=== PATIENT | female | born 1955 | race Caucasian/White ===

== ENCOUNTER 2023-09-30 15:43 | Outpatient (OUT) | payer MEDICARE, SELFPAY ==
--- NOTE | 2023-09-30 15:56 | XR_ITS ---
The [address] [address] Patient Name: TULIO HARGROVE MRN: [id number] date: 1955 Sex: F Assigned Patient Location: [facility] Current Patient Location: [facility] Accession/Order Number: [id number] Exam Date: 09/30/2023 16:00 Report Date: 09/30/2023 17:41 At the request of: JODIE CEDEÑO Procedure: XR chest 2V EXAM: XR chest 2V HISTORY: mild asthma exacerbation J45.901 . Cough for 2 months. COMPARISON: 06/02/2013 TECHNIQUE: Upright PA and lateral chest x-ray FINDINGS: The heart is not enlarged and the vasculature is not distended. No acute infiltrate, effusion or pneumothorax is identified. The osseous structures are grossly intact. XR/XR chest 2V IMPRESSION: No acute infiltrate or evidence of cardiac decompensation. The overall appearance of the chest is essentially unchanged. Electronically authenticated by: KIRSTIE AL Date: 09/30/2023 17:41
== END 2023-09-30 15:44 | disposition home or self-care (01) ==
LOC: RAD 15:51
PROVIDERS: PCP Family Medicine; Visit Provider Internal Medicine
DX: J45.901 Unspecified asthma with (acute) exacerbation (principal)
CPT/HCPCS: 71046

== ENCOUNTER 2024-06-09 10:26 | Outpatient (OUT) | payer MEDICARE, SELFPAY ==
--- OUTSIDE RECORDS SUMMARY | 2024-06-09 10:43 | XMS_ITS | CCD ---
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 Operator Name Role Phone NO, PHYSICIAN Unavailable Unavailable Suzanne Douglas Primary Care Provider [phone] Suzanne Douglas Primary Care Provider German Miranda Unavailable Charline Wilburn Unavailable Anais Farley Unavailable Mary Anne Chan Unavailable [phone] SUZANNE DOUGLAS Primary Care Physician [phone] Suzanne Douglas MD Primary Care Provider DR CHIKI MONIQUE Admitting Unavailable MISC, DR ZEPEDA Primary Care Unavailable ENEIDA, DR MONET Consulting Unavailable HAY, DR MONET Attending Unavailable VERHOFF, DR SUZANNE Rosales Consulting Unavailable VERHOALIN, DR SUZANNE Rosales Attending Unavailable VERHOALIN, DR SUZANNE Rosales Admitting Unavailable Freddy KRAUS Referring Unavailable Freddy KRAUS Attending Unavailable Freddy KRAUS Admitting Unavailable Suzanne Douglas MD Primary Care Provider Haider Lopez MD Unavailable [phone] Neftaly Mcmanus DO Unavailable [phone] MARY ANNE BABB Attending Unavailalessandra e NEFTALY MCMANUS Attending Unavailable HAIDER LOPEZ Referring Unavailable NEFTALY MCMANUS Attending Unavailable HAIDER LOPEZ Referring Unavailable Suzanne Douglas MD Primary Care Provider CARLOS HOROWITZ Referring Unavailable SUZANNE DOUGLAS Primary Care Unavailable SUZANNE DOUGLAS Primary Care Unavailable SUZANNE DOUGLAS Referring Unavailable SUZANNE DOUGLAS Referring Unavailable SUZANNE DOUGLAS Primary Care Unavailable SUZANNE DOUGLAS Attending Unavailable Allergies Allergy Classification Reported Allergen(s) Allergy Type Date of Onset Reaction(s) Facility (20 sources) Losartan Drug Allergy 4 Swelling, Rash [place], [place] (20 sources) montelukast; Translations: [montelukast] Drug Allergy 1 Rash, hives, Urticaria (disorder) [place], [place] (2 sources) montelukast; Translations: [Singulair] Drug Allergy 1 [facility] Repository Medications Current Medications Medication Drug Class(es) Dates Sig (Normalized) Sig (Original) Acetaminophen / oxyCODONE (2 sources) Opioid Agonist Start: 04-21-2011 Tylox 500 mg-5 mg Cap 1 cap(s), Oral, q4hr as needed for pain, 20 tab(s), Refill(s) 0 Start Date: 04/21/11 Status: Ordered Start: 04-21-2011 Tylox 500 mg-5 mg Cap 1 cap(s), Oral, q4hr PRN as needed for pain, 20 tab(s), Refill(s) 0, 0, Print Requisition Start Date: 04/21/11 Status: Ordered [id number] 200 actuat albuterol 0.09 mg/actuat metered dose inhaler (20 sources) beta2-Adrenergic Agonist Start: 09-23-2023 Albut clover Sulfate (Proair Hfa) 90 mcg/actuation HFA aerosol inhaler Active 2 INH INHALATION Every 4 hours September 23, 2023 12:00am Start: 09-06-2021 take 2 puff(s) by in halation every four hours as needed Albuterol Sulfate HFA 108 (90 Base) MCG/ACT 2 puffs as needed Inhalation every 4 hrs Aug, Active Start: 01-02-2020 take 1-2 puff(s) by inhalation every four hours as needed ProAir HFA 108 (90 Base) MCG/ACT 1-2 puff as needed Inhalation every 4 hrs Dec, Active Start: 06-24-2017 take 2 puff(s) by in halation every six hours as needed for wheezing albuterol sulfate HFA (PROAIR HFA) 108 (90 Base) MCG/ACT inhaler Inhale 2 puffs into the lungs every 6 hours as needed for Wheezing or Shortness of Breath 1 Inhaler 3 06/24/2017 Active Start: 06-24-2017 take 2 puff(s) by in halation every six hours as needed for wheezing albuterol sulfate HFA (PROAIR HFA) 108 (90 Base) MCG/ACT inhaler Inhale 2 puffs into the lungs every 6 hours as needed for Wheezing or Shortness of Breath 1 Inhaler 3 06/24/2017 Active End: 06-02-2024 take 2 puff(s) by inhalation once daily in the morning albuterol sulfate HFA (PROVENTIL HFA) 108 (90 Base) MCG/ACT inhaler Inhale 2 puffs into the lungs every morning 06/02/2024 Discontinued (Stop Taking at Discharge) amoxicillin 875 mg / clavulanate 125 mg oral tablet (1 source) Penicillin-class Antibacterial Start: 03-09-2024 take 1 tablet by mouth every twelve hours Amoxicillin-Pot Clavulanate Active 1 TAB PO Every 12 hours 19 03March 09, 2024 12:00am Apo-Fluticasone Propionate 0.05 mg/inh nasal spray (2 sources) Start: 04-15-2011 take 2 spray(s) nasal route once daily Apo-Fluticasone Propionate 0.05 mg/inh nasal spray 2 SPRAYS EACH NOSTRIL, Nasal, Daily, Refill(s) 0 Start Date: 04/15/11 Status: Ordered ascorbic acid 500 mg chewable tablet (15 sources) Vitamin C take 1 tablet by mouth once daily vitamin C (ASCORBIC ACID) 500 MG tablet Take 1 tablet by mouth daily Active ascorbic acid 60 mg / beta carotene 5000 unt / copper sulfate 40 mg / dl-alpha tocopheryl acetate 30 unt / sodium selenite 0.04 mg / zinc oxide 40 mg oral tablet (2 sources) Vitamin C take 1 tablet by mouth once daily Multiple Vitamins-Minerals (THERAPEUTIC MULTIVITAMIN-MINERAL S) tablet Take 1 tablet by mouth daily. 0 Active azithromycin 250 mg oral tablet (2 sources) Macrolide Antimicrobial Start: 09-25-2021 Azithromycin 250 MG 2 tablets on the first day, then 1 tablet daily for 4 days Orally Once a day for 5 day(s) Aug, Active benzonatate 200 mg oral capsule (10 sources) Non-narcotic Antitussive Start: 09-06-2021 take 1 capsule by mouth every eight hours Benzonatate 200 MG 1 capsule Orally Three times a day for 10 day(s) Aug, Active Start: 08-28-2019 take 1 capsule by [facility] three times daily as needed for cough benzonatate (TESSALON) 100 MG capsule TAKE 1 CAPSULE BY MOUTH THREE TIMES A DAY NEEDED FOR COUGH 0 08/28/2019 Active calcium carbonate 500 mg oral tablet (2 sources) take 1 tablet by mouth once daily calcium carbonate (OSCAL) 500 MG TABS tablet Take 500 mg by mouth daily 0 Active calcium chloride 0.0014 meq/ml / potassium chloride 0.004 meq/ml / sodium chloride 0.103 meq/ml / sodium lactate 0.028 meq/ml injectable solution (1 source) Start: 06-02-19 IntraVENous, at 75 mL/hr, CONTINUOUS, Starting on Wed06/02/24 at 0700, Pre-procedure(GI) cetirizine hydrochloride 10 mg oral tablet (20 sources) Histamine-1 Receptor Antagonist take 1 tablet by mouth at bedtime cetirizine (ZYRTEC) 10 MG tablet Take 1 tablet by mouth in the morning and at bedtime Active chlorhexidine gluconate 1.2 mg/ml mouthwash (2 sources) Start: 08-17-19 chlorhexidine (PERIDEX) 0.12 % solution RINSE WITH 1/2FL OZ EVERY 8 HOURS, HOLD FOR 60 SECONDS THEN SPIT OUT 1 08/16/2018 Active Chondroitin Sulfates / Glucosamine (15 sources) GLUCOSAMINE-ISAIAH DROIT IN PO Take by mouth Active GLUCOSAMINE-ISAIAH DROITIN PO Take by mouth 0 Active cinnamon preparation 500 mg oral tablet (15 sources) Non-Standardized Food Allergenic Extract take 1 tablet by mouth once daily Cinnamon 500 MG TABS Take by mouth daily Active CINNAMON PO Take by mouth Active CINNAMON PO Take by mouth 0 Active take 1 tablet by mouth once bashir y Cinnamon 500 MG TABS Take by mouth daily 0 Active ciprofloxacin 500 mg oral tablet (3 sources) Quinolone Antimicrobial Start: 06-03-2023 Cipro 500 mg Tab See Instructions, Take 1 tab day prior to procedure and 1 tab day of procdure - afterwards, # 2 tab(s), Refills(s) 0, Pharmacy: [facility]/pharmacy #[id number] Start Date: 06/03/23 Status: Ordered Start: 03-13-2021 Cipro 500 mg T ab See Instructions, Take 1 tab day prior to procedure and 1 tab day of procdure - afterwards, # 2 tab(s), Refills(s) 0, Pharmacy: [facility]/pharmacy #[id number], 165, cm, 04/03/21 14:42:00 EDT, Height/Length Dosing, 105.9, kg, 04/03/21 14:42:00 EDT, Weight Dosing Start Date: 03/24/22 Status: Ordered docosahexaenoic acid 120 mg / eicosapentaenoic acid 180 mg oral capsule (15 sources) take 1 capsule by mouth once daily [place]-3 Fatty Acids (FISH OIL) 1000 MG CAPS Take 1 capsule by mouth daily Active docosahexaenoic acid 1000 mg / omega-3 acid ethyl esters (senior care) 300 mg delayed release oral capsule (3 sources) [place]-3 Fatty Ac ids (FISH OIL) 1000 MG CPDR Take by mouth daily. 0 Active doxycycline monohydrate 100 mg oral capsule (1 source) Tetracycline-clas s Drug Start: 09-29-19 take 1 capsule by mouth every twelve hours Doxycycline Monohydrate 100 MG 1 capsule Orally every 12 hrs for 10 days September, Active esomeprazole 40 mg delayed release oral capsule (20 sources) Proton Pump Inhibitor Start: 04-15-20 11 End: 09-30-19 24 take 1 capsule by mouth once daily before breakfast esomeprazole (NEXIUM) 40 MG delayed release capsule Take 1 capsule by mouth every morning (before breakfast) 09/30/2023 Active Fish Oils (9 sources) Start: 01-04-20 19 Fish Oil Oral Start Date: 01/03/19 Status: Ordered take 1 capsule by mouth once nick ly Fish Oil 1000 MG 1 capsule Orally Once a day Active 14 actuat fluticasone furoate 0.1 mg/actuat dry powder inhaler (13 sources) Corticosteroid Start: 03-13-2024 End: 06-02-2024 fluticasone (ARNUITY ELLIPTA) 100 MCG/ACT AEPB One puff BID and rinse after use 1 each 1 03/13/2024 06/02/2024 Discontinued (Stop Taking at Discharge) Start: 10-07-2021 End: 10-07-2022 take 2 puff(s) by inhalation twice daily fluticasone (FLOVENT HFA) 220 MCG/ACT inhaler Inhale 2 puffs into the lungs 2 times daily 12 g 0 10/07/2021 10/07/2022 Active fluticasone (SUNNI NASE) 50 MCG/ACT nasal spray 2 sprays by Nasal route daily 0 Active glimepiride 4 mg oral tablet (19 sources) Sulfonylurea Start: 12-09-2023 take 1 tablet by mouth once daily in the morning glimepiride (AMARYL) 4 MG tablet Take 1 tablet by mouth every morning 90 tablet 1 01/10/2024 Active Start: 03-15-2023 take 1 tablet by harlan th in the morning glimepiride (Amaryl) 2 MG tablet Take 1 tablet by mouth in the morning. 03/15/2023 Active Start: 07-01-2022 take 1 tablet by harlan th once daily in the morning glimepiride (AMARYL) 2 MG tablet TAKE 1 TABLET BY MOUTH EVERY DAY IN THE MORNING 90 tablet 1 07/01/2022 Active Start: 02-05-2022 take 1 tablet by harlan th once daily in the morning glimepiride (AMARYL) 2 MG tablet TAKE 1 TABLET BY MOUTH EVERY DAY IN THE MORNING 90 tablet 1 02/05/2022 Active Glimepiride Acti ve hydroCHLOROthiazide 25 mg oral tablet (20 sources) Thiazide Diuretic Start: 04-15-2011 take 1 tablet by mouth once daily hydroCHLOROthiazide (HYDRODIURIL) 25 MG tablet TAKE 1 TABLET BY MOUTH EVERY DAY 90 tablet 1 01/10/2024 Active ipratropium bromide 0.042 mg/actuat metered dose nasal spray (14 sources) Anticholinergic Start: 10-30-2019 take 2 spray(s) nasal route once daily ipratropium (ATROVENT) 0.06 % nasal spray SPRAY 2 SPRAYS INTO EACH NOSTRIL EVERY DAY 1 Bottle 1 10/30/2019 Active Start: 05-12-2018 Ipratropium Br omide Active 2 PERCENT INTRANASAL Every morning May 12, 2018 1:00am take 2 drop(s) nasal route three times daily as needed Ipratropium [place] 0.06 % 2 drops in each nostril as needed Nasally Three times a day for 90 days Active lisinopril 5 mg oral tablet (20 sources) Angiotensin Converting Enzyme Inhibitor Start: 09-19-2018 take 1 tablet by mouth once daily lisinopril (PRINIVIL;ZESTRIL) 5 MG tablet Take 1 tablet by mouth daily 90 tablet 1 01/10/2024 Active loratadine 10 mg oral tablet (11 sources) Start: 05-12-2018 take 10 mg by mouth once daily in the morning Loratadine Active 10 MG PO Every morning May 12, 2018 1:00am lovastatin 40 mg oral tablet (20 sources) HMG-CoA Reductase Inhibitor Start: 04-15-2011 take 1 tablet by mouth once daily lovastatin (MEVACOR) 40 MG tablet Take 1 tablet by mouth nightly 90 tablet 1 01/10/2024 Active magnesium sulfate 0.0277 meq/ml / potassium sulfate 0.0374 meq/ml / sodium sulfate 0.257 meq/ml oral solution (3 sources) Start: 05-11-2024 End: 06-02-2024 bsmfhs-oqjcwucbr-kku sulfate (SUPREP BOWEL PREP KIT) 17.5-3.13-1.6 GM/177ML SOLN solution Indications: Colon cancer screening Use as directed. 1 each 05/11/2024 06/02/2024 Discontinued (LIST CLEANUP) meloxicam 15 mg oral tablet (20 sources) Nonsteroidal Anti-inflammatory Drug Start: 08-19-2017 take 1 tablet by mouth once daily meloxicam (MOBIC) 15 MG tablet Take 1 tablet by mouth daily 30 tablet 5 01/10/2024 Active 24 hr metFORMIN hydrochloride 500 mg extended release oral tablet (20 sources) Biguanide Start: 06-03-2023 take 2 tablets by mouth once daily at breakfast metFORMIN (GLUCOPHAGE-XR) 500 MG extended release tablet TAKE 2 TABLETS BY MOUTH EVERY DAY WITH BREAKFAST 180 tablet 1 01/10/2024 Active Start: 02-15-2019 take 2 tablets by mo uth once daily at breakfast metFORMIN (GLUCOPHAGE-XR) 500 MG extended release tablet TAKE 2 TABLETS BY MOUTH EVERY DAY WITH BREAKFAST 180 tablet 1 07/01/2022 Active Start: 01-04-2019 take 1000 mg by mout h once daily in the morning Metformin Active 1000 MG PO Every morning January 04, 2019 12:00am Start: 01-03-2019 take 1 tablet by harlan th twice daily metformin 500 mg ER Tab 500 mg = 1 tab(s), Oral, BID Start Date: 01/03/19 Status: Ordered Start: 05-12-2018 End: 01-04-2019 Metformin Discontinued Decem 2017 1:00am January 04, 2019 7:48am methylPREDNISolone 4 mg oral tablet (5 sources) Corticosteroid Start: 03-09-2024 take 1 tablet by mouth once Methylprednisolone (Medrol (Ronni)) 4 mg tablets,dose pack Active 0 PO per package directions March 09, 2024 12:00am PO PER PKG DIR for 6 days Start: 05-05-2022 methylPREDNISo lone 4 MG as directed Orally Once a day for 6 days Apr, Active Start: 09-06-2021 methylPREDNISo lone 4 MG as directed Orally Once a day for 6 days Aug, Active 24 hr metoprolol succinate 25 mg extended release oral tablet (20 sources) beta-Adrenergic Koby Start: 06-04-2023 take 1 tablet by mouth every twenty-four hours in the morning metoprolol succinate XL (Toprol-XL) 25 MG 24 hr tablet Take 1 tablet by mouth in the morning. 06/04/2023 Active Start: 05-12-2018 take 1 tablet by harlan th once daily metoprolol succinate (TOPROL XL) 25 MG extended release tablet Take 1 tablet by mouth daily 90 tablet 1 01/10/2024 Active Mometasone-Formoterol (Dulera) 100-5 mcg/actuation HFA aerosol inhaler (4 sources) Start: 12-09-2023 take 1 puff(s) by inhalation twice daily Mometasone-Formoterol (Dulera) 100-5 mcg/actuation HFA aerosol inhaler Active 2 PUFF INHALATION Twice daily December 09, 2023 10:59am Start: 09-30-2023 End: 12-09-2023 take 1 puff(s) by inhalation twice daily Mometasone-Formoterol (Dulera) 100-5 mcg/actuation HFA aerosol inhaler Discontinued 2 PUFF INHALATION Twice daily 3 90 September 30, 2023 12:00am December 09, 2023 11:00am Multiple Vitamins-Minerals (THERAPEUTIC MULTIVITAMIN-MINERALS) tablet (5 sources) take 1 tablet by mouth once daily Multiple Vitamins-Minerals (THERAPEUTIC MULTIVITAMIN-MINERALS) tablet Take 1 tablet by mouth daily. 0 Active Multiple Vitamins-Minerals ( ZINC PO) (9 sources) Multiple Vitamin s-Minerals (ZINC PO) Take by mouth Active Multiple Vitamin s-Minerals (ZINC PO) Take by mouth 0 Active Siygdzuy-Wql-Tfst-Fa-Vit K-Lut (Multivitamin Women 50 Plus) 8 mg iron-400 mcg-300 mcg Tablet (2 sources) Start: 03-09-2019 take 1 tablet by mouth once daily Uuxgqsvs-Yhd-Tdyn-Fa-Vit K-Lut (Multivitamin Women 50 Plus) 8 mg iron-400 mcg-300 mcg Tablet Active 1 TAB PO Daily March 09, 2019 12:00am Multivitamins (7 sources) take 1 tablet by mouth once daily Multivitamins 1 tab(s) Orally Daily Active Multivitamins and Minerals (2 sources) Start: 04-15-2011 Multivitamins and Minerals Refill(s) 0 Start Date: 04/15/11 Status: Ordered [place] 9-Cyd-Chu-Fish Oil (Fish Oil) 300-1,000 mg Capsule,Delayed Release(Dr/Ec) (2 sources) Start: 05-12-2018 take 300-1000 mg by mouth once daily [place] 9-Kyb-Ery-Fish Oil (Fish Oil) 300-1,000 mg Capsule,Delayed Release(Dr/Ec) Active 1 CAP PO Daily May 12, 2018 1:00am polyethylene glycol 400 4 mg/ml / propylene glycol 3 mg/ml ophthalmic solution (2 sources) polyethyl glycol -propyl glycol 0.4-0.3 % (SYSTANE) 0.4-0.3 % ophthalmic solution 1 drop daily as needed for Dry Eyes 0 Active ProAir HFA 108 (90 Base) MCG/ACT (2 sources) Start: 01-02-2020 take 1-2 puff(s) by inhalation every four hours as needed ProAir HFA 108 (90 Base) MCG/ACT 1-2 puff as needed Inhalation every 4 hrs Dec, Active triamcinolone acetonide 0.001 mg/mg oral paste (2 sources) Corticosteroi d Start: 08-30-2018 triamcinolone acetonide (KENALOG) 0.1 % paste APPLY A FILM AFTER MEALS AND BEFORE BED 3 08/30/2018 Active VITAMIN D PO (15 sources) VITAMIN D PO Nathan e by mouth daily Active VITAMIN D PO Nathan e by mouth Active VITAMIN D PO Nathan e by mouth 0 Active VITAMIN D PO Nathan e by mouth daily 0 Active vitamin e 180 mg oral capsule (20 sources) Start: 05-12-2018 take 1 capsule by mouth once daily Vitamin E Active 1 CAP PO Daily May 12, 2018 1:00am take 1 capsule by mouth in the m orning alpha tocopherol (Vitamin E) 400 units capsule Take 1 capsule by mouth in the morning. Active take 1 capsule by mouth once nick ly vitamin E 400 UNIT capsule Take 400 Units by mouth daily 0 Active Vitamin E 400 UNIT (7 sources) take 1 tablet by harlan th once daily Vitamin E 400 UNIT 1 tablet Orally Once a day Active Zinc (4 sources) ZINC PO Take by mouth Active zinc gluconate 50 mg oral tablet (8 sources) take 1 tablet by harlan th in the morning zinc gluconate 50 MG tablet Take 50 mg by mouth in the morning. Active Completed/Discontinued Medications Medication Drug Class(es) Dates Sig (Normalized) Sig (Original) amitriptyline hydrochloride 10 mg oral tablet (2 sources) Tricyclic Antidepressant Start: 01-04-2019 End: 09-23-2023 take 10 mg by mouth once daily at bedtime Amitriptyline Discontinued 10 MG PO Daily at bedtime January 04, 2019 12:00am September 23, 2023 11:14am 120 actuat budesonide 0.08 mg/actuat / formoterol fumarate 0.0045 mg/actuat metered dose inhaler (2 sources) Corticosteroid, beta2-Adrenergic Agonist Start: 09-30-2023 End: 12-09-2023 take 1 puff(s) by inhalation twice daily Budesonide-Formote rol (Symbicort) 80-4.5 mcg/actuation HFA aerosol inhaler Discontinued 2 PUFF INHALATION Twice daily 10.2 30 September 30, 2023 12:00am December 09, 2023 10:59am Rinse after use. May substitute with generic budesonide/formote rol or Breyna, whichever is covered by insurance or cheaper for the patient. Dispense #1 inhaler Dexamethasone (6 sources) Corticosteroid Start: 09-06-2021 DEXAMETHASONE Aug, 40 mg Start: 09-06-2021 DEXAMETHASONE Aug, 1 mL docusate sodium 50 mg oral capsule (11 sources) Start: 01-04-2019 End: 09-23-2023 take 1 capsule by mouth once daily Docusate Sodium (Stool Softener) 50 mg Capsule Discontinued 50 MG PO Daily January 04, 2019 12:00am September 23, 2023 11:14am Start: 01-03-2019 Dulcolax Stool Softener See Instructions, 100 mg Oral as needed, Refills(s) 0 Start Date: 01/03/19 Status: Ordered homatropine methylbromide 0.3 mg/ml / HYDROcodone bitartrate 1 mg/ml oral solution (2 sources) Opioid Agonist, Cholinergic Muscarinic Agonist Start: 05-12-2018 End: 09-23-2023 take 1 [tsp_us] by mouth every six hours Hydrocodone-Homatropine Discontinued 1 TSP PO Q6H May 12, 2018 1:00am September 23, 2023 11:14am Ucukaudy-Lmg-Egml ous Fumarate (Multi Vitamin) 9 mg iron/15 mL Liquid (2 sources) Start: 05-12-2018 End: 03-09-2019 take 1 tablet by mouth once daily Qolpcito-Ckv-Wrxnmbx Fumarate (Multi Vitamin) 9 mg iron/15 mL Liquid Discontinued 1 TAB PO Daily May 12, 2018 1:00am March 09, 2019 8:36am olopatadine 1 mg/ml ophthalmic solution (20 sources) Histamine-1 Receptor Inhibitor Start: 05-12-2018 End: 12-09-2023 take 1 drop(s) into the eye(s) once daily in the morning Olopatadine (Patanol) 0.1 % Drops Discontinued 1 - 2 DROPS EYE-BOTH Every morning May 12, 2018 1:00am December 09, 2023 10:58am Start: 10-28-2012 take 1 drop(s) into the eye(s) once daily olopatadine (PATANOL) 0.1 % ophthalmic solution Place 1 drop into both eyes daily. 15 mL 1 10/28/2012 Active Start: 04-15-2011 take 1 drop(s) into the eye(s) once daily Patanol 0.1% ophthalmic solution 1 drop(s), Eye-Both, Daily, mL, Refill(s) 0 Start Date: 04/15/11 Status: Ordered Start: 04-15-2011 take 1 drop(s) into the eye(s) once daily Patanol 0.1% ophthalmic solution 1 drop(s), Eye-Both, Daily, mL, Refill(s) 0 Start Date: 04/15/11 Status: Ordered take 1 drop(s) into the eye(s) twice daily Patanol 0.1 % 1 drop into affected eye Ophthalmic Twice a day ON HOLD Active take 1 drop(s) into the eye(s) twice daily Patanol 0.1 % 1 drop into affected eye Ophthalmic Twice a day ON HOLD Active predniSONE 20 mg oral tablet (4 sources) Start: 09-30-2023 End: 12-09-2023 Prednisone Discontinued 20 M G PO As Directed September 30, 2023 12:00am December 09, 2023 10:58am 3 tabs x 3 days, then 2 tabs x 3 days, then 1 tab x 3 days Start: 09-25-2021 predniSONE 10 MG 4 tablets daily for 3 days, 2 tablets daily for 3 days, 1 tablet daily for 7 days Orally Once a day for 13 days Aug, Active 5 ml sodium chloride 9 mg/ml injection (3 sources) Start: 06-02-2024 5-40 mL, Intra VENous, EVERY 12 HOURS SCHEDULED (2 times per day), First dose on Wed06/02/24 at 0900, Until Discontinued, For Line Patency: Peripheral IV = 5 mL; Midline or Central Line = 10 mL/lumen. If following IV push medication, administer flush at same rate as the IV push. Flush volume is determined by type of infusion therapy being given. For non-viscous solutions use: Peripheral IV = 5 mL Midline or Central Line = 10 mL/lumen For viscous solutions (i.e. blood components, parenteral nutrition, contrast media, or after obtaining blood sample) use: Peripheral IV = 10 mL Midline or Central Line = 20 mL/lumen, Pre-procedure(GI) Start: 06-02-2024 take 25 mL intraveno usly every hour as needed 25 mL, IntraVENous, at 100 mL/hr, PRN, If patient receiving piggyback infusions without ordered maintenance IV fluids or with frequent/long duration piggyback infusions, Starting on Wed06/02/24 at 0640, Administer at the same rate as the piggyback being infused., Pre-procedure(GI) Start: 01-03-2025 5-40 mL, Intra VENous, PRN, Starting on Wed06/02/24 at 0640, Until Discontinued, Line Care, After every IV line use, For Line Patency: Peripheral IV = 5 mL; Midline or Central Line = 10 mL/lumen. If following IV push medication, administer flush at same rate as the IV push. Flush volume is determined by type of infusion therapy being given. For non-viscous solutions use: Peripheral IV = 5 mL Midline or Central Line = 10 mL/lumen For viscous solutions (i.e. blood components, parenteral nutrition, contrast media, or after obtaining blood sample) use: Peripheral IV = 10 mL Midline or Central Line = 20 mL/lumen, Pre-procedure(GI) Vitamin E 400 unit(s) Cap (2 sources) Start: 04-15-2011 take 1 capsule by mouth once daily Vitamin E 400 unit(s) Cap 400 International_Unit = 1 cap(s), Oral, Daily, cap(s), Refills(s) 0 Start Date: 04/15/11 Status: Ordered Problems Active Problems Problem Classification Problem Date Documented Date Episodic/Chronic Acquired foot deformities (2 sources) Hammer toe; Translations: [Other hammer toe(s) (acquired), right foot] 07-15-2023 Chronic Asthma (20 sources) Asthma; Translations: [Cough variant asthma] Onset: 03-14-2011 Resolved: 03-17-2024 02-28-2015 Chronic Biliary tract disease (2 sources) Calculus of gallbladder with cholecystitis 11-17-2013 Episodic Cancer; other and unspecified primary (2 sources) History of bladder neoplasm 01-03-2019 Episodic Cardiac dysrhythmias (2 sources) Sinus bradycardia; Translations: [Bradycardia, unspecified] 06-02-2024 Episodic Conduction disorders (2 sources) Sinus node dysfunction; Translations: [Other specified heart block] 06-02-2024 Chronic Diabetes mellitus with complications (16 sources) Polyneuropathy due to type 2 diabetes mellitus; Translations: [Type 2 diabetes mellitus with diabetic polyneuropathy] Onset: 07-01-2022 07-09-2023 Chronic Diabetes mellitus without complication (19 sources) Type 2 diabetes mellitus without complication; Translations: [Type 2 diabetes mellitus without complications] Onset: 09-27-2021 Chronic Disorders of lipid metabolism (20 sources) Pure hypercholesterolemia; Translations: [Hypercholesterolemia] Onset: 03-14-2011 03-14-2011 Chronic Esophageal disorders (20 sources) Gastroesophageal reflux disease; Translations: [Gastroesophageal reflux disease without esophagitis] Onset: 03-14-2011 03-14-2011 Chronic Essential hypertension (20 sources) Benign essential hypertension; Translations: [Hypertensive disorder] Onset: 03-14-2011 03-14-2011 Chronic Menopausal disorders (13 sources) Postmenopausal bleeding; Translations: [Postmenopausal bleeding] Onset: 06-02-2013 06-02-2013 Chronic Other lower respiratory disease (6 sources) Chronic cough; Translations: [Cough] Episodic Other nervous system disorders (1 source) Metallic taste; Translations: [Metallic taste] Episodic Other nervous system disorders (1 source) Sensory disorder of smell and/or taste; Translations: [Disturbance of smell and taste] Episodic Other nutritional; endocrine; and metabolic disorders (1 source) Hypercalcemia; Translations: [Hypercalcemia] Chronic Other nutritional; endocrine; and metabolic disorders (2 sources) Obesity, unspecified; Translations: [Obesity, unspecified] 09-30-2023 Chronic Other nutritional; endocrine; and metabolic disorders (1 source) Body mass index (BMI) 39.0-39.9, adult; Translations: [Body Mass Index 39.0-39.9, adult] 09-30-2023 Chronic Other nutritional; endocrine; and metabolic disorders (4 sources) Severe obesity; Translations: [Morbid (severe) obesity due to excess calories] Onset: 10-13-2022 10-13-2022 Chronic Other screening for suspected conditions (not mental disorders or infectious disease) (3 sources) Patient encounter status; Translations: [Encounter for screening mammogram for malignant neoplasm of breast] Onset: 05-22-2024 Episodic Other upper respiratory disease (15 sources) Allergic rhinitis; Translations: [Allergic rhinitis, unspecified] Onset: 03-14-2011 02-28-2015 Chronic Other upper respiratory disease (7 sources) Chronic rhinitis; Translations: [Chronic rhinitis] Chronic Other upper respiratory disease (7 sources) Allergic rhinitis due to pollen; Translations: [Allergic rhinitis due to pollen] Chronic Other upper respiratory disease (1 source) Allergic rhinitis due to pollen Chronic Other upper respiratory disease (2 sources) Allergic rhinitis, unspecified; Translations: [Allergic rhinitis, cause unspecified] 09-30-2023 Chronic Other upper respiratory disease (6 sources) Hoarse; Translations: [Dysphonia] Episodic Other upper respiratory disease (6 sources) Singers' nodes; Translations: [Nodules of vocal cords] Episodic Other upper respiratory disease (6 sources) Vocal cord cyst; 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] Episodic Residual codes; unclassified (1 source) Obstructive sleep apnea syndrome; Translations: [Obstructive sleep apnea (adult) (pediatric)] Chronic Residual codes; unclassified (1 source) Obstructive sleep apnea (adult) (pediatric) Chronic Spondylosis; intervertebral disc disorders; other back problems (9 sources) Degeneration of lumbar intervertebral disc; Translations: [Other intervertebral disc degeneration, lumbar region] Onset: 07-09-2023 07-09-2023 Chronic Unclassified (2 sources) Patient encounter status; Translations: [Visit for screening mammogram] Past or Other Problems Problem Classification Problem Date Documented Da te Episodic/Chronic Cancer of bladder (15 sources) Malignant tumor of vault of bladder; Translations: [Malignant tumor of urinary bladder] Onset: 03-14-2011 Resolved: 10-13-2022 03-14-2011 Chronic Cancer of bladder (8 sources) H/O: malignant neoplasm; Translations: [Personal history of malignant neoplasm of bladder] Onset: 07-13-2023 07-13-2023 Episodic Diabetes mellitus without complication (13 sources) Impaired fasting glycaemia; Translations: [Impaired fasting glucose] Onset: 03-14-2011 Resolved: 04-12-2018 04-12-2018 Episodic Diseases of white blood cells (10 sources) Familial eosinophilia; 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] Onset: 03-17-2024 Resolved: 03-17-2024 09-30-2023 Chronic Immunizations and screening for infectious disease (1 source) Contact with and (suspected) exposure to other viral communicable diseases Onset: 09-28-2021 Resolved: 09-28-2021 Episodic Nonmalignant breast conditions (13 sources) Red breast; Translations: [Erythematous condition, unspecified] Onset: 08-14-2014 Resolved: 04-12-2018 04-12-2018 Episodic Other and unspecified benign neoplasm (13 sources) History of polyp of colon; Translations: [Personal history of colonic polyps] Onset: 06-02-2013 06-02-2013 Episodic Other nervous system disorders (13 sources) Burning sensation; Translations: [Other disturbances of skin sensation] Onset: 08-14-2014 Resolved: 04-12-2018 04-12-2018 Episodic Other nutritional; endocrine; and metabolic disorders (8 sources) Body mass index 30+ - obesity; Translations: [Body mass index (BMI) 39.0-39.9, adult] Onset: 03-17-2024 Resolved: 03-17-2024 12-09-2023 Chronic Other nutritional; endocrine; and metabolic disorders (8 sources) Obesity; Translations: [Obesity, unspecified] Onset: 03-17-2024 Resolved: 03-17-2024 09-30-2023 Chronic Other upper respiratory disease (9 sources) Deviated nasal septum; Translations: [Deviated nasal septum] Onset: 07-09-2023 07-09-2023 Episodic Other upper respiratory infections (18 sources) Acute sinusitis; Translations: [Acute laryngitis] Onset: 07-04-2012 07-04-2012 Episodic Unclassified (3 sources) Cough R05.9 Onset: 09-06-2021 Resolved: 09-06-2021 Unclassified (1 source) Persistent cough for 3 weeks or longer R05.3 Onset: 09-28-2021 Resolved: 09-28-2021 Unclassified (4 sources) Onset: 04-12-2024 04-12-2024 Viral infection (1 source) COVID-19 Results Test Name Value Interpretation Reference Range [facility] Basic Metabolic Panelon Anion gap [Moles/Vol] 11 mmol/L 9 - 17 mmol/L [facility] Calcium [Mass/Vol] 9.5 mg/dL 8.6 - 10. 4 mg/dL [email or web address] [place] Chloride [Moles/Vol] 100 mmol/L 98 - 10 7 mmol/L [facility] CO2 [Moles/Vol] 26 mmol/L 20 - 31 mmol/L [facility] Creatinine [Mass/Vol] 0.7 mg/dL 0.5 - 0.9 mg/dL [facility] Est, Glom Filt Rate - PINF [facility] Comment on above: These results are not intended for use in patients <18 years of age. eGFR results are calculated without a race factor using the 2020 CKD-EPI equation. Careful clinical correlation is recommended, particularly when comparing to results calculated using previous equations. The CKD-EPI equation is less accurate in patients with extremes of muscle mass, extra-renal metabolism of creatine, excessive creatine ingestion, or following therapy that affects renal tubular secretion. Glucose [Mass/Vol] 185 mg/dL High 70 - 99 mg/dL [facility] Interpretation and review of laboratory results Abnormal [facility] Potassium [Moles/Vol] 3.8 mmol/L 3.7 - 5.3 mmol/L [facility] Sodium [Moles/Vol] 137 mmol/L 135 - 144 mmol/L [facility] Urea nitrogen [Mass/Vol] 18 mg/dL 8 - 23 mg/dL [facility] Urea nitrogen/Creatinine [Mass ratio] 26 mg/mg High 9 - 20 [facility] Magnesiumon 06-02-2024 Magnesium [Mass/Vol] 1.8 mg/dL 1.6 - 2 .6 mg/dL [facility] No Panel Informationon 06-02 [facility] Troponinon 06-02-2024 Troponin I.cardiac High sensitivity method [Mass/Vol] 13 ng/L 0 - 14 ng/L [facility] Comment on above: High Sensitivity Tro ponin values cannot be compared with other Troponin methodologies. [facility] DBT Breast - bilateral kenny lemusn 05-23-2024 OVERALL ASSESSMENT: BIRADS: 1 Negative, no evidence of malignancy. A letter of notification will be mailed to the patient. Performing Facility: [place] [address] [facility] HISTORY: Screening. Family history of breast carcinoma. TECHNIQUE: Bilateral digital screening mammogram with CAD. Digital breast tomosynthesis imaging. FINDINGS: Two views of each breast were obtained. There are scattered areas of fibroglandular density. BREAST DENSITY CODE: S: Scattered No change from prior studies, the most recent of 05/20/2023. Suspicious calcifications: None. Suspicious mass: None. (If skin markers were applied, circles represent skin lesions and linear markers represent scars.) [facility] DBT Breast - bilateral scree Mariahrdered By: Mehul Doyle on 05-23-2024 [facility] Work Phone: [facility] DIGITAL SCREEN AYESHA Scott 05-23-2024 [facility] DIGITAL SCREEN BILATERAL HISTORY: Screening. Family history of breast carcinoma. TECHNIQUE: Bilateral digital screening mammogram with CAD. Digital breast tomosynthesis imaging. FINDINGS: Two views of each breast were obtained. There are scattered areas of fibroglandular density. BREAST DENSITY CODE: S: Scattered No change from prior studies, the most recent of 05/20/2023. Suspicious calcifications: None. Suspicious mass: None. (If skin markers were applied, circles represent skin lesions and linear markers represent scars.) IMPRESSION: OVERALL ASSESSMENT: BIRADS: 1 Negative, no evidence of malignancy. A letter of notification will be mailed to the patient. Performing Facility: [facility] [address] [place] [address] Interpreted by: Mehul Doyle Jr., MD Signed by: Mehul Doyle Jr., MD 05/23/24 Final result Normal [facility] DBT Breast - bilateral scree mariahharshil 05-22-2024 Radiology Study observation (narrative) [facility] Comp Metabolic Profon 2023 Albumin [Mass/Vol] 3.9 g/dL Normal 3.5-5.[address] [facility] Comment on above: Performed By: #### C P #### [facility] [address] [place] [address] [employer]amer: Naldo Tinsley MD #### MIKE GLYHGB #### [facility] [place] [address] [place], [place] [id number] Metal Stud Framer: Nelson Mckenzie MD Alkaline Phos 59 U/L Normal 35-104 [facility] Comment on above: Performed By: #### C P #### [facility] [address] [place] [address] [employer] Framer: Naldo Tinsley MD #### MIKE GLYHGB #### [facility] [place] [address] [place], [place] [id number] Metal [employer] Framer: Nelson Mckenzie MD ALT [Catalytic activity/Vol] 21 U/L Normal 5-[address] [facility] Comment on above: Performed By: #### C P #### [facility] [address] [place], [place] [id number] [employer] Framer: Naldo Tinsley MD #### LIPR, GLYHGB #### [facility] [address] [place], [place] [phone] Metal Stud Framer: Nelson Mckenzie MD Anion gap [Moles/Vol] 12 mmol/L Normal 9-[address] [facility] Comment on above: Performed By: #### C P #### [facility] [address] [place], [place] [id number] [employer] Stud Framer: Naldo Tinsley MD #### LIPR, GLYHGB #### [address] [id number] [employer] Framer: Nelson Mckenzie MD AST [Catalytic activity/Vol] 23 U/L Normal <[address] [facility] Comment on above: Performed By: #### C P #### [facility] [address] [place], [place] [id number] [employer] Framer: Naldo Tinsley MD #### LIPR, GLYHGB #### [address] [address] [employer] Framer: Nelson Mckenzie MD Bilirubin [Mass/Vol] 0.6 mg/dL Normal 0.3-1.2 [facility] Comment on above: Performed By: #### C P #### [facility] [address] [place], [place] [id number] Metal Stud Framer: Naldo Tinsley MD #### LIPR, GLYHGB #### [address] [address] [employer] Framer: Nelson Mckenzie MD BUN/CRE Ratio 30 High 9-20 [facility] Comment on above: Performed By: #### C P #### [facility] [address] [place], [place] [id number] Metal Stud Framer: Naldo Tinsley MD #### LIPMatt GLYHGB #### [facility] [address] [place], [place] [id number] Metal Stud Framer: Nelson Mckenzie MD Calcium [Mass/Vol] 9.7 mg/dL Normal 8.6-10.[address] [facility] Comment on above: Performed By: #### C P #### [facility] [address] [place], [place] [id number] [employer] Framer: Naldo Tinsley MD #### MIKE GLYHGB #### [address] [id number] Metal Stud Framer: Nelson Mckenzie MD Chloride [Moles/Vol] 98 mmol/L Normal 98-107 [facility] Comment on above: Performed By: #### C P #### [facility] [address] [place], [place] [id number] Metal Stud Framer: Naldo Tinsley MD #### MIKE GLYHGB #### [address] [address] [employer] Stud Framer: Nelson Mckenzie MD CO2 [Moles/Vol] 25 mmol/L Normal 20-31 [facility] Comment on above: Performed By: #### C P #### [facility] [address] [place], [place] [id number] Metal Stud Framer: Naldo Tinsley MD #### MIKE GLYHGB #### [address] [address] [employer] Stud Framer: Nelson Mckenzie MD Creatinine [Mass/Vol] 0.7 mg/dL Normal 0.5-0.[address] [facility] Comment on above: Performed By: #### C P #### [facility] [address] [facility] [place], [place] [id number] Metal Stud Framer: Naldo Tinsley MD #### MIKE GLYHGB #### [place] [address] [place], [place] 8077408 Metal Stud Framer: Nelson Mckenzie MD GFR/1.73 sq M.predicted among non-blacks MDRD (S/P/Bld) [Vol rate/Area] mL/min/{1.73_m2} Normal >[address] [facility] Comment on above: Result Comment: These results are not intended for use in patients <18 years of age. eGFR results are calculated without a race factor using the 2020 CKD-EPI equation. Careful clinical correlation is recommended, particularly when comparing to results calculated using previous equations. The CKD-EPI equation is less accurate in patients with extremes of muscle mass, extra-renal metabolism of creatine, excessive creatine ingestion, or following therapy that affects renal tubular secretion. Performed By: #### C P #### [facility] [address] [place], [place] [id number] Metal Stud Framer: Naldo Tinsley MD #### MIKE GLYHGB #### [address] [id number] Metal Stud Framer: Nelson Mckenzie MD Glucose [Mass/Vol] 138 mg/dL High 70-[address] [facility] Comment on above: Performed By: #### C P #### [facility] [address] [place], [place] [phone] Metal Stud Framer: Naldo Tinsley MD #### MIKE GLYHGB #### [place] [address] [place], [place] [id number] Metal Stud Framer: Nelson Mckenzie MD Potassium [Moles/Vol] 4.3 mmol/L Normal 3.7-5.[address] [facility] Comment on above: Performed By: #### C P #### [facility] [address] [place], [place] [id number] Metal Stud Framer: Naldo Tinsley MD #### LIPR, GLYHGB #### [facility] [address] [place], [place] [phone] Metal Stud Framer: Nelson Mckenzie MD Protein [Mass/Vol] 7.1 g/dL Normal 6.4-8.[address] [facility] Comment on above: Performed By: #### C P #### [facility] [address] [place], [place] [id number] Metal Stud Framer: Nadlo Tinsley MD #### LIPR, GLYHGB #### [place] [address] [place], [place] 7178308 Metal Stud Framer: Nelson Mckenzie MD Sodium [Moles/Vol] 135 mmol/L Normal 135-[address] [facility] Comment on above: Performed By: #### C P #### [facility] [address] [place], [place] [id number] Metal Stud Framer: Naldo Tinsley MD #### LIPR, GLYHGB #### [facility] [address] [place], [place] [address] Metal Stud Framer: Nelson Mckenzie MD Urea nitrogen [Mass/Vol] 21 mg/dL Normal 8-[address] [facility] Comment on above: Performed By: #### C P #### [facility] [address] [place], [place] [id number] Metal Stud Framer: Naldo Tinsley MD #### LIPR, GLYHGB #### [address] [phone] Metal Stud Framer: Nelson Mckenzie MD Hemoglobin A1Con 10-04-2023 Glucose [Mass/Vol] 243 mg/dL Normal [facility] Comment on above: Result Comment: The ADA and AACC recommend providing the estimated average glucose result to permit better patient understanding of their HBA1c result. Performed By: #### C P #### [facility] [address] [place], [place] [id number] Metal Stud Framer: Naldo Tinsley MD #### LIPR, GLYHGB #### [facility] [address] [place], [place] [id number] Metal Stud Framer: Nelson Mckenzie MD HbA1c (Bld) [Mass fraction] 10.1 % High 4.0-6.[address] [facility] Comment on above: Performed By: #### C P #### [facility] [address] [place], [place] [id number] Metal Stud Framer: Naldo Tinsley MD #### LIPR, GLYHGB #### [place] [address] [place], [place] [address] Metal Stud Framer: Nelson Mckenzie MD Lipid Profileon 10-04-2023 Cholesterol [Mass/Vol] 181 mg/dL Normal 0-[address] [facility] Comment on above: Result Comment: Cholesterol Guidelines: <200 Desirable 200-240 Borderline >240 Undesirable Performed By: #### C P #### [facility] [address] [place], [place] [phone] Metal Stud Framer: Naldo Tinsley MD #### LIPMatt, GLYHGB #### [facility] [address] [place] [id number] Metal [employer] Framer: Nelson Mckenzie MD Cholesterol in HDL [Mass/Vol] 68 mg/dL Normal >[address] [facility] Comment on above: Result Comment: HDL Guidelines: <40 Undesirable 40-59 Borderline >59 Desirable Performed By: #### C P #### [facility] [address] [place], [place] [phone] Metal Stud Framer: Naldo Tinsley MD #### LIPR, GLYHGB #### [facility] [address] [place], [place] 118[address] Metal Stud Framer: Nelson Mckenzie MD Cholesterol in LDL [Mass/Vol] 82 mg/dL Normal 0-[address] [facility] Comment on above: Result Comment: LDL Guidelines: <100 Desirable 100-129 Near to/above Desirable 130-159 Borderline >159 Undesirable Direct (measured) LDL and calculated LDL are not interchangeable tests. Performed By: #### C P #### [facility] [address] [place] [address] Metal Stud Framer: Naldo Tinsley MD #### LIPR, GLYHGB #### [address] [address] Metal [employer] Framer: Nelson Mckenzie MD Cholesterol in VLDL [Mass/Vol] 32 mg/dL Normal [facility] Comment on above: Performed By: #### C P #### [facility] [address] [place] [address] Metal Stud Framer: Naldo Tinsley MD #### LIPMatt, GLYHGB #### [address] [address] Metal Stud Framer: Nelson Mckenzie MD Cholesterol.total/Ch olesterol in HDL [Mass ratio] 3.0 {ratio} Normal [facility] Comment on above: Performed By: #### C P #### [facility] [address] [place] [address] Metal Stud Framer: Naldo Tinsley MD #### LIPMatt, GLYHGB #### [address] [address] Metal Stud Framer: Nelson Mckenzie MD Triglyceride [Mass/Vol] 159 mg/dL High <[address] [facility] Comment on above: Result Comment: Triglyceride Guidelines: <150 Desirable 150-199 Borderline 200-499 High >499 Very high Based on AHA Guidelines for fasting triglyceride, February 2012. Performed By: #### C P #### [facility] [address] [place] [address] Metal Stud Framer: Naldo Tinsley MD #### LIPMatt, GLYHGB #### [address] [address] Metal Stud Framer: Nelson Mckenzie MD Microalb.,Random Uron 2023 Creatinine [Mass/Vol] 36.4 mg/dL Normal 28.0-217.[address] [facility] Comment on above: Performed By: #### U RNMAB #### [facility] [place], [place] [address] Metal Stud Framer: Nelson Mckenzie MD Microalb/Creat Ratio Can not be calculated Normal <[address] [facility] Comment on above: Performed By: #### U RNMAB #### [facility] [address] [place], [place] [address] Metal Stud Framer: Nelson Mckenzie MD Microalbumin conc. <12 Normal <[address] [facility] Comment on above: Performed By: #### U RNMAB #### [place] [address] [place], [place] [id number] Metal Stud Framer: Nelson Mckenzie MD [facility] Fish and Urine Cyt o ([facility])on 07-12-2023 UVFISH & UC Diagnosis Info Invalid Interpretation Code [facility] Comment on above: Result Comment: A:Ur ine,Urine:Voided Diagnosis Summary - No evidence of high grade urothelial carcinoma identified. Adequate cellularity for evaluation. Diagnosis Summary - The [facility] FISH study detected normal copy numbers for chromosomes 3, 7, 17, and 9p21. No evidence of aneuploidy for chromosomes 3, 7, or 17 or deletion of the 9p21 locus was found in cells present in this specimen. This test does not rule out the possibility of a low grade non-invasive papillary urothelial carcinoma. These findings should be correlated with cytology and cystoscopy results.* CPT 79311, 23817. 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 Electronically signed by : on: 07/12/2023 12:28:58 Performed By: #### 1 [id number] #### [facility] [address] [place] [address] Reminderson 07-07-2023 Reminders -- From: Jodi Fisher To: POPEYE Cosby Cook; Sent: 07/07/2023 11:29:44 EST Show up: 06/05/2024 11:29:00 EST Subject: Recall: Scope 07/2024 Due Date/Time: 06/05/2024 11:29:00 EST Reminder/Recall Schedule repeat testing. Test: Cystoscopy (FISH/Cytol) Test due in: 12 months [facility] Consent for Procedure/Surger yon 07-05-2023 Consent for Procedure/Surgery [id number] 69#[id number] [facility] Consent for Treatmenton Consent for Treatment [id number] [id number] [facility] Inpatient Patient Summaryon 07-05-2023 Inpatient Patient Summary [address] [address] Clinical Summary Person Information Name: KATHRYN GIORDANO Age: 68 Years : 1955 Sex: Female PCP: SUZANNE DOUGLAS MD Marital Status: Race: White Ethnicity: Non- or Language: Danish Visit Id: Visit Reason: BLADDER CANCER Speciality: Acuity: Enc Type: Outpatient Med Service: Surgery Arrival: 07/05/2023 15:17:52 Discharge: Dispo Type: Address: [address] [place] [address] [address] [facility] [id number] Provider Notes: Diagnosis: Problems Active History of bladder cancer Smoking Status: Functional Status: Sensory Deficits: History of Falls: Mobility Assistance Prior to Admission: ADLs: Current Level of Assistance for Self-Care/Mobility: Cognitive Status: Allergies Singulair () Laboratory or Other Results This Visit (last charted value for your 07/05/2023 visit) No Laboratory or Other Results This Visit Measurements: Height: Weight: Blood Pressure: Not Valued / Not Valued BMI: Procedures No Procedures Documented Immunizations No Immunizations Documented This Visit Final Med List: acetaminophen-oxyco done (Tylox 500 mg-5 mg Cap) 1 Capsules By Mouth every 4 hours as needed as needed for pain. Refills: 0. ciprofloxacin (Cipro 500 mg Tab) Take 1 tab day prior to procedure and 1 tab day of procdure - afterwards. Refills: 0. docusate (Dulcolax Stool Softener) 100 mg Oral as needed. esomeprazole (Nexium 40 mg Cap-EC) By Mouth every day. fluticasone nasal (Apo-Fluticasone Propionate 0.05 mg/inh nasal spray) 2 SPRAYS EACH NOSTRIL Nasal Inhalation every day. hydrochlorothiazide (hydrochlorothiazid e 25 mg Tab) 1 Tablets By Mouth every day. lisinopril (lisinopril 5 mg Tab) 1 Tablets By Mouth every day. loratadine (loratadine 10 mg Tab) 1 Tablets By Mouth every day. lovastatin (lovastatin 40 mg Tab) 1 Tablets By Mouth every day. metformin (metformin 500 mg ER Tab) 1 Tablets By Mouth 2 times a day. metoprolol (metoprolol 25 mg ER Tab) 1 Tablets By Mouth every day. multivitamin with minerals (Multivitamins and Minerals) olopatadine ophthalmic (Patanol 0.1% ophthalmic solution) 1 Drops Both eyes every day. omega-3 polyunsaturated fatty acids (Fish Oil) By Mouth. vitamin E (Vitamin E 400 unit(s) Cap) 1 Capsules By Mouth every day. Care Team Members: Attending Physician: Freddy KRAUS MD Consulting Physician: Referring Physician: Freddy KRAUS MD Follow up: With: Address: When: Freddy KRAUS [address] [place], [place] [address], [address], [place] [phone] Business (1) Comments: As we discussed, your bladder looks good. Evidence of prior scars. The plan will be for a repeat scope in about 1 year provided the FISH test is negative. Please finish your antibiotic. Have a great day. Patient Education Information: EU - Cystoscopy Discharge Instructions (Custom) [facility] IntraOperative Documentson 0 07-05-2023 IntraOperative Documents [id number] [facility] Main OR Intraoperative Recor don 07-05-2023 Main OR Intraoperative Record IntraOp Document Type FTURO Summary Primary Physician: Freddy KRAUS MD Finalized Date/Time: 07/05/23 16:15:35 Pt. Name: KATHRYN GIORDANO Julio Cesar/Sex: 1955 Female Med Rec #: [id number] Physician: Freddy KRAUS MD Financial #: [id number] Pt. Type: O Room/Bed: / Admit/Disch: 07/05/23 15:17:52 - Institution: Case Times FTURO Entry 1 Patient Times In Room 07/05/23 16:06:00 Out Room 07/05/23 16:14:00 Procedure Times Start 07/05/23 16:10:00 Stop 07/05/23 16:11:00 Anesthesia Times Last Modified By: Eliza Jose 07/05/23 16:15:27 Case Attendance FTURO Entry 1 Entry 2 Entry 3 Case Attendee Freddy KRAUS MD, Kelsie E Troike, Kendall R Role Performed Surgeon - Primary Offset Pressman - Primary Scrub - Primary Time In 07/05/23 16:06:00 07/05/23 16:06:00 07/05/23 16:06:00 Time Out 07/05/23 16:14:00 07/05/23 16:14:00 07/05/23 16:14:00 Procedure CYSTOSCOPY LOCAL(.) CYSTOSCOPY LOCAL(.) CYSTOSCOPY LOCAL(.) Comments Last Modified By: Eliza Jose Kelsie E Burgderfer, Kelsie E 07/05/23 16:15:28 07/05/23 16:15:28 07/05/23 16:15:28 Surgical Procedures FTURO Entry 1 Procedure Description Procedure CYSTOSCOPY LOCAL Modifiers . Surgeon Description CYSTO WITH FISH AND CYTOLOGY Primary Procedure Yes Primary Surgeon Freddy KRAUS MD Start 07/05/23 16:10:00 Stop 07/05/23 16:11:00 Anesthesia Type Local Surgical Service Urology Wound Class 2 - Clean-Contaminated Last Modified By: Eliza Jose 07/05/23 16:15:30 General Case Data FTURO Pre-Care Text: Classifies surgical wound, implements aseptic technique, initiates traffic control Entry 1 Case Information OR URO 1 FT Case Level None Wound Class 2 - Clean-Contaminated Specialty Urology Preop Diagnosis BLADDER CANCER Postop Same As Preop Yes Postop Diagnosis BLADDER CANCER Outcomes Met? Yes Last Modified By: Eliza Jose 07/05/23 16:08:05 Post-Care Text: The patient is free from signs and symptoms of infection EU IntraOp - FTURO Pre-Care Text: Implements protective measures prior to operative or invasive procedure, confirms identity before the operative or invasive procedure, verifies operative procedure, surgical site, and laterality Entry 1 EU Perioperative Protocols Procedure(s) CYSTOSCOPY LOCAL(.) Patient Identity Birthday, ID Band Verified (select at Check, Patient least 2): Participation Consents / H and P Anesthesia Consent, Operative Site N/A Verified HandP, Surgery/Procedure Marking Verified Consent Surgical Site Yes Laterality Verified n/a Verified Procedure Verified Yes Correct Patient Yes Position Verified Availability Equipment, Medication Time Out NAYANA WHITNEY, Freddy Paris, Verified (If Participants Eliza Jose, Applicable) Jr Ayala Time Out Complete 07/05/23 16:08:00 Allergies Reviewed? Yes Allergies Reviewed Self/Patient With Body Position Low Lithotomy Prep Area VAGINA Prep Agents Betadine Solution Skin. Condition Intact, [place], Warm, and Dry Additional FISH Specimens Collected Vitals - EU Blood Pressure 160/76 Pulse 81 bpm Respirations 16 br/min SPO2 97 % EBL 0 IandO - EU Total Intake 0 mL Total Output 0 mL Outcomes Met? Yes Last Modified By: Eliza Jose 07/05/23 16:09:39 Post-Care Text: The patient is free from signs and symptoms of injury caused by extraneous objects Sign Out FTURO Entry 1 Before Patient Leaves OR Nurse verbally Yes Nurse verbally n/a confirms with the confirms with the team the name of team that the procedure(s) instrument, sponge, recorded and needle counts are correct (or N/A) Nurse verbally Yes Nurse verbally Yes confirms with the confirms with the team how the team whether there specimen is labeled are any equipment (including patient problems to be name), if applicable addressed Sign Out Complete 07/05/23 16:11:00 Last Modified By: Eliza Jose 07/05/23 16:12:53 Case Comments Finalized By: Eliza Jose Document Signatures Signed By: Eliza Jose 07/05/23 16:15 Eliza Jose 07/05/23 16:15 [facility] Main OR Preoperative Recordo n 07-05-2023 Main OR Preoperative Record Holding Area Document Type FTURO Summary Primary Physician: Freddy KRAUS MD Finalized Date/Time: 07/05/23 15:53:59 Pt. Name: KATHRYN GIORDANO Julieth Harrell/Sex: 1955 Female Med Rec #: [id number] Physician: Freddy KRAUS MD Financial #: [id number] Pt. Type: O Room/Bed: / Admit/Disch: 07/05/23 15:17:52 - Institution: Case Times Holding FTURO Pre-Care Text: Verifies consent for planned procedure, identifies individual values and wishes concerning care, includes family members in perioperative teaching Secures patient's records' belongings, and valuables, maintains patient's dignity and privacy, and maintains patient confidentiality Entry 1 In Holding 07/05/23 15:46:00 Outcomes Met? Yes Last Modified By: CHARITY De Leon RN, Ruthann 07/05/23 15:49:05 Post-Care Text: The patient participates in decisions affecting his or her perioperative plan of care The patient's right to privacy is maintained Surgery Checklist FTURO Entry 1 Patient Birthday, ID Band Procedure History and Physical, Identification: Check, Patient Verification: Surgical Consent, With Participation Patient NPO after Midnight: n/a Personal Items: Glasses Personal Items clothes Limitations: none Comment: Complaints of Pain: No Skin Integrity Unable to Visualize Vitals - EU Blood Pressure 160/76 Pulse 81 bpm Respirations 16 br/min SPO2 97 % Additional JUDAH PARIS Reviewed Yes Specimens Collected Last Modified By: CHARITY De Leon RN, Ruthann 07/05/23 15:50:59 Finalized By: CHARITY De Leon RN, Ruthann Document Signatures Signed By: CHARITY De Leon RN, Ruthann 07/05/23 15:51 CHARITY De Leon RN, Ruthann 07/05/23 15:53 Normal [facility] Operative Reporton Operative Report Patient: KATHRYN GIORDANO Age: 68 years Sex: Female : 1955 Associated Diagnoses: None Author: Freddy KRAUS MD Procedure Operative Information Details: Date/ Time: 07/05/2023 16:15:00. Pre-Op Dx: Personal history of bladder cancer ([id number] Z85.51, Working, Medical). Post-Op Dx: Same. Anesthesia Type: Local. Procedure: Local Cystoscopy. Complications: None. Risks/Benefits/Info rmed Consent: Surgical risks, benefits, details of the procedure have been explained to the patient, Full informed consent has been obtained. Intraoperative Information Prepped: Patient is brought back to the endoscopy suite, Patient is placed in modified dorso/lithotomy position, Patient prepped in the usual fashion with Betadine solution, 2% Xylocaine Jelly is placed per Urethra, After waiting several minutes the Cystoscope is introduced. The Urethra is: Normal. The Bladder is: Normal, Trabeculated Mild (1), No tumors, no stones. Old scar noted.. The ureteral orifices: Show efflux of clear urine. Specimens Removed: Voided specimen sent for FISH and Cytology test. Devices Implanted: None. Removal: Cystoscope is removed, The patient tolerated it well. Postoperative Information Discharge: Patient is discharged home with antibiotic coverage, Follow up arranged, Repeat cystoscopy in 1 year provided the FISH test and cytology are negative.. Normal [facility] Comment on above: Result Comment: Elec tronically Signed By: Freddy KRAUS MD\.br\Date and Time Signed: 07/05/23 16:16 EST Outpatient Surgery Discharge Instructionon 07-05-2023 Outpatient Surgery Discharge Instruction [place] [id number] Patient Discharge Instructions PERSON INFORMATION Name: KATHRYN GIORDANO Date of : 1955 Current Date: 07/05/2023 16:15:08 PHYSICIANS Admitting Physician: Freddy KRAUS MD Comment: Discharge Diagnosis: KATHRYN GIORDANO has been given the following list of follow-up instructions, prescriptions, and patient education materials: IF UNABLE TO CONTACT YOUR PHYSICIAN AND YOU FEEL IT IS AN EMERGENCY, GO TO THE NEAREST EMERGENCY ROOM OR CALL 911 Follow up: With: Address: When: Freddy ROSA, [address], [facility] [address] [place] [address] Business (1) Comments: As we discussed, your bladder looks good. Evidence of prior scars. The plan will be for a repeat scope in about 1 year provided the FISH test is negative. Please finish your antibiotic. Have a great day. Comment: PATIENT EDUCATION INFORMATION Instructions: Cystoscopy ? Voiding after the procedure: there may be some pain, burning, urgency, frequency and blood tinged urine following the procedure. These symptoms usually resolve within 2-5 days. Drink the amount of fluid it takes to keep the urine pink to yellow or clear in color. Drinking enough water and fluids will help to ease any discomfort after your procedure. ? If you are having problems that seem out of the ordinary, please call. ? If unable to contact your physician and you feel it is an emergency, go to the nearest emergency room or call 911 ? Diet ? you may resume your normal diet. ? Activity ? you may resume your normal activities ? Call if you have a fever over 100 degrees. IDELVIN KAREN A, have received the attached patient education materials/instructi ons and have verbalized understanding: May we do a follow up call? Yes No I was present when discharge instructions were given _ Patient Signature Date Clinican/Nurse Signature Date You may receive a survey from Margarita Young asking you to rate your care experience. Your feedback is important and will help us understand what we do well and how we can improve the quality of care we provide to you, your loved ones and our community. It?s an honor to serve you. Thank you for choosing [facility] Normal [facility] UroVysion Fish and Urine Cyt o ([facility])on 07-05-2023 [facility] Method of Extraction Voided Normal [facility] Comment on above: Performed By: #### 1 [id number] #### [facility] [address] [facility] [place] [address] [facility] Number of Jars 1 Invalid Interpretation Code [facility] Comment on above: Performed By: #### 1 [id number] #### [facility] [address] [place] [address] [facility] Specimen Urine Normal [facility] Comment on above: Performed By: #### 1 [id number] #### [facility] [address] [facility] [place] [address] [facility] Type of Service Technical Only Normal [facility] Comment on above: Performed By: #### 1 [id number] #### [facility] [address] [facility] [place] [address] AMYLASEon 07-08-2022 Amylase [Catalytic activity/Vol] 32 U/L Normal 25-115 [facility] Comment on above: Performed By: #### A MY, CMP, LIPA #### [facility] [address] [place] [address] [address] Navi Day CBC AUTO DIFFon 07-08-2022 BASO # 0.0 103/ul Normal 0.0-0.1 [facility] Comment on above: Performed By: #### C BC #### [facility] [address] [place] [address] [address] Navi Day Basophils/100 WBC (Bld) 0.3 % Normal 0.2-2.0 [facility] Comment on above: Performed By: #### C BC #### [facility] [address] [place] [address] [address] Navi Day EO # 0.0 103/ul Normal 0.0-0.7 [facility] Comment on above: Performed By: #### C BC #### [facility] [address] [place] [address] [address] Navi Day Eosinophils/100 WBC (Bld) 0.6 % Critically low 0.9-7.0 [facility] Comment on above: Performed By: #### C BC #### [facility] [address] [place] [address] Dr. Navi Day Erythrocyte distribution width (RBC) [Ratio] 12.7 % Normal 11.0-15.0 [facility] Comment on above: Performed By: #### C BC #### [facility] [address] [place] [address] Dr. Navi Day Hematocrit (Bld) [Volume fraction] 42.2 % Normal 36.0-48.0 [facility] Comment on above: Performed By: #### C BC #### [facility] [address] [place] [address] Dr. Navi Day Hemoglobin (Bld) [Mass/Vol] 14.2 g/dL Normal 12.0-16.0 [facility] Comment on above: Performed By: #### C BC #### [facility] [address] [place] [address] Dr. Navi Day IG # 0.03 10e3/ul Normal 0.00-0.03 [facility] Comment on above: Performed By: #### C BC #### [facility] [address] [place] [address] Dr. Navi Day IG % 0.5 % Normal 0.0-0.5 [facility] Comment on above: Performed By: #### C BC #### [facility] [address] [place] [address] [address] Navi Day LYMPH # 0.8 103/ul Critically low 1.2-3.8 [facility] Comment on above: Performed By: #### C BC #### [facility] [address] [place] [address] Dr. Navi Day Lymphocytes/100 WBC (Bld) 12.6 % Critically low 20.5-60.0 [facility] Comment on above: Performed By: #### C BC #### [facility] [address] [place] [address] Dr. Navi Day MANUAL DIFF REQ NO Normal [facility] Comment on above: Performed By: #### C BC #### [facility] [address] [place] [address] Dr. Navi Day MCH (RBC) [Entitic mass] 27.8 pg Normal 26.7-34.0 [facility] Comment on above: Performed By: #### C BC #### [facility] [address] [place] [address] Dr. Navi Day MCHC (RBC) [Mass/Vol] 33.6 g/dL Normal 29.9-35.2 [facility] Comment on above: Performed By: #### C BC #### [facility] [address] [place] [address] Dr. Navi Day MCV (RBC) [Entitic vol] 82.6 fL Normal 81.0-99.0 [facility] Comment on above: Performed By: #### C BC #### [facility] [address] [place] [address] Dr. Navi Day MONO # 0.5 103/ul Normal 0.3-0.8 [facility] Comment on above: Performed By: #### C BC #### [facility] [address] [place] [address] Dr. Navi Day Monocytes/100 WBC (Bld) 7.6 % Normal 1.7-12.0 [facility] Comment on above: Performed By: #### C BC #### [facility] [address] [place] [address] Dr. Navi Day NEUT # 5.0 103/ul Normal 1.4-6.5 [facility] Comment on above: Performed By: #### C BC #### [facility] [address] [place] [address] Dr. Navi Day Neutrophils/100 WBC (Bld) 78.4 % Critically high 43.0-75.0 [facility] Comment on above: Performed By: #### C BC #### [facility] [address] [place] [address] Dr. Navi Day Platelet mean volume (Bld) [Entitic vol] 10.2 fL Normal 9.5-13.5 [facility] Comment on above: Performed By: #### C BC #### [facility] [address] [place] [address] Dr. Navi Day PLT 243 103/ul Normal 150-450 [facility] Comment on above: Performed By: #### C BC #### [facility] [address] [place] [address] Dr. Navi Day RBC 5.11 106/ul Normal 4.20-5.40 [facility] Comment on above: Performed By: #### C BC #### [facility] [address] [place] [address] Dr. Navi Day WBC 6.4 103/ul Normal 4.0-11.0 [facility] Comment on above: Performed By: #### C BC #### [facility] [address] [place] [address] ABD/PELV W CONon 07-08-[address] ABD/PELV W CON CT SCAN OF THE ABDOMEN AND PELVIS WITH CONTRAST, 07/08/2022 5:19 PM EST COMPARISON: CT scan of the abdomen and pelvis, 04/06/2011 Had diarrhea for one day with right abdominal pain CLINICAL HISTORY: NAUSEA WITH VOMITING, UNSPECIFIED TECHNIQUE: 3 mm axial images performed through the abdomen and pelvis following administration of 100 mL of intravenous Omnipaque 300. 3 mm coronal and sagittal MPR reconstruction performed through the abdomen and pelvis. Dose reduction techniques were achieved by using automated exposure control and/or adjustment of mA and/or kV according to patient size and/or use of iterative reconstruction technique. ABDOMINAL CT SCAN FINDINGS: Lung bases are clear. Visualized heart is normal in size. Calcified splenic granulomas. Small cyst in the anterior cortex of the left inferior renal pole. Very mild age-related pancreatic atrophy. Remaining solid organs unremarkable. Prior cholecystectomy. No significant intra-axial hepatic biliary ductal dilatation. Some nonenlarged mesenteric lymph nodes with some slight fatty infiltration of the mesenteric root redemonstrated. Pelvic CT findings: The uterus and urinary bladder have a normal appearance. No bowel obstruction. Appendix is normal. No free fluid. No acute osseous abnormality. IMPRESSION: 1. No acute abnormality of the abdomen and pelvis identified. 2. Small cyst in the left inferior renal pole. 3. Prior cholecystectomy. 4. 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 5. No bowel obstruction. Appendix is normal. Electronically authenticated by: Lisandra CAMERON Date: 2022-07-08 21:04 Normal [facility] ER URINE PROFILEon 3 Bilirubin Ql (U) Negative Normal NEGATIVE [facility] Comment on above: Performed By: #### E RUR #### [facility] [address] [place] [address] Dr. Navi Day Clarity (U) CLEAR Normal CLEAR [facility] Comment on above: Performed By: #### E RUR #### [facility] [address] [place] [address] Dr. Navi Day Color (U) YELLOW Normal YELLOW [facility] Comment on above: Performed By: #### E RUR #### [facility] [address] [place] [address] Dr. Navi Day ERUAHD A micrscopic examination will be performed if indicated. Normal [facility] Comment on above: Performed By: #### E RUR #### [facility] [address] [place] [address] Dr. Navi Day Glucose Ql (U) Negative Normal NEGATIVE [facility] Comment on above: Performed By: #### E RUR #### [facility] [address] [place] [address] Dr. Navi Day Hemoglobin Ql (U) Negative Normal NEGATIVE [facility] Comment on above: Performed By: #### E RUR #### [facility] [address] [place] [address] Dr. Navi Day Ketones Ql (U) 15 mg/dl Abnormal NEGATIVE [facility] Comment on above: Performed By: #### E RUR #### [facility] [address] [place] [address] Dr. Navi Day LEUKOCYTES TRACE Abnormal NEGATIVE [facility] Comment on above: Performed By: #### E RUR #### [facility] [address] [place] [address] Dr. Navi Day Nitrite Ql (U) Negative Normal NEGATIVE [facility] Comment on above: Performed By: #### E RUR #### [facility] [address] [place] [address] Dr. Navi Day pH (U) 6.0 [pH] Normal 5-9 [facility] Comment on above: Performed By: #### E RUR #### [facility] [address] [place] [address] Dr. Navi Day SPEC GRAVITY 1.010 Normal 1.005-<=1.[address] [facility] Comment on above: Performed By: #### E RUR #### [facility] [address] [place] [address] Dr. Navi Day UA PROTEIN Negative Normal NEGATIVE/ TRACE [facility] Comment on above: Performed By: #### E RUR #### [facility] [address] [place] [address] Dr. Navi Day UR MICRO IND NOT INDICATED Normal [facility] Comment on above: Performed By: #### E RUR #### [facility] [address] [place] [address] Dr. Navi Day Urobilinogen Qn (U) 0.2 {Claire'U}/dL Normal 0.2 - 1. 0 [facility] Comment on above: Performed By: #### E RUR #### [facility] [address] [place], [place] [id number] Dr. Navi Day LIPASEon 07-08-2022 Lipase [Catalytic activity/Vol] 105.0 U/L Normal 73.0-393.0 [facility] Comment on above: Performed By: #### A MY, CMP, LIPA #### [facility] [address] [place] [address] Dr. Navi Day PROF 14(COMP METB)on 023 Albumin [Mass/Vol] 3.1 g/dL Critically low 3.4-5.0 [facility] Comment on above: Performed By: #### A MY, CMP, LIPA #### [facility] [address] [place] [address] Dr. Navi Day Albumin/Globulin [Mass ratio] 0.8 {ratio} Normal [facility] Comment on above: Performed By: #### A MY, CMP, LIPA #### [facility] [address] [place] [address] Dr. Navi Day ALP [Catalytic activity/Vol] 58 U/L Normal 46-116 [facility] Comment on above: Performed By: #### A MY, CMP, LIPA #### [facility] [address] [place] [address] Dr. Navi Day ALT [Catalytic activity/Vol] 22 U/L Normal 14-59 [facility] Comment on above: Performed By: #### A MY, CMP, LIPA #### [facility] [address] [place] [address] Dr. Navi Day Anion gap [Moles/Vol] 12.5 mmol/L Normal [facility] Comment on above: Performed By: #### A MY, CMP, LIPA #### [facility] [address] [place] [address] Dr. Navi Day AST [Catalytic activity/Vol] 23 U/L Normal 15-37 [facility] Comment on above: Performed By: #### A MY, CMP, LIPA #### [facility] [address] [place] [address] Dr. Navi Day Bilirubin [Mass/Vol] 0.5 mg/dL Normal 0.2-1.0 [facility] Comment on above: Performed By: #### A MY, CMP, LIPA #### [facility] [address] [place] [address] Dr. Navi Day Calcium [Mass/Vol] 9.0 mg/dL Normal 8.5-10.1 [facility] Comment on above: Performed By: #### A MY, CMP, LIPA #### [facility] [address] [place] [address] Dr. Navi Day Chloride [Moles/Vol] 100 mmol/L Normal 98-107 [facility] Comment on above: Performed By: #### A MY, CMP, LIPA #### [facility] [address] [place] [address] Dr. Navi Day CO2 [Moles/Vol] 27.0 mmol/L Normal 21.0-32.0 [facility] Comment on above: Performed By: #### A MY, CMP, LIPA #### [facility] [address] [place] [address] Dr. Navi Day Creatinine [Mass/Vol] 0.79 mg/dL Normal 0.55-1.02 [facility] Comment on above: Performed By: #### A MY, CMP, LIPA #### [facility] [address] [place] [address] Dr. Navi Day EGFR-AF HAITIAN >60 Normal >=60 [facility] Comment on above: Performed By: #### A MY, CMP, LIPA #### [facility] [address] [place] [address] Dr. Navi Day EGFR-NON AF HAITIAN >60 Normal >=60 [facility] Comment on above: Performed By: #### A MY, CMP, LIPA #### [facility] [address] [place] [address] Dr. Navi Day Globulin (S) [Mass/Vol] 3.8 g/dL Normal [facility] Comment on above: Performed By: #### A MY, CMP, LIPA #### [facility] [address] [place] [address] Dr. Navi Day Glucose [Mass/Vol] 168 mg/dL Critically high 74-106 [facility] [facility] Comment on above: Performed By: #### A MY CMP, LIPA #### [facility] [address] [address] [address] Navi Day Potassium [Moles/Vol] 3.5 mmol/L Normal 3.5-5.1 [facility] Comment on above: Performed By: #### A MY, CMP, LIPA #### [facility] [address] [address] [address] Navi Day Protein [Mass/Vol] 6.9 g/dL Normal 6.4-8.[address] [facility] Comment on above: Performed By: #### A MY, CMP, LIPA #### [facility] [address] [place] [address] Dr. Navi Day Sodium [Moles/Vol] 136 mmol/L Normal 136-[address] [facility] Comment on above: Performed By: #### A MY, CMP, LIPA #### [facility] [address] [address] [address] Navi Day Urea nitrogen [Mass/Vol] 19.0 mg/dL Critically high 7.0-18.0 [facility] Comment on above: Performed By: #### A MY, CMP, LIPA #### [facility] [address] [place] [address] Dr. Navi Day Urea nitrogen/Creatinine [Mass ratio] 24.1 mg/mg Normal [facility] Comment on above: Performed By: #### A MY, CMP, LIPA #### [facility] [address] [place] [address] Dr. Navi Day [facility] DIGITAL SCREEN [facility] 05-19-2022 BI-RADS 1 - Negative, no evidence of malignancy. Normal interval followup in 12 months. OVERALL ASSESSMENT- NEGATIVE A letter of notification will be sent to the patient regarding the results. [facility] RIS CONSOLIDATED HISTORY: Screening. Family history of breast carcinoma. TECHNIQUE: Bilateral digital screening mammogram with CAD. 2-D and 3-D tomography. FINDINGS: Two views of each breast show scattered areas of fibroglandular density. No change from prior studies most recent 04/03/2020. Suspicious calcifications: None. Suspicious mass: None. (If skin markers were applied, circles represent skin lesions and linear markers represent scars.) [facility] RIS CONSOLIDATED Radiology Study observation (narrative) SHIRLEY [employer] Work Phone: [employer] DIGITAL SCREEN BILA TERALOrdered By: Mehul Doyle on 05-19-2022 SHIRLEY [employer] Phone: COVID/FLU/RSV RT-PCRon 05-05 SARS-CoV-2 (COVID-19) RNA JULIA+probe Ql (Unsp spec) Positive [facility] Other COVID/FLU/RSV RT-PCR Negative [facility] Other COVID Quick Testingon 2021 Result Negative [facility] Other Quick Fluon 09-28-2021 FLUAV Ab CF (S) [Titer] Negative [facility] Other FLUBV Ab CF (S) [Titer] Negative [facility] Other XR chest 2V*on 09-28-2021 XR chest 2V* [facility] Other XR chest 2V* [facility] [place] [facility] Other XR chest 2V* [address] [place] [address] [facility] Other XR chest 2V* [place] [address] [facility] [employer] Other XR chest 2V* XRay Report [facility] Other XR chest 2V* Signed [facility] Other XR chest 2V* Patient: Kathryn Giordano MR#: [id number] [facility] Other XR chest 2V* [address] [facility] Other XR chest 2V* : 1955 Acct:[id number] [facility] Other XR chest 2V* Age/Sex: 66 / F ADM Date: 09/28/21 [facility] Other XR chest 2V* Loc: XDUCLY Room: Type: [facility] Other XR chest 2V* Attending Dr: Anais Farley APRN [facility] Other XR chest 2V* Ordering Provider: Anais Farley APRN [facility] Other XR chest 2V* Date of Service: 09/28/21 [facility] Other XR chest 2V* XR/XR chest 2V*: COUGH [facility] Other XR chest 2V* Copies to: Anais Farley APRN [facility] Other XR chest 2V* Plain film chest2 view [facility] Other XR chest 2V* HISTORY:Productive cough. [facility] Other XR chest 2V* COMPARISON:None [employer] Other XR chest 2V* FINDINGS: The cardiac, mediastinal and hilar silhouettes are within normal limits. No acute lung [facility] Other XR chest 2V* process, pleural effusion or pneumothorax identified. Bony structures are intact. [facility] Other XR chest 2V* XR/XR chest 2V* [facility] Other XR chest 2V* IMPRESSION: No acute process. [facility] Other XR chest 2V* Impression dictated by: Sae Stafford M.D.09/28/2021 11:55 AM [facility] Other XR chest 2V* Dictation Location: RADIO-PC-03 [facility] Other XR chest 2V* Transcribed By: LEE 09/28/21 115 [facility] Other XR chest 2V* Dictated By: Sae Stafford DO 09/28/21 1154 [employer] Other XR chest 2V* Signed By: [facility] Other XR chest 2V* 09/28/21 115 [facility] [employer] Other XR chest 2V* [facility] [place] [address] [place] [address] XRay Report Signed Patient: Kathryn Giordano MR#: [id number] : 1955 Acct:[id number] Age/Sex: 66 / F ADM Date: 09/28/21 Loc: XDUC Room: Type: [facility] Attending Dr: Anais Farley APRN Ordering Provider: Anais Farley APRN Date of Service: 09/28/21 XR/XR chest 2V*: COUGH Copies to: Anais Farley APRN Plain film chest2 view HISTORY:Productive cough. COMPARISON:None FINDINGS: The cardiac, mediastinal and hilar silhouettes are within normal limits. No acute lung process, pleural effusion or pneumothorax identified. Bony structures are intact. XR/XR chest 2V* IMPRESSION: No acute process. Impression dictated by: Sae Stafford M.D.09/28/2021 11:55 AM Dictation Location: RADIO-PC-03 Transcribed By: LEE 09/28/21 1155 Dictated By: Sae Stafford DO 09/28/21 115 Signed By: 09/28/21 [facility] LIPID PROFILEon 09-27-2021 CHOL-HDL RATIO NORM SEE BELOW Normal [facility] Comment on above: Result Comment: 3.3 - 4.4 LOW RISK 4.4 - 7.1 AVERAGE RISK 7.1 - 11.0 MODERATE RISK >11.0 HIGH RISK Performed By: #### L IPID, CMP #### [facility] [address] [address] [address] Navi Day Cholesterol [Mass/Vol] 203 mg/dL Critically high <=200 [facility] Comment on above: Performed By: #### L IPID, CMP #### [facility] [address] [address] [address] Navi Day Cholesterol in HDL [Mass/Vol] 72 mg/dL Critically high 40-60 [facility] Comment on above: Performed By: #### L IPID, CMP #### [facility] [address] [address] [address] Navi Day Cholesterol in LDL [Mass/Vol] 109.6 mg/dL Normal [facility] Comment on above: Performed By: #### L IPID, CMP #### [facility] [address] [place] [address] Dr. Navi Day Cholesterol.total/Ch olesterol in HDL [Mass ratio] 2.8 {ratio} Normal [facility] Comment on above: Performed By: #### L IPID, CMP #### [facility] [address] [place] [address] Dr. Navi Day HDL NORMAL > or = 60 mg/dl - LOW CARDIOVASCULAR RISK <40 mg/dl - HIGH CARDIOVASCULAR RISK Normal [facility] Comment on above: Performed By: #### L IPID, CMP #### [facility] [address] [address] [address] Navi Day LDL CALC NORMAL SEE BELOW Normal [facility] Comment on above: Result Comment: <100 mg/dl OPTIMAL 100 - 129 mg/dl NEAR OR ABOVE OPTIMAL 130 - 159 mg/dl BORDERLINE HIGH 160 - 189 mg/dl HIGH >190 mg/dl VERY HIGH Performed By: #### L IPID, CMP #### [facility] [address] [address] [address] Navi Day Triglyceride [Mass/Vol] 107 mg/dL Normal <=150 [facility] Comment on above: Performed By: #### L IPID, CMP #### [facility] [address] [address] [address] Navi Day VLDL CALC 21.4 mg/dL Normal [facility] Comment on above: Performed By: #### L IPID, CMP #### [facility] [address] [address] [address] Navi Day PROF 14(COMP METB)on 022 Albumin [Mass/Vol] 3.6 g/dL Normal 3.4-5.0 [facility] Comment on above: Performed By: #### L IPID, CMP #### [facility] [address] [address] [address] Navi Day Albumin/Globulin [Mass ratio] 0.8 {ratio} Normal [facility] Comment on above: Performed By: #### L IPID, CMP #### [facility] [address] [place] [address] Dr. Navi Day ALP [Catalytic activity/Vol] 52 U/L Normal 46-116 [facility] Comment on above: Performed By: #### L IPID, CMP #### [facility] [address] [place] [address] Dr. Navi Day ALT [Catalytic activity/Vol] 34 U/L Normal 14-59 [facility] Comment on above: Performed By: #### L IPID, CMP #### [facility] [address] [place] [address] Dr. Navi Day Anion gap [Moles/Vol] 15.7 mmol/L Normal [facility] Comment on above: Performed By: #### L IPID, CMP #### [facility] [address] [address] [address] Navi Day AST [Catalytic activity/Vol] 19 U/L Normal 15-37 [facility] Comment on above: Performed By: #### L IPID, CMP #### [facility] [address] [address] [address] Navi Day Bilirubin [Mass/Vol] 0.4 mg/dL Normal 0.2-1.0 [facility] Comment on above: Performed By: #### L IPID, CMP #### [facility] [address] [address] [address] Navi Day Calcium [Mass/Vol] 9.3 mg/dL Normal 8.5-10.1 [facility] Comment on above: Performed By: #### L IPID, CMP #### [facility] [address] [place] [address] Dr. Navi Day Chloride [Moles/Vol] 100 mmol/L Normal 98-107 [facility] Comment on above: Performed By: #### L IPID, CMP #### [facility] [address] [place] [address] Dr. Navi Day CO2 [Moles/Vol] 28.4 mmol/L Normal 21.0-32.0 [facility] Comment on above: Performed By: #### L IPID, CMP #### [facility] [address] [place] [address] Dr. Navi Day Creatinine [Mass/Vol] 0.84 mg/dL Normal 0.55-1.02 [facility] Comment on above: Performed By: #### L IPID, CMP #### [facility] [address] [place] [address] Dr. Navi Day EGFR-AF HAITIAN >60 Normal >=60 [facility] Comment on above: Performed By: #### L IPID, CMP #### [facility] [address] [place] [address] Dr. Navi Day EGFR-NON AF HAITIAN >60 Normal >=60 [facility] Comment on above: Performed By: #### L IPID, CMP #### [facility] [address] [place] [address] Dr. Navi Day Globulin (S) [Mass/Vol] 4.1 g/dL Normal [facility] Comment on above: Performed By: #### L IPID, CMP #### [facility] [address] [place] [address] Dr. Navi Day Glucose [Mass/Vol] 198 mg/dL Critically high 74-106 [facility] Comment on above: Performed By: #### L IPID, CMP #### [facility] [address] [address] [address] Navi Day Potassium [Moles/Vol] 4.1 mmol/L Normal 3.5-5.1 [facility] Comment on above: Performed By: #### L IPID, CMP #### [facility] [address] [address] [address] Navi Day Protein [Mass/Vol] 7.7 g/dL Normal 6.1-8.[address] [facility] Comment on above: Performed By: #### L IPID, CMP #### [facility] [address] [address] [address] Navi Day Sodium [Moles/Vol] 140 mmol/L Normal 136-[address] [facility] Comment on above: Performed By: #### L IPID, CMP #### [facility] [address] [place] [address] Dr. Navi Day Urea nitrogen [Mass/Vol] 19.0 mg/dL Critically high 7.0-18.0 [facility] Comment on above: Performed By: #### L IPID, CMP #### [facility] [address] [address] [address] Navi Day Urea nitrogen/Creatinine [Mass ratio] 22.6 mg/mg Normal [facility] Comment on above: Performed By: #### L IPID, CMP #### [facility] [address] [place] [address] Dr. Navi Day COVID Quick Testingon 2021 Result Negative [facility] Other Quick Fluon 09-06-2021 FLUAV Ab CF (S) [Titer] Negative [facility] Other FLUBV Ab CF (S) [Titer] Negative [facility] Other [employer] DIGITAL SCREEN BILA TERALon 04-04-2020 BI-RADS 1 - Negative, no evidence of malignancy. Normal interval followup in 12 months. OVERALL ASSESSMENT- NEGATIVE A letter of notification will be sent to the patient regarding the results. [place] HISTORY: Screening. Family history breast carcinoma. Prior negative left cyst aspiration and biopsy. TECHNIQUE: Bilateral digital screening mammogram with CAD, 2-D and 3-D tomography. FINDINGS: Two views of each breast show scattered areas of fibroglandular density. No change from 02/15/2019, 01/05/2018. Suspicious calcifications: None. Suspicious mass: None. Benign calcifications: None. (If skin markers were applied, circles represent skin lesions and linear markers represent scars.) [place], [place] Alan, [place] Incoming Radiant Results From [facility] - 04/04/2020 10:31 AM EST HISTORY: Screening. Family history breast carcinoma. Prior negative left cyst aspiration and biopsy. TECHNIQUE: Bilateral digital screening mammogram with CAD, 2-D and 3-D tomography. FINDINGS: Two views of each breast show scattered areas of fibroglandular density. No change from 02/15/2019, 01/05/2018. Suspicious calcifications: None. Suspicious mass: None. Benign calcifications: None. (If skin markers were applied, circles represent skin lesions and linear markers represent scars.) IMPRESSION: BI-RADS 1 - Negative, no evidence of malignancy. Normal interval followup in 12 months. OVERALL ASSESSMENT- NEGATIVE A letter of notification will be sent to the patient regarding the results. [place] Albuminon 11-02-2019 Albumin [Mass/Vol] 4.5 g/dL 3.5 - 5.2 g/dL [place] Calciumon 11-02-2019 Calcium [Mass/Vol] 10.2 mg/dL 8.6 - 10. 4 mg/dL [place] Comprehensive Metabolic Pane bettie 10-10-2019 Albumin [Mass/Vol] 4.5 g/dL 3.5 - 5.2 g/dL [place] Albumin/Globulin [Mass ratio] NOT REPORTED [place] ALP [Catalytic activity/Vol] 67 U/L 35 - 104 U/L [place] ALT [Catalytic activity/Vol] 23 U/L 5 - 33 U/L [place] Anion gap [Moles/Vol] 7 mmol/L Low 9 - 17 mmol/L [place] AST [Catalytic activity/Vol] 25 U/L <32 [place] Bilirubin Ql (U) 0.49 mg/dL 0.3 - 1.2 mg/dL [place] Bun/Cre Ratio 16 [place] Calcium [Mass/Vol] 11.2 mg/dL High 8.6 - 10. 4 mg/dL [place] Chloride [Moles/Vol] 97 mmol/L Low 98 - 10 7 mmol/L [place] CO2 [Moles/Vol] 30 mmol/L 20 - 31 mmol/L [place] Creatinine [Mass/Vol] 0.74 mg/dL 0.5 - 0.9 mg/dL [place] GFR >60 >60 mL/min [place], [place] GFR Non- >60 >60 mL/min [place] GFR/1.73 sq M predicted among non-blacks MDRD (S/P/Bld) [Vol rate/Area] NOT REPORTED [place] GFR/1.73 sq M predicted among non-blacks MDRD (S/P/Bld) [Vol rate/Area] [place] Comment on above: Average GFR for 60-6 9 years old: 85 mL/min/1.73sq m Chronic Kidney Disease: <60 mL/min/1.73sq m Kidney failure: <15 mL/min/1.73sq m eGFR calculated using average adult body mass. Additional eGFR calculator available at: http://www.[employer]/multiple_crcl_2011.htm Glucose [Mass/Vol] 196 mg/dL High 70 - 99 mg/dL [place], [place] Interpretation and review of laboratory results Abnormal [place] Potassium [Moles/Vol] 4.1 mmol/L 3.7 - 5.3 mmol/L [place] Protein [Mass/Vol] 8.0 g/dL 6.4 - 8.3 g/dL [place] Sodium [Moles/Vol] 134 mmol/L Low 135 - 144 mmol/L [place] Urea nitrogen [Mass/Vol] 12 mg/dL 8 - 23 mg/dL [place] Lipid Panelon 10-10-2019 Cholesterol [Mass/Vol] 192 mg/dL <200 [place] Comment on above: Cholesterol Guidelines: <200 Desirable 200-240 Borderline >240 Undesirable Cholesterol in HDL [Mass/Vol] 67 mg/dL >40 [place] Comment on above: HDL Guidelines: <40 Undesirable 40-59 Borderline >59 Desirable Cholesterol in LDL [Mass/Vol] 101 mg/dL 0 - 130 mg/dL [place] Comment on above: LDL Guidelines: <100 Desirable 100-129 Near to/above Desirable 130-159 Borderline >159 Undesirable Direct (measured) LDL and calculated LDL are not interchangeable tests. Cholesterol in VLDL [Mass/Vol] NOT REPORTED 1 - 30 mg/dL [place] Cholesterol.total/Ch olesterol in HDL [Mass ratio] 2.9 {ratio} <5 [place] Triglyceride [Mass/Vol] 122 mg/dL <150 [place] Comment on above: Triglyceride Guidelines: <150 Desirable 150-199 Borderline 200-499 High >499 Very high Based on AHA Guidelines for fasting triglyceride, February 2012. Patient Fasting?on 0 Patient Fasting? yes [place], [place] CBC Auto Differentialon 02-28 Basophils (Bld) [#/Vol] 0.00 10*3/uL [place] Basophils/100 WBC (Bld) 0 % 0 - 2 % [place] Differential Type YES [facility] [place] Eosinophils (Bld) [#/Vol] 0.30 10*3/uL [place] Eosinophils/100 WBC (Bld) 3 % 0 - 5 % [place] Erythrocyte distribution width (RBC) [Ratio] 13.7 % 12.1 - 15.2 % [place] Hematocrit (Bld) [Volume fraction] 40.1 % 36 - 46 % [place] Hemoglobin (Bld) [Mass/Vol] 13.3 g/dL 12 - 16 g/dL [place] Lymphocytes (Bld) [#/Vol] 2.00 10*3/uL [place] Lymphocytes/100 WBC (Bld) 22 % 15 - 40 % [place] MCH (RBC) [Entitic mass] 27.9 pg 26 - 34 pg [place] MCHC (RBC) [Mass/Vol] 33.2 g/dL 31 - 37 g/dL [place] MCV (RBC) [Entitic vol] 83.9 fL 80 - 100 fL [place] Monocytes (Bld) [#/Vol] 0.70 10*3/uL [place] Monocytes/100 WBC (Bld) 8 % 4 - 8 % [place] Platelet mean volume (Bld) [Entitic vol] NOT REPORTED 6 - 12 fL [place], [place] Platelets (Bld) [#/Vol] NOT REPORTED [place] Platelets (Bld) [#/Vol] 255 10*3/uL [place] RBC (Bld) [#/Vol] 4.78 10*6/uL 4 - 5.2 m/uL [place], [place] RBC morphology finding Nom (Bld) NOT REPORTED [place] Segmented neutrophils/100 WBC (Bld) 67 % 47 - 75 % [place] Segs Absolute 6.00 [place] WBC (Bld) [#/Vol] NOT REPORTED per 100 WBC [place] WBC (Bld) [#/Vol] 9.0 10*3/uL [place] WBC Morphology NOT REPORTED [place] Otheron 03-14-2019 Immature granulocytes (Bld) [#/Vol] NOT REPORTED [facility] DIGITAL SCREEN W OR WO C AD BILATERALon 02-16-2019 Benign bilateral mammography. BI-RADS 2 - Benign, no evidence of malignancy. Normal interval followup is recommended in 12 months. OVERALL ASSESSMENT- BENIGN A letter of notification will be sent to the patient regarding the results. [place] EXAM: [facility] DIGITAL SCREEN W OR WO CAD BILATERAL HISTORY: Reason for exam:->screening. COMPARISON: 01/05/2018, 10/14/2016, 10/09/2015. TECHNIQUE: 2D views FINDINGS: Breasts are of scattered fibroglandular composition. Minimal postsurgical scarring is seen in the upper-outer left breast, and this is stable. No developing masses, microcalcifications , or enlarged lymph nodes. [facility], [facility] Incoming Radiant Results From [facility] [place] - 02/16/2019 10:14 AM EDT EXAM: [facility] DIGITAL SCREEN W OR WO CAD BILATERAL HISTORY: Reason for exam:->screening. COMPARISON: 01/05/2018, 10/14/2016, 10/09/2015. TECHNIQUE: 2D views FINDINGS: Breasts are of scattered fibroglandular composition. Minimal postsurgical scarring is seen in the upper-outer left breast, and this is stable. No developing masses, microcalcifications , or enlarged lymph nodes. IMPRESSION: Benign bilateral mammography. BI-RADS 2 - Benign, no evidence of malignancy. Normal interval followup is recommended in 12 months. OVERALL ASSESSMENT- BENIGN A letter of notification will be sent to the patient regarding the results. [facility] Vital Sign[facility] Date Time Vital Sign Value Performing Clinician Facility 06-02-2024 09:00-0500 Diastolic blood pressure 65 mm[Hg] [facility] 06-02-2024 09:00-0500 Heart rate 68 /min [email or web address] [place] 06-02-2024 09:00-0500 Respiratory rate 21 /min Carlos Horowitz MD Work Phone: [facility] [place] 06-02-2024 09:00-0500 Systolic blood pressure 146 mm[Hg] [facility] [place] 06-02-2024 08:00-0500 SaO2% (BldA) [Mass fraction] 90 % Carlos [facility]owitz [facility] [place] 06-02-2024 07:38-0500 Body temperature 97.59 [degF] Carlos Horowitz [email or web address] [place] 06-02-2024 06:39-0500 Body height 162.6 cm Carlos Horowitz MD Work Phone: [facility] 06-02-2024 06:39-0500 Body mass index (BMI) [Ratio] 39.99 kg/m2 Carlos Horowitz MD Work Phone: [facility] [place] 06-02-2024 06:39-0500 Body weight 105.69 kg Carlos Horwoitz MD Work Phone: [facility] 04-11-2024 10:20-0500 Body height 165.1 cm Neftaly Buchanancek DO Work Phone: [facility] 04-11-2024 10:20-0500 Body mass index (BMI) [Ratio] 39.94 kg/m2 Neftaly Chanelcek DO Work Phone: [facility] 04-11-2024 10:20-0500 Body weight 108.86 kg Neftaly Buchanancek DO Work Phone: [facility] 03-20-2024 15:26-0400 Body height 165.1 cm Neftaly Buchanancek DO Work Phone: [facility] 03-20-2024 15:26-0400 Body mass index (BMI) [Ratio] 39.94 kg/m2 Neftaly Chanelcek DO Work Phone: [facility] 03-20-2024 15:26-0400 Body weight 108.86 kg Neftaly Buchanancek DO Work Phone: [facility] 03-09-2024 10:58-0400 Body height 165.1 cm [facility] 03-09-2024 10:58-0400 Body mass index (BMI) [Ratio] 38.2 kg/m2 [facility] 03-09-2024 10:58-0400 Body temperature 98.1 [degF] [facility] 03-09-2024 10:58-0400 Body weight 104.32 kg [facility] 03-09-2024 10:58-0400 Diastolic blood pressure 85 mm[Hg] [facility] 03-09-2024 10:58-0400 Heart rate 92 /min [facility] 03-09-2024 10:58-0400 Respiratory rate 18 /min [facility] 03-09-2024 10:58-0400 SaO2% (BldA) [Mass fraction] 96 % [facility] 03-09-2024 10:58-0400 Systolic blood pressure 161 mm[Hg] [facility] 12-09-2023 11:01-0400 Body height 165.1 cm [facility] 12-09-2023 11:01-0400 Body mass index (BMI) [Ratio] 38.6 kg/m2 [facility] 12-09-2023 11:01-0400 Body temperature 98.2 [degF] [facility] 12-09-2023 11:01-0400 Body weight 105.23 kg [facility] 12-09-2023 11:01-0400 Diastolic blood pressure 70 mm[Hg] [facility] 12-09-2023 11:01-0400 Heart rate 71 /min [facility] 12-09-2023 11:01-0400 Respiratory rate 20 /min [facility] 12-09-2023 11:01-0400 SaO2% (BldA) [Mass fraction] 97 % [facility] 12-09-2023 11:01-0400 Systolic blood pressure 143 mm[Hg] [facility] 09-30-2023 14:31-0400 Body height 165.1 cm [facility] 09-30-2023 14:31-0400 Body mass index (BMI) [Ratio] 39.2 kg/m2 [facility] 09-30-2023 14:31-0400 Body temperature 96.8 [degF] [facility] 09-30-2023 14:31-0400 Body weight 107.04 kg [facility] 09-30-2023 14:31-0400 Diastolic blood pressure 86 mm[Hg] [facility] 09-30-2023 14:31-0400 Heart rate 88 /min [facility] 09-30-2023 14:31-0400 Respiratory rate 20 /min [facility] 09-30-2023 14:31-0400 SaO2% (BldA) [Mass fraction] 97 % [facility] 09-30-2023 14:31-0400 Systolic blood pressure 134 mm[Hg] [facility] 07-13-2023 09:47-0500 Body height 165.1 cm Christopher Bohach DPM Work Phone: [facility] 07-13-2023 09:47-0500 Body mass index (BMI) [Ratio] 39.94 kg/m2 Christopher Bohach DPM Work Phone: [facility] 07-13-2023 09:47-0500 Body weight 108.86 kg Christopher Bohach DPM Work Phone: [facility] 07-13-2023 09:47-0500 Diastolic blood pressure 73 mm[Hg] Christopher Bohach DPM Work Phone: [facility] 07-13-2023 09:47-0500 Heart rate 72 /min Christopher Bohach DPM Work Phone: [facility] 07-13-2023 09:47-0500 Respiratory rate 16 /min Christopher Bohach DPM Work Phone: [facility] 07-13-2023 09:47-0500 Systolic blood pressure 140 mm[Hg] Christopher Bohach DPM Work Phone: [facility] 09-07-2022 10:00-0400 Body height 165.1 cm German Miranda Other [employer] Other 09-07-2022 10:00-0400 Body mass index (BMI) [Ratio] 38.27 kg/m2 German Miranad Other [employer] Other 09-07-2022 10:00-0400 Body temperature 96.9 [degF] German Miranda Other [employer] Other 09-07-2022 10:00-0400 Body weight 104.33 kg German Miranda Other [employer] Other 09-07-2022 10:00-0400 Diastolic blood pressure 82 mm[Hg] German Miranda Other [employer] Other 09-07-2022 10:00-0400 Respiratory rate 20 /min German Miranda Other [employer] Other 09-07-2022 10:00-0400 SaO2% (BldA) [Mass fraction] 97 % German Miranda Other [employer] Other 09-07-2022 10:00-0400 Systolic blood pressure 132 mm[Hg] German Miranda Other [employer] Other 05-05-2022 12:00-0500 Body height 165.1 cm Charline Bakerault Other [employer] Other 05-05-2022 12:00-0500 Body mass index (BMI) [Ratio] 38.27 kg/m2 Charline Cosmo Other [employer] Other 05-05-2022 12:00-0500 Body temperature 98 [degF] Charline Cosmo Other [employer] Other 05-05-2022 12:00-0500 Body weight 104.33 kg Charline Bakerault Other [employer] Other 05-05-2022 12:00-0500 Respiratory rate 18 /min Charline Cosmo Other [employer] Other 05-05-2022 12:00-0500 SaO2% (BldA) [Mass fraction] 97 % Charline Cosmo Other [employer] Other 09-28-2021 12:05-0400 Body height 165.1 cm Anais Farley Other [employer] Other 09-28-2021 12:05-0400 Body mass index (BMI) [Ratio] 36.94 kg/m2 Anais Farley Other [employer] Other 09-28-2021 12:05-0400 Body temperature 98.8 [degF] Anais Farley Other [employer] Other 09-28-2021 12:05-0400 Body weight 100.7 kg Anais Farley Other [employer] Other 09-28-2021 12:05-0400 Respiratory rate 18 /min Anais Farley Other [employer] Other 09-28-2021 12:05-0400 SaO2% (BldA) [Mass fraction] 96 % Anais Farley Other [employer] Other 09-06-2021 11:30-0400 Body height 165.1 cm Charline Cosmo Other [employer] Other 09-06-2021 11:30-0400 Body mass index (BMI) [Ratio] 37.6 kg/m2 Charline Wilburn Other [employer] Other 09-06-2021 11:30-0400 Body temperature 98.8 [degF] Charline Wilburn Other [employer] Other 09-06-2021 11:30-0400 Body weight 102.51 kg Charline Wilburn Other [employer] Other 09-06-2021 11:30-0400 SaO2% (BldA) [Mass fraction] 98 % Charline Wilburn Other [employer] Other 08-12-2021 10:45-0400 Body height 165.1 cm German Jacksonban Other [employer] Other 08-12-2021 10:45-0400 Body mass index (BMI) [Ratio] 37.94 kg/m2 Markal Chaban Other [employer] Other 08-12-2021 10:45-0400 Body temperature 97.2 [degF] Kamal Chaban Other [employer] Other 08-12-2021 10:45-0400 Body weight 103.42 kg Kamal Chaban Other [employer] Other 08-12-2021 10:45-0400 Diastolic blood pressure 84 mm[Hg] Kamal Chaban Other [employer] Other 08-12-2021 10:45-0400 Respiratory rate 20 /min Kamal Chaban Other [employer] Other 08-12-2021 10:45-0400 SaO2% (BldA) [Mass fraction] 100 % Kamal Chaban Other [employer] Other 08-12-2021 10:45-0400 Systolic blood pressure 168 mm[Hg] German Miranda Other [facility] [employer] Other Encounters Encounter Date Encounter Type Care Provider Facility Start: 06-02-2024 End: 06-04-2024 Subsequent hospital visit by physician Carlos Horowitz MD Work Phone: [facility] Non-Invasive Cardiology Comment on above: Sinus bradycardia; Sinus pause Start: 06-02-2024 End: 06-02-2024 Subsequent hospital visit by physician Carlos Horowitz MD Work Phone: [facility] Comment on above: Sinus bradycardia (P rimary Dx); Sinus pause Start: 05-22-2024 End: 05-24-2024 [facility] Start: 05-22-2024 End: 05-24-2024 Subsequent hospital visit by physician Suzanne Douglas MD Work Phone: [facility] Mammography Comment on above: Encounter for screen ing mammogram for malignant neoplasm of breast Start: 05-11-2024 End: 05-11-[address] [facility] Start: 05-11-2024 Encounter for other preprocedural examination [facility] Start: 05-11-2024 End: 05-11-2024 Patient encounter status Suzanne Douglas MD Work Phone: [facility] Start: 05-11-2024 End: 05-11-2024 Subsequent hospital visit by physician Suzanne Douglas MD Work Phone: [facility] Comment on above: Pre-op testing Start: 04-11-2024 End: 04-11-2024 Bamboo flowsheet Neftaly Mcmanus DO Work Phone: [facility] [place] Start: 04-11-2024 End: 04-11-2024 Bamboo flowsheet Neftaly Mcmanus DO Work Phone: [facility] Start: 04-11-2024 End: 04-11-2024 Office outpatient visit 25 minutes Neftaly Mcmanus DO Work Phone: [facility] Comment on above: Acute laryngitis (Pr imary Dx) Start: 04-11-2024 End: 04-11-2024 ambulatory NEFTALY MCMANUS Not Available Start: 03-20-2024 End: 03-20-2024 Office outpatient visit 25 minutes Neftaly Mcmanus DO Work Phone: [facility] Comment on above: Acute laryngitis (Pr imary Dx) Start: 03-20-2024 End: 03-20-2024 ambulatory NEFTALY MCMANUS Not Available Start: 03-20-2024 End: 03-20-2024 Bamboo flowsheet Neftaly Mcmanus DO Work Phone: [facility] Start: 03-20-2024 End: 03-20-2024 Bamboo flowsheet Neftaly Mcmanus DO Work Phone: [facility] Start: 03-09-2024 End: 03-09-2024 ambulatory [facility] Work Phone: Start: 03-09-2024 End: 03-09-2024 Patient encounter procedure [facility] Work Phone: Start: 12-09-2023 End: 12-09-2023 ambulatory [facility] Work Phone: Start: 12-09-2023 End: 12-09-2023 Patient encounter procedure [facility] Work Phone: Start: 10-04-2023 End: 10-04-2023 ambulatory [facility] Start: 09-30-2023 End: 09-30-2023 Patient encounter procedure [facility] Work Phone: Start: 07-13-2023 Bamboo flowsheet Mary Anne Babb DPM Work Phone: [facility] Start: 07-13-2023 Bamboo flowsheet Mary Anne Babb DPM Work Phone: [facility] Start: 07-13-2023 End: 07-13-2023 Office outpatient visit 15 minutes Mary Anne Babb DPM Work Phone: [facility] Comment on above: Diabetic polyneuropa thy associated with type 2 diabetes mellitus (CMS/HCC) (Primary Dx); Hammer toes of both feet Start: 07-13-2023 End: 07-13-2023 ambulatory MARY ANNE BABB Not Available Start: 07-05-2023 End: 07-06-2023 ambulatory Freddy KRAUS [facility] Start: 07-05-2023 End: 07-05-2023 Patient encounter procedure Freddy KRAUS [facility] Start: 09-07-2022 End: 09-07-2022 ambulatory German Miranda Other [employer] Other Start: 09-07-2022 Office outpatient vi sit 25 minutes Kamleroy Miranda [facility] Start: 07-08-2022 End: 07-08-2022 Subsequent hospital visit by physician Kinga Faustin PT [facility] Physical Therapy Start: 07-08-2022 End: 07-08-[address] CHIKI MONIQUE Facility: Start: 05-19-2022 End: 05-21-2022 Subsequent hospital visit by physician [facility] Mammography Room [facility] Mammography Comment on above: Encounter for screen ing mammogram for malignant neoplasm of breast Start: 05-05-2022 End: 05-05-2022 ambulatory Charline Wilburn Other [employer] Other Start: 05-05-2022 Office outpatient vi sit 25 minutes Charline Wilburn [facility] Start: 04-13-2022 End: 04-13-2022 Patient encounter procedure Freddy KRAUS [facility] Start: 09-28-2021 End: 09-28-2021 ambulatory Anais Tamayoler Other [employer] Other Start: 09-28-2021 Office outpatient vi sit 15 minutes Anais Farley [facility] Start: 09-27-2021 End: 09-28-[address] SUZANNE DOUGLAS Facility: Start: 09-25-2021 End: 09-25-2021 ambulatory Mary Anne Chan Other [employer] Other Start: 09-25-2021 Telephone encounter Isai Chan [facility] Start: 09-06-2021 End: 09-06-2021 ambulatory Charline Wilburn Other [employer] Other Start: 09-06-2021 Office outpatient vi sit 15 minutes Charlinedolores Wilburn [facility] Start: 08-12-2021 End: 08-12-2021 ambulatory German Miranda Other [employer] Other Start: 08-12-2021 Office outpatient vi sit 15 minutes Kamal Chaban [facility] Start: 04-03-2020 End: 04-05-2020 Subsequent hospital visit by physician [facility] Mammography Room [facility] Mammography Comment on above: Visit for screening mammogram Start: 03-21-2020 End: 03-21-2020 Subsequent hospital visit by physician Suzanne Douglas [facility] Laboratory Start: 11-02-2019 End: 11-02-2019 Subsequent hospital visit by physician Suzanne Douglas [facility] Laboratory Comment on above: Hypercalcemia Start: 10-10-2019 End: 10-10-2019 Subsequent hospital visit by physician Suzanne Douglas [facility] Laboratory Comment on above: Essential hypertensi on, benign; Type 2 diabetes mellitus without complication, without long-term current use of insulin (HCC); Pure hypercholesterolemia Start: 03-14-2019 End: 03-14-2019 Subsequent hospital visit by physician Suzanne Douglas [facility] Laboratory Comment on above: Metallic taste; Disturbance of smell and taste Start: 02-15-2019 End: 02-17-2019 Subsequent hospital visit by physician [facility] Mammography Room [facility] Laboratory Comment on above: Encounter for screen ing mammogram for breast cancer Start: 05-18-2018 Patient encounter procedure PHYSICIA N NO [facility] Procedures Date Procedure Procedure Detail Performing Clinician Start: 06-02-2024 Basic metabolic pane l calcium total Carlos Horowitz MD Work Phone: Start: 06-02-2024 Ecg routine ecg w/le ast 12 lds w/i&r Carlos Horowitz MD Work Phone: Start: 06-02-2024 Colonoscopy Carlos Horowitz MD Work Phone: Start: 05-22-2024 Screening mammograph y bi 2-view breast inc cad Suzanne Douglas MD Work Phone: Start: 05-11-2024 Ecg routine ecg w/le ast 12 lds w/i&r Carlos Horowitz MD Work Phone: Start: 05-20-2023 Mammography Isai Babb DPM Work Phone: Start: 05-19-2022 Screening mammograph y bi 2-view breast inc cad Suzanne Douglas MD Work Phone: Start: 04-03-2021 Cystoscopy Freddy CASAS Start: 04-03-2020 Screening mammograph y bi 2-view breast inc cad Suzanne Douglas Work Phone: Start: 03-12-2020 Cystoscope, device (physical object) Freddy KRAUS Start: 11-02-2019 Albumin serum plasma /whole blood Suzanne Douglas Work Phone: Start: 11-02-2019 Calcium total Suzanne galloway Work Phone: Start: 10-10-2019 Comprehensive metabo lic panel Suzanne Douglas Work Phone: Start: 10-10-2019 Lipid panel Suzanne mora Work Phone: Start: 10-10-2019 PATIENT FASTING? Suzanne Douglas Work Phone: Start: 03-14-2019 Blood count complete auto&auto difrntl wbc Jase Mcgregor Work Phone: Start: 02-15-2019 Screening mammograph y bi 2-view breast inc cad Suzanne [place] Work Phone: Start: 01-03-2019 Cystoscopy Freddy [place] Start: 11-04-2017 Cystoscopy [place] Start: 09-04-2016 Cystoscopy [place] Start: 08-09-2015 Cystoscopy [place] Start: 06-19-[address] [facility] Room Start: 05-08-2013 Cystoscopy [place] Start: 05-09-2012 Cystoscopy [place] Start: 04-13-2011 Cystoscopy [place] Start: 04-11-2010 Cystoscopy [place] Start: 04-04-2009 Cystoscopy [place] Start: 12-29-2006 Colonoscopy Isai MCDONALDM Work Phone: Start: 12-29-2006 Colonoscopy [place] BREAST BIOPSY X2 LEF T BREAST Freddy NAYANA D&C X2 Freddy NAYANA MASS REMOVAL RIGHT EAR Edgard KRAUS NECK MASS REMOVAL Freddy [place] Plan of Treatment Date Care Activity Detail Author Start: 06-02-2034 Screening for malignant neoplasm of colon [facility] Start: 06-02-2025 GFR test (Diabetes, CKD 3-4, OR last GFR 15-59) GFR test (Diabetes, CKD 3-4, OR last GFR 15-59) [facility] Start: 05-22-2025 Screening for malignant neoplasm of breast Breast cancer [facility] Start: 04-13-2025 Annual Wellness Visit (Medicare) Annual Wellness Visit (Medicare) [facility] [employer] Start: 04-12-2025 Depression Screen Depression Screen [facility] [employer] Start: 10-06-2024 Diabetic foot examination Diabetic foot exam [facility] Start: 10-03-2024 GFR test (Diabetes, CKD 3-4, OR last GFR 15-59) GFR test (Diabetes, CKD 3-4, OR last GFR 15-59) [facility] [employer] Start: 10-03-2024 Lipid panel Lipids [facility] [employer] Start: 10-03-2024 Urine screening for protein Diabetic Alb to Cr ratio (uACR) test [facility] [employer] Start: 07-13-2024 Hemoglobin A1c measurement A1C test (Diabetic or Prediabetic) [facility] Start: 07-13-2024 End: 07-13-2024 Patient encounter procedure 07/13/2024 9:00 AM EST Office Visit [facility] [address] [place] [address] Suzanne Douglas MD [address] [place] [address] 3 months (around 07/13/2024) for DM, HTN, Hyperlipidemia [facility] Comment on above: 3 months (around 07/13/2024) for DM, HTN, Hyperlipidemia Start: 06-02-2024 End: 06-02-2025 Extended cardiac holter monitor (3 days-14 day) [facility] Comment on above: Expected: 06/02/2024, Expires: 6 1 Occurrences starti ng 06/02/2024 until 06/02/2024 Start: 06-02-2024 End: 06-02-2024 Admission to same day surgery center 06/02/2024 7:30 AM EST - 06/02/2024 7:59 AM EST Surgery [facility] [address] [place] [address] Carlos Horowitz MD [address] [place] [address] COLONOSCOPY [facility] Comment on above: COLONOSCOPY Start: 06-02-2024 Subsequent hospital visit by physician 06/02/2024 7:30 AM EST Hospital Encounter [facility] [address] [place] [address] Carlos Horowitz MD [address] [place] [address] [facility] Start: 06-02-2024 End: 06-02-2024 Colonoscopy flx dx w/collj spec when pfrmd [facility] Start: 05-20-2024 Screening for malignant neoplasm of breast [facility] Start: 05-19-2024 Screening for malignant neoplasm of breast Breast cancer screen [facility] Start: 04-11-2024 End: 04-11-2024 Patient encounter procedure 04/11/2024 10:00 AM EST Office Visit [facility] [address] [place] [id number] Neftaly Mcmanus, DO [address] [place] [address] [facility] Start: 03-20-2024 End: 03-20-2024 Patient encounter procedure 03/20/2024 3:30 PM EDT Office Visit [facility] [address] [place] [id number] Neftaly Mcmanus, DO [address] [place] [address] Arrived [facility] Comment on above: Arrived Start: 01-30-2024 COVID-19 Vaccine ( season) COVID-19 Vaccine ( season) [facility] Start: 01-30-2024 Influenza vaccination Influenza Vaccine (#1) [facility] Start: 07-13-2023 End: 07-13-2023 Patient encounter procedure 07/13/2023 9:45 AM EST Office Visit [facility] [address] [place] [phone] Mary Anne Babb DPM [address] [place] [address] Arrived [facility] Comment on above: Arrived Start: 07-01-2023 Depression Screen Depression Screen [facility] [employer] Start: 06-19-2023 Colon cancer screen colonoscopy Colon cancer screen colonoscopy [place] Start: 06-19-2023 Screening for malignant neoplasm of colon [facility] [employer] Start: 06-02-2023 Glaucoma screening Diabetic retinal exam [facility] [employer] Start: 04-14-2023 Diabetic foot examination Diabetic foot exam [facility] [employer] Start: 04-14-2023 Hemoglobin A1c measurement A1C test (Diabetic or Prediabetic) [facility] [employer] Start: 04-12-2023 Cervical cancer screen Cervical cancer screen [place] Start: 04-12-2023 Screening for malignant neoplasm of cervix Cervical cancer screen [place] Start: 01-14-2023 Depression Screen Depression Screen [facility] [employer] Start: 10-13-2022 End: 10-13-2022 Patient encounter procedure 10/13/2022 Office Visit Family Medicine Suzanne [facility] MD [address] [place] [id number] [facility] Start: 06-30-2022 Annual Wellness Visit (AWV) Annual Wellness Visit (AWV) [facility] Start: 06-10-2022 Diabetic retinal exam Diabetic retinal exam [facility] [employer] Start: 04-08-2022 Pneumococcal 65+ years Vaccine (2 of 2 - PCV) Pneumococcal 65+ years Vaccine (2 of 2 - PCV) [facility] Start: 04-08-2022 Pneumococcal Vaccine: 65+ Years (2 - PCV) Pneumococcal Vaccine: 65+ Years (2 - PCV) [facility] Start: 04-08-2022 Pneumococcal Vaccine: 65+ Years (2 of 2 - PCV) Pneumococcal Vaccine: 65+ Years (2 of 2 - PCV) [facility] Start: 04-08-2022 Urine screening for protein [facility] Start: 04-03-2022 Screening for malignant neoplasm of breast Breast cancer screen [place] Start: 10-03-2021 GFR test (Diabetes, CKD 3-4, OR last GFR 15-59) GFR test (Diabetes, CKD 3-4, OR last GFR 15-59) [facility] Start: 10-03-2021 Lipid panel Lipids [facility] Start: 07-25-2021 COVID-19 Vaccine (3 - Booster for Patricia series) COVID-19 Vaccine (3 - Booster for Patricia series) [facility] Start: 02-15-2021 Breast cancer screen Breast cancer screen [place] Start: 02-15-2021 Screening for malignant neoplasm of breast Breast cancer screen [place] Start: 10-09-2020 Creatinine measurement Creatinine monitoring [place], [place] Start: 10-09-2020 HbA1c (Bld) [Mass fraction] A1C test (Diabetic or Prediabetic) [place] Start: 10-09-2020 Lipid panel Lipid screen [place] Start: 10-09-2020 Potassium monitoring Potassium monitoring [place] Start: 06-30-2020 Diabetic retinal exam Diabetic retinal exam [place], [place] Start: 04-11-2020 Diabetic microalbuminuria test Diabetic microalbuminuria test [place] Start: 04-11-2020 HbA1c (Bld) [Mass fraction] A1C test (Diabetic or Prediabetic) [place] Start: 04-10-2020 End: 04-10-2020 Office Visit 04/10/2020 Office Visit Family Medicine Suzanne [place] MD [address] [place] [address] [phone] [facility] Start: 01-30-2020 Influenza vaccination Flu vaccine (#1) [place] Start: 01-06-2020 Breast cancer screen Breast cancer screen [place] Start: 10-05-2019 [object Object] Diabetic foot exam [place] Start: 10-05-2019 A1C test (Diabetic or Prediabetic) A1C test (Diabetic or Prediabetic) [place] Start: 10-05-2019 Diabetic foot examination Diabetic foot exam [place] Start: 06-03-2019 Diabetic retinal exam Diabetic retinal exam [place], [place] Start: 04-12-2019 Creatinine measurement Creatinine monitoring [place], [place] Start: 04-12-2019 Creatinine monitoring Creatinine monitoring [place], [place] Start: 04-12-2019 Lipid panel Lipid screen [place] Start: 04-12-2019 Lipid screen Lipid screen [place] Start: 04-12-2019 Potassium monitoring Potassium monitoring [place] Start: 04-11-2019 End: 04-11-2019 Office Visit 04/11/2019 Office Visit Family Medicine Suzanne [place] MD [address] [place] [address] [phone] [facility] Start: 01-29-2019 Influenza vaccination Flu vaccine (#1) [place] Start: 01-05-2019 Diabetic microalbuminuria test Diabetic microalbuminuria test [place] Start: 12-29-2016 Screening for malignant neoplasm of colon [facility] Start: 2016 Respiratory Syncytial Virus (RSV) or age 60 yrs+ (1 - Risk 60-74 years 1-dose series) Respiratory Syncytial Virus (RSV) or age 60 yrs+ (1 - Risk 60-74 years 1-dose series) [facility] Start: 02-12-2006 Shingles Vaccine (1 of 2) Shingles Vaccine (1 of 2) [facility] Start: 02-12-2001 Screening for malignant neoplasm of colon [facility] Start: 02-12-1975 DTaP/Tdap/Td vaccine (1 - Tdap) DTaP/Tdap/Td vaccine (1 - Tdap) [facility] Start: 02-12-1974 Hepatitis C screening Hepatitis C screen [facility] Start: 02-12-1971 HIV screen HIV screen [place] Start: 02-12-1971 HIV screening HIV screen [place] Start: 02-12-1962 Pneumococcal 0-64 years Vaccine (1 of 1 - PPSV23) Pneumococcal 0-64 years Vaccine (1 of 1 - PPSV23) [place] Start: 1956 Hepatitis C screen Hepatitis C screen [place], [place] Start: 1956 Hepatitis C screening Hepatitis C screen [place], [place] Start: 1956 Screening for malignant neoplasm of colon [facility] End: 02-15-2019 Cytology, Non-Button Clamper Cytology, Non-Button Clamper Lab Routine Once for 1 Occurrences starting 02/15/2019 until 02/15/2019 [place] Comment on above: Once for 1 Occurrences starting 02/16/20 until 02/15/2019 Cytology, Non-Button Clamper Cytology, Non- Button Clamper Lab Routine 02/15/2019 1:54 PM EDT [place] EKG 12 Lead EKG 12 Lead ECG Routine Pre-op testing 05/11/2024 1:52 PM EST [facility] EKG 12 Lead EKG 12 Lead ECG STAT 06/02/2024 7:59 AM EST [facility] End: 03-14-2019 Heavy Metals Screen, Urine Heavy Metals Screen, Urine Lab Routine Once for 1 Occurrences starting 03/14/2019 until 03/14/2019 [place] Comment on above: Once for 1 Occurrences starting 03/14/20 19 until 03/14/2019 Heavy Metals Screen, Urine Heavy Metals Screen, Urine Lab Routine 03/14/2019 7:38 AM EDT [place] End: 11-02-2019 PTH, Intact PTH, Intact Lab Routine Hypercalcemia 1 Occurrences starting 11/02/2019 until 11/02/2019 [place] Comment on above: 1 Occurrences starting 11/02/2019 until 11/02/2019 PTH, Intact PTH, Intact Lab Routine Hypercalcemia 11/02/2019 5:17 PM EDT [place] Immunizations Immunization Date Immunization Notes Care Provider Victor M crenshaw 04-12-2024 influenza, injectabl e, madin gracie canine kidney, preservative free Suzanne [place] MD Work Phone: [facility] 04-06-2023 Influenza, injectabl e, Madin [place] Canine Kidney, preservative free, quadrivalent Mary Anne MCDONALDM Work Phone: [facility] 04-06-2023 influenza virus vaccine, unspecified formulation Neftaly Mcmanus DO Work Phone: [facility] 04-14-2022 Influenza, FLUAD, (a ge 65 y+), Adjuvanted, 0.5mL [facility] Work Phone: 05-30-2021 COVID-19 Vaccine Pfizer - Documentation Purposes Only German Miranda Other [employer] Other 04-08-2021 Influenza, FLUAD, (a ge 65 y+), Adjuvanted, 0.5mL [facility] Work Phone: 04-08-2021 pneumococcal polysaccharide vaccine, [address] [facility] Work Phone: 08-09-2020 COVID-19 Vaccine Patricia - Documentation Purposes Only German Miranda Other [facility] 04-10-2020 influenza, injectabl e, quadrivalent, preservative free [facility] 04-11-2019 influenza virus vaccine, unspecified formulation [facility] 04-11-2019 influenza, high dose seasonal, preservative-free German Miranda Other [facility] Other 04-11-2019 influenza, injectabl e, quadrivalent, preservative free Suzanne Douglas [place], [place] 04-12-2018 influenza virus vaccine, unspecified formulation [facility] 04-12-2018 influenza, high dose seasonal, preservative-free German Miranda Other [facility] Other 04-12-2018 influenza, injectabl e, quadrivalent, preservative free Suzanne [facility] Payers Date Payer Category Payer Private Health Insurance [id number] 2022 Medicare [id number] 2017 Unknown UMR NRECA UMR xx xxxxxxxxxx 2017-Present [address] [place] [address] xxxxxxxxxxxx [id number] 1959 Medicare [id number] 1959 Private Health Insurance [id number] 1959 Unknown [id number] 1956 Unknown [id number] 1955 Unknown [id number] 1955 Unknown [id number] 1955 Unknown [id number] 1955 Unknown [id number] .[id number] 1955 Unknown [id number] .1259 1955 Unknown [id number] 1955 Unknown [id number] 1955 Unknown [id number] Self-pay Self Pay [id number] Social History Date Type Detail Facility Start: 03-14-2019 End: 01-10-2024 Tobacco smoking status NHIS Never smoker [facility] Start: 03-14-2019 End: 06-02-[address] [facility] Start: 1955 Sex Assigned At Not on file M [place], [place] Start: 10-10-2019 End: 06-02-2024 Alcohol intake Current non-drinker of alcohol (finding) [place] Exposure to SARS-CoV-2 (event) Unable to assess [place] Start: 10-10-2019 End: 01-10-2024 Tobacco use and exposure Never used [place], [place] Tobacco smoking status Never [facility] Start: 04-14-2022 History SDOH Financial 5 [facility] Phone: Start: 04-14-2022 End: 07-01-2022 History SDOH Food Worry 1 [facility]: Start: 07-01-2022 History SDOH Financial 4 [facility] Phone: Start: 07-01-2022 History SDOH Transport Non-Med 2 [facility] Phone: Tobacco smoking status CTIS Tobacco smoking consumption unknown [facility] Start: 07-13-2023 End: 04-11-2024 Alcohol intake Lifetime non-drinker (finding) [facility] Start: 07-13-2023 End: 06-02-2024 History of Social function [facility] Start: 1955 Sex Assigned At Female F [facility] How often to you hav e a drink containing alcohol? Never [facility] (I/We) worried whether (my/our) food would run out before (I/we) got money to buy more. Never true [facility] NEGATED: Highlighted rowStart: NAGIF History of tobacco use Passive smoker [facility] Clinical Notes 08-12-2021 to 06-02-2024 Lianet Baird RCP - 06/02/2024 9:15 AM Alexander Goodman RN - 06/02/2024 9:08 AM Alexander Goodman RN - 06/02/2024 9:01 AM Tess Quintanilla RN - 05/25/2024 11:47 AM EST Note Date & Type Note Facility 06-02-2024 History of Present illness Narrative The patient was educated on the use of a epatch monitor. The patient's comprehension was high. The patient was able to verbalize recall. The patient was instructed on how and when to return the monitor. [facility]-02-2024 History of Present illness Narrative Discharge Criteria Outpatients must meet criteria 1 through 7. Up to restroom, void sufficient amount. Yes 1. Minimum 30 minutes after last dose of sedative medication, minimum 120 minutes after last dose of reversal agent. Yes 2. Systolic BP stable within 20 mmHg for 30 minutes & systolic BP between 90 & 180 or within 10 mmHg of baseline. Yes 3. Pulse between 60 and 100 or within 10 bpm of baseline. Yes 4. Spontaneous respiratory rate >/= 10 per minute. Yes 5. SaO2 >/= 95 or >/= baseline. Yes 6. Able to cough and swallow or return to baseline function. Yes 7. Alert and oriented or return to baseline mental status. Yes 8. Demonstrates controlled, coordinated movements, ambulates with steady gait, or return to baseline activity function. Yes 9. Minimal or no pain or nausea, or at a level tolerable and acceptable to patient. Yes 10. Takes and retains oral fluids as allowed. Yes 11. Procedural / perioperative site stable. Minimal or no bleeding. Yes 12. If GI endoscopy procedure, minimal or no abdominal distention or passing flatus. Yes 13. Written discharge instructions and emergency telephone number provided. Yes 14. Accompanied by a responsible adult. Yes Adult patient discharged from facility without responsible person meets above criteria plus the following: a) remains awake without stimulus for 30 minutes b) oriented appropriate for age c) all vital signs stable d) no significant risk of losing protective reflexes e) able to maintain pre-procedure mobility without assistance f) no nausea or dizziness g) transportation arrangements that do not require patient to operate motor Vehicle. Yes Dr. Horowitz called per telegraphic typewriter installer- notified of lab results. Dr. Horowitz states he is aware, patient continues to be normal sinus rhythm on monitor and free of pauses since being in phase II recovery. Dr. Horowitz states we are good to put the ms access database developer on her and discharge her home. Alexander Zazueta RN 06/02/[address] [facility] Preadmission Testing Name: Kathryn Giordano : 1955 Patient (home) Procedure: Colonoscopy Date of Procedure: 06/02/2024 Surgeon: Carlos Horowitz MD Ht: 162.6 cm (5' 4 ) Wt: 104.3 kg (230 lb) Wt method: Stated Allergies: Allergies Allergen Reactions Cozaar [Losartan] Swelling and Rash Singulair [Montelukast Sodium] Rash There were no vitals filed for this visit. No LMP recorded. Patient is postmenopausal. Do you take blood thinners? [] Yes [x] No Instructed to stop blood thinners prior to procedure? [] Yes [] No [x] N/A Do you have sleep apnea? [] Yes [x] No Do you have acid reflux ? [x] Yes [] No Do you have hiatal hernia? [] Yes [x] No Do you ever experience motion sickness? [] Yes [x] No Have you had a respiratory infection or sore throat in last 4 weeks before surgery? [] Yes [x] No Ulcers on voicebox Do you have poorly controlled asthma or COPD? Difficulty with intubation in past? [] Yes [x] No [] Yes [x] No States she lost her voice after Do you have a history of angina in the last month or symptomatic arrhythmia? [] Yes [x] No Do you have significant central nervous system disease? [] Yes [] No Have you had an EKG, labs, or chest xray in last 12 months? If yes provide copies to anesthesia [x] Yes [] No [] Lab [x] EKG [] CXR Have you had a stress test? [x] Yes [] No When/where: 2013, Dr. Lema Was it normal? [x] Yes [] No Do you or your family have a history of Malignant Hyperthermia? [] Yes [x] No Do you smoke? [] Yes [] No Please refrain from smoking on the day of surgery. Patient instructed on: [x] NPO Status [x] Meds to Take [] Hold GLP-1 Receptor Agonist [x] Ride Home [x] No Jewelry/Contact Lenses/Nail Icelandic [x] Prep/Lax/Clear Liquids [] Chlorhexidene DOS Patient Needs [] HCG [x] Blood Sugar [] PT/INR [] T&S Do you have any metal allergies? [] Yes [] No If yes, to what metals: Patient instructed on the pre-operative, intra-operative, and post-operative process? Yes Medication instructions reviewed with patient? Yes documented in this encounter [facility] 06-02-2024 Hospital Discharge instructions Carlos Horowitz MD - 06/02/2024 7:37 AM EST Discharge Instructions Admission Date: 06/02/2024 Discharge Date: 06/02/24 Disposition: Home Activity: As tolerated Diet: Diabetic Discharge Instructions: Resume previous home medication. Follow Up: With your primary care physician (Dr. Douglas) in 2 weeks. documented in this encounter [facility] 04-11-2024 History of Present illness Narrative Subjective Patient ID: HPI Patient presents today following treatment for a significant probably viral laryngitis. Her voice is much better but not completely back. Review of Systems ROS The specialty specific review of systems is noncontributory except for that recorded in the intake questionnaire and /or described in the history of present illness. Objective ENT Physical Exam Physical Exam Constitutional: Appearance: Normal appearance. HENT: Head: Atraumatic. Ears: External ear shows no abnormality Bilateral ear canals are clear Tympanic membranes intact, no evidence of middle ear fluid or other pathology. Nose: External nose appears to be normal Nares patent. Septal deviation to the right No evidence of polyp, mass or pus bilaterally. Oral Cavity: No evidence of trismus Lips appear normal Dental good Tongue of normal size and configuration, floor of mouth mucosa clear. Buccal mucosa shows no evidence of ulceration, mass or other abnormality Hard palate soft palate mucosa intact with no evidence of mass, ulceration or other abnormality Uvula of normal size and configuration Oropharynx: Tonsils small Posterior pharyngeal wall normal Neck: No evidence of palpable abnormality Thyroid without evidence of thyromegaly or mass. No cervical lymphadenopathy present. Cardiovascular: Rate and Rhythm: Normal rate and regular rhythm. . Skin: General: Skin is warm and dry. Neurological: General: No focal deficit present. Mental Status: alert and oriented to person, place, and time. FIBEROPTIC NASOPHARYNGOLARYNGOSCOPY A diagnostic flexible fiberoptic laryngoscopy was performed. The flexible fiberoptic laryngoscope was placed into the nose and advanced to the level of the tip of the epiglottis. Examination of the larynx including both surfaces of the epiglottis false and true vocal folds, arytenoids and surrounding mucosal surfaces show no evidence of lesion, ulceration or mass. Normal bilateral true vocal fold motion is present. 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 Assessment/Plan Kathryn was seen today for cough. Diagnoses and all orders for this visit: Acute laryngitis (Primary) Comments: Patient to continue hydration, voice rest, etcetera. I will see her back as needed documented in this encounter [facility] 03-20-2024 History of Present illness Narrative Subjective Patient ID: HPI Patient presents today with about a month history of significant cough and hoarseness. She says her voice is a little better today than it has been. When this all started she completely lost her voice. 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 I have not seen her since. Was prescribed number of medications for the cough that do not seem to be helping. She was also prescribed an inhaler recently. She does not have asthma. This was done for the cough. She is significantly hoarse. Review of Systems ROS The specialty specific review of systems is noncontributory except for that recorded in the intake questionnaire and /or described in the history of present illness. Objective ENT Physical Exam Physical Exam Constitutional: Appearance: Normal appearance. HENT: Head: Atraumatic. Ears: External ear shows no abnormality Bilateral ear canals are clear Tympanic membranes intact, no evidence of middle ear fluid or other pathology. Nose: External nose appears to be normal Nares patent. Septal deviation to the left No evidence of polyp, mass or pus bilaterally. Oral Cavity: No evidence of trismus Lips appear normal Dental good Tongue of normal size and configuration, floor of mouth mucosa clear. Buccal mucosa shows no evidence of ulceration, mass or other abnormality Hard palate soft palate mucosa intact with no evidence of mass, ulceration or other abnormality Uvula of normal size and configuration Oropharynx: Tonsils small Posterior pharyngeal wall the arm Neck: No evidence of palpable abnormality Thyroid without evidence of thyromegaly or mass. No cervical lymphadenopathy present. Cardiovascular: Rate and Rhythm: Normal rate and regular rhythm. . Skin: General: Skin is warm and dry. Neurological: General: No focal deficit present. Mental Status: alert and oriented to person, place, and time. FIBEROPTIC NASOPHARYNGOLARYNGOSCOPY A diagnostic flexible fiberoptic laryngoscopy was performed. The flexible fiberoptic laryngoscope was placed into the nose and advanced to the level of the tip of the epiglottis. Examination of the larynx including both surfaces of the epiglottis false and true vocal folds, arytenoids and surrounding mucosal surfaces show no evidence of lesion, ulceration or mass. Normal bilateral true vocal fold motion is present. Bilateral piriform sinuses and base of tongue appear without lesion . They are kissing ulcers on the striking surfaces of the left and right anterior true vocal cords. Assessment/Plan Kathryn was seen today for cough. Diagnoses and all orders for this visit: Acute laryngitis (Primary) Comments: I showed the patient the video. It is going to take some time for this to resolve. I recommended vigorous hydration, use of steam inhalation, voice rest as much as possible. She should stop the inhaler, it is not working. She was on steroids but she is diabetic some reluctance to represcribed those. I will see her back in a couple of weeks. documented in this encounter [facility] 07-13-2023 History of Present illness Narrative Subjective Patient ID: Kathryn Giordano is a 68 y.o. female who presents for DM Foot Care (Here for yearly diabetic foot check. ). Pt here for diabetic foot check only. Denies any other trouble. Denies numbness, tingling or burning and does her own nails at home. Sugar was 212 yesterday Recent weight gain-- General: Chillsdenies. Feverdenies. Musculoskeletal: muscle weaknessdenies. Bone/joint symptomsdenies. Peripheral Vascular: Edemadenies. Hx of blood clots in legsdenies. Raynaud'sdenies. Rest pain denies. Ulceration of feetdenies. Varicose veinsdenies. Skin: Hyperpigmentationdenies. Nail changesdenies. Rashdenies. Skin lesion(s)denies. Neurologic: Gait abnormalitydenies. Tingling/Numbnessdenies. Current Medications Current Outpatient Medications: glimepiride (Amaryl) 2 MG tablet, Take 1 tablet by mouth in the morning., Disp: , Rfl: hydroCHLOROthiazide (HYDRODiuril) 25 MG tablet, Take 1 tablet by mouth in the morning., Disp: , Rfl: lisinopril 5 MG tablet, Take 1 tablet by mouth in the morning., Disp: , Rfl: lovastatin (Mevacor) 40 MG tablet, Take 40 mg by mouth at bedtime, Disp: , Rfl: meloxicam (Mobic) 15 MG tablet, Take 1 tablet by mouth in the morning., Disp: , Rfl: metFORMIN XR (Glucophage-XR) 500 MG 24 hr tablet, TAKE 2 TABLETS BY MOUTH EVERY DAY WITH BREAKFAST, Disp: , Rfl: metoprolol succinate XL (Toprol-XL) 25 MG 24 hr tablet, Take 1 tablet by mouth in the morning., Disp: , Rfl: alpha tocopherol (Vitamin E) 400 units capsule, Take 1 capsule by mouth in the morning., Disp: , Rfl: Ascorbic Acid (vitamin C) 500 MG tablet, Take 1 tablet by mouth in the morning., Disp: , Rfl: cetirizine (ZyrTEC) 10 MG tablet, Take 1 tablet by mouth in the morning., Disp: , Rfl: CINNAMON PO, Take by mouth, Disp: , Rfl: GLUCOSAMINE-CHONDROITIN PO, Take by mouth, Disp: , Rfl: Multiple Vitamins-Minerals (ZINC PO), Take by mouth, Disp: , Rfl: omega-3 (Fish Oil) 1000 MG capsule, Take 3 capsules by mouth in the morning., Disp: , Rfl: VITAMIN D PO, Take by mouth, Disp: , Rfl: zinc gluconate 50 MG tablet, Take 50 mg by mouth in the morning., Disp: , Rfl: Allergies Losartan and Montelukast Medical Histories Past Medical History: Diagnosis Date Allergic rhinitis Asthma (CMS/HCC) Cancer (CMS/HCC) GERD (gastroesophageal reflux disease) HTN (hypertension) (CMS/HCC) Hyperlipidemia (CMS/HCC) Sleep apnea Surgical Histories Past Surgical History: Procedure Laterality Date BLADDER SURGERY BREAST SURGERY CARPAL TUNNEL RELEASE Right COLONOSCOPY x2 DILATION AND CURETTAGE OF UTERUS GALLBLADDER HYSTEROSCOPY NASAL SEPTUM SURGERY NECK SURGERY PELVIC LAPAROSCOPY UPPER GI SERIES Hospitalizations Family History Family History Problem Relation Name Age of Onset Cancer Mother Other (htn) Mother Diabetes Father Other (htn) Father Objective Foot Exam General General Appearance: appears stated age and healthy Orientation: alert and oriented to person, place, and time Right Foot/Ankle Inspection and Palpation Ecchymosis: none Tenderness: none Swelling: none Arch: normal Hammertoes: second toe, third toe, fourth toe and fifth toe Hallux valgus: no Hallux limitus: no Skin Exam: skin intact; Atrophic skin and neg digital hair Neurovascular Dorsalis pedis: 3+ Posterior tibial: 3+ absent sharp sensation all toes and 2 areas 5.07 monofilament Achilles reflex: 2+ Babinski reflex: 2+ Muscle Strength Ankle dorsiflexion: 5 Ankle plantar flexion: 5 Ankle inversion: 5 Ankle eversion: 5 Great toe extension: 5 Great toe flexion: 5 Range of Motion Normal right ankle ROM Left Foot/Ankle Inspection and Palpation Ecchymosis: none Tenderness: none Swelling: none Arch: normal Hammertoes: second toe, third toe, fourth toe and fifth toe Claw toes: absent Hallux valgus: no Hallux limitus: no Skin Exam: skin intact; Atrophic skin and neg digital hair Neurovascular Dorsalis pedis: 3+ Posterior tibial: 3+ absent sharp sensation lesser toes and 2 areas 5.07 monofilament Achilles reflex: 2+ Babinski reflex: 2+ Muscle Strength Ankle dorsiflexion: 5 Ankle plantar flexion: 5 Ankle inversion: 5 Ankle eversion: 5 Great toe extension: 5 Great toe flexion: 5 Range of Motion Normal left ankle ROM Assessment/Plan Diagnoses and all orders for this visit: Diabetic polyneuropathy associated with type 2 diabetes mellitus (CMS/HCC) Hammer toes of both feet Neuropathy: sugar control emphasized and caution for wounds and regular inspections. any new problems with appt sugg. pain can b treated with topical or oral measures, many were offered. pain can b managed with topcial or oral methods and offered today Hammertoe: deformed toes reviewed with risk of ulceration and infection. shoe changes reviewed including rx shoes. extra depth needed and will use pads until shoe fit improved.. surgical correction also reviewed Shoes reviewed and orthotics PCP Dr. Stella VALENZUELA 07/08/2023 documented in this encounter [facility] 07-05-2023 Note [id number] [facility] 07-05-2023 Note Cystoscopy ? Voiding after the procedure: there may be some pain, burning, urgency, frequency and blood tinged urine following the procedure. These symptoms usually resolve within 2-5 days. Drink the amount of fluid it takes to keep the urine pink to yellow or clear in color. Drinking enough water and fluids will help to ease any discomfort after your procedure. ? If you are having problems that seem out of the ordinary, please call. ? If unable to contact your physician and you feel it is an emergency, go to the nearest emergency room or call 911 ? Diet ? you may resume your normal diet. ? Activity ? you may resume your normal activities ? Call if you have a fever over 100 degrees. [facility] 07-05-2023 Hospital Discharge instructions Patient Education 07/05/2023 16:14:38 [facility] - Cystoscopy Discharge Instructions (Custom) Cystoscopy Voiding after the procedure: there may be some pain, burning, urgency, frequency and blood tinged urine following the procedure. These symptoms usually resolve within 2-5 days. Drink the amount of fluid it takes to keep the urine pink to yellow or clear in color. Drinking enough water and fluids will help to ease any discomfort after your procedure. If you are having problems that seem out of the ordinary, please call. If unable to contact your physician and you feel it is an emergency, go to the nearest emergency room or call 911 Diet you may resume your normal diet. Activity you may resume your normal activities Call if you have a fever over 100 degrees. Follow Up Care 06/02/2023 13:34:18 With:Freddy KRAUS Address: [address] [place] [address] Business (1) When: Unknown Comments:As we discussed, your bladder looks good. Evidence of prior scars. The plan will be for a repeat scope in about 1 year provided the FISH test is negative.Please finish your antibiotic.Have a great day. [facility] 07-05-2023 Evaluation + Plan note Diagnostic Tests Pending[facility]roVysion Fish and Urine Cyto ([facility]) 07/05/23 [facility] 09-07-2022 Evaluation note Encounter Date Diagnosis Assessment Notes Aug, Cough variant asthma (ICD-10 - J45.991) Aug, Gastro-esophage al reflux disease without esophagitis (ICD-10 - K21.9) Aug, Seasonal allergic rhinitis due to pollen (ICD-10 - J30.1) Aug, Obstructive sleep apnea (ICD-10 - G47.33) [facility] Other 02-08-2023 History of Present illness Narrative* Marichuy Zazueta - 07/08/2022 2:00 PM EST Physical Therapy [facility] Date: 07/08/2022 Patient Name: Kathryn Giordano : 1955 Pt Cancelled Appt due to Illness Marichuy Zazueta Date: 07/08/2022 [facility] Phone: [phone] 125-752912-06-2022 Evaluation note* Encounter Date Diagnosis Assessment Notes Treatment Notes Treatment Clinical Notes Apr, Cough (ICD-10 - R05.9) Apr, COVID-19 (ICD-10 - U07.1) Today you tested positive for the COVID virus. This mean you need to follow all CDC quarantine guidelines found at [email or web address] v. It is important to rest, increase fluids, and stay at home. Recommend contacting primary care provider and discussing best course of action if you have chronic health conditions. COVID POSITIVE education handout discharge instructions. given. Apr, Laryngitis (ICD-10 - J04.0) Symptoms of laryngitis is caused by viruses. Salt water gargles may help with discomfort. Take medications as directed. Cool mist humidifier, steaming up bathroom with shower may help with symptom relief. Follow up with primary care provider if no improvement of symptoms BLOOD GLUCOSE WILL BE INCREASED FROM STEROIDS - WATCH CARB INTAKE AND CONTACT PCP IF MEDICATION NEEDS TO BE ADJUSTED. [facility] Other 11-14-2022 Hospital Discharge instructions Patient Education 04/13/2022 14:19:17 [facility] - Cystoscopy Discharge Instructions (Custom) Cystoscopy Voiding after the procedure: there may be some pain, burning, urgency, frequency and blood tinged urine following the procedure. These symptoms usually resolve within 2-5 days. Drink the amount of fluid it takes to keep the urine pink to yellow or clear in color. Drinking enough water and fluids will help to ease any discomfort after your procedure. If you are having problems that seem out of the ordinary, please call. If unable to contact your physician and you feel it is an emergency, go to the nearest emergency room or call 911 Diet you may resume your normal diet. Activity you may resume your normal activities Call if you have a fever over 100 degrees. Follow Up Care 03/24/2022 10:01:15 With:Freddy KRAUS Address: [address] [place], [place] [id number]- Business (1) When: Unknown Comments:The plan will be to repeat the scope in about 1 year. Please call for any development of blood or clots in the urine.Please finish your antibiotic. Have a great day! [facility]11-[facility]20[facility] Evaluation + Plan note Diagnostic Tests Pending * [facility] Fish and Urine Cyto ([facility]) 04/13/22 [facility]05-01-2022 Evaluation note* Encounter Date Diagnosis Assessment Notes Treatment Notes Treatment Clinical Notes September, Persistent cough for 3 weeks or longer (ICD-10 - R05.3) Advised patient that rapid COVID antigen test and Influenza A/B test was negative today in office. Chest XR complete, no acute findings noted. Advised patient to continue prednisone therapy and inhalers that were previously prescribed. Will send in rx of Doxycycline. Advised to use as directed, finish entire course of medication. Advised patient to call PCP tomorrow to make follow up appointment. Immediate evaluation in ER for difficulty breathing, chest pain, increased shortness of breath, fevers > 103, signs of dehydration, or if any new or concerning symptoms arise. Patient verbalizes understanding and is agreeable with treatment plan September, Contact with and (suspected) exposure to other viral communicable diseases (ICD-10 - Z20.828) September, Other Additional time spent conducting pre-visit phone call, screening for symptoms, instructions on social distancing, application and removal of PPE, and cleaning of examination room, equipment and supplies was preformed. Patient education given for testing methodology and results. Patient care instructions given in writting by [facility] Care At Home document [employer] Other 04-09-2022 Evaluation note* Encounter Date Diagnosis Assessment Notes Treatment Notes Treatment Clinical Notes Aug, Cough (ICD-10 - R05.9) Aug, Mild intermittent asthma with acute exacerbation (ICD-10 - J45.21) Take medications as directed with food. Complete all doses of steroids. Use inhale at least 2-3 times per day for next 48 hours. Increase fluid intake. Follow up with primary care provider is recommended to discuss treatment plan changes to asthma. Seek emergency help if difficulty breathing develops Watch carb intake while taking steroids [employer] Other 03-15-2022 Evaluation note* Encounter Date Diagnosis Assessment Notes Treatment Notes Treatment Clinical Notes Jul, Cough variant asthma (ICD-10 - J45.991) [employer] Other Evaluation noteNo [employer]ort [employer] Other Evaluation note* Diagnosis Encounter for screening mammogram for malignant neoplasm of breast Other screening mammogram documented in this encounter [facility] [employer] Work Phone: evaluation note* Diagnosis Diabetic polyneuropathy associated with type 2 diabetes mellitus ([facility])- Primary Hammer toes of both feet documented in this encounter [facility] HealthcareEvaluation note* Diagnosis Onset Date Resolution Status Allergic rhinitis acute Asthma exacerbation, mild ac kip GERD (gastroesophageal reflux disease) acute Obesity acute Peripheral eosinophilia acut e BMI 39.0-39.9,adult resolved Allergic rhinitis acute GERD (gastroesophageal reflux disease) acute Mild intermittent asthma, uncomplicated acute Obesity acute Peripheral eosinophilia acut e [facility] Work Phone: evaluation noteNo assessment information available [facility] Work Phone: Evaluation note* Diagnosis Acute laryngitis- Primary documented in this encounter [facility]* Diagnosis Acute laryngitis- Primary documented in this encounter [facility] HealthcareEvaluation note* Diagnosis Pre-op testing Preoperative examination, unspecified Encounter for screening colonoscopy Special screening for malignant neoplasms, colon documented in this encounter [facility]* Diagnosis Encounter for screening mammogram for malignant neoplasm of breast Other screening mammogram Encounter for screening colonoscopy Special screening for malignant neoplasms, colon documented in this encounter [facility]* Diagnosis Sinus bradycardia- Primary Other specified cardiac dysrhythmias Sinus pause Other heart block documented in this encounter [facility]* Diagnosis Sinus bradycardia Other specified cardiac dysrhythmias Sinus pause Other heart block documented in this encounter [facility] general Narrative - Reported* Type Description Date Medical History bladder cancer Medical History hypercholesterolemia Medical History Hypertension Medical History mild LINDSAY (AHI 5.5) Medical History asthma Medical History GERD Medical History Lumbar disc herniation Surgical History neck cyst removal 1972 Surgical History Procedure:Breast Cyst;Disease: Surgical History bladder cancer surgery 1986 Surgical History Procedure:D&C;Disease: Surgical History ear mass 1994 Surgical History Procedure:Bladder Cancer;Diseas e: 1996 Surgical History breast cyst 1996 Surgical History Procedure:Gallbladder;Disease: Surgical History carpal tunnel release 1997 Surgical History Procedure:Neck Cyst;Disease: Surgical History D&C 2001, 2008 Surgical History Septoplasty SMR Turbinates 06/25 Surgical History carpal tunnel Surgical History cholecystectomy 2000 Surgical History colonoscopy 2008 Surgical History cyst removal from ear Surgical History breast cyst removal 2002 Surgical History DML Steroid Injection Left TVC 03/17/2019 Surgical History polyp removed from 2019 Hospitalization History See [employer] Other [employer] general Narrative - Reported* Type Description Date Medical History bladder cancer Medical History hypercholesterolemia Medical History Hypertension Medical History mild LINDSAY (AHI 5.5) Medical History asthma Medical History GERD Medical History Lumbar disc herniation Medical History diabetes mallitus Surgical History neck cyst removal 1972 Surgical History Procedure:Breast Cyst;Disease: Surgical History bladder cancer surgery 1986 Surgical History Procedure:D&C;Disease: Surgical History ear mass 1994 Surgical History Procedure:Bladder Cancer;Diseas e: 1996 Surgical History breast cyst 1996 Surgical History Procedure:Gallbladder;Disease: Surgical History carpal tunnel release 1997 Surgical History Procedure:Neck Cyst;Disease: Surgical History D&C 2001, 2008 Surgical History Septoplasty SMR Turbinates 06/25 Surgical History carpal tunnel Surgical History cholecystectomy 2000 Surgical History colonoscopy 2008 Surgical History cyst removal from ear Surgical History breast cyst removal 2002 Surgical History DML Steroid Injection Left TVC 03/17/2019 Surgical History polyp removed from 2019 Hospitalization History See [employer] Other Hospital course Narrative No data [facility] data available for this section [facility] Summary Purpose Family History Relationship Condition Age at Onset Recorded Date/T krish mother Malignant neoplasm of colon Unknown Malignant neoplasm of breast Unknown Diabetes mellitus Unknown Coronary artery disease Unknown Hypertension Unknown History of stroke Unknown sister Malignant neoplasm of breast Unknown brother Diabetes mellitus Unknown father Diabetes mellitus Unknown Heart disease Unknown Advance Directives Date Activated Date Inactivated Comments 06/02/2024 6:40 AM 06/02/2024 11:09 AM Date Activated Date Inactivated Comments 06/19/2013 7:02 AM 06/19/2013 4:52 PM Healthcare Agents on File Name Relationship Healthcare Agent Relationship Communication Valentino Tarynger Spouse Primary Decision Maker Documents on File Type Date Recorded Patient Package Dye Stand Loader Expl anation Advance Directives and Living Will Power of Biology Department Chair Latest Code Status on File Code Status Date Activated Date Inactivated Comments Full Code 06/19/2013 7:02 AM 06/19/2013 4:52 PM Documents on File Type Date Recorded Patient Package Dye Stand Loader Expl anation ACP-Advance Directive ACP-Power of Biology Department Chair Documents on File Type Date Recorded Patient Package Dye Stand Loader Expl anation ACP-Advance Directive ACP-Power of Biology Department Chair Latest Code Status on File Code Status Date Activated Date Inactivated Comments Full Code 06/19/2013 7:02 AM 06/19/2013 4:52 PM Documents on File Type Date Recorded Patient Package Dye Stand Loader Expl anation Advance Directives and Living Will Power of Biology Department Chair Healthcare Agents on File Name Relationship Healthcare Agent Relationshi p Communication Valentinohumera Ma Spouse Primary Decision Maker Healthcare Agents on File Name Relationship Healthcare Agent Relationshi p Communication Valentinohumera [employer] Spouse Primary Decision Maker Advance Directive Response Recorded Date/ Time Advance Directives No April 12:29pm Date Activated Date Inactivated Comments 06/19/2013 7:02 AM 06/19/2013 4:52 PM Healthcare Agents on File Name Relationship Healthcare Agent Relationship Communication Valentino Tarynger Spouse Primary Decision Maker Healthcare Agents on File Name Relationship Healthcare Agent Relationship Communication Valentino Weidenger Spouse Primary Decision Maker Date Activated Date Inactivated Comments 06/02/2024 6:40 AM Date Activated Date Inactivated Comments 06/19/2013 7:02 AM 06/19/2013 4:52 PM Healthcare Agents on File Name Relationship Healthcare Agent Relationship Communication Valentino Weidenger Spouse Primary Decision Maker Date Activated Date Inactivated Comments 06/02/2024 6:40 AM 06/02/2024 11:09 AM Healthcare Agents on File Name Relationship Healthcare Agent Relationship Communication Valentino Ma Spouse Primary Decision Maker Assessments Diagnosis Metallic taste Disturbances of sensation of smell and taste Disturbance of smell and taste Disturbances of sensation of smell and taste Diagnosis Essential hypertension, benign Type 2 diabetes mellitus without complication, without long-term current use of insulin (HCC) Pure hypercholesterolemia Diagnosis Hypercalcemia Diagnosis Visit for screening mammogram Other screening mammogram Diagnosis Encounter for screening mammogram for breast cancer Reason for Referral Status Reason Specialty Diagnoses / Procedures Referre d By Contact Referred To Contact Closed Radiology Diagnoses Visit for screening mammogram Procedures THIERNO RENEE DIGITAL SCREEN BILATERAL Suzanne Douglas MD [address] [place] [address] [facility] [address] [place] [address] Status Reason Specialty Diagnoses / Procedures Referre d By Contact Referred To Contact Closed Radiology Diagnoses Encounter for screening mammogram for breast cancer Procedures THIERNO DIGITAL SCREEN W OR WO CAD BILATERAL Suzanne Douglas MD [address] [place] [address] Specialty Diagnoses / Procedures Referred By Manoj t Referred To Contact Radiology Diagnoses Encounter for screening mammogram for malignant neoplasm of breast Procedures THIERNO RENEE DIGITAL SCREEN BILATERAL Suzanne Douglas MD [address] [place] [address] Referral ID Status Reason Start Date Expiration Date Visits Re quested Visits Authorized [id number] Closed 04/15/2022 04/15/2023 1 1 Specialty Diagnoses / Procedures Referred By Manoj castaneda Referred To Contact Cardiology Diagnoses Pre-op testing Procedures EKG 12 Lead Back, MD Carlos [address] [place] [address] Referral ID Status Reason Start Date Expiration Date Visits Re quested Visits Authorized [id number] Open 05/18/2024 05/18/2025 1 1 Referral ID Status Reason Start Date Expiration Date Visits Re quested Visits Authorized [id number] Closed 05/20/2024 05/20/2025 1 1 Specialty Diagnoses / Procedures Referred By Contac t Referred To Contact Diagnoses Sinus bradycardia Sinus pause Procedures Extended cardiac holter monitor (3 days-14 day) NE EXTERNAL ECG REC>48HR<7D REVIEW & INTERPRETATION NE EXTERNAL ECG REC>48HR<7D RECORDING NE EXTERNAL ECG REC>7D<15D RECORDING NE EXTERNAL ECG REC>7D<15D REVIEW & INTERPRETATION Back, MD [address] [place] [id number] Referral ID Status Reason Start Date Expiration Date V isits Requested Visits Authorized [id number] Not Required - RTA 06/02/2024 06/02/2025 1 1 Chief Complaint and Reason for Visit Chief Complaint 1 year f/u- Cough Va riant Asthma GERD LINDSAY 2 mo f/u Asthma, Cough Reason for Visit Allergic rhinitis Asthma exacerbation, mild GERD (gastroesophageal reflux disease) Obesity Peripheral eosinophilia BMI 39.0-39.9,adult Allergic rhinitis GERD (gastroesophageal reflux disease) Mild intermittent asthma, uncomplicated Obesity Peripheral eosinophilia Chief Complaint Cough, sinus drainag e Additional Source Comments INFORMATION SOURCE (unrecogn ized section and content) DATE CREATED AUTHOR 05/21/2018 [facility] DATE CREATED AUTHOR AUTHOR'S ORGANIZ ATION 10/18/2021 [facility] DATE CREATED AUTHOR AUTHOR'S ORGANIZ ATION 07/09/2022 [facility] DATE CREATED AUTHOR AUTHOR'S ORGANIZ ATION 07/13/2023 [facility] DATE CREATED AUTHOR AUTHOR'S ORGANIZ ATION 04/13/2024 [facility] DATE CREATED AUTHOR AUTHOR'S ORGANIZ ATION 05/26/2024 Suzy whitley Reason for Visit (unrecogniz ed section and content) Status Reason Specialty Diagnoses / Procedures Referre d By Contact Referred To Contact Closed Radiology Diagnoses Visit for screening mammogram Procedures THIERNO RENEE DIGITAL SCREEN BILATERAL Suzanne Douglas MD [address] [place] [phone] [facility] [address] [place] [phone] Status Reason Specialty Diagnoses / Procedures Referre d By Contact Referred To Contact Closed Radiology Diagnoses Encounter for screening mammogram for breast cancer Procedures THIERNO DIGITAL SCREEN W OR WO CAD BILATERAL Suzanne Douglas MD [address] [place] [phone] Specialty Diagnoses / Procedures Referred By Contac t Referred To Contact Radiology Diagnoses Encounter for screening mammogram for malignant neoplasm of breast Procedures THIERNO RENEE DIGITAL SCREEN BILATERAL Suzanne Douglas MD [address] [place] [phone] Referral ID Status Reason Start Date Expiration Date Visits Re quested Visits Authorized [id number] Closed 04/15/2022 04/15/2023 1 1 Specialty Diagnoses / Procedures Referred By Manoj t Referred To Contact Physical Therapist / Physical Therapy Diagnoses Acute pain of right shoulder Suzanne Douglas MD [address] [place] [phone] [facility] [address] [place] [id number] Referral ID Status Reason Start Date Expiration Date V isits Requested Visits Authorized [id number] Open Specialty Services Required 07/01/2022 07/01/2023 1 1 Reason Comments DM Foot Care Here for yearly diab etic foot check. Reason Comments Cough Established patient, cough Reason Comments Cough 3 week tavia Referral ID Status Reason Start Date Expiration Date Visits Re quested Visits Authorized [id number] Closed 05/20/2024 05/20/2025 1 1 Specialty Diagnoses / Procedures Referred By Manoj t Referred To Contact Diagnoses Encounter for screening colonoscopy Encounter for screening colonoscopy [Z12.11] Procedures NE COLONOSCOPY FLX DX W/COLLJ SPEC WHEN PFRMD NE COLSC FLX W/RMVL OF TUMOR POLYP LESION SNARE TQ NE COLONOSCOPY W/BIOPSY SINGLE/MULTIPLE COLONOSCOPY Carlos Horowitz MD [address] 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 Operator Relationship Specialty Start Date End Date Suzanne Douglas MD [address] [place] [address] PCP - General Family Medicine 07/13/23 Sanding 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 Operator Relationship Specialty Start Date End Date Suzanne Douglas MD [address] [place], [place] [phone] PCP - General Family Medicine 07/13/23 Team Status: Active Member Role Status Dates Suzanne Douglas MD Primary Care Provider Active Team Status: Inactive Member Role Status Dates Suzanne Douglas MD Primary Care Provider Active Start: September 30, 2023 End: September 30, 2023 Blaise Lassiter DO Attending Provider Active St art: September 30, 2023 End: September 30, 2023 Team Status: Inactive Member Role Status Dates Suzanne Douglas MD Primary Care Provider Active Start: December 09, 2023 End: December 09, 2023 Blaise Lassiter DO Attending Provider Active St art: December 09, 2023 End: December 09, 2023 Team Status: Inactive Member Role Status Dates Suzanne Douglas MD Primary Care Provider Active Start: March 09, 2024 End: March 09, 2024 Shannon M Damaris , FURNACE INSTALLER Attending Provider Active Start: March 09, 2024 End: March 09, 2024 Sanding 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 Operator Relationship Specialty Start Date End Date Suzanne Douglas MD [address] [place] [id number] PCP - General Family Medicine 07/13/23 Haider Lopez MD [address] [place] [phone] Referring Physician Family Medicine 03/20/24 Neftaly Mcmanus DO [address] [place] [address] Otolaryngology 03/20/24 Sanding Line Operator Relationship Specialty Start Date End Date Suzanne Douglas MD [address] [place], [place] [phone] PCP - General Family Medicine 07/13/23 Haider Lopez MD [address] [place] [phone] Referring Physician Family Medicine 03/20/24 Neftaly Mcmanus DO [address] [place] [address] Otolaryngology 03/20/24 Sanding Line Operator Relationship Specialty Start Date End Date Suzanne Douglas MD [address] [place] [phone] PCP - General Family Medicine 07/13/23 Haider Lopez MD [address] [place] [address] Referring Physician Family Medicine 03/20/24 Neftaly Mcmanus DO [address] [place] [address] Otolaryngology 03/20/24 Sanding Line Operator Relationship Specialty Start Date End Date Suzanne Douglas MD [address] [phone] PCP - General Family Medicine 10/27/17 Sanding Line Operator Relationship Specialty Start Date End Date Suzanne Douglas MD [address] [phone] PCP - General Family Medicine 10/27/17 Sanding Line Operator Relationship Specialty Start Date End Date Suzanne Douglas MD [address] [phone] PCP - General Family Medicine 10/27/17 Sanding Line Operator Relationship Specialty Start Date End Date Suzanne Douglas MD [address] [phone] PCP - General Family Medicine 10/27/17 Goals (unrecognized section and content) Goals may be documented in a n alternate section Scheduled Active and Recently Administ ered Medications (unrecognized section and content) Medication Order 05/31/2024 06/01/2024 06/02/2024 sodium chloride flush 0.9 % injection 5-40 mL 5-40 mL, IntraVENous, EVERY 12 HOURS SCHEDULED (2 times per day), First dose on Wed06/02/24 at 0900, Until Discontinued, For Line Patency: Peripheral IV = 5 mL; Midline or Central Line = 10 mL/lumen. If following IV push medication, administer flush at same rate as the IV push. Flush volume is determined by type of infusion therapy being given. For non-viscous solutions use: Peripheral IV = 5 mL Midline or Central Line = 10 mL/lumen For viscous solutions (i.e. blood components, parenteral nutrition, contrast media, or after obtaining blood sample) use: Peripheral IV = 10 mL Midline or Central Line = 20 mL/lumen, Pre-procedure(GI) 0900 (Due)2100 (Due) Continuous Medication Order 05/31/2024 06/01/2024 06/02/2024 lactated ringers infusion IntraVENous, at 75 mL/hr, CONTINUOUS, Starting on Wed06/02/24 at 0700, Pre-procedure(GI) 0700 (Due) PRN Medication Order 05/31/2024 06/01/2024 06/02/2024 0.9 % sodium chloride infusion 25 mL, IntraVENous, at 100 mL/hr, PRN, If patient receiving piggyback infusions without ordered maintenance IV fluids or with frequent/long duration piggyback infusions, Starting on Wed06/02/24 at 0640, Administer at the same rate as the piggyback being infused., Pre-procedure(GI) sodium chloride flush 0.9 % injection 5-40 mL 5-40 mL, IntraVENous, PRN, Starting on Wed06/02/24 at 0640, Until Discontinued, Line Care, After every IV line use, For Line Patency: Peripheral IV = 5 mL; Midline or Central Line = 10 mL/lumen. If following IV push medication, administer flush at same rate as the IV push. Flush volume is determined by type of infusion therapy being given. For non-viscous solutions use: Peripheral IV = 5 mL Midline or Central Line = 10 mL/lumen For viscous solutions (i.e. blood components, parenteral nutrition, contrast media, or after obtaining blood sample) use: Peripheral IV = 10 mL Midline or Central Line = 20 mL/lumen, Pre-procedure(GI) FOR RECORDS PERTAINING TO PATIENTS WHO ARE OR HAVE BEEN ENROLLED IN A CHEMICAL DEPENDENCY/SUBSTANCEABUSE PROGRAM, SOME INFORMATION MAY BE OMITTED. This clinical summary was aggregated from multiple sources. Caution should be exercised in using it in the provision of clinical care. This summary normalizes information from multiple sources, and as a consequence, information in this document may materially change the coding, format and clinical context of patient data. In addition, data may be omitted in some cases. CLINICAL DECISIONS SHOULD BE BASED ON THE PRIMARY CLINICAL RECORDS. [facility]. provides no warranty or guarantee of the accuracy or completeness of information in this document.
[2024-06-09 11:28] LABS: Basophils Absolute Auto 0.1 10^3/uL (0.0-0.1); Basophils Percent Auto 0.9 % (0.2-2.0); Eosinophils Absolute Auto 0.3 10^3/uL (0.0-0.7); Eosinophils Percent Auto 4.5 % (0.9-7.0); Hematocrit 39.2 % (36.0-48.0); Hemoglobin 12.7 g/dL (12.0-16.0); Immature Granulocytes Abs Auto 0.02 10^3/uL (0.00-0.03); Immature Granulocytes Pct Auto 0.3 % (0.0-0.5); Lymphocytes Absolute Auto 2.2 10^3/uL (1.2-3.8); Lymphocytes Percent Auto 32.2 % (20.5-60.0); Mean Corpuscular HGB Conc 32.4 g/dL (29.9-35.2); Mean Corpuscular Hemoglobin 27.9 pg (26.7-34.0); Mean Platelet Volume 10.4 fL (9.5-13.5); Monocytes Absolute Auto 0.6 10^3/uL (0.3-0.8); Monocytes Percent Auto 8.3 % (1.7-12.0); Neutrophils Absolute Auto 3.7 10^3/uL (1.4-6.5); Neutrophils Percent Auto 53.8 % (43.0-75.0); Platelet Count 212 10^3/uL (150-450); Red Blood Count 4.56 10^6/uL (4.20-5.40); Red Cell Distribution Width 12.3 % (11.0-15.0)
[2024-06-12 14:08] LABS: IgG, Subclass 1 629 mg/dL (248-810); IgG, Subclass 2 286 mg/dL (130-555); IgG, Subclass 3 64 mg/dL (15-102); IgG, Subclass 4 74 mg/dL (2-96); Immunoglobulin G, Qn, Serum 1188 mg/dL (586-1602)
[2024-06-13 08:09] LABS: Anti-MPO Antibodies >8.0 units (0.0-0.9); Anti-PR3 Antibodies <0.2 units (0.0-0.9); Cytoplasmic (C-ANCA) <1:20 titer (Neg:<1:20); Perinuclear (P-ANCA) <1:20 titer (Neg:<1:20)
[2024-06-14 04:07] LABS: Immunoglobulin A, Qn, Serum 225 mg/dL (87-352); Immunoglobulin E, Total 290 IU/mL (6-495); Immunoglobulin M, Qn, Serum 109 mg/dL (26-217)
[2024-06-14 18:10] LABS: Aspergillus flavus Negative (Neg:<1:1); Aspergillus fumigatus Negative (Neg:<1:1); Aspergillus niger Negative (Neg:<1:1)
== END 2024-06-09 10:27 | disposition home or self-care (01) ==
PROVIDERS: PCP Family Medicine; Visit Provider Internal Medicine
DX: J45.40 Moderate persistent asthma, uncomplicated (principal); J98.8 Other specified respiratory disorders
CPT/HCPCS: 36415; 82784; 82785; 82787; 83516; 85025; 86037; 86606

== ENCOUNTER 2024-06-28 12:52 | Outpatient (OUT) | payer MEDICARE, SELFPAY ==
--- OUTSIDE RECORDS SUMMARY | 2024-06-28 13:13 | XMS_ITS | CCD ---
Author Organization [facility] ion Partnership [facility] Care Team Providers Care [employer]er Name Role Phone NO, PHYSICIAN Unavailable Unavailable Suzanne Douglas Primary Care Provider [phone] Suzanne Douglas Primary Care Provider German Miranda Unavailable Charline Wilburn Unavailable Anais Farley Unavailable Mary Anne Chan Unavailable SUZANNE DOUGLAS Primary Care Physician [phone] Suzanne Douglas MD Primary Care Provider DR CHIKI MONIQUE Admitting Unavailable MISC, DR ZEPEDA Primary Care Unavailable ENEIDA, DR MONET Consulting Unavailable ENEIDA, DR MONET Attending Unavailable VERHOALIN, DR SUZANNE Rosales Consulting Unavailable VERHOALIN, DR SUZANNE Rosales Attending Unavailable VERHOALIN, DR SUZANNE Rosales Admitting Unavailable Suzanne Douglas MD Primary Care Provider Haider Lopez MD Unavailable Neftaly Mcmanus DO Unavailable [phone] MARY ANNE BABB Attending Unavailalessandra e NEFTALY MCMANUS Attending Unavailable HAIDER LOPEZ Referring Unavailable NEFTALY MCMANUS Attending Unavailable HAIDER LOPEZ Referring Unavailable Suzanne Douglas MD Primary Care Provider Freddy KRAUS Admitting Unavailable Freddy KRAUS Attending Unavailable Freddy KRAUS Referring Unavailable KRAIG ALFORD Attending Unavailable KRAIG ALFORD Referring Unavailable SUZANNE DOUGLAS Primary Care Unavailable BACK, CARLOS Admitting Unavailable BACK, CARLOS Attending Unavailable VERHOFF, SUZANNE L Primary Care Unavailable BACK, CARLOS Referring Unavailable VERHOFF, SUZANNE L Primary Care Unavailable BACK, CARLOS Attending Unavailable BACK, CARLOS Referring Unavailable VERHOFF, SUZANNE L Primary Care Unavailable AMALFITANO, KRAIG Attending Unavailable AMALFITANO, KRAIG Referring Unavailable VERHOFF, SUZANNE L Primary Care Unavailable AMALFITANO, KRAIG Attending Unavailable AMALFITANO, KRAIG Referring Unavailable VERHOFF, SUZANNE L Primary Care Unavailable VERHOFF, SUZANNE L Referring Unavailable VERHOFF, SUZANNE L Primary Care Unavailable AMALFITANO, KRAIG Attending Unavailable AMALFITANO, KRAIG Referring Unavailable VERHOFF, SUZANNE L Primary Care Unavailable AMALFITANO, KRAIG Attending Unavailable AMALFITANO, KRAIG Referring Unavailable VERHOFF, SUZANNE L Primary Care Unavailable VERHOFF, SUZANNE L Attending Unavailable VERHOFF, SUZANNE L Referring Unavailable VERHOFF, SUZANNE L Primary Care Unavailable Allergies Allergy Classification Reported Allergen(s) Allergy Type Date of Onset Reaction(s) Facility (20 sources) Losartan Drug Allergy 4 Swelling, Rash [place], [place] (20 sources) montelukast; Translations: [montelukast] Drug Allergy 1 Rash, hives, Urticaria (disorder) [place], [place] (2 sources) montelukast; Translations: [Singulair] Drug Allergy 1 [facility] Repository Medications Current Medications Medication Drug Class(es) [...] Print Requisition Start Date: 04/21/11 Status: Ordered [id number] 200 actuat albuterol 0.09 mg/actuat metered dose inhaler (20 sources) beta2-Adrenergic Agonist Start: 09-23-2023 Albut clover Sulfate (Proair Hfa) 90 mcg/actuation HFA aerosol inhaler Active 2 INH INHALATION Every 4 hours as needed September 22, 2023 11:00pm Start: 09-06-2021 take 2 puff(s) by in [...] morning 06/02/2024 Discontinued (Stop Taking at Discharge) Apo-Fluticasone Propionate 0.05 mg/inh nasal spray (2 sources) Start: 04-15-2011 take 2 spray(s) nasal route once daily Apo-Fluticasone Propionate 0.05 mg/inh nasal spray 2 SPRAYS EACH NOSTRIL, Nasal, Daily, Refill(s) 0 Start Date: 04/15/11 Status: Ordered ascorbic acid 500 mg chewable tablet (20 sources) Vitamin C take 1 tablet by [...] by mouth once daily Multiple Vitamins-Minerals (THERAPEUTIC MULTIVITAMIN-MINERA LS) tablet Take 1 tablet by mouth daily. [...] Active Start: 08-28-2019 take 1 capsule by mo [facility] three times daily as needed for cough [...] 1 08/16/2018 Active Chondroitin Sulfates / Glucosamine (20 sources) GLUCOSAMINE-ISAIAH DROIT IN PO Take by mouth Active GLUCOSAMINE-ISAIAH DROITIN PO Take by mouth 0 Active cinnamon preparation 500 mg oral tablet (20 sources) Non-Standardized Food Allergenic Extract take 1 [...] afterwards, # 2 tab(s), Refills(s) 0, Pharmacy: [facility]/pharmacy #[id number] Start Date: 06/03/23 Status: Ordered Start: 03-13-2021 Cipro 500 mg T ab See Instructions, Take 1 tab day prior to procedure and 1 tab day of procdure - afterwards, # 2 tab(s), Refills(s) 0, Pharmacy: [facility]/pharmacy #[id number], 165, cm, 04/03/21 14:42:00 EDT, Height/Length Dosing, 105.9, kg, 04/03/21 14:42:00 EDT, Weight Dosing Start Date: 03/24/22 Status: Ordered docosahexaenoic acid 120 mg / eicosapentaenoic acid 180 mg oral capsule (20 sources) take 1 capsule by mouth once daily Boring-3 Fatty Acids (FISH OIL) 1000 MG CAPS Take 1 capsule by mouth daily Active docosahexaenoic acid 1000 mg / omega-3 acid ethyl esters (nursing home) 300 mg delayed release oral capsule (3 sources) Boring-3 Fatty Ac ids (FISH OIL) 1000 MG [...] (20 sources) Proton Pump Inhibitor Start: 04-15-20 End: 09-30-19 24 take 1 capsule by [...] 0 Active glimepiride 4 mg oral tablet (20 sources) Sulfonylurea Start: 12-09-2023 take 1 tablet [...] bromide 0.042 mg/actuat metered dose nasal spray (15 sources) Anticholinergic Start: 10-30-2019 take 2 spray(s) nasal route once daily ipratropium (ATROVENT) 0.06 % nasal spray SPRAY 2 SPRAYS INTO EACH NOSTRIL EVERY DAY 1 Bottle 1 10/30/2019 Active Start: 05-12-2018 Ipratropium Br omide 42 mcg (0.06 %) [place],Non-Aerosol Active 2 PERCENT INTRANASAL Every morning May 12, 2018 12:00am take 2 drop(s) nasal route three times daily as needed Ipratropium [place] 0.06 % 2 drops in each nostril as needed Nasally Three times a day for 90 days Active lisinopril 5 mg oral tablet (20 sources) Angiotensin Converting Enzyme Inhibitor Start: 09-19-2018 take 1 tablet by mouth once daily lisinopril (PRINIVIL;ZESTRIL) 5 MG tablet Take 1 tablet by mouth daily 90 tablet 1 01/10/2024 Active loratadine 10 mg oral tablet (12 sources) Start: 05-12-2018 take 1 tablet by mouth once daily in the morning Loratadine 10 mg Tablet Active 10 MG PO Every morning May 12, 2018 12:00am lovastatin 40 mg oral tablet (20 sources) HMG-CoA Reductase Inhibitor Start: 04-15-2011 take 1 tablet by mouth once daily lovastatin (MEVACOR) 40 MG tablet Take 1 tablet by mouth nightly 90 tablet 1 01/10/2024 Active magnesium sulfate 0.0277 meq/ml / potassium sulfate 0.0374 meq/ml / sodium sulfate 0.257 meq/ml oral solution (3 sources) Start: 05-11-2024 End: 06-02-2024 tekvfr-ztabfuveg-wwt sulfate (SUPREP BOWEL PREP KIT) 17.5-3.13-1.6 GM/177ML [...] 180 tablet 1 07/01/2022 Active Start: 01-04-2019 Metformin 500 mg tablet extended release 24 hr Active 1000 MG PO Every morning January 03, 2019 11:00pm Start: 01-04-2019 take 1000 mg by mout h once daily in the morning Metformin Active 1000 MG PO Every morning January 04, 2019 12:00am Start: 01-03-2019 take 1 tablet by harlan th twice daily metformin 500 mg ER Tab 500 mg = 1 tab(s), Oral, BID Start Date: 01/03/19 Status: Ordered Start: 05-12-2018 End: 01-04-2019 Metformin 750 mg tablet exte nded release 24 hr Discontinued May 12, 2018 12:00am January 04, 2019 6:48am Start: 05-12-2018 End: 01-04-2019 Metformin Discontinued Dece2017 1:00am January 04, 2019 7:48am 24 hr metoprolol succinate 25 mg extended release oral tablet (20 sources) beta-Adrenergic Sb Start: 06-04-2023 take 1 tablet by mouth every twenty-four hours in the morning metoprolol succinate XL (Toprol-XL) 25 MG 24 hr tablet Take 1 tablet by mouth in the morning. 06/04/2023 Active Start: 05-12-2018 take 1 tablet by harlan th once daily metoprolol succinate (TOPROL XL) 25 MG extended release tablet Take 1 tablet by mouth daily 90 tablet 1 01/10/2024 Active Multiple Vitamins-Minerals (THERAPEUTIC MULTIVITAMIN-MINERALS) tablet (5 sources) take 1 tablet by mouth once daily Multiple Vitamins-Minerals (THERAPEUTIC MULTIVITAMIN-MINERALS) tablet Take 1 tablet by mouth daily. 0 Active Multiple Vitamins-Minerals ( ZINC PO) (9 sources) Multiple Vitamin s-Minerals (ZINC PO) Take by mouth Active Multiple Vitamin s-Minerals (ZINC PO) Take by mouth 0 Active Fvpjunyo-Wgo-Vnmc-Fa-Vit K-Lut (Multivitamin Women 50 Plus) 8 mg iron-400 mcg-300 mcg Tablet (3 sources) Start: 03-09-2019 take 1 tablet by mouth once daily Anestgej-Wli-Skik-Fa-Vit K-Lut (Multivitamin Women 50 Plus) 8 mg iron-400 mcg-300 mcg Tablet Active 1 TAB PO Daily March 08, 2019 11:00pm Start: 03-09-2019 take 1 tablet by harlan th once daily Khlkjell-Vhy-Xvgb-Fa-Vit K-Lut (Multivitamin Women 50 Plus) 8 mg iron-400 mcg-300 mcg Tablet Active 1 TAB PO Daily March 09, 2019 12:00am Multivitamins (7 sources) take 1 tablet by mouth once daily Multivitamins 1 tab(s) Orally Daily Active Multivitamins and Minerals (2 sources) Start: 04-15-2011 Multivitamins and Minerals Refill(s) 0 Start Date: 04/15/11 Status: Ordered Boring 8-Nrj-Tzp-Fish Oil (Fish Oil) 300-1,000 mg Capsule,Delayed Release(Dr/Ec) (3 sources) Start: 05-12-2018 take 300-1000 mg by mouth once daily Boring 1-Zvd-Mhk-Fish Oil (Fish Oil) 300-1,000 mg Capsule,Delayed Release(Dr/Ec) Active 1 CAP PO Daily May 12, 2018 12:00am Start: 05-12-2018 take 300-1000 mg by mouth once daily Boring 8-Yrz-Fhs-Fish Oil (Fish Oil) 300-1,000 mg Capsule,Delayed Release(Dr/Ec) Active 1 CAP PO Daily May 12, 2018 1:00am polyethylene glycol 400 4 mg/ml / propylene glycol 3 mg/ml ophthalmic solution (2 sources) polyethyl glycol-propyl glycol 0.4-0.3 % (SYSTANE) 0.4-0.3 % ophthalmic solution 1 drop daily as needed for Dry Eyes 0 Active ProAir HFA 108 (90 Base) MCG/ACT (2 sources) Start: 0 take 1-2 puff(s) by inhalation every four hours as needed ProAir HFA 108 (90 Base) MCG/ACT 1-2 puff as needed Inhalation every 4 hrs Dec, Active triamcinolone acetonide 0.001 mg/mg oral paste (2 sources) Corticosteroid Start: 04-02-201 9 triamcinolone acetonide (KENALOG) 0.1 % paste APPLY A FILM AFTER MEALS AND BEFORE BED 3 08/30/2018 Active VITAMIN D PO (20 sources) VITAMIN D PO Nathan e by mouth daily Active VITAMIN D PO Nathan e by mouth Active VITAMIN D PO Nathan e by mouth 0 Active VITAMIN D PO Nathan e by mouth daily 0 Active vitamin e 180 mg oral capsule (20 sources) Start: 05-12-2018 take 1 capsule by mouth once daily Vitamin E 400 unit Capsule Active 1 CAP PO Daily May 12, 2018 12:00am take 1 capsule by mouth in the [...] tablet Orally Once a day Active Zinc (9 sources) ZINC PO Take by mouth Active zinc gluconate 50 mg oral tablet (8 sources) take 1 tablet by harlan th in the morning zinc gluconate 50 MG tablet Take 50 mg by mouth in the morning. Active Completed/Discontinued Medications Medication Drug Class(es) Dates Sig (Normalized) Sig (Original) amitriptyline hydrochloride 10 mg oral tablet (3 sources) Tricyclic Antidepressant Start: 01-04-2019 End: 09-23-2023 take 1 tablet by mouth once daily at bedtime Amitriptyline 10 mg tablet Discontinued 10 MG PO Daily at bedtime January 03, 2019 11:00pm September 23, 2023 10:14am amoxicillin 875 mg / clavulanate 125 mg oral tablet (2 sources) Penicillin-class Antibacterial Start: 03-09-2024 End: 06-08-2024 take 1 tablet by mouth every twelve hours Amoxicillin-Pot Clavulanate 875-125 mg tablet Discontinued 1 TAB PO Every 12 hours 19 03March 08, 2024 11:00pm June 08, 2024 10:28am 120 actuat budesonide 0.08 mg/actuat / formoterol fumarate 0.0045 mg/actuat metered dose inhaler (3 sources) Corticosteroid, beta2-Adrenergic Agonist Start: 09-30-2023 End: 12-09-2023 take 1 puff(s) by inhalation twice daily Budesonide-Formote rol (Symbicort) 80-4.5 mcg/actuation HFA aerosol inhaler Discontinued 2 PUFF INHALATION Twice daily 10.2 30 September 29, 2023 11:00pm December 09, 2023 9:59am Rinse after use. May substitute with generic budesonide/formote rol or Breyna, whichever is covered by insurance or cheaper for the patient. Dispense #1 inhaler Dexamethasone (6 sources) Corticosteroid Start: 09-06-2021 DEXAMETHASONE Aug, 40 mg Start: 09-06-2021 DEXAMETHASONE Aug, 1 mL docusate sodium 50 mg oral capsule (12 sources) Start: 01-04-2019 End: 09-23-2023 take 1 capsule by mouth once daily Docusate Sodium (Stool Softener) 50 mg Capsule Discontinued 50 MG PO Daily January 03, 2019 11:00pm September 23, 2023 10:14am Start: 01-03-2019 Dulcolax Stool Softener See Instructions, 100 mg Oral as needed, Refills(s) 0 Start Date: 01/03/19 Status: Ordered homatropine methylbromide 0.3 mg/ml / HYDROcodone bitartrate 1 mg/ml oral solution (3 sources) Opioid Agonist, Cholinergic Muscarinic Agonist Start: 05-12-2018 End: 09-23-2023 Hydrocodone-Homatropine 5-1.5 mg/5 mL Syrup Discontinued 1 TSP PO Q6H as needed for Cough May 12, 2018 12:00am September 23, 2023 10:14am methylPREDNISolone 4 mg oral tablet (6 sources) Corticosteroid Start: 03-09-2024 End: 06-08-2024 take 1 tablet by mouth once Methylprednisolone (Medrol (Ronni)) 4 mg tablets,dose pack Discontinued 0 PO per package directions March 08, 2024 11:00pm June 08, 2024 10:28am PO PER PKG DIR for 6 days Start: 05-05-2022 methylPREDNISo lone 4 MG as directed Orally Once a day for 6 days Apr, Active Start: 09-06-2021 methylPREDNISo lone 4 MG as directed Orally Once a day for 6 days Aug, Active Mometasone-Formoterol (Dulera) 100-5 mcg/actuation HFA aerosol inhaler (6 sources) Start: 12-09-2023 End: 06-08-2024 take 1 puff(s) by inhalation twice daily as needed Mometasone-Formoterol (Dulera) 100-5 mcg/actuation HFA aerosol inhaler Discontinued 2 PUFF INHALATION Twice daily as needed December 09, 2023 9:59am June 08, 2024 10:29am Start: 12-09-2023 take 1 puff(s) by in halation twice daily Mometasone-Formoterol (Dulera) 100-5 mcg/actuation HFA aerosol inhaler Active 2 PUFF INHALATION Twice daily December 09, 2023 10:59am Start: 09-30-2023 End: 12-09-2023 take 1 puff(s) by inhalation twice daily Mometasone-Formoterol (Dulera) 100-5 mcg/actuation HFA aerosol inhaler Discontinued 2 PUFF INHALATION Twice daily 3 September 29, 2023 11:00pm December 09, 2023 10:00am Start: 09-30-2023 End: 12-09-2023 take 1 puff(s) by inhalation twice daily Mometasone-Formoterol (Dulera) 100-5 mcg/actuation HFA aerosol inhaler Discontinued 2 PUFF INHALATION Twice daily 3 September 30, 2023 12:00am December 09, 2023 11:00am Bqumamqm-Fci-Hpopdzh Fumarate (Multi Vitamin) 9 mg iron/15 mL Liquid (3 sources) Start: 05-12-2018 End: 03-09-2019 take 1 tablet by mouth once daily Sdccjugm-Qej-Qkrcdcq Fumarate (Multi Vitamin) 9 mg iron/15 mL Liquid Discontinued 1 TAB PO Daily May 12, 2018 12:00am March 09, 2019 7:36am Start: 05-12-2018 End: 03-09-2019 take 1 tablet by mouth once daily Osgoroqf-Jmk-Bjalwhj Fumarate (Multi Vitamin) 9 mg iron/15 mL Liquid Discontinued 1 TAB PO Daily May 12, 2018 1:00am March 09, 2019 8:36am olopatadine 1 mg/ml ophthalmic solution (20 sources) Histamine-1 Receptor Inhibitor Start: 05-12-2018 End: 12-09-2023 take 1 drop(s) into the eye(s) once daily in the morning Olopatadine (Patanol) 0.1 % Drops Discontinued 1 - 2 DROPS EYE-BOTH Every morning May 12, 2018 12:00am December 09, 2023 9:58am Start: 10-28-2012 take 1 drop(s) into the [...] Ophthalmic Twice a day ON HOLD Active perflutren lipid microspheres (DEFINITY) injection 1.5 mL (1 source) Start: 06-22-2024 End: 06-22-2024 take 1.1 mg intravenously once as needed 1.5 mL, IntraVENous, IMG ONCE PRN, 1 dose, Starting on [facility] 06/22/24 at 1238, Until [facility] 06/22/24 at 1239, Other, Once activated, final concentration equals 1.1 mg/mL predniSONE 20 mg oral tablet (5 sources) Start: 09-30-2023 End: 12-09-2023 Prednisone 20 mg tablet Discontinued 20 MG PO As Directed September 29, 2023 11:00pm December 09, 2023 9:58am 3 tabs x 3 days, then 2 tabs x 3 days, then 1 tab x 3 days Start: 09-25-2021 predniSONE 10 MG 4 tablets daily for 3 days, 2 tablets daily for 3 days, 1 tablet daily for 7 days Orally Once a day for 13 days Aug, Active regadenoson (LEXISCAN) injection 0.4 mg (1 source) Start: 06-22-2024 End: 06-22-2024 take 0.4 mg intravenously once as needed 0.4 mg, IntraVENous, IMG ONCE PRN, 1 dose, Starting on Wed06/22/24 at 0837, Until Wed06/22/24 at 1016, Other, Only to be given in Nuclear Med during CARDIAC STRESS TEST ONLY. 5 ml sodium chloride 9 mg/ml injection (4 sources) Start: 06-22-2024 End: 06-22-2024 10 mL, IntraVENous, PRN, Starting on Wed06/22/24 at 0837, Until Wed06/22/24 at 1436, Line Care, FOR USE IN CARDIAC STRESS LAB ONLY., Pre-procedure(Stress) Start: 06-02-2024 5-40 mL, Intra VENous, EVERY [...] as the piggyback being infused., Pre-procedure(GI) Start: 06-02-2024 5-40 mL, Intra VENous, PRN, Starting on [...] or Central Line = 20 mL/lumen, Pre-procedure(GI) technetium sestamibi (CARDIOLITE) injection 10 millicurie (1 source) Start: 06-22-2024 End: 06-22-2024 take 1 dose intravenously once 10 millicurie, IntraVENous, IMG ONCE PRN, 1 dose, Starting on [facility] 06/22/24 at 0956, Until [facility] 06/22/24 at 0957, Other technetium sestamibi (CARDIOLITE) injection 30 millicurie (1 source) Start: 06-22-2024 End: 06-22-2024 take 1 dose intravenously once 30 millicurie, IntraVENous, IMG ONCE PRN, 1 dose, Starting on [facility] 06/22/24 at 0956, Until [facility] 06/22/24 at 0957, Other Vitamin E 400 unit(s) Cap (2 sources) [...] neoplasm 01-03-2019 Episodic Cardiac dysrhythmias (2 sources) Cardiac arrhythmia; Translations: [Cardiac arrhythmia, unspecified] 06-08-2024 Chronic Cardiac dysrhythmias (3 sources) Sinus bradycardia; Translations: [Bradycardia, unspecified] Onset: 06-02-2024 5 Episodic Conduction disorders (3 sources) Sinus node dysfunction; Translations: [Other specified heart block] Onset: 06-02-2024 06-02-2024 Chronic Diabetes mellitus with complications (20 sources) Polyneuropathy due to type 2 diabetes mellitus; Translations: [Type 2 diabetes mellitus with diabetic polyneuropathy] Onset: 07-01-2022 07-09-2023 Chronic Diabetes mellitus without complication (20 sources) Type 2 diabetes mellitus without complication; Translations: [Type 2 diabetes mellitus without complications] Onset: 09-27-2021 Chronic Diseases of white blood cells (12 sources) Familial eosinophilia; 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] Onset: 03-17-2024 Resolved: 03-17-2024 09-30-2023 Chronic Disorders of lipid metabolism (20 sources) Pure hypercholesterolemia; Translations: [Hypercholesterolemia] Onset: 03-14-2011 03-14-2011 Chronic Esophageal disorders (20 sources) Gastroesophageal reflux disease; Translations: [Gastroesophageal reflux disease without esophagitis] Onset: 03-14-2011 03-14-2011 Chronic Essential hypertension (20 sources) Benign essential hypertension; Translations: [Hypertensive disorder] Onset: 03-14-2011 03-14-2011 Chronic Menopausal disorders (18 sources) Postmenopausal bleeding; Translations: [Postmenopausal bleeding] Onset: 06-02-2013 06-02-2013 Chronic Nonspecific chest pain (3 sources) Chest pain; Translations: [Chest pain, unspecified] Onset: 06-22-2024 06-22-2024 Episodic Other lower respiratory disease (6 sources) Chronic cough; Translations: [Cough] Episodic Other lower respiratory disease (1 source) Respiratory tract infection; Translations: [Other specified respiratory disorders] 06-08-2024 Episodic Other lower respiratory disease (1 source) Other specified respiratory disorders; Translations: [Other diseases of respiratory system, not elsewhere classified] 06-08-2024 Episodic Other lower respiratory disease (2 sources) Dyspnea; Translations: [Shortness of breath] 06-22-2024 Episodic Other lower respiratory disease (1 source) Shortness of breath; Translations: [Shortness of breath] Onset: 06-22-2024 Episodic Other nervous system disorders (1 source) Metallic taste; Translations: [Metallic taste] Episodic Other nervous system disorders (1 source) Sensory disorder of smell and/or taste; Translations: [Disturbance of smell and taste] Episodic Other nutritional; endocrine; and metabolic disorders (1 source) Hypercalcemia; Translations: [Hypercalcemia] Chronic Other nutritional; endocrine; and metabolic disorders (9 sources) Body mass index 30+ - obesity; Translations: [Body mass index (BMI) 39.0-39.9, adult] Onset: 03-17-2024 Resolved: 03-17-2024 12-09-2023 Chronic Other nutritional; endocrine; and metabolic disorders (9 sources) Obesity; Translations: [Obesity, unspecified] Onset: 03-17-2024 Resolved: 03-17-2024 09-30-2023 Chronic Other nutritional; endocrine; and metabolic disorders (3 sources) Obesity, unspecified; Translations: [Obesity, unspecified] 09-30-2023 Chronic Other nutritional; endocrine; and metabolic disorders (1 source) Body mass index (BMI) 39.0-39.9, adult; Translations: [Body Mass Index 39.0-39.9, adult] 09-30-2023 Chronic Other nutritional; endocrine; and metabolic disorders (9 sources) Severe obesity; Translations: [Morbid (severe) obesity due to excess calories] Onset: 10-13-2022 10-13-2022 Chronic Other screening for suspected conditions (not mental disorders or infectious disease) (3 sources) Patient encounter status; Translations: [Encounter for screening mammogram for malignant neoplasm of breast] Onset: 05-22-2024 Episodic Other upper respiratory disease (20 sources) Allergic rhinitis; Translations: [Allergic rhinitis, unspecified] Onset: 03-14-2011 02-28-2015 Chronic Other upper respiratory disease (7 sources) Chronic rhinitis; Translations: [Chronic rhinitis] Chronic Other upper respiratory disease (7 sources) Allergic rhinitis due to pollen; Translations: [Allergic rhinitis due to pollen] Chronic Other upper respiratory disease (1 source) Allergic rhinitis due to pollen Chronic Other upper respiratory disease (3 sources) Allergic rhinitis, unspecified; Translations: [Allergic rhinitis, cause unspecified] 09-30-2023 Chronic Other upper respiratory disease (6 sources) Hoarse; Translations: [Dysphonia] Episodic Other upper respiratory disease (6 sources) Singers' nodes; Translations: [Nodules of vocal cords] Episodic Other upper respiratory disease (6 sources) Vocal cord cyst; 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] Episodic Residual codes; unclassified (2 sources) Obstructive sleep apnea syndrome; Translations: [Obstructive sleep apnea (adult) (pediatric)] 06-08-2024 Chronic Residual codes; unclassified (2 sources) Obstructive sleep apnea (adult) (pediatric); Translations: [Obstructive sleep apnea (adult)(pediatric)] Chronic Residual codes; unclassified (1 source) Hypersomnia; Translations: [Hypersomnia, unspecified] 06-08-2024 Chronic Residual codes; unclassified (1 source) Hypersomnia, unspecified; Translations: [Hypersomnia, unspecified] 06-08-2024 Chronic Spondylosis; intervertebral disc disorders; other back problems (9 sources) Degeneration of lumbar intervertebral disc; Translations: [Other intervertebral disc degeneration, lumbar region] Onset: 07-09-2023 07-09-2023 Chronic Unclassified (2 sources) Patient encounter status; Translations: [Visit for screening mammogram] Past or Other Problems Problem Classification Problem Date Documented Da te Episodic/Chronic Cancer of bladder (20 sources) Malignant tumor of vault of bladder; Translations: [Malignant tumor of urinary bladder] Onset: 03-14-2011 Resolved: 10-13-2022 03-14-2011 Chronic Cancer of bladder (8 sources) H/O: malignant neoplasm; Translations: [Personal history of malignant neoplasm of bladder] Onset: 07-13-2023 07-13-2023 Episodic Diabetes mellitus without complication (18 sources) Impaired fasting glycaemia; Translations: [Impaired fasting glucose] Onset: 03-14-2011 Resolved: 04-12-2018 04-12-2018 Episodic Immunizations and screening for infectious disease (1 source) Contact with and (suspected) exposure to other viral communicable diseases Onset: 09-28-2021 Resolved: 09-28-2021 Episodic Nonmalignant breast conditions (18 sources) Red breast; Translations: [Erythematous condition, unspecified] Onset: 08-14-2014 Resolved: 04-12-2018 04-12-2018 Episodic Other and unspecified benign neoplasm (18 sources) History of polyp of colon; Translations: [Personal history of colonic polyps] Onset: 06-02-2013 06-02-2013 Episodic Other nervous system disorders (18 sources) Burning sensation; Translations: [Other disturbances of skin sensation] Onset: 08-14-2014 Resolved: 04-12-2018 04-12-2018 Episodic Other upper respiratory disease (9 sources) Deviated nasal septum; Translations: [Deviated nasal septum] Onset: 07-09-2023 07-09-2023 Episodic Other upper respiratory infections (20 sources) Acute sinusitis; Translations: [Acute laryngitis] Onset: 07-04-2012 07-04-2012 Episodic Unclassified (3 sources) Cough R05.9 Onset: 09-06-2021 Resolved: 09-06-2021 Unclassified (1 source) Persistent cough for 3 weeks or longer R05.3 Onset: 09-28-2021 Resolved: 09-28-2021 Unclassified (9 sources) Onset: 04-12-2024 04-12-2024 Viral infection (1 source) COVID-19 Results Test Name Value Interpretation Reference Range Facility No Panel InformationOrdered By: Bao Vaughn on 06-22-2024 Baseline Diastolic BP 70 mmHg [facility] Work Phone: Baseline HR 72 BPM [facility] Work Phone: Baseline Systolic BP 151 mmHg [facility] Work Phone: Nuc Stress EF 77 % [facility] Work Phone: Stress Diastolic BP 70 mmHg [facility] Work Phone: Stress Estimated Workload 1.0 METS [facility] Work Phone: Stress Peak HR 91 BPM [facility] Work Phone: Stress Percent HR Achieved 60 % [facility] Work Phone: Stress Rate Pressure Product 93337 BPM*mmHg [facility] Work Phone: Stress Systolic BP 151 mmHg [facility] Work Phone: Stress Target HR 152 bpm [facility] Work Phone: TID 1.05 [facility] Work Phone: [facility] Work Phone: No Panel Informationon 06-22 Stress Combined Conclusion: The study is positive for myocardial ischemia. Stress Function: Left ventricular function post-stress is normal. Post-stress ejection fraction is 77%. The stress end diastolic cavity size is normal. Perfusion Comments: Prone images were obtained. Prone imaging was helpful in correcting soft tissue attenuation. LV perfusion is equivocal. Perfusion Defect: There is a mild severity left ventricular stress perfusion defect that is small in size present in the apex segment(s). This defect was visualized during the stress and rest phases of imaging. The defect appears to be ischemia. The possibility of artifact cannot be excluded. Perfusion Conclusion: There is no evidence of transient ischemic dilation (TID). TID ratio is 1.05. Stress Test: A pharmacological stress test was performed using regadenoson (Lexiscan). The patient reported no symptoms during the stress test. The patient reached the end of the protocol. Quality of the study: Adequate but partially limited by soft tissue attenuation artifact. Mildly abnormal myocardial perfusion study, small apical defect of mild intensity most likely consistent with ischemia but cannot rule out artifact. Summed stress score is 3. Gated SPECT showed normal left ventricular cavity size and wall motion. Calculated ejection fraction 77%. No evidence of Overall, these results are most consistent with a low to intermediate risk for significant ischemic heart disease. Depending on the patient symptoms and level of clinical suspicion, aggressive medical management vs. additional testing by coronary angiography may be indicated. The sensitivity for detecting ischemia on this test may have been reduced due the patient being on a beta sb Stress Findings A pharmacological stress test was performed using regadenoson (Lexiscan). The patient reported no symptoms during the stress test. The patient reached the end of the protocol. Nuclear Study Quality Nuclear Cardiac SPECT rest then gated stress with tomographic imaging/tomography utilized for the myocardial perfusion procedure. Lexiscan was used as the stressing method and agent. (Lexiscan given via a 10 - 20 sec injection). One day myocardial perfusion study (06/22/2024). This Single Photon Emission Computer Tomography (SPECT) study utilized tomographic imaging/tomography for the tomographic myocardial perfusion imaging performed during this study. Perfusion Comments Prone images were obtained. Prone imaging was helpful in correcting soft tissue attenuation. LV perfusion is equivocal. Perfusion Defect There is a mild severity left ventricular stress perfusion defect that is small in size present in the apex segment(s). This defect was visualized during the stress and rest phases of imaging. The defect appears to be ischemia. The possibility of artifact cannot be excluded. Perfusion Defect Conclusion There is no evidence of transient ischemic dilation (TID). TID ratio is 1.05. Stress Function Comments Left ventricular function post-stress is normal. Post-stress ejection fraction is 77%. The stress end diastolic cavity size is normal. Stress Combined Conclusion The study is positive for myocardial ischemia. [facility] CV [facility] STRESS Radiology Study observation (narrative) [employer] Reminderson 06-19-2024 Reminders Reminders -- From: Jodi Fisher To: EU - Recalls Cook; Sent: 07/07/2023 11:29:44 EST Show up: 06/05/2024 11:29:00 EST Subject: Recall: Scope 07/2024 Due Date/Time: 06/05/2024 11:29:00 EST Reminder/Recall Schedule repeat testing. Test: Cystoscopy (FISH/Cytol) Test due in: 12 months Left message requesting pt to call office Pt is scheduled Normal [facility] Basic Metabolic Panelon Anion gap [Moles/Vol] 11 mmol/L 9 - 17 mmol/L [facility] Calcium [Mass/Vol] 9.5 mg/dL 8.6 - 10. 4 mg/dL [facility] Chloride [Moles/Vol] 100 mmol/L 98 - 10 7 mmol/L [facility] CO2 [Moles/Vol] 26 mmol/L 20 - 31 mmol/L [facility] Creatinine [Mass/Vol] 0.7 mg/dL 0.5 - 0.9 mg/dL [facility] EstJessica Rate - PIN[facility] Comment on above: These results are not [...] 185 mg/dL High 70 - 99 mg/dL [facility] Interpretation and review of laboratory results Abnormal [facility] Potassium [Moles/Vol] 3.8 mmol/L 3.7 - 5.3 mmol/L [facility] Sodium [Moles/Vol] 137 mmol/L 135 - 144 mmol/L [facility] Urea nitrogen [Mass/Vol] 18 mg/dL 8 - 23 mg/dL [facility] Urea nitrogen/Creatinine [Mass ratio] 26 mg/mg High 9 - 20 [facility] Basic Metabolic Profon 06-02 Anion gap [Moles/Vol] 11 mmol/L Normal 9-[address] [facility] Comment on above: Performed By: #### M Allie BMP, TROPI #### [facility] [address] [place], [place] [id number] [employer] Specialist: Naldo Tinsley MD BUN/CRE Ratio 26 High - [facility] Comment on above: Performed By: #### M AGUSTÍN Kelley, TROPI #### [facility] [address] [place], [place] [id number] [employer] Specialist: Naldo Tinsley MD Calcium [Mass/Vol] 9.5 mg/dL Normal 8.6-10.4 [facility] Comment on above: Performed By: #### M Allie, BMP, TROPI #### [facility] [address] [place], [place] [id number] [employer] Specialist: Naldo Tinsley MD Chloride [Moles/Vol] 100 mmol/L Normal 98-107 [facility] Comment on above: Performed By: #### M Allie, BMP, TROPI #### [facility] [address] [place], [place] [id number] [employer] Specialist: Naldo Tinsley MD CO2 [Moles/Vol] 26 mmol/L Normal 20-31 [facility] Comment on above: Performed By: #### M Allie, BMP, TROPI #### [facility] [address] [place], [place] [id number] [employer] Specialist: Naldo Tinsley MD Creatinine [Mass/Vol] 0.7 mg/dL Normal 0.5-0.[address] [facility] Comment on above: Performed By: #### AGUSTÍN Navarrete TROPI #### [facility] [address] [place] [address] [employer]ist: Naldo Tinsley MD GFR/1.73 sq M.predicted among non-blacks MDRD (S/P/Bld) [Vol rate/Area] mL/min/{1.73_m2} Normal >60 [facility] Comment on above: Result Comment: These results [...] affects renal tubular secretion. Performed By: #### AGUSTÍN Navarrete TROPI #### [facility] [address] [place] [address] [employer]ist: Naldo Tinsley MD Glucose [Mass/Vol] 185 mg/dL High 70-99 [facility] Comment on above: Performed By: #### AGUSTÍN Navarrete TROPI #### [facility] [address] [place] [address] [employer] Specialist: Naldo Tinsley MD Potassium [Moles/Vol] 3.8 mmol/L Normal 3.7-5.[address] [facility] Comment on above: Performed By: #### AGUSTÍN Navarrete, TROPI #### [facility] [address] [place] [address] [employer]ist: Naldo Tinsley MD Sodium [Moles/Vol] 137 mmol/L Normal 135-144 [facility] Comment on above: Performed By: #### AGUSTÍN Navarrete, TROPI #### [facility] [address] [place] [address] [employer]ist: Naldo Tinsley MD Urea nitrogen [Mass/Vol] 18 mg/dL Normal 8-23 [facility] Comment on above: Performed By: #### AGUSTÍN Navarrete, TROPI #### [facility] [address] [place] [address] [employer]ist: Naldo Tinsley MD Magnesiumon 06-02-2024 Magnesium [Mass/Vol] 1.8 mg/dL 1.6 - 2 .6 mg/dL [facility] Magnesium [Mass/Vol] 1.8 mg/dL Normal 1.6-2.6 [facility] Comment on above: Performed By: #### AGUSTÍN Navarrete, TROPI #### [facility] [address] [place] [address] [employer]ist: Naldo Tinsley MD No Panel Informationon 06-02 [facility] Troponinon 06-02-2024 Troponin I.cardiac High sensitivity method [Mass/Vol] 13 ng/L 0 - 14 ng/L [facility] Comment on above: High Sensitivity Tro ponin values cannot be compared with other Troponin methodologies. [facility] Troponin, High Sens 13 ng/L Normal 0-14 [facility] Comment on above: Result Comment: High Sensitivity Troponin values cannot be compared with other Troponin methodologies. Performed By: #### AGUSTÍN Navarrete, TROPI #### [facility] [address] [place] [address] [employer]ist: Naldo Tinsley MD DBT Breast - bilateral scree nagin 05-23-2024 OVERALL ASSESSMENT: BIRADS: 1 Negative, no evidence of malignancy. A letter of notification will be mailed to the patient. Performing Facility: [facility] [address] [place] [address] [facility] RIS CONSOLIDATED HISTORY: Screening. Family history [...] linear markers represent scars.) PN RIS CONSOLIDATED DBT Breast - bilateral scree Rosalesrdered By: Mehul Doyle on 05-23-2024 [facility] Work Phone: [facility] RENEE DIGITAL SCREEN AYESHA Scott 05-23-2024 THIERNO RENEE DIGITAL SCREEN BILATERAL HISTORY: Screening. Family [...] be mailed to the patient. Performing Facility: [facility] [address] [place], [place] [address] Interpreted by: Mehul Doyle Jr., MD Signed by: Mehul Doyle Jr., MD 05/23/24 Final result Normal [facility] DBT Breast - bilateral kenny manuel 05-22-2024 Radiology Study observation (narrative) [facility] Comp Metabolic Profon 2023 Albumin [Mass/Vol] 3.9 g/dL Normal 3.5-5.2 [facility] Comment on above: Performed By: #### C P #### [facility] [address] [place] [address] [employer]ist: Naldo Tinsley MD #### LIPR, GLYHGB #### [facility] [employer] [address] [place] [address] [employer] Specialist: Nelson Mckenzie MD Alkaline Phos 59 U/L Normal 35-104 [facility] Comment on above: Performed By: #### C P #### [facility] [address] [place] [address] [employer]ist: Naldo Tinsley MD #### LIPMatt GLYHGB #### [facility] [address] [place] [address] [employer]ist: Nelson Mckenzie MD ALT [Catalytic activity/Vol] 21 U/L Normal 5-33 [facility] Comment on above: Performed By: #### C P #### [facility] [address] [place] [address] [employer] Specialist: Naldo Tinsley MD #### MIKE GLYHGB #### [id number] [place] [address] [employer]ist: Nelson Mckenzie MD Anion gap [Moles/Vol] 12 mmol/L Normal 9-[address] [facility] Comment on above: Performed By: #### C P #### [facility] [address] [place] [address] [employer] Specialist: Naldo Tinsley MD #### MIKE GLYHGB #### [facility] [address] [place] [address] [employer] Specialist: Nelson Mckenzie MD AST [Catalytic activity/Vol] 23 U/L Normal <32 [facility] Comment on above: Performed By: #### C P #### [facility] [address] [place] [address] [employer] Specialist: Naldo Tinsley MD #### LIPR, GLYHGB #### [facility] [address] [place] [address] [employer] Specialist: Nelson Mckenzie MD Bilirubin [Mass/Vol] 0.6 mg/dL Normal 0.3-1.2 [facility] Comment on above: Performed By: #### C P #### [facility] [address] [place], [place] [phone] [employer] Specialist: Naldo Tinsley MD #### LIPR, GLYHGB #### [address] [id number] [employer]ist: Nelson Mckenzie MD BUN/CRE Ratio 30 High 9-20 [facility] Comment on above: Performed By: #### C P #### [facility] [address] [place], [place] [address] [employer] Specialist: Naldo Tinsley MD #### LIPR, GLYHGB #### [address] [id number] [employer]ist: Nelson Mckenzie MD Calcium [Mass/Vol] 9.7 mg/dL Normal 8.6-10.4 [facility] Comment on above: Performed By: #### C P #### [facility] [address] [place] [address] [employer] Specialist: Naldo Tinsley MD #### LIPR, GLYHGB #### [address] [address] [employer]ist: Nelson Mckenzie MD Chloride [Moles/Vol] 98 mmol/L Normal 98-107 [facility] Comment on above: Performed By: #### C P #### [facility] [address] [place], [place] [id number] [employer] Specialist: Naldo Tinsley MD #### LIPR, GLYHGB #### [address] [address] [employer] Specialist: Nelson Mckenzie MD CO2 [Moles/Vol] 25 mmol/L Normal 20-31 [facility] Comment on above: Performed By: #### C P #### [facility] [address] [place], [place] [id number] [employer] Specialist: Naldo Tinsley MD #### LIPR, GLYHGB #### [facility] [employer] [address] [place] [address] [employer]ist: Nelson Mckenzie MD Creatinine [Mass/Vol] 0.7 mg/dL Normal 0.5-0.[address] [facility] Comment on above: Performed By: #### C P #### [facility] [address] [place], [place] 4485[address] [employer] Specialist: Naldo Tinsley MD #### LIPR, GLYHGB #### [address] [address] [employer]ist: Nelson Mckenzie MD GFR/1.73 sq M.predicted among non-blacks MDRD (S/P/Bld) [Vol rate/Area] mL/min/{1.73_m2} Normal >60 [facility] Comment on above: Result Comment: These results [...] secretion. Performed By: #### C P #### [facility] [address] [place], [place] [id number] [employer] Specialist: Naldo Tinsley MD #### LIPMatt, GLYHGB #### [address] [address] [employer]ist: Nelson Mckenzie MD Glucose [Mass/Vol] 138 mg/dL High 70-99 [facility] Comment on above: Performed By: #### C P #### [facility] [address] [place] [address] [employer]ist: Naldo Tinsley MD #### LIPMatt, GLYHGB #### [address] [id number] [employer]ist: Nelson Mckenzie MD Potassium [Moles/Vol] 4.3 mmol/L Normal 3.7-5.[address] [facility] Comment on above: Performed By: #### C P #### [facility] [address] [place], [place] 0[address] [employer]ist: Naldo Tinsley MD #### LIPMatt GLYHGB #### [address] [id number] [employer]ist: Nelson Mckenzie MD Protein [Mass/Vol] 7.1 g/dL Normal 6.4-8.3 [facility] Comment on above: Performed By: #### C P #### [facility] [address] [place], [place] [address] [employer] Specialist: Naldo Tinsley MD #### MIKE GLYHGB #### [address] [place] [address] [employer]ist: Nelson Mckenzie MD Sodium [Moles/Vol] 135 mmol/L Normal 135-144 [facility] Comment on above: Performed By: #### C P #### [facility] [address] [place], [place] 0[address] [employer] Specialist: Naldo Tinsley MD #### MIKE GLYHGB #### [address] [address] [employer]ist: Nelson Mckenzie MD Urea nitrogen [Mass/Vol] 21 mg/dL Normal 8-23 [facility] Comment on above: Performed By: #### C P #### [facility] [address] [place], [place] 03[address] [employer] Specialist: Naldo Tinsley MD #### LIPR, GLYHGB #### [address] [id number] [employer]ist: Nelson Mckenzie MD Hemoglobin A1Con 10-04-2023 Glucose [Mass/Vol] 243 mg/dL Normal [facility] Comment on above: Result Comment: The ADA and AACC recommend providing the estimated average glucose result to permit better patient understanding of their HBA1c result. Performed By: #### C P #### [facility] [address] [place], [place] 494[address] [employer]ist: Naldo Tinsley MD #### LIPR GLYHGB #### [address] [id number] [employer]ist: Nelson Mckenzie MD HbA1c (Bld) [Mass fraction] 10.1 % High 4.0-6.0 [facility] Comment on above: Performed By: #### C P #### [facility] [address] [place], [place] 7[address] [employer]ist: Naldo Tinsley MD #### LIPMatt GLYHGB #### [facility] [address] [place], [place] 285[address] [employer]ist: Nelson Mckenzie MD Lipid Profileon 10-04-2023 Cholesterol [Mass/Vol] 181 mg/dL Normal 0-199 [facility] Comment on above: Result Comment: Cholesterol Guidelines: <200 Desirable 200-240 Borderline >240 Undesirable Performed By: #### C P #### [facility] [address] [place], [place] [address] [employer]ist: Naldo Tinsley MD #### LIPR, GLYHGB #### [facility] [address] [place], [place] [address] [employer]ist: Nelson Mckenzie MD Cholesterol in HDL [Mass/Vol] 68 mg/dL Normal >40 [facility] Comment on above: Result Comment: HDL Guidelines: <40 Undesirable 40-59 Borderline >59 Desirable Performed By: #### C P #### [facility] [address] [place], [place] 1456290 [employer] Specialist: Naldo Tinsley MD #### LIPR, GLYHGB #### [facility] [employer] [facility] [place] [address] [employer] Specialist: Nelson Mckenzie MD Cholesterol in LDL [Mass/Vol] 82 mg/dL Normal 0-100 [facility] Comment on above: Result Comment: LDL Guidelines: <100 Desirable 100-129 Near to/above Desirable 130-159 Borderline >159 Undesirable Direct (measured) LDL and calculated LDL are not interchangeable tests. Performed By: #### C P #### [facility] [address] [place] [address] [employer]ist: Naldo Tinsley MD #### LIPMatt, GLYHGB #### [address] [address] [employer]ist: Nelson Mckenzie MD Cholesterol in VLDL [Mass/Vol] 32 mg/dL Normal [facility] Comment on above: Performed By: #### C P #### [facility] [address] [place] [address] [employer]ist: Naldo Tinsley MD #### LIPR, GLYHGB #### [address] [address] [employer]ist: Nelson Mckenzie MD Cholesterol.total/Chol esterol in HDL [Mass ratio] 3.0 {ratio} Normal [facility] Comment on above: Performed By: #### C P #### [facility] [address] [place] [address] [employer] Specialist: Naldo Tinsley MD #### LIPR, GLYHGB #### [address] [place] [address] [employer]ist: Nelson Mckenzie MD Triglyceride [Mass/Vol] 159 mg/dL High <150 [facility] Comment on above: Result Comment: Triglyceride Guidelines: <150 Desirable 150-199 Borderline 200-499 High >499 Very high Based on AHA Guidelines for fasting triglyceride, February 2012. Performed By: #### C P #### [facility] [address] [place] [address] [employer]ist: Naldo Tinsley MD #### LIPR, GLYHGB #### [address] [address] [employer]ist: Nelson Mckenzie MD Microalb.,Random Uron 2023 Creatinine [Mass/Vol] 36.4 mg/dL Normal 28.0-217.[address] [facility] Comment on above: Performed By: #### U RNMAB #### [address] [address] [employer]ist: Nelson Mckenzie MD Microalb/Creat Ratio Can not be calculated Normal <25 [facility] Comment on above: Performed By: #### U RNMAB #### [address] [address] [employer]ist: Nelson Mckenzie MD Microalbumin conc. <12 Normal <21 [facility] Comment on above: Performed By: #### U RNMAB #### [address] [address] [employer]ist: Nelson Mckenzie MD [facility] Fish and Urine Cyt o ([facility])on 07-12-2023 UVFISH & UC Diagnosis Info Invalid Interpretation Code [facility] Comment on above: Result Comment: A:Ur ine,Urine:Voided [...] correlated with cytology and cystoscopy results.* CPT 83778, 80834. 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 Electronically signed by : on: 07/12/2023 12:28:58 Performed By: #### 1 [id number] #### [facility] [address] [place] [id number] Consent for Procedure/Surger yon 07-05-2023 Consent for Procedure/Surgery [id number] [id number] Normal [facility] Consent for Treatmenton Consent for Treatment [id number] 89#[id number] Normal [facility] Inpatient Patient Summaryon 07-05-2023 Inpatient Patient Summary [address] [address] Clinical Summary Person Information Name: KATHRYN GIORDANO Age: 68 Years : 1955 Sex: Female PCP: SUZANNE DOUGLAS MD Marital Status: Race: White Ethnicity: Non- or Language: Filipino Visit Id: Visit Reason: BLADDER CANCER Speciality: Acuity: Enc Type: Outpatient Med Service: Surgery Arrival: 07/05/2023 15:17:52 Discharge: Dispo Type: Address: [address] [place] [address] [place] [id number] Provider Notes: Diagnosis: Problems Active History of [...] Follow up: With: Address: When: Freddy KRAUS [address] [facility] [facility] [facility], [address], [place] [address] [facility] (1) Comments: As we discussed, your bladder looks good. Evidence of prior scars. The plan will be for a repeat scope in about 1 year provided the FISH test is negative. Please finish your antibiotic. Have a great day. Patient Education Information: EU - Cystoscopy Discharge Instructions (Custom) [facility] IntraOperative Documentson 0 07-05-2023 IntraOperative Documents [id number] [id number] [facility] Main OR Intraoperative Recor don 07-05-2023 Main OR Intraoperative Record IntraOp Document Type FTURO Summary Primary Physician: Freddy KRAUS MD Finalized Date/Time: 07/05/23 16:15:35 Pt. Name: KATHRYN GIORDANO Julieth Harrell/Sex: 1955 Female Med Rec #: [id number] Physician: Freddy KRAUS MD Financial #: [id number] Pt. Type: O Room/Bed: / Admit/Disch: 07/05/23 [...] Kendall R Role Performed Surgeon - Primary Specimen Collector - Primary Scrub - Primary Time In [...] Position Verified Availability Equipment, Medication Time Out Freddy KRAUS MD, Verified (If Participants Eliza Jose, Applicable) Jr Ayala Time Out Complete 07/05/23 16:08:00 Allergies Reviewed? Yes Allergies Reviewed Self/Patient With Body Position Low Lithotomy Prep Area VAGINA Prep Agents Betadine Solution Skin. Condition Intact, [place], Warm, and Dry Additional FISH Specimens Collected [...] By: Eliza Jose 07/05/23 16:15 Eliza Jose E 07/05/23 16:15 Normal [facility] Main OR Preoperative Recordo n 07-05-2023 Main OR Preoperative Record Holding Area Document Type FTURO Summary Primary Physician: Freddy KRAUS MD Finalized Date/Time: 07/05/23 15:53:59 Pt. Name: KATHRYN GIORDANO /Sex: 1955 Female Med Rec #: [id number] Physician: Freddy KRAUS MD Financial #: [id number] Pt. Type: O Room/Bed: / Admit/Disch: 07/05/23 [...] 16 br/min SPO2 97 % Additional JUDAH RN Reviewed Yes Specimens Collected Last Modified By: CHARITY De Leon RN, Ruthann 07/05/23 15:50:59 Finalized By: CHARITY De Leon RN, Ruthann Document Signatures Signed By: CHARITY De Leon RN, Ruthann 07/05/23 15:51 CHARITY De Leon RN, Ruthann 07/05/23 15:53 Normal [facility] Operative Reporton Operative Report Patient: KATHRYN GIORDANO Age: 68 years Sex: Female : 1955 Associated Diagnoses: None Author: Freddy KRAUS MD Procedure Operative Information Details: Date/ Time: 07/05/2023 16:15:00. 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 Post-Op Dx: Same. Anesthesia [...] FISH test and cytology are negative.. Normal [facility] Comment on above: Result Comment: Elec tronically Signed By: Freddy KRAUS MD\.br\Date and Time Signed: 07/05/23 16:16 EST Outpatient Surgery Discharge Instructionon 07-05-2023 Outpatient Surgery Discharge Instruction [address] [address] Patient Discharge Instructions PERSON INFORMATION Name: KATHRYN [...] With: Address: When: Freddy ROSA, [address], [facility] [address] [id number] Business (1) Comments: As we discussed, your [...] you have a fever over 100 degrees. DELVIN Healy KAREN A, have received the attached patient [...] to serve you. Thank you for choosing [facility] Normal [facility] Fish and Urine Cyt o ([facility])on 07-05-2023 [facility] Method of Extraction Voided Normal [facility] Comment on above: Performed By: #### 1 [id number] #### [facility] Laboratory [address] [place] [address] [facility] Number of Jars 1 Invalid Interpretation Code [facility] Comment on above: Performed By: #### 1 [id number] #### [facility] [address] [place] [address] [facility] Specimen Urine Normal [facility] Comment on above: Performed By: #### 1 [id number] #### [facility] [address] [place] [address] [facility] Type of Service Technical Only Normal [facility] Comment on above: Performed By: #### 1 [id number] #### [facility] [address] [place] [address] AMYLASEon 07-08-2022 Amylase [Catalytic activity/Vol] 32 U/L Normal 25-115 [facility] Comment on above: Performed By: #### A MY, CMP, LIPA #### [facility] [address] [place] [address] Dr. Navi Day CBC AUTO DIFFon 07-08-2022 BASO # 0.0 103/ul Normal 0.0-0.1 [facility] Comment on above: Performed By: #### C BC #### [facility] [address] [place] [address] Dr. Navi Day Basophils/100 WBC (Bld) 0.3 % Normal 0.2-2.0 [facility] Comment on above: Performed By: #### C BC #### [facility] [address] [place] [address] Dr. Navi Day EO # 0.0 103/ul Normal 0.0-0.7 [facility] Comment on above: Performed By: #### C BC #### [facility] [address] [place] [address] Dr. Navi Day Eosinophils/100 WBC (Bld) 0.6 % Critically low 0.9-7.0 [facility] Comment on above: Performed By: #### C BC #### [facility] [address] [place] [address] Dr. Navi Day Erythrocyte distribution width (RBC) [Ratio] 12.7 % Normal 11.0-15.0 [facility] Comment on above: Performed By: #### C BC #### [facility] [address] [place] [address] Dr. Navi Day Hematocrit (Bld) [Volume fraction] 42.2 % Normal 36.0-48.0 [facility] Comment on above: Performed By: #### C BC #### [facility] [address] [place] [address] Dr. Navi Day Hemoglobin (Bld) [Mass/Vol] 14.2 g/dL Normal 12.0-16.0 [facility] Comment on above: Performed By: #### C BC #### [facility] [address] [place] [address] Dr. Navi Day IG # 0.03 10e3/ul Normal 0.00-0.03 [facility] Comment on above: Performed By: #### C BC #### [facility] [address] [place] [address] Dr. Navi Day IG % 0.5 % Normal 0.0-0.5 [facility] Comment on above: Performed By: #### C BC #### [facility] [address] [place] [address] Dr. Navi Day LYMPH # 0.8 103/ul Critically low 1.2-3.8 [facility] Comment on above: Performed By: #### C BC #### [facility] [address] [place] [address] Dr. Navi Day Lymphocytes/100 WBC (Bld) 12.6 % Critically low 20.5-60.0 [facility] Comment on above: Performed By: #### C BC #### [facility] [address] [place] [address] Dr. Navi Day MANUAL DIFF REQ NO Normal [facility] Comment on above: Performed By: #### C BC #### [facility] [address] [place] [address] Dr. Navi Day MCH (RBC) [Entitic mass] 27.8 pg Normal 26.7-34.0 [facility] Comment on above: Performed By: #### C BC #### [facility] [address] [place] [address] Dr. Navi Day MCHC (RBC) [Mass/Vol] 33.6 g/dL Normal 29.9-35.2 [facility] Comment on above: Performed By: #### C BC #### [facility] [address] [place] [address] Dr. Navi Day MCV (RBC) [Entitic vol] 82.6 fL Normal 81.0-99.0 [facility] Comment on above: Performed By: #### C BC #### [facility] [address] [place] [address] Dr. Navi Day MONO # 0.5 103/ul Normal 0.3-0.8 [facility] Comment on above: Performed By: #### C BC #### [facility] [address] [place] [address] Dr. Navi Day Monocytes/100 WBC (Bld) 7.6 % Normal 1.7-12.0 [facility] Comment on above: Performed By: #### C BC #### [facility] [address] [place] [address] Dr. Nvai Day NEUT # 5.0 103/ul Normal 1.4-6.5 [facility] Comment on above: Performed By: #### C BC #### [facility] [address] [place] [address] Dr. Navi Day Neutrophils/100 WBC (Bld) 78.4 % Critically high 43.0-75.0 [facility] Comment on above: Performed By: #### C BC #### [facility] [address] [place] [address] Dr. Navi Day Platelet mean volume (Bld) [Entitic vol] 10.2 fL Normal 9.5-13.5 [facility] Comment on above: Performed By: #### C BC #### [facility] [address] [place] [address] Dr. Navi Day PLT 243 103/ul Normal 150-450 [facility] Comment on above: Performed By: #### C BC #### [facility] [address] [place] [address] Dr. Navi Day RBC 5.11 106/ul Normal 4.20-5.40 [facility] Comment on above: Performed By: #### C BC #### [facility] [address] [place] [address] Dr. Navi Day WBC 6.4 103/ul Normal 4.0-11.0 [facility] Comment on above: Performed By: #### C BC #### [facility] [address] [place] [address] ABD/PELV W CONon [...] by: Lisandra CAMERON Date: 2022-07-08 21:04 Normal [facility] ER URINE PROFILEon 3 Bilirubin Ql (U) Negative Normal NEGATIVE [facility] Comment on above: Performed By: #### E RUR #### [facility] [address] [place] [address] Dr. Navi Day Clarity (U) CLEAR Normal CLEAR [facility] Comment on above: Performed By: #### E RUR #### [facility] [address] [place] [address] Dr. Navi Day Color (U) YELLOW Normal YELLOW [facility] Comment on above: Performed By: #### E RUR #### [facility] [address] [place] [address] Dr. Navi PATRICIO A micrscopic examination will be performed if indicated. Normal [facility] Comment on above: Performed By: #### E RUR #### [facility] [address] [place] [address] Dr. Navi Day Glucose Ql (U) Negative Normal NEGATIVE The [facility] Comment on above: Performed By: #### E RUR #### [facility] [address] [place] [address] Dr. Navi Day Hemoglobin Ql (U) Negative Normal NEGATIVE The [facility] Comment on above: Performed By: #### E RUR #### [facility] [address] [place] [address] Dr. Navi Day Ketones Ql (U) 15 mg/dl Abnormal NEGATIVE [facility] Comment on above: Performed By: #### E RUR #### [facility] [address] [place] [address] Dr. Navi Day LEUKOCYTES TRACE Abnormal NEGATIVE [facility] Comment on above: Performed By: #### E RUR #### [facility] [address] [place] [address] Dr. Navi Day Nitrite Ql (U) Negative Normal NEGATIVE [facility] Comment on above: Performed By: #### E RUR #### [facility] [address] [place] [address] Dr. Navi Day pH (U) 6.0 [pH] Normal 5-9 [facility] Comment on above: Performed By: #### E RUR #### [facility] [address] [place] [address] Dr. Navi Day SPEC GRAVITY 1.010 Normal 1.005-<=1.02 5 [facility] Comment on above: Performed By: #### E RUR #### [facility] [address] [place] [address] Dr. Navi Day UA PROTEIN Negative Normal NEGATIVE/ TRACE [facility] Comment on above: Performed By: #### E RUR #### [facility] [address] [place] [address] Dr. Navi Day UR MICRO IND NOT INDICATED Normal [facility] Comment on above: Performed By: #### E RUR #### [facility] [address] [place] [address] Dr. Navi Day Urobilinogen Qn (U) 0.2 {Claire'U}/dL Normal 0.2 - 1. 0 [facility] Comment on above: Performed By: #### E RUR #### [facility] [address] [place] [address] Dr. Navi Day LIPASEon 07-08-2022 Lipase [Catalytic activity/Vol] 105.0 U/L Normal 73.0-393.0 [facility] Comment on above: Performed By: #### A MY, CMP, LIPA #### [facility] [address] [address] [address] Navi Day PROF 14(COMP METB)on 023 Albumin [Mass/Vol] 3.1 g/dL Critically low 3.4-5.0 [facility] Comment on above: Performed By: #### A MY, CMP, LIPA #### [facility] [address] [address] [address] Navi Day Albumin/Globulin [Mass ratio] 0.8 {ratio} Normal [facility] Comment on above: Performed By: #### A MY, CMP, LIPA #### [facility] [address] [place] [address] Dr. Navi Day ALP [Catalytic activity/Vol] 58 U/L Normal 46-116 [facility] Comment on above: Performed By: #### A MY, CMP, LIPA #### [facility] [address] [address] [address] Navi Day ALT [Catalytic activity/Vol] 22 U/L Normal 14-59 [facility] Comment on above: Performed By: #### A MY, CMP, LIPA #### [facility] [address] [place] [address] Dr. Navi Day Anion gap [Moles/Vol] 12.5 mmol/L Normal [facility] Comment on above: Performed By: #### A MY, CMP, LIPA #### [facility] [address] [place] [address] Dr. Navi Day AST [Catalytic activity/Vol] 23 U/L Normal 15-37 [facility] Comment on above: Performed By: #### A MY, CMP, LIPA #### [facility] [address] [place] [address] Dr. Navi Day Bilirubin [Mass/Vol] 0.5 mg/dL Normal 0.2-1.0 [facility] Comment on above: Performed By: #### A MY, CMP, LIPA #### [facility] [address] [address] [address] Navi Day Calcium [Mass/Vol] 9.0 mg/dL Normal 8.5-10.1 [facility] Comment on above: Performed By: #### A MY, CMP, LIPA #### [facility] [address] [address] [address] Navi Day Chloride [Moles/Vol] 100 mmol/L Normal 98-107 [facility] Comment on above: Performed By: #### A MY, CMP, LIPA #### [facility] [address] [address] [address] Navi Day CO2 [Moles/Vol] 27.0 mmol/L Normal 21.0-32.0 [facility] Comment on above: Performed By: #### A MY, CMP, LIPA #### [facility] [address] [place] [address] Dr. Navi Day Creatinine [Mass/Vol] 0.79 mg/dL Normal 0.55-1.02 [facility] Comment on above: Performed By: #### A MY, CMP, LIPA #### [facility] [address] [place] [address] Dr. Navi Day EGFR-AF COMORAN >60 Normal >=60 [facility] Comment on above: Performed By: #### A MY, CMP, LIPA #### [facility] [address] [place] [address] Dr. Navi Day EGFR-NON AF COMORAN >60 Normal >=60 [facility] Comment on above: Performed By: #### A MY, CMP, LIPA #### [facility] [address] [place] [address] Dr. Navi Day Globulin (S) [Mass/Vol] 3.8 g/dL Normal [facility] Comment on above: Performed By: #### A MY, CMP, LIPA #### [facility] [address] [place] [address] Dr. Navi Day Glucose [Mass/Vol] 168 mg/dL Critically high 74-[address] [facility] Comment on above: Performed By: #### A MY, CMP, LIPA #### [facility] [address] [address] [address] Navi Day Potassium [Moles/Vol] 3.5 mmol/L Normal 3.5-5.1 [facility] Comment on above: Performed By: #### A MY, CMP, LIPA #### [facility] [address] [place] [address] Dr. Navi Day Protein [Mass/Vol] 6.9 g/dL Normal 6.4-8.2 [facility] Comment on above: Performed By: #### A MY, CMP, LIPA #### [facility] [address] [address] [address] Navi Day Sodium [Moles/Vol] 136 mmol/L Normal 136-145 [facility] Comment on above: Performed By: #### A MY, CMP, LIPA #### [facility] [address] [place] [address] Dr. Navi Day Urea nitrogen [Mass/Vol] 19.0 mg/dL Critically high 7.0-18.0 [facility] Comment on above: Performed By: #### A MY, CMP, LIPA #### [facility] [address] [place] [address] Dr. Navi Day Urea nitrogen/Creatinine [Mass ratio] 24.1 mg/mg Normal [facility] Comment on above: Performed By: #### A MY, CMP, LIPA #### [facility] [address] [place] [address] Dr. Navi Day [facility] DIGITAL SCREEN [facility] 05-19-2022 BI-RADS 1 - Negative, no evidence of malignancy. Normal interval followup in 12 months. OVERALL ASSESSMENT- NEGATIVE A letter of notification will be sent to the patient regarding the results. [facility] RIS CONSOLID[facility] HISTORY: Screening. Family history of breast carcinoma. TECHNIQUE: Bilateral digital screening mammogram with CAD. 2-D and 3-D tomography. FINDINGS: Two views of each breast show scattered areas of fibroglandular density. No change from prior studies most recent 04/03/2020. Suspicious calcifications: None. Suspicious mass: None. (If skin markers were applied, circles represent skin lesions and linear markers represent scars.) [facility]IS [facility]SOLIDATED Radiology Study observation (narrative) [facility] [employer] Phone: [employer] DIGITAL SCREEN BILA TERALOrdered By: Mehul Doyle on 05-19-2022 [employer] Phone: COVID/FLU/RSV RT-PCRon 05-05 SARS-CoV-2 (COVID-19) RNA JULIA+probe Ql (Unsp spec) Positive [employer] Other COVID/FLU/RSV RT-PCR Negative [facility] [employer] Other COVID Quick Testingon 2021 Result Negative [employer] Other Quick Fluon 09-28-2021 FLUAV Ab CF (S) [Titer] Negative [employer] Other FLUBV Ab CF (S) [Titer] Negative [employer] Other XR chest 2V*on 09-28-2021 XR chest 2V* [facility] [employer] Other XR chest 2V* [facility] [employer] Other XR chest 2V* [address] [place] [address] [employer] Other XR chest 2V* [place] [address] [facility] [employer] Other XR chest 2V* XRay Report [employer] Other XR chest 2V* Signed [employer] Other XR chest 2V* Patient: Kathryn Giordano MR#: [id number] [employer] Other XR chest 2V* [address] [employer] Other XR chest 2V* : 1955 Acct:[id number] [employer] Other XR chest 2V* Age/Sex: 66 / F ADM Date: 09/28/21 [employer] Other XR chest 2V* Loc: XDUCLY [facility]: [facility] [employer] Other XR chest 2V* Attending Dr: Anais Farley APRN [employer] Other XR chest 2V* Ordering Provider: Anais Farley APRN [employer] Other XR chest 2V* Date of Service: 09/28/21 [employer] Other XR chest 2V* XR/XR chest 2V*: COUGH [employer] Other XR chest 2V* Copies to: Anais Farley APRN [employer] Other XR chest 2V* Plain film chest2 view [employer] Other XR chest 2V* HISTORY:Productive cough. [employer] Other XR chest 2V* COMPARISON:None [facility] [employer] Other XR chest 2V* FINDINGS: The cardiac, mediastinal and hilar silhouettes are within normal limits. No acute lung [employer] Other XR chest 2V* process, pleural effusion or pneumothorax identified. Bony structures are intact. [employer] Other XR chest 2V* XR/XR chest 2V* [employer] Other XR chest 2V* IMPRESSION: No acute process. [employer] Other XR chest 2V* Impression dictated by: Sae Stafford M.D.09/28/2021 11:55 AM [employer] Other XR chest 2V* Dictation Location: [place] [address] [employer] Other XR chest 2V* Transcribed By: LEE 09/28/21 [facility]5 [place] [employer] Other XR chest 2V* Dictated By: Sae Stafford DO 09/28/21 [facility]4 [facility] [employer] Other XR chest 2V* Signed By: [employer] Other XR chest 2V* 09/28/[address] [place] [address] [email or web address] Other XR chest 2V* [facility] [place] [address] [place] [address] XRay Report Signed Patient: Kathryn Giordano MR#: [id number] : 1955 Acct:[id number] Age/Sex: 66 / F ADM Date: 09/28/21 Loc: XDUC Room: Type: [facility] Attending Dr: Anais Farley APRN Ordering Provider: [...] Sae Stafford M.D.09/28/2021 11:55 AM Dictation Location: [place] [address] Transcribed By: LEE 09/28/21 1155 Dictated By: Sae Stafford DO 09/28/21 1155 Signed By: 09/28/[address] [facility] LIPID PROFILEon 09-27-2021 CHOL-HDL RATIO NORM SEE BELOW Normal [facility] Comment on above: Result Comment: 3.3 - 4.4 LOW RISK 4.4 - 7.1 AVERAGE RISK 7.1 - 11.0 MODERATE RISK >11.0 HIGH RISK Performed By: #### L IPID, CMP #### [facility] [address] [address] [address] Navi Day Cholesterol [Mass/Vol] 203 mg/dL Critically high <=200 [facility] Comment on above: Performed By: #### L IPID, CMP #### [facility] [address] [address] [address] Navi Day Cholesterol in HDL [Mass/Vol] 72 mg/dL Critically high 40-60 [facility] Comment on above: Performed By: #### L IPID, CMP #### [facility] [address] [address] [address] Navi Day Cholesterol in LDL [Mass/Vol] 109.6 mg/dL Normal [facility] Comment on above: Performed By: #### L IPID, CMP #### [facility] [address] [place] [address] Dr. Navi Day Cholesterol.total/Chol esterol in HDL [Mass ratio] 2.8 {ratio} Normal [facility] Comment on above: Performed By: #### L IPID, CMP #### [facility] [address] [address] [address] Navi Day HDL NORMAL > or = 60 mg/dl - LOW CARDIOVASCULAR RISK <40 mg/dl - HIGH CARDIOVASCULAR RISK Normal [facility] Comment on above: Performed By: #### L IPID, CMP #### [facility] [address] [address] [address] Navi Day LDL CALC NORMAL SEE BELOW Normal [facility] Comment on above: Result Comment: <100 mg/dl OPTIMAL 100 - 129 mg/dl NEAR OR ABOVE OPTIMAL 130 - 159 mg/dl BORDERLINE HIGH 160 - 189 mg/dl HIGH >190 mg/dl VERY HIGH Performed By: #### L IPID, CMP #### [facility] [address] [address] [address] Navi Day Triglyceride [Mass/Vol] 107 mg/dL Normal <=150 [facility] Comment on above: Performed By: #### L IPID, CMP #### [facility] [address] [address] [address] Navi Day VLDL CALC 21.4 mg/dL Normal [facility] Comment on above: Performed By: #### L IPID, CMP #### [facility] [address] [address] [address] Navi Day PROF 14(COMP METB)on 022 Albumin [Mass/Vol] 3.6 g/dL Normal 3.4-5.0 [facility] Comment on above: Performed By: #### L IPID, CMP #### [facility] [address] [address] [address] Navi Day Albumin/Globulin [Mass ratio] 0.8 {ratio} Normal [facility] Comment on above: Performed By: #### L IPID, CMP #### [facility] [address] [place] [address] Dr. Navi Day ALP [Catalytic activity/Vol] 52 U/L Normal 46-116 [facility] Comment on above: Performed By: #### L IPID, CMP #### [facility] [address] [place] [address] Dr. Navi Day ALT [Catalytic activity/Vol] 34 U/L Normal 14-59 [facility] Comment on above: Performed By: #### L IPID, CMP #### [facility] [address] [place] [address] Dr. Navi Day Anion gap [Moles/Vol] 15.7 mmol/L Normal [facility] Comment on above: Performed By: #### L IPID, CMP #### [facility] [address] [address] [address] Navi Day AST [Catalytic activity/Vol] 19 U/L Normal 15-37 [facility] Comment on above: Performed By: #### L IPID, CMP #### [facility] [address] [address] [address] Navi Day Bilirubin [Mass/Vol] 0.4 mg/dL Normal 0.2-1.0 [facility] Comment on above: Performed By: #### L IPID, CMP #### [facility] [address] [place] [address] Dr. Navi Day Calcium [Mass/Vol] 9.3 mg/dL Normal 8.5-10.1 [facility] Comment on above: Performed By: #### L IPID, CMP #### [facility] [address] [place] [address] Dr. Navi Day Chloride [Moles/Vol] 100 mmol/L Normal 98-107 [facility] Comment on above: Performed By: #### L IPID, CMP #### [facility] [address] [place] [address] Dr. Navi Day CO2 [Moles/Vol] 28.4 mmol/L Normal 21.0-32.0 [facility] Comment on above: Performed By: #### L IPID, CMP #### [facility] [address] [place] [address] Dr. Navi Day Creatinine [Mass/Vol] 0.84 mg/dL Normal 0.55-1.02 [facility] Comment on above: Performed By: #### L IPID, CMP #### [facility] [address] [place] [address] Dr. Navi Day EGFR-AF COMORAN >60 Normal >=60 [facility] Comment on above: Performed By: #### L IPID, CMP #### [facility] [address] [place] [address] Dr. Navi Day EGFR-NON AF COMORAN >60 Normal >=60 [facility] Comment on above: Performed By: #### L IPID, CMP #### [facility] [address] [place] [address] Dr. Navi Day Globulin (S) [Mass/Vol] 4.1 g/dL Normal [facility] Comment on above: Performed By: #### L IPID, CMP #### [facility] [address] [place] [address] Dr. Navi Day Glucose [Mass/Vol] 198 mg/dL Critically high 74-106 [facility] Comment on above: Performed By: #### L IPID, CMP #### [facility] [address] [place] [address] Dr. Navi Day Potassium [Moles/Vol] 4.1 mmol/L Normal 3.5-5.1 [facility] Comment on above: Performed By: #### L IPID, CMP #### [facility] [address] [place] [address] Dr. Navi Day Protein [Mass/Vol] 7.7 g/dL Normal 6.1-8.2 [facility] Comment on above: Performed By: #### L IPID, CMP #### [facility] [address] [place] [address] Dr. Navi Day Sodium [Moles/Vol] 140 mmol/L Normal 136-145 [facility] Comment on above: Performed By: #### L IPID, CMP #### [facility] [address] [place] [address] Dr. Navi Day Urea nitrogen [Mass/Vol] 19.0 mg/dL Critically high 7.0-18.0 [facility] Comment on above: Performed By: #### L IPID, CMP #### [facility] [address] [place] [address] Dr. Navi Day Urea nitrogen/Creatinine [Mass ratio] 22.6 mg/mg Normal [facility] Comment on above: Performed By: #### L IPID, CMP #### [facility] [address] [place] [address] Dr. Navi Day COVID Quick Testingon 2021 Result Negative [employer] [facility] [employer] Other Quick Fluon 09-06-2021 FLUAV Ab CF (S) [Titer] Negative [employer] [facility] [employer] Other FLUBV Ab CF (S) [Titer] Negative [employer] [facility] [employer] Other [facility] DIGITAL SCREEN BILA TERALon 04-04-2020 BI-RADS 1 - Negative, no evidence of malignancy. Normal interval followup in 12 months. OVERALL ASSESSMENT- NEGATIVE A letter of notification will be sent to the patient regarding the results. [facility] [place] HISTORY: Screening. Family history breast carcinoma. Prior [...] skin lesions and linear markers represent scars.) [place], [place] Alan, Mhpn Incoming Radiant Results From [employer] - 04/04/2020 10:31 AM EST HISTORY: Screening. [...] sent to the patient regarding the results. [place] Albuminon 11-02-2019 Albumin [Mass/Vol] 4.5 g/dL 3.5 - 5.2 g/dL [place] Calciumon 11-02-2019 Calcium [Mass/Vol] 10.2 mg/dL 8.6 - 10. 4 mg/dL [place] Comprehensive Metabolic Pane bettie 10-10-2019 Albumin [Mass/Vol] 4.5 g/dL 3.5 - 5.2 g/dL [place] Albumin/Globulin [Mass ratio] NOT REPORTED [place] ALP [Catalytic activity/Vol] 67 U/L 35 - 104 U/L [place] ALT [Catalytic activity/Vol] 23 U/L 5 - 33 U/L [place] Anion gap [Moles/Vol] 7 mmol/L Low 9 - 17 mmol/L [place] AST [Catalytic activity/Vol] 25 U/L <32 [place] Bilirubin Ql (U) 0.49 mg/dL 0.3 - 1.2 mg/dL [place] Bun/Cre Ratio 16 [place] Calcium [Mass/Vol] 11.2 mg/dL High 8.6 - 10. 4 mg/dL [place] Chloride [Moles/Vol] 97 mmol/L Low 98 - 10 7 mmol/L [place] CO2 [Moles/Vol] 30 mmol/L 20 - 31 mmol/L [place] Creatinine [Mass/Vol] 0.74 mg/dL 0.5 - 0.9 mg/dL [place] GFR >60 >60 mL/min [place] GFR Non- >60 >60 mL/min [place] GFR/1.73 sq M predicted among non-blacks MDRD (S/P/Bld) [Vol rate/Area] NOT REPORTED [place] GFR/1.73 sq M predicted among non-blacks MDRD (S/P/Bld) [Vol rate/Area] [place] Comment on above: Average GFR for 60-6 9 years old: 85 mL/min/1.73sq m Chronic Kidney Disease: <60 mL/min/1.73sq m Kidney failure: <15 mL/min/1.73sq m eGFR calculated using average adult body mass. Additional eGFR calculator available at: http://www.eyeOS/multiple_crcl_2012.htm Glucose [Mass/Vol] 196 mg/dL High 70 - 99 mg/dL [place] Interpretation and review of laboratory results Abnormal [place] Potassium [Moles/Vol] 4.1 mmol/L 3.7 - 5.3 mmol/L [place] Protein [Mass/Vol] 8.0 g/dL 6.4 - 8.3 g/dL [place] Sodium [Moles/Vol] 134 mmol/L Low 135 - 144 mmol/L [place] Urea nitrogen [Mass/Vol] 12 mg/dL 8 - 23 mg/dL [place] Lipid Panelon 10-10-2019 Cholesterol [Mass/Vol] 192 mg/dL <200 [place], [place] Comment on above: Cholesterol Guidelines: <200 Desirable 200-240 Borderline >240 Undesirable Cholesterol in HDL [Mass/Vol] 67 mg/dL >40 [place] Comment on above: HDL Guidelines: <40 Undesirable 40-59 Borderline >59 Desirable Cholesterol in LDL [Mass/Vol] 101 mg/dL 0 - 130 mg/dL [place] Comment on above: LDL Guidelines: <100 Desirable 100-129 Near to/above Desirable 130-159 Borderline >159 Undesirable Direct (measured) LDL and calculated LDL are not interchangeable tests. Cholesterol in VLDL [Mass/Vol] NOT REPORTED 1 - 30 mg/dL [place] Cholesterol.total/Chol esterol in HDL [Mass ratio] 2.9 {ratio} <5 [place] Triglyceride [Mass/Vol] 122 mg/dL <150 [place] Comment on above: Triglyceride Guidelines: <150 Desirable 150-199 Borderline 200-499 High >499 Very high Based on AHA Guidelines for fasting triglyceride, February 2012. Patient Fasting?on 0 Patient Fasting? yes [place] CBC Auto Differentialon 02-28 Basophils (Bld) [#/Vol] 0.00 10*3/uL [place] Basophils/100 WBC (Bld) 0 % 0 - 2 % [place] Differential Type YES [facility] Sush[place] Eosinophils (Bld) [#/Vol] 0.30 10*3/uL [place] Eosinophils/100 WBC (Bld) 3 % 0 - 5 % [place] Erythrocyte distribution width (RBC) [Ratio] 13.7 % 12.1 - 15.2 % [place] Hematocrit (Bld) [Volume fraction] 40.1 % 36 - 46 % [place] Hemoglobin (Bld) [Mass/Vol] 13.3 g/dL 12 - 16 g/dL [place] Lymphocytes (Bld) [#/Vol] 2.00 10*3/uL [place] Lymphocytes/100 WBC (Bld) 22 % 15 - 40 % [place] MCH (RBC) [Entitic mass] 27.9 pg 26 - 34 pg [place] MCHC (RBC) [Mass/Vol] 33.2 g/dL 31 - 37 g/dL M [place] MCV (RBC) [Entitic vol] 83.9 fL 80 - 100 fL [place] Monocytes (Bld) [#/Vol] 0.70 10*3/uL [place] Monocytes/100 WBC (Bld) 8 % 4 - 8 % [place] Platelet mean volume (Bld) [Entitic vol] NOT REPORTED 6 - 12 fL [place] Platelets (Bld) [#/Vol] NOT REPORTED [place] Platelets (Bld) [#/Vol] 255 10*3/uL [place] RBC (Bld) [#/Vol] 4.78 10*6/uL 4 - 5.2 m/uL [place] RBC morphology finding Nom (Bld) NOT REPORTED [place] Segmented neutrophils/100 WBC (Bld) 67 % 47 - 75 % [place] Segs Absolute 6.00 [place] WBC (Bld) [#/Vol] NOT REPORTED per 100 WBC [place] WBC (Bld) [#/Vol] 9.0 10*3/uL [place] WBC Morphology NOT REPORTED [place] Otheron 03-14-2019 Immature granulocytes (Bld) [#/Vol] NOT REPORTED [place]IER[place] DIGITAL SCREEN W OR WO C AD BILATERALon 02-16-2019 Benign bilateral mammography. BI-RADS 2 - Benign, no evidence of malignancy. Normal interval followup is recommended in 12 months. OVERALL ASSESSMENT- BENIGN A letter of notification will be sent to the patient regarding the results. [place] EXAM: THIERNO DIGITAL SCREEN W OR WO CAD BILATERAL HISTORY: Reason for exam:->screening. COMPARISON: 01/05/2018, 10/14/2016, 10/09/2015. TECHNIQUE: 2D views FINDINGS: Breasts are of scattered fibroglandular composition. Minimal postsurgical scarring is seen in the upper-outer left breast, and this is stable. No developing masses, microcalcifications , or enlarged lymph nodes. [facility] [place] Alan, Mhpn Incoming Radiant Results From [employer] - 02/16/2019 10:14 AM EDT EXAM: THIERNO [...] sent to the patient regarding the results. [facility] Vital Signs Date Time Vital Sign Value Performing Clinician Facility 06-22-2024 10:24-0500 Diastolic blood pressure 56 mm[Hg] [facility] 06-22-2024 10:24-0500 Heart rate 89 /min Kraig Alford [employer] [facility] 06-22-2024 10:24-0500 Systolic blood pressure 131 mm[Hg] Kraig PresleyRABBLchance [employer] Work Phone: [facility] 06-08-2024 10:32-0500 Body height 165.1 cm [facility] 06-08-2024 10:32-0500 Body mass index (BMI) [Ratio] 38.4 kg/m2 [facility] 06-08-2024 10:32-0500 Body temperature 98.1 [degF] [facility] 06-08-2024 10:32-0500 Body weight 104.77 kg [facility] 06-08-2024 10:32-0500 Diastolic blood pressure 78 mm[Hg] [facility] 06-08-2024 10:32-0500 Heart rate 81 /min [facility] 06-08-2024 10:32-0500 Respiratory rate 20 /min [facility] 06-08-2024 10:32-0500 SaO2% (BldA) [Mass fraction] 97 % [facility] 06-08-2024 10:32-0500 Systolic blood pressure 140 mm[Hg] [facility] 06-02-2024 09:00-0500 Diastolic blood pressure 65 mm[Hg] Carlos Aguayo MD Work Phone: [facility] [employer] 06-02-2024 09:00-0500 Heart rate 68 /min Carlos Aguayo MD Work Phone: [facility] [employer] 06-02-2024 09:00-0500 Respiratory rate 21 /min Carlos Aguayo MD Work Phone: [facility] [employer] 06-02-2024 09:00-0500 Systolic blood pressure 146 mm[Hg] Carlos Agauyo MD Work Phone: [facility] [employer] 06-02-2024 08:00-0500 SaO2% (BldA) [Mass fraction] 90 % Carlos Aguayo MD Work Phone: [facility] [employer] 06-02-2024 07:38-0500 Body temperature 97.59 [degF] Carlos Aguayo MD Work Phone: [facility] [employer] 06-02-2024 06:39-0500 Body height 162.6 cm Carlos Aguayo MD Work Phone: [facility] [employer] 06-02-2024 06:39-0500 Body mass index (BMI) [Ratio] 39.99 kg/m2 Carlos Aguayo MD Work Phone: [facility] [employer] 06-02-2024 06:39-0500 Body weight 105.69 kg Carlos Aguayo MD Work Phone: [facility] [employer] 04-11-2024 10:20-0500 Body height 165.1 cm Neftaly Mcmanus DO Work Phone: [facility] 04-11-2024 10:20-0500 Body mass index (BMI) [Ratio] 39.94 kg/m2 Neftaly Mcmanus DO Work Phone: [facility] 04-11-2024 10:20-0500 Body weight 108.86 kg Neftaly Mcmanus DO Work Phone: [facility] 03-20-2024 15:26-0400 Body height 165.1 cm Neftaly Mcmanus DO Work Phone: [facility] 03-20-2024 15:26-0400 Body mass index (BMI) [Ratio] 39.94 kg/m2 Neftaly Mcmanus DO Work Phone: [facility] 03-20-2024 15:26-0400 Body weight 108.86 kg Neftaly Mcmanus DO Work Phone: [facility] 03-09-2024 10:58-0400 Body height 165.1 cm [facility] 03-09-2024 10:58-0400 Body mass index (BMI) [Ratio] 38.2 kg/m2 [facility] 03-09-2024 10:58-0400 Body temperature 98.1 [degF] [facility] 03-09-2024 10:58-0400 Body weight 104.32 kg [facility] 03-09-2024 10:58-0400 Diastolic blood pressure 85 mm[Hg] [facility] 03-09-2024 10:58-0400 Heart rate 92 /min [facility] 03-09-2024 10:58-0400 Respiratory rate 18 /min [facility] 03-09-2024 10:58-0400 SaO2% (BldA) [Mass fraction] 96 % [facility] 03-09-2024 10:58-0400 Systolic blood pressure 161 mm[Hg] [facility] 12-09-2023 11:01-0400 Body height 165.1 cm [facility] 12-09-2023 11:01-0400 Body mass index (BMI) [Ratio] 38.6 kg/m2 [facility] 12-09-2023 11:01-0400 Body temperature 98.2 [degF] [facility] 12-09-2023 11:01-0400 Body weight 105.23 kg [facility] 12-09-2023 11:01-0400 Diastolic blood pressure 70 mm[Hg] [facility] 12-09-2023 11:01-0400 Heart rate 71 /min [facility] 12-09-2023 11:01-0400 Respiratory rate 20 /min [facility] 12-09-2023 11:01-0400 SaO2% (BldA) [Mass fraction] 97 % [facility] 12-09-2023 11:01-0400 Systolic blood pressure 143 mm[Hg] [facility] 09-30-2023 14:31-0400 Body height 165.1 cm [facility] 09-30-2023 14:31-0400 Body mass index (BMI) [Ratio] 39.2 kg/m2 [facility] 09-30-2023 14:31-0400 Body temperature 96.8 [degF] [facility] 09-30-2023 14:31-0400 Body weight 107.04 kg [facility] 09-30-2023 14:31-0400 Diastolic blood pressure 86 mm[Hg] [facility] 09-30-2023 14:31-0400 Heart rate 88 /min [facility] 09-30-2023 14:31-0400 Respiratory rate 20 /min [facility] 09-30-2023 14:31-0400 SaO2% (BldA) [Mass fraction] 97 % [facility] 09-30-2023 14:31-0400 Systolic blood pressure 134 mm[Hg] [facility] 07-13-2023 09:47-0500 Body height 165.1 cm Mary Anne Babb DPM Work Phone: [facility] 07-13-2023 09:47-0500 Body mass index (BMI) [Ratio] 39.94 kg/m2 Mary Anne Babb DPM Work Phone: [facility] 07-13-2023 09:47-0500 Body weight 108.86 kg Mary Anne Babb DPM Work Phone: [facility] 07-13-2023 09:47-0500 Diastolic blood pressure 73 mm[Hg] Chrislulúer Bohach DPM Work Phone: [facility] 07-13-2023 09:47-0500 Heart rate 72 /min Christopher Bohach DPM Work Phone: [facility] 07-13-2023 09:47-0500 Respiratory rate 16 /min Chrislulúer Bohach DPM Work Phone: [facility] 07-13-2023 09:47-0500 Systolic blood pressure 140 mm[Hg] Chrisopher Bohach DPM Work Phone: [facility] 09-07-2022 10:00-0400 Body height 165.1 cm German Miranda Other [employer] Other 09-07-2022 10:00-0400 Body mass index (BMI) [Ratio] 38.27 kg/m2 Markleroy Miranda Other [employer] Other 09-07-2022 10:00-0400 Body temperature 96.9 [degF] German Miranda Other [employer] Other 09-07-2022 10:00-0400 Body weight 104.33 kg German Miranda Other [employer] Other 09-07-2022 10:00-0400 Diastolic blood pressure 82 mm[Hg] German Miranda Other [employer] Other 09-07-2022 10:00-0400 Respiratory rate 20 /min German Miranda Other [employer] Other 09-07-2022 10:00-0400 SaO2% (BldA) [Mass fraction] 97 % German Miranda Other [employer] Other 09-07-2022 10:00-0400 Systolic blood pressure 132 mm[Hg] German Miranda Other [employer] Other 05-05-2022 12:00-0500 Body height 165.1 cm Charline Wilburn Other [employer] Other 05-05-2022 12:00-0500 Body mass index (BMI) [Ratio] 38.27 kg/m2 Charline Wilburn Other [employer] Other 05-05-2022 12:00-0500 Body temperature 98 [degF] Charline Wilburn Other [employer] Other 05-05-2022 12:00-0500 Body weight 104.33 kg Charlnie Wilburn Other [employer] Other 05-05-2022 12:00-0500 Respiratory rate 18 /min Charline Wilburn Other [employer] Other 05-05-2022 12:00-0500 SaO2% (BldA) [Mass fraction] 97 % Charline Wilburn Other [employer] Other 09-28-2021 12:05-0400 Body height 165.1 cm Anais Farley Other [employer] Other 09-28-2021 12:05-0400 Body mass index (BMI) [Ratio] 36.94 kg/m2 Anais Farley Other [employer] Other 09-28-2021 12:05-0400 Body temperature 98.8 [degF] Anais Farley Other [employer] Other 09-28-2021 12:05-0400 Body weight 100.7 kg Anais Farley Other [employer] Other 09-28-2021 12:05-0400 Respiratory rate 18 /min Anais Farley Other [employer] Other 09-28-2021 12:05-0400 SaO2% (BldA) [Mass fraction] 96 % Anais Farley Other [employer] Other 09-06-2021 11:30-0400 Body height 165.1 cm Charline Cosmo Other [employer] Other 09-06-2021 11:30-0400 Body mass index (BMI) [Ratio] 37.6 kg/m2 Charline Cosmo Other [employer] Other 09-06-2021 11:30-0400 Body temperature 98.8 [degF] Charline Cosmo Other [employer] Other 09-06-2021 11:30-0400 Body weight 102.51 kg Charline Cosmo Other [employer] Other 09-06-2021 11:30-0400 SaO2% (BldA) [Mass fraction] 98 % Charline Cosmo Other [employer] Other 08-12-2021 10:45-0400 Body height 165.1 cm German Miranda Other [employer] Other 08-12-2021 10:45-0400 Body mass index (BMI) [Ratio] 37.94 kg/m2 German Miranda Other [employer] Other 08-12-2021 10:45-0400 Body temperature 97.2 [degF] German Miranda Other [employer] Other 08-12-2021 10:45-0400 Body weight 103.42 kg German Miranda Other [employer] Other 08-12-2021 10:45-0400 Diastolic blood pressure 84 mm[Hg] German Miranda Other [employer] Other 08-12-2021 10:45-0400 Respiratory rate 20 /min German Miranda Other [employer] Other 08-12-2021 10:45-0400 SaO2% (BldA) [Mass fraction] 100 % German Miranda Other [employer] Other 08-12-2021 10:45-0400 Systolic blood pressure 168 mm[Hg] German Miranda Other [employer] Other Encounters Encounter Date Encounter Type Care Provider Facility Start: 06-22-2024 End: 06-24-2024 ambulatory KRAIG ALFORD [facility] Start: 06-22-2024 End: 06-24-2024 Subsequent hospital visit by physician Kraig Alford DO Work Phone: [facility] Comment on above: Chest pain, unspecif ied type; Shortness of breath Arrived Start: 06-08-2024 End: 06-08-2024 ambulatory [facility] Work Phone: Start: 06-08-2024 End: 06-08-2024 [facility] Work Phone: Start: 06-02-2024 End: 06-04-2024 [facility] Start: 06-02-2024 End: 06-04-2024 Subsequent hospital visit by physician Carlos Aguayo MD Work Phone: [facility] Comment on above: Sinus bradycardia; Sinus pause Start: 06-02-2024 End: 06-02-2024 [facility] Start: 06-02-2024 End: 06-02-2024 Subsequent hospital visit by physician Carlos Aguayo MD Work Phone: [facility] Comment on above: Sinus bradycardia (P rimary Dx); Sinus pause Start: 05-22-2024 End: 05-24-2024 [facility] Start: 05-22-2024 End: 05-24-2024 Subsequent hospital visit by physician Suzanne Douglas MD Work Phone: [facility] Comment on above: Encounter for screen ing mammogram for malignant neoplasm of breast Start: 05-11-2024 End: 05-11-2024 [facility] Start: 05-11-2024 [facility] Start: 05-11-2024 End: 05-11-2024 Patient encounter status Suzanne Douglas MD Work Phone: [facility] Start: 05-11-2024 End: 05-11-2024 Subsequent hospital visit by physician Suzanne Douglas MD Work Phone: [facility] Comment on above: Pre-op testing [...] minutes Neftaly Mcmanus DO Work Phone: [facility] Comment on above: Acute laryngitis (Pr imary Dx) Start: 03-20-2024 End: 03-20-2024 ambulatory NEFTALY MCMANUS Not Available Start: 03-20-2024 End: 03-20-2024 Bamboo flowsheet Neftaly Mcmanus DO Work Phone: [facility] Start: 03-20-2024 End: 03-20-2024 Bamboo flowsheet Neftaly Mcmanus DO Work Phone: [facility] Start: 03-09-2024 End: 03-09-2024 ambulatory [facility] Work Phone: Start: 03-09-2024 End: 03-09-2024 [facility] encounter procedure [facility] Work Phone: Start: 12-09-2023 End: 12-09-2023 ambulatory [facility] Work Phone: Start: 12-09-2023 End: 12-09-2023 [facility] encounter procedure [facility] Work Phone: Start: 10-04-2023 End: 10-04-2023 ambulatory [facility] Start: 09-30-2023 End: 09-30-2023 Patient encounter procedure [facility] Work Phone: Start: 07-13-2023 Bamboo flowsheet Mary Anne Babb DPM Work Phone: [facility] Start: 07-13-2023 Bamboo flowsheet Mary Anne Babb DPM Work Phone: [facility] Start: 07-13-2023 End: 07-13-2023 Office outpatient visit 15 minutes Mary Anne aBbb DPM Work Phone: [facility] Comment on above: Diabetic polyneuropa thy associated with type 2 diabetes mellitus ([facility]/HCC) (Primary Dx); Hammer toes of both feet Start: 07-13-2023 End: 07-13-2023 ambulatory MARY ANNE BABB Not Available Start: 07-05-2023 End: 07-05-2023 ambulatory Freddy KRAUS Facility:[facility] Start: 07-05-2023 End: 07-05-2023 Patient encounter procedure Freddy KRAUS [facility] Start: 09-07-2022 End: 09-07-2022 ambulatory German Miranda Other [employer] Other Start: 09-07-2022 Office outpatient vi sit 25 minutes Kamleroy Miranda [facility] Start: 07-08-2022 End: 07-08-2022 Subsequent hospital visit by physician Kinga Faustin PT [facility] Start: 07-08-2022 End: 07-08-[address] CHIKI MONIQUE Facility: Start: 05-19-2022 End: 05-21-2022 Subsequent hospital visit by physician [facility] Mammography Room [facility] Comment on above: Encounter for screen ing mammogram for malignant neoplasm of breast Start: 05-05-2022 End: 05-05-2022 ambulatory Charline Wilburn Other [employer] Other Start: 05-05-2022 Office outpatient vi sit 25 minutes Charline Wilburn [facility] Start: 04-13-2022 End: 04-13-2022 Patient encounter procedure Freddy KRAUS [facility] Start: 09-28-2021 End: 09-28-2021 ambulatory Anais Tamayoler Other [employer] Other Start: 09-28-2021 Office outpatient vi sit 15 minutes Anais Farley [facility] Start: 09-27-2021 End: 09-28-[address] SUZANNE DOUGLAS Facility: Start: 09-25-2021 End: 09-25-2021 ambulatory Mary Anne Chan Other [employer] Other Start: 09-25-2021 Telephone encounter Isai Chan [facility] Start: 09-06-2021 End: 09-06-2021 ambulatory Charline Wilburn Other [employer] Other Start: 09-06-2021 Office outpatient vi sit 15 minutes Charline Cosmo [facility] Start: 08-12-2021 End: 08-12-2021 ambulatory German Miranda Other [employer] Other Start: 08-12-2021 Office outpatient vi sit 15 minutes Kamal Chaban [facility] Start: 04-03-2020 End: 04-05-2020 Subsequent hospital visit by physician [facility] Mammography Room [facility] Comment on above: Visit for screening mammogram Start: 03-21-2020 End: 03-21-2020 Subsequent hospital visit by physician Suzanne [facility] Start: 11-02-2019 End: 11-02-2019 Subsequent hospital visit by physician Suzanne [facility] Comment on above: Hypercalcemia Start: 10-10-2019 End: 10-10-2019 Subsequent hospital visit by physician Suzanne [facility] Comment on above: Essential hypertensi on, benign; Type 2 diabetes mellitus without complication, without long-term current use of insulin (HCC); Pure hypercholesterolemia Start: 03-14-2019 End: 03-14-2019 Subsequent hospital visit by physician Suzanne Douglas [facility] Laboratory Comment on above: Metallic taste; Disturbance of smell and taste Start: 02-15-2019 End: 02-17-2019 Subsequent hospital visit by physician [facility] Mammography Room [facility] Laboratory Comment on above: Encounter for screen ing mammogram for breast cancer Start: 05-18-2018 Patient encounter procedure PHYSICIA N NO [facility] Procedures Date Procedure Procedure Detail Performing Clinician Start: 06-22-2024 Myocardial spect mul tiple studies Kraig Alford DO Work Phone: Start: 06-02-2024 Basic metabolic pane l calcium total Carlos Aguayo MD Work Phone: Start: 06-02-2024 Ecg routine ecg w/le ast 12 lds w/i&r Carlos Aguayo MD Work Phone: Start: 06-02-2024 Colonoscopy Carlos Aguayo MD Work Phone: Start: 05-22-2024 Screening mammograph y bi 2-view breast inc cad Suzanne Douglas MD Work Phone: Start: 05-11-2024 Ecg routine ecg w/le ast 12 lds w/i&r Carlos Aguayo MD Work Phone: Start: 05-20-2023 Mammography Isai [...] Work Phone: Start: 11-02-2019 Calcium total Suzanne Rebolledo ersumanthff Work Phone: Start: 10-10-2019 Comprehensive metabo lic [...] [place] Start: 06-19-2013 Colonoscopy [facility] Room Start: 05-08-2013 [place]ystoscopy [place] Start: 05-09-2012 [place]ystoscopy [facility] [place] Start: 04-13-2011 [place]ystoscopy [facility] [place] Start: 04-11-2010 [place]ystoscopy [facility] [place] Start: 04-04-2009 [place]ystoscopy [facility] [place] Start: 12-29-2006 Colonoscopy Isai Babb DPM Work Phone: Start: 12-29-2006 Colonoscopy [facility] [place] BREAST BIOPSY X2 LEF T BREAST Freddy COOK D&C X2 Freddy COOK MASS REMOVAL RIGHT EAR Edgard KRAUS NECK MASS REMOVAL [facility] CASAS Plan of Treatment Date Care Activity Detail Author Start: 06-02-2034 Screening for malignant neoplasm of colon [employer] Start: 06-06-2025 Glaucoma screening Diabetic retinal exam [facility] [employer] Start: 06-02-2025 GFR test (Diabetes, CKD 3-4, OR last GFR 15-59) GFR test (Diabetes, CKD 3-4, OR last GFR 15-59) [facility] [employer] Start: 05-22-2025 Screening for malignant neoplasm of breast Breast cancer screen [facility] Start: 04-13-2025 Annual Wellness Visit (Medicare) Annual Wellness Visit (Medicare) [facility] Start: 04-12-2025 Depression Screen Depression Screen [facility] Start: 10-17-2024 End: 10-17-2024 Patient encounter procedure 10/17/2024 9:30 AM EDT Office Visit [facility] [address] [place] [id number] Kraig Alford DO [address] [place] [address] 4 month f/u [facility] Comment on above: 4 month f/u Start: 10-06-2024 Diabetic foot examination Diabetic foot exam [facility] [employer] [facility] [employer] Start: 10-03-2024 GFR test (Diabetes, CKD 3-4, OR last GFR 15-59) GFR test (Diabetes, CKD 3-4, OR last GFR 15-59) [facility] Start: 10-03-2024 [facility]id [facility] Start: 10-03-2024 Urine screening for protein Diabetic Alb to Cr ratio (uACR) test [facility] Start: 07-13-2024 Hemoglobin A1c measurement A1C test (Diabetic or Prediabetic) [facility] [employer] Start: 07-13-2024 End: 07-13-2024 Patient encounter procedure 07/13/2024 9:00 AM EST Office Visit [facility] [address] [place] [address] Suzanne Douglas MD [address] [place] [address] 3 months (around 07/13/2024) for DM, HTN, Hyperlipidemia [facility] Comment on above: 3 months (around 07/13/2024) for DM, HTN, Hyperlipidemia Start: 06-02-2024 End: 06-02-2025 Extended cardiac holter monitor (3 days-14 day) [facility] Comment on above: Expected: 06/02/2024, Expires: 1 Occurrences starti ng 06/02/2024 until 06/02/2024 Start: 06-02-2024 End: 06-02-2024 Admission to same day surgery center 06/02/2024 7:30 AM EST - 06/02/2024 7:59 AM EST Surgery [facility] [address] [id number] Carlos Aguayo MD [address] [id number] COLONOSCOPY [facility] Comment on above: COLONOSCOPY Start: 06-02-2024 Subsequent hospital visit by physician 06/02/2024 7:30 AM EST Hospital Encounter [facility] [address] [place] [address] Carlos Aguayo MD [address] [place] [address] [facility] Start: 06-02-2024 End: 06-02-2024 Colonoscopy flx dx w/collj spec when pfrmd [facility] Start: 05-20-2024 Screening for malignant neoplasm of breast [facility] Start: 05-19-2024 Screening for malignant neoplasm of breast Breast cancer screen [facility] Start: 04-11-2024 End: 04-11-2024 Patient encounter procedure 04/11/2024 10:00 AM EST Office Visit [facility] [address] [place] [address] Neftaly Mcmanus W, DO [address] [place] [address] [facility] Start: 03-20-2024 End: 03-20-2024 Patient encounter procedure 03/20/2024 3:30 PM EDT Office Visit [facility] [address] [place] [address] Neftaly Mcmanus, DO [address] [place] [address] Arrived [facility] Comment on above: Arrived Start: 01-30-2024 COVID-19 Vaccine () COVID-19 Vaccine () [facility] [employer] [facility] Start: 01-30-2024 Influenza vaccination Influenza Vaccine (#1) [facility] Start: 07-13-2023 End: 07-13-2023 Patient encounter procedure 07/13/2023 9:45 AM EST Office [address] [facility] [address] [place] [address] Mary Anne Babb, DPM [address] [place] [address] [facility] Comment on above: Arrived Start: 07-01-2023 Depression Screen [facility] Start: 06-19-2023 Colon cancer screen colonoscopy Colon cancer screen colonoscopy [facility] [place] Start: 06-19-2023 Screening for malignant neoplasm of colon [facility] Start: 06-02-2023 Glaucoma screening Diabetic retinal exam [facility] Start: 04-14-2023 Diabetic foot examination Diabetic foot exam [facility] Start: 04-14-2023 Hemoglobin A1c measurement A1C test (Diabetic or Prediabetic) [facility] Start: 04-12-2023 Cervical cancer screen Cervical cancer screen [place] Start: 04-12-2023 Screening for malignant neoplasm of cervix Cervical cancer screen [place] Start: 01-14-2023 Depression Screen Depression Screen [facility] Start: 10-13-2022 End: 10-13-2022 Patient encounter procedure 10/13/2022 Office Visit Family Medicine Suzanne Douglas MD [address] [id number] [facility] Start: 06-30-2022 Annual Wellness Visit (AWV) Annual Wellness Visit (AWV) [facility] Start: 06-10-2022 Diabetic retinal exam Diabetic retinal exam [facility] Start: 04-08-2022 Pneumococcal 65+ years Vaccine (2 of 2 - PCV) Pneumococcal 65+ years Vaccine (2 of 2 - PCV) [facility] Start: 04-08-2022 Pneumococcal Vaccine: 65+ Years (2 - PCV) Pneumococcal Vaccine: 65+ Years (2 - PCV) [facility] Start: 04-08-2022 Pneumococcal Vaccine: 65+ Years (2 of 2 - PCV) Pneumococcal Vaccine: 65+ Years (2 of 2 - PCV) [facility] Start: 04-08-2022 Urine screening for protein [facility] Start: 04-03-2022 Screening for malignant neoplasm of breast Breast cancer screen [place] Start: 10-03-2021 GFR test (Diabetes, CKD 3-4, OR last GFR 15-59) GFR test (Diabetes, CKD 3-4, OR last GFR 15-59) [facility] Start: 10-03-2021 Lipid panel Lipids [facility] Start: 07-25-2021 COVID-19 Vaccine (3 - Booster for Patricia series) COVID-19 Vaccine (3 - Booster for Patricia series) [facility] Start: 02-15-2021 Breast cancer screen Breast cancer screen [place] Start: 02-15-2021 Screening for malignant neoplasm of breast Breast cancer screen [place] Start: 10-09-2020 Creatinine measurement Creatinine monitoring [facility] [place] Start: 10-09-2020 HbA1c (Bld) [Mass fraction] A1C test (Diabetic or Prediabetic) [place] Start: 10-09-2020 Lipid panel Lipid [place] Start: 10-09-2020 Potassium monitoring Potassium monitoring [place] Start: 06-30-2020 Diabetic retinal exam Diabetic retinal exam [place], [place] Start: 04-11-2020 Diabetic microalbuminuria test Diabetic microalbuminuria test [place] Start: 04-11-2020 HbA1c (Bld) [Mass fraction] A1C test (Diabetic or Prediabetic) [place] Start: 04-10-2020 End: 04-10-2020 Office Visit 04/10/2020 Office Visit Family Suzanne Mendoza MD [address] [place] [address] [facility] Start: 01-30-2020 Influenza vaccination Flu vaccine (#1) [place] Start: 01-06-2020 Breast cancer screen Breast cancer screen [place] Start: 10-05-2019 [object Object] Diabetic foot exam [place] Start: 10-05-2019 A1C test (Diabetic or Prediabetic) A1C test (Diabetic or Prediabetic) [place] Start: 10-05-2019 Diabetic foot examination Diabetic foot exam [place] Start: 06-03-2019 Diabetic retinal exam Diabetic retinal exam [place], [place] Start: 04-12-2019 Creatinine measurement Creatinine monitoring [facility] [place] Start: 04-12-2019 Creatinine monitoring Creatinine monitoring [place] Start: 04-12-2019 Lipid panel Lipid screen [place] Start: 04-12-2019 Lipid screen Lipid [place] Start: 04-12-2019 Potassium monitoring Potassium monitoring [place] Start: 04-11-2019 End: 04-11-2019 Office Visit 04/11/2019 Office Visit Family Suzanne Mendoza MD [address] [place] [address] [facility] Start: 01-29-2019 Influenza vaccination Flu vaccine (#1) [place] Start: 01-05-2019 Diabetic microalbuminuria test Diabetic microalbuminuria test [place] Start: 12-29-2016 Screening for malignant neoplasm of colon [facility] Start: 2016 Respiratory Syncytial Virus (RSV) or age 60 yrs+ (1 - Risk 60-74 years 1-dose series) Respiratory Syncytial Virus (RSV) or age 60 yrs+ (1 - Risk 60-74 years 1-dose series) [facility] Start: 02-12-2006 Shingles Vaccine (1 of 2) Shingles Vaccine (1 of 2) [facility] Start: 02-12-2001 Screening for malignant neoplasm of colon [facility] Start: 02-12-1975 DTaP/Tdap/Td vaccine (1 - Tdap) DTaP/Tdap/Td vaccine (1 - Tdap) [facility] Start: 02-12-1974 Hepatitis C screening Hepatitis C screen [facility] Start: 02-12-1971 HIV screen HIV screen [place] Start: 02-12-1971 HIV screening HIV screen [place] Start: 02-12-1962 Pneumococcal 0-64 years Vaccine (1 of 1 - PPSV23) Pneumococcal 0-64 years Vaccine (1 of 1 - PPSV23) [place] Start: 1956 Hepatitis C screen Hepatitis C screen [place] Start: 1956 Hepatitis C screening Hepatitis C screen [place] Start: 1956 Screening for malignant neoplasm of colon [facility] End: 02-15-2019 Cytology, Non-Seo Professional Cytology, Non-Seo Professional Lab Routine Once for 1 Occurrences starting 02/15/2019 until 02/15/2019 [place] Comment on above: Once for 1 Occurrences starting 02/16/20 19 until 02/15/2019 Cytology, Non-Seo Professional Cytology, Non- Seo Professional Lab Routine 02/15/2019 1:54 PM EDT [place] End: 06-22-2024 Echo (TTE) complete (PRN contrast/bubble/strain/3D ) [facility] Comment on above: 1 Occurrences starting 06/22/2024 until 06/22/2024 EKG 12 Lead EKG 12 Lead ECG Routine Pre-op testing 05/11/2024 1:52 PM EST [facility] EKG 12 Lead EKG 12 Lead ECG STAT 06/02/2024 7:59 AM EST [facility] End: 03-14-2019 Heavy Metals Screen, Urine Heavy Metals Screen, Urine Lab Routine Once for 1 Occurrences starting 03/14/2019 until 03/14/2019 [facility] [place] Comment on above: Once for 1 Occurrences starting 03/14/20 19 until 03/14/2019 Heavy Metals Screen, Urine Heavy Metals Screen, Urine Lab Routine 03/14/2019 7:38 AM EDT [facility] [place] IgA [Mass/volume] in Serum or Plasma [facility] IgE [Units/volume] i n Serum or Plasma [facility] IgG [Mass/volume] in Serum or Plasma [facility] IgM [Mass/volume] in Serum or Plasma [facility] End: 11-02-2019 PTH, Intact PTH, Intact Lab Routine Hypercalcemia 1 Occurrences starting 11/02/2019 until 11/02/2019 [facility] [place] Comment on above: 1 Occurrences starting 11/02/2019 until 11/02/2019 PTH, Intact PTH, Intact Lab Routine Hypercalcemia 11/02/2019 5:17 PM EDT [facility] [place] Serologic test for Aspergillus [facility] Immunizations Immunization Date Immunization Notes Care Provider [facility] 04-12-2024 influenza, injectabl e, madin maricruz canine kidney, preservative free Suzanne Douglas MD Work Phone: [facility] 04-06-2023 Influenza, injectabl e, Madin Maricruz Canine Kidney, preservative free, quadrivalent Mary Anne Babb DPM Work Phone: [facility] 04-06-2023 influenza virus vaccine, unspecified formulation Neftaly Mcmanus DO Work Phone: [facility] 04-14-2022 Influenza, FLUAD, (a ge 65 y+), Adjuvanted, 0.5mL [facility] Room [facility] Work Phone: 05-30-2021 COVID-19 Vaccine Pfizer - Documentation Purposes Only German Miranda Other [employer] Other 04-08-2021 Influenza, FLUAD, (a ge 65 y+), Adjuvanted, 0.5mL [facility] Room [facility] Work Phone: 04-08-2021 pneumococcal polysaccharide vaccine, 23 valent [facility] Room [facility] Work Phone: 08-09-2020 COVID-19 Vaccine Patricia - Documentation Purposes Only German Miranda Other [facility] 04-10-2020 influenza, injectabl e, quadrivalent, preservative free [facility] 04-11-2019 influenza virus vaccine, unspecified formulation [facility] 04-11-2019 influenza, high dose seasonal, preservative-free Kamal Chaban Other [employer] Other 04-11-2019 influenza, injectabl e, quadrivalent, preservative free [facility] [place] 04-12-2018 influenza virus vaccine, unspecified formulation [facility] 04-12-2018 influenza, high dose seasonal, preservative-free Kamal Chaban Other [employer] Other 04-12-2018 influenza, injectabl e, quadrivalent, preservative free [facility] Payers Date Payer Category Payer Private Health Insurance [id number] 2022 Medicare [id number] 2017 Unknown UMR NRECA UMR xx xxxxxxxxxx 2017-[place] [address] [place] [address] [address] xxxxxxxxxxxx [id number] 1959 Medicare [id number] 1959 Private Health Insurance [id number] 1959 Unknown [id number] 1956 Unknown [id number] 2.16.840.1.129064.3.579.2 .593 1956 Unknown [id number] 2.16.840.1.403794.3.579.2 .593 1956 Unknown [id number] 2.16.840.1.330642.3.579.2 .1259 1956 Unknown [id number] 2.16.840.1.007872.3.579.2 .1259 1956 Unknown [id number] 2.16.840.1.809015.3.579.2 .1259 1956 Unknown [id number] 2.16.840.1.159741.3.579.2 .727 1956 Unknown [id number] 2.16.840.1.622016.3.579.2 .174 1956 Unknown [id number] 2.16.840.1.882783.3.579.2 .174 1956 Unknown [id number] 2.16.840.1.756548.3.579.2 .174 1956 Unknown [id number] 2.16.840.1.235471.3.579.2 .174 1956 Unknown [id number] 2.16.840.1.381895.3.579.2 .174 1956 Unknown [id number] 2.16.840.1.775624.3.579.2 .174 1956 Unknown [id number] 2.16.840.1.163424.3.579.2 .174 1956 Unknown [id number] 2.16.840.1.769354.3.579.2 .174 1956 Unknown [id number] 2.16.840.1.803967.3.579.2 .174 1956 Unknown [id number] 2.16.840.1.981248.3.579.2 .174 Self-pay Self Pay [id number] Social History Date Type Detail Facility Start: 03-14-2019 End: 01-10-2024 Tobacco smoking status TXIS Never smoker [facility] Start: 03-14-2019 End: 06-02-2024 Alcohol intake No [facility] Start: 1955 Sex Assigned At Not on file [place] Start: 10-10-2019 End: 06-05-2024 Alcohol intake Current non-drinker of alcohol (finding) [place] Exposure to SARS-CoV-2 (event) Unable to assess [place] Start: 10-10-2019 End: 01-10-2024 Tobacco use and exposure Never used [place] Tobacco smoking status Never [facility] Start: 04-14-2022 History 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 Start: 07-13-2023 End: 04-11-2024 Alcohol intake Lifetime non-drinker (finding) [facility] Start: 07-13-2023 End: 06-02-2024 [address] of [address] [facility] Start: 1955 Sex Assigned At Female F [facility] How often to you hav e a drink containing alcohol? Never [facility] (I/We) worried whether (my/our) food would run out before (I/we) got money to buy more. Never true [facility] Start: 06-08-2024 Sex Female (finding) [facility] NEGATED: Highlighted rowStart: NAGIF History of tobacco use Passive smoker [facility] Clinical Notes 08-12-2021 to 06-22-2024 Brenda Potter RN - 06/22/2024 10:24 AM Lianet Cooper RCP - 06/02/2024 9:15 AM Alexander Goodman RN - 06/02/2024 9:08 AM Alexander Goodman RN - 06/02/2024 9:01 AM ESTDischarge Instructions Note Date & Type Note Facility 06-22-2024 History of Present illness Narrative Pt malcom procedure well, snack and beverage provided. documented in this encounter [facility] 06-02-2024 History of Present illness Narrative The patient was educated on the use of a epatch monitor. The patient's comprehension was high. The patient was able to verbalize recall. The patient was instructed on how and when to return the monitor. documented in this encounter [facility] 06-02-2024 History of Present illness Narrative [...] patient to operate motor Vehicle. Yes Dr. Aguayo called per song writer- notified of lab results. Dr. Aguayo states he is aware, patient continues to be normal sinus rhythm on monitor and free of pauses since being in phase II recovery. Dr. Aguayo states we are good to put the school bus monitor on her and discharge her home. Alexander Zazueta RN 06/02/2024 0902 [facility] Preadmission Testing Name: Kathryn Giordano : 1955 Patient (home) Procedure: Colonoscopy Date of Procedure: 06/02/2024 Surgeon: Carlos Aguayo MD Ht: 162.6 cm (5' 4 ) [...] [x] Ride Home [x] No Jewelry/Contact Lenses/Nail Yakut [x] Prep/Lax/Clear Liquids [] Chlorhexidene DOS Patient Needs [] HCG [x] Blood Sugar [] PT/INR [] T&S Do you have any metal allergies? [] Yes [] No If yes, to what metals: Patient instructed on the pre-operative, intra-operative, and post-operative process? Yes Medication instructions reviewed with patient? Yes documented in this encounter [facility] 06-02-2024 Hospital Discharge instructions Carlos Aguayo MD - 06/02/2024 7:37 AM EST Discharge Instructions Admission Date: 06/02/2024 Discharge Date: 06/02/24 Disposition: Home Activity: As tolerated Diet: Diabetic Discharge Instructions: Resume previous home medication. Follow Up: With your primary care physician (Dr. Douglas) in 2 weeks. documented in this encounter [facility] 04-11-2024 History of Present illness Narrative [...] back as needed documented in this encounter [facility] 03-20-2024 History of Present illness Narrative Subjective [...] couple of weeks. documented in this encounter [facility] 07-13-2023 History of Present illness Narrative Subjective [...] reviewed Shoes reviewed and orthotics PCP Dr. Douglas DLS 07/08/2023 documented in this encounter [facility] 07-05-2023 Hospital Discharge instructions Patient Education 07/05/2023 [...] Up Care 06/02/2023 13:34:18 With:Freddy KRAUS Address: [address] [place], [place] [id number] Business (1) When: Unknown Comments:As we discussed, your bladder looks good. Evidence of prior scars. The plan will be for a repeat scope in about 1 year provided the FISH test is negative.Please finish your antibiotic.Have a great day. [facility] 07-05-2023 Note [id number] [facility] 07-05-2023 Note Cystoscopy ? Voiding after the [...] you have a fever over 100 degrees. [facility] 07-05-2023 Evaluation + Plan note Diagnostic Tests PendingUroVysion Fish and Urine Cyto ([facility]) 07/05/23 [facility] 09-07-2022 Evaluation note Encounter Date Diagnosis Assessment Notes Aug, Cough variant asthma (ICD-10 - J45.991) Aug, Gastro-esophage al reflux disease without esophagitis (ICD-10 - K21.9) Aug, Seasonal allergic rhinitis due to pollen (ICD-10 - J30.1) Aug, Obstructive sleep apnea (ICD-10 - G47.33) [employer] Other 02-08-2023 History of Present illness Narrative* Marichuy Zazueta - 07/08/2022 2:00 PM EST Physical Therapy [facility] Date: 07/08/2022 Patient Name: Kathryn Giordano : 1955 Pt Cancelled Appt due to Illness Marichuy Zazueta Date: 07/08/2022 documented in this encounterBON [employer] Phone: [phone] Evaluation note* Encounter Date Diagnosis Assessment Notes Treatment Notes Treatment Clinical Notes Apr, Cough (ICD-10 - R05.9) Apr, COVID-19 (ICD-10 - U07.1) Today you tested positive for the COVID virus. This mean you need to follow all CDC quarantine guidelines found at [email or web address] v. It is important to rest, increase [...] PCP IF MEDICATION NEEDS TO BE ADJUSTED. [employer] Other 11-14-2022 Hospital Discharge instructions Patient Education [...] degrees. Follow Up Care 03/24/2022 10:01:15 With:Freddy NAYANA Address: [facility] [place] [address]- Business (1) When: Unknown Comments:The plan will be to repeat the scope in about 1 year. Please call for any development of blood or clots in the urine.Please finish your antibiotic. Have a great day! [facility]11-14-2022 Evaluation + Plan note Diagnostic Tests Pending * Uro[facility] Fish and Urine Cyto ([facility]) 04/13/22 [facility]05-01-2022 Evaluation note* Encounter Date Diagnosis Assessment [...] understanding and is agreeable with treatment plan 01 May, 2022 Contact with and (suspected) exposure to other viral communicable diseases (ICD-10 - Z20.828) September, Other Additional time spent conducting pre-visit phone call, screening for symptoms, instructions on social distancing, application and removal of PPE, and cleaning of examination room, equipment and supplies was preformed. Patient education given for testing methodology and results. Patient care instructions given in writting by [facility] Care At Home document [employer] Other 04-09-2022 Evaluation note* Encounter Date Diagnosis [...] develops Watch carb intake while taking steroids [employer] Other 03-15-2022 Evaluation note* Encounter Date Diagnosis Assessment Notes Treatment Notes Treatment Clinical Notes Jul, Cough variant asthma (ICD-10 - J45.991) [employer] Other Evaluation noteNo InformationNort [employer] Other Evaluation note* Diagnosis Encounter for screening mammogram for malignant neoplasm of breast Other screening mammogram documented in this encounter [facility] Work Phone: evaluation note* Diagnosis Diabetic polyneuropathy associated with type 2 diabetes mellitus (CMS/HCC)- Primary Hammer toes of both feet documented in this encounter [facility] Diagnosis Onset Date Resolution Status Allergic rhinitis acute Asthma exacerbation, mild ac kip GERD (gastroesophageal reflux disease) acute Obesity acute Peripheral eosinophilia acut e BMI 39.0-39.9,adult resolved Allergic rhinitis acute GERD (gastroesophageal reflux disease) acute Mild intermittent asthma, uncomplicated acute Obesity acute Peripheral eosinophilia acut e [facility] Work Phone: Evaluation noteNo assessment information available [facility] Work Phone: Evaluation note* Diagnosis Acute laryngitis- Primary documented in this encounter [facility] HealthcareEvaluation note* Diagnosis Acute laryngitis- Primary documented in this encounter [facility] HealthcareEvaluation note* Diagnosis Pre-op testing Preoperative examination, unspecified Encounter for screening colonoscopy Special screening for malignant neoplasms, colon [facility] Diagnosis Encounter for screening mammogram for malignant neoplasm of breast Other screening mammogram Encounter for screening colonoscopy Special screening for malignant neoplasms, colon documented in this encounter [facility] note* Diagnosis Sinus bradycardia- Primary Other specified cardiac dysrhythmias Sinus pause Other heart block documented in this encounter [facility] note* Diagnosis Sinus bradycardia Other specified cardiac dysrhythmias Sinus pause Other heart block [facility]* Diagnosis Onset Date Resolution Status Admit Date Allergic rhinitis acute June 08, 2024 10:20am Arrhythmia acute June 08 10:20am GERD (gastroesophageal reflu x disease) acute June 08 10:20am Hypersomnia acute June 08, 2024 10:20am Mild intermittent asthma, uncomplicated acute June 08 10:20am Moderate persistent asthma, uncomplicated acute June 08 10:20am Obesity acute June 08 10:20am LINDSAY (obstructive sleep apnea) acute June 08, 2024 10:20am Peripheral eosinophilia acute J anuary 2024 10:20am Recurrent respiratory infection acut e June 08, 2024 10:20am [facility] Work Phone: Evaluation note* Diagnosis Sinus bradycardia- Primary Other specified cardiac dysrhythmias Chest pain, unspecified type Shortness of breath Essential hypertension, benign Mixed hyperlipidemia Chest pain, unspecified type Shortness of breath [facility] Diagnosis Sinus bradycardia- Primary Other specified cardiac dysrhythmias Chest pain, unspecified type Shortness of breath Essential hypertension, benign Mixed hyperlipidemia Chest pain, unspecified type Shortness of breath [facility] Narrative - Reported* Type Description Date [...] TVC 03/17/2019 Surgical History polyp removed from 2018 Hospitalization History See Sx [employer] Other History general Narrative - Reported* Type Description Date [...] TVC 03/17/2019 Surgical History polyp removed from 2018 Hospitalization History See Sx [employer] Other Hospital course Narrative No data available for this section [facility] No data available for this section [facility] (Routine) - Open Specialty Diagnoses / Procedures Referred By Manoj castaneda Referred To Contact Cardiology Diagnoses Chest pain, unspecified type Shortness of breath Procedures Nuclear stress test with myocardial perfusion Kraig Alford DO [address] [place] [address] Referral ID Status Reason Start Date Expiration Date Visits Re quested Visits Authorized [id number] Open 06/21/2024 06/21/2025 3 3 [employer] IncReason for visit Narrative* (Routine) - Open Specialty Diagnoses / Procedures Referred By Contac t Referred To Contact Cardiology Diagnoses Chest pain, unspecified type Shortness of breath Procedures Nuclear stress test with myocardial perfusion Kraig Alford DO [address] [place] [address] Referral ID Status Reason Start Date Expiration Date Visits Re quested Visits Authorized [id number] Open 06/21/2024 06/21/2025 3 3 [facility] [place] [employer] Summary Purpose Family History Relationship Condition Age [...] Communication Valentino Ma Spouse Primary Decision Maker [phone] ([employer]) Documents on File Type Date Recorded Patient Turf Keeper Expl anation Advance Directives and Living Will Power of Blender/Braze Applicator Latest Code Status on File Code Status Date Activated Date Inactivated Comments Full Code 06/19/2013 7:02 AM 06/19/2013 4:52 PM Documents on File Type Date Recorded Patient Turf Keeper Expl anation ACP-Advance Directive ACP-Power of Blender/Braze Applicator Documents on File Type Date Recorded Patient Turf Keeper Expl anation ACP-Advance Directive ACP-Power of Blender/Braze Applicator Latest Code Status on File Code Status Date Activated Date Inactivated Comments Full Code 06/19/2013 7:02 AM 06/19/2013 4:52 PM Documents on File Type Date Recorded Patient Turf Keeper Expl anation Advance Directives and Living Will Power of Blender/Braze Applicator Healthcare Agents on File Name Relationship Healthcare Agent Relationshi p Communication Valentino Ma Spouse Primary Decision Maker Healthcare Agents on File Name Relationship Healthcare Agent Relationshi p Communication Valentino Weidenger Spouse Primary Decision Maker 56 (Mobile) Advance Directive Response Recorded Date/ Time Advance Directives No April 12:29pm Date Activated Date Inactivated Comments 06/19/2013 7:02 AM 06/19/2013 4:52 PM Healthcare Agents on File Name Relationship Healthcare Agent Relationship Communication Valentino Weidenger Spouse Primary Decision Maker 56 (Mobile) Healthcare Agents on File Name Relationship Healthcare Agent Relationship Communication Valentino Weidenger Spouse Primary Decision Maker 56 (Mobile) Date Activated Date Inactivated Comments 06/02/2024 6:40 AM Healthcare Agents on File Name Relationship Healthcare Agent Relationship Communication Valentino Weidenger Spouse Primary Decision Maker 56 (Mobile) Advance Directive Response Recorded Date/ Time Advance Directives No June 08, 2024 11:06am Healthcare Agents on File Name Relationship Healthcare Agent Relationship Communication Valentino Weidenger Spouse Primary Decision Maker 56 (Mobile) Healthcare Agents on File Name Relationship Healthcare Agent Relationship Communication Valentino Weidenger Spouse Primary Decision Maker 56 (Mobile) Healthcare Agents on File Name Relationship Healthcare Agent Relationship Communication Valentino Weidenger Spouse Primary Decision Maker 56 (Mobile) Healthcare Agents on File Name Relationship Healthcare Agent Relationship Communication Valentino Weidenger Spouse Primary Decision Maker 56 (Mobile) Assessments Diagnosis Metallic taste Disturbances of sensation [...] RENEE DIGITAL SCREEN BILATERAL Suzanne Douglas MD [address] [place] [address] [facility] [address] [place] [address] Status Reason Specialty Diagnoses / Procedures Referre d By Contact Referred To Contact Closed Radiology Diagnoses Encounter for screening mammogram for breast cancer Procedures THIERNO DIGITAL SCREEN W OR WO CAD BILATERAL Suzanne Douglas MD [address] [place] [address] Specialty Diagnoses / Procedures Referred By Contac t Referred To Contact Radiology Diagnoses Encounter for screening mammogram for malignant neoplasm of breast Procedures THIERNO RENEE DIGITAL SCREEN BILATERAL Suzanne Douglas MD [address] [place] [address] Referral ID Status Reason Start Date Expiration Date Visits Re quested Visits Authorized [id number] Closed 04/15/2022 04/15/2023 1 1 Specialty Diagnoses / Procedures Referred By Contac t Referred To Contact Cardiology Diagnoses Pre-op testing Procedures EKG 12 Lead Carlos Aguayo MD [address] [place] [address] Referral ID Status Reason Start Date Expiration Date Visits Re quested Visits Authorized [id number] Open 05/18/2024 05/18/2025 1 1 Referral ID Status Reason Start Date Expiration Date Visits Re quested Visits Authorized [id number] Closed 05/20/2024 05/20/2025 1 1 Specialty Diagnoses / Procedures Referred By Contac t Referred To Contact Diagnoses Sinus bradycardia Sinus pause Procedures Extended cardiac holter monitor (3 days-14 day) VA EXTERNAL ECG REC>48HR<7D REVIEW & INTERPRETATION VA EXTERNAL ECG REC>48HR<7D RECORDING VA EXTERNAL ECG REC>7D<15D RECORDING VA EXTERNAL ECG REC>7D<15D REVIEW & INTERPRETATION Carlos Aguayo MD [address] [place] [address] Referral ID Status Reason Start Date Expiration Date V isits Requested Visits Authorized [id number] Not Required - RTA 06/02/2024 06/02/2025 1 1 Specialty Diagnoses / Procedures Referred By Contac t Referred To Contact Cardiology Diagnoses Chest pain, unspecified type Shortness of breath Procedures Echo (TTE) complete (PRN contrast/bubble/strain/3D) VA ECHO TTHRC R-T 2D W/WOM-MODE COMPL SPEC&COLR D VA TTE W OR WO FOL WCON,DOPPLER Kraig Alford DO [address] [place] [address] Referral ID Status Reason Start Date Expiration Date V isits Requested Visits Authorized [id number] Not Required - RTA 06/21/2024 06/21/2025 1 1 Chief Complaint and Reason for Visit Chief Complaint 1 year f/u- Cough Va riant Asthma GERD LINDSAY 2 mo f/u Asthma, Cough Reason for Visit Allergic rhinitis Asthma exacerbation, mild GERD (gastroesophageal reflux disease) Obesity Peripheral eosinophilia BMI 39.0-39.9,adult Allergic rhinitis GERD (gastroesophageal reflux disease) Mild intermittent asthma, uncomplicated Obesity Peripheral eosinophilia Chief Complaint Cough, sinus drainag e Chief Complaint Admit Date CIGAR BANDER: 6 mo f/u Asthma, Allergic Rhinitis June 08, 2024 10:20am Reason for Visit Admit Date Allergic rhinitis June 08, 2024 10 :20am Arrhythmia June 08, 2024 10 :20am GERD (gastroesophageal reflux disease) J anuary 2024 10:20am Hypersomnia June 08, 2024 10 :20am Mild intermittent asthma, uncomplicated June 08, 2024 10:20am Moderate persistent asthma, uncomplicate d June 08, 2024 10:20am Obesity June 08, 2024 10 :20am LINDSAY (obstructive sleep apnea) May 10:20am Peripheral eosinophilia June 08 10:20am Recurrent respiratory infection June 08, 2024 10:20am Additional Source Comments INFORMATION SOURCE (unrecogn ized section and content) DATE CREATED AUTHOR 05/21/2018 [facility] DATE CREATED AUTHOR AUTHOR'S ORGANIZ ATION 10/18/2021 [facility] DATE CREATED AUTHOR AUTHOR'S ORGANIZ ATION 07/09/2022 [facility] DATE CREATED AUTHOR AUTHOR'S ORGANIZ ATION 04/13/2024 [facility] DATE CREATED AUTHOR AUTHOR'S ORGANIZ ATION 06/19/2024 Singh Zechariah [facility] DATE CREATED AUTHOR AUTHOR'S ORGANIZ ATION 06/25/2024 Suzy Bedolla [facility] Reason for Visit (unrecogniz ed section and content) Status Reason Specialty Diagnoses / Procedures Referre d By Contact Referred To Contact Closed Radiology Diagnoses Visit for screening mammogram Procedures THIERNO RENEE DIGITAL SCREEN BILATERAL Suzanne Douglas MD [address] [place] [address] [facility] [address] [place] [address] Status Reason Specialty Diagnoses / Procedures Referre d By Contact Referred To Contact Closed Radiology Diagnoses Encounter for screening mammogram for breast cancer Procedures THIERNO DIGITAL SCREEN W OR WO CAD BILATERAL Suzanne Douglas MD [address] [place] [address] Specialty Diagnoses / Procedures Referred By Manoj castaneda Referred To Contact Radiology Diagnoses Encounter for screening mammogram for malignant neoplasm of breast Procedures THIERNO RENEE DIGITAL SCREEN BILATERAL Suzanne Douglas MD [address] [place] [address] Referral ID Status Reason Start Date Expiration Date Visits Re quested Visits Authorized [id number] Closed 04/15/2022 04/15/2023 1 1 Specialty Diagnoses / Procedures Referred By Manoj castaneda Referred To Contact Physical Therapist / Physical Therapy Diagnoses Acute pain of right shoulder Suzanne Douglas MD [address] [place] [address] [facility] [address] [place] [address] Referral ID Status Reason Start Date Expiration Date V isits Requested Visits Authorized [id number] Open Specialty Services Required 07/01/2022 07/01/2023 1 1 Reason Comments DM Foot Care Here for yearly diab etic foot check. Reason Comments Cough Established patient, cough Reason Comments Cough 3 week tavia Referral ID Status Reason Start Date Expiration Date Visits Re quested Visits Authorized [id number] Closed 05/20/2024 05/20/2025 1 1 Specialty Diagnoses / Procedures Referred By Manoj castaneda Referred To Contact Diagnoses Encounter for screening colonoscopy Encounter for screening colonoscopy [Z12.11] Procedures VA COLONOSCOPY FLX DX W/COLLJ SPEC WHEN PFRMD VA COLSC FLX W/RMVL OF TUMOR POLYP LESION SNARE TQ VA COLONOSCOPY W/BIOPSY SINGLE/MULTIPLE COLONOSCOPY Carlos Aguayo MD [address] [place] [address] [facility] [id number] [place] [address] Referral ID Status Reason Start Date Expiration Date Visits Re quested Visits Authorized [id number] 1 1 Specialty Diagnoses / Procedures Referred By Manoj castaneda Referred To Contact Cardiology Diagnoses Chest pain, unspecified type Shortness of breath Procedures Echo (TTE) complete (PRN contrast/bubble/strain/3D) [facility] ECHO TTHRC R-T 2D W/WOM-MODE COMPL SPEC&COLR D VA TTE W OR WO FOL WCON,DOPPLER Kraig Alford DO [address] [place] [address] Referral ID Status Reason Start Date Expiration Date V isits Requested Visits Authorized [id number] Not Required - RTA 06/21/2024 06/21/2025 1 1 Patient Care team informatio n (unrecognized section and content) [employer] Relationship Specialty Start Date End Date Suzanne Douglas MD [address] [place] [address] PCP - General Family Medicine 10/27/17 [employer] Relationship Specialty Start Date End Date Suzanne Douglas MD [address] [place] [address] PCP - General Family Medicine 10/27/17 [employer] Relationship Specialty Start Date End Date Suzanne Douglas MD [address] [place] [address] PCP - General Family Medicine 07/13/23 [employer] Relationship Specialty Start Date End Date Suzanne Douglas MD [address] [place], [place] [phone] PCP - General Family Medicine 07/13/23 Team [...] 09, 2024 End: March 09, 2024 Shannon Ocampo APRN Attending Provider Active Start: March 09, 2024 End: March 09, 2024 [employer] Relationship Specialty Start Date End Date Suzanne Douglas MD [address] [place], [place] [phone] PCP - General Family Medicine 07/13/23 Haider Lopez MD [address] [place] [phone] Referring Physician Family Medicine 03/20/24 Neftaly Mcmanus DO [address] [place] [address] Otolaryngology 03/20/24 [employer] Relationship Specialty Start Date End Date Suzanne Douglas MD [address] [place], [place] [phone] PCP - General Family Medicine 07/13/23 Haider Lopez MD [address] [place] [phone] Referring Physician Family Medicine 03/20/24 Neftaly Mcmanus DO [address] [place] [address] Otolaryngology 03/20/24 [employer] Relationship Specialty Start Date End Date Suzanne Douglas MD [address] [place], [place] [phone] PCP - General Family Medicine 07/13/23 Haider Lopez MD [address] [place] [phone] Referring Physician Family Medicine 03/20/24 Neftaly Mcmanus DO [address] [place] [address] Otolaryngology 03/20/24 [employer] Relationship Specialty Start Date End Date Suzanne Douglas MD [address] [place] [phone] PCP - General Family Medicine 10/27/17 [employer] Relationship Specialty Start Date End Date Suzanne Douglas MD [address] [place] [address] PCP - General Family Medicine 10/27/17 [employer] Relationship Specialty Start Date End Date Suzanne Douglas MD [address] [place] [phone] PCP - General Family Medicine 10/27/17 [employer] Relationship Specialty Start Date End Date Suzanne Douglas MD [address] [place] [phone] PCP - General Family Medicine 10/27/17 Team Status: Inactive Member Role Status Dates Suzanne Douglas MD Primary Care Provider Active Start: June 08, 2024 End: June 08, 2024 Blaise Lassiter DO Attending Provider Active St art: June 08, 2024 End: June 08, 2024 [employer] Relationship Specialty Start Date End Date Suzanne Douglas MD [address] [place] [phone] PCP - General Family Medicine 10/27/17 [employer] Relationship Specialty Start Date End Date Suzanne Douglas MD [address] [place] [phone] PCP - General Family Medicine 10/27/17 [employer] Relationship Specialty Start Date End Date Suzanne Douglas MD [address] [place], [place] [phone] PCP - General Family Medicine 10/27/17 [employer] Relationship Specialty Start Date End Date Suzanne Douglas MD [address] [place] [address] PCP - General Family Medicine 10/27/17 Goals [...] BE BASED ON THE PRIMARY CLINICAL RECORDS. [facility]. provides no warranty or guarantee of the accuracy or completeness of information in this document.
--- NOTE | 2024-06-28 14:00 | RT_ITS ---
[facility] Test Date: 2024-06-28 Pat Name: TULIO HARGROVE Department: Room: - Gender: Female Rn Home Health: Adrianna Murray RRT : 1955 Requested By: Blaise Lassiter Order Number: [id number] Reading MD: Blaise Lassiter Interpretive Statements Pulmonary function testing was completed according to ATS criteria. Findings were considered accurate and reproducible. No bronchodilator was administered due to normal spirometric values. Spirometry: -FEV1/FVC: Normal @ 85% -FEV1: Normal @ 91% -FVC: Normal @ 82% Lung volumes by plethysmography: -RV: Increased @ 122% -TLC: Normal @ 103% Diffusion capacity: -DLCO: Normal @ 84% when corrected for Hb 12.7g/dL Flow-volume loop: -Normal shape Impressions: -Essentially normal PFT. If asthma remains in the differential, may consider methacholine challenge testing. Clinical correlation required. Electronically Signed On 06-28-2024 19:17:33 EST by Blaise Lassiter
== END 2024-06-28 12:53 | disposition home or self-care (01) ==
LOC: CARD 12:52
PROVIDERS: PCP Internal Medicine; Visit Provider Internal Medicine
DX: J45.40 Moderate persistent asthma, uncomplicated (principal); J98.8 Other specified respiratory disorders
CPT/HCPCS: 94010; 94726; 94729

== ENCOUNTER 2024-07-03 19:48 | Outpatient (OUT) | payer MEDICARE, SELFPAY ==
--- OUTSIDE RECORDS SUMMARY | 2024-07-03 19:51 | XMS_ITS | CCD ---
Author Organization [facility] ion Partnership [facility] Care Team Providers Care Launch Commander [place] [employer] Name Role Phone NO, PHYSICIAN Unavailable Unavailable Suzanne Douglas Primary Care Provider Suzanne Douglas Primary Care Provider German Miranda Unavailable Charline Wilburn Unavailable Anais Farley Unavailable Mary Anne Chan Unavailable SUZANNE DOUGLAS Primary Care Physician [phone] Suzanne Douglas MD Primary Care Provider DR CHIKI MONIQUE Admitting Unavailable MISC, DR ZEPEDA Primary Care Unavailable ENEIDA, DR MONET Consulting Unavailable ENEIDA, DR MONET Attending Unavailable VERHOALIN, DR SUZANNE Rosales Consulting Unavailable VERHOALIN, DR SUZANNE Rosales Attending Unavailable VERHOALIN, DR SUZANNE Rosales Admitting Unavailable Suzanne Douglas MD Primary Care Provider Haider Lopez MD Unavailable Neftaly Mcmanus DO Unavailable [phone] MARY ANNE BABB Attending Unavailalessandra e NEFTALY [...] sources) Losartan Drug Allergy 4 Swelling, Rash [place], [place] (20 sources) montelukast; Translations: [montelukast] Drug Allergy 1 Rash, hives, Urticaria (disorder) [place], [place] (2 sources) montelukast; Translations: [Singulair] Drug Allergy 1 [facility] Repository Medications Current Medications Medication [...] Print Requisition Start Date: 04/21/11 Status: Ordered [id number] 200 actuat albuterol 0.09 mg/actuat metered dose [...] Start: 08-28-2019 take 1 capsule by mo [facility] three times daily as needed for cough [...] afterwards, # 2 tab(s), Refills(s) 0, Pharmacy: [facility]/pharmacy #[id number] Start Date: 06/03/23 Status: Ordered Start: 03-13-2021 Cipro 500 mg T ab See Instructions, Take 1 tab day prior to procedure and 1 tab day of procdure - afterwards, # 2 tab(s), Refills(s) 0, Pharmacy: [facility]/pharmacy #[id number], 165, cm, 04/03/21 14:42:00 EDT, Height/Length Dosing, 105.9, kg, 04/03/21 14:42:00 EDT, Weight Dosing Start Date: 03/24/22 Status: Ordered docosahexaenoic acid 120 mg / eicosapentaenoic acid 180 mg oral capsule (20 sources) take 1 capsule by mouth once daily [place]-3 Fatty Acids (FISH OIL) 1000 MG CAPS Take 1 capsule by mouth daily Active docosahexaenoic acid 1000 mg / omega-3 acid ethyl esters (intermediate) 300 mg delayed release oral capsule (3 sources) [place]-3 Fatty Ac ids (FISH OIL) 1000 MG [...] Ipratropium Br omide 42 mcg (0.06 %) Hen[place],Non-Aerosol Active 2 PERCENT INTRANASAL Every morning May 12, 2018 12:00am take 2 drop(s) nasal route three times daily as needed Ipratropium [place] 0.06 % 2 drops in each nostril [...] solution (3 sources) Start: 05-11-2024 End: 06-02-2024 ouvmsu-puttubpai-hbt sulfate (SUPREP BOWEL PREP KIT) 17.5-3.13-1.6 GM/177ML [...] (ZINC PO) Take by mouth 0 Active Uyvsmrao-Gtz-Bacy-Fa-Vit K-Lut (Multivitamin Women 50 Plus) 8 mg iron-400 mcg-300 mcg Tablet (3 sources) Start: 03-09-2019 take 1 tablet by mouth once daily Grrugysj-Anf-Dhvp-Fa-Vit K-Lut (Multivitamin Women 50 Plus) 8 mg iron-400 mcg-300 mcg Tablet Active 1 TAB PO Daily March 08, 2019 11:00pm Start: 03-09-2019 take 1 tablet by harlan th once daily Gbodaqpl-Nop-Xdpe-Fa-Vit K-Lut (Multivitamin Women 50 Plus) 8 mg iron-400 mcg-300 mcg Tablet Active 1 TAB PO Daily March 09, 2019 12:00am Multivitamins (7 sources) take 1 tablet by mouth once daily Multivitamins 1 tab(s) Orally Daily Active Multivitamins and Minerals (2 sources) Start: 04-15-2011 Multivitamins and Minerals Refill(s) 0 Start Date: 04/15/11 Status: Ordered [place] 3-Wli-Bqc-Fish Oil (Fish Oil) 300-1,000 mg Capsule,Delayed Release(Dr/Ec) (3 sources) Start: 05-12-2018 take 300-1000 mg by mouth once daily [place] 6-Eup-Rgu-Fish Oil (Fish Oil) 300-1,000 mg Capsule,Delayed Release(Dr/Ec) Active 1 CAP PO Daily May 12, 2018 12:00am Start: 05-12-2018 take 300-1000 mg by mouth once daily [place] 8-Txj-Bau-Fish Oil (Fish Oil) 300-1,000 mg Capsule,Delayed Release(Dr/Ec) [...] 30, 2023 12:00am December 09, 2023 11:00am Wiebwmvn-Lpt-Otqyxmk Fumarate (Multi Vitamin) 9 mg iron/15 mL Liquid (3 sources) Start: 05-12-2018 End: 03-09-2019 take 1 tablet by mouth once daily Bqnclgwy-Iaf-Pbmlxmj Fumarate (Multi Vitamin) 9 mg iron/15 mL Liquid Discontinued 1 TAB PO Daily May 12, 2018 12:00am March 09, 2019 7:36am Start: 05-12-2018 End: 03-09-2019 take 1 tablet by mouth once daily Lkvryosr-Zrv-Konsphh Fumarate (Multi Vitamin) 9 mg iron/15 mL [...] 06-22-2024 Baseline Diastolic BP 70 mmHg [facility] Work Phone: Baseline HR 72 BPM [facility] [employer] Work Phone: Baseline Systolic BP 151 mmHg [facility] Work Phone: Nuc Stress EF 77 % [facility] Work Phone: Stress Diastolic BP 70 mmHg [facility] [employer] Work Phone: Stress Estimated Workload 1.0 METS [facility] Work Phone: Stress Peak HR 91 BPM [place] [facility] [employer] Work Phone: Stress Percent HR Achieved 60 % [facility] Work Phone: Stress Rate Pressure Product 91054 BPM*mmHg [facility] Work Phone: Stress Systolic BP 151 mmHg [facility] [employer] Work Phone: Stress Target HR 152 bpm [facility] [employer] Work Phone: TID 1.05 [facility] Work Phone: [facility] Work Phone: No Panel Informationon 06-22 Stress [...] The study is positive for myocardial ischemia. [facility] CV [facility] STRESS Radiology Study observation (narrative) [facility] Reminderson 06-19-2024 Reminders Reminders -- From: Jodi Fisher To: EU - Recalls Cook; Sent: 07/07/2023 11:29:44 EST Show up: 06/05/2024 11:29:00 EST Subject: Recall: Scope 07/2024 Due Date/Time: 06/05/2024 11:29:00 EST Reminder/Recall Schedule repeat testing. Test: Cystoscopy (FISH/Cytol) Test due in: 12 months Left message requesting pt to call office Pt is scheduled Normal [facility] Basic Metabolic Panelon Anion gap [Moles/Vol] 11 mmol/L 9 - 17 mmol/L [facility] [employer] Calcium [Mass/Vol] 9.5 mg/dL 8.6 - 10. 4 mg/dL [facility] Chloride [Moles/Vol] 100 mmol/L 98 - 10 7 mmol/L [facility] CO2 [Moles/Vol] 26 mmol/L 20 - 31 mmol/L [facility] Creatinine [Mass/Vol] 0.7 mg/dL 0.5 - 0.9 mg/dL [facility] [employer] EstJessica Rate - PINF [facility] 1jiajie Comment on above: These results are not [...] 185 mg/dL High 70 - 99 mg/dL [facility] [employer] Interpretation and review of laboratory results Abnormal [facility] Potassium [Moles/Vol] 3.8 mmol/L 3.7 - 5.3 mmol/L [facility] Sodium [Moles/Vol] 137 mmol/L 135 - 144 mmol/L [facility] Urea nitrogen [Mass/Vol] 18 mg/dL 8 - 23 mg/dL [facility] Urea nitrogen/Creatinine [Mass ratio] 26 mg/mg High 9 - 20 [facility] Basic Metabolic Profon 06-02 Anion gap [Moles/Vol] 11 mmol/L Normal 9-17 [facility] Comment on above: Performed By: #### M Allie BMP, TROPI #### [facility] [address] [place], [place] [id number] Cmv Driver: Naldo Tinsley MD BUN/CRE Ratio 26 High - [facility] Comment on above: Performed By: #### M AGUSTÍN Kelley, TROPI #### [facility] [address] [place], [place] [id number] [employer]mv Driver: Naldo Tinsley MD Calcium [Mass/Vol] 9.5 mg/dL Normal 8.6-10.4 [facility] Comment on above: Performed By: #### M Allie, BMP, TROPI #### [facility] [address] [place], [place] [id number] Cmv Driver: Naldo Tinsley MD Chloride [Moles/Vol] 100 mmol/L Normal 98-107 [facility] Comment on above: Performed By: #### M Allie, BMP, TROPI #### [facility] [address] [place], [place] [id number] Cmv Driver: Naldo Tinsley MD CO2 [Moles/Vol] 26 mmol/L Normal 20-31 [facility] Comment on above: Performed By: #### M Allie, BMP, TROPI #### [facility] [address] [place], [place] [id number] Cmv Driver: Naldo Tinsley MD Creatinine [Mass/Vol] 0.7 mg/dL Normal 0.5-0.9 [facility] Comment on above: Performed By: #### AGUSTÍN Navarrete TROPI #### [facility] [address] [place] [address] Cmv Driver: Naldo Tinsley MD GFR/1.73 sq M.predicted among non-blacks MDRD (S/P/Bld) [Vol rate/Area] mL/min/{1.73_m2} Normal >60 [facility] Comment on above: Result Comment: These [...] Performed By: #### AGUSTÍN Navarrete TROPI #### [facility] [address] [place] [address] Cmv Driver: Naldo Tinsley MD Glucose [Mass/Vol] 185 mg/dL High 70-99 [facility] Comment on above: Performed By: #### AGUSTÍN Navarrete TROPI #### [facility] [address] [place] [address] Cmv Driver: Naldo Tinsley MD Potassium [Moles/Vol] 3.8 mmol/L Normal 3.7-5.3 [facility] Comment on above: Performed By: #### AGUSTÍN Navarrete, TROPI #### [facility] [address] [place] [address] Cmv Driver: Naldo Tinsley MD Sodium [Moles/Vol] 137 mmol/L Normal 135-144 [facility] Comment on above: Performed By: #### AGUSTÍN Navarrete, TROPI #### [facility] [address] [place] [address] Cmv Driver: Naldo Tinsley MD Urea nitrogen [Mass/Vol] 18 mg/dL Normal 8-23 [facility] Comment on above: Performed By: #### AGUSTÍN Navarrete, TROPI #### [facility] [address] [place] [address] Cmv Driver: Naldo Tinsley MD Magnesiumon 06-02-2024 Magnesium [Mass/Vol] 1.8 mg/dL 1.6 - 2 .6 mg/dL [facility] Magnesium [Mass/Vol] 1.8 mg/dL Normal 1.6-2.6 [facility] Comment on above: Performed By: #### AGUSTÍN Navarrete, TROPI #### [facility] [address] [place] [address] Cmv Driver: Naldo Tinsley MD No Panel Informationon 06-02 [facility] Troponinon 06-02-2024 Troponin I.cardiac High sensitivity method [Mass/Vol] 13 ng/L 0 - 14 ng/L [facility] Comment on above: High Sensitivity Tro ponin values cannot be compared with other Troponin methodologies. [facility] Troponin, High Sens 13 ng/L Normal 0-14 [facility] Comment on above: Result Comment: High Sensitivity Troponin values cannot be compared with other Troponin methodologies. Performed By: #### AGUSTÍN Navarrete, TROPI #### [facility] [address] [place] [address] Cmv Driver: Naldo Tinsley MD DBT Breast - bilateral scree nagin 05-23-2024 OVERALL ASSESSMENT: BIRADS: 1 Negative, no evidence of malignancy. A letter of notification will be mailed to the patient. Performing Facility: [facility] [address] [address] [facility] RIS CONSOLIDATED HISTORY: Screening. Family history [...] scree Rosalesrdered By: Mehul Doyle on 05-23-2024 [facility] Work Phone: [facility] R[facility]EE DIGITAL SCREEN AYESHA Scott 05-23-2024 THIERNO [...] be mailed to the patient. Performing Facility: [facility] [address] [place], [place] [address] Interpreted by: Mehul Doyle Jr., MD Signed by: Mehul Doyle Jr., MD 05/23/24 Final result Normal [facility] DBT Breast - bilateral kenny manuel 05-22-2024 Radiology Study observation (narrative) [facility] Comp Metabolic Profon 2023 Albumin [Mass/Vol] 3.9 g/dL Normal 3.5-5.2 [facility] Comment on above: Performed By: #### C P #### [facility] [address] [place] [address] Cmv Driver: Naldo Tinsley MD #### LIPR, GLYHGB #### [facility] [employer] [address] [place] [address] Cmv Driver: Nelson Mckenzie MD Alkaline Phos 59 U/L Normal 35-104 [facility] Comment on above: Performed By: #### C P #### [facility] [address] [place] [address] Cmv Driver: Naldo Tinsley MD #### LIPMatt GLYHGB #### [facility] [address] [place] [address] Cmv Driver: Nelson Mckenzie MD ALT [Catalytic activity/Vol] 21 U/L Normal 5-33 [facility] Comment on above: Performed By: #### C P #### [facility] [address] [place] [address] Cmv Driver: Naldo Tinsley MD #### MIKE GLYHGB #### [address] [place] [address] Cmv Driver: Nelson Mckenzie MD Anion gap [Moles/Vol] 12 mmol/L Normal 9-17 [facility] Comment on above: Performed By: #### C P #### [facility] [address] [place] [address] Cmv Driver: Naldo Tinsley MD #### MIKE GLYHGB #### [facility] [address] [place] [address] Cmv Driver: Nelson Mckenzie MD AST [Catalytic activity/Vol] 23 U/L Normal <32 [facility] Comment on above: Performed By: #### C P #### [facility] [address] [place] [address] Cmv Driver: Naldo Tinsley MD #### LIPR, GLYHGB #### [facility] [address] [place] [address] Cmv Driver: Nelson Mckenzie MD Bilirubin [Mass/Vol] 0.6 mg/dL Normal 0.3-1.2 [facility] Comment on above: Performed By: #### C P #### [facility] [address] [place], [place] [phone] Cmv Driver: Naldo Tinsley MD #### LIPR, GLYHGB #### [address] [phone] Cmv Driver: Nelson Mckenzie MD BUN/CRE Ratio 30 High 9-20 [facility] Comment on above: Performed By: #### C P #### [facility] [address] [place], [place] 1756[address] Cmv Driver: Naldo Tinsley MD #### LIPR, GLYHGB #### [address] [phone] Cmv Driver: Nelson Mckenzie MD Calcium [Mass/Vol] 9.7 mg/dL Normal 8.6-10.4 [facility] Comment on above: Performed By: #### C P #### [facility] [address] [place] [address] Cmv Driver: Naldo Tinsley MD #### LIPR, GLYHGB #### [address] [address] Cmv Driver: Nelson Mckenzie MD Chloride [Moles/Vol] 98 mmol/L Normal 98-107 [facility] Comment on above: Performed By: #### C P #### [facility] [address] [place], [place] [address] Cmv Driver: Naldo Tinsley MD #### LIPR, GLYHGB #### [address] [address] Cmv Driver: Nelson Mckenzie MD CO2 [Moles/Vol] 25 mmol/L Normal 20-31 [facility] Comment on above: Performed By: #### C P #### [facility] [address] [place], [place] [phone] Cmv Driver: Naldo Tinsley MD #### LIPR, GLYHGB #### [facility] [employer] [address] [place] [address] Cmv Driver: Nelson Mckenzie MD Creatinine [Mass/Vol] 0.7 mg/dL Normal 0.5-0.9 [facility] Comment on above: Performed By: #### C P #### [facility] [address] [place], [place] [address] Cmv Driver: Naldo Tinsley MD #### LIPR, GLYHGB #### [address] [address] [employer] Driver: Nelson Mckenzie MD GFR/1.73 sq M.predicted among non-blacks MDRD (S/P/Bld) [Vol rate/Area] mL/min/{1.73_m2} Normal >60 [facility] Comment on above: Result Comment: These [...] secretion. Performed By: #### C P #### [facility] [address] [place], [place] [phone] Cmv Driver: Naldo Tinsley MD #### LIPMatt, GLYHGB #### [address] [address] Cmv Driver: Nelson Mckenzie MD Glucose [Mass/Vol] 138 mg/dL High 70-99 [facility] Comment on above: Performed By: #### C P #### [facility] [address] [place] [address] Cmv Driver: Naldo Tinsley MD #### LIPMatt, GLYHGB #### [address] [address] Cmv Driver: Nelson Mckenzie MD Potassium [Moles/Vol] 4.3 mmol/L Normal 3.7-5.3 [facility] Comment on above: Performed By: #### C P #### [facility] [address] [place], [place] [address] Cmv Driver: Naldo Tinsley MD #### LIPMatt GLYHGB #### [address] [phone] Cmv Driver: Nelson Mckenzie MD Protein [Mass/Vol] 7.1 g/dL Normal 6.4-8.3 [facility] Comment on above: Performed By: #### C P #### [facility] [address] [place], [place] [address] Cmv Driver: Naldo Tinsley MD #### MIKE GLYHGB #### [address] [place] [address] Cmv Driver: Nelson Mckenzie MD Sodium [Moles/Vol] 135 mmol/L Normal 135-144 [facility] Comment on above: Performed By: #### C P #### [facility] [address] [place], [place] [address] Cmv Driver: Naldo Tinsley MD #### MIKE GLYHGB #### [address] [address] Cmv Driver: Nelson Mckenzie MD Urea nitrogen [Mass/Vol] 21 mg/dL Normal 8-23 [facility] Comment on above: Performed By: #### C P #### [facility] [address] [place], [place] 8[address] Cmv Driver: Naldo Tinsley MD #### LIPR, GLYHGB #### [address] [phone] Cmv Driver: Nelson Mckenzie MD Hemoglobin A1Con 10-04-2023 Glucose [Mass/Vol] 243 mg/dL Normal [facility] Comment on above: Result Comment: The ADA and AACC recommend providing the estimated average glucose result to permit better patient understanding of their HBA1c result. Performed By: #### C P #### [facility] [address] [place], [place] [address] Cmv Driver: Naldo Tinsley MD #### LIPR GLYHGB #### [address] [phone] Cmv Driver: Nelson Mckenzie MD HbA1c (Bld) [Mass fraction] 10.1 % High 4.0-6.0 [facility] Comment on above: Performed By: #### C P #### [facility] [address] [place], [place] [address] Cmv Driver: Naldo Tinsley MD #### LIPMatt GLYHGB #### [facility] [address] [place], [place] [address]273[address] Cmv Driver: Nelson Mckenzie MD Lipid Profileon 10-04-2023 Cholesterol [Mass/Vol] 181 mg/dL Normal 0-199 [facility] Comment on above: Result Comment: Cholesterol Guidelines: <200 Desirable 200-240 Borderline >240 Undesirable Performed By: #### C P #### [facility] [address] [place], [place] [address]100[address] Cmv Driver: Naldo Tinsley MD #### LIPR, GLYHGB #### [facility] [address] [place], [place] [address]397[address] Cmv Driver: Nelson Mckenzie MD Cholesterol in HDL [Mass/Vol] 68 mg/dL Normal >40 [facility] Comment on above: Result Comment: HDL Guidelines: <40 Undesirable 40-59 Borderline >59 Desirable Performed By: #### C P #### [facility] [address] [place], [place] [address] Cmv Driver: Naldo Tinsley MD #### LIPR, GLYHGB #### [facility] [employer] [facility] [place] [address] Cmv Driver: Nelson Mckenzie MD Cholesterol in LDL [Mass/Vol] 82 mg/dL Normal 0-100 [facility] Comment on above: Result Comment: LDL Guidelines: <100 Desirable 100-129 Near to/above Desirable 130-159 Borderline >159 Undesirable Direct (measured) LDL and calculated LDL are not interchangeable tests. Performed By: #### C P #### [facility] [address] [place] [address] Cmv Driver: Naldo Tinsley MD #### LIPMatt, GLYHGB #### [address] [id number] Cmv Driver: Nelson Mckenzie MD Cholesterol in VLDL [Mass/Vol] 32 mg/dL Normal [facility] Comment on above: Performed By: #### C P #### [facility] [address] [place] [address] Cmv Driver: Naldo Tinsley MD #### LIPR, GLYHGB #### [address] [address] Cmv Driver: Nelson Mckenzie MD Cholesterol.total/Chol esterol in HDL [Mass ratio] 3.0 {ratio} Normal [facility] Comment on above: Performed By: #### C P #### [facility] [address] [place] [address] Cmv Driver: Naldo Tinsley MD #### LIPR, GLYHGB #### [address] [place] [address] Cmv Driver: Nelson Mckenzie MD Triglyceride [Mass/Vol] 159 mg/dL High <150 [facility] Comment on above: Result Comment: Triglyceride Guidelines: <150 Desirable 150-199 Borderline 200-499 High >499 Very high Based on AHA Guidelines for fasting triglyceride, February 2012. Performed By: #### C P #### [facility] [address] [place] [address] Cmv Driver: Naldo Tinsley MD #### LIPR, GLYHGB #### [address] [address] Cmv Driver: Nelson Mckenzie MD Microalb.,Random Uron 2023 Creatinine [Mass/Vol] 36.4 mg/dL Normal 28.0-217.0 [facility] Comment on above: Performed By: #### U RNMAB #### [address] [address] Cmv Driver: Nelson Mckenzie MD Microalb/Creat Ratio Can not be calculated Normal <25 [facility] Comment on above: Performed By: #### U RNMAB #### [address] [address] Cmv Driver: Nelson Mckenzie MD Microalbumin conc. <12 Normal <21 [facility] Comment on above: Performed By: #### U RNMAB #### [address] [address] Cmv Driver: Nelson Mckenzie MD [facility] Fish and Urine Cyt o ([facility])on 07-12-2023 UVFISH & UC Diagnosis Info Invalid Interpretation Code [facility] Comment on above: Result Comment: A:Ur ine,Urine:Voided [...] correlated with cytology and cystoscopy results.* CPT 43634, 83241. 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 Electronically signed by : on: 07/12/2023 12:28:58 Performed By: #### 1 [id number] #### [facility] [address] [place] [address] Consent for Procedure/Surger yon 07-05-2023 Consent for Procedure/Surgery [id number] Normal [facility] Consent for Treatmenton Consent for Treatment [id number] Normal [facility] Inpatient Patient Summaryon 07-05-2023 Inpatient Patient Summary [address] [address] Clinical Summary Person Information Name: KATHRYN GIORDANO Age: 68 Years : 1955 Sex: Female PCP: SUZANNE DOUGLAS MD Marital Status: Race: White Ethnicity: Non- or Language: Polish Visit Id: Visit Reason: BLADDER CANCER Speciality: Acuity: Enc Type: Outpatient Med Service: Surgery Arrival: 07/05/2023 15:17:52 Discharge: Dispo Type: Address: [address] [place] [address] [place] [id number] Provider Notes: Diagnosis: Problems Active History of [...] up: With: Address: When: Freddy KRAUS [address] [facility], [address], [place] [address] [facility] (1) Comments: As we discussed, your bladder looks good. Evidence of prior scars. The plan will be for a repeat scope in about 1 year provided the FISH test is negative. Please finish your antibiotic. Have a great day. Patient Education Information: EU - Cystoscopy Discharge Instructions (Custom) [facility] IntraOperative Documentson 0 07-05-2023 IntraOperative Documents [id number] [facility] Main OR Intraoperative Recor don 07-05-2023 Main OR Intraoperative Record IntraOp Document Type FTURO Summary Primary Physician: Freddy KRAUS MD Finalized Date/Time: 07/05/23 16:15:35 Pt. Name: KATHRYN GIORDANO Julieth Harrell/Sex: 1955 Female Med Rec #: [id number] Physician: Freddy KRAUS MD Financial #: [id number] Pt. 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 Condition Intact, [place], Warm, and Dry Additional FISH Specimens Collected [...] 16:15 Eliza Jose E 07/05/23 16:15 Normal [facility] Main OR Preoperative Recordo n 07-05-2023 Main OR Preoperative Record Holding Area Document Type FTURO Summary Primary Physician: Freddy KRAUS MD Finalized Date/Time: 07/05/23 15:53:59 Pt. Name: KATHRYN GIORDANO /Sex: 1955 Female Med Rec #: [id number] Physician: Freddy KRAUS MD Financial #: [id number] Pt. Type: O Room/Bed: / Admit/Disch: 07/05/23 [...] De Leon RN, Ruthann 07/05/23 15:53 Normal [facility] Operative Reporton Operative Report Patient: KATHRYN GIORDANO Age: 68 years Sex: Female : 1955 Associated Diagnoses: None Author: Freddy KRAUS MD Procedure Operative Information Details: Date/ Time: 07/05/2023 16:15:00. 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 Post-Op Dx: Same. Anesthesia [...] FISH test and cytology are negative.. Normal [facility] Comment on above: Result Comment: Elec tronically Signed By: Freddy KRAUS MD\.br\Date and Time Signed: 07/05/23 16:16 EST Outpatient Surgery Discharge Instructionon 07-05-2023 Outpatient Surgery Discharge Instruction [address] [address] Patient Discharge Instructions PERSON INFORMATION [...] With: Address: When: Freddy ROSA, [address], [facility] [address] [phone] Business (1) Comments: As we discussed, your [...] to serve you. Thank you for choosing [facility] Normal [facility] Fish and Urine Cyt o ([facility])on 07-05-2023 [facility] Method of Extraction Voided Normal [facility] Comment on above: Performed By: #### 1 [id number] #### [facility] [address] [place] [address] [facility] Number of Jars 1 Invalid Interpretation Code [facility] Comment on above: Performed By: #### 1 [id number] #### [facility] [address] [place] [address] [facility] Specimen Urine Normal [facility] Comment on above: Performed By: #### 1 [id number] #### [facility] [address] [place] [address] [facility] Type of Service Technical Only Normal [facility] Comment on above: Performed By: #### 1 [id number] #### [facility] [address] [place] [address] AMYLASEon 07-08-2022 Amylase [Catalytic activity/Vol] 32 U/L Normal 25-115 [facility] Comment on above: Performed By: #### A MY, CMP, LIPA #### [facility] [address] [place] [address] Dr. Navi Day CBC AUTO DIFFon 07-08-2022 BASO # 0.0 103/ul Normal 0.0-0.1 [facility] Comment on above: Performed By: #### C BC #### [facility] [address] [place] [address] Dr. Navi Day Basophils/100 WBC (Bld) 0.3 % Normal 0.2-2.0 [facility] Comment on above: Performed By: #### C BC #### [facility] [address] [place] [address] Dr. Navi Day EO # 0.0 103/ul Normal 0.0-0.7 [facility] Comment on above: Performed By: #### C BC #### [facility] [address] [place] [address] Dr. Navi Day Eosinophils/100 WBC (Bld) 0.6 % Critically low 0.9-7.0 [facility] Comment on above: Performed By: #### C BC #### [facility] [address] [place] [address] Dr. Navi Day Erythrocyte distribution width (RBC) [Ratio] 12.7 % Normal 11.0-15.0 [facility] Comment on above: Performed By: #### C BC #### [facility] [address] [place] [address] Dr. Navi Day Hematocrit (Bld) [Volume fraction] 42.2 % Normal 36.0-48.0 [facility] Comment on above: Performed By: #### C BC #### [facility] [address] [place] [address] Dr. Navi Day Hemoglobin (Bld) [Mass/Vol] 14.2 g/dL Normal 12.0-16.0 [facility] Comment on above: Performed By: #### C BC #### [facility] [address] [place] [address] Dr. Navi Day IG # 0.03 10e3/ul Normal 0.00-0.03 [facility] Comment on above: Performed By: #### C BC #### [facility] [address] [place] [address] Dr. Navi Day IG % 0.5 % Normal 0.0-0.5 [facility] Comment on above: Performed By: #### C BC #### [facility] [address] [place] [address] Dr. Navi Day LYMPH # 0.8 103/ul Critically low 1.2-3.8 [facility] Comment on above: Performed By: #### C BC #### [facility] [address] [place] [address] Dr. Navi Day Lymphocytes/100 WBC (Bld) 12.6 % Critically low 20.5-60.0 [facility] Comment on above: Performed By: #### C BC #### [facility] [address] [place] [address] Dr. Navi Day MANUAL DIFF REQ NO Normal [facility] Comment on above: Performed By: #### C BC #### [facility] [address] [place] [address] Dr. Navi Day MCH (RBC) [Entitic mass] 27.8 pg Normal 26.7-34.0 [facility] Comment on above: Performed By: #### C BC #### [facility] [address] [place] [address] Dr. Navi Day MCHC (RBC) [Mass/Vol] 33.6 g/dL Normal 29.9-35.2 [facility] Comment on above: Performed By: #### C BC #### [facility] [address] [place] [address] Dr. Navi Day MCV (RBC) [Entitic vol] 82.6 fL Normal 81.0-99.0 [facility] Comment on above: Performed By: #### C BC #### [facility] [address] [place] [address] Dr. Navi Day MONO # 0.5 103/ul Normal 0.3-0.8 [facility] Comment on above: Performed By: #### C BC #### [facility] [address] [place] [address] Dr. Navi Day Monocytes/100 WBC (Bld) 7.6 % Normal 1.7-12.0 [facility] Comment on above: Performed By: #### C BC #### [facility] [address] [place] [address] Dr. Navi Day NEUT # 5.0 103/ul Normal 1.4-6.5 [facility] Comment on above: Performed By: #### C BC #### [facility] [address] [place] [address] Dr. Navi Day Neutrophils/100 WBC (Bld) 78.4 % Critically high 43.0-75.0 [facility] Comment on above: Performed By: #### C BC #### [facility] [address] [place] [address] Dr. Navi Day Platelet mean volume (Bld) [Entitic vol] 10.2 fL Normal 9.5-13.5 [facility] Comment on above: Performed By: #### C BC #### [facility] [address] [place] [address] Dr. Navi Day PLT 243 103/ul Normal 150-450 [facility] Comment on above: Performed By: #### C BC #### [facility] [address] [place] [address] Dr. Navi Day RBC 5.11 106/ul Normal 4.20-5.40 [facility] Comment on above: Performed By: #### C BC #### [facility] [address] [place] [address] Dr. Navi Day WBC 6.4 103/ul Normal 4.0-11.0 [facility] Comment on above: Performed By: #### C BC #### [facility] [address] [place] [address] ABD/PELV W CONon [...] CAMERON Date: 2022-07-08 21:04 Normal The [facility] ER URINE PROFILEon 3 Bilirubin Ql (U) Negative Normal NEGATIVE The [facility] Comment on above: Performed By: #### E RUR #### [facility] [address] [place] [address] Dr. Navi Day Clarity (U) CLEAR Normal CLEAR [facility] Comment on above: Performed By: #### E RUR #### [facility] [address] [place] [address] Dr. Navi Day Color (U) YELLOW Normal YELLOW The [facility] Comment on above: Performed By: #### E RUR #### [facility] [address] [place] [address] Dr. Navi PATRICIO A micrscopic examination will be performed if indicated. Normal The [facility] Comment on above: Performed By: #### E RUR #### [facility] [address] [place] [address] Dr. Navi Day Glucose Ql (U) Negative Normal NEGATIVE [facility] Comment on above: Performed By: #### E RUR #### [facility] [address] [place] [address] Dr. Navi Day Hemoglobin Ql (U) Negative Normal NEGATIVE The [facility] Comment on above: Performed By: #### E RUR #### [facility] [address] [place] [address] Dr. Navi Day Ketones Ql (U) 15 mg/dl Abnormal NEGATIVE [facility] Comment on above: Performed By: #### E RUR #### [facility] [address] [place] [address] Dr. Navi Day LEUKOCYTES TRACE Abnormal NEGATIVE [facility] Comment on above: Performed By: #### E RUR #### [facility] [address] [place] [address] Dr. Navi Day Nitrite Ql (U) Negative Normal NEGATIVE [facility] Comment on above: Performed By: #### E RUR #### [facility] [address] [place] [address] Dr. Navi Day pH (U) 6.0 [pH] Normal 5-9 [facility] Comment on above: Performed By: #### E RUR #### [facility] [address] [place] [address] Dr. Navi Day SPEC GRAVITY 1.010 Normal 1.005-<=1.[address] [facility] Comment on above: Performed By: #### E RUR #### [facility] [address] [place] [address] Dr. Navi Day UA PROTEIN Negative Normal NEGATIVE/ TRACE The [facility] Comment on above: Performed By: #### E RUR #### [facility] [address] [place] [address] Dr. Navi Day UR MICRO IND NOT INDICATED Normal [facility] Comment on above: Performed By: #### E RUR #### [facility] [address] [place] [address] Dr. Navi Day Urobilinogen Qn (U) 0.2 {Claire'U}/dL Normal 0.2 - 1. 0 [facility] Comment on above: Performed By: #### E RUR #### [facility] [address] [place] [address] Dr. Navi Day LIPASEon 07-08-2022 Lipase [Catalytic activity/Vol] 105.0 U/L Normal 73.0-393.0 [facility] Comment on above: Performed By: #### A MY, CMP, LIPA #### [facility] [address] [address] [address] Navi Day PROF 14(COMP METB)on 023 Albumin [Mass/Vol] 3.1 g/dL Critically low 3.4-5.0 [facility] Comment on above: Performed By: #### A MY, CMP, LIPA #### [facility] [address] [address] [address] Navi Day Albumin/Globulin [Mass ratio] 0.8 {ratio} Normal [facility] Comment on above: Performed By: #### A MY, CMP, LIPA #### [facility] [address] [place] [address] Dr. Navi Day ALP [Catalytic activity/Vol] 58 U/L Normal 46-116 [facility] Comment on above: Performed By: #### A MY, CMP, LIPA #### [facility] [address] [address] [address] Navi Day ALT [Catalytic activity/Vol] 22 U/L Normal 14-59 [facility] Comment on above: Performed By: #### A MY, CMP, LIPA #### [facility] [address] [place] [address] Dr. Navi Day Anion gap [Moles/Vol] 12.5 mmol/L Normal [facility] Comment on above: Performed By: #### A MY, CMP, LIPA #### [facility] [address] [place] [address] Dr. Navi Day AST [Catalytic activity/Vol] 23 U/L Normal 15-37 [facility] Comment on above: Performed By: #### A MY, CMP, LIPA #### [facility] [address] [place] [address] Dr. Navi Day Bilirubin [Mass/Vol] 0.5 mg/dL Normal 0.2-1.0 [facility] Comment on above: Performed By: #### A MY, CMP, LIPA #### [facility] [address] [address] [address] Navi Day Calcium [Mass/Vol] 9.0 mg/dL Normal 8.5-10.1 [facility] Comment on above: Performed By: #### A MY, CMP, LIPA #### [facility] [address] [address] [address] Navi Day Chloride [Moles/Vol] 100 mmol/L Normal 98-107 The [facility] Comment on above: Performed By: #### A MY, CMP, LIPA #### [facility] [address] [address] [address] Navi Day CO2 [Moles/Vol] 27.0 mmol/L Normal 21.0-32.0 [facility] Comment on above: Performed By: #### A MY, CMP, LIPA #### [facility] [address] [place] [address] Dr. Navi Day Creatinine [Mass/Vol] 0.79 mg/dL Normal 0.55-1.02 [facility] Comment on above: Performed By: #### A MY, CMP, LIPA #### [facility] [address] [place] [address] Dr. Navi Day EGFR-AF CZECH >60 Normal >=60 [facility] Comment on above: Performed By: #### A MY, CMP, LIPA #### [facility] [address] [place] [address] Dr. Navi Day EGFR-NON AF CZECH >60 Normal >=60 [facility] Comment on above: Performed By: #### A MY, CMP, LIPA #### [facility] [address] [place] [address] Dr. Navi Day Globulin (S) [Mass/Vol] 3.8 g/dL Normal [facility] Comment on above: Performed By: #### A MY, CMP, LIPA #### [facility] [address] [place] [address] Dr. Navi Day Glucose [Mass/Vol] 168 mg/dL Critically high 74-106 [facility] Comment on above: Performed By: #### A MY, CMP, LIPA #### [facility] [address] [address] [address] Navi Day Potassium [Moles/Vol] 3.5 mmol/L Normal 3.5-5.1 [facility] Comment on above: Performed By: #### A MY, CMP, LIPA #### [facility] [address] [place] [address] Dr. Navi Day Protein [Mass/Vol] 6.9 g/dL Normal 6.4-8.2 [facility] Comment on above: Performed By: #### A MY, CMP, LIPA #### [facility] [address] [address] [address] Navi Day Sodium [Moles/Vol] 136 mmol/L Normal 136-145 [facility] Comment on above: Performed By: #### A MY, CMP, LIPA #### [facility] [address] [place] [address] Dr. Navi Day Urea nitrogen [Mass/Vol] 19.0 mg/dL Critically high 7.0-18.0 [facility] Comment on above: Performed By: #### A MY, CMP, LIPA #### [facility] [address] [place] [address] Dr. Navi Day Urea nitrogen/Creatinine [Mass ratio] 24.1 mg/mg Normal [facility] Comment on above: Performed By: #### A MY, CMP, LIPA #### [facility] [address] [place] [address] Dr. Navi Day [facility] DIGITAL SCREEN [facility] 05-19-2022 BI-RADS 1 - Negative, no evidence of malignancy. Normal interval followup in 12 months. OVERALL ASSESSMENT- NEGATIVE A letter of notification will be sent to the patient regarding the results. [facility] RIS CONSOLIDATED HISTORY: Screening. Family history [...] RIS CONSOLIDATED Radiology Study observation (narrative) [employer] Phone: [employer] DIGITAL SCREEN BILA TERALOrdered By: Mehul Doyle on 05-19-2022 [employer] Phone: COVID/FLU/RSV RT-PCRon 05-05 SARS-CoV-2 (COVID-19) RNA JULIA+probe Ql (Unsp spec) Positive [facility] Other COVID/FLU/RSV RT-PCR Negative [employer] Other COVID Quick Testingon 2021 Result Negative [facility] Other Quick Fluon 09-28-2021 FLUAV Ab CF (S) [Titer] Negative [facility] Other FLUBV Ab CF (S) [Titer] Negative [facility] Other XR chest 2V*on 09-28-2021 XR chest 2V* [facility] Other XR chest 2V* [facility] [employer] Other XR chest 2V* [address] [place] [address] [employer] Other XR chest 2V* [place] [address] [facility] [employer] Other XR chest 2V* XRay Report [facility] Other XR chest 2V* Signed [facility] Other XR chest 2V* Patient: Kathryn Giordano MR#: [id number] [facility] Other XR chest 2V* [id number] [employer] Other XR chest 2V* : 1955 Acct:[id number] [facility] Other XR chest 2V* Age/Sex: 66 / F ADM Date: 09/28/21 [facility] Other XR chest 2V* Loc: XDUCLY Room: [facility] Other XR chest 2V* Attending Dr: Anais Farley APRN [facility] Other XR chest 2V* Ordering Provider: Anais Farley APRN [facility] Other XR chest 2V* Date of Service: 09/28/21 [facility] Other XR chest 2V* XR/XR chest 2V*: COUGH [facility] Other XR chest 2V* Copies to: Anais Farley APRN [facility] Other XR chest 2V* Plain film chest2 view [facility] Other XR chest 2V* HISTORY:Productive cough. [facility] Other XR chest 2V* COMPARISON:None [facility] [place] Other XR chest 2V* FINDINGS: The cardiac, mediastinal and hilar silhouettes are within normal limits. No acute lung [facility] Other XR chest 2V* process, pleural effusion or pneumothorax identified. Bony structures are intact. [facility] Other XR chest 2V* XR/XR chest 2V* [facility] Other XR chest 2V* IMPRESSION: No acute process. [facility] Other XR chest 2V* Impression dictated by: Sae Stafford M.D.09/28/2021 11:55 AM [facility] Other XR chest 2V* Dictation Location: [place] [address] [facility] Other XR chest 2V* Transcribed By: LEE 09/28/21 [facility] [place] [employer] Other XR chest 2V* Dictated By: Sae Stafford DO 09/28/21 [facility] [employer] Other XR chest 2V* Signed By: NO[facility]OT Other XR chest 2V* 09/28/[address] [place] [address] [employer] Other XR chest 2V* [facility] [place] [address] [place] [address] XRay Report Signed Patient: Kathryn Giordano MR#: [id number] : 1955 Acct:[id number] Age/Sex: 66 / F ADM Date: 09/28/21 Loc: XDUC Room: Type: [facility] Attending Dr: Anais Farley APRN Ordering Provider: [...] Sae Stafford M.D.09/28/2021 11:55 AM Dictation Location: [place] [address] Transcribed By: LEE 09/28/21 1155 Dictated By: Sae Stafford DO 09/28/21 1155 Signed By: 09/28/21 1155 Normal [facility] LIPID PROFILEon 09-27-2021 CHOL-HDL RATIO NORM SEE BELOW Normal [facility] Comment on above: Result Comment: 3.3 - 4.4 LOW RISK 4.4 - 7.1 AVERAGE RISK 7.1 - 11.0 MODERATE RISK >11.0 HIGH RISK Performed By: #### L IPID, CMP #### [facility] [address] [address] [address] Navi Day Cholesterol [Mass/Vol] 203 mg/dL Critically high <=200 [facility] Comment on above: Performed By: #### L IPID, CMP #### [facility] [address] [address] [address] Navi Day Cholesterol in HDL [Mass/Vol] 72 mg/dL Critically high 40-60 [facility] Comment on above: Performed By: #### L IPID, CMP #### [facility] [address] [address] [address] Navi Day Cholesterol in LDL [Mass/Vol] 109.6 mg/dL Normal [facility] Comment on above: Performed By: #### L IPID, CMP #### [facility] [address] [place] [address] Dr. Navi Day Cholesterol.total/Chol esterol in HDL [Mass ratio] 2.8 {ratio} Normal [facility] Comment on above: Performed By: #### L IPID, CMP #### [facility] [address] [address] [address] Navi Day HDL NORMAL > or = 60 mg/dl - LOW CARDIOVASCULAR RISK <40 mg/dl - HIGH CARDIOVASCULAR RISK Normal [facility] Comment on above: Performed By: #### L IPID, CMP #### [facility] [address] [address] [address] Navi Day LDL CALC NORMAL SEE BELOW Normal [facility] Comment on above: Result Comment: <100 mg/dl OPTIMAL 100 - 129 mg/dl NEAR OR ABOVE OPTIMAL 130 - 159 mg/dl BORDERLINE HIGH 160 - 189 mg/dl HIGH >190 mg/dl VERY HIGH Performed By: #### L IPID, CMP #### [facility] [address] [address] [address] Navi Day Triglyceride [Mass/Vol] 107 mg/dL Normal <=150 [facility] Comment on above: Performed By: #### L IPID, CMP #### [facility] [address] [address] [address] Navi Day VLDL CALC 21.4 mg/dL Normal [facility] Comment on above: Performed By: #### L IPID, CMP #### [facility] [address] [address] [address] Navi Day PROF 14(COMP METB)on 022 Albumin [Mass/Vol] 3.6 g/dL Normal 3.4-5.0 [facility] Comment on above: Performed By: #### L IPID, CMP #### [facility] [address] [address] [address] Navi Day Albumin/Globulin [Mass ratio] 0.8 {ratio} Normal [facility] Comment on above: Performed By: #### L IPID, CMP #### [facility] [address] [place] [address] Dr. Navi Day ALP [Catalytic activity/Vol] 52 U/L Normal 46-116 [facility] Comment on above: Performed By: #### L IPID, CMP #### [facility] [address] [place] [address] Dr. Navi Day ALT [Catalytic activity/Vol] 34 U/L Normal 14-59 [facility] Comment on above: Performed By: #### L IPID, CMP #### [facility] [address] [place] [address] Dr. Navi Day Anion gap [Moles/Vol] 15.7 mmol/L Normal [facility] Comment on above: Performed By: #### L IPID, CMP #### [facility] [address] [address] [address] Navi Day AST [Catalytic activity/Vol] 19 U/L Normal 15-37 [facility] Comment on above: Performed By: #### L IPID, CMP #### [facility] [address] [address] [address] Navi Day Bilirubin [Mass/Vol] 0.4 mg/dL Normal 0.2-1.0 [facility] Comment on above: Performed By: #### L IPID, CMP #### [facility] [address] [place] [address] Dr. Navi Day Calcium [Mass/Vol] 9.3 mg/dL Normal 8.5-10.1 [facility] Comment on above: Performed By: #### L IPID, CMP #### [facility] [address] [place] [address] Dr. Navi Day Chloride [Moles/Vol] 100 mmol/L Normal 98-107 [facility] Comment on above: Performed By: #### L IPID, CMP #### [facility] [address] [place] [address] Dr. Navi Day CO2 [Moles/Vol] 28.4 mmol/L Normal 21.0-32.0 [facility] Comment on above: Performed By: #### L IPID, CMP #### [facility] [address] [place] [address] Dr. Navi Day Creatinine [Mass/Vol] 0.84 mg/dL Normal 0.55-1.02 [facility] Comment on above: Performed By: #### L IPID, CMP #### [facility] [address] [place] [address] Dr. Navi Day EGFR-AF CZECH >60 Normal >=60 [facility] Comment on above: Performed By: #### L IPID, CMP #### [facility] [address] [place] [address] Dr. Navi Day EGFR-NON AF CZECH >60 Normal >=60 [facility] Comment on above: Performed By: #### L IPID, CMP #### [facility] [address] [place] [address] Dr. Navi Day Globulin (S) [Mass/Vol] 4.1 g/dL Normal [facility] Comment on above: Performed By: #### L IPID, CMP #### [facility] [address] [place] [address] Dr. Navi Day Glucose [Mass/Vol] 198 mg/dL Critically high 74-106 [facility] Comment on above: Performed By: #### L IPID, CMP #### [facility] [address] [place] [address] Dr. Navi Day Potassium [Moles/Vol] 4.1 mmol/L Normal 3.5-5.1 [facility] Comment on above: Performed By: #### L IPID, CMP #### [facility] [address] [place] [address] Dr. Navi Day Protein [Mass/Vol] 7.7 g/dL Normal 6.1-8.2 [facility] Comment on above: Performed By: #### L IPID, CMP #### [facility] [address] [place] [address] Dr. Navi Day Sodium [Moles/Vol] 140 mmol/L Normal 136-145 [facility] Comment on above: Performed By: #### L IPID, CMP #### [facility] [address] [place] [address] Dr. Navi Day Urea nitrogen [Mass/Vol] 19.0 mg/dL Critically high 7.0-18.0 [facility] Comment on above: Performed By: #### L IPID, CMP #### [facility] [address] [place] [address] Dr. Navi Day Urea nitrogen/Creatinine [Mass ratio] 22.6 mg/mg Normal [facility] Comment on above: Performed By: #### L IPID, CMP #### [facility] [address] [place] [address] Dr. Navi Day COVID Quick Testingon 2021 Result Negative [employer] [facility] [employer] Other Quick Fluon 09-06-2021 FLUAV Ab CF (S) [Titer] Negative [employer] [facility] [employer] Other FLUBV Ab CF (S) [Titer] Negative [employer] [facility] [employer] Other [facility] RENEE DIGITAL SCREEN BILA TERALon 04-04-2020 BI-RADS 1 - Negative, no evidence of malignancy. Normal interval followup in 12 months. OVERALL ASSESSMENT- NEGATIVE A letter of notification will be sent to the patient regarding the results. [facility], [place] HISTORY: Screening. Family history breast carcinoma. Prior [...] skin lesions and linear markers represent scars.) [place], [place] Alan, Mhpn Incoming Radiant Results From [employer] - 04/04/2020 10:31 AM EST HISTORY: Screening. [...] sent to the patient regarding the results. [place] Albuminon 11-02-2019 Albumin [Mass/Vol] 4.5 g/dL 3.5 - 5.2 g/dL [place] Calciumon 11-02-2019 Calcium [Mass/Vol] 10.2 mg/dL 8.6 - 10. 4 mg/dL [place] Comprehensive Metabolic Pane bettie 10-10-2019 Albumin [Mass/Vol] 4.5 g/dL 3.5 - 5.2 g/dL [place] Albumin/Globulin [Mass ratio] NOT REPORTED [place] ALP [Catalytic activity/Vol] 67 U/L 35 - 104 U/L [place] ALT [Catalytic activity/Vol] 23 U/L 5 - 33 U/L [place] Anion gap [Moles/Vol] 7 mmol/L Low 9 - 17 mmol/L [place] AST [Catalytic activity/Vol] 25 U/L <32 [place] Bilirubin Ql (U) 0.49 mg/dL 0.3 - 1.2 mg/dL [place] Bun/Cre Ratio 16 [place] Calcium [Mass/Vol] 11.2 mg/dL High 8.6 - 10. 4 mg/dL [place] Chloride [Moles/Vol] 97 mmol/L Low 98 - 10 7 mmol/L [place] CO2 [Moles/Vol] 30 mmol/L 20 - 31 mmol/L [place] Creatinine [Mass/Vol] 0.74 mg/dL 0.5 - 0.9 mg/dL [place] GFR >60 >60 mL/min [place] GFR Non- >60 >60 mL/min [place] GFR/1.73 sq M predicted among non-blacks MDRD (S/P/Bld) [Vol rate/Area] NOT REPORTED [place] GFR/1.73 sq M predicted among non-blacks MDRD (S/P/Bld) [Vol rate/Area] [place] Comment on above: Average GFR for 60-6 9 years old: 85 mL/min/1.73sq m Chronic Kidney Disease: <60 mL/min/1.73sq m Kidney failure: <15 mL/min/1.73sq m eGFR calculated using average adult body mass. Additional eGFR calculator available at: http://www.[employer]/multiple_crcl_2012.htm Glucose [Mass/Vol] 196 mg/dL High 70 - 99 mg/dL [place] Interpretation and review of laboratory results Abnormal [place] Potassium [Moles/Vol] 4.1 mmol/L 3.7 - 5.3 mmol/L [place] Protein [Mass/Vol] 8.0 g/dL 6.4 - 8.3 g/dL [place] Sodium [Moles/Vol] 134 mmol/L Low 135 - 144 mmol/L [place] Urea nitrogen [Mass/Vol] 12 mg/dL 8 - 23 mg/dL [place] Lipid Panelon 10-10-2019 Cholesterol [Mass/Vol] 192 mg/dL <200 [place] Comment on above: Cholesterol Guidelines: <200 Desirable 200-240 Borderline >240 Undesirable Cholesterol in HDL [Mass/Vol] 67 mg/dL >40 [place] Comment on above: HDL Guidelines: <40 Undesirable 40-59 Borderline >59 Desirable Cholesterol in LDL [Mass/Vol] 101 mg/dL 0 - 130 mg/dL [place] Comment on above: LDL Guidelines: <100 Desirable 100-129 Near to/above Desirable 130-159 Borderline >159 Undesirable Direct (measured) LDL and calculated LDL are not interchangeable tests. Cholesterol in VLDL [Mass/Vol] NOT REPORTED 1 - 30 mg/dL [place] Cholesterol.total/Chol esterol in HDL [Mass ratio] 2.9 {ratio} <5 [place] Triglyceride [Mass/Vol] 122 mg/dL <150 [place] Comment on above: Triglyceride Guidelines: <150 Desirable 150-199 Borderline 200-499 High >499 Very high Based on AHA Guidelines for fasting triglyceride, February 2012. Patient Fasting?on 0 Patient Fasting? yes [place], [place] CBC Auto Differentialon 02-28 Basophils (Bld) [#/Vol] 0.00 10*3/uL [place] Basophils/100 WBC (Bld) 0 % 0 - 2 % [place] Differential Type YES [facility] Sush[place] Eosinophils (Bld) [#/Vol] 0.30 10*3/uL [place] Eosinophils/100 WBC (Bld) 3 % 0 - 5 % [place] Erythrocyte distribution width (RBC) [Ratio] 13.7 % 12.1 - 15.2 % [place] Hematocrit (Bld) [Volume fraction] 40.1 % 36 - 46 % [place] Hemoglobin (Bld) [Mass/Vol] 13.3 g/dL 12 - 16 g/dL [place] Lymphocytes (Bld) [#/Vol] 2.00 10*3/uL [place] Lymphocytes/100 WBC (Bld) 22 % 15 - 40 % [place] MCH (RBC) [Entitic mass] 27.9 pg 26 - 34 pg [place] MCHC (RBC) [Mass/Vol] 33.2 g/dL 31 - 37 g/dL M [place] MCV (RBC) [Entitic vol] 83.9 fL 80 - 100 fL [place] Monocytes (Bld) [#/Vol] 0.70 10*3/uL [place] Monocytes/100 WBC (Bld) 8 % 4 - 8 % [place] Platelet mean volume (Bld) [Entitic vol] NOT REPORTED 6 - 12 fL [place] Platelets (Bld) [#/Vol] NOT REPORTED [place] Platelets (Bld) [#/Vol] 255 10*3/uL [place] RBC (Bld) [#/Vol] 4.78 10*6/uL 4 - 5.2 m/uL [place] RBC morphology finding Nom (Bld) NOT REPORTED [place] Segmented neutrophils/100 WBC (Bld) 67 % 47 - 75 % [place] Segs Absolute 6.00 [place] WBC (Bld) [#/Vol] NOT REPORTED per 100 WBC [place] WBC (Bld) [#/Vol] 9.0 10*3/uL [place] WBC Morphology NOT REPORTED [place] Otheron 03-14-2019 Immature granulocytes (Bld) [#/Vol] NOT REPORTED [place] THIERNO DIGITAL SCREEN W OR WO C AD BILATERALon 02-16-2019 Benign bilateral mammography. BI-RADS 2 - Benign, no evidence of malignancy. Normal interval followup is recommended in 12 months. OVERALL ASSESSMENT- BENIGN A letter of notification will be sent to the patient regarding the results. [place] EXAM: THIERNO DIGITAL SCREEN W OR WO CAD BILATERAL HISTORY: Reason for exam:->screening. COMPARISON: 01/05/2018, 10/14/2016, 10/09/2015. TECHNIQUE: 2D views FINDINGS: Breasts are of scattered fibroglandular composition. Minimal postsurgical scarring is seen in the upper-outer left breast, and this is stable. No developing masses, microcalcifications , or enlarged lymph nodes. [facility] [place] Alan, Mhpn Incoming Radiant Results From [employer] - 02/16/2019 10:14 AM EDT EXAM: THIERNO [...] sent to the patient regarding the results. Rumgr[facility]ELSEY Vital Signs Date Time Vital Sign Value Performing Clinician Facility 06-22-2024 10:24-0500 Diastolic blood pressure 56 mm[Hg] Kraig [facility]ford DO [facility] 06-22-2024 10:24-0500 Heart rate 89 /min Kraig Alford [place] Work [facility] 06-22-2024 10:24-0500 Systolic blood pressure 131 mm[Hg] Kraig PresleyStarMaker Interactivechance [place] Work Phone: [facility] 06-08-2024 10:32-0500 Body height 165.1 cm [facility] 06-08-2024 10:32-0500 Body mass index (BMI) [Ratio] 38.4 kg/m2 [facility] 06-08-2024 10:32-0500 Body temperature 98.1 [degF] [facility] 06-08-2024 10:32-0500 Body weight 104.77 kg [facility] 06-08-2024 10:32-0500 Diastolic blood pressure 78 mm[Hg] [facility] 06-08-2024 10:32-0500 Heart rate 81 /min [facility] 06-08-2024 10:32-0500 Respiratory rate 20 /min [facility] 06-08-2024 10:32-0500 SaO2% (BldA) [Mass fraction] 97 % [facility] 06-08-2024 10:32-0500 Systolic blood pressure 140 mm[Hg] [facility] 06-02-2024 09:00-0500 Diastolic blood pressure 65 mm[Hg] Carlos Aguayo MD Work Phone: [facility] [employer] 06-02-2024 09:00-0500 Heart rate 68 /min Carlos Aguayo MD Work Phone: [facility] [employer] 06-02-2024 09:00-0500 Respiratory rate 21 /min Carlos Aguayo MD Work Phone: [facility] [employer] 06-02-2024 09:00-0500 Systolic blood pressure 146 mm[Hg] Carlos Aguayo MD Work Phone: [facility] [employer] 06-02-2024 08:00-0500 SaO2% (BldA) [Mass fraction] 90 % Carlos Aguayo MD Work Phone: [facility] [employer] 06-02-2024 07:38-0500 Body temperature 97.59 [degF] Carlos Aguayo MD Work Phone: [facility] [employer] 06-02-2024 06:39-0500 Body height 162.6 cm Carlos Aguayo MD Work Phone: [facility] [employer] 06-02-2024 06:39-0500 Body mass index (BMI) [Ratio] 39.99 kg/m2 Carlos Aguayo MD Work Phone: [facility] [employer] 06-02-2024 06:39-0500 Body weight 105.69 kg Carlos Aguayo MD Work Phone: [facility] [employer] 04-11-2024 10:20-0500 Body height 165.1 cm Neftaly Mcmanus DO Work Phone: [facility] 04-11-2024 10:20-0500 Body mass index (BMI) [Ratio] 39.94 kg/m2 Neftaly Mcmanus DO Work Phone: [facility] 04-11-2024 10:20-0500 Body weight 108.86 kg Neftaly Mcmanus DO Work Phone: [facility] 03-20-2024 15:26-0400 Body height 165.1 cm Neftaly Mcmanus DO Work Phone: [facility] 03-20-2024 15:26-0400 Body mass index (BMI) [Ratio] 39.94 kg/m2 Neftaly Mcmanus DO Work Phone: [facility] 03-20-2024 15:26-0400 Body weight 108.86 kg Neftaly Mcmanus DO Work Phone: [facility] 03-09-2024 10:58-0400 Body height 165.1 cm [facility] 03-09-2024 10:58-0400 Body mass index (BMI) [Ratio] 38.2 kg/m2 [facility] 03-09-2024 10:58-0400 Body temperature 98.1 [degF] [facility] 03-09-2024 10:58-0400 Body weight 104.32 kg [facility] 03-09-2024 10:58-0400 Diastolic blood pressure 85 mm[Hg] [facility] 03-09-2024 10:58-0400 Heart rate 92 /min [facility] 03-09-2024 10:58-0400 Respiratory rate 18 /min [facility] 03-09-2024 10:58-0400 SaO2% (BldA) [Mass fraction] 96 % [facility] 03-09-2024 10:58-0400 Systolic blood pressure 161 mm[Hg] [facility] 12-09-2023 11:01-0400 Body height 165.1 cm [facility] 12-09-2023 11:01-0400 Body mass index (BMI) [Ratio] 38.6 kg/m2 [facility] 12-09-2023 11:01-0400 Body temperature 98.2 [degF] [facility] 12-09-2023 11:01-0400 Body weight 105.23 kg [facility] 12-09-2023 11:01-0400 Diastolic blood pressure 70 mm[Hg] [facility] 12-09-2023 11:01-0400 Heart rate 71 /min [facility] 12-09-2023 11:01-0400 Respiratory rate 20 /min [facility] 12-09-2023 11:01-0400 SaO2% (BldA) [Mass fraction] 97 % [facility] 12-09-2023 11:01-0400 Systolic blood pressure 143 mm[Hg] [facility] 09-30-2023 14:31-0400 Body height 165.1 cm [facility] 09-30-2023 14:31-0400 Body mass index (BMI) [Ratio] 39.2 kg/m2 [facility] 09-30-2023 14:31-0400 Body temperature 96.8 [degF] [facility] 09-30-2023 14:31-0400 Body weight 107.04 kg [facility] 09-30-2023 14:31-0400 Diastolic blood pressure 86 mm[Hg] [facility] 09-30-2023 14:31-0400 Heart rate 88 /min [facility] 09-30-2023 14:31-0400 Respiratory rate 20 /min [facility] 09-30-2023 14:31-0400 SaO2% (BldA) [Mass fraction] 97 % [facility] 09-30-2023 14:31-0400 Systolic blood pressure 134 mm[Hg] [facility] 07-13-2023 09:47-0500 Body height 165.1 cm Mary Anne Babb DPM Work Phone: [facility] 07-13-2023 09:47-0500 Body mass index (BMI) [Ratio] 39.94 kg/m2 Mary Anne Babb DPM Work Phone: [facility] 07-13-2023 09:47-0500 Body weight 108.86 kg Mary Anne Babb DPM Work Phone: [facility] 07-13-2023 09:47-0500 Diastolic blood pressure 73 mm[Hg] Chrislulúer Bohach DPM Work Phone: [facility] 07-13-2023 09:47-0500 Heart rate 72 /min Christopher Bohach DPM Work Phone: [facility] 07-13-2023 09:47-0500 Respiratory rate 16 /min Chrislulúer Bohach DPM Work Phone: [facility] 07-13-2023 09:47-0500 Systolic blood pressure 140 mm[Hg] Chrisopher Bohach DPM Work Phone: [facility] 09-07-2022 10:00-0400 Body height 165.1 cm German Miranda Other [employer] Other 09-07-2022 10:00-0400 Body mass index (BMI) [Ratio] 38.27 kg/m2 Markleroy Miranda Other [employer] Other 09-07-2022 10:00-0400 Body temperature 96.9 [degF] German Miranda Other [employer] Other 09-07-2022 10:00-0400 Body weight 104.33 kg German Miranda Other [employer] Other 09-07-2022 10:00-0400 Diastolic blood pressure 82 mm[Hg] German Miranda Other [employer] Other 09-07-2022 10:00-0400 Respiratory rate 20 /min German Miranda Other [employer] Other 09-07-2022 10:00-0400 SaO2% (BldA) [Mass fraction] 97 % German Miranda Other [employer] Other 09-07-2022 10:00-0400 Systolic blood pressure 132 mm[Hg] German Miranda Other [employer] Other 05-05-2022 12:00-0500 Body height 165.1 cm Charline Wilburn Other [employer] Other 05-05-2022 12:00-0500 Body mass index (BMI) [Ratio] 38.27 kg/m2 Charline Wilburn Other [employer] Other 05-05-2022 12:00-0500 Body temperature 98 [degF] Charline Wilburn Other [employer] Other 05-05-2022 12:00-0500 Body weight 104.33 kg Charline Wilburn Other [employer] Other 05-05-2022 12:00-0500 Respiratory rate 18 /min Charline Wilburn Other [employer] Other 05-05-2022 12:00-0500 SaO2% (BldA) [Mass fraction] 97 % Charline Wilburn Other [employer] Other 09-28-2021 12:05-0400 Body height 165.1 cm Anais Farley Other [employer] Other 09-28-2021 12:05-0400 Body mass index (BMI) [Ratio] 36.94 kg/m2 Anais Farley Other [employer] Other 09-28-2021 12:05-0400 Body temperature 98.8 [degF] Anais Farley Other [employer] Other 09-28-2021 12:05-0400 Body weight 100.7 kg Anais Farley Other [employer] Other 09-28-2021 12:05-0400 Respiratory rate 18 /min Anais Farley Other [employer] Other 09-28-2021 12:05-0400 SaO2% (BldA) [Mass fraction] 96 % Anais Farley Other [employer] Other 09-06-2021 11:30-0400 Body height 165.1 cm Charline Cosmo Other [employer] Other 09-06-2021 11:30-0400 Body mass index (BMI) [Ratio] 37.6 kg/m2 Charline Cosmo Other [employer] Other 09-06-2021 11:30-0400 Body temperature 98.8 [degF] Charline Cosmo Other [employer] Other 09-06-2021 11:30-0400 Body weight 102.51 kg Charline Cosmo Other [employer] Other 09-06-2021 11:30-0400 SaO2% (BldA) [Mass fraction] 98 % Charline Cosmo Other [employer] Other 08-12-2021 10:45-0400 Body height 165.1 cm German Miranda Other [employer] Other 08-12-2021 10:45-0400 Body mass index (BMI) [Ratio] 37.94 kg/m2 German Miranda Other [employer] Other 08-12-2021 10:45-0400 Body temperature 97.2 [degF] German Miranda Other [employer] Other 08-12-2021 10:45-0400 Body weight 103.42 kg German Miranda Other [employer] Other 08-12-2021 10:45-0400 Diastolic blood pressure 84 mm[Hg] German Miranda Other [employer] Other 08-12-2021 10:45-0400 Respiratory rate 20 /min German Miranda Other [employer] Other 08-12-2021 10:45-0400 SaO2% (BldA) [Mass fraction] 100 % German Miranda Other [employer] Other 08-12-2021 10:45-0400 Systolic blood pressure 168 mm[Hg] German Miranda Other [employer] Other Encounters Encounter Date Encounter Type Care Provider Facility Start: 06-22-2024 End: 06-24-2024 ambulatory KRAIG ALFORD [facility] Start: 06-22-2024 End: 06-24-2024 Subsequent hospital visit by physician Kraig Alford DO Work Phone: [facility] Non-Invasive Cardiology Comment on above: Chest pain, unspecif ied type; Shortness of breath Arrived Start: 06-08-2024 End: 06-08-2024 ambulatory [facility] Work Phone: Start: 06-08-2024 End: 06-08-2024 [facility] Work Phone: Start: 06-02-2024 End: 06-04-2024 [facility] Start: 06-02-2024 End: 06-04-2024 Subsequent hospital visit by physician Carlos Aguayo MD Work Phone: [facility] Non-Invasive Cardiology Comment on above: Sinus bradycardia; Sinus pause Start: 06-02-2024 End: 06-02-2024 [facility] Start: 06-02-2024 End: 06-02-2024 Subsequent hospital visit by physician Carlos Aguayo MD Work Phone: [facility] Comment on above: Sinus bradycardia (P rimary Dx); Sinus pause Start: 05-22-2024 End: 05-24-2024 [facility] Start: 05-22-2024 End: 05-24-2024 Subsequent hospital visit by physician Suzanne Douglas MD Work Phone: [facility] Mammography Comment on above: Encounter for screen ing mammogram for malignant neoplasm of breast Start: 05-11-2024 End: 05-11-2024 [facility] Start: 05-11-2024 [facility] Start: 05-11-2024 End: 05-11-2024 Patient encounter status Suzanne Douglas MD Work Phone: [facility] Start: 05-11-2024 End: 05-11-2024 Subsequent hospital visit by physician Suzanne Douglas MD Work Phone: [facility] Comment on above: Pre-op testing Start: 04-11-2024 End: 04-11-2024 Bamboo flowsheet Neftaly Mcmanus DO Work Phone: [facility] Start: 04-11-2024 End: 04-11-2024 Bamboo flowsheet Neftaly Mcmanus DO Work Phone: [facility] Start: 04-11-2024 End: 04-11-2024 Office outpatient visit 25 minutes Neftaly Mcmanus DO Work Phone: [facility] Comment on above: Acute laryngitis (Pr imary [...] GOMEZ CLIFTON Start: 03-09-2024 End: 03-09-2024 ambulatory [facility] Work Phone: Start: 03-09-2024 End: 03-09-2024 Patient encounter procedure [facility] Work Phone: Start: 12-09-2023 End: 12-09-2023 ambulatory [facility] Work Phone: Start: 12-09-2023 End: 12-09-2023 Patient encounter procedure [facility] Work Phone: Start: 10-04-2023 End: 10-04-2023 ambulatory [facility] Start: 09-30-2023 End: 09-30-2023 Patient encounter procedure [facility] Work Phone: Start: 07-13-2023 Bamboo flowsheet Mary Anne Babb DPM Work Phone: [facility] Start: 07-13-2023 Bamboo flowsheet Mary Anne Babb DPM Work Phone: [facility] Start: 07-13-2023 End: 07-13-2023 Office outpatient visit 15 minutes Mary Anne Babb DPM Work Phone: [facility] Comment on above: Diabetic polyneuropa thy associated with type 2 diabetes mellitus ([facility]/HCC) (Primary Dx); Hammer toes of both feet Start: 07-13-2023 End: 07-13-2023 ambulatory MARY ANNE BABB Not Available Start: 07-05-2023 End: 07-05-2023 ambulatory Freddy KRAUS Facility:[facility] Start: 07-05-2023 End: 07-05-2023 Patient encounter procedure Freddy KRAUS [facility] Start: 09-07-2022 End: 09-07-2022 ambulatory German Miranda Other [employer] Other Start: 09-07-2022 Office outpatient vi sit 25 minutes Kamleroy Miranda [facility] Start: 07-08-2022 End: 07-08-2022 Subsequent hospital visit by physician Kinga Faustin PT [facility] Physical Therapy Start: 07-08-2022 End: 07-08-[address] CHIKI MONIQUE Facility: Start: 05-19-2022 End: 05-21-2022 Subsequent hospital visit by physician [facility] Mammography Room [facility] Mammography Comment on above: Encounter for screen ing mammogram for malignant neoplasm of breast Start: 05-05-2022 End: 05-05-2022 ambulatory Charline Wilburn Other [employer] Other Start: 05-05-2022 Office outpatient vi sit 25 minutes Charline Wilburn [facility] Start: 04-13-2022 End: 04-13-2022 Patient encounter procedure Freddy KRAUS [facility] Start: 09-28-2021 End: 09-28-2021 ambulatory Anais Tamayoler Other [employer] Other Start: 09-28-2021 Office outpatient vi sit 15 minutes Anais Farley [facility] Start: 09-27-2021 End: 09-28-[address] SUZANNE DOUGLAS Facility: Start: 09-25-2021 End: 09-25-2021 ambulatory Mary Anne Chan Other [employer] Other Start: 09-25-2021 Telephone encounter Isai Chan [facility] Start: 09-06-2021 End: 09-06-2021 ambulatory Charline Wilburn Other [employer] Other Start: 09-06-2021 Office outpatient vi sit 15 minutes Charline Cosmo [facility] Start: 08-12-2021 End: 08-12-2021 ambulatory German Miranda Other [employer] Other Start: 08-12-2021 Office outpatient vi sit 15 minutes Kamal Chaban [facility] Start: 04-03-2020 End: 04-05-2020 Subsequent hospital visit by physician [facility] Mammography Room [facility] Mammography Comment on above: Visit [...] Subsequent hospital visit by physician Suzanne Douglas [facility] Laboratory Comment on above: Metallic taste; Disturbance of smell and taste Start: 02-15-2019 End: 02-17-2019 Subsequent hospital visit by physician [facility] Mammography Room [facility] Laboratory Comment on above: Encounter for screen ing mammogram for breast cancer Start: 05-18-2018 Patient encounter procedure PHYSICIA N [facility] Procedures Date Procedure Procedure Detail [...] Cystoscopy [place] Start: 06-19-2013 Colonoscopy [facility] Room Start: 05-08-2013 Cystoscopy [place] [...] 06-02-2034 Screening for malignant neoplasm of colon [employer] Start: 06-06-2025 Glaucoma screening Diabetic retinal exam [facility] [employer] Start: 06-02-2025 GFR test (Diabetes, CKD 3-4, OR last GFR 15-59) GFR test (Diabetes, CKD 3-4, OR last GFR 15-59) [facility] [employer] Start: 05-22-2025 Screening for malignant neoplasm of breast Breast cancer screen [facility] [employer] Start: 04-13-2025 Annual Wellness Visit (Medicare) Annual Wellness Visit (Medicare) [facility] [employer] Start: 04-12-2025 Depression Screen Depression Screen [facility] [employer] Start: 10-17-2024 End: 10-17-2024 Patient encounter procedure 10/17/2024 9:30 AM EDT Office Visit [facility] [address] [place] [id number] Kraig Alford DO [address] [place] [address] 4 month f/u [facility] Comment on above: 4 month f/u Start: 10-06-2024 Diabetic foot examination Diabetic foot exam [facility] SocialF5 [facility] Start: 10-03-2024 GFR test (Diabetes, CKD 3-4, OR last GFR 15-59) GFR test (Diabetes, CKD 3-4, OR last GFR 15-59) [facility] Start: 10-03-2024 Lipid panel Lipids [facility] Start: 10-03-2024 Urine screening for protein Diabetic Alb to Cr ratio (uACR) test [facility] Start: 07-13-2024 Hemoglobin A1c measurement A1C test (Diabetic or Prediabetic) [facility] [employer] Start: 07-13-2024 End: 07-13-2024 Patient encounter procedure 07/13/2024 9:00 AM EST Office Visit [facility] [address] [place] [address] Suzanne Douglas MD [address] [place] [address] 3 months (around 07/13/2024) for DM, HTN, Hyperlipidemia [facility] Comment on above: 3 months (around 07/13/2024) for DM, HTN, Hyperlipidemia Start: 06-02-2024 End: 06-02-2025 Extended cardiac holter monitor (3 days-14 day) [facility] Comment on above: Expected: 06/02/2024, Expires: 1 Occurrences starti ng 06/02/2024 until 06/02/2024 Start: 06-02-2024 End: 06-02-2024 Admission to same day surgery center 06/02/2024 7:30 AM EST - 06/02/2024 7:59 AM EST Surgery [facility] [address] [id number] Carlos Aguayo MD [address] [id number] COLONOSCOPY [facility] Comment on above: COLONOSCOPY Start: 06-02-2024 Subsequent hospital visit by physician 06/02/2024 7:30 AM EST Hospital Encounter [facility] [address] [place] [address] Carlos Aguayo MD [address] [place] [address] [facility] Start: 06-02-2024 End: 06-02-2024 Colonoscopy flx dx w/collj spec when pfrmd [facility] Start: 05-20-2024 Screening for malignant neoplasm of breast [facility] Start: 05-19-2024 Screening for malignant neoplasm of breast Breast cancer screen [facility] Start: 04-11-2024 End: 04-11-2024 Patient encounter procedure 04/11/2024 10:00 AM EST Office Visit [facility] [address] [place] [address] Neftaly Mcmanus W, DO [address] [place] [address] [facility] Start: 03-20-2024 End: 03-20-2024 Patient encounter procedure 03/20/2024 3:30 PM EDT Office Visit [facility] [address] [place] [address] Neftaly Mcmanus, DO [address] [place] [address] Arrived [facility] Comment on above: Arrived Start: 01-30-2024 COVID-19 Vaccine () COVID-19 Vaccine () [facility] Start: 01-30-2024 Influenza vaccination Influenza Vaccine (#1) [facility] Start: 07-13-2023 End: 07-13-2023 Patient encounter procedure 07/13/2023 9:45 AM EST Office Visit [facility] [address] [place] [id number] Mary Anne Babb, DPM [address] [place] [address] Arrived [facility] Comment on above: Arrived Start: 07-01-2023 Depression Screen [facility] Start: 06-19-2023 Colon cancer screen colonoscopy Colon cancer screen colonoscopy [facility], [place] Start: 06-19-2023 Screening for malignant neoplasm of colon [facility] Start: 06-02-2023 Glaucoma screening Diabetic retinal [facility] Start: 04-14-2023 Diabetic foot examination Diabetic foot exam [facility] Start: 04-14-2023 Hemoglobin A1c measurement A1C test (Diabetic or Prediabetic) [facility] Start: 04-12-2023 Cervical cancer screen Cervical cancer screen [place], [place] Start: 04-12-2023 Screening for malignant neoplasm of cervix Cervical cancer screen [place] Start: 01-14-2023 Depression Screen Depression Screen [facility] Start: 10-13-2022 End: 10-13-2022 Patient encounter procedure 10/13/2022 Office Visit Family Medicine Suzanne Douglas MD [address] [id number] [facility] Start: 06-30-2022 Annual Wellness Visit (AWV) Annual Wellness Visit (AWV) [facility] Start: 06-10-2022 Diabetic retinal exam Diabetic retinal exam [facility] Start: 04-08-2022 Pneumococcal 65+ years Vaccine (2 of 2 - PCV) Pneumococcal 65+ years Vaccine (2 of 2 - PCV) [facility] Start: 04-08-2022 Pneumococcal Vaccine: 65+ Years (2 - PCV) Pneumococcal Vaccine: 65+ Years (2 - PCV) [facility] Start: 04-08-2022 Pneumococcal Vaccine: 65+ Years (2 of 2 - PCV) Pneumococcal Vaccine: 65+ Years (2 of 2 - PCV) [facility] Start: 04-08-2022 Urine screening for protein [facility] Start: 04-03-2022 Screening for malignant neoplasm of breast Breast cancer screen [place] Start: 10-03-2021 GFR test (Diabetes, CKD 3-4, OR last GFR 15-59) GFR test (Diabetes, CKD 3-4, OR last GFR 15-59) [facility] Start: 10-03-2021 Lipid panel Lipids [facility] Start: 07-25-2021 COVID-19 Vaccine (3 - Booster for Patricia series) COVID-19 Vaccine (3 - Booster for Patricia series) [facility] Start: 02-15-2021 Breast cancer screen Breast cancer screen [place], [place] Start: 02-15-2021 Screening for malignant neoplasm of breast Breast cancer screen [place] Start: 10-09-2020 Creatinine measurement Creatinine monitoring [facility] [place] Start: 10-09-2020 HbA1c (Bld) [Mass fraction] A1C test (Diabetic or Prediabetic) [place] Start: 10-09-2020 Lipid panel Lipid [place] Start: 10-09-2020 Potassium monitoring Potassium monitoring [place] Start: 06-30-2020 Diabetic retinal exam Diabetic retinal exam [place], [place] Start: 04-11-2020 Diabetic microalbuminuria test Diabetic microalbuminuria test [place] Start: 04-11-2020 HbA1c (Bld) [Mass fraction] A1C test (Diabetic or Prediabetic) [place] Start: 04-10-2020 End: 04-10-2020 Office Visit 04/10/2020 Office Visit Family Suzanne Mendoza MD [address] [place] [address] [facility] Start: 01-30-2020 Influenza vaccination Flu vaccine (#1) [place] Start: 01-06-2020 Breast cancer screen Breast cancer screen [place] Start: 10-05-2019 [object Object] Diabetic foot exam [place] Start: 10-05-2019 A1C test (Diabetic or Prediabetic) A1C test (Diabetic or Prediabetic) [place] Start: 10-05-2019 Diabetic foot examination Diabetic foot exam [place] Start: 06-03-2019 Diabetic retinal exam Diabetic retinal exam [place], [place] Start: 04-12-2019 Creatinine measurement Creatinine monitoring [facility] Start: 04-12-2019 Creatinine monitoring Creatinine monitoring [place], [place] Start: 04-12-2019 Lipid panel Lipid [place] Start: 04-12-2019 Lipid screen Lipid [place] Start: 04-12-2019 Potassium monitoring Potassium monitoring [place] Start: 04-11-2019 End: 04-11-2019 Office Visit 04/11/2019 Office Visit Family Suzanne Mendoza MD [address] [place] [address] [facility] Start: 01-29-2019 Influenza vaccination Flu vaccine (#1) [place] Start: 01-05-2019 Diabetic microalbuminuria test Diabetic microalbuminuria test [place] Start: 12-29-2016 Screening for malignant neoplasm of colon [facility] Start: 2016 Respiratory Syncytial Virus (RSV) or age 60 yrs+ (1 - Risk 60-74 years 1-dose series) Respiratory Syncytial Virus (RSV) or age 60 yrs+ (1 - Risk 60-74 years 1-dose series) [facility] Start: 02-12-2006 Shingles Vaccine (1 of 2) Shingles Vaccine (1 of 2) [facility] Start: 02-12-2001 Screening for malignant neoplasm of colon [facility] Start: 02-12-1975 DTaP/Tdap/Td vaccine (1 - Tdap) DTaP/Tdap/Td vaccine (1 - Tdap) [facility] Start: 02-12-1974 Hepatitis C screening Hepatitis C screen [facility] Start: 02-12-1971 HIV screen HIV screen [place], [place] Start: 02-12-1971 HIV screening HIV screen [place] Start: 02-12-1962 Pneumococcal 0-64 years Vaccine (1 of 1 - PPSV23) Pneumococcal 0-64 years Vaccine (1 of 1 - PPSV23) [place] Start: 1956 Hepatitis C screen Hepatitis C screen [place], [place] Start: 1956 Hepatitis C screening Hepatitis C screen [place], [place] Start: 1956 Screening for malignant neoplasm of colon [facility] End: 02-15-2019 Cytology, Non-Aircraft Engine Technician Cytology, Non-Aircraft Engine Technician Lab Routine Once for 1 Occurrences starting 02/15/2019 until 02/15/2019 [place] Comment on above: Once for 1 Occurrences starting 02/16/20 19 until 02/15/2019 Cytology, Non-Aircraft Engine Technician Cytology, Non- Aircraft Engine Technician Lab Routine 02/15/2019 1:54 PM EDT [place] End: 06-22-2024 Echo (TTE) complete (PRN contrast/bubble/strain/3D ) [facility] Comment on above: 1 Occurrences starting 06/22/2024 until 06/22/2024 EKG 12 Lead EKG 12 Lead ECG Routine Pre-op testing 05/11/2024 1:52 PM EST [facility] EKG 12 Lead EKG 12 Lead ECG STAT 06/02/2024 7:59 AM EST [facility] End: 03-14-2019 Heavy Metals Screen, Urine Heavy Metals Screen, Urine Lab Routine Once for 1 Occurrences starting 03/14/2019 until 03/14/2019 [facility] [place] Comment on above: Once for 1 Occurrences starting 03/14/20 19 until 03/14/2019 Heavy Metals Screen, Urine Heavy Metals Screen, Urine Lab Routine 03/14/2019 7:38 AM EDT [facility] [place] IgA [Mass/volume] in Serum or Plasma [facility] IgE [Units/volume] i n Serum or Plasma [facility] IgG [Mass/volume] in Serum or Plasma [facility] IgM [Mass/volume] in Serum or Plasma [facility] End: 11-02-2019 PTH, Intact PTH, Intact Lab Routine Hypercalcemia 1 Occurrences starting 11/02/2019 until 11/02/2019 [facility] [place] Comment on above: 1 Occurrences starting 11/02/2019 until 11/02/2019 PTH, Intact PTH, Intact Lab Routine Hypercalcemia 11/02/2019 5:17 PM EDT [facility] [place] Serologic test for Aspergillus [facility] Immunizations Immunization Date Immunization Notes Care Provider [facility] 04-12-2024 influenza, injectabl e, madin maricruz canine kidney, preservative free Suzanne Douglas MD Work Phone: [facility] 04-06-2023 Influenza, injectabl e, Madin Maricruz Canine Kidney, preservative free, quadrivalent Mary Anne Babb DPM Work Phone: [facility] 04-06-2023 influenza virus vaccine, unspecified formulation Neftaly Mcmanus DO Work Phone: [facility] 04-14-2022 Influenza, FLUAD, (a ge 65 y+), Adjuvanted, 0.5mL [facility] [employer] Work Phone: 05-30-2021 COVID-19 Vaccine Pfizer - Documentation Purposes Only German Miranda Other [facility] Other 04-08-2021 Influenza, FLUAD, (a ge 65 y+), Adjuvanted, 0.5mL [facility] [employer] Work Phone: 04-08-2021 pneumococcal polysaccharide vaccine, 23 valent [facility] [employer] Work Phone: 08-09-2020 COVID-19 Vaccine Patricia - Documentation Purposes Only German Miranda Other [facility] 04-10-2020 influenza, injectabl e, quadrivalent, preservative free [facility] 04-11-2019 influenza virus vaccine, unspecified formulation [facility] 04-11-2019 influenza, high dose seasonal, preservative-free Kamal Chaban Other [employer] Other 04-11-2019 influenza, injectabl e, quadrivalent, preservative free [facility] [place] 04-12-2018 influenza virus vaccine, unspecified formulation [facility] 04-12-2018 influenza, high dose seasonal, preservative-free Kamal Chaban Other [employer] Other 04-12-2018 influenza, injectabl e, quadrivalent, preservative free [facility] Payers Date Payer Category Payer Private Health Insurance [id number] 2022 Medicare [id number] 2017 Unknown UMR NRECA UMR xx xxxxxxxxxx 2017-[place] [address] [id number] 1959 Medicare [id number] 1959 Private Health Insurance [id number] 1959 Unknown [id number] 1956 Unknown [id number] 2.16.840.1.442421.3.579.2 .593 1956 Unknown [id number] 2.16.840.1.029544.3.579.2 .593 1956 Unknown [id number] 2.16.840.1.990138.3.579.2 .1259 1956 Unknown [id number] 2.16.840.1.828918.3.579.2 .1259 1956 Unknown [id number] 2.16.840.1.569885.3.579.2 .1259 1956 Unknown [id number] 2.16.840.1.325944.3.579.2 .727 1956 Unknown [id number] 2.16.840.1.610354.3.579.2 .174 1956 Unknown [id number] 2.16.840.1.783332.3.579.2 .174 1956 Unknown [id number] 2.16.840.1.181419.3.579.2 .174 1956 Unknown [id number] 2.16.840.1.128949.3.579.2 .174 1956 Unknown [id number] 2.16.840.1.711408.3.579.2 .174 1956 Unknown [id number] 2.16.840.1.939860.3.579.2 .174 1956 Unknown [id number] 2.16.840.1.361844.3.579.2 .174 1956 Unknown [id number] 2.16.840.1.145267.3.579.2 .174 1956 Unknown [id number] 2.16.840.1.378381.3.579.2 .174 1956 Unknown [id number] 2.16.840.1.392445.3.579.2 .174 Self-pay Self Pay [id number] Social History Date Type Detail Facility Start: 03-14-2019 End: 01-10-2024 Tobacco smoking status RIIS Never smoker [facility] Start: 03-14-2019 End: 06-02-2024 Alcohol intake No [facility] Start: 1955 Sex Assigned At Not on file [place], [place] Start: 10-10-2019 End: 06-05-2024 Alcohol intake Current non-drinker of alcohol (finding) [place], [place] Exposure to SARS-CoV-2 (event) Unable to assess [place] Start: 10-10-2019 End: 01-10-2024 Tobacco use and exposure Never used [place] Tobacco smoking status Never [facility] Start: 04-14-2022 History SDOH Financial 5 [employer] Work Phone: Start: 04-14-2022 End: 07-01-2022 History SDOH Food Worry 1 [facility] [employer] Work Phone: Start: 07-01-2022 History SDOH Financial 4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
== END 2024-07-03 19:49 | disposition home or self-care (01) ==
LOC: SLEEP 19:48
PROVIDERS: PCP Internal Medicine; Visit Provider Internal Medicine
DX: G47.33 Obstructive sleep apnea (adult) (pediatric) (principal); I49.9 Cardiac arrhythmia, unspecified
CPT/HCPCS: 95810

== ENCOUNTER 2024-07-11 19:46 | Outpatient (OUT) | payer MEDICARE, SELFPAY ==
--- OUTSIDE RECORDS SUMMARY | 2024-07-11 19:49 | XMS_ITS | CCD ---
Author Organization [facility] ion Partnership [facility] Care Team Providers Care Conveyor Man Name Role Phone NO, PHYSICIAN Unavailable Unavailable Suzanne Douglas Primary Care Provider [phone] Suzanne Douglas Primary Care Provider German Miranda Unavailable Charline Wilburn Unavailable Anais Farley Unavailable Mary Anne Chan Unavailable SUZANNE DOUGLAS Primary Care Physician [phone] Suzanne Douglas MD Primary Care Provider DR CHIKI MONIQUE Admitting Unavailable MISC, DR ZEPEDA Primary Care Unavailable ENEIDA, DR MONET Consulting Unavailable ENEIDA, DR MONET Attending Unavailable VERHOALIN, DR SUZANNE Rosales Consulting Unavailable VERHOALIN, DR SUZANNE Rosales Attending Unavailable VERHOALIN, DR SUZANNE Rosales Admitting Unavailable Suzanne Douglas MD Primary Care Provider Haider Lopez MD Unavailable Neftaly Mcmanus DO Unavailable MARY ANNE BABB Attending Unavailalessandra e NEFTALY [...] sources) Losartan Drug Allergy 4 Swelling, Rash [place], [place] (20 sources) montelukast; Translations: [montelukast] Drug Allergy 1 Rash, hives, Urticaria (disorder) [place], [place] (2 sources) montelukast; Translations: [Singulair] Drug Allergy 1 [facility] Repository Medications Current Medications Medication Drug [...] Print Requisition Start Date: 04/21/11 Status: Ordered [id number] 200 actuat albuterol 0.09 mg/actuat metered dose [...] Start: 08-28-2019 take 1 capsule by mo [facility] three times daily as needed for [...] afterwards, # 2 tab(s), Refills(s) 0, Pharmacy: [facility]/pharmacy #[id number] Start Date: 06/03/23 Status: Ordered Start: 03-13-2021 Cipro 500 mg T ab See Instructions, Take 1 tab day prior to procedure and 1 tab day of procdure - afterwards, # 2 tab(s), Refills(s) 0, Pharmacy: [facility]/pharmacy #[id number], 165, cm, 04/03/21 14:42:00 EDT, Height/Length Dosing, 105.9, kg, 04/03/21 14:42:00 EDT, Weight Dosing Start Date: 03/24/22 Status: Ordered docosahexaenoic acid 120 mg / eicosapentaenoic acid 180 mg oral capsule (20 sources) take 1 capsule by mouth once daily Pep-3 Fatty Acids (FISH OIL) 1000 MG CAPS Take 1 capsule by mouth daily Active docosahexaenoic acid 1000 mg / omega-3 acid ethyl esters (care home) 300 mg delayed release oral capsule (3 sources) Pep-3 Fatty Ac ids (FISH OIL) 1000 MG [...] Ipratropium Br omide 42 mcg (0.06 %) [place],Non-Aerosol Active 2 PERCENT INTRANASAL Every morning May 12, 2018 12:00am take 2 drop(s) nasal route three times daily as needed Ipratropium [place] 0.06 % 2 drops in each nostril [...] solution (3 sources) Start: 05-11-2024 End: 06-02-2024 zljclg-jcfvtrygc-ran sulfate (SUPREP BOWEL PREP KIT) 17.5-3.13-1.6 GM/177ML [...] (ZINC PO) Take by mouth 0 Active Eszwqlwc-Pxq-Xysy-Fa-Vit K-Lut (Multivitamin Women 50 Plus) 8 mg iron-400 mcg-300 mcg Tablet (3 sources) Start: 03-09-2019 take 1 tablet by mouth once daily Nzcusqbu-Rrx-Kbgl-Fa-Vit K-Lut (Multivitamin Women 50 Plus) 8 mg iron-400 mcg-300 mcg Tablet Active 1 TAB PO Daily March 08, 2019 11:00pm Start: 03-09-2019 take 1 tablet by harlan th once daily Rscbiguy-Xzu-Iaqb-Fa-Vit K-Lut (Multivitamin Women 50 Plus) 8 mg iron-400 mcg-300 mcg Tablet Active 1 TAB PO Daily March 09, 2019 12:00am Multivitamins (7 sources) take 1 tablet by mouth once daily Multivitamins 1 tab(s) Orally Daily Active Multivitamins and Minerals (2 sources) Start: 04-15-2011 Multivitamins and Minerals Refill(s) 0 Start Date: 04/15/11 Status: Ordered Pep 6-Vbf-Phn-Fish Oil (Fish Oil) 300-1,000 mg Capsule,Delayed Release(Dr/Ec) (3 sources) Start: 05-12-2018 take 300-1000 mg by mouth once daily Pep 3-Kjb-Yhr-Fish Oil (Fish Oil) 300-1,000 mg Capsule,Delayed Release(Dr/Ec) Active 1 CAP PO Daily May 12, 2018 12:00am Start: 05-12-2018 take 300-1000 mg by mouth once daily Pep 2-Xej-Znn-Fish Oil (Fish Oil) 300-1,000 mg Capsule,Delayed Release(Dr/Ec) [...] 30, 2023 12:00am December 09, 2023 11:00am Sidrvlea-Uyz-Zmqkhyf Fumarate (Multi Vitamin) 9 mg iron/15 mL Liquid (3 sources) Start: 05-12-2018 End: 03-09-2019 take 1 tablet by mouth once daily Pvzzxmvk-Bgj-Fatrkdm Fumarate (Multi Vitamin) 9 mg iron/15 mL Liquid Discontinued 1 TAB PO Daily May 12, 2018 12:00am March 09, 2019 7:36am Start: 05-12-2018 End: 03-09-2019 take 1 tablet by mouth once daily Xkxpzlfo-Xzw-Asuabqb Fumarate (Multi Vitamin) 9 mg iron/15 mL [...] 06-22-2024 Baseline Diastolic BP 70 mmHg [facility] Work Phone: Baseline HR 72 BPM [facility] Work Phone: Baseline Systolic BP 151 mmHg [facility] Work Phone: Nuc Stress EF 77 % [facility] Work Phone: Stress Diastolic BP 70 mmHg [facility] Work Phone: Stress Estimated Workload 1.0 [facility] Work Phone: Stress Peak HR 91 BPM [facility] Work Phone: Stress Percent HR Achieved 60 % [facility] Work Phone: Stress Rate Pressure Product 92893 BPM*mmHg [facility] Work Phone: Stress Systolic BP 151 mmHg [facility] Work Phone: Stress Target HR 152 bpm [facility] Work Phone: TID 1.05 [facility] Work Phone: [facility] Work Phone: No Panel Informationon 06-22 Stress [...] The study is positive for myocardial ischemia. [facility] STRESS Radiology Study observation (narrative) [employer] Reminderson 06-19-2024 Reminders Reminders -- From: Jodi Fisher To: EU - Recalls Cook; Sent: 07/07/2023 11:29:44 EST Show up: 06/05/2024 11:29:00 EST Subject: Recall: Scope 07/2024 Due Date/Time: 06/05/2024 11:29:00 EST Reminder/Recall Schedule repeat testing. Test: Cystoscopy (FISH/Cytol) Test due in: 12 months Left message requesting pt to call office Pt is scheduled Normal [facility] Basic Metabolic Panelon Anion gap [Moles/Vol] 11 mmol/L 9 - 17 mmol/L [facility] Calcium [Mass/Vol] 9.5 mg/dL 8.6 - 10. 4 mg/dL [facility] Chloride [Moles/Vol] 100 mmol/L 98 - 10 7 mmol/L [facility] CO2 [Moles/Vol] 26 mmol/L 20 - 31 mmol/L [facility] Creatinine [Mass/Vol] 0.7 mg/dL 0.5 - 0.9 mg/dL [facility] EstJessica Rate - PINF [facility] [employer] Comment on above: These results are not [...] 185 mg/dL High 70 - 99 mg/dL [facility] Interpretation and review of laboratory results Abnormal [facility] Potassium [Moles/Vol] 3.8 mmol/L 3.7 - 5.3 mmol/L [facility] Sodium [Moles/Vol] 137 mmol/L 135 - 144 mmol/L [facility] Urea nitrogen [Mass/Vol] 18 mg/dL 8 - 23 mg/dL [facility] Urea nitrogen/Creatinine [Mass ratio] 26 mg/mg High 9 - 20 [facility] Basic Metabolic Profon 06-02 Anion gap [Moles/Vol] 11 mmol/L Normal 9-17 [facility] Comment on above: Performed By: #### M Allie BMP, TROPI #### [facility] [address] [place], [place] [id number] Home Care Nurse: Naldo Tinsley MD BUN/CRE Ratio 26 High - [facility] Comment on above: Performed By: #### M AGUSTÍN Kelley, TROPI #### [facility] [address] [place], [place] [id number] Home Care Nurse: Naldo Tinsley MD Calcium [Mass/Vol] 9.5 mg/dL Normal 8.6-10.4 [facility] Comment on above: Performed By: #### M Allie, BMP, TROPI #### [facility] [address] [place], [place] [id number] Home Care Nurse: Naldo Tinsley MD Chloride [Moles/Vol] 100 mmol/L Normal 98-107 [facility] Comment on above: Performed By: #### M Allie, BMP, TROPI #### [facility] [address] [place], [place] [id number] Home Care Nurse: Naldo Tinsley MD CO2 [Moles/Vol] 26 mmol/L Normal 20-31 [facility] Comment on above: Performed By: #### M Allie, BMP, TROPI #### [facility] [address] [place], [place] [id number] Home Care Nurse: Naldo Tinsley MD Creatinine [Mass/Vol] 0.7 mg/dL Normal 0.5-0.9 [facility] Comment on above: Performed By: #### AGUSTÍN Navarrete TROPI #### [facility] [address] [place] [address] Home Care Nurse: Naldo Tinsley MD GFR/1.73 sq M.predicted among non-blacks MDRD (S/P/Bld) [Vol rate/Area] mL/min/{1.73_m2} Normal >60 [facility] Comment on above: Result Comment: These results [...] Performed By: #### AGUSTÍN Navarrete TROPI #### [facility] [address] [place] [address] Home Care Nurse: Naldo Tinsley MD Glucose [Mass/Vol] 185 mg/dL High 70-99 [facility] Comment on above: Performed By: #### AGUSTÍN Navarrete TROPI #### [facility] [address] [place] [address] Home Care Nurse: Naldo Tinsley MD Potassium [Moles/Vol] 3.8 mmol/L Normal 3.7-5.3 [facility] Comment on above: Performed By: #### AGUSTÍN Navarrete, TROPI #### [facility] [address] [place] [address] Home Care Nurse: Naldo Tinsley MD Sodium [Moles/Vol] 137 mmol/L Normal 135-144 [facility] Comment on above: Performed By: #### AGUSTÍN Navarrete, TROPI #### [facility] [address] [place] [address] Home Care Nurse: Naldo Tinsley MD Urea nitrogen [Mass/Vol] 18 mg/dL Normal 8-23 [facility] Comment on above: Performed By: #### AGUSTÍN Navarrete, TROPI #### [facility] [address] [place] [address] Home Care Nurse: Naldo Tinsley MD Magnesiumon 06-02-2024 Magnesium [Mass/Vol] 1.8 mg/dL 1.6 - 2 .6 mg/dL [facility] Magnesium [Mass/Vol] 1.8 mg/dL Normal 1.6-2.6 [facility] Comment on above: Performed By: #### AGUSTÍN Navarrete, TROPI #### [facility] [address] [place] [address] Home Care Nurse: Naldo Tinsley MD No Panel Informationon 06-02 [facility] Troponinon 06-02-2024 Troponin I.cardiac High sensitivity method [Mass/Vol] 13 ng/L 0 - 14 ng/L [facility] Comment on above: High Sensitivity Tro ponin values cannot be compared with other Troponin methodologies. [facility] Troponin, High Sens 13 ng/L Normal 0-14 [facility] Comment on above: Result Comment: High Sensitivity Troponin values cannot be compared with other Troponin methodologies. Performed By: #### AGUSTÍN Navarrete, TROPI #### [facility] [address] [place] [address] Home Care Nurse: Naldo Tinsley MD DBT Breast - bilateral scree nagin 05-23-2024 OVERALL ASSESSMENT: BIRADS: 1 Negative, no evidence of malignancy. A letter of notification will be mailed to the patient. Performing Facility: [facility] [address] [place] [address] [facility] RIS CONSOLIDATED HISTORY: Screening. Family [...] scree Rosalesrdered By: Mehul Doyle on 05-23-2024 [facility] Work Phone: [facility] DIGITAL SCREEN AYESHA Scott [...] be mailed to the patient. Performing Facility: [facility] [address] [place], [place] [address] Interpreted by: Mehul Doyle Jr., MD Signed by: Mehul Doyle Jr., MD 05/23/24 Final result Normal [facility] DBT Breast - bilateral kenny manuel 05-22-2024 Radiology Study observation (narrative) [facility] Comp Metabolic Profon 2023 Albumin [Mass/Vol] 3.9 g/dL Normal 3.5-5.2 [facility] Comment on above: Performed By: #### C P #### [facility] [address] [place] [address] Home Care Nurse: Naldo Tinsley MD #### LIPR, GLYHGB #### [facility] [employer] [address] [place] [address] Home Care Nurse: Nelson Mckenzie MD Alkaline Phos 59 U/L Normal 35-104 [facility] Comment on above: Performed By: #### C P #### [facility] [address] [place] [address] Home Care Nurse: Naldo Tinsley MD #### LIPMatt GLYHGB #### [facility] [address] [place] [address] Home Care Nurse: Nelson Mckenzie MD ALT [Catalytic activity/Vol] 21 U/L Normal 5-33 [facility] Comment on above: Performed By: #### C P #### [facility] [address] [place] [address] Home Care Nurse: Naldo Tinsley MD #### MIKE GLYHGB #### [address] [place] [address] Home Care Nurse: Nelson Mckenzie MD Anion gap [Moles/Vol] 12 mmol/L Normal 9-17 [facility] Comment on above: Performed By: #### C P #### [facility] [address] [place] [address] Home Care Nurse: Naldo Tinsley MD #### MIKE GLYHGB #### [facility] [address] [place] [address] Home Care Nurse: Nelson Mckenzie MD AST [Catalytic activity/Vol] 23 U/L Normal <32 [facility] Comment on above: Performed By: #### C P #### [facility] [address] [place] [address] Home Care Nurse: Naldo Tinsley MD #### LIPR, GLYHGB #### [facility] [address] [place] [address] Home Care Nurse: Nelson Mckenzie MD Bilirubin [Mass/Vol] 0.6 mg/dL Normal 0.3-1.2 [facility] Comment on above: Performed By: #### C P #### [facility] [address] [place], [place] [id number] Home Care Nurse: Naldo Tinsley MD #### LIPR, GLYHGB #### [address] [id number] Home Care Nurse: Nelson Mckenzie MD BUN/CRE Ratio 30 High 9-20 [facility] Comment on above: Performed By: #### C P #### [facility] [address] [place], [place] [id number] Home Care Nurse: Naldo Tinsley MD #### LIPR, GLYHGB #### [address] [id number] Home Care Nurse: Nelson Mckenzie MD Calcium [Mass/Vol] 9.7 mg/dL Normal 8.6-10.4 [facility] Comment on above: Performed By: #### C P #### [facility] [address] [place] [address] Home Care Nurse: Naldo Tinsley MD #### LIPR, GLYHGB #### [address] [address] Home Care Nurse: Nelson Mckenzie MD Chloride [Moles/Vol] 98 mmol/L Normal 98-107 [facility] Comment on above: Performed By: #### C P #### [facility] [address] [place], [place] [phone] Home Care Nurse: Naldo Tinsley MD #### LIPR, GLYHGB #### [address] [address] Home Care Nurse: Nelson Mckenzie MD CO2 [Moles/Vol] 25 mmol/L Normal 20-31 [facility] Comment on above: Performed By: #### C P #### [facility] [address] [place], [place] [id number] Home Care Nurse: Naldo Tinsley MD #### LIPR, GLYHGB #### [facility] [employer] [address] [place] [address] Home Care Nurse: Nelson Mckenzie MD Creatinine [Mass/Vol] 0.7 mg/dL Normal 0.5-0.9 [facility] Comment on above: Performed By: #### C P #### [facility] [address] [place], [place] [id number] Home Care Nurse: Naldo Tinsley MD #### LIPR, GLYHGB #### [address] [address] Home Care Nurse: Nelson Mckenzie MD GFR/1.73 sq M.predicted among non-blacks MDRD (S/P/Bld) [Vol rate/Area] mL/min/{1.73_m2} Normal >60 [facility] Comment on above: Result Comment: These results [...] secretion. Performed By: #### C P #### [facility] [address] [place], [place] [id number] Home Care Nurse: Naldo Tinsley MD #### LIPMatt, GLYHGB #### [address] [address] Home Care Nurse: Nelson Mckenzie MD Glucose [Mass/Vol] 138 mg/dL High 70-99 [facility] Comment on above: Performed By: #### C P #### [facility] [address] [place] [address] Home Care Nurse: Naldo Tinsley MD #### LIPMatt, GLYHGB #### [address] [phone] Home Care Nurse: Nelson Mckenzie MD Potassium [Moles/Vol] 4.3 mmol/L Normal 3.7-5.3 [facility] Comment on above: Performed By: #### C P #### [facility] [address] [place], [place] [phone] Home Care Nurse: Naldo Tinsley MD #### LIPMatt GLYHGB #### [address] [id number] Home Care Nurse: Nelson Mckenzie MD Protein [Mass/Vol] 7.1 g/dL Normal 6.4-8.3 [facility] Comment on above: Performed By: #### C P #### [facility] [address] [place], [place] [id number] Home Care Nurse: Naldo Tinsley MD #### MIKE GLYHGB #### [address] [place] [address] Home Care Nurse: Nelson Mckenzie MD Sodium [Moles/Vol] 135 mmol/L Normal 135-144 [facility] Comment on above: Performed By: #### C P #### [facility] [address] [place], [place] [id number] Home Care Nurse: Naldo Tinsley MD #### MIKE GLYHGB #### [address] [address] Home Care Nurse: Nelson Mckenzie MD Urea nitrogen [Mass/Vol] 21 mg/dL Normal 8-23 [facility] Comment on above: Performed By: #### C P #### [facility] [address] [place], [place] [id number] Home Care Nurse: Naldo Tinsley MD #### LIPR, GLYHGB #### [address] [id number] Home Care Nurse: Nelson Mckenzie MD Hemoglobin A1Con 10-04-2023 Glucose [Mass/Vol] 243 mg/dL Normal [facility] Comment on above: Result Comment: The ADA and AACC recommend providing the estimated average glucose result to permit better patient understanding of their HBA1c result. Performed By: #### C P #### [facility] [address] [place], [place] [id number] Home Care Nurse: Naldo Tinsley MD #### LIPR GLYHGB #### [address] [id number] Home Care Nurse: Nelson Mckenzie MD HbA1c (Bld) [Mass fraction] 10.1 % High 4.0-6.0 [facility] Comment on above: Performed By: #### C P #### [facility] [address] [place], [place] [address] Home Care Nurse: Naldo Tinsley MD #### LIPMatt GLYHGB #### [facility] [address] [place], [place] [address] Home Care Nurse: Nelson Mckenzie MD Lipid Profileon 10-04-2023 Cholesterol [Mass/Vol] 181 mg/dL Normal 0-199 [facility] Comment on above: Result Comment: Cholesterol Guidelines: <200 Desirable 200-240 Borderline >240 Undesirable Performed By: #### C P #### [facility] [address] [place], [place] [id number] Home Care Nurse: Naldo Tinsley MD #### LIPR, GLYHGB #### [facility] [address] [place], [place] [id number] Home Care Nurse: Nelson Mckenzie MD Cholesterol in HDL [Mass/Vol] 68 mg/dL Normal >40 [facility] Comment on above: Result Comment: HDL Guidelines: <40 Undesirable 40-59 Borderline >59 Desirable Performed By: #### C P #### [facility] [address] [place], [place] [address] Home Care Nurse: Naldo Tinsley MD #### LIPR, GLYHGB #### [facility] [place] [address] Home Care Nurse: Nelson Mckenzie MD Cholesterol in LDL [Mass/Vol] 82 mg/dL Normal 0-100 [facility] Comment on above: Result Comment: LDL Guidelines: <100 Desirable 100-129 Near to/above Desirable 130-159 Borderline >159 Undesirable Direct (measured) LDL and calculated LDL are not interchangeable tests. Performed By: #### C P #### [facility] [address] [place] [address] Home Care Nurse: Naldo Tinsley MD #### LIPMatt, GLYHGB #### [address] [phone] Home Care Nurse: Nelson Mckenzie MD Cholesterol in VLDL [Mass/Vol] 32 mg/dL Normal [facility] Comment on above: Performed By: #### C P #### [facility] [address] [place] [address] Home Care Nurse: Naldo Tinsley MD #### LIPR, GLYHGB #### [address] [address] Home Care Nurse: Nelson Mckenzie MD Cholesterol.total/Chol esterol in HDL [Mass ratio] 3.0 {ratio} Normal [facility] Comment on above: Performed By: #### C P #### [facility] [address] [place] [address] Home Care Nurse: Naldo Tinsley MD #### LIPR, GLYHGB #### [address] [place] [address] Home Care Nurse: Nelson Mckenzie MD Triglyceride [Mass/Vol] 159 mg/dL High <150 [facility] Comment on above: Result Comment: Triglyceride Guidelines: <150 Desirable 150-199 Borderline 200-499 High >499 Very high Based on AHA Guidelines for fasting triglyceride, February 2012. Performed By: #### C P #### [facility] [address] [place] [address] Home Care Nurse: Naldo Tinsley MD #### LIPR, GLYHGB #### [address] [address] Home Care Nurse: Nelson Mckenzie MD Microalb.,Random Uron 2023 Creatinine [Mass/Vol] 36.4 mg/dL Normal 28.0-217.0 [facility] Comment on above: Performed By: #### U RNMAB #### [address] [address] Home Care Nurse: Nelson Mckenzie MD Microalb/Creat Ratio Can not be calculated Normal <25 [facility] Comment on above: Performed By: #### U RNMAB #### [address] [address] Home Care Nurse: Nelson Mckenzie MD Microalbumin conc. <12 Normal <21 [facility] Comment on above: Performed By: #### U RNMAB #### [address] [address] Home Care Nurse: Nelson Mckenzie MD [facility] Fish and Urine Cyt o ([facility])on 07-12-2023 UVFISH & UC Diagnosis Info Invalid Interpretation Code [facility] Comment on above: Result Comment: A:Ur [...] correlated with cytology and cystoscopy results.* CPT 46028, 18106. 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 Electronically signed by : on: 07/12/2023 12:28:58 Performed By: #### 1 [id number] #### [facility] [address] [place] [address] Consent for Procedure/Surger yon 07-05-2023 Consent for Procedure/Surgery [id number] 69#[id number] Normal [facility] Consent for Treatmenton Consent for Treatment [id number] 89#[id number] Normal [facility] Inpatient Patient Summaryon 07-05-2023 Inpatient Patient Summary [address] [address] Clinical Summary Person Information Name: KATHRYN GIORDANO Age: 68 Years : 1955 Sex: Female PCP: SUZANNE DOUGLAS MD Marital Status: Race: White Ethnicity: Non- or Language: Macedonian Visit Id: Visit Reason: BLADDER CANCER Speciality: Acuity: Enc Type: Outpatient Med Service: Surgery Arrival: 07/05/2023 15:17:52 Discharge: Dispo Type: Address: [address] [place] [address] [place] [id number] Provider Notes: Diagnosis: Problems Active History of [...] up: With: Address: When: Freddy KRAUS [address] [facility], [address], [place] [address] [facility] (1) Comments: As we discussed, your bladder looks good. Evidence of prior scars. The plan will be for a repeat scope in about 1 year provided the FISH test is negative. Please finish your antibiotic. Have a great day. Patient Education Information: EU - Cystoscopy Discharge Instructions (Custom) [facility] IntraOperative Documentson 0 07-05-2023 IntraOperative Documents [id number] 35#[id number] [facility] Main OR Intraoperative Recor don 07-05-2023 Main OR Intraoperative Record IntraOp Document Type FTURO Summary Primary Physician: Freddy KRAUS MD Finalized Date/Time: 07/05/23 16:15:35 Pt. Name: KATHRYN GIORDANO Julieth Harrell/Sex: 1955 Female Med Rec #: [id number] Physician: Freddy KRAUS MD Financial #: [id number] Pt. 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 Condition Intact, [place], Warm, and Dry Additional FISH Specimens Collected [...] 16:15 Eliza Jose E 07/05/23 16:[address] [facility] Main OR Preoperative Recordo n 07-05-2023 Main OR Preoperative Record Holding Area Document Type FTURO Summary Primary Physician: Freddy KRAUS MD Finalized Date/Time: 07/05/23 15:53:59 Pt. Name: KATHRYN GIORDANO /Sex: 1955 Female Med Rec #: [id number] Physician: Freddy KRAUS MD Financial #: [id number] Pt. Type: O Room/Bed: / Admit/Disch: 07/05/23 [...] De Leon RN, Ruthann 07/05/23 15:[address] [facility] Operative Reporton Operative Report Patient: KATHRYN GIORDANO Age: 68 years Sex: Female : 1955 Associated Diagnoses: None Author: Freddy KRAUS MD Procedure Operative Information Details: Date/ Time: 07/05/2023 16:15:00. 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 Post-Op Dx: Same. Anesthesia [...] FISH test and cytology are negative.. Normal [facility] Comment on above: Result Comment: Elec tronically Signed By: Freddy KRAUS MD\.br\Date and Time Signed: 07/05/23 16:16 EST Outpatient Surgery Discharge Instructionon 07-05-2023 Outpatient Surgery Discharge Instruction [address] [address] Patient Discharge Instructions PERSON INFORMATION [...] With: Address: When: Freddy ROSA, [address], [facility] [address] [id number] Business (1) Comments: As we discussed, your [...] to serve you. Thank you for choosing [facility] Normal [facility] Fish and Urine Cyt o ([facility])on 07-05-2023 [facility] Method of Extraction Voided Normal [facility] Comment on above: Performed By: #### 1 [id number] #### [facility] [address] [place] [address] [facility] Number of Jars [address] [facility] Comment on above: Performed By: #### 1 [id number] #### [facility] [address] [place] [address] [facility] Specimen Urine Normal [facility] Comment on above: Performed By: #### 1 [id number] #### [facility] [address] [place] [address] [facility] Type of Service Technical Only Normal [facility] Comment on above: Performed By: #### 1 [id number] #### [facility] [address] [place] [address] AMYLASEon 07-08-2022 Amylase [Catalytic activity/Vol] 32 U/L Normal 25-115 [facility] Comment on above: Performed By: #### A MY, CMP, LIPA #### [facility] [address] [place] [address] Dr. Navi Day CBC AUTO DIFFon 07-08-2022 BASO # 0.0 103/ul Normal 0.0-0.1 [facility] Comment on above: Performed By: #### C BC #### [facility] [address] [place] [address] Dr. Navi Day Basophils/100 WBC (Bld) 0.3 % Normal 0.2-2.0 [facility] Comment on above: Performed By: #### C BC #### [facility] [address] [place] [address] Dr. Navi Day EO # 0.0 103/ul Normal 0.0-0.7 [facility] Comment on above: Performed By: #### C BC #### [facility] [address] [place] [address] Dr. Navi Day Eosinophils/100 WBC (Bld) 0.6 % Critically low 0.9-7.0 [facility] Comment on above: Performed By: #### C BC #### [facility] [address] [place] [address] Dr. Navi Day Erythrocyte distribution width (RBC) [Ratio] 12.7 % Normal 11.0-15.0 [facility] Comment on above: Performed By: #### C BC #### [facility] [address] [place] [address] Dr. Navi Day Hematocrit (Bld) [Volume fraction] 42.2 % Normal 36.0-48.0 [facility] Comment on above: Performed By: #### C BC #### [facility] [address] [place] [address] Dr. Navi Day Hemoglobin (Bld) [Mass/Vol] 14.2 g/dL Normal 12.0-16.0 [facility] Comment on above: Performed By: #### C BC #### [facility] [address] [place] [address] Dr. aNvi Day IG # 0.03 10e3/ul Normal 0.00-0.03 [facility] Comment on above: Performed By: #### C BC #### [facility] [address] [place] [address] Dr. Navi Day IG % 0.5 % Normal 0.0-0.5 [facility] Comment on above: Performed By: #### C BC #### [facility] [address] [place] [address] Dr. Navi Day LYMPH # 0.8 103/ul Critically low 1.2-3.8 [facility] Comment on above: Performed By: #### C BC #### [facility] [address] [place] [address] Dr. Navi Day Lymphocytes/100 WBC (Bld) 12.6 % Critically low 20.5-60.0 [facility] Comment on above: Performed By: #### C BC #### [facility] [address] [place] [address] Dr. Navi Day MANUAL DIFF REQ NO Normal [facility] Comment on above: Performed By: #### C BC #### [facility] [address] [place] [address] Dr. Navi Day MCH (RBC) [Entitic mass] 27.8 pg Normal 26.7-34.0 [facility] Comment on above: Performed By: #### C BC #### [facility] [address] [place] [address] Dr. Navi Day MCHC (RBC) [Mass/Vol] 33.6 g/dL Normal 29.9-35.2 [facility] Comment on above: Performed By: #### C BC #### [facility] [address] [place] [address] Dr. Navi Day MCV (RBC) [Entitic vol] 82.6 fL Normal 81.0-99.0 [facility] Comment on above: Performed By: #### C BC #### [facility] [address] [place] [address] Dr. Navi Day MONO # 0.5 103/ul Normal 0.3-0.8 [facility] Comment on above: Performed By: #### C BC #### [facility] [address] [place] [address] Dr. Navi Day Monocytes/100 WBC (Bld) 7.6 % Normal 1.7-12.0 [facility] Comment on above: Performed By: #### C BC #### [facility] [address] [place] [address] Dr. Navi Day NEUT # 5.0 103/ul Normal 1.4-6.5 [facility] Comment on above: Performed By: #### C BC #### [facility] [address] [place] [address] Dr. Navi Day Neutrophils/100 WBC (Bld) 78.4 % Critically high 43.0-75.0 [facility] Comment on above: Performed By: #### C BC #### [facility] [address] [place] [address] Dr. Navi Day Platelet mean volume (Bld) [Entitic vol] 10.2 fL Normal 9.5-13.5 [facility] Comment on above: Performed By: #### C BC #### [facility] [address] [place] [address] Dr. Navi Day PLT 243 103/ul Normal 150-450 [facility] Comment on above: Performed By: #### C BC #### [facility] [address] [place] [address] Dr. Navi Day RBC 5.11 106/ul Normal 4.20-5.40 [facility] Comment on above: Performed By: #### C BC #### [facility] [address] [place] [address] Dr. Navi Day WBC 6.4 103/ul Normal 4.0-11.0 [facility] Comment on above: Performed By: #### C BC #### [facility] [address] [place] [address] ABD/PELV W CONon [...] Lisandra CAMERON Date: 2022-07-08 21:04 Normal [facility] ER URINE PROFILEon 3 Bilirubin Ql (U) Negative Normal NEGATIVE [facility] Comment on above: Performed By: #### E RUR #### [facility] [address] [place] [address] Dr. Navi Day Clarity (U) CLEAR Normal CLEAR [facility] Comment on above: Performed By: #### E RUR #### [facility] [address] [place] [address] Dr. Navi Day Color (U) YELLOW Normal YELLOW [facility] Comment on above: Performed By: #### E RUR #### [facility] [address] [place] [address] Dr. Navi PATRICIO A micrscopic examination will be performed if indicated. Normal [facility] Comment on above: Performed By: #### E RUR #### [facility] [address] [place] [address] Dr. Navi Day Glucose Ql (U) Negative Normal NEGATIVE [facility] Comment on above: Performed By: #### E RUR #### [facility] [address] [place] [address] Dr. Navi Day Hemoglobin Ql (U) Negative Normal NEGATIVE [facility] Comment on above: Performed By: #### E RUR #### [facility] [address] [place] [address] Dr. Navi Day Ketones Ql (U) 15 mg/dl Abnormal NEGATIVE [facility] Comment on above: Performed By: #### E RUR #### [facility] [address] [place] [address] Dr. Navi Day LEUKOCYTES TRACE Abnormal NEGATIVE [facility] Comment on above: Performed By: #### E RUR #### [facility] [address] [place] [address] Dr. Navi Day Nitrite Ql (U) Negative Normal NEGATIVE [facility] Comment on above: Performed By: #### E RUR #### [facility] [address] [place] [address] Dr. Navi Day pH (U) 6.0 [pH] Normal 5-9 [facility] Comment on above: Performed By: #### E RUR #### [facility] [address] [place] [address] Dr. Navi Day SPEC GRAVITY 1.010 Normal 1.005-<=1.02 5 [facility] Comment on above: Performed By: #### E RUR #### [facility] [address] [place] [address] Dr. Navi Day UA PROTEIN Negative Normal NEGATIVE/ TRACE [facility] Comment on above: Performed By: #### E RUR #### [facility] [address] [place] [address] Dr. Navi Day UR MICRO IND NOT INDICATED Normal [facility] Comment on above: Performed By: #### E RUR #### [facility] [address] [place] [address] Dr. Navi Day Urobilinogen Qn (U) 0.2 {Claire'U}/dL Normal 0.2 - 1. 0 [facility] Comment on above: Performed By: #### E RUR #### [facility] [address] [place] [address] Dr. Navi Day LIPASEon 07-08-2022 Lipase [Catalytic activity/Vol] 105.0 U/L Normal 73.0-393.0 [facility] Comment on above: Performed By: #### A MY, CMP, LIPA #### [facility] [address] [place] [address] [address] Navi Day PROF 14(COMP METB)on 023 Albumin [Mass/Vol] 3.1 g/dL Critically low 3.4-5.0 [facility] Comment on above: Performed By: #### A MY, CMP, LIPA #### [facility] [address] [place] [address] [address] Navi Day Albumin/Globulin [Mass ratio] 0.8 {ratio} Normal [facility] Comment on above: Performed By: #### A MY, CMP, LIPA #### [facility] [address] [place] [address] Dr. Naiv Day ALP [Catalytic activity/Vol] 58 U/L Normal 46-116 [facility] Comment on above: Performed By: #### A MY, CMP, LIPA #### [facility] [address] [place] [address] [address] Navi Day ALT [Catalytic activity/Vol] 22 U/L Normal 14-59 [facility] Comment on above: Performed By: #### A MY, CMP, LIPA #### [facility] [address] [place] [address] Dr. Navi Day Anion gap [Moles/Vol] 12.5 mmol/L Normal [facility] Comment on above: Performed By: #### A MY, CMP, LIPA #### [facility] [address] [place] [address] Dr. Navi Day AST [Catalytic activity/Vol] 23 U/L Normal 15-37 [facility] Comment on above: Performed By: #### A MY, CMP, LIPA #### [facility] [address] [place] [address] Dr. Navi Day Bilirubin [Mass/Vol] 0.5 mg/dL Normal 0.2-1.0 [facility] Comment on above: Performed By: #### A MY, CMP, LIPA #### [facility] [address] [address] [address] Navi Day Calcium [Mass/Vol] 9.0 mg/dL Normal 8.5-10.1 [facility] Comment on above: Performed By: #### A MY, CMP, LIPA #### [facility] [address] [place] [address] [address] Navi Day Chloride [Moles/Vol] 100 mmol/L Normal 98-107 [facility] Comment on above: Performed By: #### A MY, CMP, LIPA #### [facility] [address] [address] [address] Navi Day CO2 [Moles/Vol] 27.0 mmol/L Normal 21.0-32.0 [facility] Comment on above: Performed By: #### A MY, CMP, LIPA #### [facility] [address] [place] [address] Dr. Navi Day Creatinine [Mass/Vol] 0.79 mg/dL Normal 0.55-1.02 [facility] Comment on above: Performed By: #### A MY, CMP, LIPA #### [facility] [address] [place] [address] Dr. Navi Day EGFR-AF MONTENEGRIN >60 Normal >=60 [facility] Comment on above: Performed By: #### A MY, CMP, LIPA #### [facility] [address] [place] [address] Dr. Navi Day EGFR-NON AF MONTENEGRIN >60 Normal >=60 [facility] Comment on above: Performed By: #### A MY, CMP, LIPA #### [facility] [address] [place] [address] Dr. Navi Day Globulin (S) [Mass/Vol] 3.8 g/dL Normal [facility] Comment on above: Performed By: #### A MY, CMP, LIPA #### [facility] [address] [place] [address] Dr. Navi Day Glucose [Mass/Vol] 168 mg/dL Critically high 74-106 [facility] Comment on above: Performed By: #### A MY, CMP, LIPA #### [facility] [address] [place] [address] [address] Navi Day Potassium [Moles/Vol] 3.5 mmol/L Normal 3.5-5.1 [facility] Comment on above: Performed By: #### A MY, CMP, LIPA #### [facility] [address] [place] [address] Dr. Navi Day Protein [Mass/Vol] 6.9 g/dL Normal 6.4-8.2 [facility] Comment on above: Performed By: #### A MY, CMP, LIPA #### [facility] [address] [address] [address] Navi Day Sodium [Moles/Vol] 136 mmol/L Normal 136-145 [facility] Comment on above: Performed By: #### A MY, CMP, LIPA #### [facility] [address] [place] [address] Dr. Navi Day Urea nitrogen [Mass/Vol] 19.0 mg/dL Critically high 7.0-18.0 [facility] Comment on above: Performed By: #### A MY, CMP, LIPA #### [facility] [address] [place] [address] Dr. Navi Day Urea nitrogen/Creatinine [Mass ratio] 24.1 mg/mg Normal [facility] Comment on above: Performed By: #### A MY, CMP, LIPA #### [facility] [address] [place] [address] Dr. Navi Day [facility] DIGITAL SCREEN [facility] 05-19-2022 BI-RADS 1 - Negative, no evidence of malignancy. Normal interval followup in 12 months. OVERALL ASSESSMENT- NEGATIVE A letter of notification will be sent to the patient regarding the results. [facility] RIS CONSOLIDATED HISTORY: Screening. Family [...] RIS CONSOLIDATED Radiology Study observation (narrative) SHIRLEY Farmeron Phone: [employer] DIGITAL SCREEN BILA TERALOrdered By: Mehul Doyle on 05-19-2022 SHIRLEY Farmeron Phone: COVID/FLU/RSV RT-PCRon 05-05 SARS-CoV-2 (COVID-19) RNA JULIA+probe Ql (Unsp spec) Positive [employer] Other COVID/FLU/RSV RT-PCR Negative [facility] Other COVID Quick Testingon 2021 Result Negative [employer] Other Quick Fluon 09-28-2021 FLUAV Ab CF (S) [Titer] Negative [employer] Other FLUBV Ab CF (S) [Titer] Negative [employer] Other XR chest 2V*on 09-28-2021 XR chest 2V* [facility] [employer] Other XR chest 2V* [facility] [employer] Other XR chest 2V* [address] [place] [address] [employer] Other XR chest 2V* [place] [address] [facility] [employer] Other XR chest 2V* XRay Report [employer] Other XR chest 2V* Signed [employer] Other XR chest 2V* Patient: Kathryn Giordano MR#: [id number] [employer] Other XR chest 2V* [address] [employer] Other XR chest 2V* : 1955 Acct:[id number] [employer] Other XR chest 2V* Age/Sex: 66 / F ADM Date: 09/28/21 [employer] Other XR chest 2V* Loc: XDUCLY [facility] [employer] Other XR chest 2V* Attending Dr: Anais Farley APRN [employer] Other XR chest 2V* Ordering Provider: Anais Farley APRN [employer] Other XR chest 2V* Date of Service: 09/28/21 [employer] Other XR chest 2V* XR/XR chest 2V*: COUGH [employer] Other XR chest 2V* Copies to: Anais Farley APRN [employer] Other XR chest 2V* Plain film chest2 view [employer] Other XR chest 2V* HISTORY:Productive cough. [employer] Other XR chest 2V* COMPARISON:None [facility] [employer] Other XR chest 2V* FINDINGS: The cardiac, mediastinal and hilar silhouettes are within normal limits. No acute lung [employer] Other XR chest 2V* process, pleural effusion or pneumothorax identified. Bony structures are intact. [employer] Other XR chest 2V* XR/XR chest 2V* [employer] Other XR chest 2V* IMPRESSION: No acute process. [employer] Other XR chest 2V* Impression dictated by: Sae Stafford M.D.09/28/2021 11:55 AM [employer] Other XR chest 2V* Dictation Location: [place] [address] [employer] Other XR chest 2V* Transcribed By: LEE 09/28/21 [facility] [place] [employer] Other XR chest 2V* Dictated By: Sae Stafford DO 09/28/21 [facility]0 [facility] [employer] Other XR chest 2V* Signed By: [employer] Other XR chest 2V* 09/28/[address] [place] [address] [employer] Other XR chest 2V* [facility] [place] [address] [place] [address] XRay Report Signed Patient: Kathryn Giordano MR#: [id number] : 1955 Acct:[id number] Age/Sex: 66 / F ADM Date: 09/28/21 Loc: XDUC Room: Type: [facility] Attending Dr: Anais Farley APRN Ordering Provider: [...] Sae Stafford M.D.09/28/2021 11:55 AM Dictation Location: [place] [address] Transcribed By: LEE 09/28/21 1155 Dictated By: Sae Stafford DO 09/28/21 1155 Signed By: 09/28/21 1155 Normal [facility] LIPID PROFILEon 09-27-2021 CHOL-HDL RATIO NORM SEE BELOW Normal [facility] Comment on above: Result Comment: 3.3 - 4.4 LOW RISK 4.4 - 7.1 AVERAGE RISK 7.1 - 11.0 MODERATE RISK >11.0 HIGH RISK Performed By: #### L IPID, CMP #### [facility] [address] [address] [address] Navi Day Cholesterol [Mass/Vol] 203 mg/dL Critically high <=200 [facility] Comment on above: Performed By: #### L IPID, CMP #### [facility] [address] [address] [address] Navi Day Cholesterol in HDL [Mass/Vol] 72 mg/dL Critically high 40-60 [facility] Comment on above: Performed By: #### L IPID, CMP #### [facility] [address] [address] [address] Navi Day Cholesterol in LDL [Mass/Vol] 109.6 mg/dL Normal [facility] Comment on above: Performed By: #### L IPID, CMP #### [facility] [address] [place] [address] Dr. Nvai Day Cholesterol.total/Chol esterol in HDL [Mass ratio] 2.8 {ratio} Normal [facility] Comment on above: Performed By: #### L IPID, CMP #### [facility] [address] [address] [address] Naiv Day HDL NORMAL > or = 60 mg/dl - LOW CARDIOVASCULAR RISK <40 mg/dl - HIGH CARDIOVASCULAR RISK Normal [facility] Comment on above: Performed By: #### L IPID, CMP #### [facility] [address] [address] [address] Navi Day LDL CALC NORMAL SEE BELOW Normal [facility] Comment on above: Result Comment: <100 mg/dl OPTIMAL 100 - 129 mg/dl NEAR OR ABOVE OPTIMAL 130 - 159 mg/dl BORDERLINE HIGH 160 - 189 mg/dl HIGH >190 mg/dl VERY HIGH Performed By: #### L IPID, CMP #### [facility] [address] [address] [address] Navi Day Triglyceride [Mass/Vol] 107 mg/dL Normal <=150 [facility] Comment on above: Performed By: #### L IPID, CMP #### [facility] [address] [address] [address] Navi Day VLDL CALC 21.4 mg/dL Normal [facility] Comment on above: Performed By: #### L IPID, CMP #### [facility] [address] [address] [address] Navi Day PROF 14(COMP METB)on 022 Albumin [Mass/Vol] 3.6 g/dL Normal 3.4-5.0 [facility] Comment on above: Performed By: #### L IPID, CMP #### [facility] [address] [address] [address] Navi Day Albumin/Globulin [Mass ratio] 0.8 {ratio} Normal [facility] Comment on above: Performed By: #### L IPID, CMP #### [facility] [address] [place] [address] Dr. Navi Day ALP [Catalytic activity/Vol] 52 U/L Normal 46-116 [facility] Comment on above: Performed By: #### L IPID, CMP #### [facility] [address] [place] [address] Dr. Navi Day ALT [Catalytic activity/Vol] 34 U/L Normal 14-59 [facility] Comment on above: Performed By: #### L IPID, CMP #### [facility] [address] [place] [address] Dr. Navi Day Anion gap [Moles/Vol] 15.7 mmol/L Normal [facility] Comment on above: Performed By: #### L IPID, CMP #### [facility] [address] [address] [address] Navi Day AST [Catalytic activity/Vol] 19 U/L Normal 15-37 [facility] Comment on above: Performed By: #### L IPID, CMP #### [facility] [address] [address] [address] Navi Day Bilirubin [Mass/Vol] 0.4 mg/dL Normal 0.2-1.0 [facility] Comment on above: Performed By: #### L IPID, CMP #### [facility] [address] [place] [address] Dr. Navi Day Calcium [Mass/Vol] 9.3 mg/dL Normal 8.5-10.1 [facility] Comment on above: Performed By: #### L IPID, CMP #### [facility] [address] [place] [address] Dr. Navi Day Chloride [Moles/Vol] 100 mmol/L Normal 98-107 [facility] Comment on above: Performed By: #### L IPID, CMP #### [facility] [address] [place] [address] Dr. Navi Day CO2 [Moles/Vol] 28.4 mmol/L Normal 21.0-32.0 [facility] Comment on above: Performed By: #### L IPID, CMP #### [facility] [address] [place] [address] Dr. Navi Day Creatinine [Mass/Vol] 0.84 mg/dL Normal 0.55-1.02 [facility] Comment on above: Performed By: #### L IPID, CMP #### [facility] [address] [place] [address] Dr. Navi Day EGFR-AF MONTENEGRIN >60 Normal >=60 [facility] Comment on above: Performed By: #### L IPID, CMP #### [facility] [address] [place] [address] Dr. Navi Day EGFR-NON AF MONTENEGRIN >60 Normal >=60 [facility] Comment on above: Performed By: #### L IPID, CMP #### [facility] [address] [place] [address] Dr. Navi Day Globulin (S) [Mass/Vol] 4.1 g/dL Normal [facility] Comment on above: Performed By: #### L IPID, CMP #### [facility] [address] [place] [address] Dr. Navi Day Glucose [Mass/Vol] 198 mg/dL Critically high 74-106 [facility] Comment on above: Performed By: #### L IPID, CMP #### [facility] [address] [place] [address] Dr. Navi Day Potassium [Moles/Vol] 4.1 mmol/L Normal 3.5-5.1 [facility] Comment on above: Performed By: #### L IPID, CMP #### [facility] [address] [place] [address] Dr. Navi Day Protein [Mass/Vol] 7.7 g/dL Normal 6.1-8.2 [facility] Comment on above: Performed By: #### L IPID, CMP #### [facility] [address] [place] [address] Dr. Navi Day Sodium [Moles/Vol] 140 mmol/L Normal 136-145 [facility] Comment on above: Performed By: #### L IPID, CMP #### [facility] [address] [place] [address] Dr. Navi Day Urea nitrogen [Mass/Vol] 19.0 mg/dL Critically high 7.0-18.0 [facility] Comment on above: Performed By: #### L IPID, CMP #### [facility] [address] [place] [address] Dr. Navi Day Urea nitrogen/Creatinine [Mass ratio] 22.6 mg/mg Normal [facility] Comment on above: Performed By: #### L IPID, CMP #### [facility] [address] [place] [address] Dr. Navi Day COVID Quick Testingon 2021 Result Negative [facility] Other Quick Fluon 09-06-2021 FLUAV Ab CF (S) [Titer] Negative [facility] Other FLUBV Ab CF (S) [Titer] Negative [facility] Other [facility] DIGITAL SCREEN BILA TERALon 04-04-2020 BI-RADS 1 - Negative, no evidence of malignancy. Normal interval followup in 12 months. OVERALL ASSESSMENT- NEGATIVE A letter of notification will be sent to the patient regarding the results. [facility] HISTORY: Screening. Family history breast carcinoma. Prior [...] skin lesions and linear markers represent scars.) [place], [place] Alan, Mhpn Incoming Radiant Results From [employer] (formerly [employer]) - 04/04/2020 10:31 AM EST HISTORY: Screening. [...] sent to the patient regarding the results. [place] Albuminon 11-02-2019 Albumin [Mass/Vol] 4.5 g/dL 3.5 - 5.2 g/dL [place] Calciumon 11-02-2019 Calcium [Mass/Vol] 10.2 mg/dL 8.6 - 10. 4 mg/dL [place] Comprehensive Metabolic Pane bettie 10-10-2019 Albumin [Mass/Vol] 4.5 g/dL 3.5 - 5.2 g/dL [place] Albumin/Globulin [Mass ratio] NOT REPORTED [place] ALP [Catalytic activity/Vol] 67 U/L 35 - 104 U/L [place] ALT [Catalytic activity/Vol] 23 U/L 5 - 33 U/L [place] Anion gap [Moles/Vol] 7 mmol/L Low 9 - 17 mmol/L [place] AST [Catalytic activity/Vol] 25 U/L <32 [place] Bilirubin Ql (U) 0.49 mg/dL 0.3 - 1.2 mg/dL [place] Bun/Cre Ratio 16 [place] Calcium [Mass/Vol] 11.2 mg/dL High 8.6 - 10. 4 mg/dL [place] Chloride [Moles/Vol] 97 mmol/L Low 98 - 10 7 mmol/L [place] CO2 [Moles/Vol] 30 mmol/L 20 - 31 mmol/L [place] Creatinine [Mass/Vol] 0.74 mg/dL 0.5 - 0.9 mg/dL [place] GFR >60 >60 mL/min [place] GFR Non- >60 >60 mL/min [place] GFR/1.73 sq M predicted among non-blacks MDRD (S/P/Bld) [Vol rate/Area] NOT REPORTED [place] GFR/1.73 sq M predicted among non-blacks MDRD (S/P/Bld) [Vol rate/Area] [place] Comment on above: Average GFR for 60-6 9 years old: 85 mL/min/1.73sq m Chronic Kidney Disease: <60 mL/min/1.73sq m Kidney failure: <15 mL/min/1.73sq m eGFR calculated using average adult body mass. Additional eGFR calculator available at: http://www.[employer]/multiple_crcl_2012.htm Glucose [Mass/Vol] 196 mg/dL High 70 - 99 mg/dL [place] Interpretation and review of laboratory results Abnormal [place] Potassium [Moles/Vol] 4.1 mmol/L 3.7 - 5.3 mmol/L [place] Protein [Mass/Vol] 8.0 g/dL 6.4 - 8.3 g/dL [place] Sodium [Moles/Vol] 134 mmol/L Low 135 - 144 mmol/L [place] Urea nitrogen [Mass/Vol] 12 mg/dL 8 - 23 mg/dL [place] Lipid Panelon 10-10-2019 Cholesterol [Mass/Vol] 192 mg/dL <200 [place] Comment on above: Cholesterol Guidelines: <200 Desirable 200-240 Borderline >240 Undesirable Cholesterol in HDL [Mass/Vol] 67 mg/dL >40 [place] Comment on above: HDL Guidelines: <40 Undesirable 40-59 Borderline >59 Desirable Cholesterol in LDL [Mass/Vol] 101 mg/dL 0 - 130 mg/dL [place] Comment on above: LDL Guidelines: <100 Desirable 100-129 Near to/above Desirable 130-159 Borderline >159 Undesirable Direct (measured) LDL and calculated LDL are not interchangeable tests. Cholesterol in VLDL [Mass/Vol] NOT REPORTED 1 - 30 mg/dL [place] Cholesterol.total/Chol esterol in HDL [Mass ratio] 2.9 {ratio} <5 [place] Triglyceride [Mass/Vol] 122 mg/dL <150 [place] Comment on above: Triglyceride Guidelines: <150 Desirable 150-199 Borderline 200-499 High >499 Very high Based on AHA Guidelines for fasting triglyceride, February 2012. Patient Fasting?on 0 Patient Fasting? yes [place] CBC Auto Differentialon 02-28 Basophils (Bld) [#/Vol] 0.00 10*3/uL [place] Basophils/100 WBC (Bld) 0 % 0 - 2 % [place] Differential Type YES [facility] S[place] Eosinophils (Bld) [#/Vol] 0.30 10*3/uL [place] Eosinophils/100 WBC (Bld) 3 % 0 - 5 % [place] Erythrocyte distribution width (RBC) [Ratio] 13.7 % 12.1 - 15.2 % [place] Hematocrit (Bld) [Volume fraction] 40.1 % 36 - 46 % [place] Hemoglobin (Bld) [Mass/Vol] 13.3 g/dL 12 - 16 g/dL [place] Lymphocytes (Bld) [#/Vol] 2.00 10*3/uL [place] Lymphocytes/100 WBC (Bld) 22 % 15 - 40 % [place] MCH (RBC) [Entitic mass] 27.9 pg 26 - 34 pg [place] MCHC (RBC) [Mass/Vol] 33.2 g/dL 31 - 37 g/dL [place] MCV (RBC) [Entitic vol] 83.9 fL 80 - 100 fL [place] Monocytes (Bld) [#/Vol] 0.70 10*3/uL [place] Monocytes/100 WBC (Bld) 8 % 4 - 8 % [place] Platelet mean volume (Bld) [Entitic vol] NOT REPORTED 6 - 12 fL [place] Platelets (Bld) [#/Vol] NOT REPORTED [place] Platelets (Bld) [#/Vol] 255 10*3/uL [place] RBC (Bld) [#/Vol] 4.78 10*6/uL 4 - 5.2 m/uL [place] RBC morphology finding Nom (Bld) NOT REPORTED [place] Segmented neutrophils/100 WBC (Bld) 67 % 47 - 75 % [place] Segs Absolute 6.00 [place] WBC (Bld) [#/Vol] NOT REPORTED per 100 WBC [place] WBC (Bld) [#/Vol] 9.0 10*3/uL [place] WBC Morphology NOT REPORTED [place] Otheron 03-14-2019 Immature granulocytes (Bld) [#/Vol] NOT REPORTED [place] DIGITAL SCREEN W OR WO C AD BILATERALon 02-16-2019 Benign bilateral mammography. BI-RADS 2 - Benign, no evidence of malignancy. Normal interval followup is recommended in 12 months. OVERALL ASSESSMENT- BENIGN A letter of notification will be sent to the patient regarding the results. [place] EXAM: THIER[facility] DIGITAL SCREEN W OR WO CAD BILATERAL HISTORY: Reason for exam:->screening. COMPARISON: 01/05/2018, 10/14/2016, 10/09/2015. TECHNIQUE: 2D views FINDINGS: Breasts are of scattered fibroglandular composition. Minimal postsurgical scarring is seen in the upper-outer left breast, and this is stable. No developing masses, microcalcifications , or enlarged lymph nodes. [facility] [place] Alan, Mhpn Incoming Radiant Results From [employer] (formerly [employer]) - 02/16/2019 10:14 AM EDT EXAM: THIERNO [...] sent to the patient regarding the results. [facility] [employer] Vital Signs Date Time Vital Sign Value Performing Clinician Facility 06-22-2024 10:24-0500 Diastolic blood pressure 56 mm[Hg] [facility] 06-22-2024 10:24-0500 Heart rate 89 /min Kraig Alford [facility] 06-22-2024 10:24-0500 Systolic blood pressure 131 mm[Hg] Kraig [employer] [facility] Work Phone: [facility] 06-08-2024 10:32-0500 Body height 165.1 cm [facility] 06-08-2024 10:32-0500 Body mass index (BMI) [Ratio] 38.4 kg/m2 [facility] 06-08-2024 10:32-0500 Body temperature 98.1 [degF] [facility] 06-08-2024 10:32-0500 Body weight 104.77 kg [facility] 06-08-2024 10:32-0500 Diastolic blood pressure 78 mm[Hg] [facility] 06-08-2024 10:32-0500 Heart rate 81 /min [facility] 06-08-2024 10:32-0500 Respiratory rate 20 /min [facility] 06-08-2024 10:32-0500 SaO2% (BldA) [Mass fraction] 97 % [facility] 06-08-2024 10:32-0500 Systolic blood pressure 140 mm[Hg] [facility] 06-02-2024 09:00-0500 Diastolic blood pressure 65 mm[Hg] Carlos Aguayo MD Work Phone: [facility] 06-02-2024 09:00-0500 Heart rate 68 /min Carlos Aguayo MD Work Phone: [facility] 06-02-2024 09:00-0500 Respiratory rate 21 /min Carlos Aguayo MD Work Phone: [facility] 06-02-2024 09:00-0500 Systolic blood pressure 146 mm[Hg] Carlos Aguayo MD Work Phone: [facility] 06-02-2024 08:00-0500 SaO2% (BldA) [Mass fraction] 90 % Carlos Aguayo MD Work Phone: [facility] 06-02-2024 07:38-0500 Body temperature 97.59 [degF] Carlos Aguayo MD Work Phone: [facility] 06-02-2024 06:39-0500 Body height 162.6 cm Carlos Aguayo MD Work Phone: [facility] 06-02-2024 06:39-0500 Body mass index (BMI) [Ratio] 39.99 kg/m2 Carlos Aguayo MD Work Phone: [facility] 06-02-2024 06:39-0500 Body weight 105.69 kg Carlos Aguayo MD Work Phone: [facility] 04-11-2024 10:20-0500 Body height 165.1 cm Neftaly Mcmanus DO Work Phone: [facility] 04-11-2024 10:20-0500 Body mass index (BMI) [Ratio] 39.94 kg/m2 Neftaly Mcmanus DO Work Phone: [facility] 04-11-2024 10:20-0500 Body weight 108.86 kg Neftaly Mcmanus DO Work Phone: [facility] 03-20-2024 15:26-0400 Body height 165.1 cm Neftaly Mcmanus DO Work Phone: [facility] 03-20-2024 15:26-0400 Body mass index (BMI) [Ratio] 39.94 kg/m2 Neftaly Mcmanus DO Work Phone: [facility] 03-20-2024 15:26-0400 Body weight 108.86 kg Neftaly Mcmanus DO Work Phone: [facility] 03-09-2024 10:58-0400 Body height 165.1 cm [facility] 03-09-2024 10:58-0400 Body mass index (BMI) [Ratio] 38.2 kg/m2 [facility] 03-09-2024 10:58-0400 Body temperature 98.1 [degF] [facility] 03-09-2024 10:58-0400 Body weight 104.32 kg [facility] 03-09-2024 10:58-0400 Diastolic blood pressure 85 mm[Hg] [facility] 03-09-2024 10:58-0400 Heart rate 92 /min [facility] 03-09-2024 10:58-0400 Respiratory rate 18 /min [facility] 03-09-2024 10:58-0400 SaO2% (BldA) [Mass fraction] 96 % [facility] 03-09-2024 10:58-0400 Systolic blood pressure 161 mm[Hg] [facility] 12-09-2023 11:01-0400 Body height 165.1 cm [facility] 12-09-2023 11:01-0400 Body mass index (BMI) [Ratio] 38.6 kg/m2 [facility] 12-09-2023 11:01-0400 Body temperature 98.2 [degF] [facility] 12-09-2023 11:01-0400 Body weight 105.23 kg [facility] 12-09-2023 11:01-0400 Diastolic blood pressure 70 mm[Hg] [facility] 12-09-2023 11:01-0400 Heart rate 71 /min [facility] 12-09-2023 11:01-0400 Respiratory rate 20 /min [facility] 12-09-2023 11:01-0400 SaO2% (BldA) [Mass fraction] 97 % [facility] 12-09-2023 11:01-0400 Systolic blood pressure 143 mm[Hg] [facility] 09-30-2023 14:31-0400 Body height 165.1 cm [facility] 09-30-2023 14:31-0400 Body mass index (BMI) [Ratio] 39.2 kg/m2 [facility] 09-30-2023 14:31-0400 Body temperature 96.8 [degF] [facility] 09-30-2023 14:31-0400 Body weight 107.04 kg [facility] 09-30-2023 14:31-0400 Diastolic blood pressure 86 mm[Hg] [facility] 09-30-2023 14:31-0400 Heart rate 88 /min [facility] 09-30-2023 14:31-0400 Respiratory rate 20 /min [facility] 09-30-2023 14:31-0400 SaO2% (BldA) [Mass fraction] 97 % [facility] 09-30-2023 14:31-0400 Systolic blood pressure 134 mm[Hg] [facility] 07-13-2023 09:47-0500 Body height 165.1 cm Mary Anne Babb DPM Work Phone: [facility] 07-13-2023 09:47-0500 Body mass index (BMI) [Ratio] 39.94 kg/m2 Mary Anne Babb DPM Work Phone: [facility] 07-13-2023 09:47-0500 Body weight 108.86 kg Mary Anne Babb DPM Work Phone: [facility] 07-13-2023 09:47-0500 Diastolic blood pressure 73 mm[Hg] Chrislulúer Bohach DPM Work Phone: [facility] 07-13-2023 09:47-0500 Heart rate 72 /min Christopher Bohach DPM Work Phone: [facility] 07-13-2023 09:47-0500 Respiratory rate 16 /min Chrislulúer Bohach DPM Work Phone: [facility] 07-13-2023 09:47-0500 Systolic blood pressure 140 mm[Hg] Chrisopher Bohach DPM Work Phone: [facility] 09-07-2022 10:00-0400 Body height 165.1 cm German Miranda Other [employer] Other 09-07-2022 10:00-0400 Body mass index (BMI) [Ratio] 38.27 kg/m2 Markleroy Miranda Other [employer] Other 09-07-2022 10:00-0400 Body temperature 96.9 [degF] German Miranda Other [employer] Other 09-07-2022 10:00-0400 Body weight 104.33 kg German Miranda Other [employer] Other 09-07-2022 10:00-0400 Diastolic blood pressure 82 mm[Hg] German Miranda Other [employer] Other 09-07-2022 10:00-0400 Respiratory rate 20 /min German Miranda Other [employer] Other 09-07-2022 10:00-0400 SaO2% (BldA) [Mass fraction] 97 % German Miranda Other [facility] Other 09-07-2022 10:00-0400 Systolic blood pressure 132 mm[Hg] German Miranda Other [employer] Other 05-05-2022 12:00-0500 Body height 165.1 cm Charline Wilburn Other [employer] Other 05-05-2022 12:00-0500 Body mass index (BMI) [Ratio] 38.27 kg/m2 Charline Wilburn Other [employer] Other 05-05-2022 12:00-0500 Body temperature 98 [degF] Charline Wilburn Other [employer] Other 05-05-2022 12:00-0500 Body weight 104.33 kg Charline Wilburn Other [employer] Other 05-05-2022 12:00-0500 Respiratory rate 18 /min Charline Wilburn Other [employer] Other 05-05-2022 12:00-0500 SaO2% (BldA) [Mass fraction] 97 % Charline Wilburn Other [employer] Other 09-28-2021 12:05-0400 Body height 165.1 cm Anais Farley Other [employer] Other 09-28-2021 12:05-0400 Body mass index (BMI) [Ratio] 36.94 kg/m2 Anais Farley Other [employer] Other 09-28-2021 12:05-0400 Body temperature 98.8 [degF] Anais Farley Other [employer] Other 09-28-2021 12:05-0400 Body weight 100.7 kg Anais Farley Other [employer] Other 09-28-2021 12:05-0400 Respiratory rate 18 /min Anais Farley Other [employer] Other 09-28-2021 12:05-0400 SaO2% (BldA) [Mass fraction] 96 % Anais Farley Other [employer] Other 09-06-2021 11:30-0400 Body height 165.1 cm Charline Cosmo Other [employer] Other 09-06-2021 11:30-0400 Body mass index (BMI) [Ratio] 37.6 kg/m2 Charline Cosmo Other [employer] Other 09-06-2021 11:30-0400 Body temperature 98.8 [degF] Charline Cosmo Other [employer] Other 09-06-2021 11:30-0400 Body weight 102.51 kg Charline Cosmo Other [employer] Other 09-06-2021 11:30-0400 SaO2% (BldA) [Mass fraction] 98 % Charline Cosmo Other [employer] Other 08-12-2021 10:45-0400 Body height 165.1 cm German Miranda Other [employer] Other 08-12-2021 10:45-0400 Body mass index (BMI) [Ratio] 37.94 kg/m2 German Miranda Other [employer] Other 08-12-2021 10:45-0400 Body temperature 97.2 [degF] German Miranda Other [employer] Other 08-12-2021 10:45-0400 Body weight 103.42 kg German Miranda Other [employer] Other 08-12-2021 10:45-0400 Diastolic blood pressure 84 mm[Hg] German Miranda Other [employer] Other 08-12-2021 10:45-0400 Respiratory rate 20 /min German Miranda Other [employer] Other 08-12-2021 10:45-0400 SaO2% (BldA) [Mass fraction] 100 % German Miranda Other [employer] Other 08-12-2021 10:45-0400 Systolic blood pressure 168 mm[Hg] German Miranda Other [employer] Other Encounters Encounter Date Encounter Type Care Provider Facility Start: 06-22-2024 End: 06-24-2024 ambulatory KRAIG ALFORD [facility] Start: 06-22-2024 End: 06-24-2024 Subsequent hospital visit by physician Kraig Alford DO Work Phone: [facility] Non-Invasive Cardiology Comment on above: Chest pain, unspecif ied type; Shortness of breath Arrived Start: 06-08-2024 End: 06-08-2024 ambulatory [facility] Work Phone: Start: 06-08-2024 End: 06-08-2024 [facility] encounter [facility] Work Phone: Start: 06-02-2024 End: 06-04-2024 [facility] Start: 06-02-2024 End: 06-04-2024 Subsequent hospital visit by physician Carlos Aguayo MD Work Phone: [facility] Non-Invasive Cardiology Comment on above: Sinus bradycardia; Sinus pause Start: 06-02-2024 End: 06-02-2024 [facility] Start: 06-02-2024 End: 06-02-2024 Subsequent hospital visit by physician Carlos Aguayo MD Work Phone: [facility] Comment on above: Sinus bradycardia (P rimary Dx); Sinus pause Start: 05-22-2024 End: 05-24-2024 [facility] Start: 05-22-2024 End: 05-24-2024 Subsequent hospital visit by physician Suzanne Douglas MD Work Phone: [facility] Mammography Comment on above: Encounter for screen ing mammogram for malignant neoplasm of breast Start: 05-11-2024 End: 05-11-2024 [facility] Start: 05-11-2024 [facility] Start: 05-11-2024 End: 05-11-2024 Patient encounter status Suzanne Douglas MD Work Phone: [facility] Start: 05-11-2024 End: 05-11-2024 Subsequent hospital visit by physician Suzanne Douglas MD Work Phone: [facility] Comment on above: Pre-op testing [...] GOMEZ CLIFTON Start: 03-09-2024 End: 03-09-2024 ambulatory [facility] Work Phone: Start: 03-09-2024 End: 03-09-2024 Patient encounter procedure [facility] Work Phone: Start: 12-09-2023 End: 12-09-2023 ambulatory [facility] Work Phone: Start: 12-09-2023 End: 12-09-2023 Patient encounter procedure [facility] Work Phone: Start: 10-04-2023 End: 10-04-[address] [facility] Start: 09-30-2023 End: 09-30-2023 Patient encounter procedure [facility] Work Phone: Start: 07-13-2023 Bamboo flowsheet Mary Anne Babb DPM Work Phone: [facility] Start: 07-13-2023 Bamboo flowsheet Mary Anne Babb DPM Work Phone: [facility] Start: 07-13-2023 End: 07-13-2023 Office outpatient visit 15 minutes Mary Anne Babb DPM Work Phone: [facility] Comment on above: Diabetic polyneuropa thy associated with type 2 diabetes mellitus ([facility]/HCC) (Primary Dx); Hammer toes of both feet Start: 07-13-2023 End: 07-13-2023 ambulatory MARY ANNE BABB Not Available Start: 07-05-2023 End: 07-05-2023 ambulatory Freddy KRAUS Facility:[facility] Start: 07-05-2023 End: 07-05-2023 Patient encounter procedure Freddy KRAUS [facility] Start: 09-07-2022 End: 09-07-2022 ambulatory German Miranda Other [facility] Other Start: 09-07-2022 Office outpatient vi sit 25 minutes Kamleroy Miranda [facility] Start: 07-08-2022 End: 07-08-2022 Subsequent hospital visit by physician Kinga Faustin PT [facility] Physical Therapy Start: 07-08-2022 End: 07-08-[address] CHIKI MONIQUE Facility: Start: 05-19-2022 End: 05-21-2022 Subsequent hospital visit by physician [facility] Mammography Room [facility] Mammography Comment on above: Encounter for screen ing mammogram for malignant neoplasm of breast Start: 05-05-2022 End: 05-05-2022 ambulatory Charline Wilburn Other [employer] Other Start: 05-05-2022 Office outpatient vi sit 25 minutes Charline Wilburn [facility] Start: 04-13-2022 End: 04-13-2022 Patient encounter procedure Freddy KRAUS [facility] Start: 09-28-2021 End: 09-28-2021 ambulatory Anais Tamayoler Other [employer] Other Start: 09-28-2021 Office outpatient vi sit 15 minutes Anais Farley [facility] Start: 09-27-2021 End: 09-28-[address] SUZANNE DOUGLAS Facility: Start: 09-25-2021 End: 09-25-2021 ambulatory Mary Anne Chan Other [employer] Other Start: 09-25-2021 Telephone encounter Isai Chan [facility] Start: 09-06-2021 End: 09-06-2021 ambulatory Charline Wilburn Other [employer] Other Start: 09-06-2021 Office outpatient vi sit 15 minutes Charline Cosmo [facility] Start: 08-12-2021 End: 08-12-2021 ambulatory German Miranda Other [employer] Other Start: 08-12-2021 Office outpatient vi sit 15 minutes Kamal Chaban [facility] Start: 04-03-2020 End: 04-05-2020 Subsequent hospital visit by physician [facility] Mammography Room [facility] Mammography Comment on above: Visit for [...] Subsequent hospital visit by physician Suzanne Douglas [facility] Laboratory Comment on above: Metallic taste; Disturbance of smell and taste Start: 02-15-2019 End: 02-17-2019 Subsequent hospital visit by physician [facility] Mammography Room [facility] Laboratory Comment on above: Encounter for screen ing mammogram for breast cancer Start: 05-18-2018 Patient encounter procedure PHYSICIA N NO [facility] Procedures Date Procedure Procedure Detail [...] [place] Start: 06-19-[address] [facility] Room Start: 05-08-2013 Cystoscopy [place] [...] 06-02-2034 Screening for malignant neoplasm of colon [employer] Start: 06-06-2025 Glaucoma screening Diabetic retinal exam [facility] Start: 06-02-2025 GFR test (Diabetes, CKD 3-4, OR last GFR 15-59) GFR test (Diabetes, CKD 3-4, OR last GFR 15-59) [facility] Start: 05-22-2025 Screening for malignant neoplasm of breast Breast cancer screen [facility] Start: 04-13-2025 Annual Wellness Visit (Medicare) Annual Wellness Visit (Medicare) [facility] Start: 04-12-2025 Depression Screen Depression Screen [facility] Start: 10-17-2024 End: 10-17-2024 Patient encounter procedure 10/17/2024 9:30 AM EDT Office Visit [facility] [employer] [address] [place] [id number] Kraig Alford DO [address] [place] [address] 4 month f/u [facility] [employer] Comment on above: 4 month f/u Start: 10-06-2024 Diabetic foot examination Diabetic foot exam [facility] [facility] Start: 10-03-2024 GFR test (Diabetes, CKD 3-4, OR last GFR 15-59) GFR test (Diabetes, CKD 3-4, OR last GFR 15-59) [facility] Start: 10-03-2024 Lipid panel [facility]ids [facility] Start: 10-03-2024 Urine screening for protein Diabetic Alb to Cr ratio (uACR) test [facility] Start: 07-13-2024 Hemoglobin A1c measurement A1C test (Diabetic or Prediabetic) [facility] Start: 07-13-2024 End: 07-13-2024 Patient encounter procedure 07/13/2024 9:00 AM EST Office Visit [facility] [address] [place] [address] Suzanne Douglas MD [address] [place] [address] 3 months (around 07/13/2024) for DM, HTN, Hyperlipidemia [facility] Comment on above: 3 months (around 07/13/2024) for DM, HTN, Hyperlipidemia Start: 06-02-2024 End: 06-02-2025 Extended cardiac holter monitor (3 days-14 day) [facility] Comment on above: Expected: 06/02/2024, Expires: 1 Occurrences starti ng 06/02/2024 until 06/02/2024 Start: 06-02-2024 End: 06-02-2024 Admission to same day surgery center 06/02/2024 7:30 AM EST - 06/02/2024 7:59 AM EST Surgery [facility] [address] [id number] Carlos Aguayo MD [address] [id number] COLON[facility]COPY [facility] Comment on above: COLONOSCOPY Start: 06-02-2024 Subsequent hospital visit by physician 06/02/2024 7:30 AM EST Hospital Encounter [facility] [address] [place] [address] Carlos Aguayo MD [address] [place] [address] [facility] Start: 06-02-2024 End: 06-02-2024 Colonoscopy flx dx w/collj spec when pfrmd [facility] Start: 05-20-2024 Screening for malignant neoplasm of breast [facility] Start: 05-19-2024 Screening for malignant neoplasm of breast Breast cancer screen [facility] Start: 04-11-2024 End: 04-11-2024 Patient encounter procedure 04/11/2024 10:00 AM EST Office Visit [facility] [address] [place] [address] Neftaly Mcmanus W, DO [address] [place] [address] [facility] [place] Start: 03-20-2024 End: 03-20-2024 Patient encounter procedure 03/20/2024 3:30 PM EDT Office Visit [facility] [address] [place] [address] Neftaly Mcmanus, DO [address] [place] [address] Arrived GREG PALOMINOUSKY Comment on above: Arrived Start: 01-30-2024 COVID-19 Vaccine () COVID-19 Vaccine () [facility] Start: 01-30-2024 Influenza vaccination Influenza Vaccine (#1) [facility] Start: 07-13-2023 End: 07-13-2023 Patient encounter procedure 07/13/2023 9:45 AM EST Office Visit [facility] [address] [place] [id number] Mary Anne Babb, DPM [address] [place] [address] Arrived [facility] Comment on above: Arrived Start: 07-01-2023 Depression Screen [facility] Start: 06-19-2023 Colon cancer screen colonoscopy Colon cancer screen colonoscopy [facility] Start: 06-19-2023 Screening for malignant [facility]oplasm of [facility] Start: 06-02-2023 Glaucoma screening Diabetic retinal exam [facility] Start: 04-14-2023 Diabetic foot examination Diabetic foot exam [facility] Start: 04-14-2023 Hemoglobin A1c measurement A1C test (Diabetic or Prediabetic) [facility] Start: 04-12-2023 Cervical cancer screen Cervical cancer screen [place], [place] Start: 04-12-2023 Screening for malignant neoplasm of cervix Cervical cancer screen [place], [place] Start: 01-14-2023 Depression Screen Depression Screen [facility] Start: 10-13-2022 End: 10-13-2022 Patient encounter procedure 10/13/2022 Office Visit Family Medicine Suzanne Douglas MD [address] [id number] [facility] Start: 06-30-2022 Annual Wellness Visit (AWV) Annual Wellness Visit (AWV) [facility] Start: 06-10-2022 Diabetic retinal exam Diabetic retinal exam [facility] Start: 04-08-2022 Pneumococcal 65+ years Vaccine (2 of 2 - PCV) Pneumococcal 65+ years Vaccine (2 of 2 - PCV) [facility] Start: 04-08-2022 Pneumococcal Vaccine: 65+ Years (2 - PCV) Pneumococcal Vaccine: 65+ Years (2 - PCV) [facility] Start: 04-08-2022 Pneumococcal Vaccine: 65+ Years (2 of 2 - PCV) Pneumococcal Vaccine: 65+ Years (2 of 2 - PCV) [facility] Start: 04-08-2022 Urine screening for protein [facility] Start: 04-03-2022 Screening for malignant neoplasm of breast Breast cancer screen [place], [place] Start: 10-03-2021 GFR test (Diabetes, CKD 3-4, OR last GFR 15-59) GFR test (Diabetes, CKD 3-4, OR last GFR 15-59) [facility] Start: 10-03-2021 Lipid panel Lipids [facility] Start: 07-25-2021 COVID-19 Vaccine (3 - Booster for Patricia series) COVID-19 Vaccine (3 - Booster for Patricia series) [facility] Start: 02-15-2021 Breast cancer screen Breast cancer screen [place], [place] Start: 02-15-2021 Screening for malignant neoplasm of breast Breast cancer screen [place] Start: 10-09-2020 Creatinine measurement Creatinine monitoring [facility] [place] Start: 10-09-2020 HbA1c (Bld) [Mass fraction] A1C test (Diabetic or Prediabetic) [place] Start: 10-09-2020 Lipid panel Lipid screen [place] Start: 10-09-2020 Potassium monitoring Potassium monitoring [place] Start: 06-30-2020 Diabetic retinal exam Diabetic retinal exam [place] Start: 04-11-2020 Diabetic microalbuminuria test Diabetic microalbuminuria test [place] Start: 04-11-2020 HbA1c (Bld) [Mass fraction] A1C test (Diabetic or Prediabetic) [place] Start: 04-10-2020 End: 04-10-2020 Office Visit 04/10/2020 Office Visit Family Suzanne Mendoza MD [address] [place] [address] [facility] Start: 01-30-2020 Influenza vaccination Flu vaccine (#1) [place] Start: 01-06-2020 Breast cancer screen Breast cancer screen [place] Start: 10-05-2019 [object Object] Diabetic foot exam [place] Start: 10-05-2019 A1C test (Diabetic or Prediabetic) A1C test (Diabetic or Prediabetic) [place] Start: 10-05-2019 Diabetic foot examination Diabetic foot exam [place] Start: 06-03-2019 Diabetic retinal exam Diabetic retinal exam [place] Start: 04-12-2019 Creatinine measurement Creatinine monitoring [facility] Start: 04-12-2019 Creatinine monitoring Creatinine monitoring [place] Start: 04-12-2019 Lipid panel Lipid screen [place] Start: 04-12-2019 Lipid screen Lipid [place] Start: 04-12-2019 Potassium monitoring Potassium monitoring [place] Start: 04-11-2019 End: 04-11-2019 Office Visit 04/11/2019 Office Visit Family Suzanne Mendoza MD [address] [place] [address] [facility] Start: 01-29-2019 Influenza vaccination Flu vaccine (#1) [place] Start: 01-05-2019 Diabetic microalbuminuria test Diabetic microalbuminuria test [place] Start: 12-29-2016 Screening for malignant neoplasm of colon [facility] Start: 2016 Respiratory Syncytial Virus (RSV) or age 60 yrs+ (1 - Risk 60-74 years 1-dose series) Respiratory Syncytial Virus (RSV) or age 60 yrs+ (1 - Risk 60-74 years 1-dose series) [facility] Start: 02-12-2006 Shingles Vaccine (1 of 2) Shingles Vaccine (1 of 2) [facility] Start: 02-12-2001 Screening for malignant neoplasm of colon [facility] Start: 02-12-1975 DTaP/Tdap/Td vaccine (1 - Tdap) DTaP/Tdap/Td vaccine (1 - Tdap) [facility] Start: 02-12-1974 Hepatitis C screening Hepatitis C screen [facility] Start: 02-12-1971 HIV screen HIV screen [place] Start: 02-12-1971 HIV screening HIV screen [place] Start: 02-12-1962 Pneumococcal 0-64 years Vaccine (1 of 1 - PPSV23) Pneumococcal 0-64 years Vaccine (1 of 1 - PPSV23) [place] Start: 1956 Hepatitis C screen Hepatitis C screen [place] Start: 1956 Hepatitis C screening Hepatitis C screen [place] Start: 1955 Screening for malignant neoplasm of colon [facility] End: 02-15-2019 Cytology, Non-Director [employer] Cytology, Non-[facility] [employer] Lab Routine Once for 1 Occurrences starting 02/15/2019 until 02/15/2019 [place] Comment on above: Once for 1 Occurrences starting 02/16/20 19 until 02/15/2019 Cytology, Non-Director [employer] Cytology, Non- [facility] [employer] [facility] Lab Routine 02/15/2019 1:54 PM EDT [place] End: 06-22-2024 Echo (TTE) complete (PRN contrast/bubble/strain/3D ) [facility] Comment on above: 1 Occurrences starting 06/22/2024 until 06/22/2024 EKG 12 Lead EKG 12 Lead ECG Routine Pre-op testing 05/11/2024 1:52 PM EST [facility] EKG 12 Lead EKG 12 Lead ECG STAT 06/02/2024 7:59 AM EST [facility] End: 03-14-2019 Heavy Metals Screen, Urine Heavy Metals Screen, Urine Lab Routine Once for 1 Occurrences starting 03/14/2019 until 03/14/2019 [facility] [place] Comment on above: Once for 1 Occurrences starting 03/14/20 19 until 03/14/2019 Heavy Metals Screen, Urine Heavy Metals Screen, Urine Lab Routine 03/14/2019 7:38 AM EDT [facility] [place] IgA [Mass/volume] in Serum or Plasma [facility] IgE [Units/volume] i n Serum or Plasma [facility] IgG [Mass/volume] in Serum or Plasma [facility] IgM [Mass/volume] in Serum or Plasma [facility] End: 11-02-2019 PTH, Intact PTH, Intact Lab Routine Hypercalcemia 1 Occurrences starting 11/02/2019 until 11/02/2019 [facility] [place] Comment on above: 1 Occurrences starting 11/02/2019 until 11/02/2019 PTH, Intact PTH, Intact Lab Routine Hypercalcemia 11/02/2019 5:17 PM EDT [facility] [place] Serologic test for Aspergillus [facility] Immunizations Immunization Date Immunization Notes Care Provider [facility] 04-12-2024 influenza, injectabl e, madin maricruz canine kidney, preservative free Suzanne Douglas MD Work Phone: [facility] 04-06-2023 Influenza, injectabl e, Madin Maricruz Canine Kidney, preservative free, quadrivalent Mary Anne Babb DPM Work Phone: [facility] 04-06-2023 influenza virus vaccine, unspecified formulation Neftaly Mcmanus DO Work Phone: [facility] 04-14-2022 Influenza, FLUAD, (a ge 65 y+), Adjuvanted, 0.5mL [facility] Work Phone: 05-30-2021 COVID-19 Vaccine Pfizer - Documentation Purposes Only German Miranda Other [facility] Other 04-08-2021 Influenza, FLUAD, (a ge 65 y+), Adjuvanted, 0.5mL [facility] Work Phone: 04-08-2021 pneumococcal polysaccharide vaccine, [address] [facility] Work Phone: 08-09-2020 COVID-19 Vaccine Patricia - Documentation Purposes Only German Miranda Other [facility] 04-10-2020 influenza, injectabl e, quadrivalent, preservative free [facility] 04-11-2019 influenza virus vaccine, unspecified formulation [facility] 04-11-2019 influenza, high dose seasonal, preservative-free Kamal Chaban Other [facility] Other 04-11-2019 influenza, injectabl e, quadrivalent, preservative free [place] 04-12-2018 influenza virus vaccine, unspecified formulation [facility] 04-12-2018 influenza, high dose seasonal, preservative-free Kamal Chaban Other [facility] Other 04-12-2018 influenza, injectabl e, quadrivalent, preservative free [facility] Payers Date Payer Category Payer Private Health Insurance [id number] 2022 Medicare [id number] 2017 Unknown UMR NRECA UMR xx xxxxxxxxxx 2017-[place] [address] [place] [address] xxxxxxxxxxxx [id number] 1959 Medicare [id number] 1959 Private Health Insurance [id number] 1959 Unknown [id number] 1956 Unknown [id number] 2.16.840.1.167976.3.579.2 .593 1956 Unknown [id number] 2.16.840.1.062309.3.579.2 .593 1956 Unknown [id number] 2.16.840.1.570153.3.579.2 .1259 1956 Unknown [id number] 2.16.840.1.799689.3.579.2 .1259 1956 Unknown [id number] 2.16.840.1.441202.3.579.2 .1259 1956 Unknown [id number] 2.16.840.1.504226.3.579.2 .727 1956 Unknown [id number] 2.16.840.1.348177.3.579.2 .174 1956 Unknown [id number] 2.16.840.1.921215.3.579.2 .174 1956 Unknown [id number] 2.16.840.1.031101.3.579.2 .174 1956 Unknown [id number] 2.16.840.1.501586.3.579.2 .174 1956 Unknown [id number] 2.16.840.1.781363.3.579.2 .174 1956 Unknown [id number] 2.16.840.1.821375.3.579.2 .174 1956 Unknown [id number] 2.16.840.1.646692.3.579.2 .174 1956 Unknown [id number] 2.16.840.1.779247.3.579.2 .174 1956 Unknown [id number] 2.16.840.1.512063.3.579.2 .174 1956 Unknown [id number] 2.16.840.1.565634.3.579.2 .174 Self-pay Self Pay [id number] Social History Date Type Detail Facility Start: 03-14-2019 End: 01-10-2024 Tobacco smoking status ALIS Never smoker [facility] Start: 03-14-2019 End: 06-02-2024 Alcohol intake No [facility] Start: 1955 Sex Assigned At Not on file [place] Start: 10-10-2019 End: 06-05-2024 Alcohol intake Current non-drinker of alcohol (finding) [place], [place] Exposure to SARS-CoV-2 (event) Unable to assess [place] Start: 10-10-2019 End: 01-10-2024 Tobacco use and exposure Never used [place] Tobacco smoking status Never [facility] Start: 04-14-2022 History SDOH Financial 5 [facility] Work Phone: Start: 04-14-2022 End: 07-01-2022 History SDOH Food Worry 1 [facility] Work Phone: Start: 07-01-2022 History SDOH Financial 4 [facility] Work Phone: Start: 07-01-2022 History SDOH Transport Non-Med 2 [facility] Work Phone: Tobacco smoking status NHIS Tobacco smoking consumption unknown [facility] Start: 07-13-2023 End: 04-11-2024 Alcohol intake Lifetime non-drinker (finding) [facility] Start: 07-13-2023 End: 06-02-2024 History of Social function [facility] Start: 1955 Sex Assigned At Female F [facility] How often to you hav e a drink containing alcohol? Never [facility] (I/We) worried whether (my/our) food would run out before (I/we) got money to buy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
== END 2024-07-11 19:47 | disposition home or self-care (01) ==
LOC: SLEEP 19:46
PROVIDERS: PCP Internal Medicine; Visit Provider Internal Medicine
DX: G47.33 Obstructive sleep apnea (adult) (pediatric) (principal)
CPT/HCPCS: 95811

== ENCOUNTER 2024-10-05 13:01 | Outpatient (OUT) | payer MEDICARE, SELFPAY ==
--- NOTE | 2024-10-05 13:42 | CT_ITS ---
The [address] [address] Patient Name: TULIO HARGROVE MRN: [id number] date: 1955 Sex: F Assigned Patient Location: CT Current Patient Location: CT Accession/Order Number: [id number] Exam Date: 10/05/2024 15:08 Report Date: 10/05/2024 15:10 At the request of: SUZANNE GARCIA MD Procedure: CT abdomen pelvis wo con CT ABDOMEN AND PELVIS WITHOUT INTRAVENOUS CONTRAST: CLINICAL HISTORY: Left Upper Quadrant Pain COMPARISON: CT chest 07/08/2022 TECHNIQUE: Spiral images were obtained through the abdomen and pelvis without intravenous contrast. This CT exam was performed using one or more following dose reduction techniques: Automated exposure control, adjustment of the mA and/or kV according to patient size, or use of iterative reconstruction technique. FINDINGS: Lung Bases: [Mild bibasilar scarring.] Organs:The dome of the liver is excluded from today's study. Liver and splenic granulomas. Gallbladder has been removed. Pancreas and adrenal glands appear unremarkable. Kidneys demonstrate no stone or hydronephrosis. Small cyst inferior pole left kidney. Abdominal aorta appears normal in caliber.[ GI: Stomach is grossly unremarkable. Small bowel appears nondilated. Appendix is normal. No acute colonic abnormality.[ Pelvis:[Urinary bladder is grossly unremarkable. Uterus is atrophic. No adnexal mass.] Peritoneum/Retroperitoneum:No free air or free fluid or lymphadenopathy.[Subtle haziness involving the mesentery unchanged from the prior study. Abd wall/Bones:Abdominal wall demonstrate no acute findings. Osseous structures demonstrate degenerative change.[ CT/CT abdomen pelvis wo con IMPRESSION: 1. No acute process. 2. Stable haziness involving the mesentery. Given the two-year stability, a benign process is favored. Impression dictated by: John Luciano Jr., D.O. 10/05/2024 3:10 PM Dictation Location: [facility] Electronically authenticated by: [id number] Y Date: 10/05/2024 15:10
== END 2024-10-05 13:02 | disposition home or self-care (01) ==
LOC: CT 13:02
PROVIDERS: PCP Family Medicine; Visit Provider Family Medicine
DX: R10.12 Left upper quadrant pain (principal)
CPT/HCPCS: 74176

== ENCOUNTER 2024-11-02 07:44 | Outpatient (OUT) | payer MEDICARE, SELFPAY ==
--- OUTSIDE RECORDS SUMMARY | 2024-08-24 10:08 | XMS_ITS ---
Author Organization [facility] [place] Address [address] [place] [address] Care Team Providers Care Erco Machine Operator Name Role Phone Lizabeth Douglas MD Primary Care Provider Angelica Blaise Rodriguez Unavailable [phone] REASON FOR VISIT Appointment-FPG Transfer Encounters Encounter Location Date Provider Diagnosis Pulmonary Medicine [facility] [address] [place] [address] 08/24/2024 Blaise Damian Plan Of Treatment Next Appt Details Provider Name:Blaise Lassiter, 11/15/2024 10:00:00 AM, [address] [place], [address], Progress Notes * Kathryn HARGROVE ADOB:1954 (69 yo F)Acc No.[id number]:08/24/2024 Patient: Patricia STACYCROW Kathryn Clancy :1955 A ge:69 Y S ex:Female Address:[address] [place], [address] * true * Date: Generated for Printi ng/Faxing/eTransmitting on: 0 11/02/2024 07:46 AM EDT
--- OUTSIDE RECORDS SUMMARY | 2024-09-27 06:30 | XMS_ITS ---
Author Organization [facility] in [place] Address [address] [place] [address] Care Team Providers Care Patient Relations Coordinator Name Role Phone Lizabeth Douglas MD Primary Care Provider Angelica santos Blaise Lassiter Unavailable [phone] Allergies Allergen (clinical drug ingredient) Drug/Non Drug Allergy documented on EMR Reaction Allergy Type Onset Date Status montelukast Montelukast Rash, Hives Drug Allergy A ctive REASON FOR VISIT F/I-DAO-YDNUWM F2F (FPG) Medications Medication SIG (Take, Route, Frequency, Duration) Notes Start Date End Date Status Meloxicam 15 MG Oral for 90 Days Active Glimepiride 4 MG Oral for 90 Days Active hydroCHLOROthiazide 25 MG Oral for 90 Days Active Lisinopril 10 MG 1 tablet Orally Once a day for 90 days Active Lovastatin 40 MG Oral for 90 Days Active Vitamin D 25 MCG (1000 UT) 1 tablet Oral ly Once a day Active Vitamin C 500 MG as directed Orally Active Fish Oil 1000 MG 1 capsule Orally Three times a day Active Cinnamon 500 MG as directed Orally Active Esomeprazole Magnesium 40 MG TAKE 1 CAPS ULE BY MOUTH EVERY EVENING FOR 90 DAYS Oral for 90 Days Active Albuterol Sulfate HFA 108 (9 0 Base) MCG/ACT 2 puffs as needed Inhalation every 4 hrs Active Glucosamine Chond Cmp Advanc ed - as directed Orally Active metFORMIN HCl ER 500 MG Oral for 90 Days Active Metoprolol Succinate ER 25 MG Oral for 90 Days Active Social History Tobacco Use: Social History Observation Description Date Details (start date - stop date) Never Smoker NA - NA Tobacco Control (Standard) Question Answer Notes Tobacco use: Nonsmoker Problems Problem Type SNOMED Code ICD Code Onset Dates Problem Status W/U Status Risk Notes Problem Increased immunoglobulin (190486481) Elevated IgE level (R76.8) Active confirmed Problem Abnormal ANCA test (R76.8) Active confirmed Problem Allergic rhinitis (49014254) Allergic rhinitis (J30.9) Active confirmed Problem Diabetes mellitus type 2 (disorder) (27547807) DM2 (diabetes mellitus, type 2) (E11.9) Active confirmed Problem Laryngopharyngeal reflux (051504997) LPRD (laryngopharyng eal reflux disease) (K21.9) Active confirmed Problem Peripheral eosinophilia (D72.19) Active confirmed Problem Obstructive sleep apnea syndrome (82844233) LINDSAY (obstructive sleep apnea) (G47.33) Active confirmed Vital Signs Temperature 97.1 degrees Fahrenheit 09/28/19 25 Blood pressure systolic 163 mm Hg 09/28/19 25 Blood pressure diastolic 81 mm Hg 025 Heart Rate 64 /min 09/27/2024 Respiratory Rate 18 /min 09/27/2024 Height 64.0 in 09/27/2024 Weight 239.4 lbs 09/27/2024 BMI 41.09 kg/m2 09/27/2024 Oximetry 98 % 09/27/2024 Encounters Encounter Location Date Provider Diagnosis Pulmonary Medicine [address] [address] 09/27/2024 Blaise Maikol LINDSAY (obstructive sle ep apnea) G47.33 ; Moderate persistent asthma, uncomplicated J45.40 ; Allergic rhinitis J30.9 ; Abnormal ANCA test R76.8 ; Peripheral eosinophilia D72.19 and LPRD (laryngopharyngeal reflux disease) K21.9 Assessments Encounter Date Diagnosis (ICD Code) Assessment Notes Treatment Notes Treatment Clinical Notes Section Notes 09/27/2024 LINDSAY (obstructive sleep apnea) (ICD-10 - G47.33) Lmzt-yv-zopl encounter performed with the patient to document continued need for PAP therapy. -Current DME: [facility] -PSG 07/03/2024 ; Initial AHI: 21 (3% criteria), 18.6 (4% criteria) -PAP titration: 07/11/2024 BiPAP @ 20/79mkU2Z -Compliance was reviewed from 08/21/2024 - 09/19/2024 -Total days used: (100%) -Total of all days >4 hours of use: (100%) -Current model, mode, & set pressure: AirCurve 10 VAuto BiPAP / -Residual AHI: 1.3 -Air leak (median): 8.1L/min -Mask/harness fitting: Mild leak on sides -Sleep quality: Improved with BiPAP -Daytime hypersomnolence: Not falling asleep during the day now, has more energy -Recommendations: Patient has superb compliance and resolution of LINDSAY with BiPAP use. She is having a good subjective response. Only concern is a mild air leak - she is getting a new mask which should hopefully fix the issue. No issues otherwise with pressures. -The patient was reminded to continue to wear the PAP @ bedtime and with any naps. -This cqgg-ad-nfzk visit comes with my authorization that the patient's DME may request to renew, reorder, and/or replace tubing, supplies, mask, and/or PAP device (if applicable). 09/27/2024 Moderate persistent asthma, uncomplicated (ICD-10 - J45.40) Prior treatments (all ineffective): Dulera, Symbicort, Advair, Arnuity Patient was being treated for asthma with chronic cough. However, PFT 06/28/2024 is normal, without evidence of obstruction in spirometry. She denies any dyspnea and wheezing. Today, she admits that Flonase improved the cough more than anything else. Since starting BiPAP, her reflux symptoms have resolved. Will focus on treating allergic rhinitis/PND at this time opposed to asthma. If that treatment does not help, may need to consider either referral to senior ux designer for allergy testing or a biologic (e.g. Dupixent, Fasenra). 09/27/2024 Allergic rhinitis (ICD-10 - J30.9) Patient admits Flonase helped more than any other treatment. She does not take it on a regular basis. Recommended nasal regimen (wrote it out for her): AM -Saline rinse -Flonase 2 squirts each nostril -Astapro 1 squirt each nostril PM -Saline rinse -Astapro 1 squirt each nostril Will see how patient does with this. If no improvement, consider biologic or referral to senior ux designer for allergy testing - she states she previously was on allergy immunotherapy. 09/27/2024 Abnormal ANCA test (ICD-10 - R76.8) 06/09/2024: Atypical pANCA 1:640 with MPO >8. These are not associated with any known pulmonary disease at this time. They can be seen in primary sclerosing cholangitis, autoimmune hepatitis, and ulcerative colitis. Patient has some vague abdominal symptoms - she is going to discuss these results with her PCP. 09/27/2024 Peripheral eosinophilia (ICD-10 - D72.19) Eosinophils: -06/09/2024: 300 -03/09/2019: 300 -01/14/2019: 300 Mild elevation in eosinophils. Associated with allergies? Potential biologic candidate in the future? 09/27/2024 LPRD (laryngopharyngea l reflux disease) (ICD-10 - K21.9) Symptoms of LPR/GERD resolved with LINDSAY use, but cough remained. She stopped PPI without any worsening cough or recurrence of reflux symptoms. Plan Of Treatment Treatment Notes Assessment Notes LINDSAY (obstructive sleep apnea) Oisu-hl-mvrc encounter performed with the patient to document continued need for PAP therapy. -Current DME: [facility] -PSG 07/03/2024 ; Initial AHI: 21 (3% criteria), 18.6 (4% criteria) -PAP titration: 07/11/2024 BiPAP @ 20/55tjG6Z -Compliance was reviewed from 08/21/2024 - 09/19/2024 -Total days used: (100%) -Total of all days >4 hours of use: 30 (100%) -Current model, mode, & set pressure: AirCurve 10 VAuto BiPAP 20/16 -Residual AHI: 1.3 -Air leak (median): 8.1L/min -Mask/harness fitting: Mild leak on sides -Sleep quality: Improved with BiPAP -Daytime hypersomnolence: Not falling asleep during the day now, has more energy -Recommendations: Patient has superb compliance and resolution of LINDSAY with BiPAP use. She is having a good subjective response. Only concern is a mild air leak - she is getting a new mask which should hopefully fix the issue. No issues otherwise with pressures. -The patient was reminded to continue to wear the PAP @ bedtime and with any naps. -This tovn-eb-tfbx visit comes with my authorization that the patient's DME may request to renew, reorder, and/or replace tubing, supplies, mask, and/or PAP device (if applicable). Moderate persistent asthma, uncomplicate d Prior treatments (all ineffective): Dulera, Symbicort, Advair, Arnuity Patient was being treated for asthma with chronic cough. However, PFT 06/28/2024 is normal, without evidence of obstruction in spirometry. She denies any dyspnea and wheezing. Today, she admits that Flonase improved the cough more than anything else. Since starting BiPAP, her reflux symptoms have resolved. Will focus on treating allergic rhinitis/PND at this time opposed to asthma. If that treatment does not help, may need to consider either referral to senior ux designer for allergy testing or a biologic (e.g. Dupixent, Fasenra). Allergic rhinitis Patient admits Flonase helped more than any other treatment. She does not take it on a regular basis. Recommended nasal regimen (wrote it out for her): AM -Saline rinse -Flonase 2 squirts each nostril -Astapro 1 squirt each nostril PM -Saline rinse -Astapro 1 squirt each nostril Will see how patient does with this. If no improvement, consider biologic or referral to senior ux designer for allergy testing - she states she previously was on allergy immunotherapy. Abnormal ANCA test 06/09/2024: Atypical pANCA 1:640 with MPO >8. These are not associated with any known pulmonary disease at this time. They can be seen in primary sclerosing cholangitis, autoimmune hepatitis, and ulcerative colitis. Patient has some vague abdominal symptoms - she is going to discuss these results with her PCP. Peripheral eosinophilia Eosinophils: -06/09/2024: 300 -03/09/2019: 300 -01/14/2019: 300 Mild elevation in eosinophils. Associated with allergies? Potential biologic candidate in the future? LPRD (laryngopharyngeal reflux disease) Symptoms of LPR/GERD resolved with LINDSAY use, but cough remained. She stopped PPI without any worsening cough or recurrence of reflux symptoms. Next Appt Details Follow Up: 4 Weeks, Reason: Cough Provider Name:Blaise Lassiter, 11/15/2024 10:00:00 AM, [address] [place], [address], Progress Notes * Kathryn HARGROVE ADOB:1954 (69 yo F)Acc No.[id number]:09/27/2024 Follow Up Patient: Kathryn AGUIRRE Provider: Moshe Lassiter DO :1955 A ge:69 Y S ex:Female Date:09/27/2024 Address:[facility] [facility] [address] , [place], [id number] Pcp:Lizabeth Douglas MD Check In:10:15 AM ESTCheck O ut:11:10 AM EST Subjective: * Chief Complaints: * F /D-PAE-IODRLA F2F ([facility]) * HPI: E pworth Sleepiness Scale: TRANSFER FROM [facility] Patient was last seen by me @ [facility] on 06/08/2024. Several issues were being addressed there: hypersomnia/LINDSAY & asthma/chronic cough. Regarding LINDSAY, she had PSG 07/03/2024 which confirmed LINDSAY with AHI 18.6 based on 4% criteria. ?She had BiPAP titration on 07/11/2024. Compliance was reviewed - she has superb compliance (100%) over the past month. She is sleeping better and feels more well-rested in the AM. Only concern is air leak on the sides of her mask - she is getting a new mask which should improve the leak. Regarding asthma/cough. She had multiple tests done which were reviewed. PFT 06/28/2024 was actually normal - no evidence of obstruction! Eosinophils remain slightly elevated @ 300, IgE 290. Negative Aspergillus Ab, Pertussis Ab. pANCA and cANCA normal range, but atypical pANCA was very elevated at 1:640, along with anti-MPO Ab >8 (ref 0-0.9). She complains of some epigastric pain, no diarrhea or history of IBS, no history of hepatic impairment. MA Intake Comments:. Addison Sleepiness Scale C maeve of dozing while sitting and reading:?0 - Never C maeve of dozing while watching TV: 0 - Never C maeve of dozing while sitting in a public place: 0 - Never C maeve of dozing as a passenger in a car for an hour without a break: 0 - Never C maeve of dozing while lying down in the afternoon to rest: 0 - Never C maeve of dozing while sitting and talking to someone: 0 - Never C maeve of dozing while sitting quietly after lunch: 0 - Never C maeve of dozing in a stopped car for a few minutes in traffic: 0 - Never T OTAL SCORE: 0 Patient presents for a follow-up for LINDSAY. Patient was seen at [facility] Pulmonary by and requested to transfer to [facility] Pulmonary. Patient is compliant with PAP machine.DME: [facility]. Patient denies any issues or concerns with her machine/supplies. Patient reports great benefit from her PAP. * ROS: G eneral/Constitutional: Fever or sweats d enies. C hange of appetite d enies. C hills d enies. W eight Change d enies. H EENT: Dry mouth d enies. S ore throat d enies. O ral Ulcers d enies. P ost Nasal Drip A dmits. C ongestion A dmits. H oarseness D enies. C ardiovascular: Tachycardia d enies. E dirk D enies. C hest pain d enies. P alpitations d enies. R espiratory: Chest tightness d enies. P leurisy D enies. D yspnea d enies. C ough a dmits. H emoptysis d enies. W heezing d enies. G astrointestinal: Acid Reflux/GERD/Heartburn d enies. D ysphagia d enies. M usculoskeletal: Arthralgias/joint pain D enies. S kin: Easy bruising d enies. R dusty d enies. ? N eurologic: Seizures d enies. T remor d enies. H ematology: Abnormal Bleeding d enies. P sychiatric: Anxiety d enies. * Active Problem List G47.33 LINDSAY (obstructive sle ep apnea) Modified On:09/27/2024/U Status:confirmed J30.9 Allergic rhinitis Modified On:09/27/2024/U Status:confirmed E11.9 DM2 (diabetes [facility], type 2) Modified On:09/27/2024/U Status:confirmed R76.8 Elevated IgE level Modified On:09/27/2024U Status:confirmed R76.8 Abnormal ANCA test Modified On:09/27/2024 Status:confirmed K21.9 LPRD (laryngopharyng eal reflux disease) Modified On:09/27/2024 Status:confirmed D72.19 Peripheral eosinophi arti Modified On:09/27/2024 Status:confirmed J45.40 Moderate persistent asthma, uncomplicated Modified On:07/10/2024 Status:confirmed * Medical History: * Surgical History: b ladder surgery excision of vocal cord nodule carpal tunnel release-right deviated septum repair cyst removal-neck cholecystectomy dilatation and curettage * Hospitalization/Major Diagno stic Procedure: D enies Past Hospitalization * Family History: M other: breast cancer, stroke, diagnosed with Unspecified essential hypertension, Unspecified heart disease, Colon cancer, Diabetes mellitus without mention of complication, type II or unspecified type, not stated as uncontrolled. S ister(s): breast cancer. F ather: diagnosed with Diabetes mellitus without mention of complication, type II or unspecified type, not stated as uncontrolled, Unspecified essential hypertension, Unspecified heart disease. B rother(s): diagnosed with Diabetes mellitus without mention of complication, type II or unspecified type, not stated as uncontrolled. 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 D rugs/Alcohol: D rugs H ave you used drugs other than those for medical reasons in the past 12 months? N o D oes the Patient have a History of Drug Abuse in the Past? N o Caffeine I ntake: O ccasionally Soda Do you drink alcohol?: No. Do you smoke marijuana?: Denies. * Medications: T akingAlbuterol Sulfate HFA 108 (90 Base) MCG/ACT Aerosol Solution 2 puffs as needed Inhalation every 4 hrs Cinnamon 500 MG Capsule as directed Orally Esomeprazole Magnesium 40 MG Capsule Delayed Release TAKE 1 CAPSULE BY MOUTH EVERY EVENING FOR 90 DAYS Oral Fish Oil 1000 MG Capsule 1 capsule Orally Three times a day Glimepiride 4 MG Tablet Oral Glucosamine Chond Cmp Advanced(Remember The Member Natural [employer]) - Tablet as directed Orally hydroCHLOROthiazide 25 MG Tablet Oral Lisinopril 10 MG Tablet 1 tablet Orally Once a day Lovastatin 40 MG Tablet Oral Meloxicam 15 MG Tablet Oral metFORMIN HCl ER 500 MG Tablet Extended Release 24 Hour Oral Metoprolol Succinate ER 25 MG Tablet Extended Release 24 Hour Oral Vitamin C 500 MG Capsule as directed Orally Vitamin D 25 MCG (1000 UT) Tablet 1 tablet Orally Once a day Medication List reviewed and reconciled with the patientTaking Albuterol Sulfate HFA 108 (90 Base) MCG/ACT Aerosol Solution 2 puffs as needed Inhalation every 4 hrs Taking Cinnamon 500 MG Capsule as directed Orally Taking Esomeprazole Magnesium 40 MG Capsule Delayed Release TAKE 1 CAPSULE BY MOUTH EVERY EVENING FOR 90 DAYS Oral Taking Fish Oil 1000 MG Capsule 1 capsule Orally Three times a day Taking Glimepiride 4 MG Tablet Oral Taking Glucosamine Chond Cmp Advanced(Remember The Member Natural Products) - Tablet as directed Orally Taking hydroCHLOROthiazide 25 MG Tablet Oral Taking Lisinopril 10 MG Tablet 1 tablet Orally Once a day Taking Lovastatin 40 MG Tablet Oral Taking Meloxicam 15 MG Tablet Oral Taking metFORMIN HCl ER 500 MG Tablet Extended Release 24 Hour Oral Taking Metoprolol Succinate ER 25 MG Tablet Extended Release 24 Hour Oral Taking Vitamin C 500 MG Capsule as directed Orally Taking Vitamin D 25 MCG (1000 UT) Tablet 1 tablet Orally Once a day Medication List reviewed and reconciled with the patient * Allergies: M ontelukast: Rash, Hives - Allergyno[Allergies Verified] Objective: * Vitals: W t:239.4lbs, Ht:64.0in, BP:sittin/81mm Hg, Temp:Forehead:97.1F, HR:64/min, RR:18/min, BMI:41.09Index, Oxygen sat %:Room Air:98%, Ht-cm: 162.56 cm, Wt-k.59 kg. * Examination: E xam: GENERAL APPEARANCE: A ppears stated age. Skin N ormal. Mouth P ink and moist. Oropharynx M allampati Class III. Trachea M idline. Chest N ormal. Respiratory Normal M ovements, E ffort N ormal. Auscultation N ormal breath sounds. Cardiac R egular rate and rhythm. Gastrointestinal I ncreased central adiposity. Vascular N o edema. Musculoskeletal N ormal posture. Neurological F ocal, intact. Psychiatric A lert and oriented x3. Mentation/Cognition N ormal. Assessment: * Assessment: 1. O SA (obstructive sleep apnea) - G47.33 (Primary) 2 . M oderate persistent asthma, uncomplicated - J45.40 3 . A llergic rhinitis - J30.9 ?4. A bnormal ANCA test - R76.8 5 . P eripheral eosinophilia - D72.19 & #160; 6 . L PRD (laryngopharyngeal reflux disease) - K21.9 Plan: * Treatment: 2. M oderate persistent asthma, uncomplicated Notes: Prior treatments (all ineffective): Dulera, Symbicort, Advair, Arnuity Patient was being treated for asthma with chronic cough. However, PFT 06/28/2024 is normal, without evidence of obstruction in spirometry. She denies any dyspnea and wheezing. Today, she admits that Flonase improved the cough more than anything else. Since starting BiPAP, her reflux symptoms have resolved. Will focus on treating allergic rhinitis/PND at this time opposed to asthma. If that treatment does not help, may need to consider either referral to senior ux designer for allergy testing or a biologic (e.g. Dupixent, Fasenra). 3. A llergic rhinitis Notes: Patient admits Flonase helped more than any other treatment. She does not take it on a regular basis. Recommended nasal regimen (wrote it out for her): AM -Saline rinse -Flonase 2 squirts each nostril -Astapro 1 squirt each nostril PM -Saline rinse -Astapro 1 squirt each nostril Will see how patient does with this. If no improvement, consider biologic or referral to senior ux designer for allergy testing - she states she previously was on allergy immunotherapy. 4. A bnormal ANCA test Notes: 06/09/2024: Atypical pANCA 1:640 with MPO >8. These are not associated with any known pulmonary disease at this time. They can be seen in primary sclerosing cholangitis, autoimmune hepatitis, and ulcerative colitis. Patient has some vague abdominal symptoms - she is going to discuss these results with her PCP. 5. P eripheral eosinophilia Notes: Eosinophils: -06/09/2024: 300 -03/09/2019: 300 -01/14/2019: 300 Mild elevation in eosinophils. Associated with allergies? Potential biologic candidate in the future? 6. L PRD (laryngopharyngeal reflux disease) Notes: Symptoms of LPR/GERD resolved with LINDSAY use, but cough remained. She stopped PPI without any worsening cough or recurrence of reflux symptoms. * Procedure Codes: * Preventive Medicine: COVID Vaccination: H as patient had COVID Vaccination? COVID Vaccination Y es 05/30/2021 Immunization Status: P neumovacc p neumovacc 23-04/08/2021. I nfluenza 1 06/12/2023. Screenings/Counseling: F ALL RISK SCREENING Fall Risk Assessment: N o falls in the past year Are you afraid of falling? N o T OBACCO ACTION PLAN Exclusion: M edical Reason Non Smoker Type of Medical Reason: N ot indicated B TN ACTION PLAN Above Normal BMI Follow-up D ietary management education, guidance, and counseling * Disposition & Communication: A ttestation: Over 40 minutes spent on patient's visit today, including 25 minutes ydoj-aw-wxps. Reviewed PFT, labs. Reviewed PSG, titration study, and compliance data. Reviewed prior treatments (inhaled, PPI). Discussed further w/up including referral to senior ux designer. Reviewed atypical P-ANCA and addressed non-pulmonary issues associated with it. Created individualized nasal regimen for patient. * Follow Up: 4 Weeks (Reason: Cough) * * Sign off status: Completed Visit Status: C HK (Check Out) true * Provider: Moshe Lassiter DO Date: 0 09/27/2024 Generated for Hayden rush/Khoa/Jodiitting on: 0 11/02/2024 07:46 AM EDT History and Physical Notes * HPI (History of Present Illness) Category Sub-Category Detail Notes Category Not es Addison Sleepiness Scale Addison Sleepiness Scale Chance of dozing while sitting and reading:: 0 - Never Patient presents for a follow-up for LINDSAY. Patient was seen at [facility] Pulmonary by and requested to transfer to [facility] Pulmonary. Patient is compliant with PAP machine.DME: [facility]. Patient denies any issues or concerns with her machine/supplies. Patient reports great benefit from her PAP. Chance of dozing while watching TV:: 0 - Never Chance of dozing while sitting in a publ ic place:: 0 - Never Chance of dozing as a passen dennise in a car for an hour without a break:: 0 - Never Chance of dozing while lying down in the afternoon to rest:: 0 - Never Chance of dozing while sitting and talki ng to someone:: 0 - Never Chance of dozing while sitting quietly a fter lunch:: 0 - Never Chance of dozing in a stopped car for a few minutes in traffic:: 0 - Never TOTAL SCORE:: 0 Examination Category Sub-Category Detail Notes Category Not es Exam GENERAL APPEARANCE: Appears stated age Skin Normal Mouth [place] and moist Trachea Midline Chest Normal Respiratory Normal Movements, Ef fort Normal Auscultation Normal breath sounds Cardiac Regular rate and rhy thm Gastrointestinal Increased central ad iposity Vascular No edema Musculoskeletal Normal posture Neurological Focal, intact Psychiatric Alert and oriented x 3 Mentation/Cognition Normal Oropharynx Mallampati Class III
--- OUTSIDE RECORDS SUMMARY | 2024-11-01 04:30 | XMS_ITS ---
Author Organization The [facility] in [place] Address [address] [place] [address] Care Team Providers Care Bursar Name Role Phone Lizabeth Douglas MD Primary Care Provider Angelica santos Blaise Lassiter Unavailable [phone] Allergies Allergen (clinical drug ingredient) Drug/Non Drug Allergy documented on EMR Reaction Allergy Type Onset Date Status montelukast Montelukast Rash, Hives Drug Allergy A ctive REASON FOR VISIT 1m F/U - Cough Medications Medication SIG (Take, Route, Frequency, Duration) Notes Start Date End Date Status Albuterol Sulfate HFA 108 (9 0 Base) MCG/ACT 2 puffs as needed Inhalation every 4 hrs Active Cinnamon 500 MG as directed Orally Active Esomeprazole Magnesium 40 MG TAKE 1 CAPS ULE BY MOUTH EVERY EVENING FOR 90 DAYS Oral for 90 Days Active Fish Oil 1000 MG 1 capsule Orally Three times a day Active Vitamin E 400 UNIT 1 capsule Orally Onc e a day Active metFORMIN HCl ER 500 MG Oral for 90 Days Active Metoprolol Succinate ER 25 MG Oral for 90 Days Active Vitamin C 500 MG as directed Orally Active Vitamin D 25 MCG (1000 UT) 1 tablet Oral ly Once a day Active Zinc 50 MG 1 tablet Orally Once a day Active Glucosamine Chond Cmp Advanc ed - as directed Orally Active hydroCHLOROthiazide 25 MG Oral for 90 Days Active Lisinopril 10 MG 1 tablet Orally Once a day for 90 days Active Lovastatin 40 MG Oral for 90 Days Active Meloxicam 15 MG Oral for 90 Days Active Glimepiride 4 MG Oral for 90 Days Active Social History Tobacco Use: Social History Observation Description Date Details (start date - stop date) Never Smoker NA - NA Tobacco Control (Standard) Question Answer Notes Tobacco use: Nonsmoker Problems Problem Type SNOMED Code ICD Code Onset Dates Problem Status W/U Status Risk Notes Problem Morbid obesity (E66.01) Active confirmed Vital Signs Temperature 96.8 degrees Fahrenheit 11/02/19 25 Blood pressure systolic 160 mm Hg 11/02/19 25 Blood pressure diastolic 86 mm Hg 025 Heart Rate 69 /min 11/01/2024 Respiratory Rate 18 /min 11/01/2024 Height 64.0 in 11/01/2024 Weight 233.4 lbs 11/01/2024 BMI 40.06 kg/m2 11/01/2024 Oximetry 96 % 11/01/2024 Encounters Encounter Location Date Provider Diagnosis [facility] [place] [address] [place] [address] 11/01/2024 Blaise Lassiter Moderate persistent asthma, uncomplicated J45.40 ; Chronic cough R05.3 ; LINDSAY (obstructive sleep apnea) G47.33 ; Allergic rhinitis J30.9 ; Abnormal ANCA test R76.8 ; Peripheral eosinophilia D72.19 ; LPRD (laryngopharyngeal reflux disease) K21.9 and Morbid obesity E66.01 Assessments Encounter Date Diagnosis (ICD Code) Assessment Notes Treatment Notes Treatment Clinical Notes Section Notes 11/01/2024 Moderate persistent asthma, uncomplicated (ICD-10 - J45.40) Prior treatments (all ineffective): Dulera, Symbicort, Advair, Arnuity See above. Will try Trelegy 200. She was counseled to rinse after use. May need to conisder biologic therapy in the future. 11/01/2024 Chronic cough (ICD-10 - R05.3) Chronic cough for >10 years. She has been treated for asthma, GERD/LPR, and PND/UACS without any significant improvement in symptoms. Previously on allergy immunotherapy several decades ago; most recently, she claims that the material crew supervisor told her there was nothing else that could be done. Etiology is unclear. Discussed options at this time: -Referral to another material crew supervisor for second opinion -HRCT -Biologic (e.g. Nucala, Fasenra, Dupixent) for elevated eosinophils -Bronchoscopy -Gabapentin Patient voiced concern there is something in her airway that could be contributing to the cough. A bronchoscopy would be indicated at this point. She recalls that several years ago a general surgeon was going to perform what appears to be a bronchoscopy, but it was aborted? She states she also had a colonoscopy more recently and stopped breathing during the procedure. She voiced her concern about anesthesia. The CT abdomen/pelvis 10/05/2024 noted mild bibasilar scarring. With elevated MPO, question possible ILD. A full CT chest would be indicated. CXR 09/30/2023 was unremarkable. I would recommend ordering a HRCT for the chronic cough, as well as to investigate further the mild bibasilar scarring noted on the CT abdomen/pelvis; elevated MPO and eosinophils could be related to an underlying connective tissue disease such as eosinophilic granulomatosis with polyangiitis (EGPA, formerly known as Churg-Charles), though I would expect a higher eosinophil count. Obtaining imaging before a bronchoscopy is indicated in the event BAL or transbronchial biopsies would be necessary to investigate abnormal parenchymal findings. In the meantime, suggested trial of Trelegy 200 - she has not been on triple inhaled therapy. Trelegy 200 is the more potent steroid dose. She was counseled to rinse after use. Will have her return in 2 weeks to review HRCT and response to Trelegy 200. Anticipate she will require a bronchoscopy. We discussed risks & benefits. Her main concern is that she stopped breathing during colonoscopy - I do not know what sedative she was administered (e.g. propofol). I am also unclear what occured when the general surgeon was attempting what sounds to be some sort of endoscopy - unclear if bronchoscopy or EGD. If she wishes to pursue bronchoscopy, she will need PAT and anesthesia will be involved. 11/01/2024 LINDSAY (obstructive sleep apnea) (ICD-10 - G47.33) Gshm-ly-bemv encounter performed with the patient to document continued need for PAP therapy. -Current DME: [facility] 07/03/2024 ; Initial AHI: 21 (3% criteria), 18.6 (4% criteria) -PAP titration: 07/11/2024 BiPAP @ 20/92xmO5E -Compliance was reviewed from 09/26/2024 - 10/25/2024 -Total days used: (100%) -Total of all days >4 hours of use: 30 (100%) -Current model, mode, & set pressure: AirCurve 10 VAuto BiPAP 20/16 -Residual AHI: 1 -Air leak (median): 10.6L/min -Mask/harness fitting: Mild leak on sides -Sleep [...] @ bedtime and with any naps. -This [id number]-pn-ffvp visit comes with my authorization that the patient's DME may request to renew, reorder, and/or replace tubing, supplies, mask, and/or PAP device (if applicable). 11/01/2024 Allergic rhinitis (ICD-10 - J30.9) Nasal regimen with saline rinse, Flonase, and Astapro did not have any significant improvement. 11/01/2024 Abnormal ANCA test (ICD-10 - R76.8) 06/09/2024: Atypical pANCA 1:640 with MPO >8. Correlation with cough is unclear. EGPA typically would have an eosinophil count greater than 300, but I cannot R/O anything at this point. May need to consider biologic to treat (e.g. Nucala) if further w/up is unremarkable. 11/01/2024 Peripheral eosinophilia (ICD-10 - D72.19) Eosinophils: -06/09/2024: 300 -03/09/2019: 300 -01/14/2019: 300 May consider biologic treatment in the future despite unremarkable PFT. 11/01/2024 LPRD (laryngopharyngea l reflux disease) (ICD-10 - K21.9) Potential contributor to cough, but she denies any symptoms of reflux at this time. 11/01/2024 Morbid obesity (ICD-10 - E66.01) Patient's weight is inducing a restrictive pulmonary physiology. Weight loss indicated: Decrease calories, increase activity. Plan Of Treatment Treatment Notes Assessment Notes Moderate persistent asthma, uncomplicate d Prior treatments (all ineffective): Dulera, Symbicort, Advair, Arnuity See above. Will try Trelegy 200. She was counseled to rinse after use. May need to conisder biologic therapy in the future. Chronic cough Chronic cough for >10 years. She has been treated for asthma, GERD/LPR, and PND/UACS without any significant improvement in symptoms. Previously on allergy immunotherapy several decades ago; most recently, she claims that the material crew supervisor told her there was nothing else that could be done. Etiology is unclear. Discussed options at this time: -Referral to another material crew supervisor for second opinion -HRCT -Biologic (e.g. Nucala, Fasenra, Dupixent) for elevated eosinophils -Bronchoscopy -Gabapentin Patient voiced concern there is something in her airway that could be contributing to the cough. A bronchoscopy would be indicated at this point. She recalls that several years ago a general surgeon was going to perform what appears to be a bronchoscopy, but it was aborted? She states she also had a colonoscopy more recently and stopped breathing during the procedure. She voiced her concern about anesthesia. The CT abdomen/pelvis 10/05/2024 noted mild bibasilar scarring. With elevated MPO, question possible ILD. A full CT chest would be indicated. CXR 09/30/2023 was unremarkable. I would recommend ordering a HRCT for the chronic cough, as well as to investigate further the mild bibasilar scarring noted on the CT abdomen/pelvis; elevated MPO and eosinophils could be related to an underlying connective tissue disease such as eosinophilic granulomatosis with polyangiitis (EGPA, formerly known as Churg-Charles), though I would expect a higher eosinophil count. Obtaining imaging before a bronchoscopy is indicated in the event BAL or transbronchial biopsies would be necessary to investigate abnormal parenchymal findings. In the meantime, suggested trial of Trelegy 200 - she has not been on triple inhaled therapy. Trelegy 200 is the more potent steroid dose. She was counseled to rinse after use. Will have her return in 2 weeks to review HRCT and response to Trelegy 200. Anticipate she will require a bronchoscopy. We discussed risks & benefits. Her main concern is that she stopped breathing during colonoscopy - I do not know what sedative she was administered (e.g. propofol). I am also unclear what occured when the general surgeon was attempting what sounds to be some sort of endoscopy - unclear if bronchoscopy or EGD. If she wishes to pursue bronchoscopy, she will need PAT and anesthesia will be involved. LINDSAY (obstructive sleep apnea) Bgza-wj-oxrg encounter performed with the patient to document continued need for PAP therapy. -Current DME: [facility] 07/03/2024 ; Initial AHI: 21 (3% criteria), 18.6 (4% criteria) -PAP titration: 07/11/2024 BiPAP @ 20/31wiH3I -Compliance was reviewed from 09/26/2024 - 10/25/2024 -Total days used: 30 (100%) -Total of all days >4 hours of use: 30/ (100%) -Current model, mode, & set pressure: AirCurve 10 VAuto BiPAP 20/16 -Residual AHI: 1 -Air leak (median): 10.6L/min -Mask/harness fitting: Mild leak on sides -Sleep [...] @ bedtime and with any naps. -This zkdk-hz-jukr visit comes with my authorization that the patient's DME may request to renew, reorder, and/or replace tubing, supplies, mask, and/or PAP device (if applicable). Allergic rhinitis Nasal regimen with saline rinse, Flonase, and Astapro did not have any significant improvement. Abnormal ANCA test 06/09/2024: Atypical pANCA 1:640 with MPO >8. Correlation with cough is unclear. EGPA typically would have an eosinophil count greater than 300, but I cannot R/O anything at this point. May need to consider biologic to treat (e.g. Nucala) if further w/up is unremarkable. Peripheral eosinophilia Eosinophils: -06/09/2024: 300 -03/09/2019: 300 -01/14/2019: 300 May consider biologic treatment in the future despite unremarkable PFT. LPRD (laryngopharyngeal reflux disease) Potential contributor to cough, but she denies any symptoms of reflux at this time. Morbid obesity Patient's weight is inducing a restrictive pulmonary physiology. Weight loss indicated: Decrease calories, increase activity. Pending Test Test Name Order Date CT Chest High Resolution 11/01/2024 Next Appt Details Follow Up: 2 Weeks, Reason: Chronic cough Provider Name:Blaise Lassiter, 11/15/2024 10:00:00 AM, [address] [place], [address], Procedure Notes * Category Sub-Category Detail Notes PFT Data: 06/28/2024 - [facility]- FEV1/FVC: 85%-FEV1: 91%-FVC: 82%-No bronchodilator administered-RV: 122%-T%-DLCO: 84% Progress Notes * Kathryn HARGROVE ADOB:1954 (69 yo F)Acc No.[id number]:11/01/2024 UNLOCKED PROGRESS NOTE Follow Up Patient: Kathryn AGUIRRE Provider: Moshe Lassiter DO :1955 A ge:69 Y S ex:Female Date:11/01/2024 Address:[address] [place], [place] [id number] Pcp:Lizabeth Douglas MD Check In:08:24 AM ESTCheck O ut:09:11 AM EST Subjective: * Chief Complaints: * 1 . 1m F/U - Cough. * HPI: G eneral: Patient continues to have her chronic cough. She followed the aggressive sinus regimen outlined after last visit - this did not greatly improve her symptoms. Coughing is mainly dry, but occasionally expectorates. Reviewed multiple inhalers she tried and failed in the past. Had LPR/GERD but no current symptoms. No recent CT chest - was last done ~decade ago @ [facility]. CT abdomen done @ [facility] 10/05/2024 was reviewed - it clipped the lung bases and the report mentioned mild bibasilar scarring. MA Intake Comments:. Patient presents for a follow-up for a Cough. Patient was started on a Nasal spray/rinse regimen last visit with minimal improvement. Patient has increased H2O intake and decreased the amount of cough drops she is currently taking. Patient complains of Cough, Sinus Congestion & left ear tingling/plugging. Patient denies fevers, chills or night sweats. Patient is wearing her PAP at HS with benefit. DME: [facility]. * ROS: G eneral/Constitutional: Fever or sweats [...] enies. P sychiatric: Anxiety d enies. * Medical History: O SA (obstructive sleep apnea), Moderate persistent asthma, uncomplicated, Peripheral eosinophilia, LPRD (laryngopharyngeal reflux disease), GERD (gastroesophageal reflux disease), OA (osteoarthritis), HTN (hypertension), DM2 (diabetes mellitus, type 2), HLD (hyperlipidemia), Elevated IgE level, Abnormal ANCA test, Allergic rhinitis, Cervical spinal stenosis, History of bladder cancer, Morbid obesity. * Surgical History: b ladder surgery , excision of vocal cord nodule , carpal tunnel release-right , deviated septum repair , cyst removal-neck , cholecystectomy , dilatation and curettage . * Hospitalization/Major Diagno stic Procedure: D enies Past Hospitalization. * Family History: M other: breast cancer, stroke, diagnosed with Diabetes mellitus without mention of complication, type II or unspecified type, not stated as uncontrolled, Unspecified essential hypertension, Unspecified heart disease, Colon cancer. S ister(s): breast cancer. F ather: diagnosed with Unspecified essential hypertension, Unspecified heart disease, Diabetes mellitus without mention of complication, type II or unspecified type, not stated as uncontrolled. B rother(s): diagnosed with Diabetes mellitus without [...] you smoke marijuana?: Denies. * Medications: T aking Albuterol Sulfate HFA 108 (90 Base) MCG/ACT Aerosol Solution 2 puffs as needed Inhalation every 4 hrs , Taking Cinnamon 500 MG Capsule as directed Orally , Taking Esomeprazole Magnesium 40 MG Capsule Delayed Release TAKE 1 CAPSULE BY MOUTH EVERY EVENING FOR 90 DAYS Oral , Taking Fish Oil 1000 MG Capsule 1 capsule Orally Three times a day , Taking Glimepiride 4 MG Tablet Oral , Taking Glucosamine Chond Cmp Advanced([facility]) - Tablet as directed Orally , Taking hydroCHLOROthiazide 25 MG Tablet Oral , Taking Lisinopril 10 MG Tablet 1 tablet Orally Once a day , Taking Lovastatin 40 MG Tablet Oral , Taking Meloxicam 15 MG Tablet Oral , Taking metFORMIN HCl ER 500 MG Tablet Extended Release 24 Hour Oral , Taking Metoprolol Succinate ER 25 MG Tablet Extended Release 24 Hour Oral , Taking Vitamin C 500 MG Capsule as directed Orally , Taking Vitamin D 25 MCG (1000 UT) Tablet 1 tablet Orally Once a day , Taking Vitamin E 400 UNIT Capsule 1 capsule Orally Once a day , Taking Zinc 50 MG Tablet 1 tablet Orally Once a day , Medication List reviewed and reconciled with the patient * Allergies: M ontelukast: Rash, Hives - Allergy. Objective: * Vitals: W t:233.4lbs, Ht: 64.0 in, BP:sittin/86mm Hg, Temp:Forehead:96.8F, HR:69/min, RR:18/min, BMI:40.06Index, Oxygen sat %:Room Air:96%, Ht-cm: 162.56 cm, Wt-k.87 kg. * Examination: E xam: GENERAL APPEARANCE: D ry cough throughout the entire encounter. Skin N ormal. Nose N o polyps. Mildly enlarged turbinates. Mouth P ink and moist. Oropharynx M allampati Class III. Trachea M idline. Chest N ormal. Respiratory Normal M ovements, E ffort N ormal. Auscultation B reath sounds remain clear to auscultation without wheezes, crackles, or rhonchi. Cardiac R egular rate and rhythm. Gastrointestinal I ncreased central adiposity. Vascular N o edema. Musculoskeletal N ormal posture. Neurological F ocal, intact. Psychiatric A lert and oriented x3. Mentation/Cognition N ormal. Assessment: * Assessment: 1. C hronic cough - R05.3 (Primary) 2 . M oderate persistent asthma, uncomplicated - J45.40 3 . O SA (obstructive sleep apnea) - G47.33 4 .?Allergic rhinitis - J30.9 5 . A bnormal ANCA test - R76.8 6 . P eripheral eosinophilia - D72.19 7 . L PRD (laryngopharyngeal reflux disease) - K21.9 8 . M orbid obesity - E66.01 Plan: * Treatment: 2. M oderate persistent asthma, uncomplicated Notes: Prior treatments (all ineffective): Dulera, Symbicort, Advair, Arnuity See above. Will try Trelegy 200. She was counseled to rinse after use. May need to conisder biologic therapy in the future. 3. O SA (obstructive sleep apnea) Notes: Oipk-on-laow encounter performed with the patient to document continued need for PAP therapy. -Current DME: [facility] 07/03/2024 ; Initial AHI: 21 (3% criteria), 18.6 (4% criteria) -PAP titration: 07/11/2024 BiPAP @ 20/45snD2S -Compliance was reviewed from 09/26/2024 - 10/25/2024 -Total days used: 30 (100%) -Total of all days >4 hours of use: 30/30 (100%) -Current model, mode, & set pressure: AirCurve 10 VAuto BiPAP 20/16 -Residual AHI: 1 -Air leak (median): 10.6L/min -Mask/harness fitting: Mild leak on sides -Sleep [...] @ bedtime and with any naps. -This sswy-ig-idcd visit comes with my authorization that the patient's DME may request to renew, reorder, and/or replace tubing, supplies, mask, and/or PAP device (if applicable). 4. A llergic rhinitis Notes: Nasal regimen with saline rinse, Flonase, and Astapro did not have any significant improvement.? 5. A bnormal ANCA test I maging: CT Chest High Resolution Notes: 06/09/2024: Atypical pANCA 1:640 with MPO >8. Correlation with cough is unclear. EGPA typically would have an eosinophil count greater than 300, but I cannot R/O anything at this point. May need to consider biologic to treat (e.g. Nucala) if further w/up is unremarkable. 6. P eripheral eosinophilia I maging: CT Chest High Resolution Notes: Eosinophils: -06/09/2024: 300 -03/09/2019: 300 -01/14/2019: 300 May consider biologic treatment in the future despite unremarkable PFT. 7. L PRD (laryngopharyngeal reflux disease) Notes: Potential contributor to cough, but she denies any symptoms of reflux at this time. 8. M orbid obesity Notes: Patient's weight is inducing a restrictive pulmonary physiology. Weight loss indicated: Decrease calories, increase activity. * Procedures: P FT: Data: 06/28/2024 - [facility] -FEV1/FVC: 85% -FEV1: 91% -FVC: 82% -No bronchodilator administered -RV: 122% -T% -DLCO: 84%. * Preventive Medicine: COVID Vaccination: H as [...] of Medical Reason: N ot indicated B [place] ACTION PLAN Above Normal BMI Follow-up D ietary management education, guidance, and counseling * Disposition & Communication: A ttestation: Over 40 minutes spent on patient today. Reviewed past inhaled therapy, sinus regimen. Personally reviewed CT imaging and reports. Discussed options. Discussed risks & benefits of bronchoscopy and her concerns with anesthesia. Ordered HRCT and starting Trelegy 200. * Follow Up: 2 Weeks (Reason: Chronic cough) * * Electronic signature of Heidi Lassiter , on 11/02/2024 at 07:46 AM EDT Sign off status: Pending Visit Status: C HK (Check Out) * Provider: Moshe Lassiter, DO Date: 0 11/01/2024 Generated for Hayden rush/Khoa/Benjismitting on: 0 11/02/2024 07:46 AM EDT History and Physical Notes * HPI (History of Present Illness) Category Sub-Category Detail Notes Category Not es General Patient present s for a follow-up for a Cough. Patient was started on a Nasal spray/rinse regimen last visit with minimal improvement. Patient has increased H2O intake and decreased the amount of cough drops she is currently taking. Patient complains of Cough, Sinus Congestion & left ear tingling/plugging. Patient denies fevers, chills or night sweats. Patient is wearing her PAP at with benefit. DME: [facility] [employer]. Examination Category Sub-Category Detail Notes Category Not es Exam GENERAL APPEARANCE: Dry cough throughout the entire encounter Skin Normal Nose No polyps. Mildly en larged turbinates Mouth [place] and moist Trachea Midline Chest Normal Respiratory Normal Movements, Ef fort Normal Auscultation Breath sounds remain clear to auscultation without wheezes, crackles, or rhonchi Cardiac Regular rate and rhy thm Gastrointestinal Increased central ad iposity Vascular No edema Musculoskeletal Normal posture Neurological Focal, intact Psychiatric Alert and oriented x 3 Mentation/Cognition Normal Oropharynx Mallampati Class III
--- NOTE | 2024-11-02 07:47 | CT_ITS ---
The [address] [address] Patient Name: KATHRYN HARGROVE MRN: [id number] date: 1955 Sex: F Assigned Patient Location: CT Current Patient Location: CT Accession/Order Number: [id number] Exam Date: 11/02/2024 09:47 Report Date: 11/02/2024 10:03 At the request of: JODIE CEDEÑO DO Procedure: CT chest high res RESOLUTION CT CHEST WITHOUT CONTRAST COMPARISON: None CLINICAL DATA: Chronic cough. Eosinophilia Spiral axial unenhanced images were obtained through the chest. Images were reconstructed at 1 mm sections at 10 mm increments. Patient was also scanned in prone position with high-resolution technique. Images were reviewed using both narrow and wide window settings. This CT exam was performed using one or more following dose reduction techniques: Automated exposure control, adjustment of the mA and/or kV according to patient size, or use of iterative reconstruction technique. The heart is top normal in size. No pericardial effusion is present. Mild coronary disease is seen. There is no aortic aneurysm. There is mild plaque at the aortic arch and proximal great vessels. There are small nonpathologic calcified and noncalcified mediastinal lymph nodes. There are also calcified right hilar granulomas. Bronchial wall calcification is present. Subtle dextroscoliotic curvature and mild degenerative changes are visualized at the spine. There is minor basilar atelectasis or scarring. No consolidation, pleural effusion or pneumothorax is seen. No interstitial or obstructive disease is identified. There is no bronchiectasis. A 6 mm noncalcified nodule is present within the right lower lobe. There is a subpleural nodule at the lateral left lower lobe measuring approximately 9 mm in greatest dimension. There is also a small 4 mm nodule in close proximity. A calcified granuloma is seen at the right middle lobe. Limited cuts through the upper abdomen show calcified hepatic and splenic granulomas. CT/CT chest high res IMPRESSION: GRANULOMATOUS CHANGES. MINOR ATELECTASIS AND/OR SCARRING. INCIDENTAL PULMONARY NODULARITY, DESCRIBED. [address] FOLLOW-UP COULD BE CONSIDERED. NO ACUTE FINDINGS. Impression dictated by: Kathryn Pinto M.D. 11/02/2024 10:03 AM Dictation Location: [place] [address] Electronically authenticated by: [id number] Y Date: 11/02/2024 10:03
--- OUTSIDE RECORDS SUMMARY | 2024-11-02 07:47 | XMS_ITS | Clinical Summary ---
Author Organization [facility] Address [address] [place] [address] Care Team Providers Care Supervisor [employer] Name Role Phone Lizabeth Douglas MD Primary Care Provider Haider Lopez MD Unavailable Neftaly Mcmanus DO Unavailable Blaise Lassiter DO Unavailable [phone] Allergies Active Allergy Reactions Criticality Noted Date Comments Losartan Rash,Swelling Low 11/29/2013 Montelukast Rash Low 03/14/2011 Medications Ascorbic Acid (vitamin C) 500 MG tablet Take 1 tablet by mouth Daily Active cetirizine (ZyrTEC) 10 MG tablet Take 1 tablet by mouth Daily Active CINNAMON PO Take by mouth Acti ve glimepiride (Amaryl) 2 MG tablet Take 1 tablet by mouth in the morning. 03/15/2023 Active hydroCHLOROthia zide (HYDRODiuril) 25 MG tablet Take 1 tablet by mouth Daily 06/04/2023 Active lisinopril 10 MG tablet Take 1 tablet by mouth Daily 06/04/2023 Active lovastatin (Mevacor) 40 MG tablet Take 40 mg by mouth at bedtime 06/04/2023 Active meloxicam (Mobic) 15 MG tablet Take 1 tablet by mouth Daily 06/30/2023 Active metFORMIN XR (Glucophage-XR) 500 MG 24 hr tablet 06/03/2023 Active metoprolol succinate XL (Toprol-XL) 25 MG 24 hr tablet Take 1 tablet by mouth Daily 06/04/2023 Active omega-3 (Fish Oil) 1000 MG capsule Take 3 capsules by mouth Daily Active alpha tocopherol (Vitamin E) 400 units capsule Take 1 capsule by mouth Daily Active Multiple Vitamins-Minera ls (ZINC PO) Take by mouth Act lyric VITAMIN D PO Take by mouth Act lyric GLUCOSAMINE-CHO NDROITIN PO Take by mouth Acti ve zinc gluconate 50 MG tablet Take 50 mg by mouth Daily Active esomeprazole (NexIUM) [address] capsule Take 40 mg by mouth in the morning. Take before meals. 09/30/2023 Active Arnuity Ellipta 100 MCG/ACT inhaler Active Active Problems Problem Noted Date Diagnosed Date History of bladder cancer 07/13/2023 Deviated nasal septum 07/09/2023 Lumbar degenerative disc disease 07/09/2023 Polyneuropathy due to type 2 diabetes mellitus 0 07/09/2023 Type 2 diabetes mellitus 07/01/2022 Asthma 03/14/2011 Esophageal reflux 03/14/2011 Essential hypertension, benign 03/14/2011 Pure hypercholesterolemia 03/14/2011 Resolved Problems Problem Noted Date Diagnosed Date Resolved Date BMI 39.0-39.9,adult 03/17/2024 03/17/20 24 Obesity 03/17/2024 03/17/2024 Mild intermittent asthma, uncomplicated 03/17/2024 03/17/2024 Peripheral eosinophilia 03/17/202402/28 Encounters Date Type Department Care Team Description 09/11/2024 1:45 PM EDT Procedure Visit [facility] [address] [place] [address] Fidel Garcia DPM Diabetic polyneuropathy associated with type 2 diabetes mellitus (CMS/HCC) (Primary Dx); Onychomycosis 09/11/2024 Bamboo flowsheet [facility] [address] [place] [address] Fidel Garcia DPM 09/11/2024 Travel from Last 3 Months Immunizations Immunization Administration Dates Next Due Influenza, Unspecified 04/11/2019,04/12/2018 Influenza, injectable, MDCK, preservative free, quadrivalent 04/06/2023 Pneumococcal Polysaccharide PPSV23 04/08/2021 Family History Medical History Relation Name Comments Diabetes Father htn Father Cancer Mother htn Mother Relation Name Status Comments Father Mother Social History Tobacco Use Types Packs/Day Years Used Date Smoking Tobacco: Never Smokeless Tobacco: Never Tobacco Cessation:Counseling Given: Not Answered Alcohol Use Standard Drinks/Week Comments Never 0 (1 standard drink = 0.6 oz pur e alcohol) Comments Unknown Sex and Gender Information Value Date Recorded Sex Assigned at Not on file Legal Sex Female 7:21 PM EDT Gender Identity Not on file Sexual Orientation Not on file Last Filed Vital Signs Vital Sign Reading Time Taken Comments Blood Pressure 111/59 09/11/2024 1:39 PM EDT Pulse 70 09/11/2024 1:39 PM EDT Temperature - - Respiratory Rate 16 07/13/2023 9:47 AM EST Oxygen Saturation - - Inhaled Oxygen Concentration - - Weight 109 kg (240 lb) 09/11/2024 1:39 PM EDT Height 165.1 cm (5' 5 ) 09/11/2024 1:39 PM EDT Body Mass Index 39.94 09/11/2024 1:39 PM EDT Plan of Treatment Upcoming Encounters Date Type Department Care Team (Late st Contact Info) Description 09/11/2025 9:00 AM EDT Procedure Visit [facility] [address] [place] [id number] Fidel Garcia, JUNE [address] [place] [address] Health Maintenance Due Date Last Done Comments CT Colonography 1955 FIT-DNA 1955 FIT 1955 FOBT 1955 Sigmoidoscopy 1955 Pneumococcal Vaccine: 65+ Ye ars (2 of 2 - PCV) 04/08/2022 04/08/2021 Mammogram 05/22/2025 05/22/2024, 05/01, 05/20/2023, Additional history exists Colonoscopy 06/02/2034 06/02/2024, 06/01, 12/29/2006 Colorectal Cancer Screening 06/02/2034 Influenza Vaccine Completed 04/12/2024, , 04/11/2019, Additional history exists Insurance MEDICARE [employer] Care Teams Supervisor [employer] Relationship Specialty Start Date End Date Lizabeth Douglas MD [address] [place] [id number] PCP - General Family Medicine 07/13/23 Haider Lopez MD [address] [place] [address] Referring Physician Family Medicine 03/20/24 Neftaly Mcmanus DO [address] [place] [address] Otolaryngology 03/20/24 Blaise Lassiter DO [address] [place] [address] Referring Physician Pulmonary Disease 07/19/24
--- OUTSIDE RECORDS SUMMARY | 2024-11-02 07:56 | XMS_ITS | CCD ---
Author Organization [facility] Inform ion Partnership [facility] Care Team Providers Care Diplomatic Interpreter/Translator Name Role Phone NO, PHYSICIAN Unavailable Unavailable Suzanne Douglas Primary Care Provider [phone] Suzanne Douglas Primary Care Provider German Miranda Unavailable Charline Wilburn Unavailable Anais Farley Unavailable Mary Anne Chan Unavailable [phone] SUZANNE DOUGLAS Primary Care Physician Suzanne Douglas MD Primary Care Provider DR CHIKI MONIQUE Admitting Unavailable MISC, DR ZEPEDA Primary Care Unavailable ENEIDA, DR MONET Consulting Unavailable ENEIDA, DR MONET Attending Unavailable VERHOALIN, DR SUZANNE Rosales Consulting Unavailable JOSE, DR SUZANNE Rosales Attending Unavailable JOSE, DR SUZANNE Rosales Admitting Unavailable Suzanne Douglas MD Primary Care Provider Hiader Lopez MD Unavailable [phone] Neftaly Mcmanus DO Unavailable Suzanne Douglas MD Primary Care Provider Freddy KRAUS Admitting Unavailable Freddy KRAUS Attending Unavailable Freddy KRAUS Referring Unavailable Blaise Lassiter MD Unavailable NEFTALY MCMANUS Attending Unavailable HAIDER LOPEZ Referring Unavailable NEFTALY MCMANUS Attending Unavailable HAIDER LOPEZ Referring Unavailable MARY ANNE BABB Attending UnavailBlaise Narvaez MD Unavailable VERHOFF, SUZANNE L Primary Care Unavailable BACK, CARLOS Referring Unavailable VERHOFF, SUZANNE L Primary Care Unavailable BACK, CARLOS Admitting Unavailable BACK, CARLOS Attending Unavailable VERHOFF, SUZANNE L Primary Care Unavailable BACK, CARLOS Referring Unavailable BACK, CARLOS Attending Unavailable VERHOFF, SUZANNE L Primary Care Unavailable AMALFITANO, KRAIG Referring Unavailable AMALFITANO, KRAIG Attending Unavailable AMALFITANO, KRAIG Attending Unavailable VERHOFF, SUZANNE L Primary Care Unavailable AMALFITANO, KRAIG Referring Unavailable AMALFITANO, KRAIG Attending Unavailable VERHOFF, SUZANNE L Primary Care Unavailable AMALFITANO, KRAIG Referring Unavailable VERHOFF, SUZANNE L Primary Care Unavailable AMALFITANO, KRAIG Referring Unavailable AMALFITANO, KRAIG Attending Unavailable AMALFITANO, KRAIG Attending Unavailable AMALFITANO, KRAIG Referring Unavailable VERHOFF, SUZANNE L Primary Care Unavailable VERHOFF, SUZANNE L Referring Unavailable VERHOFF, SUZANNE L Primary Care Unavailable VERHOFF, SUZANNE L Attending Unavailable VERHOFF, SUZANNE L Referring Unavailable VERHOFF, SUZANNE L Primary Care Unavailable Allergies Allergy Classification Reported Allergen(s) Allergy Type Date of Onset Reaction(s) Facility (20 sources) Losartan Drug Allergy 4 Swelling, Rash [place], [place] (20 sources) montelukast; Translations: [montelukast] Drug Allergy 1 Rash, hives, Urticaria (disorder) [place] (2 sources) montelukast; Translations: [Singulair] Drug Allergy 1 [facility] Rep[facility] Medications Current Medications Medication Drug Class(es) Dates Sig (Normalized) Sig (Original) Acetaminophen / oxyCODONE (3 sources) Opioid Agonist Start: 04-21-2011 Tylox 500 mg-5 mg Cap 1 cap(s), Oral, q4hr as needed for pain, 20 tab(s), Refill(s) 0 Start Date: 04/21/11 Status: Ordered Start: 04-21-2011 Tylox 500 mg-5 mg Cap 1 cap(s), Oral, q4hr PRN as needed for pain, 20 tab(s), Refill(s) 0, 0, Print Requisition Start Date: 04/21/11 Status: Ordered [id number] 200 actuat albuterol 0.09 mg/actuat metered dose [...] Discharge) Apo-Fluticasone Propionate 0.05 mg/inh nasal spray (3 sources) Start: 04-15-2011 take 2 spray(s) nasal [...] 1 tablet by mouth daily. 0 Active azelastine hydrochloride 0.206 mg/actuat metered dose nasal spray (1 source) Histamine-1 Receptor Antagonist take 1 spray(s) nasal route once daily azelastine HCl (ASTEPRO) 0.15 % SOLN by Nasal route 1 spray each nostril daily Active azithromycin 250 mg oral tablet (2 [...] Active Start: 08-28-2019 take 1 capsule by [facility] three times daily [...] meq/ml injectable solution (1 source) Start: 06-02-19 25 IntraVENous, at 75 mL/hr, CONTINUOUS, Starting on [...] 0 Active ciprofloxacin 500 mg oral tablet (4 sources) Quinolone Antimicrobial Start: 06-19-2024 Cipro 500 mg Tab See Instructions, Take 1 tab day prior to procedure and 1 tab day of procdure - afterwards, # 2 tab(s), Refills(s) 0, Pharmacy: [facility]/pharmacy #[id number] Start Date: 06/19/24 Status: Ordered Start: 06-03-2023 Cipro 500 mg T ab See Instructions, Take 1 tab day prior to procedure and 1 tab day of procdure - afterwards, # 2 tab(s), Refills(s) 0, Pharmacy: [facility]/pharmacy #[id number] Start Date: 06/03/23 Status: Ordered Start: 03-13-2021 Cipro 500 mg T ab See Instructions, Take 1 tab day prior to procedure and 1 tab day of procdure - afterwards, # 2 tab(s), Refills(s) 0, Pharmacy: [facility]/pharmacy #[id number], 165, cm, 04/03/21 14:42:00 EDT, Height/Length Dosing, 105.9, kg, 04/03/21 14:42:00 EDT, Weight Dosing Start Date: 03/24/22 Status: Ordered docosahexaenoic acid 120 mg / eicosapentaenoic acid 180 mg oral capsule (20 sources) take 1 capsule by mouth once daily [place]-3 Fatty Acids (FISH OIL) 1000 MG CAPS Take 1 capsule by mouth daily Active docosahexaenoic acid 1000 mg / omega-3 acid ethyl esters (jail) 300 mg delayed release oral capsule (3 sources) [place]-3 Fatty Ac ids (FISH OIL) 1000 MG CPDR Take by mouth daily. 0 Active doxycycline monohydrate 100 mg oral capsule (1 source) Tetracycline-clas s Drug Start: 09-29-19 22 take 1 capsule by mouth every twelve [...] morning (before breakfast) 09/30/2023 Active Fish Oils (10 sources) Start: 01-04-20 Fish Oil Oral Start Date: 01/03/19 Status: Ordered take 1 capsule by mouth once nick ly Fish Oil 1000 MG 1 capsule Orally Once a day Active 14 actuat fluticasone furoate 0.1 mg/actuat dry powder inhaler (16 sources) Corticosteroid Start: 03-13-2024 End: 06-02-2024 fluticasone [...] spray 2 sprays by Nasal route daily Active Arnuity Ellipta 100 MCG/ACT inhaler Active glimepiride 4 mg oral tablet (20 sources) Sulfonylurea Start: 09-20-2024 take 1 tablet by mouth once daily in the morning glimepiride (AMARYL) 4 MG tablet TAKE 1 TABLET BY MOUTH EVERY DAY IN THE MORNING 90 tablet 1 09/20/2024 Active Start: 12-09-2023 take 1 tablet by harlan th once [...] BY MOUTH EVERY DAY 90 tablet 1 08/14/2024 Active ipratropium bromide 0.042 mg/actuat metered dose nasal spray (15 sources) Anticholinergic Start: 10-30-2019 take 2 spray(s) nasal route once daily ipratropium (ATROVENT) 0.06 % nasal spray SPRAY 2 SPRAYS INTO EACH NOSTRIL EVERY DAY 1 Bottle 1 10/30/2019 Active Start: 05-12-2018 Ipratropium Br omide 42 mcg (0.06 %) [place],Non-Aerosol Active 2 PERCENT INTRANASAL Every morning May 12, 2018 12:00am take 2 drop(s) nasal route three times daily as needed Ipratropium [place] 0.06 % 2 drops in each nostril as needed Nasally Three times a day for 90 days Active lisinopril 5 mg oral tablet (20 sources) Angiotensin Converting Enzyme Inhibitor Start: 06-04-2023 take 1 tablet by mouth once daily lisinopril 10 MG tablet Take 1 tablet by mouth Daily 06/04/2023 Active Start: 01-03-2019 take 2 tablets by mo [facility] once daily lisinopril 5 mg Tab 10 mg = 2 tab(s), Oral, Daily Start Date: 01/03/19 Status: Ordered Start: 09-19-2018 take 1 tablet by harlan th once daily lisinopril (PRINIVIL;ZESTRIL) 5 MG tablet TAKE 1 TABLET BY MOUTH EVERY DAY 90 tablet 1 08/14/2024 Active loratadine 10 mg oral tablet (13 sources) Start: 05-12-2018 take 1 tablet by mouth once daily loratadine 10 mg Tab 10 mg = 1 tab(s), Oral, Daily Start Date: 01/03/19 Status: Ordered lovastatin 40 mg oral tablet (20 sources) HMG-CoA Reductase Inhibitor Start: 04-15-2011 take 1 tablet by mouth once daily lovastatin (MEVACOR) 40 MG tablet TAKE 1 TABLET BY MOUTH EVERY DAY AT NIGHT 90 tablet 1 08/14/2024 Active magnesium sulfate 0.0277 meq/ml / potassium sulfate 0.0374 meq/ml / sodium sulfate 0.257 meq/ml oral solution (3 sources) Start: 05-11-2024 End: 06-02-2024 wgypep-wjoeyfpif-my g sulfate (SUPREP BOWEL PREP KIT) 17.5-3.13-1.6 GM/177ML SOLN solution Indications: Colon cancer screening Use as directed. 1 each 05/11/2024 06/02/2024 Discontinued (LIST CLEANUP) meloxicam 15 mg oral tablet (20 sources) Nonsteroidal Anti-inflammatory Drug Start: 09-20-2024 take 1 tablet by mouth once daily meloxicam (MOBIC) 15 MG tablet TAKE 1 TABLET BY MOUTH EVERY DAY 90 tablet 1 09/20/2024 Active Start: 08-11-2024 take 1 capsule by [facility] once daily meloxicam 10 mg oral capsule 10 mg = 1 cap(s), Oral, Daily, Refills(s) 0 Start Date: 08/11/24 Status: Ordered Start: 08-19-2017 take 1 tablet by [facility] once daily meloxicam (Mobic) 15 MG tablet Take 1 tablet by mouth Daily 06/30/2023 Active 24 hr metFORMIN hydrochloride 500 mg extended release oral tablet (20 sources) Biguanide Start: 06-03-2023 take 2 tablets by mouth once daily at breakfast metFORMIN (GLUCOPHAGE-XR) 500 MG extended release tablet TAKE 2 TABLETS BY MOUTH EVERY DAY WITH BREAKFAST 180 tablet 1 08/14/2024 Active Start: 06-03-2023 metFORMIN XR ( Glucophage-XR) 500 MG 24 hr tablet 06/03/2023 Active Start: 02-15-2019 take 2 tablets by [...] Start: 05-12-2018 take 1 tablet by harlan once daily metoprolol succinate (TOPROL XL) 25 MG extended release tablet TAKE 1 TABLET BY MOUTH EVERY DAY 90 tablet 1 08/14/2024 Active Multiple Vitamins-Minerals (THERAPEUTIC MULTIVITAMIN-MINERALS) tablet (5 sources) take 1 tablet by mouth once daily Multiple Vitamins-Minerals (THERAPEUTIC MULTIVITAMIN-MINERALS) tablet Take 1 tablet by mouth daily. 0 Active Multiple Vitamins-Minerals ( ZINC PO) (11 sources) Multiple Vitamin s-Minerals (ZINC PO) Take by mouth Active Multiple Vitamin s-Minerals (ZINC PO) Take by mouth 0 Active Ntastulh-Zuv-Lppu-Fa-Vit K-Lut (Multivitamin Women 50 Plus) 8 mg iron-400 mcg-300 mcg Tablet (3 sources) Start: 03-09-2019 take 1 tablet by mouth once daily Lrzwitrn-Mjv-Swcv-Fa-Vit K-Lut (Multivitamin Women 50 Plus) 8 mg iron-400 mcg-300 mcg Tablet Active 1 TAB PO Daily March 08, 2019 11:00pm Start: 03-09-2019 take 1 tablet by harlan th once daily Bijaynib-Odj-Bbgu-Fa-Vit K-Lut (Multivitamin Women 50 Plus) 8 mg iron-400 mcg-300 mcg Tablet Active 1 TAB PO Daily March 09, 2019 12:00am Multivitamins (7 sources) take 1 tablet by mouth once daily Multivitamins 1 tab(s) Orally Daily Active Multivitamins and Minerals (3 sources) Start: 04-15-2011 Multivitamins and Minerals Refill(s) 0 Start Date: 04/15/11 Status: Ordered [place] 7-Hab-Rkt-Fish Oil (Fish Oil) 300-1,000 mg Capsule,Delayed Release(Dr/Ec) (3 sources) Start: 05-12-2018 take 300-1000 mg by mouth once daily [place] 5-Ias-Kfk-Fish Oil (Fish Oil) 300-1,000 mg Capsule,Delayed Release(Dr/Ec) Active 1 CAP PO Daily May 12, 2018 12:00am Start: 05-12-2018 take 300-1000 mg by mouth once daily [place] 9-Tuq-Uqo-Fish Oil (Fish Oil) 300-1,000 mg Capsule,Delayed Release(Dr/Ec) [...] mg/mg oral paste (2 sources) Corticosteroid Start: 9 triamcinolone acetonide (KENALOG) 0.1 % paste [...] 2018 12:00am take 1 capsule by mouth once nick ly alpha tocopherol (Vitamin E) 400 units capsule Take 1 capsule by mouth Daily Active take 1 capsule by mouth in the m orning alpha tocopherol (Vitamin E) 400 units capsule Take 1 capsule by mouth in the morning. Active Vitamin E 400 UNIT (7 sources) take 1 tablet by harlan th once daily Vitamin E 400 UNIT 1 tablet Orally Once a day Active Zinc (10 sources) ZINC PO Take by mouth Active zinc gluconate 50 mg oral tablet (10 sources) take 1 tablet by harlan th once daily zinc gluconate 50 MG tablet Take 50 mg by mouth Daily Active Completed/Discontinued Medications Medication Drug Class(es) Dates [...] mL docusate sodium 50 mg oral capsule (13 sources) Start: 01-04-2019 End: 09-23-2023 take 1 [...] inhaler Discontinued 2 PUFF INHALATION Twice daily September 30, 2023 12:00am December 09, 2023 11:00am Ursrcwli-Hur-Koxzzpd Fumarate (Multi Vitamin) 9 mg iron/15 mL Liquid (3 sources) Start: 05-12-2018 End: 03-09-2019 take 1 tablet by mouth once daily Iyuugwwn-Sth-Heszzwp Fumarate (Multi Vitamin) 9 mg iron/15 mL Liquid Discontinued 1 TAB PO Daily May 12, 2018 12:00am March 09, 2019 7:36am Start: 05-12-2018 End: 03-09-2019 take 1 tablet by mouth once daily Zhhycxdb-Eeb-Cqtbcci Fumarate (Multi Vitamin) 9 mg iron/15 mL [...] PRN, 1 dose, Starting on Wed06/22/24 at 1238, Until Wed06/22/24 at 1239, Other, Once activated, final concentration [...] dose, Starting on Wed06/22/24 at 0837, Until [facility] 06/22/24 at 1016, Other, Only to be given in Nuclear Med during CARDIAC STRESS TEST ONLY. 5 ml sodium chloride 9 mg/ml injection (4 sources) Start: 06-22-2024 End: 06-22-2024 10 mL, IntraVENous, PRN, Starting on [facility] 06/22/24 at 0837, Until [facility] 06/22/24 at 1436, Line Care, FOR USE IN [...] 0957, Other Vitamin E 400 unit(s) Cap (3 sources) Start: 04-15-2011 take 1 capsule by [...] Translations: [Cough variant asthma] Onset: 03-14-2011 Resolved: 07-24-2024 02-28-2015 Chronic Biliary tract disease (3 sources) Calculus of gallbladder with cholecystitis 11-17-2013 Episodic Cancer; other and unspecified primary (3 sources) History of bladder neoplasm 01-03-2019 Episodic Cardiac dysrhythmias (2 sources) Cardiac arrhythmia; Translations: [Cardiac arrhythmia, unspecified] 06-08-2024 Chronic Conduction disorders (3 sources) Sinus node dysfunction; [...] disorder] Onset: 03-14-2011 03-14-2011 Chronic Menopausal disorders (19 sources) Postmenopausal bleeding; Translations: [Postmenopausal bleeding] Onset: 06-02-2013 06-02-2013 Chronic Mycoses (1 source) Onychomycosis; Translations: [Tinea unguium] 09-13-2024 Episodic Other lower respiratory disease (6 sources) Chronic cough; Translations: [Cough] Episodic Other lower respiratory disease (1 source) Respiratory tract infection; Translations: [Other specified respiratory disorders] 06-08-2024 Episodic Other lower respiratory disease (1 source) Other specified respiratory disorders; Translations: [Other diseases of respiratory system, not elsewhere classified] 06-08-2024 Episodic Other lower respiratory disease (2 sources) Dyspnea; Translations: [Shortness of breath] 06-22-2024 Episodic Other nervous system disorders (1 [...] Chronic Other nutritional; endocrine; and metabolic disorders (10 sources) Severe obesity; Translations: [Morbid (severe) obesity due to excess calories] Onset: 10-13-2022 10-13-2022 Chronic Other upper respiratory disease (20 sources) Allergic [...] Hypersomnia, unspecified; Translations: [Hypersomnia, unspecified] 06-08-2024 Chronic Residual codes; unclassified (1 source) Primary central sleep apnea; Translations: [Primary central sleep apnea] Onset: 10-03-2024 10-03-2024 Chronic Spondylosis; intervertebral disc disorders; other back problems (11 sources) Degeneration of lumbar intervertebral disc; Translations: [...] Resolved: 10-13-2022 03-14-2011 Chronic Cancer of bladder (10 sources) H/O: malignant neoplasm; Translations: [Personal history of malignant neoplasm of bladder] Onset: 07-13-2023 07-13-2023 Episodic Cardiac dysrhythmias (3 sources) Sinus bradycardia; Translations: [Bradycardia, unspecified] Onset: 06-02-2024 06-02-2024 Episodic Diabetes mellitus without complication (19 sources) Impaired fasting glycaemia; Translations: [Impaired fasting glucose] Onset: 03-14-2011 Resolved: 04-12-2018 04-12-2018 Episodic Diseases of white blood cells (14 sources) Familial eosinophilia; 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] Onset: 03-17-2024 Resolved: 03-17-2024 09-30-2023 Chronic Immunizations and screening for infectious disease (1 source) Contact with and (suspected) exposure to other viral communicable diseases Onset: 09-28-2021 Resolved: 09-28-2021 Episodic Nonmalignant breast conditions (19 sources) Red breast; Translations: [Erythematous condition, unspecified] Onset: 08-14-2014 Resolved: 04-12-2018 04-12-2018 Episodic Nonspecific chest pain (3 sources) Chest pain; Translations: [Chest pain, unspecified] Onset: 06-22-2024 06-22-2024 Episodic Other and unspecified benign neoplasm (19 sources) History of polyp of colon; Translations: [Personal history of colonic polyps] Onset: 06-02-2013 06-02-2013 Episodic Other lower respiratory disease (1 source) Shortness of breath; Translations: [Shortness of breath] Onset: 06-22-2024 Episodic Other nervous system disorders (19 sources) Burning sensation; Translations: [Other disturbances of skin sensation] Onset: 08-14-2014 Resolved: 04-12-2018 04-12-2018 Episodic Other nutritional; endocrine; and metabolic disorders (11 sources) Body mass index 30+ - obesity; Translations: [Body mass index (BMI) 39.0-39.9, adult] Onset: 03-17-2024 Resolved: 03-17-2024 12-09-2023 Chronic Other nutritional; endocrine; and metabolic disorders (11 sources) Obesity; Translations: [Obesity, unspecified] Onset: 03-17-2024 Resolved: 03-17-2024 09-30-2023 Chronic Other screening for suspected conditions (not mental disorders or infectious disease) (3 sources) Patient encounter status; Translations: [Encounter for screening mammogram for malignant neoplasm of breast] Onset: 05-22-2024 Episodic Other upper respiratory disease (11 sources) Deviated nasal septum; Translations: [Deviated nasal septum] Onset: 07-09-2023 07-09-2023 Episodic Other upper respiratory infections (20 sources) Acute sinusitis; Translations: [Acute laryngitis] Onset: 07-04-2012 07-04-2012 Episodic Unclassified (3 sources) Cough R05.9 Onset: 09-06-2021 Resolved: 09-06-2021 Unclassified (1 source) Persistent cough for 3 weeks or longer R05.3 Onset: 09-28-2021 Resolved: 09-28-2021 Unclassified (10 sources) Onset: 04-12-2024 04-12-2024 Viral infection (1 source) COVID-19 Results Test Name Value Interpretation Reference Range Facility Albumin/Creat Ratio, Urineon 10-17-2024 Albumin,conc.[place] U <12 Normal 0-20 [facility] Comment on above: Performed By: #### U RNMAB #### [facility] [address] [place] [id number] Press T[employer] Smoke Signal: Nelson Mckenzie MD Albumin/Creat Ratio Can not be calculated Normal 0.0-25.0 [facility] Comment on above: Performed By: #### U RNMAB #### [employer] [address] [place] [address] [phone] Press T[employer] Smoke Signal: Nelson Mckenzie MD Creatinine Conc. 99.7 mg/dL Normal 28.0-217.0 [facility] Comment on above: Result Comment: Refe rence range defined for 1st morning urine Performed By: #### U RNMAB #### [facility] [employer] [address] [place] [id number] Press Tender Smoke Signal: Nelson Mckenzie MD Albumin/Creatinine Ratio, Ur ineon 10-17-2024 Albumin DL <= 20 mg/L (U) [Mass/Vol] mg/L 0 - 20 mg/L [facility] Albumin/Creatinine DL <= 20 mg/L (U) [Ratio] Can not be calculated [facility] Creatinine (U) [Mass/Vol] 99.7 mg/dL 28.0 - 217.0 mg/dL [facility] Comment on above: Reference range defi steven for 1st morning urine [facility] Comp Metabolic Profon 2024 Albumin [Mass/Vol] 3.9 g/dL Normal 3.5-5.2 [facility] Comment on above: Performed By: #### C P #### [facility] [address] [place], [place] [phone] [employer] Smoke Signal: Naldo Tinsley MD #### LIPR, GLYHGB #### [facility] [address] [place], [place] [phone] [employer] Signal: Nelson Mckenzie MD Albumin/Glob Ratio 1.3 Normal 1.0-2.5 [facility] Comment on above: Performed By: #### C P #### [facility] [address] [place], [place] [phone] [employer] Sm[employer] Signal: Naldo Tinsley MD #### LIPR, GLYHGB #### [facility] [address] [place], [place] [phone] [employer] Signal: Nelson Mckenzie MD Alkaline Phos 55 U/L Normal 35-104 [facility] Comment on above: Performed By: #### C P #### [facility] [address] [place], [place] [phone] [employer] Smoke Signal: Naldo Tinsley MD #### LIPR, GLYHGB #### [facility] [address] [place] [address] [employer] Signal: Nelson Mckenzie MD ALT [Catalytic activity/Vol] 18 U/L Normal 5-33 [facility] Comment on above: Performed By: #### C P #### [facility] [address] [place], [place] [phone] [employer] Sm[employer] Signal: Naldo Tinsley MD #### LIPR, GLYHGB #### [facility] [address] [place] [address] [employer] Sm[employer] Signal: Nelson Mckenzie MD Anion gap [Moles/Vol] 11 mmol/L Normal 9-17 [facility] Comment on above: Performed By: #### C P #### [facility] [address] [place] [address] [employer] Sm[employer] Signal: Naldo Tinsley MD #### LIPMatt GLYHGB #### [facility] [address] [place] [address] [employer] Signal: Nelson Mckenzie MD AST [Catalytic activity/Vol] 22 U/L Normal <32 [facility] Comment on above: Performed By: #### C P #### [facility] [address] [place] [address] [employer] Signal: Naldo Tinsley MD #### MIKE GLYHGB #### [address] [address] [employer] Smoke Signal: Nelson Mckenzie MD Bilirubin [Mass/Vol] 0.5 mg/dL Normal 0.3-1.2 [facility] Comment on above: Performed By: #### C P #### [facility] [address] [place] [address] [employer] Smoke Signal: Naldo Tinsley MD #### LIPMatt GLYHGB #### [address] [address] [employer] Signal: Nelson Mckenzie MD Calcium [Mass/Vol] 9.8 mg/dL Normal 8.6-10.4 [facility] Comment on above: Performed By: #### C P #### [facility] [address] [place] [address] [employer] Signal: Naldo Tinsley MD #### LIPR, GLYHGB #### [address] [phone] [employer] Signal: Nelson Mckenzie MD Chloride [Moles/Vol] 101 mmol/L Normal 98-107 [facility] Comment on above: Performed By: #### C P #### [facility] [address] [place], [place] [phone] [employer] Signal: Naldo Tinsley MD #### LIPR, GLYHGB #### [facility] [address] [place], [place] [phone] [employer] Signal: Nelson Mckenzie MD CO2 [Moles/Vol] 25 mmol/L Normal 20-31 [facility] Comment on above: Performed By: #### C P #### [facility] [address] [place] [address] [employer] Smoke Signal: Naldo Tinsley MD #### LIPR, GLYHGB #### [address] [phone] [employer] Signal: Nelson Mckenzie MD Creatinine [Mass/Vol] 0.8 mg/dL Normal 0.5-0.9 [facility] Comment on above: Performed By: #### C P #### [facility] [address] [place] [address] [employer] Smoke Signal: Naldo Tinsley MD #### LIPR, GLYHGB #### [address] [phone] [employer] Signal: Nelson Mckenzie MD GFR/1.73 sq M.predicted among non-blacks MDRD (S/P/Bld) [Vol rate/Area] 80 mL/min/{1.73_m2} Normal >60 [facility] Comment on above: Result Comment: These [...] secretion. Performed By: #### C P #### [facility] [address] [place], [place] [phone] [employer] Smoke Signal: Naldo Tinsley MD #### LIPR, GLYHGB #### [place] [address] [place], [place] [phone] [employer] Signal: Nelson Mckenzie MD Glucose [Mass/Vol] 150 mg/dL High 70-99 [facility] Comment on above: Performed By: #### C P #### [facility] [address] [place], [place] [phone] [employer] Smoke Signal: Naldo Tinsley MD #### LIPMatt, GLYHGB #### [address] [address] [employer] Signal: Nelson Mckenzie MD Potassium [Moles/Vol] 4.4 mmol/L Normal 3.7-5.3 [facility] Comment on above: Performed By: #### C P #### [facility] [address] [place], [place] [phone] [employer] Smoke Signal: Naldo Tinsley MD #### LIPMatt, GLYHGB #### [address] [address] [employer] Smoke Signal: Nelson Mckenzie MD Protein [Mass/Vol] 7.0 g/dL Normal 6.4-8.3 [facility] Comment on above: Performed By: #### C P #### [facility] [address] [place], [place] [phone] [employer] Smoke Signal: Naldo Tinsley MD #### LIPR, GLYHGB #### [address] [address] [employer] Signal: Nelson Mckenzie MD Sodium [Moles/Vol] 137 mmol/L Normal 135-144 [facility] Comment on above: Performed By: #### C P #### [facility] [address] [place] [address] Press T[employer] Smoke Signal: Naldo Tinsley MD #### LIPR, GLYHGB #### [facility] [address] [place], [place] [phone] Press [employer] Smoke Signal: Nelson Mckenzie MD Urea nitrogen [Mass/Vol] 21 mg/dL Normal 8-23 [facility] Comment on above: Performed By: #### C P #### [facility] [address] [place], [place] [phone] Press [employer] Smoke Signal: Naldo Tinsley MD #### LIPMatt, GLYHGB #### [facility] [address] [place], [place] [phone] Press T[employer] Smoke Signal: Nelson Mckenzie MD [facility] Metabolic Pane [facility] 10-17-2024 Albumin [Mass/Vol] 3.9 g/dL 3.5 - 5.2 g/dL [facility] Albumin/Globulin [Mass ratio] 1.3 {ratio} 1.0 - 2.5 [facility] ALP [Catalytic activity/Vol] 55 U/L 35 - 104 U/L [facility] ALT [Catalytic activity/Vol] 18 U/L 5 - 33 U/L [facility] Anion gap [Moles/Vol] 11 mmol/L 9 - 17 mmol/L [facility] AST [Catalytic activity/Vol] 22 U/L NINF - 32 U/L [facility] Bilirubin [Mass/Vol] 0.5 mg/dL 0.3 - 1 .2 mg/dL [facility] Calcium [Mass/Vol] 9.8 mg/dL 8.6 - 10. 4 mg/dL [facility] Chloride [Moles/Vol] 101 mmol/L 98 - 10 7 mmol/L [facility] CO2 [Moles/Vol] 25 mmol/L 20 - 31 mmol/L [facility] Creatinine [Mass/Vol] 0.8 mg/dL 0.5 - 0.9 mg/dL [facility] Est, Glom Filt Rate 80 - PINF [facility] Comment on above: These results are not [...] that affects renal tubular secretion. Glucose [Mass/Vol] 150 mg/dL High 70 - 99 mg/dL [facility] Interpretation and review of laboratory results Abnormal [facility] Potassium [Moles/Vol] 4.4 mmol/L 3.7 - 5.3 mmol/L [facility] Protein [Mass/Vol] 7 g/dL 6.4 - 8.3 g/dL [facility] Sodium [Moles/Vol] 137 mmol/L 135 - 144 mmol/L [facility] Urea nitrogen [Mass/Vol] 21 mg/dL 8 - 23 mg/dL [facility] Hemoglobin A1Con 10-17-2024 Average glucose Estimated from glycated hemoglobin (Bld) [Mass/Vol] 197 mg/dL [facility] Comment on above: The ADA and AACC rec ommend providing the estimated average glucose result to permit better patient understanding of their HBA1c result. HbA1c (Bld) [Mass fraction] 8.5 % High 4.0 - 6.0 % [facility] Interpretation and review of laboratory results Abnormal [facility] Glucose [Mass/Vol] 197 mg/dL Normal [facility] Comment on above: Result Comment: The ADA and AACC recommend providing the estimated average glucose result to permit better patient understanding of their HBA1c result. Performed By: #### C P #### [facility] [address] [place] [address] [employer] Smoke Signal: Naldo Tinsley MD #### LIPR, GLYHGB #### [facility] [employer] [address] [place] [address] Press Tender Smoke Signal: Nelson Mckenzie MD HbA1c (Bld) [Mass fraction] 8.5 % High 4.0-6.0 [facility] Comment on above: Performed By: #### C P #### [facility] [address] [place], [place] [phone] Press [employer] Smoke Signal: Naldo Tinsley MD #### LIPR, GLYHGB #### [facility] [address] [place] [address] Press Tender Smoke Signal: Nelson Mckenzie MD Lipid Panelon 10-17-2024 Cholesterol [Mass/Vol] 159 mg/dL 0 - 1 99 mg/dL [facility] Comment on above: Cholesterol Guidelines: <200 Desirable 200-240 Borderline >240 Undesirable Cholesterol in HDL [Mass/Vol] 55 mg/dL 40 - PINF mg/dL [facility] Comment on above: HDL Guidelines: <40 Undesirable 40-59 Borderline >59 Desirable Cholesterol in LDL [Mass/Vol] 80 mg/dL 0 - 100 mg/dL [facility] Comment on above: LDL Guidelines: <100 Desirable 100-129 Near to/above Desirable 130-159 Borderline >159 Undesirable Direct (measured) LDL and calculated LDL are not interchangeable tests. Cholesterol in VLDL [Mass/Vol] 24 mg/dL 1 - 30 mg/dL [facility] Cholesterol.total/Chol esterol in HDL [Mass ratio] 2.9 {ratio} NINF - 5.0 [facility] Triglyceride [Mass/Vol] 118 mg/dL NINF - 150 mg/dL [facility] Comment on above: Triglyceride Guidelines: <150 Desirable 150-199 Borderline 200-499 High >499 Very high Based on AHA Guidelines for fasting triglyceride, February 2012. [facility] Lipid Profileon 10-17-2024 Cholesterol [Mass/Vol] 159 mg/dL Normal 0-199 [facility] Comment on above: Result Comment: Cholesterol Guidelines: <200 Desirable 200-240 Borderline >240 Undesirable Performed By: #### C P #### [facility] [address] [place] [address] Press T[employer] Smoke Signal: Naldo Tinsley MD #### LIPR, GLYHGB #### [facility] [address] [place] [address] Press [employer] Smoke Signal: Nelson Mckenzie MD Cholesterol in HDL [Mass/Vol] 55 mg/dL Normal >40 [facility] Comment on above: Result Comment: HDL Guidelines: <40 Undesirable 40-59 Borderline >59 Desirable Performed By: #### C P #### [facility] [address] [place], [place] [address] Press T[employer] Smoke Signal: Naldo Tinsley MD #### LIPR, GLYHGB #### [facility] [address] [place] [address] Press Tender Smoke Signal: Nelson Mckenzie MD Cholesterol in LDL [Mass/Vol] 80 mg/dL Normal 0-100 [facility] Comment on above: Result Comment: LDL Guidelines: <100 Desirable 100-129 Near to/above Desirable 130-159 Borderline >159 Undesirable Direct (measured) LDL and calculated LDL are not interchangeable tests. Performed By: #### C P #### [facility] [address] [place], [place] [phone] [employer] Smoke Signal: Naldo Tinsley MD #### LIPMatt, GLYHGB #### [address] [address] [employer]oke Signal: Nelson Mckenzie MD Cholesterol in VLDL [Mass/Vol] 24 mg/dL Normal 1-30 [facility] Comment on above: Performed By: #### C P #### [facility] [address] [place], [place] [phone] [employer] Smoke Signal: Naldo Tinsley MD #### LIPR, GLYHGB #### [facility] [address] [place] [address] Press T[employer] Smoke Signal: Nelson Mckenize MD Cholesterol.total/Chol esterol in HDL [Mass ratio] 2.9 {ratio} Normal <5.0 [facility] Comment on above: Performed By: #### C P #### [facility] [address] [place] [address] Press Tender Smoke Signal: Naldo Tinsley MD #### MIKE GLYHGB #### [facility] [address] [place] [address] Press Tender Smoke Signal: Nelson Mckenzie MD Triglyceride [Mass/Vol] 118 mg/dL Normal <150 [facility] Comment on above: Result Comment: Triglyceride Guidelines: <150 Desirable 150-199 Borderline 200-499 High >499 Very high Based on AHA Guidelines for fasting triglyceride, February 2012. Performed By: #### C P #### [facility] [address] [place] [address] Press Tender Smoke Signal: Naldo Tinsley MD #### MIKE GLYHGB #### [facility] [employer] [address] [place] [address] Press Tender Smoke Signal: Nelson Mckenzie MD [facility] Fish and Urine Cyt o ([facility])on 08-18-2024 UVFISH & UC Diagnosis Info Invalid Interpretation Code [facility] Comment on above: Result Comment: A:Ur ine,Urine:Voided Diagnosis Summary - Clusters of urothelial cells with mild atypia; as voided urine, low grade papillary 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 Clinical correlation is indicated. Adequate cellularity for evaluation. Diagnosis Summary - The [facility] FISH study detected normal copy numbers for chromosomes 3, 7, 17, and 9p21. 200 cells were analyzed in this evaluation. No evidence of aneuploidy for chromosomes 3, 7, or 17 or deletion of the 9p21 locus was found in cells present in this specimen. This test does not rule out the possibility of a low grade non-invasive papillary urothelial carcinoma. These findings should be correlated with cytology and cystoscopy results. * CPT: 22285, 93725. 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 Electronically signed by : on: 08/18/2024 10:00:31 Performed By: #### 1 [id number] #### [facility] [address] [place] [address] Inpatient Patient Summaryon 08-11-2024 Inpatient Patient Summary Inpatient Patient Summary [address] [address] Clinical Summary Person Information Name: KATHRYN GIORDANO Age: 69 Years : 1955 Sex: Female PCP: SUZANNE DOUGLAS MD Marital Status: Race: White Ethnicity: Non- or Language: Belarusian Visit Id: Visit Reason: BLADDER CANCER Speciality: Acuity: Enc Type: Outpatient Med Service: Surgery Arrival: 08/11/2024 10:16:16 Discharge: Dispo Type: Address: [address] [place] [address] [address] [facility] [id number] Provider Notes: Diagnosis: Problems Active History of bladder cancer Smoking Status: Functional Status: Sensory Deficits: History of Falls: Mobility Assistance Prior to Admission: ADLs: Current Level of Assistance for Self-Care/Mobility: Cognitive Status: Allergies Singulair () Laboratory or Other Results This Visit (last charted value for your 08/11/2024 visit) No Laboratory or Other Results This Visit Measurements: Height: 163 cm Weight: 105 kg Blood Pressure: Not Valued / Not Valued BMI: 39.52 kg/m2 Procedures No Procedures Documented Immunizations No Immunizations [...] every day. lisinopril (lisinopril 5 mg Tab) 2 Tablets By Mouth every day. loratadine (loratadine 10 mg Tab) 1 Tablets By Mouth every day. lovastatin (lovastatin 40 mg Tab) 1 Tablets By Mouth every day. meloxicam (meloxicam 10 mg oral capsule) 1 Capsules By Mouth every day. metformin (metformin 500 [...] Follow up: With: Address: When: Freddy KRAUS [address] [place] [address], [address], [place] [address] [facility] (1) Comments: Your bladder showed no abnormalities! Will plan on repeat bladder scope in about one year. Have a great day! Patient Education Information: EU - Cystoscopy Discharge Instructions (Custom) [facility] Main OR Intraoperative Recor don 08-11-2024 Main OR Intraoperative Record Main OR Intraoperative Record IntraOp Document Type FTURO Summary Primary Physician: Freddy KRAUS MD Finalized Date/Time: 08/11/24 10:59:26 Pt. Name: KATHRYN GIORDANO/Sex: 1955 Female Med Rec #: [id number] Physician: Freddy KRAUS MD Financial #: [id number] Pt. Type: O Room/Bed: / Admit/Disch: 08/11/24 10:16:16 - Institution: Case Times FTURO Entry 1 Patient Times In Room 08/11/24 10:50:00 Out Room 08/11/24 11:00:00 Procedure Times Start 08/11/24 10:52:00 Stop 08/11/24 10:56:00 Anesthesia Times Last Modified By: Yakelin Mandel RN 08/11/24 10:56:38 Case Attendance FTURO Entry 1 Entry 2 Entry 3 Case Attendee Freddy KRAUS MD, RN, Kinga Gutierrez Role Performed Surgeon - Primary Emblem Cutter - Primary Scrub - Primary Time In 08/11/24 10:50:00 08/11/24 10:50:00 08/11/24 10:50:00 Time Out 08/11/24 11:00:00 08/11/24 11:00:00 08/11/24 11:00:00 Procedure CYSTOSCOPY LOCAL(.) CYSTOSCOPY LOCAL(.) CYSTOSCOPY LOCAL(.) Comments Last Modified By: Tequila PARIS, Yakelin Mandel RN, Yakelin Mandel RN, Yakelin Paris 08/11/24 Sanjuanita Paris 08/11/24 Sanjuanita Paris 08/11/24 10:56:41 10:56:41 10:56:41 Surgical Procedures FTURO Entry 1 Procedure Description Procedure CYSTOSCOPY LOCAL Modifiers . Surgeon Description CYSTOSCOPY WITH FISH & CYTOLOGY Primary Procedure Yes Primary Surgeon Freddy KRAUS MD Start 08/11/24 10:52:00 Stop 08/11/24 10:56:00 Anesthesia Type Local Surgical Service Urology Wound Class 2 - Clean-Contaminated Last Modified By: Tequila PARIS, Yakelin Paris 08/11/24 10:56:40 General Case Data FTURO Pre-Care Text: Classifies surgical wound, implements aseptic technique, initiates traffic control Entry 1 Case Information OR URO 1 FT Case Level None Wound Class 2 - Clean-Contaminated Specialty Urology Preop Diagnosis BLADDER CANCER Postop Same As Preop Yes Postop Diagnosis BLADDER CANCER Outcomes Met? Yes Last Modified By: Tequila PARIS, Yakelin Paris 08/11/24 10:54:03 Post-Care Text: The patient is free from [...] 2): Participation Consents / H and P H&P, Surgery/Procedure Operative Site N/A Verified Consent Marking Verified Surgical Site Yes Laterality Verified n/a Verified Procedure Verified Yes Correct Patient Yes Position Verified Availability Equipment, Medication Time Out Freddy KRAUS MD, Verified (If Participants Yakelin Mandel RN Applicable) Trevor Gee Laura C Time Out Complete 08/11/24 10:50:00 Allergies Reviewed? Yes Allergies Reviewed Self/Patient With Body Position Low Lithotomy Prep Area PERINEAL AREA Prep Agents Betadine Solution Skin. Condition Unable to Visualize Description PARTIALLY CLOTHED AND DRAPED Additional FISH Specimens Comment AND CYTOLOGY Specimens Collected Vitals - EU Blood Pressure 166/82 Pulse 68 bpm Respirations 18 br/min SPO2 97 % I&O - EU Outcomes Met? Yes Last Modified By: Yakelin Mandel RN 08/11/24 10:55:28 Post-Care Text: The patient is free from signs and symptoms of injury caused by extraneous objects Sign Out FTURO Entry 1 Before Patient Leaves OR Nurse verbally Yes Nurse verbally Yes confirms with the confirms with the team the name of team that the procedure(s) instrument, sponge, recorded and needle counts are correct (or N/A) Nurse verbally Yes Nurse verbally n/a confirms with the confirms with the team how the team whether there specimen is labeled are any equipment (including patient problems to be name), if applicable addressed Sign Out Complete 08/11/24 10:56:00 Last Modified By: Yakelin Mandel RN 08/11/24 10:56:40 Case Comments Finalized By: Yakelin Mandel RN Document Signatures Signed By: Yakelin Mandel RN 08/11/24 10:59 Normal [facility] Main OR Preoperative Recordo n 08-11-2024 Main OR Preoperative Record Main OR Preoperative Record Holding Area Document Type FTURO Summary Primary Physician: Freddy KRAUS MD Finalized Date/Time: 08/11/24 10:46:23 Pt. Name: KATHRYN GIORDANO/Sex: 1955 Female Med Rec #: [id number] Physician: Freddy KRAUS MD Financial #: [id number] Pt. Type: O Room/Bed: / Admit/Disch: 08/11/24 10:16:16 - Institution: Case Times Holding FTURO Pre-Care Text: Verifies consent for planned procedure, identifies individual values and wishes concerning care, includes family members in perioperative teaching Secures patient's records' belongings, and valuables, maintains patient's dignity and privacy, and maintains patient confidentiality Entry 1 In Holding 08/11/24 10:37:00 Outcomes Met? Yes Last Modified By: Eliza Jose 08/11/24 10:38:02 Post-Care Text: The patient participates in decisions affecting his or her perioperative plan of care The patient's right to privacy is maintained Surgery Checklist FTURO Entry 1 Patient Birthday, ID Band Procedure History and Physical, Identification: Check, Patient Verification: Surgical Consent, With Participation Patient NPO after Midnight: n/a Date/Time: 08/11/24 10:37:00 Personal Items: Glasses Personal Items CLOTHES,SHOES AND PURSE Comment: Limitations: N/A Complaints of Pain: No Pain Comment: NONE Skin Integrity Intact, [place], Warm, & Dry Vitals - EU Blood Pressure 166/82 Pulse 68 bpm Respirations 18 br/min SPO2 97 % Additional FISH, Other (See Specimens Comment FISH AND CYTOLOGY Specimens Collected Comment) Residual Amount - 0 RN Reviewed Yes Post Void Last Modified By: Eliza Jose 08/11/24 10:40:16 Finalized By: Eliza Jose Document Signatures Signed By: Eliza Jose 08/11/24 10:40 Eliza Jose 08/11/24 10:40 Eliza Jose 08/11/24 10:46 Normal [facility] Operative Reporton Operative Report Operative Report Patient: KATHRYN GIORDANO Age: 69 years Sex: Female : 1955 Associated Diagnoses: None Author: Freddy KRAUS MD Procedure Operative Information Details: Date/ Time: 08/11/2024 11:00:00. 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 Post-Op Dx: Same. Anesthesia [...] The Bladder is: Normal, Trabeculated Mild (1), Old scar. No tumor recurrence. . The ureteral orifices: Show efflux of clear urine. Specimens Removed: Bladder wash sent for FISH and Cytology test. Devices Implanted: None. Removal: Cystoscope is removed, The patient tolerated it well. Postoperative Information Discharge: Patient is discharged home with antibiotic coverage, Follow up arranged, Plan for one year cystoscopy. . Normal [facility] Comment on above: Result Comment: Elec tronically Signed By: Freddy KRAUS MD\.br\Date and Time Signed: 08/11/24 11:01 EDT Outpatient Surgery Discharge Instructionon 08-11-2024 Outpatient Surgery Discharge Instruction Outpatient Surgery Discharge Instruction [address] [address] Patient Discharge Instructions PERSON INFORMATION Name: KATHRYN GIORDANO Date of : 1955 Current Date: 08/11/2024 10:59:59 PHYSICIANS Admitting Physician: Freddy KRAUS MD Comment: Discharge Diagnosis: KATHRYN GIORDANO has been given the following list of follow-up instructions, prescriptions, and patient education materials: IF UNABLE TO CONTACT YOUR PHYSICIAN AND YOU FEEL IT IS AN EMERGENCY, GO TO THE NEAREST EMERGENCY ROOM OR CALL 911 Follow up: With: Address: When: Freddy KRAUS [address] [place] [address], [address], [place] [id number] [facility] (1) Comments: Your bladder showed no abnormalities! Will plan on repeat bladder scope in about one year. Have a great day! Comment: PATIENT EDUCATION INFORMATION Instructions: Cystoscopy ??? Voiding after the procedure: there may be some pain, burning, urgency, frequency and blood tinged urine following the procedure. These symptoms usually resolve within 2-5 days. Drink the amount of fluid it takes to keep the urine pink to yellow or clear in color. Drinking enough water and fluids will help to ease any discomfort after your procedure. ??? If you are having problems that seem out of the ordinary, please call. ??? If unable to contact your physician and you feel it is an emergency, go to the nearest emergency room or call 911 ??? Diet ??? you may resume your normal diet. ??? Activity ??? you may resume your normal activities ??? Call if you have a fever over [...] you, your loved ones and our community. It???s an honor to serve you. Thank you for choosing [facility] Normal [facility] Fish and Urine Cyt o ([facility])on 08-11-2024 [facility] Method of Extraction Voided Normal [facility] Comment on above: Performed By: #### 1 [id number] #### [facility] [address] [place] [address] [facility] Number of Jars 1 Invalid Interpretation Code [facility] Comment on above: Performed By: #### 1 [id number] #### [facility] [address] [place] [address] [facility] Specimen Urine Normal [facility] Comment on above: Performed By: #### 1 [id number] #### [facility] [address] [place] [address] [facility] Type of Service Technical Only Normal [facility] Comment on above: Performed By: #### 1 [id number] #### [facility] [address] [place] [address] No Panel InformationOrdered By: Bao Vaughn on 06-22-2024 Baseline Diastolic BP 70 mmHg [employer] Work Phone: Baseline HR 72 BPM [employer] Work Phone: Baseline Systolic BP 151 mmHg [employer] Work Phone: Nuc Stress EF 77 % [email or web address] Work Phone: Stress Diastolic BP 70 mmHg [place] [employer] Work Phone: Stress Estimated Workload 1.0 METS [email or web address] Work Phone: Stress Peak HR 91 BPM [place] [employer] Work Phone: Stress Percent HR Achieved 60 % [employer] Work Phone: Stress Rate Pressure Product [address]376 BPM*mmHg [employer] Work Phone: Stress Systolic BP 151 mmHg [place] [employer] Work Phone: Stress Target HR 152 bpm [place] [employer] [place] [employer] Work Phone: TID 1.05 [employer] Work Phone: [facility] Work Phone: No Panel Informationon 06-22 Stress [...] The study is positive for myocardial ischemia. [facility] CV [facility] STRESS Radiology Study observation (narrative) [facility] [place] [employer] Basic Metabolic Panelon Anion gap [Moles/Vol] 11 mmol/L 9 - 17 mmol/L [facility] Calcium [Mass/Vol] 9.5 mg/dL 8.6 - 10. 4 mg/dL [facility] Chloride [Moles/Vol] 100 mmol/L 98 - 10 7 mmol/L [facility] CO2 [Moles/Vol] 26 mmol/L 20 - 31 mmol/L [facility] Creatinine [Mass/Vol] 0.7 mg/dL 0.5 - 0.9 mg/dL [facility] Est, Glom Filt Rate - PINF [facility] [employer] Comment on above: These results are not [...] 185 mg/dL High 70 - 99 mg/dL [facility] Interpretation and review of laboratory results Abnormal [facility] Potassium [Moles/Vol] 3.8 mmol/L 3.7 - 5.3 mmol/L [facility] Sodium [Moles/Vol] 137 mmol/L 135 - 144 mmol/L [facility] Urea nitrogen [Mass/Vol] 18 mg/dL 8 - 23 mg/dL [facility] Urea nitrogen/Creatinine [Mass ratio] 26 mg/mg High 9 - 20 [facility] Basic Metabolic Profon 06-02 Anion gap [Moles/Vol] 11 mmol/L Normal 9-17 [facility] Comment on above: Performed By: #### AGUSTÍN Navarrete, TROPI #### [facility] [address] [place], [place] [id number] Press Tender Smoke Signal: Naldo Tinsley MD BUN/CRE Ratio 26 High 9-20 [facility] Comment on above: Performed By: #### AGUSTÍN Navarrete, TROPI #### [facility] [address] [place], [place] [phone] Press Tender Smoke Signal: Naldo Tinsley MD Calcium [Mass/Vol] 9.5 mg/dL Normal 8.6-10.4 [facility] Comment on above: Performed By: #### AGUSTÍN Navarrete, TROPI #### [facility] [address] [place] [address] Press Tender Smoke Signal: Naldo Tinsley MD Chloride [Moles/Vol] 100 mmol/L Normal 98-107 [facility] Comment on above: Performed By: #### AGUSTÍN Navarrete, TROPI #### [facility] [address] [place], [place] [phone] [employer] Smoke Signal: Naldo Tinsley MD CO2 [Moles/Vol] 26 mmol/L Normal 20-31 [facility] Comment on above: Performed By: #### AGUSTÍN Navarrete, TROPI #### [facility] [address] [place], [place] [phone] [employer] Smoke Signal: Naldo Tinsley MD Creatinine [Mass/Vol] 0.7 mg/dL Normal 0.5-0.9 [facility] Comment on above: Performed By: #### AGUSTÍN Navarrete, TROPI #### [facility] [address] [place], [place] [phone] [employer] Smoke Signal: Naldo Tinsley MD GFR/1.73 sq M.predicted among non-blacks MDRD (S/P/Bld) [Vol rate/Area] mL/min/{1.73_m2} Normal >60 [facility] Comment on above: Result Comment: These [...] renal tubular secretion. Performed By: #### AGUSTÍN Navarrete, TROPI #### [facility] [address] [place] [address] [employer] Smoke Signal: Naldo Tinsley MD Glucose [Mass/Vol] 185 mg/dL High 70-99 [facility] Comment on above: Performed By: #### AGUSTÍN Navarrete, TROPI #### [facility] [address] [place] [address] Press [employer] Smoke Signal: Naldo Tinsley MD Potassium [Moles/Vol] 3.8 mmol/L Normal 3.7-5.3 [facility] Comment on above: Performed By: #### AGUSTÍN Navarrete, TROPI #### [facility] [address] [place] [address] [employer]: Naldo Tinsley MD Sodium [Moles/Vol] 137 mmol/L Normal 135-144 [facility] Comment on above: Performed By: #### AGUSTÍN Navarrete, TROPI #### [facility] [address] [place] [address] Press Tender Smoke Signal: Naldo Tinsley MD Urea nitrogen [Mass/Vol] 18 mg/dL Normal 8-23 [facility] Comment on above: Performed By: #### AGUSTÍN Navarrete, TROPI #### [facility] [address] [place] [address] Press Tender Smoke Signal: Naldo Tinsley MD Magnesiumon 06-02-2024 Magnesium [Mass/Vol] 1.8 mg/dL 1.6 - 2 .6 mg/dL [facility] Magnesium [Mass/Vol] 1.8 mg/dL Normal 1.6-2.6 [facility] Comment on above: Performed By: #### M AGUSTÍN Kelley, TROPI #### [facility] [address] [place], [place] [id number] Press Tender Smoke Signal: Naldo Tinsley MD No Panel Informationon 06-02 [facility] Troponinon 06-02-2024 Troponin I.cardiac High sensitivity method [Mass/Vol] 13 ng/L 0 - 14 ng/L [facility] Comment on above: High Sensitivity Tro ponin values cannot be compared with other Troponin methodologies. [facility] Troponin, High Sens 13 ng/L Normal 0-14 [facility] Comment on above: Result Comment: High Sensitivity Troponin values cannot be compared with other Troponin methodologies. Performed By: #### M AGUSTÍN Kelley, TROPI #### [facility] [address] [place] [address] Press Tender Smoke Signal: Naldo Tinsley MD DBT Breast - bilateral scree ningon 05-23-2024 OVERALL ASSESSMENT: BIRADS: 1 Negative, no evidence of malignancy. A letter of notification will be mailed to the patient. Performing Facility: [facility] [address] [place] [address] [facility] HISTORY: Screening. Family history of breast [...] skin lesions and linear markers represent scars.) [facility] DBT Breast - bilateral scree ningOrdered By: Mehul Doyle on 05-23-2024 [facility] Work Phone: [facility] RENEE DIGITAL SCREEN BILJulieth TERALon 05-23-2024 [facility] RENEE DIGITAL SCREEN BILATERAL [...] be mailed to the patient. Performing Facility: [place] [address] Interpreted by: Mehul Doyle Jr., MD Signed by: Mehul Doyle Jr., MD 05/23/24 Final result Normal [facility] DBT Breast - bilateral scree kaleb 05-22-2024 Radiology Study observation (narrative) Manjit [facility] AMYLASEon 07-08-2022 Amylase [Catalytic activity/Vol] 32 U/L Normal 25-115 [facility] Comment on above: Performed By: #### A MY, CMP, LIPA #### [facility] [address] [place] [address] Dr. Navi Day CBC AUTO DIFFon 07-08-2022 BASO # 0.0 103/ul Normal 0.0-0.1 [facility] Comment on above: Performed By: #### C BC #### [facility] [address] [place] [address] Dr. Navi Day Basophils/100 WBC (Bld) 0.3 % Normal 0.2-2.0 [facility] Comment on above: Performed By: #### C BC #### [facility] [address] [place] [address] Dr. Navi Day EO # 0.0 103/ul Normal 0.0-0.7 [facility] Comment on above: Performed By: #### C BC #### [facility] [address] [place] [address] Dr. Navi Day Eosinophils/100 WBC (Bld) 0.6 % Critically low 0.9-7.0 [facility] Comment on above: Performed By: #### C BC #### [facility] [address] [place] [address] Dr. Navi Day Erythrocyte distribution width (RBC) [Ratio] 12.7 % Normal 11.0-15.0 [facility] Comment on above: Performed By: #### C BC #### [facility] [address] [place] [address] Dr. Navi Day Hematocrit (Bld) [Volume fraction] 42.2 % Normal 36.0-48.0 [facility] Comment on above: Performed By: #### C BC #### [facility] [address] [place] [address] Dr. Navi Day Hemoglobin (Bld) [Mass/Vol] 14.2 g/dL Normal 12.0-16.0 [facility] Comment on above: Performed By: #### C BC #### [facility] [address] [place] [address] Dr. Navi Day IG # 0.03 10e3/ul Normal 0.00-0.03 [facility] Comment on above: Performed By: #### C BC #### [facility] [address] [place] [address] Dr. Navi Day IG % 0.5 % Normal 0.0-0.5 [facility] Comment on above: Performed By: #### C BC #### [facility] [address] [place] [address] Dr. Navi Day LYMPH # 0.8 103/ul Critically low 1.2-3.8 [facility] Comment on above: Performed By: #### C BC #### [facility] [address] [place] [address] Dr. Navi Day Lymphocytes/100 WBC (Bld) 12.6 % Critically low 20.5-60.0 [facility] Comment on above: Performed By: #### C BC #### [facility] [address] [place] [address] Dr. Navi Day MANUAL DIFF REQ NO Normal [facility] Comment on above: Performed By: #### C BC #### [facility] [address] [place] [address] Dr. Navi Day MCH (RBC) [Entitic mass] 27.8 pg Normal 26.7-34.0 [facility] Comment on above: Performed By: #### C BC #### [facility] [address] [place] [address] Dr. Navi Day MCHC (RBC) [Mass/Vol] 33.6 g/dL Normal 29.9-35.2 [facility] Comment on above: Performed By: #### C BC #### [facility] [address] [place] [address] Dr. Navi Day MCV (RBC) [Entitic vol] 82.6 fL Normal 81.0-99.0 [facility] Comment on above: Performed By: #### C BC #### [facility] [address] [place] [address] Dr. Navi Day MONO # 0.5 103/ul Normal 0.3-0.8 [facility] Comment on above: Performed By: #### C BC #### [facility] [address] [place] [address] Dr. Navi Day Monocytes/100 WBC (Bld) 7.6 % Normal 1.7-12.0 [facility] Comment on above: Performed By: #### C BC #### [facility] [address] [place] [address] Dr. Navi Day NEUT # 5.0 103/ul Normal 1.4-6.5 [facility] Comment on above: Performed By: #### C BC #### [facility] [address] [place] [address] Dr. Navi Day Neutrophils/100 WBC (Bld) 78.4 % Critically high 43.0-75.0 [facility] Comment on above: Performed By: #### C BC #### [facility] [address] [place] [address] Dr. Navi Day Platelet mean volume (Bld) [Entitic vol] 10.2 fL Normal 9.5-13.5 [facility] Comment on above: Performed By: #### C BC #### [facility] [address] [place], [place] [address] Dr. Navi Day PLT 243 103/ul Normal 150-450 [facility] Comment on above: Performed By: #### C BC #### [facility] [address] [place], [place] [address] Dr. Navi Day RBC 5.11 106/ul Normal 4.20-5.40 [facility] Comment on above: Performed By: #### C BC #### [facility] [address] [place], [place] [address] Dr. Navi Day WBC 6.4 103/ul Normal 4.0-11.0 [facility] Comment on above: Performed By: #### C BC #### [facility] [address] [place], [place] [address] ABD/PELV W CONon [...] Lisandra CAMERON Date: 2022-07-08 21:04 Normal [facility] ER URINE PROFILEon 3 Bilirubin Ql (U) Negative Normal NEGATIVE [facility] Comment on above: Performed By: #### E RUR #### [facility] [address] [place] [address] Dr. Navi Day Clarity (U) CLEAR Normal CLEAR [facility] Comment on above: Performed By: #### E RUR #### [facility] [address] [place] [address] Dr. Navi Day Color (U) YELLOW Normal YELLOW [facility] Comment on above: Performed By: #### E RUR #### [facility] [address] [place] [address] Dr. Navi Day ERUAHRosanne A micrscopic examination will be performed if indicated. Normal [facility] Comment on above: Performed By: #### E RUR #### [facility] [address] [place] [address] Dr. Navi Day Glucose Ql (U) Negative Normal NEGATIVE [facility] Comment on above: Performed By: #### E RUR #### [facility] [address] [place] [address] Dr. Navi Day Hemoglobin Ql (U) Negative Normal NEGATIVE [facility] Comment on above: Performed By: #### E RUR #### [facility] [address] [place] [address] Dr. Navi Day Ketones Ql (U) 15 mg/dl Abnormal NEGATIVE [facility] Comment on above: Performed By: #### E RUR #### [facility] [address] [place] [address] Dr. Navi Day LEUKOCYTES TRACE Abnormal NEGATIVE [facility] Comment on above: Performed By: #### E RUR #### [facility] [address] [place] [address] Dr. Navi Day Nitrite Ql (U) Negative Normal NEGATIVE [facility] Comment on above: Performed By: #### E RUR #### [facility] [address] [place] [address] Dr. Navi Day pH (U) 6.0 [pH] Normal 5-9 [facility] Comment on above: Performed By: #### E RUR #### [facility] [address] [place] [address] Dr. Navi Day SPEC GRAVITY 1.010 Normal 1.005-<=1.02 5 [facility] Comment on above: Performed By: #### E RUR #### [facility] [address] [place] [address] Dr. Navi Day UA PROTEIN Negative Normal NEGATIVE/ TRACE [facility] Comment on above: Performed By: #### E RUR #### [facility] [address] [place] [address] Dr. Navi Day UR MICRO IND NOT INDICATED Normal [facility] Comment on above: Performed By: #### E RUR #### [facility] [address] [place] [address] Dr. Navi Day Urobilinogen Qn (U) 0.2 {Claire'U}/dL Normal 0.2 - 1. 0 [facility] Comment on above: Performed By: #### E RUR #### [facility] [address] [place] [address] Dr. Navi Day LIPASEon 07-08-2022 Lipase [Catalytic activity/Vol] 105.0 U/L Normal 73.0-393.0 [facility] Comment on above: Performed By: #### A MY, CMP, LIPA #### [facility] [address] [place] [address] Dr. Navi Day PROF 14(COMP METB)on 023 Albumin [Mass/Vol] 3.1 g/dL Critically low 3.4-5.0 [facility] Comment on above: Performed By: #### A MY, CMP, LIPA #### [facility] [address] [place] [address] Dr. Navi Day Albumin/Globulin [Mass ratio] 0.8 {ratio} Normal [facility] Comment on above: Performed By: #### A MY, CMP, LIPA #### [facility] [address] [place] [address] [address] Navi Day ALP [Catalytic activity/Vol] 58 U/L Normal 46-116 [facility] Comment on above: Performed By: #### A MY, CMP, LIPA #### [facility] [address] [place] [address] [address] Navi Day ALT [Catalytic activity/Vol] 22 U/L Normal 14-59 [facility] Comment on above: Performed By: #### A MY, CMP, LIPA #### [facility] [address] [place] [address] Dr. Navi Day Anion gap [Moles/Vol] 12.5 mmol/L Normal [facility] Comment on above: Performed By: #### A MY, CMP, LIPA #### [facility] [address] [place] [address] [address] Navi Day AST [Catalytic activity/Vol] 23 U/L Normal 15-37 [facility] Comment on above: Performed By: #### A MY, CMP, LIPA #### [facility] [address] [place] [address] Dr. Navi Day Bilirubin [Mass/Vol] 0.5 mg/dL Normal 0.2-1.0 [facility] Comment on above: Performed By: #### A MY, CMP, LIPA #### [facility] [address] [place] [address] Dr. Navi Day Calcium [Mass/Vol] 9.0 mg/dL Normal 8.5-10.1 [facility] Comment on above: Performed By: #### A MY, CMP, LIPA #### [facility] [address] [place] [address] [address] Navi Day Chloride [Moles/Vol] 100 mmol/L Normal 98-107 [facility] Comment on above: Performed By: #### A MY, CMP, LIPA #### [facility] [address] [place] [address] [address] Navi Day CO2 [Moles/Vol] 27.0 mmol/L Normal 21.0-32.0 [facility] Comment on above: Performed By: #### A MY, CMP, LIPA #### [facility] [address] [place] [address] [address] Navi Day Creatinine [Mass/Vol] 0.79 mg/dL Normal 0.55-1.02 [facility] Comment on above: Performed By: #### A MY, CMP, LIPA #### [facility] [address] [place] [address] [address] Navi Day EGFR-AF GHANAIAN >60 Normal >=60 [facility] Comment on above: Performed By: #### A MY, CMP, LIPA #### [facility] [address] [place] [address] [address] Navi Day EGFR-NON AF GHANAIAN >60 Normal >=60 [facility] Comment on above: Performed By: #### A MY, CMP, LIPA #### [facility] [address] [place] [address] [address] Navi Day Globulin (S) [Mass/Vol] 3.8 g/dL Normal [facility] Comment on above: Performed By: #### A MY, CMP, LIPA #### [facility] [address] [place] [address] [address] Navi Day Glucose [Mass/Vol] 168 mg/dL Critically high 74-106 [facility] Comment on above: Performed By: #### A MY, CMP, LIPA #### [facility] [address] [place] [address] [address] Navi Day Potassium [Moles/Vol] 3.5 mmol/L Normal 3.5-5.1 [facility] Comment on above: Performed By: #### A MY, CMP, LIPA #### [facility] [address] [place] [address] [address] Navi Day Protein [Mass/Vol] 6.9 g/dL Normal 6.4-8.2 [facility] Comment on above: Performed By: #### A MY, CMP, LIPA #### [facility] [address] [place] [address] [address] Navi Day Sodium [Moles/Vol] 136 mmol/L Normal 136-145 [facility] Comment on above: Performed By: #### A MY, CMP, LIPA #### [facility] [address] [place] [address] [address] Navi Day Urea nitrogen [Mass/Vol] 19.0 mg/dL Critically high 7.0-18.0 [facility] Comment on above: Performed By: #### A MY, CMP, LIPA #### [facility] [address] [place] [address] [address] Navi Day Urea nitrogen/Creatinine [Mass ratio] 24.1 mg/mg Normal [facility] Comment on above: Performed By: #### A MY, CMP, LIPA #### [facility] [address] [place] [address] [address] Navi Day [facility] RENEE DIGITAL SCREEN BILA TERALon 05-19-2022 BI-RADS 1 - Negative, no evidence of malignancy. Normal interval followup in 12 months. OVERALL ASSESSMENT- NEGATIVE A letter of notification will be sent to the patient regarding the results. [facility] HISTORY: Screening. Family history of breast carcinoma. TECHNIQUE: Bilateral digital screening mammogram with CAD. 2-D and 3-D tomography. FINDINGS: Two views of each breast show scattered areas of fibroglandular density. No change from prior studies most recent 04/03/2020. Suspicious calcifications: None. Suspicious mass: None. (If skin markers were applied, circles represent skin lesions and linear markers represent scars.) [facility] Radiology Study observation (narrative) [employer] Work Phone: [employer] RENEE DIGITAL SCREEN BILA TERALOrdered By: Mehul Doyle on 05-19-2022 [employer] Phone: COVID/FLU/RSV RT-PCRon 05-05 SARS-CoV-2 (COVID-19) RNA JULIA+probe Ql (Unsp spec) Positive [employer] Other COVID/FLU/RSV RT-PCR Negative [facility] [employer] Other COVID Quick Testingon 2021 Result Negative [facility] Complete Other Quick Fluon 09-28-2021 FLUAV Ab CF (S) [Titer] Negative [employer] Other FLUBV Ab CF (S) [Titer] Negative [employer] Other XR chest 2V*on 09-28-2021 XR chest 2V* [facility] [employer] Other XR chest 2V* [facility] [place] [facility] [employer] Other XR chest 2V* [address] [place] [address] [employer] Other XR chest 2V* [place] [address] [facility] [employer] Other XR chest 2V* XRay Report [employer] Other XR chest 2V* Signed [employer] Other XR chest 2V* Patient: Kathryn Giordano MR#: [id number] [place] [employer] Other XR chest 2V* [address] [employer] Other XR chest 2V* : 1955 Acct:[id number] [employer] Other XR chest 2V* Age/Sex: 66 / F ADM Date: 09/28/21 [employer] Other XR chest 2V* Loc: XDUCLY Room: Type: REG CLI [employer] Other XR chest 2V* Attending Dr: Anais Farley APRN [employer] Other XR chest 2V* Ordering Provider: Anais Farley APRN [employer] Other XR chest 2V* Date of Service: 09/28/21 [employer] Other XR chest 2V* XR/XR chest 2V*: COUGH [employer] Other XR chest 2V* Copies to: Anais Farley APRN [employer] Other XR chest 2V* Plain film chest2 view [employer] Other XR chest 2V* HISTORY:Productive cough. [employer] Other XR chest 2V* COMPARISON:None [facility] [employer] Other XR chest 2V* FINDINGS: The cardiac, mediastinal and hilar silhouettes are within normal limits. No acute lung [employer] Other XR chest 2V* process, pleural effusion or pneumothorax identified. Bony structures are intact. [employer] Other XR chest 2V* XR/XR chest 2V* [employer] Other XR chest 2V* IMPRESSION: No acute process. [employer] Other XR chest 2V* Impression dictated by: Sae Stafford M.D.09/28/2021 11:55 AM [employer] Other XR chest 2V* Dictation Location: [place] [address] [employer] Other XR chest 2V* Transcribed By: PWS 09/28/21 [facility] [employer] Other XR chest 2V* Dictated By: Sae Stafford DO 09/28/21 [facility] [employer] Other XR chest 2V* Signed By: [employer] Other XR chest 2V* 09/28/21 [facility] [employer] [facility] [employer] Other XR chest 2V* [facility] [place] [address] [place] [address] XRay Report Signed Patient: Kathryn Giordano MR#: [id number] : 1955 Acct:[id number] Age/Sex: 66 / F ADM Date: 09/28/21 [facility]: Type[facility] Attending Dr: Anais Farley OIL PAINTER Ordering Provider: Anais Farley APRN Date of [...] Sae Stafford M.D.09/28/2021 11:55 AM Dictation Location: [place] [address] Transcribed By: [facility] 09/28/21 1155 Dictated By: Sae Stafford DO 09/28/21 1155 Signed By: 09/28/21 1155 Normal [facility] LIPID PROFILEon 09-27-2021 CHOL-HDL RATIO NORM SEE BELOW Normal [facility] Comment on above: Result Comment: 3.3 - 4.4 LOW RISK 4.4 - 7.1 AVERAGE RISK 7.1 - 11.0 MODERATE RISK >11.0 HIGH RISK Performed By: #### L CARLOS, CMP #### [facility] [address] [place] [address] [address] Navi Day Cholesterol [Mass/Vol] 203 mg/dL Critically high <=200 [facility] Comment on above: Performed By: #### L CARLOS, CMP #### [facility] [address] [place] [address] [address] Navi Day Cholesterol in HDL [Mass/Vol] 72 mg/dL Critically high 40-60 [facility] Comment on above: Performed By: #### L CARLOS, CMP #### [facility] [address] [place] [address] [address] Navi Day Cholesterol in LDL [Mass/Vol] 109.6 mg/dL Normal [facility] Comment on above: Performed By: #### L IPID, CMP #### [facility] [address] [place] [address] Dr. Navi Day Cholesterol.total/Chol esterol in HDL [Mass ratio] 2.8 {ratio} Normal [facility] Comment on above: Performed By: #### L IPID, CMP #### [facility] [address] [place] [address] Dr. Navi Day HDL NORMAL > or = 60 mg/dl - LOW CARDIOVASCULAR RISK <40 mg/dl - HIGH CARDIOVASCULAR RISK Normal [facility] Comment on above: Performed By: #### L IPID, CMP #### [facility] [address] [place] [address] Dr. Navi Day LDL CALC NORMAL SEE BELOW Normal [facility] Comment on above: Result Comment: <100 mg/dl OPTIMAL 100 - 129 mg/dl NEAR OR ABOVE OPTIMAL 130 - 159 mg/dl BORDERLINE HIGH 160 - 189 mg/dl HIGH >190 mg/dl VERY HIGH Performed By: #### L IPID, CMP #### [facility] [address] [place] [address] Dr. Navi Day Triglyceride [Mass/Vol] 107 mg/dL Normal <=150 [facility] Comment on above: Performed By: #### L IPID, CMP #### [facility] [address] [place] [address] Dr. Navi Day VLDL CALC 21.4 mg/dL Normal [facility] Comment on above: Performed By: #### L IPID, CMP #### [facility] [address] [place] [address] Dr. Navi Day PROF 14(COMP METB)on 022 Albumin [Mass/Vol] 3.6 g/dL Normal 3.4-5.0 [facility] Comment on above: Performed By: #### L IPID, CMP #### [facility] [address] [place] [address] Dr. Navi Day Albumin/Globulin [Mass ratio] 0.8 {ratio} Normal [facility] Comment on above: Performed By: #### L IPID, CMP #### [facility] [address] [place] [address] [address] Navi Day ALP [Catalytic activity/Vol] 52 U/L Normal 46-116 [facility] Comment on above: Performed By: #### L IPID, CMP #### [facility] [address] [place] [address] [address] Nvai Day ALT [Catalytic activity/Vol] 34 U/L Normal 14-59 [facility] Comment on above: Performed By: #### L IPID, CMP #### [facility] [address] [place] [address] Dr. Navi Day Anion gap [Moles/Vol] 15.7 mmol/L Normal [facility] Comment on above: Performed By: #### L IPID, CMP #### [facility] [address] [place] [address] Dr. Navi Day AST [Catalytic activity/Vol] 19 U/L Normal 15-37 [facility] Comment on above: Performed By: #### L IPID, CMP #### [facility] [address] [place] [address] Dr. Navi Day Bilirubin [Mass/Vol] 0.4 mg/dL Normal 0.2-1.0 [facility] Comment on above: Performed By: #### L IPID, CMP #### [facility] [address] [place] [address] Dr. Navi Day Calcium [Mass/Vol] 9.3 mg/dL Normal 8.5-10.1 [facility] Comment on above: Performed By: #### L IPID, CMP #### [facility] [address] [place] [address] Dr. Navi Day Chloride [Moles/Vol] 100 mmol/L Normal 98-107 [facility] Comment on above: Performed By: #### L IPID, CMP #### [facility] [address] [place] [address] Dr. Navi Day CO2 [Moles/Vol] 28.4 mmol/L Normal 21.0-32.0 [facility] Comment on above: Performed By: #### L IPID, CMP #### [facility] [address] [place] [address] Dr. Navi Day Creatinine [Mass/Vol] 0.84 mg/dL Normal 0.55-1.02 [facility] Comment on above: Performed By: #### L IPID, CMP #### [facility] [address] [address] [address] Navi Day EGFR-AF GHANAIAN >60 Normal >=60 [facility] Comment on above: Performed By: #### L IPID, CMP #### [facility] [address] [place] [address] Dr. Navi Day EGFR-NON AF GHANAIAN >60 Normal >=60 [facility] Comment on above: Performed By: #### L IPID, CMP #### [facility] [address] [place] [address] Dr. Navi Day Globulin (S) [Mass/Vol] 4.1 g/dL Normal [facility] Comment on above: Performed By: #### L IPID, CMP #### [facility] [address] [place] [address] Dr. Navi Day Glucose [Mass/Vol] 198 mg/dL Critically high 74-106 T [facility] Comment on above: Performed By: #### L IPID, CMP #### [facility] [address] [place] [address] Dr. Navi Day Potassium [Moles/Vol] 4.1 mmol/L Normal 3.5-5.1 [facility] Comment on above: Performed By: #### L IPID, CMP #### [facility] [address] [place] [address] Dr. Navi Day Protein [Mass/Vol] 7.7 g/dL Normal 6.1-8.2 [facility] Comment on above: Performed By: #### L IPID, CMP #### [facility] [address] [place] [address] Dr. Navi Day Sodium [Moles/Vol] 140 mmol/L Normal 136-145 [facility] Comment on above: Performed By: #### L IPID, CMP #### [facility] [address] [address] [address] Navi Day Urea nitrogen [Mass/Vol] 19.0 mg/dL Critically high 7.0-18.0 [facility] Comment on above: Performed By: #### L IPID, CMP #### [facility] [address] [address] [address] Navi Day Urea nitrogen/Creatinine [Mass ratio] 22.6 mg/mg Normal [facility] Comment on above: Performed By: #### L IPID, CMP #### [facility] [address] [address] [address] Navi Day COVID Quick Testingon 2021 Result Negative [facility] Complete Other Quick Fluon 09-06-2021 FLUAV Ab CF (S) [Titer] Negative [facility] Other FLUBV Ab CF (S) [Titer] Negative [facility] Complete Other [facility] BI-RADS 1 - Negative, no evidence of malignancy. Normal interval followup in 12 months. OVERALL ASSESSMENT- NEGATIVE A letter of notification will be sent to the patient regarding the results. [place] HISTORY: Screening. Family history breast carcinoma. [...] skin lesions and linear markers represent scars.) [place] Alan, N[place] Incoming Radiant Results From [employer] - 04/04/2020 10:31 AM EST HISTORY: Screening. [...] sent to the patient regarding the results. [place] Albuminon 11-02-2019 Albumin [Mass/Vol] 4.5 g/dL 3.5 - 5.2 g/dL [place] Calciumon 11-02-2019 Calcium [Mass/Vol] 10.2 mg/dL 8.6 - 10. 4 mg/dL [place] Comprehensive Metabolic Pane bettie 10-10-2019 Albumin [Mass/Vol] 4.5 g/dL 3.5 - 5.2 g/dL [place] Albumin/Globulin [Mass ratio] NOT REPORTED [place] ALP [Catalytic activity/Vol] 67 U/L 35 - 104 U/L [place] ALT [Catalytic activity/Vol] 23 U/L 5 - 33 U/L [place] Anion gap [Moles/Vol] 7 mmol/L Low 9 - 17 mmol/L [place] AST [Catalytic activity/Vol] 25 U/L <32 [place] Bilirubin Ql (U) 0.49 mg/dL 0.3 - 1.2 mg/dL [place] Bun/Cre Ratio 16 [place] Calcium [Mass/Vol] 11.2 mg/dL High 8.6 - 10. 4 mg/dL [place] Chloride [Moles/Vol] 97 mmol/L Low 98 - 10 7 mmol/L [place] CO2 [Moles/Vol] 30 mmol/L 20 - 31 mmol/L [place] Creatinine [Mass/Vol] 0.74 mg/dL 0.5 - 0.9 mg/dL [place] GFR >60 >60 mL/min [place] GFR Non- >60 >60 mL/min [place] GFR/1.73 sq M predicted among non-blacks MDRD (S/P/Bld) [Vol rate/Area] NOT REPORTED [place] GFR/1.73 sq M predicted among non-blacks MDRD (S/P/Bld) [Vol rate/Area] [place] Comment on above: Average GFR for 60-6 9 years old: 85 mL/min/1.73sq m Chronic Kidney Disease: <60 mL/min/1.73sq m Kidney failure: <15 mL/min/1.73sq m eGFR calculated using average adult body mass. Additional eGFR calculator available at: http://www.MarketArt/multiple_crcl_2012.htm Glucose [Mass/Vol] 196 mg/dL High 70 - 99 mg/dL [place] Interpretation and review of laboratory results Abnormal [place] Potassium [Moles/Vol] 4.1 mmol/L 3.7 - 5.3 mmol/L [place] Protein [Mass/Vol] 8.0 g/dL 6.4 - 8.3 g/dL [place] Sodium [Moles/Vol] 134 mmol/L Low 135 - 144 mmol/L [place] Urea nitrogen [Mass/Vol] 12 mg/dL 8 - 23 mg/dL [place] Lipid Panelon 10-10-2019 Cholesterol [Mass/Vol] 192 mg/dL <200 [place] Comment on above: Cholesterol Guidelines: <200 Desirable 200-240 Borderline >240 Undesirable Cholesterol in HDL [Mass/Vol] 67 mg/dL >40 [place] Comment on above: HDL Guidelines: <40 Undesirable 40-59 Borderline >59 Desirable Cholesterol in LDL [Mass/Vol] 101 mg/dL 0 - 130 mg/dL [place] Comment on above: LDL Guidelines: <100 Desirable 100-129 Near to/above Desirable 130-159 Borderline >159 Undesirable Direct (measured) LDL and calculated LDL are not interchangeable tests. Cholesterol in VLDL [Mass/Vol] NOT REPORTED 1 - 30 mg/dL [place] Cholesterol.total/Chol esterol in HDL [Mass ratio] 2.9 {ratio} <5 [place] Triglyceride [Mass/Vol] 122 mg/dL <150 [place] Comment on above: Triglyceride Guidelines: <150 Desirable 150-199 Borderline 200-499 High >499 Very high Based on AHA Guidelines for fasting triglyceride, February 2012. Patient Fasting?on 0 Patient Fasting? yes [place] CBC Auto Differentialon 02-28 Basophils (Bld) [#/Vol] 0.00 10*3/uL [place] Basophils/100 WBC (Bld) 0 % 0 - 2 % [place] Differential Type YES [facility] [place] Eosinophils (Bld) [#/Vol] 0.30 10*3/uL [place] Eosinophils/100 WBC (Bld) 3 % 0 - 5 % [place] Erythrocyte distribution width (RBC) [Ratio] 13.7 % 12.1 - 15.2 % [place] Hematocrit (Bld) [Volume fraction] 40.1 % 36 - 46 % [place] Hemoglobin (Bld) [Mass/Vol] 13.3 g/dL 12 - 16 g/dL [place] Lymphocytes (Bld) [#/Vol] 2.00 10*3/uL [place] Lymphocytes/100 WBC (Bld) 22 % 15 - 40 % [place] MCH (RBC) [Entitic mass] 27.9 pg 26 - 34 pg [place] MCHC (RBC) [Mass/Vol] 33.2 g/dL 31 - 37 g/dL [place] MCV (RBC) [Entitic vol] 83.9 fL 80 - 100 fL [place] Monocytes (Bld) [#/Vol] 0.70 10*3/uL [place] Monocytes/100 WBC (Bld) 8 % 4 - 8 % [place] Platelet mean volume (Bld) [Entitic vol] NOT REPORTED 6 - 12 fL [place] Platelets (Bld) [#/Vol] NOT REPORTED [place] Platelets (Bld) [#/Vol] 255 10*3/uL [place] RBC (Bld) [#/Vol] 4.78 10*6/uL 4 - 5.2 m/uL [place] RBC morphology finding Nom (Bld) NOT REPORTED [place] Segmented neutrophils/100 WBC (Bld) 67 % 47 - 75 % [place] Segs Absolute 6.00 [place] WBC (Bld) [#/Vol] NOT REPORTED per 100 WBC [place] WBC (Bld) [#/Vol] 9.0 10*3/uL [place] WBC Morphology NOT REPORTED [place] Otheron 03-14-2019 Immature granulocytes (Bld) [#/Vol] NOT REPORTED [place] THIERNO DIGITAL SCREEN W OR WO C AD BILATERALon 02-16-2019 Benign bilateral mammography. BI-RADS 2 - Benign, no evidence of malignancy. Normal interval followup is recommended in 12 months. OVERALL ASSESSMENT- BENIGN A letter of notification will be sent to the patient regarding the results. [place] EXAM: THIERNO DIGITAL SCREEN W OR WO CAD BILATERAL HISTORY: Reason for exam:->screening. COMPARISON: 01/05/2018, 10/14/2016, 10/09/2015. TECHNIQUE: 2D views FINDINGS: Breasts are of scattered fibroglandular composition. Minimal postsurgical scarring is seen in the upper-outer left breast, and this is stable. No developing masses, microcalcifications , or enlarged lymph nodes. [place] Alan, Mhpn Incoming Radiant Results From [facility] (P)s - 02/16/2019 10:14 AM EDT EXAM: THIERNO [...] sent to the patient regarding the results. [facility] [place], [place] Vital Signs Date Time Vital Sign Value Performing Clinician Facility 09-11-2024 13:39-0400 Body height 165.1 cm Mary Anne Babb DPM Work Phone: [facility] 09-11-2024 13:39-0400 Body mass index (BMI) [Ratio] 39.94 kg/m2 Mary Anne Babb DPM Work Phone: [facility] 09-11-2024 13:39-0400 Body weight 108.86 kg Mary Anne Babb DPM Work Phone: [facility] 09-11-2024 13:39-0400 Diastolic blood pressure 59 mm[Hg] Mary Anne Babb DPM Work Phone: [facility] 09-11-2024 13:39-0400 Heart rate 70 /min Mary Anne Babb DPM Work Phone: [facility] 09-11-2024 13:39-0400 Systolic blood pressure 111 mm[Hg] Mary Anne Babb DPM Work Phone: [facility] 06-22-2024 10:24-0500 Diastolic blood pressure 56 mm[Hg] Kraig Alford DO Work Phone: [facility] 06-22-2024 10:24-0500 Heart rate 89 /min Kraig Alford DO Work Phone: [facility] 06-22-2024 10:24-0500 Systolic blood pressure 131 mm[Hg] Kraig Alford DO Work Phone: [facility] 06-08-2024 10:32-0500 Body height 165.1 cm [facility] 06-08-2024 10:32-0500 Body mass index (BMI) [Ratio] 38.4 kg/m2 [facility] 06-08-2024 10:32-0500 Body temperature 98.1 [degF] [facility] 06-08-2024 10:32-0500 Body weight 104.77 kg [facility] 06-08-2024 10:32-0500 Diastolic blood pressure 78 mm[Hg] [facility] 06-08-2024 10:32-0500 Heart rate 81 /min [facility] 06-08-2024 10:32-0500 Respiratory rate 20 /min [facility] 06-08-2024 10:32-0500 SaO2% (BldA) [Mass fraction] 97 % [facility] 06-08-2024 10:32-0500 Systolic blood pressure 140 mm[Hg] [facility] 06-02-2024 09:00-0500 Diastolic blood pressure 65 mm[Hg] [facility] 06-02-2024 09:00-0500 Heart rate 68 /min Carlos Aguayo MD Work Phone: [facility] [employer] 06-02-2024 09:00-0500 Respiratory rate 21 /min Carlos Aguayo MD Work Phone: [facility] [employer] 06-02-2024 09:00-0500 Systolic blood pressure 146 mm[Hg] Carlos Aguayo MD Work Phone: [facility] [employer] 06-02-2024 08:00-0500 SaO2% (BldA) [Mass fraction] 90 % Carlos Aguayo MD Work Phone: [facility] [employer] 06-02-2024 07:38-0500 Body temperature 97.59 [degF] Carlos Aguayo MD Work Phone: [facility] [employer] 06-02-2024 06:39-0500 Body height 162.6 cm Carlos Aguayo MD Work Phone: [facility] [place] [employer] 06-02-2024 06:39-0500 Body mass index (BMI) [Ratio] 39.99 kg/m2 Carlos Aguayo MD Work Phone: [facility] 06-02-2024 06:39-0500 Body weight 105.69 kg Carlos Aguayo MD Work Phone: [facility] 04-11-2024 10:20-0500 Body height 165.1 cm Nefatly Buchanancek DO Work Phone: [facility] 04-11-2024 10:20-0500 Body mass index (BMI) [Ratio] 39.94 kg/m2 Neftaly Murcek DO Work Phone: [facility] 04-11-2024 10:20-0500 Body weight 108.86 kg Neftaly Buchanancek DO Work Phone: [facility] 03-20-2024 15:26-0400 Body height 165.1 cm Neftaly Buchanancek DO Work Phone: [facility] 03-20-2024 15:26-0400 Body mass index (BMI) [Ratio] 39.94 kg/m2 Neftaly Murcek DO Work Phone: [facility] 03-20-2024 15:26-0400 Body weight 108.86 kg Neftaly Buchanancek DO Work Phone: [facility] 03-09-2024 10:58-0400 Body height 165.1 cm [facility] 03-09-2024 10:58-0400 Body mass index (BMI) [Ratio] 38.2 kg/m2 [facility] 03-09-2024 10:58-0400 Body temperature 98.1 [degF] [facility] 03-09-2024 10:58-0400 Body weight 104.32 kg [facility] 03-09-2024 10:58-0400 Diastolic blood pressure 85 mm[Hg] [facility] 03-09-2024 10:58-0400 Heart rate 92 /min [facility] 03-09-2024 10:58-0400 Respiratory rate 18 /min [facility] 03-09-2024 10:58-0400 SaO2% (BldA) [Mass fraction] 96 % [facility] 03-09-2024 10:58-0400 Systolic blood pressure 161 mm[Hg] [facility] 12-09-2023 11:01-0400 Body height 165.1 cm [facility] 12-09-2023 11:01-0400 Body mass index (BMI) [Ratio] 38.6 kg/m2 [facility] 12-09-2023 11:01-0400 Body temperature 98.2 [degF] [facility] 12-09-2023 11:01-0400 Body weight 105.23 kg [facility] 12-09-2023 11:01-0400 Diastolic blood pressure 70 mm[Hg] [facility] 12-09-2023 11:01-0400 Heart rate 71 /min [facility] 12-09-2023 11:01-0400 Respiratory rate 20 /min [facility] 12-09-2023 11:01-0400 SaO2% (BldA) [Mass fraction] 97 % [facility] 12-09-2023 11:01-0400 Systolic blood pressure 143 mm[Hg] [facility] 09-30-2023 14:31-0400 Body height 165.1 cm [facility] 09-30-2023 14:31-0400 Body mass index (BMI) [Ratio] 39.2 kg/m2 [facility] 09-30-2023 14:31-0400 Body temperature 96.8 [degF] [facility] 09-30-2023 14:31-0400 Body weight 107.04 kg [facility] 09-30-2023 14:31-0400 Diastolic blood pressure 86 mm[Hg] [facility] 09-30-2023 14:31-0400 Heart rate 88 /min [facility] 09-30-2023 14:31-0400 Respiratory rate 20 /min [facility] 09-30-2023 14:31-0400 SaO2% (BldA) [Mass fraction] 97 % [facility] 09-30-2023 14:31-0400 Systolic blood pressure 134 mm[Hg] [facility] 07-13-2023 09:47-0500 Body height 165.1 cm Christopher Bohach DPM Work Phone: [facility] 07-13-2023 09:47-0500 Body mass index (BMI) [Ratio] 39.94 kg/m2 Christopher Bohach DPM Work Phone: [facility] 07-13-2023 09:47-0500 Body weight 108.86 kg Christopher Bohach DPM Work Phone: [facility] 07-13-2023 09:47-0500 Diastolic blood pressure 73 mm[Hg] Christopher Bohach DPM Work Phone: [facility] 07-13-2023 09:47-0500 Heart rate 72 /min Christopher Bohach DPM Work Phone: [facility] 07-13-2023 09:47-0500 Respiratory rate 16 /min Christopher Bohach DPM Work Phone: [facility] 07-13-2023 09:47-0500 Systolic blood pressure 140 mm[Hg] Christopher Bohach DPM Work Phone: [facility] 09-07-2022 10:00-0400 Body height 165.1 cm German Miranda Other [facility] Other 09-07-2022 10:00-0400 Body mass index (BMI) [Ratio] 38.27 kg/m2 German Miranda Other [facility] Other 09-07-2022 10:00-0400 Body temperature 96.9 [degF] German Miranda Other [facility] Other 09-07-2022 10:00-0400 Body weight 104.33 kg German Miranda Other [facility] Other 09-07-2022 10:00-0400 Diastolic blood pressure 82 mm[Hg] German Miranda Other [facility] Other 09-07-2022 10:00-0400 Respiratory rate 20 /min German Miranda Other [facility] Other 09-07-2022 10:00-0400 SaO2% (BldA) [Mass fraction] 97 % German Miranda Other [facility] Other 09-07-2022 10:00-0400 Systolic blood pressure 132 mm[Hg] German Miranda Other [facility] Other 05-05-2022 12:00-0500 Body height 165.1 cm Charline Cosmo Other [facility] Other 05-05-2022 12:00-0500 Body mass index (BMI) [Ratio] 38.27 kg/m2 Charline Cosmo Other [facility] Other 05-05-2022 12:00-0500 Body temperature 98 [degF] Charline Cosmo Other [facility] Other 05-05-2022 12:00-0500 Body weight 104.33 kg Charline Cosmo Other [facility] Other 05-05-2022 12:00-0500 Respiratory rate 18 /min Charline Cosmo Other [facility] Other 05-05-2022 12:00-0500 SaO2% (BldA) [Mass fraction] 97 % Charline Wilburn Other [facility] Other 09-28-2021 12:05-0400 Body height 165.1 cm Anais Miguelito Other [facility] Other 09-28-2021 12:05-0400 Body mass index (BMI) [Ratio] 36.94 kg/m2 Anais Farley Other [facility] Other 09-28-2021 12:05-0400 Body temperature 98.8 [degF] Anais Farley Other [facility] Other 09-28-2021 12:05-0400 Body weight 100.7 kg Anais Farley Other [facility] Other 09-28-2021 12:05-0400 Respiratory rate 18 /min Anais Farley Other [facility] Other 09-28-2021 12:05-0400 SaO2% (BldA) [Mass fraction] 96 % Anais Farley Other [facility] Other 09-06-2021 11:30-0400 Body height 165.1 cm Charline Wilburn Other [facility] Other 09-06-2021 11:30-0400 Body mass index (BMI) [Ratio] 37.6 kg/m2 Charline Wilburn Other [facility] Other 09-06-2021 11:30-0400 Body temperature 98.8 [degF] Charline Wilburn Other [facility] Other 09-06-2021 11:30-0400 Body weight 102.51 kg Charline Wilburn Other [facility] Other 09-06-2021 11:30-0400 SaO2% (BldA) [Mass fraction] 98 % Charline Wilburn Other [facility] Other 08-12-2021 10:45-0400 Body height 165.1 cm German Jacksondali Other [facility] Other 08-12-2021 10:45-0400 Body mass index (BMI) [Ratio] 37.94 kg/m2 German Jacksonban Other [facility] Other 08-12-2021 10:45-0400 Body temperature 97.2 [degF] German Renettaban Other [facility] Other 08-12-2021 10:45-0400 Body weight 103.42 kg German Jacksondali Other [facility] Other 08-12-2021 10:45-0400 Diastolic blood pressure 84 mm[Hg] German Renettaban Other [facility] Other 08-12-2021 10:45-0400 Respiratory rate 20 /min German Jacksonban Other [facility] Other 08-12-2021 10:45-0400 SaO2% (BldA) [Mass fraction] 100 % German Renettaban Other [facility] Other 08-12-2021 10:45-0400 Systolic blood pressure 168 mm[Hg] Markleroy Jacksonban Other [facility] Other Encounters Encounter Date Encounter Type Care Provider Facility Start: 10-17-2024 End: 10-17-2024 ambulatory SUZANNE DOUGLAS [facility] Start: 10-17-2024 End: 10-17-2024 Subsequent hospital visit by physician Suzanne Douglas MD Work Phone: [facility] Comment on above: Type 2 diabetes didi itus with hyperglycemia, without long-term current use of insulin ([facility]) Start: 09-11-2024 End: 09-11-2024 Bamboo flowsheet Mary Anne Babb DPM Work Phone: [facility] Start: 09-11-2024 End: 09-11-2024 Bamboo flowsheet Mary Anne Babb DPM Work Phone: [facility] Start: 09-11-2024 End: 09-11-2024 Patient encounter procedure Mary Anne Babb DPM Work Phone: [facility] Comment on above: Diabetic polyneuropa thy associated with type 2 diabetes mellitus ([facility]) (Primary Dx); Onychomycosis Start: 09-11-2024 End: 09-11-2024 ambulatory MARY ANNE BABB Not Available Start: 08-11-2024 End: 08-11-2024 ambulatory Freddy KRAUS Facility:[facility] Start: 08-11-2024 End: 08-11-2024 Patient encounter procedure Freddy KRAUS [facility] Start: 06-22-2024 End: 06-24-2024 ambulatory KRAIG ALFORD [facility] Start: 06-22-2024 End: 06-24-2024 Subsequent hospital visit by physician Kraig Alford DO Work Phone: [facility] Non-Invasive Cardiology Comment on above: Chest pain, unspecif ied type; Shortness of breath Arrived Start: 06-08-2024 End: 06-08-2024 ambulatory [facility] Work Phone: Start: 06-08-2024 End: 06-08-2024 Patient encounter procedure [facility] Work Phone: Start: 06-02-2024 End: 06-04-2024 [facility] Start: 06-02-2024 End: 06-04-2024 Subsequent hospital visit by physician Carlos Aguayo MD Work Phone: [facility] Non-Invasive Cardiology Comment on above: Sinus bradycardia; Sinus pause Start: 06-02-2024 End: 06-02-2024 [facility] Start: 06-02-2024 End: 06-02-2024 Subsequent hospital visit by physician Carlos Aguayo MD Work Phone: [facility] Comment on above: Sinus bradycardia (P rimary Dx); Sinus pause Start: 05-22-2024 End: 05-24-2024 [facility] Start: 05-22-2024 End: 05-24-2024 Subsequent hospital visit by physician Suzanne Douglas MD Work Phone: [facility] Mammography Comment on above: Encounter for screen ing mammogram for malignant neoplasm of breast Start: 05-11-2024 End: 05-11-2024 [facility] Start: 05-11-2024 Encounter for other preprocedural examination [facility] Start: 05-11-2024 End: 05-11-2024 Patient encounter status Suzanne Douglas MD Work Phone: [facility] Start: 05-11-2024 End: 05-11-2024 Subsequent hospital visit by physician Suzanne Douglas MD Work Phone: [facility] Comment on above: Pre-op testing Start: 04-11-2024 End: 04-11-2024 Bamboo flowsheet Neftaly Mcmanus DO Work Phone: [facility] Start: 04-11-2024 End: 04-11-2024 Bamboo flowsheet Neftaly Mcmanus DO Work Phone: [facility] Start: 04-11-2024 End: 04-11-2024 Office outpatient visit 25 minutes Neftaly Mcmanus DO Work Phone: [facility] Comment on above: Acute laryngitis (Pr imary Dx) Start: 04-11-2024 End: 04-11-2024 ambulatory NEFTALY MCMANUS Not Available Start: 03-20-2024 End: 03-20-2024 Office outpatient visit 25 minutes Neftaly Mcmanus DO Work Phone: [facility] Comment on above: Acute laryngitis (Pr imary Dx) Start: 03-20-2024 End: 03-20-2024 ambulatory NEFTALY MCMANUS Not Available Start: 03-20-2024 End: 03-20-2024 Bamboo flowsheet Neftaly Mcmanus DO Work Phone: [facility] Start: 03-20-2024 End: 03-20-2024 Bamboo flowsheet Neftaly Mcmanus DO Work Phone: [facility] Start: 03-09-2024 End: 03-09-2024 ambulatory [facility] Work Phone: Start: 03-09-2024 End: 03-09-2024 Patient encounter procedure [facility] Work Phone: Start: 12-09-2023 End: 12-09-2023 ambulatory [facility] Work Phone: Start: 12-09-2023 End: 12-09-2023 Patient encounter procedure [facility] Work Phone: Start: 09-30-2023 End: 09-30-2023 [facility] Work Phone: Start: 07-13-2023 Bamboo flowsheet Mary Anne Babb DPM Work Phone: [facility] Start: 07-13-2023 Bamboo flowsheet Mary Anne Babb DPM Work Phone: [facility] Start: 07-13-2023 End: 07-13-2023 Office outpatient visit 15 minutes Mary Anne Babb DPM Work Phone: [facility] Comment on above: Diabetic polyneuropa thy associated with type 2 diabetes mellitus (CMS/HCC) (Primary Dx); Hammer toes of both feet Start: 07-05-2023 End: 07-05-2023 Patient encounter procedure Freddy KRAUS [facility] Start: 09-07-2022 End: 09-07-2022 ambulatory German Miranda Other [facility] Other Start: 09-07-2022 Office outpatient vi sit 25 minutes Kamleroy Miranda [facility] Start: 07-08-2022 End: 07-08-2022 Subsequent hospital visit by physician Kinga Faustin PT [facility] Start: 07-08-2022 End: 07-08-[address] CHIKI MONIQUE Facility:[facility] Start: 05-19-2022 End: 05-21-2022 Subsequent hospital visit by physician [facility] Mammography Room [facility] Mammography Comment on above: Encounter for screen ing mammogram for malignant neoplasm of breast Start: 05-05-2022 End: 05-05-2022 ambulatory Charline Wilburn Other [facility] Other Start: 05-05-2022 Office outpatient vi sit 25 minutes Charline Wilburn [facility] Start: 04-13-2022 End: 04-13-2022 Patient encounter procedure Freddy KRAUS [facility] Start: 09-28-2021 End: 09-28-2021 ambulatory Anais Farley Other [facility] Other Start: 09-28-2021 Office outpatient vi sit 15 minutes Anais Farley [facility] Start: 09-27-2021 End: 09-28-[address] SUZANNE DOUGLAS Facility:[facility] Start: 09-25-2021 End: 09-25-2021 ambulatory Mary Anne Chan Other [facility] Other Start: 09-25-2021 Telephone encounter Isai Chan [facility] Start: 09-06-2021 End: 09-06-2021 ambulatory Charline Wilburn Other [facility] Other Start: 09-06-2021 Office outpatient vi sit 15 minutes Charlinedolores Wilburn [facility] Start: 08-12-2021 End: 08-12-2021 ambulatory Kamleroy Jacksonban Other [facility] Other Start: 08-12-2021 Office outpatient vi sit 15 minutes Kamal Chaban [facility] Start: 04-03-2020 End: 04-05-2020 Subsequent hospital visit by physician [facility] Mammography Room [facility] Mammography Comment on above: Visit for screening mammogram Start: 03-21-2020 End: 03-21-2020 Subsequent hospital visit by physician Suzanne Douglas [facility] Laboratory Start: 11-02-2019 End: 11-02-2019 Subsequent hospital visit by physician Suzanne Douglas [facility] Laboratory Comment on above: Hypercalcemia Start: 10-10-2019 End: 10-10-2019 Subsequent hospital visit by physician Suzanne Douglas [facility] Laboratory Comment on above: Essential hypertensi on, benign; Type 2 diabetes mellitus without complication, without long-term current use of insulin (HCC); Pure hypercholesterolemia Start: 03-14-2019 End: 03-14-2019 Subsequent hospital visit by physician Suzanne Douglas [facility] Laboratory Comment on above: Metallic taste; Disturbance of smell and taste Start: 02-15-2019 End: 02-17-2019 Subsequent hospital visit by physician [facility] Mammography Room [facility] Laboratory Comment on above: Encounter for screen ing mammogram for breast cancer Start: 05-18-2018 Patient encounter procedure PHYSICIA N NO [facility] Procedures Date Procedure Procedure Detail Performing Clinician Start: 10-17-2024 Comprehensive metabo lic panel Suzanne Douglas MD Work Phone: Start: 10-17-2024 Lipid panel Suzanne mora MD Work Phone: Start: 10-17-2024 Urine albumin quantitative Suzanne Douglas MD Work Phone: Start: 06-22-2024 Myocardial spect mul tiple studies Kraig Praterpeña DO Work Phone: Start: 06-02-2024 Basic metabolic pane l calcium total Carlos Aguayo MD Work Phone: Start: 06-02-2024 Ecg routine ecg w/le ast 12 lds w/i&r Carlos Aguayo MD Work Phone: Start: 06-02-2024 Colonoscopy Carlos Aguayo MD Work Phone: Start: 05-22-2024 End: 05-22-2024 Screening mammography bi 2-view breast inc cad Suzanne Douglas MD Work Phone: Start: 05-11-2024 Ecg routine ecg w/le ast 12 lds w/i&r Carlos Aguayo MD Work Phone: Start: 05-20-2023 Mammography Isai Babb DPMichael Work Phone: Start: 05-19-2022 Screening mammograph y [...] Blood count complete auto&auto difrntl wbc Jase Figueroan Work Phone: Start: 02-15-2019 Screening mammograph y bi 2-view breast inc cad Suzanne Douglas Work Phone: Start: 01-03-2019 Cystoscopy [facility] [place] Start: 11-04-2017 [place]ystoscopy [facility] [place] Start: 09-04-2016 [place]ystoscopy [facility] [place] Start: 08-09-2015 [place]ystoscopy [facility] [place] Start: 06-19-2013 Colonoscopy [facility] Room Start: 05-08-2013 Cystoscopy [facility] [place] Start: 05-09-2012 Cystoscopy [facility] [place] Start: 04-13-2011 Cystoscopy [facility] [place] Start: 04-11-2010 [place]ystoscopy [facility] [place] Start: 04-04-2009 Cystoscopy [facility] [place] Start: 12-29-2006 Colonoscopy Isai Babb DPM Work Phone: Start: 12-29-2006 Colonoscopy [facility] [place] BREAST BIOPSY X2 LEF T BREAST Freddy COOK D&C X2 Freddy KRAUS MASS REMOVAL RIGHT EAR Edgard KRAUS NECK MASS REMOVAL Freddy CASAS Plan of Treatment Date Care Activity Detail Author Start: 06-02-2034 Screening for malignant neoplasm of colon [facility] [employer] Start: 10-17-2025 GFR test (Diabetes, CKD 3-4, OR last GFR 15-59) GFR test (Diabetes, CKD 3-4, OR last GFR 15-59) [email or web address] Start: 10-17-2025 Hemoglobin A1c measurement A1C test (Diabetic or Prediabetic) [email or web address] Start: 10-17-2025 Lipid panel Lipids [email or web address] Start: 10-17-2025 Urine screening for protein Diabetic Alb to Cr ratio (uACR) test [facility] [employer] Start: 09-11-2025 End: 09-11-2025 Patient encounter procedure 09/11/2025 9:00 AM EDT Procedure Visit [facility] [address] [place] [phone] Mary Anne Babb, DPMichael [address] [place] [address] [facility] Start: 07-24-2025 Depression Screen Depression Screen [email or web address] Start: 06-06-2025 Glaucoma screening Diabetic retinal exam [facility] [employer] Start: 06-02-2025 GFR test (Diabetes, CKD 3-4, OR last GFR 15-59) GFR test (Diabetes, CKD 3-4, OR last GFR 15-59) [email or web address] Start: 05-22-2025 Screening for malignant neoplasm of breast [facility] [employer] Start: 04-13-2025 Annual Wellness Visit (Medicare) Annual Wellness Visit (Medicare) [email or web address] Start: 04-12-2025 Depression Screen Depression Screen [facility] [employer] Start: 01-15-2025 End: 01-15-2025 Patient encounter procedure 01/15/2025 10:30 AM EDT Office Visit [facility] [address] [facility] [place] [address] Kraig Alford DO [address] [facility] [place] [address] 6 month f/u [facility] Comment on above: 6 month f/u Start: 10-24-2024 End: 10-24-2024 Patient encounter procedure 10/24/2024 10:00 AM EDT Office Visit [facility] [address] [place] [phone] Suzanne Douglas MD [address] [place] [address] DM, HTN, Hyperlipidemia. [facility] Comment on above: DM, HTN, Hyperlipidemia. Start: 10-17-2024 End: 10-17-2024 Patient encounter procedure 10/17/2024 9:30 AM EDT Office Visit [facility] [address] [facility] [place] [address] Kraig Alford DO [address] [place] [address] 4 month f/u [facility] Comment on above: 4 month f/u Start: 10-06-2024 Diabetic foot examination Diabetic foot exam [facility] Start: 10-03-2024 GFR test (Diabetes, CKD 3-4, OR last GFR 15-59) GFR test (Diabetes, CKD 3-4, OR last GFR 15-59) [facility] Start: 10-03-2024 Lipid panel Lipids [facility] Start: 10-03-2024 Urine screening for protein Diabetic Alb to Cr ratio (uACR) test [facility] Start: 09-11-2024 End: 09-11-2024 Patient encounter procedure 09/11/2024 1:45 PM EDT Procedure Visit [facility] [address] [facility] [place] [place] [phone] Mary Anne Babb, DPM [address] [place] [address] Arrived [facility] Comment on above: Arrived Start: 07-13-2024 Hemoglobin A1c measurement A1C test (Diabetic or Prediabetic) [facility] Start: 07-13-2024 End: 07-13-2024 Patient encounter procedure 07/13/2024 9:00 AM EST Office Visit [facility] [address] [place] [phone] Suzanne Douglas MD [address] [place] [address] 3 months (around 07/13/2024) for DM, HTN, Hyperlipidemia [facility] Comment on above: 3 months (around 07/13/2024) for DM, HTN, Hyperlipidemia Start: 06-02-2024 End: 06-02-2025 Extended cardiac holter monitor (3 days-14 day) [facility] Comment on above: Expected: 06/02/2024, Expires: 1 Occurrences starti ng 06/02/2024 until 06/02/2024 Start: 06-02-2024 End: 06-02-2024 Admission to same day surgery center 06/02/2024 7:30 AM EST - 06/02/2024 7:59 AM EST Surgery [facility] [address] [place] [address] Carlos Aguayo MD [address] [place], [place] [id number] COLONOSCOPY [facility] Comment on above: COLONOSCOPY Start: 06-02-2024 Subsequent hospital visit by physician 06/02/2024 7:30 AM EST Hospital Encounter [facility] [address] [place] [address] Carlos Aguayo MD [address] [place], [place] [id number] [facility]oscopy Start: 06-02-2024 End: 06-02-2024 Colonoscopy flx dx w/collj spec when pfrmd [facility] Start: 05-20-2024 Screening for malignant neoplasm of breast [facility] Start: 05-19-2024 Screening for malignant neoplasm of breast Breast cancer screen [facility] Start: 04-11-2024 End: 04-11-2024 Patient encounter procedure 04/11/2024 10:00 AM EST Office Visit [facility] [address] [place] [place] [address] Neftaly Mcmanus, DO [address] [place] [address] [facility] Start: 03-20-2024 End: 03-20-2024 Patient encounter procedure 03/20/2024 3:30 PM EDT Office Visit [facility] [address] [place] [address] Neftaly Mcmanus, DO [address] [place] [address] Arrived [facility] Comment on above: Arrived Start: 01-30-2024 COVID-19 Vaccine ( season) COVID-19 Vaccine ( season) [facility] Start: 01-30-2024 COVID-19 Vaccine ( season) COVID-19 Vaccine ( season) [facility] Start: 01-30-2024 Influenza vaccination Influenza Vaccine (#1) [facility] Start: 07-13-2023 End: 07-13-2023 Patient encounter procedure 07/13/2023 9:45 AM EST Office Visit [facility] [address] [place] [phone] Mary Anne Babb, DPMichael [address] [place] [address] Arrived [facility] Comment on above: Arrived Start: 07-01-2023 Depression Screen Depression Screen [facility] [employer] Start: 06-19-2023 Colon cancer screen colonoscopy Colon cancer screen colonoscopy [place] Start: 06-19-2023 Screening for malignant neoplasm of colon [facility] Start: 06-02-2023 Glaucoma screening Diabetic retinal exam [facility] Start: 04-14-2023 Diabetic foot examination Diabetic foot exam [facility] [employer] Start: 04-14-2023 Hemoglobin A1c measurement A1C test (Diabetic or Prediabetic) [facility] Start: 04-12-2023 Cervical cancer screen Cervical cancer screen [place] Start: 04-12-2023 Screening for malignant neoplasm of cervix Cervical cancer [place] Start: 01-14-2023 Depression Screen Depression Screen [facility] Start: 10-13-2022 End: 10-13-2022 Patient encounter procedure 10/13/2022 Office Visit Family Medicine Suzanne Douglas MD [address] [place] [address] [facility] Start: 06-30-2022 Annual Wellness Visit (AWV) Annual Wellness Visit (AWV) [facility] Start: 06-10-2022 Diabetic retinal exam Diabetic retinal exam [facility] [employer] Start: 04-08-2022 Pneumococcal 50+ years Vaccine (2 of 2 - PCV) Pneumococcal 50+ years Vaccine (2 of 2 - PCV) [facility] Start: 04-08-2022 Pneumococcal 65+ years Vaccine (2 of 2 - PCV) Pneumococcal 65+ years Vaccine (2 of 2 - PCV) [facility] Start: 04-08-2022 Pneumococcal Vaccine: 65+ Years (2 - PCV) Pneumococcal Vaccine: 65+ Years (2 - PCV) [facility] Start: 04-08-2022 Pneumococcal Vaccine: 65+ Years (2 of 2 - PCV) Pneumococcal Vaccine: 65+ Years (2 of 2 - PCV) [facility] Start: 04-08-2022 Urine screening for protein [facility] Start: 04-03-2022 Screening for malignant neoplasm of breast Breast cancer screen [place] Start: 10-03-2021 GFR test (Diabetes, CKD 3-4, OR last GFR 15-59) GFR test (Diabetes, CKD 3-4, OR last GFR 15-59) [facility] Start: 10-03-2021 Lipid panel Lipids [facility] Start: 07-25-2021 COVID-19 Vaccine (3 - Booster for Patricia series) COVID-19 Vaccine (3 - Booster for Patricia series) [facility] Start: 02-15-2021 Breast cancer screen Breast cancer screen [place] Start: 02-15-2021 Screening for malignant neoplasm of breast Breast cancer screen [place] Start: 10-09-2020 Creatinine measurement Creatinine monitoring [place], [place] Start: 10-09-2020 HbA1c (Bld) [Mass fraction] A1C test (Diabetic or Prediabetic) [place] Start: 10-09-2020 Lipid panel Lipid screen [place] Start: 10-09-2020 Potassium monitoring Potassium monitoring [place] Start: 06-30-2020 Diabetic retinal exam Diabetic retinal exam [place], [place] Start: 04-11-2020 Diabetic microalbuminuria test Diabetic microalbuminuria test [place] Start: 04-11-2020 HbA1c (Bld) [Mass fraction] A1C test (Diabetic or Prediabetic) [place] Start: 04-10-2020 End: 04-10-2020 Office Visit 04/10/2020 Office Visit Family Medicine Suzanne Douglas MD [address] [place], [place] [phone] [facility] Start: 01-30-2020 Influenza vaccination Flu vaccine (#1) [place] Start: 01-06-2020 Breast cancer screen Breast cancer screen [place] Start: 10-05-2019 [object Object] Diabetic foot exam [place] Start: 10-05-2019 A1C test (Diabetic or Prediabetic) A1C test (Diabetic or Prediabetic) [place] Start: 10-05-2019 Diabetic foot examination Diabetic foot exam [place] Start: 06-03-2019 Diabetic retinal exam Diabetic retinal exam [place] Start: 04-12-2019 Creatinine measurement Creatinine monitoring [place] Start: 04-12-2019 Creatinine monitoring Creatinine monitoring [place] Start: 04-12-2019 Lipid panel Lipid screen [place] Start: 04-12-2019 Lipid screen Lipid [place] Start: 04-12-2019 Potassium monitoring Potassium monitoring [place] Start: 04-11-2019 End: 04-11-2019 Office Visit 04/11/2019 [facility] [address] [place], [place] 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 Healthcare Agent Relationshi p Communication Valentino Weidenger Spouse Primary Decision Maker [phone] (Mobile) Healthcare Agents on File Name Relationship Healthcare Agent Relationshi p Communication Valentino Weidenger Spouse Primary Decision Maker [phone] (Mobile) Advance Directive Response Recorded Date/ Time Advance Directives No April 12:29pm Date Activated Date Inactivated Comments 06/19/2013 7:02 AM 06/19/2013 4:52 PM Healthcare Agents on File Name Relationship Healthcare Agent Relationship Communication Valentino Weidenger Spouse Primary Decision Maker [phone] (Mobile) Healthcare Agents on File Name Relationship Healthcare Agent Relationship Communication Valentino Weidenger Spouse Primary Decision Maker [phone] (Mobile) Date Activated Date Inactivated Comments 06/02/2024 6:40 AM Healthcare Agents on File Name Relationship Healthcare Agent Relationship Communication Valentino Weidenger Spouse Primary Decision Maker [phone] (Mobile) Advance Directive Response Recorded Date/ Time Advance Directives No June 08, 2024 11:06am Healthcare Agents on File Name Relationship Healthcare Agent Relationship Communication Valentino Weidenger Spouse Primary Decision Maker [phone] (Mobile) Healthcare Agents on File Name Relationship Healthcare Agent Relationship Communication Valentino Weidenger Spouse Primary Decision Maker [phone] (Mobile) Healthcare Agents on File Name Relationship Healthcare Agent Relationship Communication Valentino Weidenger Spouse Primary Decision Maker [phone] (Mobile) Healthcare Agents on File Name Relationship Healthcare Agent Relationship Communication Valentino Weidenger Spouse Primary Decision Maker [phone] (Mobile) Date Activated Date Inactivated Comments 06/02/2024 6:40 AM 06/02/2024 11:09 AM Date Activated Date Inactivated Comments 06/19/2013 7:02 AM 06/19/2013 4:52 PM Healthcare Agents on File Name Relationship Healthcare Agent Relationship Communication Valentino Weidenger Spouse Primary Decision Maker [phone] (Mobile) Assessments Diagnosis Metallic taste Disturbances of [...] RENEE DIGITAL SCREEN BILATERAL Suzanne Douglas MD [address] [place] [address] [facility] [address] [place] [address] Status Reason Specialty Diagnoses / Procedures Referre d By Contact Referred To Contact Closed Radiology Diagnoses Encounter for screening mammogram for breast cancer Procedures THIERNO DIGITAL SCREEN W OR WO CAD BILATERAL Suzanne Douglas MD [address] [place] [address] Specialty Diagnoses / Procedures Referred By Contac t Referred To Contact Radiology Diagnoses Encounter for screening mammogram for malignant neoplasm of breast Procedures THIERNO RENEE DIGITAL SCREEN BILATERAL Suzanne Douglas MD [address] [place] [address] Referral ID Status Reason Start Date Expiration Date Visits Re quested Visits Authorized [id number] Closed 04/15/2022 04/15/2023 1 1 Specialty Diagnoses / Procedures Referred By Contac t Referred To Contact Cardiology Diagnoses Pre-op testing Procedures EKG 12 Lead BackCarlos MD [address] [place] [address] Referral ID Status Reason Start Date Expiration Date Visits Re quested Visits Authorized [id number] Open 05/18/2024 05/18/2025 1 1 Referral ID Status Reason Start Date Expiration Date Visits Re quested Visits Authorized [id number] Closed 05/20/2024 05/20/2025 1 1 Specialty Diagnoses / Procedures Referred By Contac t Referred To Contact Diagnoses Sinus bradycardia Sinus pause Procedures Extended cardiac holter monitor (3 days-14 day) HI EXTERNAL ECG REC>48HR<7D REVIEW & INTERPRETATION HI EXTERNAL ECG REC>48HR<7D RECORDING HI EXTERNAL ECG REC>7D<15D RECORDING HI EXTERNAL ECG REC>7D<15D REVIEW & INTERPRETATION Carlos Aguayo MD [address] [place] [address] Referral ID Status Reason Start Date Expiration Date V isits Requested Visits Authorized [id number] Not Required - RTA 06/02/2024 06/02/2025 1 1 Specialty Diagnoses / Procedures Referred By Contac t Referred To Contact Cardiology Diagnoses Chest pain, unspecified type Shortness of breath Procedures Echo (TTE) complete (PRN contrast/bubble/strain/3D) HI ECHO TTHRC R-T 2D W/WOM-MODE COMPL SPEC&COLR D HI TTE W OR WO FOL WCON,DOPPLER Kraig Alford DO [address] [place] [address] Referral ID Status Reason Start Date Expiration Date V isits Requested Visits Authorized [id number] Not Required - RTA 06/21/2024 06/21/2025 1 [...] sinus drainag e Chief 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 Asthma, Allergic Rhinitis June [...] section and content) DATE CREATED AUTHOR 05/21/2018 [facility] DATE CREATED AUTHOR AUTHOR'S ORGANIZ ATION 10/18/2021 [facility] DATE CREATED AUTHOR AUTHOR'S ORGANIZ ATION 07/09/2022 [facility] DATE CREATED AUTHOR AUTHOR'S ORGANIZ ATION 08/15/2024 [facility] DATE CREATED AUTHOR AUTHOR'S ORGANIZ ATION 08/20/2024 [facility] DATE CREATED AUTHOR AUTHOR'S ORGANIZ ATION 09/12/2024 [facility] DATE CREATED AUTHOR AUTHOR'S ORGANIZ ATION 10/18/2024 [facility] Reason for Visit (unrecogniz ed section and content) Status Reason Specialty Diagnoses / Procedures Referre d By Contact Referred To Contact Closed Radiology Diagnoses Visit for screening mammogram Procedures THIERNO RENEE DIGITAL SCREEN BILATERAL Suzanne Douglas MD [address] [place] [id number] [facility] [address] [place] [address] Status Reason Specialty Diagnoses / Procedures Referre d By Contact Referred To Contact Closed Radiology Diagnoses Encounter for screening mammogram for breast cancer Procedures THIERNO DIGITAL SCREEN W OR WO CAD BILATERAL Suzanne Douglas MD [address] [place] [address] Specialty Diagnoses / Procedures Referred By Contac t Referred To Contact Radiology Diagnoses Encounter for screening mammogram for malignant neoplasm of breast Procedures THIERNO RENEE DIGITAL SCREEN BILATERAL Suzanne Douglas MD [address] [place] [address] Referral ID Status Reason Start Date Expiration Date Visits Re quested Visits Authorized [id number] Closed 04/15/2022 04/15/2023 1 1 Specialty Diagnoses / Procedures Referred By Contac t Referred To Contact Physical Therapist / Physical Therapy Diagnoses Acute pain of right shoulder Suzanne Douglas MD [address] [place] [address] [facility] [address] [place] [address] Referral ID Status Reason Start Date Expiration Date V isits Requested Visits Authorized [id number] Open Specialty Services Required 07/01/2022 07/01/2023 1 1 Reason Comments DM Foot Care Here for yearly diab etic foot check. Reason Comments Cough Established patient, cough Reason Comments Cough 3 week tavia Referral ID Status Reason Start Date Expiration Date Visits Re quested Visits Authorized [id number] Closed 05/20/2024 05/20/2025 1 1 Specialty Diagnoses / Procedures Referred By Manoj castaneda Referred To Contact Diagnoses Encounter for screening colonoscopy Encounter for screening colonoscopy [Z12.11] Procedures HI COLONOSCOPY FLX DX W/COLLJ SPEC WHEN PFRMD HI COLSC FLX W/RMVL OF TUMOR POLYP LESION SNARE TQ HI COLONOSCOPY W/BIOPSY SINGLE/MULTIPLE COLONOSCOPY Carlos Aguayo MD [address] [place] [address] [facility] [address] [place] [address] Referral ID Status Reason Start Date Expiration Date Visits Re quested Visits Authorized [id number] 1 1 Specialty Diagnoses / Procedures Referred By Manoj castaneda Referred To Contact Cardiology Diagnoses Chest pain, unspecified type Shortness of breath Procedures Echo (TTE) complete (PRN contrast/bubble/strain/3D) HI ECHO TTHRC R-T 2D W/WOM-MODE COMPL SPEC&COLR D HI TTE W OR WO FOL WCON,DOPPLER Kraig Alford DO [address] [place] [address] Referral ID Status Reason Start Date Expiration Date V isits Requested Visits Authorized [id number] Not Required - RTA 06/21/2024 06/21/2025 1 1 Reason Comments Follow-up [facility] Patient Care team informatio n (unrecognized section and content) Diplomatic Interpreter/Translator Relationship Specialty Start Date End Date Suzanne Douglas MD [address] [place] [address] PCP - General Family Medicine 10/27/17 Diplomatic Interpreter/Translator Relationship Specialty Start Date End Date Suzanne Douglas MD [address] [place] [address] PCP - General Family Medicine 10/27/17 Diplomatic Interpreter/Translator Relationship Specialty Start Date End Date Suzanne Douglas MD [address] [place] [id number] PCP - General Family Medicine 07/13/23 Diplomatic Interpreter/Translator Relationship Specialty Start Date End Date Suzanne Douglas MD [address] [place] [id number] PCP - General Family Medicine 07/13/23 Team [...] March 09, 2024 End: March 09, 2024 Diplomatic Interpreter/Translator Relationship Specialty Start Date End Date Suzanne Douglas MD [address] [place] [address] PCP - General Family Medicine 07/13/23 Haider Lopez MD [address] [place] [address] Referring Physician Family Medicine 03/20/24 Neftaly Mcmanus DO [address] [place] [address] Otolaryngology 03/20/24 Diplomatic Interpreter/Translator Relationship Specialty Start Date End Date Suzanne Douglas MD [address] [place] [phone] PCP - General Family Medicine 07/13/23 Haider Lopez MD [address] [place] [address] Referring Physician Family Medicine 03/20/24 Neftaly Mcmanus DO [address] [place] [address] Otolaryngology 03/20/24 Diplomatic Interpreter/Translator Relationship Specialty Start Date End Date Suzanne Douglas MD [address] [place] [address] PCP - General Family Medicine 07/13/23 Haider Lopez MD [address] [place] [address] Referring Physician Family Medicine 03/20/24 Neftaly Mcmanus DO [address] [place] [address] Otolaryngology 10/21/24 Diplomatic Interpreter/Translator Relationship Specialty Start Date End Date Verhoff, Suzanne L, MD [address] [place] [address] PCP - General Family Medicine 10/27/17 Diplomatic Interpreter/Translator Relationship Specialty Start Date End Date Suzanne Douglas MD [address] [place] [phone] PCP - General Family Medicine 10/27/17 Diplomatic Interpreter/Translator Relationship Specialty Start Date End Date Suzanne Douglas MD [address] [place] [phone] PCP - General Family Medicine 10/27/17 Diplomatic Interpreter/Translator Relationship Specialty Start Date End Date Suzanne Douglas MD [address] [place], [place] [phone] PCP - General Family Medicine 10/27/17 Team Status: Inactive Member Role Status Dates Suzanne Douglas MD Primary Care Provider Active Start: June 08, 2024 End: June 08, 2024 Blaise Lassiter DO Attending Provider Active St art: June 08, 2024 End: June 08, 2024 Diplomatic Interpreter/Translator Relationship Specialty Start Date End Date Suzanne Douglas MD [address] [place] [id number] PCP - General Family Medicine 10/27/17 Diplomatic Interpreter/Translator Relationship Specialty Start Date End Date Suzanne Douglas MD [address] [place] [address] PCP - General Family Medicine 10/27/17 Diplomatic Interpreter/Translator Relationship Specialty Start Date End Date Suzanne Douglas MD [address] [place] [id number] PCP - General Family Medicine 10/27/17 Diplomatic Interpreter/Translator Relationship Specialty Start Date End Date Suzanne Douglas MD [address] [place] [phone] PCP - General Family Medicine 10/27/17 Diplomatic Interpreter/Translator Relationship Specialty Start Date End Date Suzanne Douglas MD [address] [place], [place] [phone] PCP - General Family Medicine 07/13/23 Haider Lopez MD [address] [place] [phone] Referring Physician Family Medicine 03/20/24 Neftaly Mcmanus DO [address] [place] [phone] Otolaryngology 03/20/24 Blaise Lassiter MD [address] [place] [address] Referring Physician Pulmonary Disease 07/19/24 Diplomatic Interpreter/Translator Relationship Specialty Start Date End Date Suzanne Douglas MD [address] [place], [place] [phone] PCP - General Family Medicine 07/13/23 Haider Lopez MD [address] [place] [phone] Referring Physician Family Medicine 03/20/24 Neftaly Mcmanus DO [address] [place] [address] Otolaryngology 03/20/24 Balise Lassiter MD [address] [place] [address] Referring Physician Pulmonary Disease 07/19/24 Diplomatic Interpreter/Translator Relationship Specialty Start Date End Date Suzanne Douglas MD [address] [place] [address] PCP - General Family Medicine 10/27/17 Goals [...] BE BASED ON THE PRIMARY CLINICAL RECORDS. [employer] provides no warranty or guarantee of the accuracy or completeness of information in this document.
== END 2024-11-02 07:45 | disposition home or self-care (01) ==
LOC: CT 07:45
PROVIDERS: PCP Family Medicine; Visit Provider Internal Medicine
DX: R05.3 Chronic cough (principal); R76.8 Other specified abnormal immunological findings in serum; D72.19 Other eosinophilia
CPT/HCPCS: 71250

== ENCOUNTER 2025-05-08 10:04 | Outpatient (OUT) | payer MEDICARE, SELFPAY ==
--- NOTE | 2025-05-08 10:10 | CT_ITS ---
The [address] [address] Patient Name: TULIO HARGROVE MRN: [id number] date: 1955 Sex: F Assigned Patient Location: CT Current Patient Location: CT Accession/Order Number: [id number] Exam Date: 05/08/2025 10:28 Report Date: 05/08/2025 17:59 At the request of: JODIE CEDEÑO DO Procedure: CT chest wo con CT CHEST WITHOUT IV CONTRAST: CLINICAL HISTORY: Multiple Pulmonary Nodules COMPARISON: 11/02/2024 TECHNIQUE: Spiral images were obtained through the chest without IV contrast. This CT exam was performed using one or more following dose reduction techniques: Automated exposure control, adjustment of the mA and/or kV according to patient size, or use of iterative reconstruction technique. FINDINGS: Mediastinum:Cardiac megaly. Triple vessel coronary artery calcifications. Trace pericardial fluid. No pathologically enlarged mediastinal or hilar adenopathy. Lungs:Lungs are clear. No focal disc desiccation or pneumothorax. Minimal groundglass opacity within the subpleural aspect of the right lateral frontal lobe noted of doubtful clinical significance. Stable basilar predominant nodularity including a subpleural nodule left lower lobe currently 1 cm in size, producing 9 mm, not significant changed. Minimal nodularity left lower lobe 4 mm in size. C3 over size, not significantly changed. 8mm nodule right lower lobe, previously 6 mm also NOT significantly change. There is minimal predominantly granulomatous calcified nodules within the medial aspect of the right middle lobe likely chronic finding. Abd:Cholecystectomy. Focal liver lesion noted near the falciform ligaments 2.1 cm in size this may present a cyst versus focal fatty replacement. Consider ultrasound. Soft tissues/Bones: Multilevel degenerative changes throughout the thoracic spine. [] CT/CT chest wo con IMPRESSION: Stable bibasilar predominance pulmonary nodules. These measure slightly larger as examination is thought to be due to differences in technique rather than true progression. Continued surveillance recommended. Focal hypoattenuation involving the liver noted 2.1 cm in size possibly cysts of focal fatty replacement. This can be further characterize with ultrasound when clinically feasible. Impression dictated by: Ramana Olivera M.D. 05/08/2025 5:59 PM Dictation Location: [id number] Electronically authenticated by: [id number] Y Date: 05/08/2025 17:59
--- OUTSIDE RECORDS SUMMARY | 2025-05-08 10:11 | XMS_ITS | CCD ---
Author Organization [facility] Care Team Providers Care Rn Chemical Dependency Name Role Phone NO, PHYSICIAN Unavailable Unavailable Suzanne Garcia Primary Care Provider Suzanne Garcia Primary Care Provider [phone] German Miranda Unavailable Charline Wilburn Unavailable Anais Farley Unavailable Mary Anne Chan Unavailable [phone] SUZANNE GARCIA Primary Care Physician Suzanne Garcia MD Primary Care Provider DR CHIKI MONIQUE Admitting Unavailable MISC, DR ZEPEDA Primary Care Unavailable ENEIDA, DR MONET Consulting Unavailable ENEIDA, DR MONET Attending Unavailable VERHOFF, DR SUZANNE Rosales Consulting Unavailable VERHOALIN, DR SUZANNE Rosales Attending Unavailable VERHOALIN, DR SUZANNE Rosales Admitting Unavailable Suzanne Garcia MD Primary Care Provider John WHITNEY, Haider Unavailable Neftaly Mcmanus DO Unavailable Suzanne Garcia MD Primary Care Provider Freddy KRAUS Admitting Unavailable Freddy KRAUS Attending Unavailable Freddy KRAUS Referring Unavailable Blaise Lassiter MD Unavailable Blaise Lassiter MD Unavailable SUZANNE GARCIA Primary Care Unavailable BACK, CARLOS Referring Unavailable SUZANNE GARCIA Primary Care Unavailable BACK, CARLOS Admitting Unavailable [...] Unavailable VERHOFF, SUZANNE L Primary Care Unavailable Stella WHITNEY, Suzanne Rosales Primary Care Provider Haider Lopez MD Unavailable [facility] [place] Unavailable MARY ANNE GARCIA Attending UnavailMARY ANNE Rodriguez Attending UnavailNEFTALY Vivar Attending Unavailable HAIDER LOPEZ Referring Unavailable Allergies Allergy ClassificationReported Allergen(s)Allergy TypeDate of OnsetReaction(s) Facility (20 sources)LosartanDrug [id number]montelukast; Translations: [montelukast]Drug Ezvrzfj25-05-2518Ircw, hives, Urticaria (disorder)[place], [place] (2 sources)montelukast; Translations: [Singulair]Drug Jrmozgj64-06-6079[facility] Medications Current Medications MedicationDrug Class(es)DatesSig (Normalized)Sig (Original)Acetaminophen / oxyCODONE (3 sources)Opioid AgonistStart: 34-76-3094Qvibm 500 mg-5 mg Cap 1 cap(s), Oral, q4hr as needed for pain, 20 tab(s), Refill(s) 0 Start Date: 04/21/11 Status: OrderedStart: 12-71-8909Zemsm 500 mg-5 mg Cap 1 cap(s), Oral, q4hr PRN as needed for pain, 20 tab(s), Refill(s) 0, 0, PrintRequisition Start Date: 04/21/11 Status: [id number] 200 actuat albuterol 0.09 mg/actuat metered dose inhaler (20 sources)beta2-Adrenergic AgonistStart: 81-18-2340Azzqzqxlf Sulfate (Proair Hfa) 90 mcg/actuation HFA aerosol inhaler Active 2 INH INHALATION Every 4hours as needed September 22, 2023 11:00pmStart: 35-98-8526vozj 2 puff(s) by inhalation every four hours as neededAlbuterol Sulfate HFA 108 (90 Base) MCG/ACT 2 puffs as needed Inhalation every 4 hrs Aug, ActiveStart: 83-36-1630rqmj 1-2 puff(s) by inhalation every four hours as neededProAir HFA 108 (90 Base) MCG/ACT 1-2 puff as needed Inhalation every 4 hrs Dec, ActiveStart: 06-24-2017 take 2 puff(s) by inhalation every six hours as needed for wheezingalbuterol sulfate HFA (PROAIR HFA) 108 (90 Base) MCG/ACT inhaler Inhale 2 puffs into the lungs every 6 hours as needed for Wheezing or Shortness of Breath 1 Inhaler 3 06/24/2017 ActiveStart: 05-31-5484qhys 2 puff(s) by inhalation every six hours as needed for wheezingalbuterol sulfate HFA (PROAIR HFA) 108 (90 Base) MCG/ACT inhaler Inhale 2 puffs into the lungs every 6 hours as needed for Wheezing or Shortness of Breath 1 Inhaler 3 06/24/2017 Active End: 73-40-0044pmah 2 puff(s) by inhalation once daily in the morningalbuterol sulfate HFA (PROVENTIL HFA) 108 (90 Base) MCG/ACT inhaler Inhale 2 puffs into the lungs every morning 06/02/2024 Discontinued (Stop Taking at Discharge)Apo- Fluticasone Propionate 0.05 mg/inh nasal spray (3 sources)Start: 86-50-1953wnpa 2 spray(s) nasal route once dailyApo- Fluticasone Propionate 0.05 mg/inh nasal spray 2 SPRAYS EACH NOSTRIL, Nasal, Daily, Refill(s) 0Start Date: 04/15/11 Status: Orderedascorbic acid 500 mg chewable tablet (20 sources)Vitamin Ctake 1 tablet by mouth once dailyAscorbic Acid (vitamin C) 500 MG tablet Take 1 tablet by mouth Daily Activeascorbic acid 60 mg / beta carotene 5000 unt / copper sulfate 40 mg / dl-alpha tocopheryl acetate 30 unt / sodium selenite 0.04 mg / zinc oxide 40 mg oral tablet (2 sources)Vitamin Ctake 1 tablet by mouth once dailyMultiple Vitamins-Minerals (THERAPEUTIC MULTIVITAMIN-MINERALS) tablet Take 1 tablet by mouth daily.0 Active azelastine hydrochloride 0.206 mg/actuat metered dose nasal spray (1 source)Histamine-1 Receptor Antagonisttake 1 spray(s) nasal route once daily azelastine HCl (ASTEPRO) 0.15 % SOLN by Nasal route 1 spray each nostril daily Activeazithromycin 250 mg oral tablet (2 sources)Macrolide AntimicrobialStart: 08-52-0166Iwkxntmbazux 250 MG 2 tablets on the first day, then 1 tablet daily for 4 days Orally Once a day for 5 day(s) Aug, Activebenzonatate 200 mg oral capsule (10 sources)Non-narcotic AntitussiveStart: 33-42-9250wfkn 1 capsule by mouth every eight hoursBenzonatate 200 MG 1 capsule Orally Three times a day for 10 day(s) Aug, ActiveStart: 07-91-3392syuc 1 capsule by mouth three times daily as needed for coughbenzonatate (TESSALON) 100 MG capsule TAKE 1 CAPSULE BY MOUTH THREE TIMES A DAY NEEDED FOR COUGH0 08/28/2019 Activecalcium carbonate 500 mg oral tablet (2 sources)take 1 tablet by mouth once dailycalcium carbonate (OSCAL) 500 MG TABS tablet Take 500 mg by mouth daily 0 Activecalcium chloride 0.0014 meq/ml / potassium chloride 0.004 meq/ml / sodium chloride 0.103 meq/ml / sodium lactate 0.028 meq/ml injectable solution (1 source)Start: 91-90-1394KudtdIXHjwv, at 75 mL/hr, CONTINUOUS, Starting on Wed06/02/24 at 0700, Pre-procedure(GI)cetirizine hydrochloride 10 mg oral tablet (20 sources)Histamine-1 Receptor Antagonisttake 1 tablet by mouth once daily cetirizine (ZyrTEC) 10 MG tablet Take 1 tablet by mouth Daily Active chlorhexidine gluconate 1.2 mg/ml mouthwash (2 sources)Start: 10-33-6752pejicvkwkafaa (PERIDEX) 0.12 % solution RINSE WITH 1/2FL OZ EVERY 8 HOURS, HOLD FOR 60 SECONDS THENSPIT OUT 1 08/16/2018 Active Chondroitin Sulfates / Glucosamine (20 sources)GLUCOSAMINE-CHONDROITIN PO Take by mouth ActiveGLUCOSAMINE- CHONDROITIN PO Take by mouth 0 ActiveCinnamon Preparation (20 sources)Non-Standardized Food Allergenic Extracttake 1 tablet by mouth once dailyCinnamon 500 MG TABS Take by mouth daily ActiveCINNAMON PO Take by mouth ActiveCINNAMON PO Take by mouth 0 Activetake 1 tablet by mouth once daily Cinnamon 500 MG TABS Take by mouth daily 0 Activeciprofloxacin 500 mg oral tablet (4 sources)Quinolone AntimicrobialStart: 94-99-0624Adltr 500 mg Tab See Instructions, Take 1 tab day prior to procedure and 1 tab day of procdure - aft erwards, # 2 tab(s), Refills(s) 0, Pharmacy: [facility]/pharmacy #[id number] Start Date: 06/19/24 Status: OrderedStart: 48-34-8553Qhaor 500 mg Tab See Instructions, Take 1 tab day prior to procedure and 1 tab day of procdure - afterwards, # 2 tab(s), Refills(s) 0, Pharmacy: [facility]/pharmacy #[id number] Start Date: 06/03/23 Status: Ordered Start: 29-92-3701Drkjj 500 mg Tab See Instructions, Take 1 tab day prior to procedure and 1 tab day of procdure - afterwards, # 2 tab(s), Refills(s) 0, Pharmacy: [facility]/pharmacy #[id number], 165, cm, 04/03/21 14:42:00 EDT, Height/Length Dosing, 105.9, kg, 04/03/21 14:42:00 EDT, Weight Dosing Start Date: 03/24/22 Status: Ordereddocosahexaenoic acid 120 mg / eicosapentaenoic acid 180 mg oral capsule (20 sources)take 3 capsules by mouth once dailyomega-3 (Fish Oil) 1000 MG capsule Take 3 capsules by mouth Daily Activedocosahexaenoic acid 1000 mg / omega-3 acid ethyl esters ([facility]) 300 mg delayed release oral capsule (3 sources)[place]-3 Fatty Acids (FISH OIL) 1000 MG CPDR Take by mouth daily. 0 Activedoxycycline monohydrate 100 mg oral capsule (1 source)Tetracycline-class DrugStart: 67-57-5422tpjm 1 capsule by mouth every twelve hoursDoxycycline Monohydrate 100 MG 1 capsule Orally every 12 hrs for 10 days September, Activeesomeprazole 40 mg delayed release oral capsule (20 sources)Proton Pump InhibitorStart: 04-15-2011 End: 22-42-8724xnhe 1 capsule by mouth before mealtimeesomeprazole (NexIUM) [address] capsule Take 40 mg by mouth in the morning. Take before meals. 09/30/2023 ActiveFish Oils (10 sources)Start: 10-13-7423Lnhz Oil Oral Start Date: 01/03/19 Status: Ordered take 1 capsule by mouth once dailyFish Oil 1000 MG 1 capsule Orally Once a day Niscat82 actuat fluticasone furoate 0.1 mg/actuat dry powder inhaler (19 sources)CorticosteroidStart: 03-13-2024 End: 36-91-6459ysjefhxuuer (ARNUITY ELLIPTA) 100 MCG/ACT AEPB One puff BID and rinse after use 1 each 1 Discontinued (Stop Taking at Discharge)Start: 10-07-2021 End: 58-17-0842pymr 2 puff(s) by inhalation twice dailyfluticasone (FLOVENT HFA) 220 MCG/ACT inhaler Inhale 2 puffs into the lungs 2 times daily 12 g 0 02/202210/07/2022 ActiveArnuity Ellipta 100 MCG/ACT inhaler Activefluticasone (FLONASE) 50 MCG/ACT nasal spray 2 sprays by Nasal route daily Activeglimepiride 4 mg oral tablet (20 sources)SulfonylureaStart: 07-94-5354areu 1 tablet by mouth once daily in the morningglimepiride (AMARYL) 4 MG tablet TAKE 1 TABLET BY MOUTH EVERY DAY IN THE MORNING 90 tablet 1 09/20/2024 ActiveStart: 71-51-7754xfwa 1 tablet by mouth once daily in the morningglimepiride (AMARYL) 4 MG tablet Take 1 tablet by mouth every morning 90 tablet 1 01/10/2024 ActiveStart: 61-46-6919qbst 1 tablet by mouth in the morningglimepiride (Amaryl) 2 MG tablet Take 1 tablet by mouth in the morning. 03/15/2023 ActiveStart: 51-96-8734paaj 1 tablet by mouth once daily in the morningglimepiride (AMARYL) 2 MG tablet TAKE 1 TABLET BY MOUTH EVERY DAY IN THE MORNING 90 tablet 1 07/01/2022 ActiveStart: 59-36-4461ycoq 1 tablet by mouth once daily in the morningglimepiride (AMARYL) 2 MG tablet TAKE 1 TABLET BY MOUTH EVERY DAY IN THE MORNING 90 tablet 1 02/05/2022 Active Glimepiride ActivehydroCHLOROthiazide 25 mg oral tablet (20 sources)Thiazide DiureticStart: 16-03-4477uobw 1 tablet by mouth once daily hydroCHLOROthiazide (HYDRODiuril) 25 MG tablet Take 1 tablet by mouth Daily 06/04/2023 Activeipratropium bromide 0.042 mg/actuat metered dose nasal spray (15 sources)AnticholinergicStart: 65-29-0741uffx 2 spray(s) nasal route once dailyipratropium (ATROVENT) 0.06 % nasal spray SPRAY 2 SPRAYS INTO EACH NOSTRIL EVERY DAY 1 Bottle 1 10/30/2019 ActiveStart: 19-91-3398Maistpidpzp [place] 42 mcg (0.06 %) [place],Non-Aerosol Active 2 PERCENT INTRANASAL Every morning Dece 2017 12:00amtake 2 drop(s) nasal route three times daily as needed Ipratropium [place] 0.06 % 2 drops in each nostril as needed Nasally Three times a day for 90 days Activelisinopril 10 mg oral tablet (20 sources)Angiotensin Converting Enzyme InhibitorStart: 23-37-6435owyv 1 tablet by mouth once dailylisinopril 10 MG tablet Take 1 tablet by mouth Daily 06/04/2023 ActiveStart: 94-58-4698dunx 2 tablets by mouth once dailylisinopril 5 mg Tab 10 mg = 2 tab(s), Oral, Daily Start Date: 01/03/19 Status: OrderedStart: 19-35-8735ssgr 1 tablet by mouth once dailylisinopril (PRINIVIL;ZESTRIL) 5 MG tablet TAKE 1 TABLET BY MOUTH EVERY DAY 90 tablet 1 08/14/2024 Activeloratadine 10 mg oral tablet (13 sources)Start: 75-43-3519ssnw 1 tablet by mouth once dailyloratadine 10 mg Tab 10 mg = 1 tab(s), Oral, Daily Start Date: 01/03/19 Status: Orderedlovastatin 40 mg oral tablet (20 sources)HMG-CoA Reductase InhibitorStart: 31-06-3672acrl 1 tablet by mouth at bedtimelovastatin (Mevacor) 40 MG tablet Take 40 mg by mouth at bedtime 06/04/2023 Activemagnesium sulfate 0.0277 meq/ml / potassium sulfate 0.0374 meq/ml / sodium sulfate 0.257 meq/ml oral solution (3 sources)Start: 05-11-2024 End: 24-78-9121xfzpdm-potassium-mag sulfate (SUPREP BOWEL PREP KIT) 17.5-3.13-1.6 GM/177ML SOLN solution Indications: Colon cancer screening Use as directed. 1 each 05/11/2024 06/02/2024 Discontinued (LIST CLEANUP)meloxicam 15 mg oral tablet (20 sources)Nonsteroidal Anti-inflammatory DrugStart: 03-62-5550dhmj 1 capsule by mouth once dailymeloxicam 10 mg oral capsule 10 mg = 1 cap(s), Oral, Daily, Refills(s) 0 Start Date: 08/11/24 Status: OrderedStart: 93-34-4067dtwx 1 tablet by mouth once dailymeloxicam (Mobic) 15 MG tablet Take 1 tablet by mouth Daily 06/30/2023 Khizyn32 hr metFORMIN hydrochloride 500 mg extended release oral tablet (20 sources)BiguanideStart: 08-35-8671polIUSXMR XR (Glucophage-XR) 500 MG 24 hr tablet 06/03/2023 ActiveStart: 44-18-4546juns 2 tablets by mouth once daily at breakfastmetFORMIN (GLUCOPHAGE-XR) 500 MG extended release tablet TAKE 2 TABLETS BY MOUTH EVERY DAY WITH BREAKFAST 180 tablet 1 08/14/2024 ActiveStart: 74-31-3440ttyv 2 tablets by mouth once daily at breakfastmetFORMIN (GLUCOPHAGE- XR) 500 MG extended release tablet TAKE 2 TABLETS BY MOUTH EVERY DAY WITH SHIVA KFAST 180 tablet 1 07/01/2022 ActiveStart: 70-59-1466Kszgouppk 500 mg tablet extended release 24 hr Active 1000 MG PO Every morning January 03, 2019 11:00pm Start: 51-73-0767ebhu 1000 mg by mouth once daily in the morningMetformin Active 1000 MG PO Every morning January 04, 2019 12:00amStart: 84-73-0613vbyu 1 tablet by mouth twice dailymetformin 500 mg ER Tab 500 mg = 1 tab(s), Oral, BID Start Date: 01/03/19 Status: OrderedStart: 05-12-2018 End: 15-41-6325Isimmfykw 750 mg tablet extended release 24 hr Discontinued May 12, 2018 12:00am December 6:48amStart: 05-12-2018 End: 39-62-9021Btfdqzinb Discontinued May 12, 2018 1:00am January 04, 2019 7:48am24 hr metoprolol succinate 25 mg extended release oral tablet (20 sources)beta-Adrenergic BlockerStart: 88-96-2535ozmd 1 tablet by mouth every twenty-four hours in the morningmetoprolol succinate XL (Toprol-XL) 25 MG 24 hr tablet Take 1 tablet by mouth in the morning. 06/04/2023 ActiveStart: 26-63-1203mrkf 1 tablet by mouth once dailymetoprolol succinate XL (Toprol-XL) 25 MG 24 hr tablet Take 1 tablet by mouth Daily 06/04/2023 ActiveMultiple Vitamins-Minerals (THERAPEUTIC MULTIVITAMIN-MINERALS) tablet (5 sources)take 1 tablet by mouth once dailyMultiple Vitamins-Minerals (THERAPEUTIC MULTIVITAMIN-MINERALS) tablet Take 1 tablet by mouth daily.0 Active Multiple Vitamins-Minerals (ZINC PO) (14 sources)Multiple Vitamins-Minerals (ZINC PO) Take by mouth ActiveMultiple Vitamins-Minerals (ZINC PO) Take by mouth 0 NpufvkGhxolchq-Oyx-Lazr-Fa-Vit K-Lut (Multivitamin Women 50 Plus) 8 mg iron-400 mcg-300 mcg Tablet (3 sources)Start: 36-82-5728akei 1 tablet by mouth once daily Kkvcpfjb-Esc-Dzvy-Fa-Vit K-Lut (Multivitamin Women 50 Plus) 8 mg iron-400 mcg- 300 mcg Tablet Active1 TAB PO Daily March 08, 2019 11:00pmStart: 03-09-2019 take 1 tablet by mouth once rtqfgIvkawqou-Pdp-Bgfn-Fa-Vit K-Lut (Multivitamin Women 50 Plus) 8 mg iron-400 mcg-300 mcg Tablet Active1 TAB PO Daily March 09, 2019 12:00amMultivitamins (7 sources)take 1 tablet by mouth once dailyMultivitamins 1 tab(s) Orally Daily ActiveMultivitamins and Minerals (3 sources)Start: 41-10-0912Ctfkamqkyozsl and Minerals Refill(s) 0 Start Date: 04/15/11 Status: OrderedOmega 2-Qnm-Pac-Fish Oil (Fish Oil) 300-1,000 mg Capsule,Delayed Release(Dr/Ec) (3 sources)Start: 86-21-9000ubyq 300-1000 mg by mouth once dailyOmega 0-Rlg-Fjh-Fish Oil (Fish Oil) 300-1,000 mg Capsule,Delayed Release(Dr/Ec) Active 1 CAP PO Daily May 12, 2018 12:00amStart: 88-43-9759kook 300-1000 mg by mouth once dailyOmega 5-Hsp-Pov-Fish Oil (Fish Oil) 300-1,000 mg Capsule,Delayed Release(Dr/Ec) Active 1 CAP PO Daily May 12, 2018 1:00ampolyethylene glycol 400 4 mg/ml / propylene glycol 3 mg/ml ophthalmic solution (2 sources)polyethyl glycol-propyl glycol 0.4-0.3 % (SYSTANE) 0.4-0.3 % ophthalmic solution 1 drop daily as needed for Dry Eyes 0 ActiveProAir HFA 108 (90 Base) MCG/ACT (2 sources)Start: 51-41-4917owxb 1-2 puff(s) by inhalation every four hours as neededProAir HFA 108 (90 Base) MCG/ACT 1-2 puff as needed Inhalation every 4 hrs Dec, Activetriamcinolone acetonide 0.001 mg/mg oral paste (2 sources)CorticosteroidStart: 84-18-9879ilhhjhmwdjoye acetonide (KENALOG) 0.1 % paste APPLY A FILM AFTER MEALS AND BEFORE BED 3 08/30/2018 ActiveVITAMIN D PO (20 sources)VITAMIN D PO Take by mouth daily ActiveVITAMIN D PO Take by mouth ActiveVITAMIN D PO Take by mouth 0 ActiveVITAMIN D PO Take by mouth daily 0 Activevitamin e 180 mg oral capsule (20 sources)Start: 55-67-6511bzja 1 capsule by mouth once dailyVitamin E 400 unit Capsule Active 1 CAP PO Daily May 12, 2018 12:00amtake 1 capsule by mouth once dailyalpha tocopherol (Vitamin E) 400 units capsule Take 1 capsule by mouth Daily Activetake 1 capsule by mouth in the morningalpha tocopherol (Vitamin E) 400 units capsule Take 1 capsule by mouth in the morning. Active Vitamin E 400 UNIT (7 sources)take 1 tablet by mouth once dailyVitamin E 400 UNIT 1 tablet Orally Once a day ActiveZinc (10 sources)ZINC PO Take by mouth Activezinc gluconate 50 mg oral tablet (13 sources)take 1 tablet by mouth once dailyzinc gluconate 50 MG tablet Take 50 mg by mouth Daily Active Completed/Discontinued Medications MedicationDrug Class(es)DatesSig (Normalized)Sig (Original)amitriptyline hydrochloride 10 mg oral tablet (3 sources)Tricyclic AntidepressantStart: 01-04-2019 End: 89-73-0738vmik 1 tablet by mouth once daily at bedtimeAmitriptyline 10 mg tablet Discontinued 10 MG PO Daily at bedtime January 03, 2019 11:00pm August 10:14amamoxicillin 875 mg / clavulanate 125 mg oral tablet (2 sources)Penicillin-class AntibacterialStart: 03-09-2024 End: 48-61-1456csvb 1 tablet by mouth every twelve hoursAmoxicillin-Pot Clavulanate 875-125 mg tablet Discontinued 1 TAB PO Every 12 hours 19 03March 08, 2024 11:00pm June 08, 2024 10:94lm345 actuat budesonide 0.08 mg/actuat / formoterol fumarate 0.0045 mg/actuat metered dose inhaler (3 sources)Corticosteroid, beta2-Adrenergic AgonistStart: 09-30-2023 End: 69-58-7967fzlz 1 puff(s) by inhalation twice dailyBudesonide-Formoterol (Symbicort) 80-4.5 mcg/actuation HFA aerosol inhaler Discontinued 2 PUFF INHAL ATION Twice daily 10.2 30 September 29, 2023 11:00pm December 09, 2023 9:59am Rinse after use. May substitute with generic budesonide/formoterol or Breyna, whichever is covered by insurance or cheaper for the patient. Dispense #1 inhalerDexamethasone (6 sources)CorticosteroidStart: 39-21-3887OFTKNCNQHASXZ Aug, 40 mgStart: 37-16-7296DLOWNERBGLKIA Aug, 1 mLdocusate sodium 50 mg oral capsule (13 sources)Start: 01-04-2019 End: 01-98-3711ajkv 1 capsule by mouth once dailyDocusate Sodium (Stool Softener) 50 mg Capsule Discontinued 50 MG PO Daily January 03, 2019 11:00pm September 23, 2023 10:14amStart: 77-48-5075Wwfrmwfq Stool Softener See Instructions, 100 mg Oral as needed, Refills(s) 0 Start Date: 01/03/19 Status: Orderedhomatropine methylbromide 0.3 mg/ml / HYDROcodone bitartrate 1 mg/ml oral solution (3 sources)Opioid Agonist, Cholinergic Muscarinic AgonistStart: 05-12-2018 End: 76-30-1678Nezvfhqzofe-Homatropine 5-1.5 mg/5 mL Syrup Discontinued 1 TSP PO Q6H as needed for Cough May 12, 2018 12:00am September 23, 2023 10:14am methylPREDNISolone 4 mg oral tablet (6 sources)CorticosteroidStart: 03-09-2024 End: 26-50-5949aqlc 1 tablet by mouth onceMethylprednisolone (Medrol (Ronni)) 4 mg tablets,dose pack Discontinued 0 PO per package directions March 08, 2024 11:00pm June 08, 2024 10:28am PO PER PKG DIR for 6 daysStart: 05-05-2022 methylPREDNISolone 4 MG as directed Orally Once a day for 6 days Apr, ActiveStart: 94-40-6241wavwsbOJOOUVImeusj 4 MG as directed Orally Once a day for 6 days Aug, ActiveMometasone-Formoterol (Dulera) 100-5 mcg/actuation HFA aerosol inhaler (6 sources)Start: 12-09-2023 End: 63-86-8055brzs 1 puff(s) by inhalation twice daily as neededMometasone- Formoterol (Dulera) 100-5 mcg/actuation HFA aerosol inhaler Discontinued 2 PUFF INHALATION Twice daily as needed December 09, 2023 9:59am June 08, 2024 10:29amStart: 59-65-5500ckwv 1 puff(s) by inhalation twice dailyMometasone- Formoterol (Dulera) 100-5 mcg/actuation HFA aerosol inhaler Active 2 PUFF INHALATION Twice daily December 09, 2023 10:59amStart: 09-30-2023 End: 59-96-0225jihi 1 puff(s) by inhalation twice dailyMometasone-Formoterol (Dulera) 100-5 mcg/actuation HFA aerosol inhaler Discontinued 2 PUFF INHALATION Twice daily 3 September 29, 2023 11:00pm December 09, 2023 10:00amStart: 09-30-2023 End: 41-33-8636nkgy 1 puff(s) by inhalation twice dailyMometasone-Formoterol (Dulera) 100-5 mcg/actuation HFA aerosol inhaler Discontinued 2 PUFF INHALATION Twice daily 3 September 30, 2023 12:00am December 09, 2023 11:00am Zyakdpvb-Psc-Wqevywq Fumarate (Multi Vitamin) 9 mg iron/15 mL Liquid (3 sources)Start: 05-12-2018 End: 74-46-3846imtu 1 tablet by mouth once sashjHyocpbrq-Urf-Zgohote Fumarate (Multi Vitamin) 9 mg iron/15 mL Liquid Discontinued 1 TAB PO Daily May 12, 2018 12:00am March 09, 2019 7:36amStart: 05-12-2018 End: 76-04-6514ntjc 1 tablet by mouth once ahlmaLgxewkrf-Zle-Atrjdtl Fumarate (Multi Vitamin) 9 mg iron/15 mL Liquid Discontinued 1 TAB PO Daily May 12, 2018 1:00am March 09, 2019 8:36amolopatadine 1 mg/ml ophthalmic solution (20 sources)Histamine-1 Receptor InhibitorStart: 05-12-2018 End: 55-06-6441amse 1 drop(s) into the eye(s) once daily in the morning Olopatadine (Patanol) 0.1 % Drops Discontinued 1 - 2 DROPS EYE-BOTH Every morning May 12, 2018 12:00am December 09, 2023 9:58amStart: 27-48-9792znhx 1 drop(s) into the eye(s) once dailyolopatadine (PATANOL) 0.1 % ophthalmic solution Place 1 drop into both eyes daily. 15 mL 1 10/28/2012 ActiveStart: 86-12-2257kijw 1 drop(s) into the eye(s) once dailyPatanol 0.1% ophthalmic solution 1 drop(s), Eye-Both, Daily, mL, Refill(s) 0 Start Date: 04/15/11 St atus: OrderedStart: 71-97-2661yhbr 1 drop(s) into the eye(s) once dailyPatanol 0.1% ophthalmic solution 1 drop(s), Eye-Both, Daily, mL, Refill(s) 0 Start Date: 04/15/11 Status: Orderedtake 1 drop(s) into the eye(s) twice dailyPatanol 0.1 % 1 drop into affected eye Ophthalmic Twice a day ON HOLD Activetake 1 drop(s) into the eye(s) twice dailyPatanol 0.1 % 1 drop into affected eye Ophthalmic Twice a day ON HOLD Activeperflutren lipid microspheres (DEFINITY) injection 1.5 mL (1 source)Start: 06-22-2024 End: 50-01-5275caau 1.1 mg intravenously once as needed1.5 mL, IntraVENous, IMG ONCE PRN, 1 dose, Starting on [facility] 06/22/24 at 1238, Until [facility] 06/22/24 at 1239, Other, Once activated, final concentration equals 1.1 mg/mLpredniSONE 20 mg oral tablet (7 sources)Start: 09-30-2023 End: 74-27-6274Ermdobrntl 20 mg tablet Discontinued 20 MG PO As Directed September 29, 2023 11:00pm December 09, 2023 9:58am 3 tabs x 3 days, then 2 tabs x 3 days, then 1 tab x 3 daysStart: 01-84-5314exxaohFNDJ 10 MG 4 tablets daily for 3 days, 2 tablets daily for 3 days, 1 tablet daily for 7 days Orally Once a day for 13 days Aug, Active End: 28-92-9415yqzv 1 tablet by mouth once dailypredniSONE (Deltasone) 10 MG tablet Take 10 mg by mouth Daily 04/06/2025 Activeregadenoson (LEXISCAN) injection 0.4 mg (1 source)Start: 06-22-2024 End: 76-59-2730jndr 0.4 mg intravenously once as needed0.4 mg, IntraVENous, IMG ONCE PRN, 1 dose, Starting on Wed06/22/24 at 0837, Until [facility] 06/22/24 at 1016, Other, Only to be given in Nuclear Med during CARDIAC STRESS TEST ONLY.5 ml sodium chloride 9 mg/ml injection (4 sources)Start: 06-22-2024 End: 76-76-146079 mL, IntraVENous, PRN, Starting on Wed06/22/24 at 0837, Until [facility] 06/22/24 at 1436, Line Care, FORUSE IN CARDIAC STRESS LAB ONLY., Pre-procedure(Stress)Start: -40 mL, IntraVENous, EVERY 12 HOURS SCHEDULED (2 times per day), First dose on Wed06/02/24 at 0900,Until Discontinued, For Line Patency: Peripheral IV = [...] Midline or Central Line = 20 mL/lumen, Pre-procedure(GI)Start: 75-44-2422crps 25 mL intravenously every hour as wtedbg69 mL, IntraVENous, at 100 mL/hr, PRN, If patient receiving piggyback infusions without ordered maintenance IV fluids or with frequent/long duration piggyback infusions, Starting on Wed06/02/24 at 0640, Administer at the same rate as the piggyback being infused., Pre-procedure(GI) Start: -40 mL, IntraVENous, PRN, Starting on Wed06/02/24 at 0640, Until Discontinued, Line Care, After every IV line use, For Line Patency: Peripheral IV = 5 mL; Midline or Central Line = 10 mL/lumen. If following IV push medication, administer flush at same rate as the IV push. Flush volume is determinedby type of infusion therapy being given. For non-viscous solutions use: Peripheral IV = 5 mL Midline or Central Line = 10 mL/lumen For viscous solutions (i.e. blood components, parenteral nutrition, contrast media, or after obtaining blood sample) use: Peripheral IV = 10 mL Midline or Central Line = 20 mL/lumen, Pre-procedure(GI)technetium sestamibi (CARDIOLITE) injection 10 millicurie (1 source)Start: 06-22-2024 End: 62-70-5397udmp 1 dose intravenously once10 millicurie, IntraVENous, IMG ONCE PRN, 1 dose, Starting on [facility] 06/22/24 at 0956, Until [facility] 06/22/24 at 0957, Othertechnetium sestamibi (CARDIOLITE) injection 30 millicurie (1 source)Start: 06-22-2024 End: 14-70-0699faba 1 dose intravenously once30 millicurie, IntraVENous, IMG ONCE PRN, 1 dose, Starting on [facility] 06/22/24 at 0956, Until [facility] 06/22/24 at 0957, OtherVitamin E 400 unit(s) Cap (3 sources)Start: 66-41-4566edej 1 capsule by mouth once dailyVitamin E 400 unit(s) Cap 400 International_Unit = 1 cap(s), Oral, Daily, cap(s), Refills(s) 0 Start Date: 04/15/11 Status: Ordered Problems Active Problems Problem ClassificationProblemDateDocumented DateEpisodic/ChronicAcquired foot deformities (2 sources)Hammer toe; Translations: [Other hammer toe(s) (acquired), right foot]87-26-2036BvrfzjoVfcuvj (20 sources)Asthma; Translations: [Cough variant asthma]Onset: 03-14-2011 Resolved: 189491-33-7742UgrmxurRzpxtvh tract disease (3 sources)Calculus of gallbladder with aaqtixfuztqst42-38-3793AjngukmaJnkwtb; other and unspecified primary (3 sources)History of bladder hbobjaak13-04-9750WewdxfswSnkgibr dysrhythmias (2 sources)Cardiac arrhythmia; Translations: [Cardiac arrhythmia, unspecified] 38-21-8244GipyauhNmbpvykfgz disorders (3 sources)Sinus node dysfunction; Translations: [Other specified heart block] Onset: 604341-93-9036MrtuqxvFuiwhgxl mellitus with complications (20 sources)Polyneuropathy due to type 2 diabetes mellitus; Translations: [Type 2 diabetes mellitus with diabetic polyneuropathy]Onset: ChronicDiabetes mellitus without complication (20 sources)Type 2 diabetes mellitus without complication; Translations: [Type 2 diabetes mellitus without complications]Onset: 96-43-9207RvkpdbdFgpsrdrhk of lipid metabolism (20 sources)Pure hypercholesterolemia; Translations: [Hypercholesterolemia] Onset: 888813-25-2880YwiuedcEcqrnysiap disorders (20 sources)Gastroesophageal reflux disease; Translations: [Gastroesophageal reflux disease without esophagitis]Onset: 566240-09-1244UjjxuwvYmpwaffaj hypertension (20 sources)Benign essential hypertension; Translations: [Hypertensive disorder] Onset: 582609-46-2988WkszlgeKzqmceyavk disorders (19 sources)Postmenopausal bleeding; Translations: [Postmenopausal bleeding] Onset: 599655-78-3497KybfrqiPqvcudg (3 sources)Onychomycosis; Translations: [Tinea unguium]48-14-7754SeisguxtTddsx connective tissue disease (2 sources)Pain in both feet; Translations: [Pain in right foot]04-06-2025 EpisodicOther lower respiratory disease (6 sources)Chronic cough; Translations: [Cough]EpisodicOther lower respiratory disease (1 source)Respiratory tract infection; Translations: [Other specified respiratory disorders]38-75-4623CdispkaoFobqu lower respiratory disease (1 source)Other specified respiratory disorders; Translations: [Other diseases of respiratory system, not elsewhere classified]35-50-8568WyroiotmNkils lower respiratory disease (2 sources)Dyspnea; Translations: [Shortness of breath]14-18-8884CcreqgwfSctoz nervous system disorders (1 source)Metallic taste; Translations: [Metallic taste]EpisodicOther nervous system disorders (1 source)Sensory disorder of smell and/or taste; Translations: [Disturbance of smell and taste]EpisodicOther nutritional; endocrine; and metabolic disorders (1 source)Hypercalcemia; Translations: [Hypercalcemia]ChronicOther nutritional; endocrine; and metabolic disorders (3 sources)Obesity, unspecified; Translations: [Obesity, unspecified]09-30-2023 ChronicOther nutritional; endocrine; and metabolic disorders (1 source)Body mass index (BMI) 39.0-39.9, adult; Translations: [Body Mass Index 39.0-39.9, adult]51-16-0244ByqgaaoCbvhb nutritional; endocrine; and metabolic disorders (10 sources)Severe obesity; Translations: [Morbid (severe) obesity due to excess calories]Onset: 623192-33-8171HthtfvxUfrax upper respiratory disease (20 sources)Allergic rhinitis; Translations: [Allergic rhinitis, unspecified] Onset: 611521-35-7532WsjbpjaUjqbn upper respiratory disease (7 sources)Chronic rhinitis; Translations: [Chronic rhinitis]ChronicOther upper respiratory disease (7 sources)Allergic rhinitis due to pollen; Translations: [Allergic rhinitis due to pollen]ChronicOther upper respiratory disease (1 source)Allergic rhinitis due to pollenChronicOther upper respiratory disease (3 sources)Allergic rhinitis, unspecified; Translations: [Allergic rhinitis, cause unspecified]80-96-8566YiezzhkVzpic upper respiratory disease (6 sources)Hoarse; Translations: [Dysphonia]EpisodicOther upper respiratory disease (6 sources)Singers' nodes; Translations: [Nodules of vocal cords]EpisodicOther upper respiratory disease (6 sources)Vocal cord cyst; 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] EpisodicResidual codes; unclassified (2 sources)Obstructive sleep apnea syndrome; Translations: [Obstructive sleep apnea (adult) (pediatric)]83-75-5557ZkmqvmtMisrxvtd codes; unclassified (2 sources)Obstructive sleep apnea (adult) (pediatric); Translations: [Obstructive sleep apnea (adult)(pediatric)]ChronicResidual codes; unclassified (1 source)Hypersomnia; Translations: [Hypersomnia, unspecified]12-12-6178Rkzeebs Residual codes; unclassified (1 source)Hypersomnia, unspecified; Translations: [Hypersomnia, unspecified] 28-25-8953NryomhjRcgdbzzl codes; unclassified (1 source)Primary central sleep apnea; Translations: [Primary central sleep apnea]Onset: 919501-73-1264NiumsftHonfbzakqis; intervertebral disc disorders; other back problems (14 sources)Degeneration of lumbar intervertebral disc; Translations: [Other intervertebral disc degeneration, lumbar region]Onset: ChronicSuperficial injury; contusion (2 sources)Contusion of toe(s) with damage to nail; Translations: [Contusion of left great toe with damage to nail, initial encounter]09-75-4396Nbszwers Unclassified (2 sources)Patient encounter status; Translations: [Visit for screening mammogram] Past or Other Problems Problem ClassificationProblemDateDocumented DateEpisodic/ChronicCancer of bladder (20 sources)Malignant tumor of vault of bladder; Translations: [Malignant tumor of urinary bladder]Onset: 03-14-2011 Resolved: 477239-04-8287RrmpcdhAkxton of bladder (13 sources)H/O: malignant neoplasm; Translations: [Personal history of malignant neoplasm of bladder]Onset: 246002-48-2562YxqaurahXudtlzt dysrhythmias (3 sources)Sinus bradycardia; Translations: [Bradycardia, unspecified]Onset: 273670-52-1165StoacdcdSugxnxro mellitus without complication (19 sources)Impaired fasting glycaemia; Translations: [Impaired fasting glucose] Onset: 03-14-2011 Resolved: 111107-02-6973CjlsluzcZvlatqip of white blood cells (17 sources)Familial eosinophilia; 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]Onset: 03-17-2024 Resolved: 156480-81-5318ZafuzdzZcsfeswoickdf and screening for infectious disease (1 source)Contact with and (suspected) exposure to other viral communicable diseasesOnset: 09-28-2021 Resolved: 24-60-3061XhoupwvcEnuzecnheeun breast conditions (19 sources)Red breast; Translations: [Erythematous condition, unspecified] Onset: 08-14-2014 Resolved: 401851-35-9811LkpaiwamKwzrswpgicx chest pain (3 sources)Chest pain; Translations: [Chest pain, unspecified]Onset: 06-22-2024 89-93-3238BsumwtbsZxqcp and unspecified benign neoplasm (19 sources)History of polyp of colon; Translations: [Personal history of colonic polyps]Onset: 962524-60-6626NpaqiufdQnvep lower respiratory disease (1 source)Shortness of breath; Translations: [Shortness of breath]Onset: 59-98-0731CvmkxnkvWlzfl nervous system disorders (19 sources)Burning sensation; Translations: [Other disturbances of skin sensation]Onset: 08-14-2014 Resolved: 691929-59-3919TglizdmpMmiyg nutritional; endocrine; and metabolic disorders (14 sources)Body mass index 30+ - obesity; Translations: [Body mass index (BMI) 39.0-39.9, adult]Onset: 03-17-2024 Resolved: 632026-81-2937XifxtngMxmie nutritional; endocrine; and metabolic disorders (14 sources)Obesity; Translations: [Obesity, unspecified]Onset: 03-17-2024 Resolved: 070128-56-1554FknojbaTgkwr screening for suspected conditions (not mental disorders or infectious disease) (3 sources)Patient encounter status; Translations: [Encounter for screening mammogram for malignant neoplasm of breast]Onset: 26-58-3397IwjbdnhcXsdml upper respiratory disease (14 sources)Deviated nasal septum; Translations: [Deviated nasal septum]Onset: 457897-24-9992TidfkdlpIvhbk upper respiratory infections (20 sources)Acute sinusitis; Translations: [Acute laryngitis]Onset: 07-04-2012 60-50-4401XzoikfvxMxnzgoeeppzw (3 sources)Cough R05.9Onset: 09-06-2021 Resolved: 74-35-9195Ihnzgcedsuot (1 source)Persistent cough for 3 weeks or longer R05.3Onset: 09-28-2021 Resolved: 63-00-6192Magrfsdorumi (10 sources)Onset: Viral infection (1 source)COVID-19 Results Test NameValueInterpretationReference RangeFacilityAlbumin/Creat Ratio, Urineon 01-10-0926Zdtkbin,conc.[place] U<52Evxaqk5-29CgmunSelect Medical Specialty [facility] on above:Performed By: #### URNMAB #### [id number] [place] [address] Manager Bridge: Nelson Mckenzie, MDAlbumin/Creat RatioCan not be calculatedNormal 0.0-25.0[facility] on above:Performed By: #### URNMAB #### [address] [address] Manager Bridge: Nelson Mckenzie, MDCreatinine Conc.99.7 mg/vHCpqfjd52.0-217.0[facility] on above:Result Comment: Reference range defined for 1st morning urinePerformed By: #### URNMAB #### [address] [address] Manager Bridge: Nelson Mckenzie, MDAlbumin/Creatinine Ratio, Urineon 10-17-2024 Albumin DL <= 20 mg/L (U) [Mass/Vol]mg/L0 - 20 mg/LBon [facility] Albumin/Creatinine DL <= 20 mg/L (U) [Ratio]Can not be calculatedBon Barnesville HospitalCreatinine (U) [Mass/Vol]99.7 mg/dL28.0 - 217.0 mg/dLBon [facility] on above:Reference range defined for 1st morning urineBon [facility] Metabolic Profon 93-11-3346Fdxbtfh [Mass/Vol]3.9 g/dL Normal3.5-5.2MercKaiser South San Francisco Medical CenterComveterans affairs medical center on above:Performed By: #### CP #### [facility] [address] [place] [address] Manager Bridge: Naldo Tinsley MD #### LIPR, GLYHGB #### [address] [phone] Manager Bridge: Nelson Madoff, MDAlbumin/Glob Ratio1.7Lvnouk2.0-2.5[facility] on above:Performed By: #### CP #### [facility] [address] [place], [place] [id number] Manager Bridge: Naldo Tinsley MD #### LIPR, GLYHGB #### [address] [phone] Manager Bridge: Tc Manningline Phos55 U/BDcdlhk07-983LlxiuSelect Medical Specialty Hospital [facility] on above:Performed By: #### CP #### [facility] [address] [place], [place] [id number] Manager Bridge: Naldo Tinsley MD #### MIKE, GLYHGB #### [address] [phone] Manager Bridge: Nelson Mckenzie MDALT [Catalytic activity/Vol]18 U/LNormal5-33 [facility] on above:Performed By: #### CP #### [facility] [address] [place], [place] [phone] Manager Bridge: Naldo Tinsley MD #### LIPR, GLYHGB #### [address] [address] Manager Bridge: Nelson Mckenzie MDAnikayden gap [Moles/Vol]11 mmol/LNormal9-17[facility] on above:Performed By: #### CP #### [facility] [address] [place], [place] [id number] Manager Bridge: Naldo Tinsley MD #### LIPR, GLYHGB #### [address] [address] Manager Bridge: Nelson Mckenzie MDAST [Catalytic activity/Vol]22 U/LNormal<32[facility] on above:Performed By: #### CP #### [facility] [address] [place], [place] [phone] Manager Bridge: Naldo Tinsley MD #### MIKE GLYHGB #### [address] [phone] Manager Bridge: Nelson Mckenzie MDBilirubin [Mass/Vol]0.5 mg/dLNormal0.3-1.2MCincinnati VA Medical CenterComveterans affairs medical center on above:Performed By: #### CP #### [facility] [address] [place], [place] [phone] Manager Bridge: Naldo Tinsley MD #### MIKE GLYHGB #### [address] [phone] Manager Bridge: VIRGINIA Manningalcium [Mass/Vol]9.8 mg/dLNormal8.6-10.4Community Memorial HospitalComveterans affairs medical center on above:Performed By: #### CP #### [facility] [address] [place], [place] [phone] Manager Bridge: Naldo Tinsley MD #### MIKE GLYHGB #### [address] [place], [place] [phone] Manager Bridge: V[place] Manninghloride [Moles/Vol]101 mmol/DBicdco05-065VidmhSelect Medical Specialty Hospital [facility] on above:Performed By: #### CP #### [facility] [address] [place], [place] [phone] Manager Bridge: Naldo Tinsley MD #### LIPMatt, GLYHGB #### [address] [phone] Manager Bridge: Nelson Mckenzie MDCO2 [Moles/Vol]25 mmol/QCkkgsb27-65AufnlSelect Medical Specialty Hospital [facility] on above:Performed By: #### CP #### [facility] [address] [place], [place] [id number] Manager Bridge: Naldo Tinsley MD #### MIKE GLYHGB #### [facility] [address] [place], [place] [phone] Manager Bridge: VIRGINIA Manningreatinine [Mass/Vol]0.8 mg/dLNormal0.5-0.9Community Memorial HospitalComment on above:Performed By: #### CP #### [facility] [address] [place], [place] [id number] Manager Bridge: Naldo Tinsley MD #### MIKE GLYHGB #### [address] [place], [place] [phone] Manager Bridge: Nelson Mckenzie MDGFR/1.73 sq M.predicted among non-blacks MDRD (S/P/Bld) [Vol rate/Area]80 mL/min/{1.73_m2}Normal>60[facility] Comment on above:Result Comment: These results are not intended for [...] or following therapy that affects renal tubular secretion.Performed By: #### CP #### [facility] [address] [place], [place] [phone] Manager Bridge: Naldo Tinsley MD #### MIKE GLYHGB #### [facility] [address] [place], [place] [phone] Manager Bridge: Nelson Mckenzie MDGlucose [Mass/Vol]150 mg/sYFgen97-92IyfgkCincinnati VA Medical CenterComment on above:Performed By: #### CP #### [facility] [address] [place], [place] [id number] Manager Bridge: Naldo Tinsley MD #### LIPR, GLYHGB #### [address] [place], [place] [phone] Manager Bridge: POLO Manningotassium [Moles/Vol]4.4 mmol/LNormal3.7-5.3 Community Memorial HospitalComment on above:Performed By: #### CP #### [facility] [address] [place] [address] Manager Bridge: Naldo Tinsley MD #### LIPR, GLYHGB #### [address] [place] [phone] Manager Bridge: Nelson Mckenzie MDProtein [Mass/Vol]7.0 g/dLNormal6.4-8.3Mer[facility] St[facility] Memorial HospitalComment on above:Performed By: #### CP #### [facility] [address] [place] [address] Manager Bridge: Naldo Tinsley MD #### LIPMatt, GLYHGB #### [phone] Manager Bridge: DANYELLE Manningodium [Moles/Vol]137 mmol/ELduhax935-232OdpkyCommunity Memorial HospitalComment on above:Performed By: #### CP #### [facility] [address] [place] [address] Manager Bridge: Naldo Tinsley MD #### LIPR, GLYHGB #### [phone] Manager Bridge: Nelson Mckenzie MDUrea nitrogen [Mass/Vol]21 mg/dLNormal8-23Community Memorial HospitalComment on above:Performed By: #### CP #### [facility] [address] [place] [address] Manager Bridge: Naldo Tinsley MD #### LIPR, GLYHGB #### [facility] [address] [place] [address] Manager Bridge: Nelson Mckenzie [facility] TULSAompcleveland clinic euclid hospitalensive Metabolic Panelon 10-17-2024 Albumin [Mass/Vol]3.9 g/dL3.5 - 5.2 g/dLBon Smart GardenerAlbumin/Globulin [Mass ratio]1.3 {ratio}1.0 - 2.5Bon SecPersonal Web Systems HealthALP [Catalytic activity/Vol]55 U/L35 - 104 U/LBon SecAirPOSALT [Catalytic activity/Vol]18 U/L5 - 33 U/LBon SecAirPOSAnion gap [Moles/Vol]11 mmol/L9 - 17 mmol/LBon SecPersonal Web Systems HealthAST [Catalytic activity/Vol]22 U/L NINF - 32 U/LBon Secchristiana hospital Molecular TemplatesBilirubin [Mass/Vol]0.5 mg/dL0.3 - 1.2 mg/dLBon [facility] Molecular TemplatesCalcium [Mass/Vol]9.8 mg/dL8.6 - 10.4 mg/dLBon [facility] Molecular TemplatesChloride [Moles/Vol]101 mmol/L98 - 107 mmol/LBon SecAirPOSCO2 [Moles/Vol]25 mmol/L20 - 31 mmol/LBon Ab[facility] Scott[facility] CampusAirPOS Creatinine [Mass/Vol]0.8 mg/dL0.5 - 0.9 mg/dLBon SecAirPOSEst, Glom Filt Rate80- PINFBon [facility] Molecular TemplatesComment on above: These results are not intended [...] therapy that affects renal tubular secretion. Glucose [Mass/Vol]150 mg/nHHjtc19 - 99 mg/dLBon [facility] Interpretation and review of laboratory resultsAbnormalBon [facility] Molecular Templates Potassium [Moles/Vol]4.4 mmol/L3.7 - 5.3 mmol/LBon [facility]ville HospitalProtein [Mass/Vol]7 g/dL6.4 - 8.3 g/dLBon [facility]ville HospitalSodium [Moles/Vol]137 mmol/L135 - 144 mmol/LBon [facility] HospitalUrea nitrogen [Mass/Vol]21 mg/dL8 - 23 mg/dLBon [facility] Healthcare CenterHemoglobin A1Con 04-07-5665Unbqwbm glucose Estimated from glycated hemoglobin (Bld) [Mass/Vol]197 mg/dLBon Barnesville HospitalComment on above:The ADA and AACC recommend providing the estimated average glucose result to permit better patient understanding of their HBA1c result. HbA1c (Bld) [Mass fraction]8.5 %High4.0 - 6.0 %[facility] Interpretation and review of laboratory resultsAbnoAvera Weskota Memorial Medical CenterGlucose [Mass/Vol]197 mg/dLNoRegency Hospital [facility] West Comment on above:Result Comment: The ADA and AACC recommend providing the estimated average glucose result to permit better patient understanding of their HBA1c result.Performed By: #### CP #### [facility] [address] [place] [address] Manager Bridge: Naldo Tinsley MD #### LIPMatt GLYHGB #### [facility] [address] [place] [address] [id number] Manager Bridge: Nelson Mckenzie MDHbA1c (Bld) [Mass fraction]8.5 %High4.0-6.0Community Memorial HospitalComment on above:Performed By: #### CP #### [facility] [address] [place] [address] Manager Bridge: Naldo Tinsley MD #### LIPMatt GLYHGB #### [facility] [address] [place] [address] [id number] Manager Bridge: Nelson Mckenzie MDLipid Panelon 05-28-4197Fkuwlkcxmoa [Mass/Vol] 159 mg/dL0 - 199 mg/dLBon [facility] HospitalComment on above: Cholesterol Guidelines: <200 Desirable 200-240 Borderline >240 Undesirable Cholesterol in HDL [Mass/Vol]55 mg/dL40 - PINF mg/dLBon [facility] Comment on above: HDL Guidelines: <40 Undesirable 40-59 Borderline >59 Desirable Cholesterol in LDL [Mass/Vol]80 mg/dL0 - 100 mg/dLBon [facility] Comment on above: LDL Guidelines: <100 Desirable 100-129 Near to/above Desirable 130-159 Borderline >159 Undesirable Direct (measured) LDL and calculated LDL are not interchangeable tests. Cholesterol in VLDL [Mass/Vol]24 mg/dL1 - 30 mg/dLBon [facility] Cholesterol.total/Cholesterol in HDL [Mass ratio]2.9 {ratio}NINF - 5.0Bon [facility] HospitalTriglyceride [Mass/Vol]118 mg/dLNINF - 150 mg/dLBon [facility] HospitalComment on above: Triglyceride Guidelines: <150 Desirable 150-199 Borderline 200-499 High >499 Very high Based on AHA Guidelines for fasting triglyceride, February 2012. Bon Barnesville HospitalLipid Profileon 38-64-5150Nflrhyrmiyk [Mass/Vol]159 mg/dLNormal0-199Community Memorial HospitalComment on above:Result Comment: Cholesterol Guidelines: <200 Desirable 200-240 Borderline >240 UndesirablePerformed By: #### CP #### [facility] [address] [place] [address] Manager Bridge: Naldo Tinsley MD #### LIPR, GLYHGB #### [address] [address] Manager Bridge: [place] Manningholesterol in HDL [Mass/Vol]55 mg/dLNormal>40 [facility] on above:Result Comment: HDL Guidelines: <40 Undesirable 40-59 Borderline >59 DesirablePerformed By: #### CP #### [facility] [address] [place] [address] Manager Bridge: Naldo Tinsley MD #### LIPR, GLYHGB #### [facility] [address] [place], [place] [phone] Manager Bridge: Nelson Mckenzie MDCholesterol in LDL [Mass/Vol]80 mg/dLNormal0-100 [facility] HospitalComveterans affairs medical center on above:Result Comment: LDL Guidelines: <100 Desirable 100-129 Near to/above Desirable 130-159 Borderline >159 Undesirable Direct (measured) LDL and calculated LDL are not interchangeable tests.Performed By: #### CP #### [facility] [address] [place], [place] [phone] Manager Bridge: Naldo Tinsley MD #### MIKE GLYHGB #### [facility] [place] [place], [place] [phone] Manager Bridge: [place] Manningholesterol in VLDL [Mass/Vol]24 mg/dLNormal1-30 [facility] on above:Performed By: #### CP #### [facility] [address] [place] [address] Manager Bridge: Naldo Tinsley MD #### MIKE, GLYHGB #### [facility] [place] [place] [address] Manager Bridge: Philip Manningstclover.total/Cholesterol in HDL [Mass ratio]2.9 {ratio}Normal<5.0[facility] on above:Performed By: #### CP #### [facility] [address] [place] [address] Manager Bridge: Naldo Tinsley MD #### MIKE, GLYHGB #### [facility] [employer] [facility] [place] [place], [place] [phone] Manager Bridge: Nelson Mckenzie MDTriglyceride [Mass/Vol]118 mg/dLNormal<150[facility] on above:Result Comment: Triglyceride Guidelines: <150 Desirable 150-199 Borderline 200-499 High >499 Very high Based on AHA Guidelines for fasting triglyceride, February 2012.Performed By: #### CP #### [facility] [address] [place] [address] Manager Bridge: Naldo Tinsley MD #### LIPR, GLYHGB #### [facility] [address] [place], [place] [phone] Manager Bridge: Nelson Mckenzie MDUroVysion Fish and Urine Cyto ( Labs)on 83-70-5374NMBMWW & UCDiagnosis InfoInvalid Interpretation CodeUc West Chester HospitalComment on above:Result Comment: A:Urine,Urine:Voided Diagnosis Summary - Clusters of urothelial cells with mild atypia; as voided urine, low grade papillary 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 Clinical correlation is indicated. Adequate cellularity for evaluation. Diagnosis Summary - The UroVysion FISH study detected normal copy numbers for chromosomes 3, 7, 17,and 9p21. 200 cells were analyzed in this evaluation. No evidence of aneuploidy for chromosomes 3, 7, or 17 or deletion of the 9p21 locus was found in cells present in this specimen. This test does not rule out the possibility of a low grade non-invasive papillary urothelial carcinoma. These findings should be correlated with cytology and cystoscopy results. * CPT: 09486, 97665. 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 Electronically signed by : on: 08/18/2024 10:00:31Performed By: #### [id number] #### [facility] [address] [place], [place] [address]Ypawuzuec Patient Summaryon [id number] Patient Summary Inpatient Patient Summary [facility] [address], [place] [address] Clinical Summary Person Information Name: KATHRYN HARGROVE Age: 69 Years : 1955 Sex: Female PCP: VERSUZANNE NASSAR MD Marital Status: Race: White Ethnicity: Non- or Language: Belizean Visit Id: Visit Reason: BLADDER CANCER Speciality: Acuity: Enc Type: Outpatient Med Service: Surgery Arrival: 08/11/2024 10:16:16 Discharge: Dispo Type: Address: [facility] [address] [facility] [phone] Provider Notes: Diagnosis: Problems Active History of [...] Immunizations Documented This Visit Final Med List: acetaminophen-oxycodone (Tylox 500 mg-5 mg Cap) 1 Capsules [...] EACH NOSTRIL Nasal Inhalation every day. hydrochlorothiazide (hydrochlorothiazide 25 mg Tab) 1 Tablets By Mouth [...] Follow up: With: Address: When: Freddy KRAUS [address], [address], [facility] [address] [place] [address] Business (1) Comments: Your bladder showed no abnormalities! Will plan on repeat bladder scope in about one year. Have a great day! Patient Education Information: EU - Cystoscopy Discharge Instructions (Custom)[facility] Main OR Intraoperative Recordon [id number] OR Intraoperative RecordMain OR Intraoperative Record IntraOp Document Type FTURO Summary Primary Physician: Freddy KRAUS MD Finalized Date/Time: 08/11/24 10:59:26 Pt. Name: KATHRYN HARGROVE/Sex: 1955 Female Med Rec #: [id number] Physician: Freddy KRAUS MD Financial #: [id number] Pt. Type: O Room/Bed: / Admit/Disch: 08/11/24 10:16:16 - Institution: Case Times FTURO Entry 1 Patient Times In Room 08/11/24 10:50:00 Out Room 08/11/24 11:00:00 Procedure Times Start 08/11/24 10:52:00 Stop 08/11/24 10:56:00 Anesthesia Times Last Modified By: Tequila PARIS, Yakelin Paris 08/11/24 10:56:38 Case Attendance FTURO Entry 1 Entry 2 Entry 3 Case Attendee Freddy KRAUS MD, RN, Kinga Gutierrez Role Performed Surgeon - Primary Prosthodontist/Owner - Primary Scrub - Primary Time In [...] Out Freddy KRAUS MD, Verified (If Participants Tequila PARIS, Yakelin Applicable) Trevor Gee Laura C Time Out [...] Signatures Signed By: Yakelin Mandel RN 08/11/24 10:59NoProMedica Defiance [facility] HospitalMain OR Preoperative Recordon [id number] OR Preoperative RecordMain OR Preoperative Record Holding Area Document Type FTURO Summary Primary Physician: Freddy KRAUS MD Finalized Date/Time: 08/11/24 10:46:23 Pt. Name: KATHRYN HARGROVE/Sex: 1955 Female Med Rec #: [id number] Physician: Freddy KRAUS MD Financial #: [id number] Pt. Type: O Room/Bed: / Admit/Disch: 08/11/24 [...] or her perioperative plan of care The patient'sright to privacy is maintained Surgery Checklist FTURO Entry 1 Patient Birthday, ID Band Procedure History and Physical, Identification: Check, Patient Verification: Surgical Consent, With Participation Patient NPO after Midnight: n/a Date/Time: 08/11/24 10:37:00 Personal Items: Glasses Personal Items CLOTHES,SHOES AND PURSE Comment: Limitations: N/A Complaints of Pain: No Pain Comment: NONE Skin Integrity Intact, Ceres, Warm, & Dry Vitals - EU Blood Pressure 166/82 Pulse 68 bpm Respirations 18 br/min SPO2 97 % Additional FISH, Other (See Specimens Comment FISH AND CYTOLOGY Specimens Collected Comment) Residual Amount - 0 RN Reviewed Yes Post Void Last Modified By: Eliza Jose 08/11/24 10:40:16 Finalized By: Eliza Jose Document Signatures Signed By: Eliza Jose 08/11/24 10:40 Eliza Jose 08/11/24 10:40 Eliza Jsoe 08/11/24 10:46[facility] CenterOperative Reporton [id number] ReportOperative Report Patient: KATHRYN HARGROVE Age: 69 years Sex: Female : 1955 Associated Diagnoses: None Author: Freddy KRAUS MD Procedure Operative Information Details: Date/ Time: 08/11/2024 11:00:00. Pre-Op Dx: Personal history of bladder cancer (HMG36-[place] Z85.51, Working, Medical). Post-Op Dx: Same. Anesthesia Type: Local. Procedure: Local Cystoscopy. Complications: None. Risks/Benefits/Informed Consent: Surgical risks, benefits, details of the [...] up arranged, Plan for one year cystoscopy. .[facility] Comment on above:Result Comment: Electronically Signed By: Freddy KRAUS MD\.br\Date and Time Signed: 08/11/24 11:01 EDTOutpatient Surgery Discharge Instructionon 30-49-2029Vvrecfigoa Surgery Discharge InstructionOutpatient Surgery Discharge Instruction [address] [address] Patient Discharge Instructions PERSON INFORMATION Name: KATHRYN HARGROVE Date of : 1955 Current Date: 08/11/2024 10:59:59 PHYSICIANS Admitting Physician: Freddy KRAUS MD Comment: Discharge Diagnosis: KATHRYN HARGROVE has been given the following list of follow-up instructions, prescriptions, and patient education materials: IF UNABLE TO CONTACT YOUR PHYSICIAN AND YOU FEEL IT IS AN EMERGENCY, GO TO THE NEAREST EMERGENCY ROOM OR CALL 911 Follow up: With: Address: When: Freddy KRAUS [address] [place] [address], [address], [place] [phone] Business (1) Comments: Your bladder showed no abnormalities! [...] A, have received the attached patient education materials/instructions and haveverbalized understanding: May we do a follow up call? Yes No I was present when discharge instructions were given Patient Signature Date Clinican/Nurse Signature Date You [...] Thank you for choosing [facility] NormalUc West Chester HospitalUroVysion Fish and Urine Cyto (P4 Labs)on 33-18-6414FLTU Method of ExtractionVoidedNormalUc West Chester HospitalComment on above:Performed By: #### [id number] #### [facility] [address] [facility] [place], [place] [address]KVIC Number of Ewsb3Gyspqul Interpretation [facility] Medical CenterComment on above:Performed By: #### [id number] #### [facility] [address] [place], [place] [address]RKWG SpecimenUrineSalem Regional Medical CenterComment on above:Performed By: #### [id number] #### [facility] [address] [place], [place] [address]WTJM Type of ServiceTechnical OnlySalem Regional Medical CenterComment on above:Performed By: #### [id number] #### [facility] [address] [place], [place] [address]Sr Panel InformationOrdered By: Bao Vaughn on 39-89-5939Brjzvigm Diastolic WX14lzEhRrh [employer] Work Phone: [phone] AQ27CBNTxa [employer] Work Phone: [phone] Systolic YP691ukPxCnt [employer] Work Phone: [phone] Stress EF77 %Bon [employer] Work Phone: [phone] Diastolic TM95hcStGss [employer] Work Phone: [phone] Estimated Workload1.0METSBon [employer] Work Phone: [phone] Peak OE02GNWIje [employer] Work Phone: [phone] Percent HR Vmlxuaea49 %Bon Workers On Call Phone: [phone] Rate Pressure Usxnfzw44049ANX*mmHgBon [employer] Work Phone: [phone] Systolic GJ970pqPgOdn [employer] Work Phone: [phone] Target VH894qdzQrf [employer] Work Phone: [phone] [employer] Work Phone: [phone] [employer] Work Phone: [phone] Panel Informationon 39-44-2941Mnnavv Combined Conclusion: The study is positive for [...] Conclusion The study is positive for myocardial ischemia.[facility] CV RPACS STRESSRadiology Study observation (narrative)[facility] Metabolic Panelon 97-45-9068Bueck gap [Moles/Vol]11 mmol/L9 - 17 mmol/LBon [facility] Calcium [Mass/Vol]9.5 mg/dL8.6 - 10.4 mg/dLBon [facility] HospitalChloride [Moles/Vol]100 mmol/L98 - 107 mmol/LBon [facility] HospitalCO2 [Moles/Vol]26 mmol/L20 - 31 mmol/LBon [facility] HospitalCreatinine [Mass/Vol]0.7 mg/dL0.5 - 0.9 mg/dLBon [facility] HospitalEst, Glom Filt Rate- PINFBon [facility]ville HospitalComment on above: These results are not intended [...] therapy that affects renal tubular secretion. Glucose [Mass/Vol]185 mg/tXDrmm27 - 99 mg/dLBon [facility] Interpretation and review of laboratory resultsAbnormalBon [facility] Potassium [Moles/Vol]3.8 mmol/L3.7 - 5.3 mmol/LBon [facility] HospitalSodium [Moles/Vol]137 mmol/L135 - 144 mmol/LBon [facility] HospitalUrea nitrogen [Mass/Vol]18 mg/dL8 - 23 mg/dLBon [facility] HospitalUrea nitrogen/Creatinine [Mass ratio]26 mg/mgHigh9 - 20Bon [facility] Metabolic Profon 20-33-5614Vixsd gap [Moles/Vol]11 mmol/LNormal9-17Community Memorial HospitalComment on above:Performed By: #### MG, AGUSTÍN, JACQUELINE #### [facility] [address] [id number] Manager Bridge: Naldo Tinsley MDBUN/CRE Ijyzj69Head2-74IxzhrCommunity Memorial Hospital Comment on above:Performed By: #### MG, BMP, TROPI #### [facility] [address] [place] [address] Manager Bridge: [place] Dicksonalcium [Mass/Vol]9.5 mg/dLNormal8.6-10.4Community Memorial HospitalComment on above:Performed By: #### MG, BMP, TROPI #### [facility] [address] [place] [address] Manager Bridge: [place] Dicksonhloride [Moles/Vol]100 mmol/WNakoel69-068CvztcCommunity Memorial HospitalComment on above:Performed By: #### MG, BMP, TROPI #### [facility] [address] [place] [address] Manager Bridge: Naldo Tinsley MDCO2 [Moles/Vol]26 mmol/XBhrjhi46-89KvnhiCommunity Memorial HospitalComment on above:Performed By: #### MG, BMP, TROPI #### [facility] [address] [place] [address] Manager Bridge: [place] Dicksonreatinine [Mass/Vol]0.7 mg/dLNormal0.5-0.9Community Memorial HospitalComment on above:Performed By: #### MG, BMP, TROPI #### [facility] [address] [place] [id number] Manager Bridge: Naldo Tinsley MDGFR/1.73 sq M.predicted among non-blacks MDRD (S/P/Bld) [Vol rate/Area]mL/min/{1.73_m2}Normal>60Community Memorial HospitalComment on above:Result Comment: These results are not intended for [...] or following therapy that affects renal tubular secretion.Performed By: #### MG, BMP, TROPI #### [facility] [address] [place] [address] Manager Bridge: Naldo Tinsley MDGlucose [Mass/Vol]185 mg/uJKawh14-75BgfjbCincinnati VA Medical CenterComment on above:Performed By: #### MG, BMP, TROPI #### [facility] [address] [place] [address] Manager Bridge: POLO Dicksonotassium [Moles/Vol]3.8 mmol/LNormal3.7-5.3MCincinnati VA Medical CenterComment on above:Performed By: #### MG, BMP, TROPI #### [facility] [address] [place] [address] Manager Bridge: Naldo Tinsley MDSodium [Moles/Vol]137 mmol/AVodrgq858-310FblqrCommunity Memorial HospitalComment on above:Performed By: #### MG, BMP, TROPI #### [facility] [address] [place] [address] Manager Bridge: Naldo Tinsley MDUrea nitrogen [Mass/Vol]18 mg/dLNormal8-23Community Memorial HospitalComment on above:Performed By: #### MG, BMP, TROPI #### [facility] [address] [place] [address] Manager Bridge: Naldo Tinsley MDMagnesiumon 90-02-4637Nikuhpotn [Mass/Vol]1.8 mg/dL1.6 - 2.6 mg/dLBon Secours Premier Health Miami Valley HospitalMagnesium [Mass/Vol]1.8 mg/dLNormal 1.6-2.6MMercy Health Urbana Hospitalment on above:Performed By: #### MG, BMP, TROPI #### [facility] [address] [place] [address] Manager Bridge: Snow Dickson Panel Informationon 93-75-0358Kjw [facility] Geneva Medical Centeroponinon 03-82-3422Avbghydv I.cardiac High sensitivity method [Mass/Vol]13 ng/L0 - 14 ng/LBon [facility] on above:High Sensitivity Troponin values cannot be compared with other Troponin methodologies.Bon [facility] Medical Centeroponin, High Sens13 ng/LNormal0-14[facility] on above:Result Comment: High Sensitivity Troponin values cannot be compared with other Troponin methodologies.Performed By: #### MG, BMP, TROPI #### [facility] [address] [place] [address] Manager Bridge: MAC Dickson Breast - bilateral screeningon 05-23-2024 OVERALL ASSESSMENT: BIRADS: 1 Negative, no evidence of malignancy. A letter of notification will be mailed to the patient. Performing Facility: [facility] [address] [place] [address] [facility] CONSOLIDATEDHISTORY: Screening. Family history of breast carcinoma. TECHNIQUE: [...] skin lesions and linear markers represent scars.) [facility] CONSOLIDATEDDBT Breast - bilateral screeningOrdered By: Mehul Doyle on 95-77-8061Gpr [facility] Work Phone: mam RENEE DIGITAL SCREEN BILATERALon 67-90-8301OZF RENEE DIGITAL SCREEN BILATERALHISTORY: Screening. Family history of breast carcinoma. TECHNIQUE: [...] be mailed to the patient. Performing Facility: [place] [address] Interpreted by: Mehul Doyle Jr., MD Signed by: Mehul Doyle Jr., MD 05/23/24 Final resultNormalMerOhio Valley Hospital Breast - bilateral screeningon 45-33-6915Ixmquwytv Study observation (narrative)Shirley Cottonjaret [facility] Miami Valley HospitalAMYLASE on 69-41-6375Avismol [Catalytic activity/Vol]32 U/SYneodb31-365Gmh [facility] HospitalComment on above:Performed By: #### QUINN, CMP, LIPA #### [facility] [address] [place] [address] [address] Navi Sargent AUTO DIFFon 12-72-6984GQOG #0.0 103/ulNormal0.0-0.1The [facility]letown HospitalComment on above:Performed By: #### CBC #### [facility] [address] [place] [address] Dr. Navi DayBasophils/100 WBC (Bld)0.3 %Normal0.2-2.0The [facility] Comment on above:Performed By: #### CBC #### [facility] [address] [place] [address] [address] Navi Flanagan #0.0 103/ulNormal0.0-0.7The [facility]own HospitalComment on above: Performed By: #### CBC #### [facility] [address] [place] [address] Dr. Navi Mccoyosinophils/100 WBC (Bld)0.6 %Critically low0.9-7.0The [facility]own HospitalComment on above:Performed By: #### CBC #### [facility] [address] [place] [address] [address] Navi Mccoyrythrocyte distribution width (RBC) [Ratio]12.7 %Llgjgx93.0-15.0 The [facility]own HospitalComment on above:Performed By: #### CBC #### [facility] [address] [place] [address] Dr. Navi DayHematocrit (Bld) [Volume fraction]42.2 %Gugsmo57.0-48.0The [facility] HospitalComment on above:Performed By: #### CBC #### [facility] [address] [place] [address] Dr. Navi DayHemoglobin (Bld) [Mass/Vol]14.2 g/tHWxjulr85.0-16.0The [facility] HospitalComment on above:Performed By: #### CBC #### [facility] [address] [place] [address] Dr. Navi Mcconnell #0.03 10e3/ulNormal0.00-0.03The [facility]own HospitalComment on above:Performed By: #### CBC #### [facility] [address] [place] [address] Dr. Navi Mcconnell %0.5 %Normal0.0-0.5The [facility]own HospitalComment on above: Performed By: #### CBC #### [facility] [address] [place] [address] Dr. Navi De La Fuente #0.8 103/ulCritically low1.2-3.8The [facility] Comment on above:Performed By: #### CBC #### [facility] [address] [place] [address] Dr. Navi Gonzalezhocytes/100 WBC (Bld)12.6 %Critically low20.5-60.0The [facility] HospitalComment on above:Performed By: #### CBC #### [facility] [address] [place] [address] Dr. Navi LewisUAL DIFF REQNONormalThe [facility]own HospitalComment on above: Performed By: #### CBC #### [facility] [address] [place] [address] [address] Navi Doherty (RBC) [Entitic mass]27.8 ssGauead00.7-34.0The [facility] HospitalComment on above:Performed By: #### CBC #### [facility] [address] [place] [address] Dr. Navi Doherty (RBC) [Mass/Vol]33.6 g/uCSxvpco79.9-35.2The [facility] HospitalComment on above:Performed By: #### CBC #### [facility] [address] [place] [address] Dr. Navi Doherty (RBC) [Entitic vol]82.6 pWUpjmxo11.0-99.0The [facility] HospitalComment on above:Performed By: #### CBC #### [facility] [address] [place] [address] Dr. Navi Cheung #0.5 103/ulNormal0.3-0.8The [facility]own HospitalComment on above:Performed By: #### CBC #### [facility] [address] [place] [address] Dr. Navi Araujoocytes/100 WBC (Bld)7.6 %Normal1.7-12.0The [facility] Comment on above:Performed By: #### CBC #### [facility] [address] [place] [address] Dr. Navi Monteiro #5.0 103/ulNormal1.4-6.5The [facility] HospitalComment on above:Performed By: #### CBC #### [facility] [address] [place] [address] Dr. Navi Gilesutrophils/100 WBC (Bld)78.4 %Critically high43.0-75.0The [facility]own HospitalComment on above:Performed By: #### CBC #### [facility] [address] [place] [address] Dr. Navi Hernandezlet mean volume (Bld) [Entitic vol]10.2 fLNormal9.5-13.5The [facility] HospitalComment on above:Performed By: #### CBC #### [facility] [address] [place] [address] Dr. Navi DayPLT243 103/ufMlwhjw922-657Rld [facility] HospitalComment on above: Performed By: #### CBC #### [facility] [address] [place] [address] Dr. Navi DayRBC5.11 106/ulNormal4.20-5.40The [facility] HospitalComment on above:Performed By: #### CBC #### [facility] [address] [place] [address] Dr. Navi DayWBC6.4 103/ulNormal4.0-11.0The [facility] HospitalComment on above: Performed By: #### CBC #### [facility] [address] [place] [address] Dr. Navi DayCT ABD/PELV W CONon 55-76-7375RJ ABD/PELV W CONCT SCAN OF THE ABDOMEN AND PELVIS WITH [...] Electronically authenticated by: Lisandra CAMERON Date: 2022-07-08 21:04[facility] URINE PROFILEon 37-67-2733Zasvmhwch Ql (U)NegativeNormal NEGATIVEMercy Health Fairfield Hospitalment on above:Performed By: #### ERUR #### [facility] [address] [place] [address] Dr. Navi DayClarity (U)CLEARNormalCLEARDiley Ridge Medical CenterComment on above: Performed By: #### ERUR #### [facility] [address] [place] [address] Dr. Navi Palacios (U)YELLOWNormalYELLOWDiley Ridge Medical CenterComment on above: Performed By: #### ERUR #### [facility] [address] [place] [address] Dr. Navi Shipman micrscopic examination will be performed if indicated. NormalDiley Ridge Medical CenterComveterans affairs medical center on above:Performed By: #### ERUR #### [facility] [address] [place] [address] Dr. Navi DayGlucose Ql (U)NegativeNormalNEGATIVEMercy Health Fairfield Hospitalment on above:Performed By: #### ERUR #### [facility] [address] [address] [address] Navi DayHemoglobin Ql (U)NegativeNormalNEGOhio State East Hospital Comment on above:Performed By: #### ERUR #### [facility] [address] [place] [address] Dr. Navi DayKetones Ql (U)15 mg/dlAbnormalNEGOhio State East Hospital Comment on above:Performed By: #### ERUR #### [facility] [address] [place] [address] Dr. Navi DayLEUKOCYTESTRACEAbnormalNEGATIVEThe [facility]iller HospitalComment on above:Performed By: #### ERUR #### [facility] [address] [address] [address] Navi Alejandra Ql (U)NegativeNormalNEGATIVEThe [facility]own HospitalComment on above:Performed By: #### ERUR #### [facility] [address] [place] [address] Dr. Navi DaypH (U)6.0 [pH]Normal5-9The [facility] HospitalComment on above: Performed By: #### ERUR #### [facility] [address] [place] [address] Dr. Navi DaySPEC GRAVITY1.042Vfgfsx8.005-<=1.025The [facility]own HospitalComment on above:Performed By: #### ERUR #### [facility] [address] [place] [address] Dr. Navi Teran PROTEINNegativeNormalNEGATIVE/ TRACEThe [facility] Comment on above:Performed By: #### ERUR #### [facility] [address] [place] [address] Dr. Navi Rodgers MICRO INDNOT INDICATEDNormalThe [facility]own HospitalComment on above:Performed By: #### ERUR #### [facility] [address] [place] [address] Dr. Navi DayUrobilinogen Qn (U)0.2 {Claire'U}/dLNormal0.2 - 1.0The [facility]own HospitalComment on above:Performed By: #### ERUR #### [facility] [address] [place] [address] Dr. Navi DayLIPASEon 26-44-8924Jwqvhx [Catalytic activity/Vol]105.0 U/LNormal 73.0-393.0The [facility] HospitalComment on above:Performed By: #### QUINN, CMP, LIPA #### [facility] [address] [place] [address] Dr. Navi DayPROF 14(COMP METB)on 68-85-6478Ivnlpag [Mass/Vol]3.1 g/dL Critically low3.4-5.0The [facility] HospitalComment on above:Performed By: #### QUINN, CMP, LIPA #### [facility] [address] [place] [address] Dr. Navi DayAlbumin/Globulin [Mass ratio]0.8 {ratio}NormalThe [facility]own HospitalComment on above:Performed By: #### QUINN, CMP, LIPA #### [facility] [address] [place] [address] Dr. Navi Metzger [Catalytic activity/Vol]58 U/DZnlwer05-318Sgj [facility] HospitalComment on above:Performed By: #### QUINN, CMP, LIPA #### [facility] [address] [place] [address] Dr. Navi Osborne [Catalytic activity/Vol]22 U/HWieaku51-94Ghq [facility] HospitalComment on above:Performed By: #### QUINN, CMP, LIPA #### [facility] [address] [place] [address] Dr. Navi Kennedy gap [Moles/Vol]12.5 mmol/LNormalThe [facility] Comment on above:Performed By: #### QUINN, CMP, LIPA #### [facility] [address] [place] [address] Dr. Navi DayAST [Catalytic activity/Vol]23 U/ASkdbmj75-55Qym [facility] HospitalComment on above:Performed By: #### QUINN, CMP, LIPA #### [facility] [address] [place] [address] Dr. Navi DayBilirubin [Mass/Vol]0.5 mg/dLNormal0.2-1.0The [facility] Comment on above:Performed By: #### QUINN, CMP, LIPA #### [facility] [address] [place] [address] Dr. Navi DayCalcium [Mass/Vol]9.0 mg/dLNormal8.5-10.1[facility] Comment on above:Performed By: #### QUINN, CMP, LIPA #### [facility] [address] [address] [address] Navi DayChloride [Moles/Vol]100 mmol/YNdckbn28-241Hqi [facility] Comment on above:Performed By: #### QUINN, CMP, LIPA #### [facility] [address] [address] [address] Navi DayCO2 [Moles/Vol]27.0 mmol/HWpacjm84.0-32.0The [facility] Comment on above:Performed By: #### QUINN, CMP, LIPA #### [facility] [address] [address] [address] Navi DayCreatinine [Mass/Vol]0.79 mg/dLNormal0.55-1.02The [facility] HospitalComment on above:Performed By: #### QUINN, CMP, LIPA #### [facility] [address] [place] [address] Dr. Mcelroy ChangEGFR-AF BAHAMIAN>60Normal>=60The [facility] HospitalComment on above:Performed By: #### QUINN, CMP, LIPA #### [facility] [address] [address] [address] Navi MccoyGFR-NON AF BAHAMIAN>60Normal>=60The [facility] HospitalComment on above:Performed By: #### QUINN, CMP, LIPA #### [facility] [address] [address] [address] Navi DayGlobulin (S) [Mass/Vol]3.8 g/dLNormalThe [facility]own HospitalComment on above:Performed By: #### QUINN, CMP, LIPA #### [facility] [address] [address] [address] Navi DayGlucose [Mass/Vol]168 mg/dLCritically iwnp52-799Nul [facility] HospitalComment on above:Performed By: #### QUINN, CMP, LIPA #### [facility] [address] [place] [address] Dr. Navi DayPotassium [Moles/Vol]3.5 mmol/LNormal3.5-5.1The [facility] Comment on above:Performed By: #### QUINN, CMP, LIPA #### [facility] [address] [address] [address] Navi DayProtein [Mass/Vol]6.9 g/dLNormal6.4-8.2[facility] Comment on above:Performed By: #### QUINN, CMP, LIPA #### [facility] [address] [address] [address] Navi DaySodium [Moles/Vol]136 mmol/CDehmfh490-214EkbDiley Ridge Medical Center Comment on above:Performed By: #### QUINN, CMP, LIPA #### [facility] [address] [address] [address] Navi Quiñones nitrogen [Mass/Vol]19.0 mg/dLCritically high7.0-18.0[facility] CenterComment on above:Performed By: #### QUINN, CMP, LIPA #### [facility] [address] [address] [address] Navi Quiñones nitrogen/Creatinine [Mass ratio]24.1 mg/mgNormalThe [facility] HospitalComment on above:Performed By: #### QUINN, CMP, LIPA #### [facility] [address] [address] [address] Navi Garay RENEE DIGITAL SCREEN BILATERALon 05-19-2022 BI-RADS 1 - Negative, no evidence of malignancy. Normal interval followup in 12 months. OVERALL ASSESSMENT- NEGATIVE A letter of notification will be sent to the patient regarding the results. [facility] CONSOLIDATEDHISTORY: Screening. Family history of breast carcinoma. TECHNIQUE: Bilateral digital screening mammogram with CAD. 2-D and 3-D tomography. FINDINGS: Two views of each breast show scattered areas of fibroglandular density. No change from prior studies most recent 04/03/2020. Suspicious calcifications: None. Suspicious mass: None. (If skin markers were applied, circles represent skin lesions and linear markers represent scars.) [facility] CONSOLIDATEDRadiology Study observation (narrative)[facility] MEDICAL CENTERHittite Microwave [facility] F[facility] MEDICAL CENTERToplist Work Phone: mam RENEE DIGITAL SCREEN BILATERALOrdered By: Mehul Doyle on [id number] [facility] [employer] Work Phone: COVID/FLU/RSV RT-PCRon 59-89-5711HTYG-CoV-2 (COVID-19) RNA JULIA+probe Ql (Unsp spec)PositiveBolckow [employer] Other COVID/FLU/RSV RT-PCRNegativeBolckow [employer] Other COVID Quick Testingon 74-32-3793CcxzhmIdtblavmQzjkk [employer] Other Quick Fluon 50-39-5005ARVVP Ab CF (S) [Titer]Negative [facility] [employer] Other FLUBV Ab CF (S) [Titer]NegativeBolckow [employer] Other XR chest 2V*on 83-66-4640CM chest 2V*[facility] [employer] Other XR chest 2V*[facility] [employer] Other XR chest 2V*[address] [facility] [employer] Other XR chest 2V*[place], [place] [address]Tcgqk [employer] Other XR chest 2V*XRay ReportBolckow [employer] Other XR chest 2V*SignedBolckow [employer] Other XR chest 2V*Patient: Kathryn Hargrove MR#: [id number] [employer] Other XR chest 2V*81006Kzhbe [employer] Other xr chest 2V*: 1955 Acct:[id number] [employer] Other xr chest 2V*Age/Sex: 66 / F ADM Date: 09/28/21[place] [employer] Other xr chest 2V*Loc: XDUCLY Room: Type: [facility] [employer] Other xr chest 2V*Attending Dr: Anais Farley [facility] [employer] Other xr chest 2V*Ordering Provider: Anais Farley APRN [facility] [employer] Other XR chest 2V*Date of Service: 09/28/21[place] [employer] Other xr chest 2V* XR/XR chest 2V*: [facility] [employer] Other xr chest 2V*Copies to: Anais Farley, [facility] [employer] Other xr chest 2V*Plain film chest2 viewBolckow [employer] Other xr chest 2V*HISTORY:Productive cough.adjust Other xr chest 2V*COMPARISON:[facility] [employer] Other xr chest 2V*FINDINGS: The cardiac, mediastinal and hilar silhouettes are within normal limits. No acute lungBolckow [employer] Other xr chest 2V*process, pleural effusion or pneumothorax identified. Bony structures are intact.adjust Other xr chest 2V* XR/XR chest 2V*[place] [employer] Other xr chest 2V*IMPRESSION: No acute process.adjust Other xr chest 2V*Impression dictated by: Sae Stafford M.D.09/28/2021 11:55 [facility] [employer] Other xr chest 2V*Dictation Location: [id number] [employer] Other xr chest 2V*Transcribed By: LEE 09/28/[address] [place] [address] [employer] Other xr chest 2V*Dictated By: Sae Stafford DO 09/28/21 [facility]60.[facility]fre[facility] [employer] Other xr chest 2V*Signed By:[facility] [employer] Other xr chest 2V*09/28/21 [facility] HospitalNewYork60.comfreeman cancer institute [employer] Other xr chest 2V*[facility] Main [place] [address] [place] [address] XRay Report Signed Patient: Kathryn Hargrove MR#: [id number] : 1955 Acct:[id number] Age/Sex: 66 / F ADM Date: 09/28/21 Loc: XDUC Room: Type: [facility] Attending Dr: Anais Farley PROTECTION ENGINEER Ordering Provider: Anais Farley APRN Date of [...] Sae Stafford M.D.09/28/2021 11:55 AM Dictation Location: [address] [address] Transcribed By: LEE 09/28/21 1155 Dictated By: Sae Stafford DO 09/28/21 1155 Signed By: 09/28/[address] [place], [place] [address]LIPID PROFILEon 09-27-2021 CHOL-HDL RATIO [facility] Cleveland-FairhillComment on above:Result Comment: 3.3 - 4.4 LOW RISK 4.4 - 7.1 AVERAGE RISK 7.1 - 11.0 MODERATE RISK >11.0 HIGH RISKPerformed By: #### LIPID, CMP #### [facility] [address] [place] [address] Dr. Navi DayCholesterol [Mass/Vol]203 mg/dLCritically high<=200The [facility] State East Hospitalment on above:Performed By: #### LIPID, CMP #### [facility] [address] [address] [address] Navi DayCholesterol in HDL [Mass/Vol]72 mg/dLCritically elhp76-21Emo [facility] HospitalComment on above:Performed By: #### LIPID, CMP #### [facility] [address] [address] [address] Navi DayCholesterol in LDL [Mass/Vol]109.6 mg/dLBethesda North HospitalComment on above:Performed By: #### LIPID, CMP #### [facility] [address] [place] [address] Dr. Navi Tateesterraúl.total/Cholesterol in HDL [Mass ratio]2.8 {ratio} NormalThe [facility] HospitalComment on above:Performed By: #### LIPID, CMP #### [facility] [address] [place] [address] Dr. Navi Zimmerman NORMAL> or = 60 mg/dl - LOW CARDIOVASCULAR RISK <40 mg/dl - HIGH CARDIOVASCULAR RISKNoMarietta Osteopathic ClinicComveterans affairs medical center on above:Performed By: #### LIPID, CMP #### [facility] [address] [place] [address] Dr. Navi Graham CALC NORMALSEE BELOWBethesda North HospitalComment on above:Result Comment: <100 mg/dl OPTIMAL 100 - 129 mg/dl NEAR OR ABOVE OPTIMAL 130 - 159 mg/dl BORDERLINE HIGH 160 - 189 mg/dl HIGH >190 mg/dl VERY HIGH Performed By: #### LIPID, CMP #### [facility] [address] [place] [address] Dr. Navi DayTriglyceride [Mass/Vol]107 mg/dLNormal<=150The [facility] Comment on above:Performed By: #### LIPID, CMP #### [facility] [address] [place] [address] Dr. Navi HuangLDL CALC21.4 mg/dLNormalThe [facility] HospitalComment on above: Performed By: #### LIPID, CMP #### [facility] [address] [place] [address] Dr. Navi Francis 14(COMP METB)on 56-54-5952Tafntki [Mass/Vol]3.6 g/dLNormal 3.4-5.0The [facility] HospitalComment on above:Performed By: #### LIPID, CMP #### [facility] [address] [place] [address] Dr. Navi DayAlbumin/Globulin [Mass ratio]0.8 {ratio}NormalThe [facility] HospitalComment on above:Performed By: #### LIPID, CMP #### [facility] [address] [place] [address] Dr. Navi Metzger [Catalytic activity/Vol]52 U/NQmbyuh23-829Zag [facility] HospitalComment on above:Performed By: #### LIPID, CMP #### [facility] [address] [place] [address] Dr. Navi Osborne [Catalytic activity/Vol]34 U/EJjqvsn59-04Zve [facility] HospitalComment on above:Performed By: #### LIPID, CMP #### [facility] [address] [place] [address] Dr. Navi Kennedy gap [Moles/Vol]15.7 mmol/LNormalThe [facility] Comment on above:Performed By: #### LIPID, CMP #### [facility] [address] [place] [address] Dr. Navi Nieves [Catalytic activity/Vol]19 U/YTmhjjv67-99Tcx [facility] HospitalComment on above:Performed By: #### LIPID, CMP #### [facility] [address] [place] [address] Dr. Navi DayBilirubin [Mass/Vol]0.4 mg/dLNormal0.2-1.0The [facility] Comment on above:Performed By: #### LIPID, CMP #### [facility] [address] [place] [address] Dr. Navi DayCalcium [Mass/Vol]9.3 mg/dLNormal8.5-10.1The [facility] Comment on above:Performed By: #### LIPID, CMP #### [facility] [address] [address] [address] Navi DayChloride [Moles/Vol]100 mmol/OEktmjm57-588Wlt [facility] Comment on above:Performed By: #### LIPID, CMP #### [facility] [address] [address] [address] Navi DayCO2 [Moles/Vol]28.4 mmol/SNlkstq32.0-32.0The [facility] Comment on above:Performed By: #### LIPID, CMP #### [facility] [address] [place] [address] Dr. Navi DayCreatinine [Mass/Vol]0.84 mg/dLNormal0.55-1.02The [facility] HospitalComment on above:Performed By: #### LIPID, CMP #### [facility] [address] [place] [address] Dr. Navi MccoyGFR-AF BAHAMIAN>60Normal>=60The [facility] HospitalComment on above:Performed By: #### LIPID, CMP #### [facility] [address] [place] [address] Dr. Navi MccoyGFR-NON AF BAHAMIAN>60Normal>=60The [facility] HospitalComment on above:Performed By: #### LIPID, CMP #### [facility] [address] [place] [address] Dr. Navi DayGlobulin (S) [Mass/Vol]4.1 g/dLNormalThe [facility] HospitalComment on above:Performed By: #### LIPID, CMP #### [facility] [address] [place] [address] Dr. Navi DayGlucose [Mass/Vol]198 mg/dLCritically jikq64-622Ngc [facility] HospitalComment on above:Performed By: #### LIPID, CMP #### [facility] [address] [place] [address] Dr. Navi DayPotassium [Moles/Vol]4.1 mmol/LNormal3.5-5.1The [facility] Comment on above:Performed By: #### LIPID, CMP #### [facility] [address] [address] [address] Navi DayProtein [Mass/Vol]7.7 g/dLNormal6.1-8.2[facility] Comment on above:Performed By: #### LIPID, CMP #### [facility] [address] [address] [address] Navi DaySodium [Moles/Vol]140 mmol/DApmqjt206-688ZmhDiley Ridge Medical Center Comment on above:Performed By: #### LIPID, CMP #### [facility] [address] [address] [address] Navi DayUrea nitrogen [Mass/Vol]19.0 mg/dLCritically high7.0-18.0[facility] CenterComment on above:Performed By: #### LIPID, CMP #### [facility] [address] [place] [address] Dr. Navi Quiñones nitrogen/Creatinine [Mass ratio]22.6 mg/mgNoalThe [facility] HospitalComment on above:Performed By: #### LIPID, CMP #### [facility] [address] [place] [address] Dr. Navi Souza Quick Testingon 49-79-5825MdzldzEalpvymmDarpp Coast [employer] Other Quick Fluon 09-79-1935AOOLR Ab CF (S) [Titer]Negative [facility] [employer] Other FLUBV Ab CF (S) [Titer]NegativeNoFulton County Medical Center [employer] Other mAM RENEE DIGITAL SCREEN BILATERALon 40-60-2677JX-RADS 1 - Negative, no evidence of malignancy. Normal interval followup in 12 months. OVERALL ASSESSMENT- NEGATIVE A letter of notification will be sent to the patient regarding the results.[facility], KYHISTORY: Screening. Family history breast carcinoma. Prior negative left cyst aspiration and biopsy. TECHNIQUE: Bilateral digital screening mammogram with CAD, 2-D and 3-D tomography. FINDINGS: Two views of each breast show scattered areas of fibroglandular density. No change from 02/15/2019, 01/05/2018. Suspicious calcifications: None. Suspicious mass: None. Benign calcifications: None. (If skin markers were applied, circles represent skin lesions and linear markers represent scars.)[facility], [place]ima Stewart Incoming Radiant Results From [employer] - 04/04/2020 10:31 AM EST HISTORY: Screening. [...] sent to the patient regarding the results. [facility], KYAlbuminon 29-71-1077Fokpgpp [Mass/Vol]4.5 g/dL3.5 - 5.2 g/dL [facility], KYCalciumon 76-52-7901Psztlpv [Mass/Vol]10.2 mg/dL8.6 - 10.4 mg/dLBlanchard Valley Health [facility], NYComprehensive Metabolic Panelon 47-87-7227Krdgbpq [Mass/Vol]4.5 g/dL3.5 - 5.2 g/dLBlanchard Valley [facility], KYAlbumin/Globulin [Mass ratio]NOT REPORTEDBl[facility], KYALP [Catalytic activity/Vol]67 U/L35 - 104 U/LMLima City Hospital, KYALT [Catalytic activity/Vol]23 U/L5 - 33 U/LMLima City Hospital, KYAnion gap [Moles/Vol]7 mmol/LLow9 - 17 mmol/LMLima City Hospital, KYAST [Catalytic activity/Vol]25 U/L<32[facility], KYBilirubin Ql (U)0.49 mg/dL 0.3 - 1.2 mg/dLPremier Health [facility]- [place], KYBun/Cre Whtre49BvlvlBlanchard [facility], KYCalcium [Mass/Vol]11.2 mg/dLHigh8.6 - 10.4 mg/dLBlanchard Valley [facility], KYChloride [Moles/Vol] 97 mmol/LLow98 - 107 mmol/LMLima City Hospital, KYCO2 [Moles/Vol]30 mmol/L20 - 31 mmol/LMPremier Health Miami Valley Hospital- [place], KYCreatinine [Mass/Vol]0.74 mg/dL0.5 - 0.9 mg/dLBlanchard [facility], KYGFR >60>60 mL/minBlanchard Valley [facility], KYGFR Non- >60>60 mL/minBlanchard Valley [facility], KYGFR/1.73 sq M predicted among non-blacks MDRD (S/P/Bld) [Vol rate/Area]NOT REPORTEDBl[facility], [place] GFR/1.73 sq M predicted among non-blacks MDRD (S/P/Bld) [Vol rate/Area][facility], KYComment on above:Average GFR for 60-69 years old: 85 mL/min/1.73sq m Chronic Kidney Disease: <60 mL/min/1.73sq m Kidney failure: <15 mL/min/1.73sq m eGFR calculated using average adult body mass. Additional eGFR calculator available at: http://www.Merlin/multiple_crcl_2012.htm Glucose [Mass/Vol]196 mg/yFDgwq01 - 99 mg/dLBlanchard Valley [facility], KYInterpretation and review of laboratory resultsAbnormalBl[facility], KYPotassium [Moles/Vol]4.1 mmol/L3.7 - 5.3 mmol/LMPremier Health [facility]- [place], KYProtein [Mass/Vol]8.0 g/dL6.4 - 8.3 g/dLBlanchard Valley [facility], KYSodium [Moles/Vol]134 mmol/UGdf976 - 144 mmol/LMLima City Hospital, KYUrea nitrogen [Mass/Vol]12 mg/dL8 - 23 mg/dLBlanchard Valley Health System [facility], KYLipid Panelon 00-41-0596Lesztbbocrq [Mass/Vol]192 mg/dL<200[facility], NYComment on above: Cholesterol Guidelines: <200 Desirable 200-240 Borderline >240 Undesirable Cholesterol in HDL [Mass/Vol]67 mg/dL>40[facility], NYComment on above: HDL Guidelines: <40 Undesirable 40-59 Borderline >59 Desirable Cholesterol in LDL [Mass/Vol]101 mg/dL0 - 130 mg/dLBlanchard Valley Health [facility], NYComment on above: LDL Guidelines: <100 Desirable 100-129 Near to/above Desirable 130-159 Borderline >159 Undesirable Direct (measured) LDL and calculated LDL are not interchangeable tests. Cholesterol in VLDL [Mass/Vol]NOT REPORTED1 - 30 mg/dLBlanchard Valley Health [facility], [place] Cholesterol.total/Cholesterol in HDL [Mass ratio]2.9 {ratio}<5[facility] NYTriglyceride [Mass/Vol]122 mg/dL<150[facility] NYComment on above: Triglyceride Guidelines: <150 Desirable 150-199 Borderline 200-499 High >499 Very high Based on AHA Guidelines for fasting triglyceride, February 2012. Patient Fasting?on 69-97-5059Lwxmxrf Fasting?yesBl[facility], NYCB Auto Differentialon 35-86-1028Rsorzhfhk (Bld) [#/Vol]0.00 10*3/uLBlanchard Valley [facility], [place] Basophils/100 WBC (Bld)0 %0 - 2 %[facility], NYDifferential TypeYESMLima City Hospital, KELSEYEosinophils (Bld) [#/Vol]0.30 10*3/uLBlanchard Valley Health [facility], [place] Eosinophils/100 WBC (Bld)3 %0 - 5 %[facility], NYErythrocyte distribution width (RBC) [Ratio]13.7 %12.1 - 15.2 %[facility], KELSEYHematocrit (Bld) [Volume fraction]40.1 %36 - 46 %[facility], NYHemoglobin (Bld) [Mass/Vol] 13.3 g/dL12 - 16 g/dLBlanchard Valley Health System [facility], NYLymphocytes (Bld) [#/Vol]2.00 10*3/uL [facility], KELSEYLymphocytes/100 WBC (Bld)22 %15 - 40 %[facility], [place] MCH (RBC) [Entitic mass]27.9 pg26 - 34 pgBlanchard Valley Health System [facility], KELSEYMCHC (RBC) [Mass/Vol]33.2 g/dL31 - 37 g/dLBlanchard Valley Health System [facility], KELSEYMCV (RBC) [Entitic vol]83.9 fL80 - 100 fLBlanchard Valley Health System [facility], KYMonocytes (Bld) [#/Vol]0.70 10*3/uLBlanchard Valley Health [facility], KYMonocytes/100 WBC (Bld)8 %4 - 8 %[facility], KELSEYPlatelet mean volume (Bld) [Entitic vol]NOT REPORTED6 - 12 fLBlanchard Valley Health System [facility], KYPlatelets (Bld) [#/Vol]NOT REPORTEDBlanchard [facility], KYPlatelets (Bld) [#/Vol]255 10*3/uL [facility], KELSEYRBC (Bld) [#/Vol]4.78 10*6/uL4 - 5.2 m/uLBlanchard [facility] System [facility], KELSEYRBC morphology finding Nom (Bld)NOT REPORTEDBlanchard [facility], NYSegmented neutrophils/100 WBC (Bld)67 %47 - 75 %[facility], KELSEYSegs Absolute6.00[facility], KYWBC (Bld) [#/Vol]NOT REPORTEDper 100 WBCBlanchard Valley Health System [facility], KELSEYWBC (Bld) [#/Vol]9.0 10*3/[facility], KELSEYWBC MorphologyNOT REPORTEDBlanchard [facility], KYOtheron 75-48-2665Igbsmply granulocytes (Bld) [#/Vol]NOT REPORTED [facility], KELSEYHIM DIGITAL SCREEN W OR WO CAD BILATERALon 96-29-2277Qtpwho bilateral mammography. BI-RADS 2 - Benign, no evidence of malignancy. Normal interval followup is recommended in 12 months. OVERALL ASSESSMENT- BENIGN A letter of notification will be sent to the patient regarding the results.[facility], KELSEYEXAM: [facility] D[facility]ITAL [facility]EN W OR WO CAD BILATERAL HISTORY: Reason for exam:->screening. COMPARISON:01/05/2018, 10/14/2016, 10/09/2015. TECHNIQUE: 2D views FINDINGS: Breasts are of scattered fibroglandular composition. Minimal postsurgical scarring is seen in the upper-outer left breast, and this is stable. No developing masses, microcalcifications, or enlarged lymph nodes.[facility] HospitalPat Mhpn Incoming Radiant Results From [employer] - 02/16/2019 10:14 AM EDT EXAM: THIERNO DIGITAL SCREEN W OR WO CAD BILATERAL HISTORY: Reason for exam:->screening. COMPARISON: 01/05/2018, 10/14/2016, 10/09/2015. TECHNIQUE: 2D views FINDINGS: Breasts are of scattered fibroglandular composition. Minimal postsurgical scarring is seen in the upper-outer left breast, and this is stable. No developing masses, microcalcifications, or enlarged lymph nodes. IMPRESSION: Benign bilateral mammography. BI-RADS 2 - Benign, no evidence of malignancy. Normal interval followup is recommended in 12 months. OVERALL ASSESSMENT- BENIGN A letter of notification will be sent to the patient regarding the results. [facility] HospitalRunfacesCASS [facility], [place] Vital Signs Date TimeVital SignValuePerforming OpxhkmdwpVsizpsrk75-29-5689 10:58-0500Body agmbdo705.1 Tiffaniehrcollette Garcia DPM Work Phone: [employer] SolutionsBarton County Memorial HospitalQcsdkdfxzn01-92-6931 10:58-0500Body mass index (BMI) [Ratio]39.94 kg/i4Tytuzdvlloqgina Garcia DPM Work Phone: [employer] SolutionsB[facility] HospitalEypkrtjdob78-71-7594 10:58-0500Body kficoh370.86 kgChgina Garcia DPM Work Phone: [employer] SolutionsB[facility] HospitalTfyohnksyv21-90-3448 10:58-0500Diastolic blood gwuujsdy94 mm[Hg]Mary Anne Garcia DPM Work Phone: [employer] SolutionsB[facility] HospitalKlztrccqqs36-46-8121 10:58-0500Heart rate68 /min Mary Anne Garcia DPM Work Phone: [employer] SolutionsB[facility] HospitalIslkreiihf96-54-0038 10:58-0500Systolic blood kfmqfubt947 mm[Hg]Mary Anne Garcia DPM Work Phone: [facility] HospitalGqbubyphhs44-92-9408 13:39-0400Body gonsza096.1 cmChrcollette Garcia DPM Work Phone: [facility] HospitalOralrxgrwf27-11-5500 13:39-0400Body mass index (BMI) [Ratio]39.94 kg/t7Phnhosvcpdx Bohach DPM Work Phone: [facility] HospitalAbpajefomq56-68-9364 13:39-0400Body amvbrv135.86 kgChgina Garcia DPM Work Phone: [facility] HospitalCgwewqxhvu65-80-4016 13:39-0400Diastolic blood kbdkohmb96 mm[Hg]Mary Anne Radha DPM Work Phone: [facility] HospitalMslrttkeku68-54-8596 13:39-0400Heart rate70 /min Mary Anne Garcia DPM Work Phone: [facility] HospitalAbxljxkaws23-11-5903 13:39-0400Systolic blood mm[Hg]Mary Anne Garcia DPM Work Phone: [facility] HospitalZlkkxyvxsh00-20-2349 10:24-0500Diastolic blood mm[Hg]Kraig Arevalo DO Work Phone: [facility]01-23-2025 10:24-0500Heart rate89 /minMicchris Prateralfitano DO Work Phone: [facility]01-23-2025 10:24-0500Systolic blood jsbwvcyu463 mm[Hg]Kraig Presleyfitchance DO Work Phone: [facility]01-09-2025 10:32-0500Body qudkls279.1 cmAshtabula [facility]01-09-2025 10:32-0500Body mass index (BMI) [Ratio]38.4 kg/u5LnhjiovweAshtabula County Medical Center01-09-2025 10:32-0500Body cibpmmyeehe41.1 [degF][facility]01-09-2025 10:32-0500Body wtyxed893.77 kgAshtabula County Medical Center01-09-2025 10:32-0500Diastolic blood qdozphda04 mm[Hg][facility] 06-08-2024 10:32-0500Heart rate81 /minAshtabula County Medical Center 06-08-2024 10:32-0500Respiratory rate20 /[facility] 06-08-2024 10:32-2381YtX4% (BldA) [Mass fraction]97 %[facility]01-09-2025 10:32-0500Systolic blood mm[Hg][facility]01-03-2025 09:00-0500Diastolic blood ttqojpvu06 mm[Hg]Carlos Aguayo MD Work Phone: [facility] Uizwtm26-83-5331 09:00-0500Heart rate68 /minCarlos Aguayo MD Work Phone: bSmy[facility] County Community HospitalTilkee City HospitalRunfacesVybfbq80-22-6566 09:00-0500 Respiratory rate21 /minCarlos Aguayo MD Work Phone: bon [employer]01-03-2025 09:00-0500Systolic blood gwptvehe845 mm[Hg]Carlos Aguayo MD Work Phone: bon [facility] CampusTilkee City HospitalRunfacesHakkoj74-77-7527 08:00-0681PyB6% (BldA) [Mass fraction]90 %Carlos Aguayo MD Work Phone: bon [facility] CampusTilkee City HospitalRunfacesYwwzub54-10-2294 07:38-0500Body kzmntqlkwqo90.59 [degF]Carlos Aguayo MD Work Phone: bon [employer]01-03-2025 06:39-0500Body koahlm428.6 cmCarlos Aguayo MD Work Phone: [facility] [employer]01-03-2025 06:39-0500Body mass index (BMI) [Ratio]39.99 kg/q0YeamrCarlos Aguayo MD Work Phone: bon [facility]01-03-2025 06:39-0500Body mhntex566.69 kgBilly Back MD Work Phone: bon [facility]11-12-2024 10:20-0500Body gscojy114.1 cmBengenna Murcek DO Work Phone: [facility] HospitalEngzhtgqma93-96-6001 10:20-0500Body mass index (BMI) [Ratio]39.94 kg/x8Iwltsujc Murcek DO Work Phone: [phone] HospitalEyhjkxnzec41-87-5525 10:20-0500Body xggqep100.86 kgBenparkermin Murcek DO Work Phone: [phone] [place], [place] [address]6810-21-2024 15:26-0400Body phwiei116.1 cmBenparkermin Chanelcek DO Work Phone: [phone] [place], [place] 5844310-21-2024 15:26-0400Body mass index (BMI) [Ratio]39.94 kg/l7Atsfuklj Murcek DO Work Phone: [phone]10-21-2024 15:26-0400Body xeyxsf173.86 kgBenparkermin Chanelcek DO Work Phone: [phone] [place], [place] [address]Uskgobieqk25-47-8793 10:58-0400Body dwzsro592.1 cm[facility]10[facility]10[facility]2024 10:58-0400Body mass index (BMI) [Ratio]38.2 kg/b7IrngccdxvAshtabula County Medical Center10-10-2024 10:58-0400Body xacyeszmemh82.1 [degF][facility]10-10-2024 10:58-0400Body rgsutc791.32 kgAs[facility]abula [facility]10-10-2024 10:58-0400Diastolic blood bxcmuykt44 mm[Hg][facility]10-10-2024 10:58-0400 Heart rate92 /[facility]10-10-2024 10:58-0400 Respiratory rate18 /[facility]10-10-2024 10:58-0400 SaO2% (BldA) [Mass fraction]96 %[facility]10-10-2024 10:58-0400Systolic blood mm[Hg][facility] 12-09-2023 11:01-0400Body .1 cm[facility] 12-09-2023 11:01-0400Body mass index (BMI) [Ratio]38.6 kg/k0YkdfsvbcxAshtabula County [facility] Center07-11-2024 11:01-0400Body vcyglzflsbw68.2 [degF][facility]07-11-2024 11:01-0400Body .23 kgAs[facility]07-11-2024 11:01-0400Diastolic blood fkxpmzyx67 mm[Hg][facility]07-11-2024 11:01-0400Heart rate71 /[facility]07-11-2024 11:01-0400Respiratory rate20 /[facility]07-11-2024 11:01-3788XuD8% (BldA) [Mass fraction]97 %[facility]07-11-2024 11:01-0400Systolic blood mm[Hg] [facility]05-02-2024 14:31-0400Body .1 cm [facility]05-02-2024 14:31-0400Body mass index (BMI) [Ratio]39.2 kg/l2DjjidlruiAshtabula County Medical Center05-02-2024 14:31-0400Body hubxasetkhh02.8 [degF][facility]05-02-2024 14:31-0400Body .04 kgAs[facility]abula [facility]05-02-2024 14:31-0400Diastolic blood pqfygwdr45 mm[Hg][facility]05-02-2024 14:31-0400 Heart rate88 /[facility]05-02-2024 14:31-0400 Respiratory rate20 /[facility]05-02-2024 14:31-0400 SaO2% (BldA) [Mass fraction]97 %[facility]05-02-2024 14:31-0400Systolic blood dikmrfjf316 mm[Hg][facility] 07-13-2023 09:47-0500Body zhkddy830.1 cmChrcollette Garcia DPM Work Phone: [facility] HospitalYzhcxcjtij54-52-8489 09:47-0500Body mass index (BMI) [Ratio]39.94 kg/h0Sffbjaguckh Bohach DPM Work Phone: [facility] [phone] 09:47-0500Body .86 kgChristopher Bohach DPM Work Phone: [facility] HospitalKhqusifmmi79-30-1686 09:47-0500Diastolic blood mm[Hg]Mary Anne Garcia DPM Work Phone: [facility] HospitalBdrgjewqam86-72-2086 09:47-0500Heart rate72 /min Mary Anne De Pazach DPM Work Phone: [facility] HospitalIvxrxluacb54-73-9705 09:47-0500Respiratory rate16 /minChristopher De Pazach DPM Work Phone: [facility] HospitalNcvkfxpqsn57-70-8827 09:47-0500Systolic blood efyqrkez143 mm[Hg]Carlosshaan Baldevmary DPM Work Phone: [facility] [phone] 10:00-0400Body hytpda287.1 cmGerman Miranda Other noLecere Other 04-10-2023 10:00-0400Body mass index (BMI) [Ratio] 38.27 kg/o4BbcbxGerman Miranda Other noLecere Other 04-10-2023 10:00-0400Body uibhbqqvofo51.9 [degF]German Jacksondali Other noLecere Other 04-10-2023 10:00-0400Body sadple865.33 kgGerman Miranda Other noLecere Other 04-10-2023 10:00-0400Diastolic blood yigmglih67 mm[Hg] German Miranda Other adjust Other 04-10-2023 10:00-0400Respiratory rate20 /minGerman Miranda Other adjust Other 04-10-2023 10:00-9232FkF1% (BldA) [Mass fraction]97 % German Miranda Other adjust Other 04-10-2023 10:00-0400Systolic blood mm[Hg] German Miranda Other adjust Other 12-06-2022 12:00-0500Body nlzlwo433.1 cmStepdolores Wilburn Other adjust Other 12-06-2022 12:00-0500Body mass index (BMI) [Ratio] 38.27 kg/m9Prufxijwwkarrie Wilburn Other noLecere Other 12-06-2022 12:00-0500Body pkrvoexevde02 [degF] Charline Wilburn Other adjust Other 12-06-2022 12:00-0500Body npmjty439.33 kgStepdolores Wilburn Other adjust Other 12-06-2022 12:00-0500Respiratory rate18 /minSscarlet Wilburn Other adjust Other 12-06-2022 12:00-6510VmG0% (BldA) [Mass fraction]97 % Charline Wilburn Other adjust Other 05-01-2022 12:05-0400Body daaozr001.1 cmAromysahan Miguelito Other adjust Other 05-01-2022 12:05-0400Body mass index (BMI) [Ratio] 36.94 kg/j5Qpudo Farley Other adjust Other 05-01-2022 12:05-0400Body bxadjrgxtce12.8 [degF]Anais Farley Other [place] Other 05-01-2022 12:05-0400Body .7 kgAnais Farley Other adjust Other 05-01-2022 12:05-0400Respiratory rate18 /minAnais Farley Other adjust Other 05-01-2022 12:05-4007BuD1% (BldA) [Mass fraction]96 % Anais Farley Other adjust Other 04-09-2022 11:30-0400Body elzyyq484.1 Shelby Wilburn Other adjust Other 04-09-2022 11:30-0400Body mass index (BMI) [Ratio]37.6 kg/b0IhezovmoxCharline Wilburn Other adjust Other 04-09-2022 11:30-0400Body wfuliabkqnn26.8 [degF] Charline Wilburn Other noLecere Other 04-09-2022 11:30-0400Body bqqucs209.51 kgStkarrie Wilburn Other noLecere Other 04-09-2022 11:30-3310FdE3% (BldA) [Mass fraction]98 % Charline Wilburn Other noLecere Other 03-15-2022 10:45-0400Body qujchy945.1 cmGerman Miranda Other adjust Other 03-15-2022 10:45-0400Body mass index (BMI) [Ratio] 37.94 kg/z6XpcsuGerman Miranda Other adjust Other 03-15-2022 10:45-0400Body ltcztevghfc27.2 [degF]German Miranda Other adjust Other 03-15-2022 10:45-0400Body ntvamn972.42 kgGerman Miranda Other adjust Other 03-15-2022 10:45-0400Diastolic blood eycijbmb65 mm[Hg] German Miranda Other adjust Other 03-15-2022 10:45-0400Respiratory rate20 /minGerman Miranda Other adjust Other 03-15-2022 10:45-5089ZwG4% (BldA) [Mass fraction]100 % German [facility] Other [employer] Other 03-15-2022 10:45-0400Systolic blood qwrskxyw453 mm[Hg] German [facility] Other [employer] Other Encounters Encounter DateEncounter TypeCare ProviderFacilityStart: 04-03-2025 End: 42-58-8166Dqqqtu flowsMora Garcia DPM Work Phone: noms [facility] PodiatryStart: 04-03-2025 End: 79-22-9966Zzhdnz Hunter Garcia DPM Work Phone: noms [facility] PodiatryStart: 04-03-2025 End: 46-37-9202Tfbply outpatient visit 15 minutesChrisrodrigo Garcia DPM Work Phone: noms [place] PodiatryComment on above:Contusion of left great toe with damage to nail, initial encounter (Primary Dx); Diabetic polyneuropathy associated with type 2 diabetes mellitus (HCC); Onychomycosis; Pain in both feetStart: 04-03-2025 End: 24-34-2377rtwuxoqzvpPDIPRBPSWQZ J BOHACHNot AvailableStart: 10-17-2024 End: 59-07-2944xlhwdnbqygPZMQEJesse Carrasco [facility] Centertart: 10-17-2024 End: 46-36-0722Jaomonjuyb hospital visit by Pineda Garcia MD Work Phone: mZ LaboratoryComment on above:Type 2 diabetes mellitus with hyperglycemia, without long-term current use of insulin (HCC) Start: 09-11-2024 End: 02-69-6672Zvzaoo Hunter Garcia DPM Work Phone: noms [facility] PODIATRYStart: 09-11-2024 End: 10-80-4986Mshrto flowsMora Garcia DPM Work Phone: noms [facility] PODIATRYStart: 09-11-2024 End: 45-60-0580Wxtozbh encounter procedureMary Anne Garcia DPM Work Phone: noms WWW PODIATRYComment on above:Diabetic polyneuropathy associated with type 2 diabetes mellitus ([facility]/HCC) (Primary Dx); OnychomycosisStart: 09-11-2024 End: 41-29-2510xxlemldywxJLOHUAHZFDN J BOHACHNot AvailableStart: 08-11-2024 End: 02-11-6317jkivzwywszXuypdcr P COOKFacility:FTMCStart: 08-11-2024 End: 36-57-2237Rtdqfaf encounter procedureFreddy KRAUS [facility] Start: 06-22-2024 End: 40-99-5801aluqgednvmECOJXFTJoe De Luna [facility] HospitalStart: 06-22-2024 End: 52-73-6074Cmmbmpwzio hospital visit by Lilly Arevalo DO Work Phone: [facility] Non-Invasive CardiologyComment on above:Chest pain, unspecified type; Shortness of breathArrivedStart: 06-08-2024 End: 47-22-5749uswttowaesJzeiyxtuzTogus VA Medical Center Work Phone: Start: 06-08-2024 End: 90-31-8596Xvolfdv encounter procedureClairchesapeake regional [facility] center Physician GroupFormerly [facility] Work Phone: Start: 06-02-2024 End: 48-71-6099vswhulrkcdNVYMRTico Carrasco [facility] Centertart: 06-02-2024 End: 86-03-4551Uwgpdsaddb hospital visit by Amanda Aguayo MD Work Phone: [facility] Non-Invasive CardiologyComment on above:Sinus bradycardia; Sinus pauseStart: 06-02-2024 End: 83-27-4394kvsvsoejsuSLVRITico Carrasco [facility] Centertart: 06-02-2024 End: 94-62-7023Quyaqrbrkf hospital visit by Amanda Aguayo MD Work Phone: mwhz EndoscopyComment on above:Sinus bradycardia (Primary Dx); Sinus pauseStart: 05-22-2024 End: 72-91-4041gwmwpfylchIAWKN L [facility] Hospitaltart: 05-22-2024 End: 35-17-9224Avotgfubxt hospital visit by physicianSuzanne Garcia MD Work Phone: [facility] MammographyComment on above: Encounter for screening mammogram for malignant neoplasm of breastStart: 05-11-2024 End: 18-16-4881dwicktopjvFHSJB [facility] Centertart: 05-11-2024 [facility] Start: 05-11-2024 End: 69-22-9083Xevpfmj encounter statusSuzanne Garcia MD Work Phone: bon [facility]Start: 05-11-2024 End: 26-60-5514Siivyiptto hospital visit by Pineda Garcia MD Work Phone: mwhz RESPIRATORY THERAPYComment on above:Pre-op testingStart: 04-11-2024 End: 15-34-8878Rbsmdq flowsheetBenjamin W Murcek DO Work Phone: noms ENT SANDUSKYStart: 04-11-2024 End: 16-81-8364Rncenx flowsheetBenjamin W Murcek DO Work Phone: noms ENT SANDUSKYStart: 04-11-2024 End: 31-63-2183Qcvfza outpatient visit 25 minutesBenjamin W Murcek DO Work Phone: noms ENT SANDUSKYComment on above:Acute laryngitis (Primary Dx)Start: 04-11-2024 End: 65-76-4034ejbchloplwEUOALQLN W MURCEKNot AvailableStart: 03-20-2024 End: 97-03-3814Yvssmv outpatient visit 25 minutesBenjamin W Murcek DO Work Phone: noms ENT SANDUSKYComment on above:Acute laryngitis (Primary Dx)Start: 03-20-2024 End: 10-78-4082Cjpwva flowsheetBenjamin W Murcek DO Work Phone: noms ENT SANDUSKYStart: 03-20-2024 End: 03-58-6400Qtcraj flowsheetBenjamin W Murcek DO Work Phone: noms ENT SANDUSKYStart: 03-09-2024 End: 27-43-7906zybtjqqcoyNonrxxeybDetwiler Memorial Hospital Work Phone: Start: 03-09-2024 End: 38-84-2341Wibrfsh encounter procedureFirelands Physician Group-[facility] Work Phone: Start: 12-09-2023 End: 12-76-5881uetbnbodnsVndrbjzaeTogus VA Medical Center Work Phone: Start: 12-09-2023 End: 21-20-7357Eciscci encounter procedureFirelands Physician Group-[facility] Work Phone: Start: 09-30-2023 End: 01-30-9887Rdojaoh encounter procedureFirelands Physician Group-[facility] Work Phone: Start: 07-33-8374Zrjybh flowsheetMary Anne Garcia DPM Work Phone: noms WWW PODIATRYStart: 98-12-9454Znnhkf flowsheet Mary Anne Garcia DPM Work Phone: noms WWW PODIATRYStart: 07-13-2023 End: 07-45-1512Gapzmq outpatient visit 15 minutesChgina Garcia DPM Work Phone: noms WWW PODIATRYComment on above:Diabetic polyneuropathy associated with type 2 diabetes mellitus (CMS/HCC) (Primary Dx); Hammer toes of both feetStart: 07-05-2023 End: 56-54-4488Kpnyxjf encounter procedureFreddy KRAUS [facility] Start: 09-07-2022 End: 04-03-0956ciufmxqkftDckkr Chaban Other noAdd[facility] [employer] Other Start: 05-56-0687Mbbgez outpatient visit 25 minutes German MirandaFPG Pulmonary DiseaseStart: 07-08-2022 End: 72-11-5871Inwmznrmoj hospital visit by physicianKinga Faustin [facility] Physical TherapyStart: 07-08-2022 End: 95-07-3458mfpfzqlmurWP CHIKI HAYFacility:R8Glhxr: 05-19-2022 End: 17-36-7745Uhnsfoezea hospital visit by physicianH[facility] MammographyComment on above:Encounter for screening mammogram for malignant neoplasm of breastStart: 05-05-2022 End: 35-08-4226uqrmevehotMmbugncgm Breault Other noAdd[facility] [employer] Other Start: 60-28-1820Uxrqjm outpatient visit 25 minutes Charline WilburnFPG Urgent Care ClydeStart: 04-13-2022 End: 97-03-4457Rqvfzfi encounter procedureFreddy KRAUS [facility] Start: 09-28-2021 End: 42-89-0305rdrcetrextRzfds Keller Other noAdd[facility] [employer] Other Start: 31-45-9174Tqxsuc outpatient visit 15 minutes Anais FarleyFPAllie Urgent Care ClydeStart: 09-27-2021 End: 33-74-2258bmccanuhyiOI SUZANNE KIMFFFacility:O3Mxnus: 09-25-2021 End: 11-72-7151ieowdqtggtPcqyxxpfbbu Dustin Other [employer] Other Start: 54-74-4359Dnuqboxyz encounterChristopher AvendanoFPG Pulmonary DiseaseStart: 09-06-2021 End: 94-57-8045ohwrgwqdiuAsieshopq Cosmo Other noAddiction [facility] [employer] Other Start: 13-08-4611Chzxqj outpatient visit 15 minutes Charline OliviaaultFPG Urgent Care ClydeStart: 08-12-2021 End: 98-52-8271wclrthsykuRiusg Chaban Other [employer] Other Start: 48-29-2055Sllfkd outpatient visit 15 minutes Kamal ChabanFPG Pulmonary DiseaseStart: 04-03-2020 End: 64-13-9445Qivyojyzcg hospital visit by [facility] MammographyComment on above:Visit for screening mammogramStart: 03-21-2020 End: 66-69-6879Pmlzbcrwkq hospital visit by Pineda Siegel LaboratoryStart: 11-02-2019 End: 21-35-8624Pzbyojqsme hospital visit by Pineda Siegel LaboratoryComment on above:HypercalcemiaStart: 10-10-2019 End: 62-50-8581Madgernuwy hospital visit by Pineda Siegel LaboratoryComment on above:Essential hypertension, benign; Type 2 diabetes mellitus without complication, without long-term current use of insulin (HCC); Pure hypercholesterolemiaStart: 03-14-2019 End: 64-92-6368Jlmilbuvoh hospital visit by Pineda Siegel LaboratoryComment on above:Metallic taste; Disturbance of smell and tasteStart: 02-15-2019 End: 21-11-4334Dupxcdjdtj hospital visit by [facility] Mammography [facility] LaboratoryComment on above:Encounter for screening mammogram for breast cancer Start: 61-02-9263Zzlzdgq encounter procedurePHYSICIAN [facility] Procedures DateProcedureProcedure DetailPerforming ClinicianStart: 99-11-1446Lfeizpipmgfwg metabolic panelSuzanne Garcia MD Work Phone: start: 26-69-0685Tqvcv panelSuzanne Garcia MD Work Phone: start: 55-03-7522Epzsi albumin quantitativeSuzanne Garcia MD Work Phone: start: 64-36-6646Kjlhjlvmou spect multiple studies Kraig Praterpeña DO Work Phone: Start: 68-17-4135Tbeeg metabolic panel calcium total Carlos Aguayo MD Work Phone: start: 33-79-6871Zxr routine ecg w/least 12 lds w/i&r Carlos Aguayo MD Work Phone: start: 44-38-3810FtfdnekqzztYqcag Back MD Work Phone: start: 05-22-2024 End: 51-82-0634Ruergdqqe mammography bi 2-view breast inc Dain Garcia MD Work Phone: start: 24-38-4404Mcj routine ecg w/least 12 lds w/i&r Carlos Aguayo MD Work Phone: start: 58-11-6973VhmuxoibwhyJnlcnroyibs Bohach DPM Work Phone: Start: 13-19-8875Ollmnywie mammography bi 2-view breast inc Dain Garcia MD Work Phone: start: 24-34-4374TzpdzfyafoHhtwgtp COOK Start: 05-18-6704Pljgyyfzp mammography bi 2-view breast inc Dain Garcia Work Phone: start: 90-08-0450Usytwaekhv, device (physical object) Freddy KRAUS Start: 60-15-2665Xponweo serum plasma/whole bloodSuzanne Garcia Work Phone: start: 93-68-8200Wkiwrds totalSuzanne Garcia Work Phone: start: 25-24-2817Xfhhkythmidul metabolic panelSuzanne Garcia Work Phone: start: 52-26-4849Ewlpq panelSuzanne Garcia Work Phone: start: 78-46-6690URAHEVG FASTING?Suzanne Garcia Work Phone: start: 49-72-8446Tutfm count complete auto&auto difrntl wbcMatthew A Clingman Work Phone: Start: 41-94-7624Vkhwkvezw mammography bi 2-view breast inc cadSuzanne Garcia Work Phone: start: 17-00-9621BlxcyoffemMsnmysf NAYANA Start: 63-67-8380VppfmaevtzUieemil NAYANA Start: 62-97-1030RkhnidihggRxlkkxj COOK Start: 85-93-3309QboxniawgxKlqaxqh COOK Start: 07-03-3391JsixzdxtqujAdc RoomStart: 05-08-2013 CystoscopyGregory COOK Start: 83-77-4215UupvaxhfclWoasxyd COOK Start: 65-48-9716YlhvfbbfuaJqnoofc COOK Start: 99-94-0661AtaumqicagSxqmrvl COOK Start: 56-72-1591ZyvmgcngbfZhvafsq COOK Start: 92-03-4528CcohymbjzveZvbfrtridzx Radha DPM Work Phone: Start: 14-66-6667YechbtsybqkNubnsmc COOK BREAST BIOPSY X2 LEFT BREASTFredyd KRAUS D&C S7BugdiagFreddy KRAUS MASS REMOVAL RIGHT EARFreddy KRAUS NECK MASS REMOVALFreddy KRAUS Plan of Treatment DateCare ActivityDetailAuthorStart: 28-01-2865Nzliwqojh for malignant neoplasm of colonBon [facility] CampusAirPOSStart: 25-23-9272QBU test (Diabetes, CKD 3-4, OR last GFR 15-59)GFR test (Diabetes, CKD 3-4, OR last GFR 15-59)[facility] PulaskiAirPOSart: 97-80-1850Pbzensnhll A1c flriqkdkspoW8A test (Diabetic or Prediabetic)[facility] PulaskiAirPOSart: 69-22-3637Dxjrx panelLipidsBon [facility] CampusPersonal Web Systems [facility] AkronStart: 69-83-4840Lavgm screening for proteinDiabetic Alb to Cr ratio (uACR) testBon [facility] CampusAirPOSart: 09-11-2025 End: 48-16-1955Yxvkyhh encounter procedureNOMS WWW PODIATRYStart: 07-24-2025 Depression ScreenDepression ScreenBon [facility] CampusPersonal Web Systems [facility] AkronStart: 06-06-2025 Glaucoma screeningDiabetic retinal examBon [facility] CampusAirPOSStart: 06-02-2025 GFR test (Diabetes, CKD 3-4, OR last GFR 15-59)GFR test (Diabetes, CKD 3-4, OR last GFR 15-59)[facility] PulaskiAirPOSStart: 06-88-7265Kthskehpg for malignant neoplasm of breastBon [facility] CampusAirPOSart: 71-31-6220Prupca Wellness Visit (Medicare)Annual Wellness Visit (Medicare)[facility] PulaskiAirPOSart: 69-31-2007Diedzoydlf ScreenDepression ScreenLewisgale Hospital PulaskiPersonal Web Systems [facility] Hospitalart: 04-03-2025 End: 62-51-5220Vbhpyvb encounter jtagmepef25/04/2025 11:00 AM EST Office Visit [facility] [facility] [address] [place] [address] Mary Anne Garcia, DPMichael [address] [place] [address] ArrivedNOFayette Medical Centerard PodiatryComment on above:Arrived Start: 95-71-0752HWKYQ-19 Vaccine ( season)COVID-19 Vaccine ( season)[facility] HealthcareStart: 00-18-6230Nwwxtkeyp vaccinationInfluenza Vaccine (#1)[facility] HealthcareStart: 01-15-2025 End: 92-77-1665Krxoxwb encounter pfoxjdxnw47/18/2025 10:30 AM EDT Office Visit [facility] [address] [place] [phone] Kraig Arevalo DO [address] [place] [address] 6 month f/uMercy [facility] Comment on above:6 month f/uStart: 10-24-2024 End: 24-04-9588Rtiolcv encounter ruupsdgck62/27/2025 10:00 AM EDT Office Visit [facility] [address] [place] [phone] Suzanne Garcia MD [address] [place] [address] DM, HTN, Hyperlipidemia.[facility] – ADAComment on above:DM, HTN, Hyperlipidemia.Start: 10-17-2024 End: 38-95-1002Wkztsev encounter pdgnnichs07/20/2025 9:30 AM EDT Office Visit [facility] [employer] [address] [facility] [place] [id number] Kraig Arevalo DO [address] [place] [address] 4 month f/uMercy [facility] Comment on above:4 month f/uStart: 57-37-2215Qqoqqdft foot examinationDiabetic foot examBon [facility] HospitalStart: 60-81-4173OCP test (Diabetes, CKD 3-4, OR last GFR 15-59)GFR test (Diabetes, CKD 3-4, OR last GFR 15-59)[facility] HospitalStart: 12-05-7268Rlpso panelLipidsBon [facility] HospitalStart: 84-96-4147Tydcs screening for proteinDiabetic Alb to Cr ratio (uACR) testBon [facility] HospitalStart: 09-11-2024 End: 04-89-3643Nmkuuyc encounter krpgwaeuz89/14/2025 1:45 PM EDT Procedure Visit [facility] [address] [place] [phone] Mary Anne Garcia DPM [address] [place] [address] ArrivedNOMS WWW PODIATRYComment on above:ArrivedStart: 04-07-4968Nuywwjfkqf A1c srnwtrcmuceE1A test (Diabetic or Prediabetic)[facility]Start: 07-13-2024 End: 67-65-1717Rnkpfud encounter zkuixuijc93/13/2025 9:00 AM EST Office Visit [facility] [address] [place] [phone] Suzanne Garcia MD [address] [place] [address] 3 months (around 07/13/2024) for DM, HTN, HyperlipidemiaMERBRIGHAM CITY COMMUNITY HOSPITALComment on above:3 months (around 07/13/2024) for DM, HTN, HyperlipidemiaStart: 06-02-2024 End: 61-28-4376Mlrtnoje cardiac holter monitor (3 days-14 day)[facility] HospitalComment on above:Expected: 06/02/2024, Expires: Occurrences starting 06/02/2024 until 06/02/2024Start: 06-02-2024 End: 84-70-9977Chpllusok to same day surgery lprsks6006/02/2024 7:30 AM EST - 06/02/2024 7:59 AM EST Surgery [facility] [address] [place] [address] Carlos Aguayo MD [address] [place] [address] COLONOSCOPYMWHZ EndoscopyComment on above:COLONOSCOPYStart: 41-35-9938Dhyrdutwix hospital visit by physician 06/02/2024 7:30 AM EST Hospital Encounter [facility] [address] [place] [address] Carlos Aguayo MD [address] [place] [address] [facility] EndoscopyStart: 06-02-2024 End: 78-02-6434Chizvufgimb flx dx w/collj spec when pfrmdMWHZ ENDOSCOPYStart: 87-91-6544Mdfebkwpz for malignant neoplasm of breastNOMS HealthcareStart: 84-56-9659Nkwsnbimo for malignant neoplasm of breastBreast cancer [facility] HealthcareStart: 04-11-2024 End: 76-61-3609Blegjpf encounter akbzcqslf50/12/2024 10:00 AM EST Office Visit [facility] [place] [address] [place] [address] Neftaly Mcmanus, DO [address] [place] [address] [facility] E[facility] CANDELARIOUSKYStart: 03-20-2024 End: 32-05-9134Voardwx encounter cyvklqhau84/21/2024 3:30 PM EDT Office Visit [facility] [place] [address] [place] [phone] Neftaly Mcmanus, DO [address] [place] [address] ArrivedNOMS ENT SANDUSKYComment on above:ArrivedStart: 30-27-4749EHSND-19 Vaccine ( season)COVID-19 Vaccine ( season)[facility] HospitalStart: 16-11-4254YILHV-19 Vaccine ()COVID-19 Vaccine ()Bon [facility] HospitalStart: 12-91-4627Gvgjxcbvf vaccinationInfluenza Vaccine (#1)[facility] HealthcareStart: 07-13-2023 End: 49-46-9914Hihfikc encounter ejyaiowzr30/13/2024 9:45 AM EST Office Visit [facility] [address] [place] [id number] Mary Anne Garcia, DPMichael [address] [place] [address] ArrivedNOMS WWW PODIATRYComment on above:ArrivedStart: 26-47-9327Nnvlqamung ScreenDepression ScreenRiverside [facility]: 59-48-8124Zerhv cancer screen colonoscopyColon cancer screen colonoscopyHixson, [place]Start: 35-62-1040Yihzyqlkg for malignant neoplasm of colonRiverside Shore [facility]: 10-61-8663Rwydjggq screeningDiabetic retinal examRiverside Shore Memorial Hospital: 75-82-8526Vtgrepmn foot examinationDiabetic foot exam [facility]: 07-87-3938Ebsmccwexb A1c memcvdxfdwnP8Z test (Diabetic or Prediabetic)[facility]: 85-42-9591Vwzejeqj cancer screenCervical cancer screenHixson, [place]Start: 04-12-2023 Screening for malignant neoplasm of cervixCervical cancer [facility]: 86-90-4062Ayiqdeziyn ScreenDepression ScreenRiverside [facility]: 10-13-2022 End: 49-08-9291Fibbfkp encounter bjiujglti59/16/2023 Office Visit Family Medicine Suzanne Garcia MD [address] [place] [address] [facility] WILLARDStart: 34-43-4872Uoqsgp Wellness Visit (AWV)Annual Wellness Visit (AWV)[facility]: 62-18-4364Ihnbcucn retinal examDiabetic retinal examBON [facility] Start: 52-37-0561Heyqlptosizt 50+ years Vaccine (2 of 2 - PCV)Pneumococcal 50+ years Vaccine (2 of 2 - PCV)[facility]: [facility]22 Pneumococcal 65+ years Vaccine (2 of 2 - PCV)Pneumococcal 65+ years Vaccine (2 of 2 - PCV)[facility]: 12-48-8445Rennyicxpmly Vaccine: 65+ Years (2 - PCV)Pneumococcal Vaccine: 65+ Years (2 - PCV)[facility]Start: 92-07-1938Ppcdndtwvxbu Vaccine: 65+ Years (2 of 2 - PCV)Pneumococcal Vaccine: 65+ Years (2 of 2 - PCV)[facility]Start: 04-03-4919Yhrye screening for proteinBON [facility]: 80-91-2914Fofoawcho for malignant neoplasm of breastBreast cancer [facility]: 90-67-5998PHG test (Diabetes, CKD 3-4, OR last GFR 15-59)GFR test (Diabetes, CKD 3-4, OR last GFR 15-59)[facility]: 51-20-5763Lhyek panelLipidsBON [facility]: 73-69-9943ASORD-19 Vaccine (3 - Booster for Patricia series) COVID-19 Vaccine (3 - Booster for Patricia series)[facility]: 82-34-0387Ydjasf cancer screenBreast cancer [facility]: 53-15-2540Cckwzxarc for malignant neoplasm of breastBreast cancer [facility]: 88-07-5956Cxlntfkzlp measurementCreatinine [facility]: 31-80-7505QpC7g (Bld) [Mass fraction]A1C test (Diabetic or Prediabetic)[facility], [place]Start: 54-94-7061Ztjvd panelLipid screenBlanchard [facility], [place]Start: 20-45-7465Dqefsukpe monitoringPotassium monitoringBlanchard [facility], [place]Start: 03-95-9095Ugukjkif retinal examDiabetic retinal examBlanchard [facility], [place]Start: 46-72-5920Rwuoelap microalbuminuria testDiabetic microalbuminuria testBlanchard [facility], [place]Start: 26-89-7468MqZ1k (Bld) [Mass fraction]A1C test (Diabetic or Prediabetic)[facility], [facility]: 04-10-2020 End: 50-54-7892Mhtvpu Visit04/10/2020 Office Visit Family Medicine AsadSuzanne griffin MD [address] [phone] [facility] WILLARDStart: 15-98-5060Uzdaawpsg vaccinationFlu vaccine (#1)[facility], [place]Start: 72-07-0878Iinvpr cancer screenBreast cancer screenBlanchard [facility], [place]Start: 10-05-2019[object Object]Diabetic foot exam [facility], [place]Start: 13-65-9563U9X test (Diabetic or Prediabetic)A1C test (Diabetic or Prediabetic)[facility], [facility]art: 35-34-6043Zinecwpc foot examinationDiabetic foot examBlanchard [facility], [place]Start: 27-18-7958Fesegkts retinal examDiabetic retinal examBlanchard [facility], [place]Start: 06-12-9505Ssvnqhauvt measurementCreatinine [facility], [place]Start: 60-41-6188Txhwctkxvm monitoringCreatinine [facility], [place]Start: 62-61-0872Vwhrv panel Lipid screenBlanchard [facility], [place]Start: 50-80-8644Xmidp screenLipid screenBlanchard [facility], [place]Start: 70-43-6920Jgxkyivwt monitoringPotassium monitoringBlanchard [facility], [place]Start: 04-11-2019 End: 69-32-5741Frgzen Visit04/11/2019 Office Visit Family Medicine Suzanne Garcia MD [address] [phone] [facility] WILLARDStart: 08-00-8591Hzqbjhzid vaccinationFlu vaccine (#1)[facility]: 55-10-5188Prhchump microalbuminuria testDiabetic microalbuminuria testMemorial Health System [facility]: 26-42-6520Cktpvbyuo for malignant neoplasm of colonNOMS HealthcareStart: 43-05-2170Mutdrmednvm Syncytial Virus (RSV) or age 60 yrs+ (1 - Risk 60-74 years 1-dose series) Respiratory Syncytial Virus (RSV) or age 60 yrs+ (1 - Risk 60-74 years 1-dose series)[facility]: 80-76-7406Iecykhff Vaccine (1 of 2) Shingles Vaccine (1 of 2)[facility]: 99-29-9572Jvonhqzzc for malignant neoplasm of colonR[facility]ide [facility]: 99-86-0561CTnB/Tdap/Td vaccine (1 - Tdap)DTaP/Tdap/Td vaccine (1 - Tdap)[facility]: 30-35-3749Yrzrszpqo C screeningHepatitis C screenBON [facility]: 58-63-1457TOO screenHIV [facility]art: 86-67-5687BRF screening HIV screenUniversity Hospitals Geneva Medical Centerart: 96-80-0196Brimgmgyxaok 0-64 years Vaccine (1 of 1 - PPSV23)Pneumococcal 0-64 years Vaccine (1 of 1 - PPSV23)[facility]: 91-79-2398Rphdwjuxv C screenHepatitis C [place], [place] Start: 53-89-0482Gpmemvdyw C screeningHepatitis C [place], [place] Start: 6511Djdjobvbx for malignant neoplasm of colonNOMS Healthcare End: 26-72-5226Rmwzcfcu, Non-GynCytology, Non-Senior Investment Analyst Lab Routine Once for 1 Occurrences starting 02/15/2019 until 02/15/2019[facility], KELSEYComment on above:Once for 1 Occurrences starting 02/15/2019 until 02/15/2019Cytology, Non-GynCytology, Non-Senior Investment Analyst Lab Routine 02/15/2019 1:54 PM [facility], [place] End: 18-78-5142Dkne (TTE) complete (PRN contrast/bubble/strain/3D)Bon [facility] Medical CenterRunfacesComment on above:1 Occurrences starting 06/22/2024 until 06/22/2024 EKG 12 LeadEKG 12 Lead ECG Routine Pre-op testing 05/11/2024 1:52 PM ESTBon [facility] CenterRunfacesEKG 12 LeadEKG 12 Lead ECG STAT 06/02/2024 7:59 AM [facility] End: 99-12-7756Cutvg Metals Screen, UrineHeavy Metals Screen, Urine Lab Routine Once for 1 Occurrences starting 03/14/2019 until 03/14/2019[facility] HospitalKELSEY Comment on above:Once for 1 Occurrences starting 03/14/2019 until 03/14/2019 Heavy Metals Screen, UrineHeavy Metals Screen, Urine Lab Routine 03/14/2019 7:38 AM [facility], KELSEYIgA [Mass/volume] in Serum or [facility] MemorialIgE [Units/volume] in Serum or [facility] MemorialIgG [Mass/volume] in Serum or [facility] MemorialIgM [Mass/volume] in Serum or [facility] End: 06-92-4599TZW, IntactPTH, Intact Lab Routine Hypercalcemia 1 Occurrences starting 11/02/2019 until 11/02/2019[facility], KELSEYComment on above:1 Occurrences starting 11/02/2019 until 11/02/2019PTH, IntactPTH, Intact Lab Routine Hypercalcemia 11/02/2019 5:17 PM [facility] NYSerologic test for AspergillusH[facility] Immunizations Immunization DateImmunizationNotesCare GjuixfmnNhrfejbd39-12-3871qlfbjjisc, injectable, madin maricruz canine kidney, preservative Tereso Garcia MD Work Phone: BWellmont Lonesome Pine Mt. View HospitalGyofdg43-39-3132fysedqiac virus vaccine, unspecified formulationChristopher Bohach DPM Work Phone: [facility] HospitalFmcvasvdwa60-87-4784Yfgjzabqw, injectable, Madin Maricruz Canine Kidney, preservative free, quadrivalentChristopher Bohach DPM Work Phone: NOBarton County Memorial HospitalTzpxcbrhir93-73-9565olbnutxie virus vaccine, unspecified formulationBengenna Mcmanus DO Work Phone: NOBarton County Memorial HospitalHdfdcnzwhf96-98-6315Btbwvdcxc, FLUAD, (age 65 y+), Adjuvanted, 0.5mLMwh [facility] Work Phone: [phone]-11 Vaccine Pfizer - Documentation Purposes OnlySloop Memorial Hospital Other adjust Other 11274528-57-4083Ihjlkaygt, FLUAD, (age 65 y+), Adjuvanted, 0.5mLMwh [facility] Work Phone: [phone]jzwwkoes polysaccharide vaccine, 23 valentMwh [facility] Work Phone: [phone]-62 Vaccine [facility] - Documentation Purposes OnlySloop Memorial Hospital Other [facility] [address] 900671-11-2020influenza, injectable, quadrivalent, preservative freePrairie St. [facility]'s [facility]iatric [facility]11-12-2019influenza virus vaccine, unspecified formulationAshtabula County Medical Center11-12-2019influenza, high dose seasonal, preservative-freeWomen & Infants Hospital Of Rhode Islanddali Other adjust Other [id number], injectable, quadrivalent, preservative freePinson, [place]11-13-2018influenza virus vaccine, unspecified formulationAshtabula County Medical Center11-13-2018 influenza, high dose seasonal, preservative-freeGerman Miranda Other [facility]fre[facility] [place] [employer] Other [id number], injectable, quadrivalent, preservative freeNancy [facility] Payers DatePayer CategoryPayerPolicy [id number] Health Insurance [id number] 2023Medicare [id number] NRECA R xxxxxxxxxxxx 2017-Present [address] [place] [address]tchggnyvhbhy [id number] [id number] 1960 Private Health [id number] 2..840.1.457347.3.57[id number] 2..840.1.759918.3.57[id number] 2..840.1.164218.3.57[id number] 2..840.1.495229.3.57[id number] 2..840.1.466005.3.57[id number] 2.16.840.1.140524.3.57[id number] 2.16.840.1.075503.3.579.[id number] 2.16.840.1.299659.3.57[id number] 2.16.840.1.195502.3.579.[id number] 2.16.840.1.905838.3.57[id number] 2.16.840.1.746702.3.57[id number] 2.16.840.1.632952.3.57[id number] 2.16.840.1.187760.3.57[id number] 2.16.840.1.234466.3.57[id number] 2..840.1.725563.3.579.2.[id number] 2..840.1.022994.3.579.2.1259Self-paySelf Pay [id number] Social History DateTypeDetailFacilityStart: 03-14-2019 End: 22-50-9901Bkeulrv smoking status NHISNever smokerCleveland Clinic Mentor Hospitaltart: 03-14-2019 End: 76-70-8529Rcfuebr intakeNoCleveland Clinic Mentor Hospitaltart: 16-76-2895Yzj Assigned At BirthNot on [facility] Hospitalart: 10-10-2019 End: 27-03-8057Lyvztmo intakeCurrent non-drinker of alcohol (finding)[place], [place]Exposure to SARS-CoV-2 (event)Unable to assessBlanchard Valley Health System [facility], [place] Start: 10-10-2019 End: 19-60-4935Mbzrjwo use and exposureNever usedBlanchard Valley Health System [facility], KYStart: 61-93-8320Lzfsnnc smoking statusNeverCleveland Clinic Mentor Hospitaltart: 98-93-7513Dzdwkdv SDOH Errfebmlm6BPT Staff Ranker Work Phone: start: 04-14-2022 End: 21-15-2531Wnmmwye SDOH Food Qpksi7QAZ Staff Ranker Work Phone: start: 74-61-6306Omnalpo SDOH Dtjfiemuy8VOD Staff Ranker Work Phone: start: 24-76-4511Jvnpgxn SDOH Transport Non-Vrr8MUB Staff Ranker Work Phone: Tobacco smoking status NHISTobacco smoking consumption unknownNOMS HealthcareStart: 07-13-2023 End: 32-28-6960Ogsfhzr intakeLifetime non-drinker (finding)[facility] HealthcareStart: 07-13-2023 End: 83-25-8243Kgtkjjc of Social functionNOND HealthcareStart: 49-29-7085Kxs Assigned [facility] HospitalHow often to you have a drink containing alcohol?NeverCarilion [facility] Popularo(I/We) worried whether (my/our) food would run out before (I/we) got money to buy more.Never trueStafford HospitalStart: 07-10-2012 End: 27-76-7229OewEywtzo (finding)[facility] Medical CenterHas the electric, gas, oil, or water company threatened to shut off services in your home in past 12MoNoBon [facility] HospitalStart: 77-59-2086Xszqzc identity Identifies as female gender (finding)[facility] HospitalStart: 10-02-2024 Sexual orientationHeterosexual (finding)[facility]ord HospitalNEGATED: Highlighted rowStart: NINFHistory of tobacco usePassive smokerStafford Hospital Functional Status CihpPgzggfpoweGxfustUcymwtyu44-22-7550Xdhybojcaq StatusN/AFisher [facility] Clinical Notes 08-12-2021 to 04-03-2025 Note Date & HwhmTcgzKordjfoi21-83-7320 History of Present illness Narrative* Mary Anne Garcia, JUNE - 04/03/2025 11:00 AM EST Images from the original note were not included. 'Subjective Patient ID: Kathryn Hargrove is a 70 y.o. female who presents for Toe Pain (RT 1st toe pain/black toenail). HPI Pt has pain in LT toe and toenail is black for about 2 wks. She got new work boots and a different brand and started wearing them about 3 wks ago. She has been walking more. She thinks the boots are the problem. Denies any injury. Pain is 3-7/10. She also has cold toes on RT foot. General: Chillsdenies. Feverdenies. Musculoskeletal: muscle weaknessdenies. Bone/joint [...] by mouth Daily, Disp: , Rfl: lisinopril 10 MG tablet, Take 1 tablet by [...] capsules by mouth Daily, Disp: , Rfl: predniSONE (Deltasone) 10 MG tablet, Take 10 mg by mouth Daily, Disp: , Rfl: VITAMIN D PO, Take by mouth, Disp: , Rfl: zinc gluconate 50 MG tablet, Take 50 mg by mouth Daily, Disp: , Rfl: Allergies Losartan and Montelukast Medical Histories Past Medical History: Diagnosis Date Allergic rhinitis Asthma (HCC) BMI 39.0-39.9,adult 03/17/2024 Cancer (HCC) GERD (gastroesophageal reflux disease) HTN (hypertension) Hyperlipidemia Mild intermittent asthma, uncomplicated (HCC) 03/17/2024 Obesity 03/17/2024 Peripheral eosinophilia 03/17/2024 Sleep [...] tibial: 3+ absent sharp sensation all toes into midfoot and 2 areas 5.07 monofilament Achilles reflex: [...] ankle ROM Nails: Digit 1 thick,yellow,crumbling 3mm 80% old hematoma Digit 2 thick,yellow,crumbling Digit 3t hick,yellow,crumbling 3mm Digit 4 normal Digit 5 normal Assessment/Plan DM neuropathy , increase, mycotic nails, hematoma left 1 from old shoes and currentshoes Neuropathy: sugar control emphasized and caution for wounds and regular inspections. any new problems with apptsugg. pain can b treated with topical or oral measures, many were offered. pain can b managed with topcial or oral methods and offered today Shoes reviewed and sizing needs improved 1/2 size Nails: all thick and dystrophic nails debrided of all affected and loose material documented in this encounterResearch Belton HospitalWsvoskqaua54-23-0581 History of Present illness Narrative* Mary Anne Garcia DPM - 09/11/2024 1:45 PM EDT Subjective Patient ID: Kathryn Hargrove is a 69 y.o. female who presents for Follow-up (Nailcare). HPI Diabetic/Routine Nail Care: Location: nails on bilateral feet. Severity of symptoms: mild numb/tingle. Onset:gradual. Status:no change. Context: hard to trim, hard to reach. NAILS-thickened, discolored, pain. Relieved by debridement, filing down nails, clipping nails. History of ulcers/wounds: no. PCP Dr. Garcia Date of Last visit 07-24-24 Aggravated by [...] Allergic rhinitis Asthma BMI 39.0-39.9,adult 03/17/2024 Cancer ([facility]/HCC) GERD (gastroesophageal reflux disease) HTN (hypertension) ([facility]) Hyperlipidemia (CMS/[facility]) Mild intermittent asthma, uncomplicated (CMS/HCC) 03/17/2024 Obesity [...] and regular inspections. any new problems with apptsugg. pain can b treated with topical or oral measures, many were offered. pain can b managed with topcial or oral methods and offered today Shoes reviewed and orthotics Nails: all thick and dystrophic nails debrided of all affected and loose material documented in this encounterResearch Belton HospitalQgdxjqwybt22-05-8084 Evaluation + Plan note Diagnostic Tests Pending * UroVysion Fish and Urine Cyto ([facility]) 08/11/24 [facility] [id number] Hospital Discharge instructions Patient Education 08/11/2024 10:59:15 [...] Up Care 06/19/2024 13:39:30 With:Freddy KRAUS [address] [place] [phone]- Business (1) When: Unknown Comments:Your bladder showed no abnormalities! Will plan on repeat bladder scope in about one year.Have a great day! [facility] 03-14-2025 NotePatient Education Cystoscopy ??? Voiding after the procedure: [...] if you have a fever over 100 degrees.[facility] 06-22-2024 History of Present illness Narrative* Brenda Potter RN - 06/22/2024 10:24 AM EST Pt malcom procedure well, snack and beverage provided. documented in this encounterBon [facility] Hospital01-03-2025 History of Present illness Narrative* Lianet Baird RCP - 06/02/2024 9:15 AM EST The patient was educated on the use of a epatch monitor. The patient's comprehension was high. The patient was able to verbalize recall. The patient was instructed on how and when to return the monitor. documented in this encounterBon [facility] Hospital01-03-2025 History of Present illness Narrative* Alexander Zazueta RN - 06/02/2024 9:08 AM EST Discharge Criteria Outpatients must meet criteria 1 [...] require patient to operate motor Vehicle. Yes * Alexander Zazueta RN - 06/02/2024 9:[address] Aguayo called per short story writer- notified of lab results. Dr. Aguayo states he is aware, patient continuesto be normal sinus rhythm on monitor and free of pauses since being in phase II recovery. Dr. Aguayo states we are good to put the nurse monitoring on her and discharge her home. Alexander Zazueta RN 06/02/2024 0902 * Tess Bowen RN - 05/25/2024 11:47 AM EST [facility] Preadmission Testing Name: Kathryn Hargrove : 1955 Patient (home) Procedure: Colonoscopy Date [...] [x] Ride Home [x] No Jewelry/Contact Lenses/Nail Israeli [x] Prep/Lax/Clear Liquids [] Chlorhexidene DOS Patient Needs [] HCG [x] Blood Sugar [] PT/INR [] T&S Do you have any metal allergies? [] Yes [] No If yes, to what metals: Patient instructed on the pre-operative, intra-operative, and post-operative process? Yes Medication instructions reviewed with patient? Yes documented in this encounterStafford Hospital01-03-2025 Hospital Discharge instructions* Discharge Instructions* Carlos Aguayo MD - 06/02/2024 7:37 AM EST Discharge Instructions Admission Date: 06/02/2024 Discharge Date: 06/02/24 Disposition: Home Activity: As tolerated Diet: Diabetic Discharge Instructions: Resume previous home medication. Follow Up: With your primary care physician (Dr. Garcia) in 2 weeks. documented in this encounterStafford Hospital11-12-2024 History of Present illness Narrative* Neftaly Patricia [place], - 04/11/2024 10:00 AM EST Subjective Patient ID: HPI Patient presents today [...] ulceration or mass. Normal bilateral true vocal foldmotion is present. Bilateral piriform sinuses and base [...] her back as needed documented in this encounterResearch Belton HospitalXlgmejvkwo64-87-4655 History of Present illness Narrative* Neftaly Mcmanus DO - 03/20/2024 3:30 PM EDT Subjective Patient ID: HPI Patient presents today with about a month history of significant cough and hoarseness. She says hervoice is a little better today than it has been. When this all started she completely lost her voice. 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 I have not seen her since. Was prescribed numberof medications for the cough that do not [...] ulceration or mass. Normal bilateral true vocal foldmotion is present. Bilateral piriform sinuses and base [...] a couple of weeks. documented in this encounterResearch Belton HospitalPpohsvjikr33-55-1276 History of Present illness Narrative* TAMARA MatiasM - 07/13/2023 9:45 AM EST Subjective Patient ID: Kathryn Hargrove is a 68 y.o. female who presents [...] 2 TABLETS BY MOUTH EVERY DAY WITH BREAKFAST,Disp: , Rfl: metoprolol succinate XL (Toprol-XL) 25 [...] and regular inspections. any new problems with apptsugg. pain can b treated with topical or oral measures, many were offered. pain can b managed with topcial or oral methods and offered today Hammertoe: deformed toes reviewed with risk of ulceration and infection. shoe changes reviewed including rx shoes. extra depth needed and will use pads until shoe fit improved.. surgical correction also reviewed Shoes reviewed and orthotics * Adrianna Garcia - 07/13/2023 9:[address] Garcia DLS 07/08/2023 documented in this encounterResearch Belton HospitalKbdkeudeek82-87-1447 Hospital Discharge instructions Patient Education 07/05/2023 16:14:38 [...] Up Care 06/02/2023 13:34:18 With:Freddy KRAUS Address: [address] [phone]- Business (1) When: Unknown Comments:As we discussed, your bladder looks good. Evidence of prior scars. The plan will be for a repeat scope in about 1 year provided the FISH test is negative.Please finish your antibiotic.Have a great day. [facility]02-05-2024 Evaluation + Plan note Diagnostic Tests Pending * UroVysion Fish and Urine Cyto ([facility]) 07/05/23 [facility]04-10-2023 Evaluation note* Encounter Date Diagnosis Assessment Notes Treatment Notes Treatment Clinical Notes Aug, Cough variant asthma (ICD-10 - J 45.991) Aug,astro-esophageal reflux disease without esophagitis (ICD-10 - K21.9) Aug,Seasonal allergic rhinitis due to pollen (ICD-10 - J30.1) Aug,Obstructive sleep apnea (ICD-10 - G47.33) adjust Other 02-08-2023 History of Present illness Narrative* Marichuy Zazueta - 07/08/2022 2:00 PM EST Physical Therapy [facility] Date: 07/08/2022 Patient Name: Kathryn Hargrove : 1955 Pt Cancelled Appt due to Illness Marichuy Zazueta Date: 07/08/2022 documented in this encounterBON [facility] Work Phone: [phone] Evaluation note* Encounter Date Diagnosis Assessment Notes Treatment Notes Treatment Clinical Notes Apr, Cough (ICD-10 - R05.9) Apr,OVID-19 (ICD-10 - U07.1)Today you tested positive for the COVID virus. This mean you need to follow all CDC quarantine guidelines found at coronavirus.[place].gov. It is important to rest, increase fluids, and stay at home. Recommend contacting primary care provider and discussing best course of action if you have chronic health conditions. COVID POSITIVE education handout discharge instructions. given. Apr,Laryngitis (ICD-10 - J04.0)Symptoms of laryngitis is caused by viruses. Salt water gargles may help with discomfort. Take medications as directed. Cool mist humidifier, steaming up bathroom with shower may help with symptom relief. Follow up with primary care provider if no improvement of symptoms BLOOD GLUCOSE WILL BE INCREASED FROM STEROIDS - WATCH CARB INTAKE AND CONTACT PCP IF MEDICATION NEEDS TO BE ADJUSTED. adjust Other 11-14-2022 Hospital Discharge instructions Patient Education [...] Up Care 03/24/2022 10:01:15 With:Freddy KRAUS Address: [facility] [place] [facility] [address] [place] [address]- Business (1) When: Unknown Comments:The plan will be to repeat the scope in about 1 year. Please call for any development of blood or clots in the urine.Please finish your antibiotic. Have a great day! [facility]11-14-2022 Evaluation + Plan note Diagnostic Tests Pending * UroVysion Fish and Urine Cyto ([facility]) 04/13/22 [facility]05-01-2022 Evaluation note* Encounter Date Diagnosis Assessment [...] call PCP tomorrow to make follow up appointment.Immediate evaluation in ER for difficulty breathing, chest pain, increased shortness of breath, fevers > 103, signs of dehydration, or if any new or concerning symptoms arise. Patient verbalizes understanding and is agreeable with treatment plan September,ontact with and (suspected) exposure to other viral communicable diseases (ICD-10 - Z20.828) September,therAdditional time spent conducting pre-visit phone call, screening for symptoms, instructions on social distancing, application and removal of PPE, and cleaning of examination room, equipment and supplies was preformed. Patient education given for testing methodology and results. Patient care instructions given in writting by [facility] document adjust Other 04-09-2022 Evaluation note* Encounter Date Diagnosis Assessment Notes Treatment Notes Treatment Clinical Notes Aug, Cough (ICD-10 - R05.9) Aug,Mild intermittent asthma with acute exacerbation (ICD-10 - J45.21) Take medications as directed with food. Complete all doses of steroids. Use inhale at least 2-3 times per day for next 48 hours. Increase fluid intake. Follow up with primary care provider is recommended to discuss treatment plan changes to asthma. Seek emergency help if difficulty breathing develops Watch carb intake while taking steroids adjust Other 03-15-2022 Evaluation note* Encounter Date Diagnosis Assessment Notes Treatment Notes Treatment Clinical Notes Jul, Cough variant asthma (ICD-10 - J 45.991) adjust Other Evaluation noteNo InformationNort [place] [employer] Other Evaluation note* Diagnosis Encounter for screening mammogram for malignant neoplasm of breast Other screening mammogram documented in this encounter [facility] [employer] Phone: evaluation note* Diagnosis Diabetic polyneuropathy associated with type 2 diabetes mellitus (CMS/HCC)- Primary Hammer toes of both feet [facility] Diagnosis Onset Date Resolution Status Allergic rhinitis acuteAsthma exacerbation, mildacuteGERD (gastroesophageal reflux disease)acute ObesityacutePeripheral eosinophiliaacuteBMI 39.0-39.9,adultresolvedAllergic rhinitisacuteGERD (gastroesophageal reflux disease)acuteMild intermittent asthma, uncomplicatedacuteObesityacutePeripheral eosinophiliaacute [facility] Work Phone: Evaluation noteNo assessment information available [facility] Work Phone: Evaluation note* Diagnosis Acute laryngitis- Primary documented in this encounter [facility]* Diagnosis Acute laryngitis- Primary documented in this encounter [facility]* Diagnosis Pre-op testing Preoperative examination, unspecified Encounter for screening colonoscopy Special screening for malignant neoplasms, colon documented in this encounter [facility] note* Diagnosis Encounter for screening mammogram for malignant neoplasm of breast Other screening mammogram Encounter for screening colonoscopy Special screening for malignant neoplasms, colon documented in this encounter [facility] note* Diagnosis Sinus bradycardia- Primary Other specified cardiac dysrhythmias Sinus pause Other heart block documented in this encounter [facility] note* Diagnosis Sinus bradycardia Other specified cardiac dysrhythmias Sinus pause Other heart block documented in this encounter [facility] note* Diagnosis Onset Date Resolution Status Admit Date Allergic rhinitis acuteJanuary 2024 10:20amArrhythmiaacuteJanuary 2024 10:20amGERD (gastroesophageal reflux disease)acuteJanuary 2024 10:20amHypersomniaacute Candace 2024 10:20amMild intermittent asthma, uncomplicatedacuteJanuary 2024 10:20amModerate persistent asthma, uncomplicatedacuteJanuary 2024 10:20amObesityacuteJanuary 2024 10:20amOSA (obstructive sleep apnea)acute June 08, 2024 10:20amPeripheral eosinophiliaacuteJanuary 2024 10:20am Recurrent respiratory infectionacuteJanuary 2024 10:20am [facility] Work Phone: Evaluation note* Diagnosis Sinus bradycardia- Primary Other specified cardiac dysrhythmias Chest pain, unspecified type Shortness of breath Essential hypertension, benign Mixed hyperlipidemia Chest pain, unspecified type Shortness of breath documented in this encounter [facility] note* Diagnosis Sinus bradycardia- Primary Other specified cardiac dysrhythmias Chest pain, unspecified type Shortness of breath Essential hypertension, benign Mixed hyperlipidemia Chest pain, unspecified type Shortness of breath documented in this encounter [facility] note* Diagnosis Diabetic polyneuropathy associated with type 2 diabetes mellitus (CMS/HCC)- Primary Onychomycosis Dermatophytosis of nail documented in this encounter [facility]* Diagnosis Sinus bradycardia- Primary Other specified cardiac dysrhythmias Chest pain, unspecified type Shortness of breath Essential hypertension, benign Mixed hyperlipidemia Type 2 diabetes mellitus with hyperglycemia, without long-term current use of insulin ([facility]) documented in this encounter [facility] note* Diagnosis Contusion of left great toe with damage to nail, initial encounter- Primary Diabetic polyneuropathy associated with type 2 diabetes mellitus (HCC) Onychomycosis Dermatophytosis of nail Pain in both feet [facility] N[facility]ative - Reported* Type Description Date Medical History bladder cancer Medical HistoryhypercholesterolemiaMedical HistoryHypertensionMedical History mild LINDSAY (AHI 5.5)Medical HistoryasthmaMedical HistoryGERDMedical HistoryLumbar disc herniationSurgical Historyneck cyst [id number] History Procedure:Breast Cyst;Disease:Surgical Historybladder cancer [id number] HistoryProcedure:D&C;Disease:Surgical Historyear [id number] History Procedure:Bladder Cancer;Disease:1996Surgical Historybreast [id number] HistoryProcedure:Gallbladder;Disease:Surgical Historycarpal tunnel fetgjum9912 Surgical HistoryProcedure:Neck Cyst;Disease:Surgical HistoryD&C2002, 2008 Surgical HistorySeptoplasty SMR Turbinates06/25/14Surgical Historycarpal tunnel Surgical Daunvxhfgribtdrtnlzito8126Ctvkangm Ntnkftqhyhtfrkpmmu1843Iqmkfvch Historycyst removal from earSurgical Historybreast cyst zrxobwg4294Tqxknlhu HistoryDML Steroid Injection Left TVC1Surgical Historypolyp removed from [id number] HistorySee Sx adjust Other History general Narrative - Reported* Type Description Date Medical History bladder cancer Medical HistoryhypercholesterolemiaMedical HistoryHypertensionMedical History mild LINDSAY (AHI 5.5)Medical HistoryasthmaMedical HistoryGERDMedical HistoryLumbar disc herniationMedical Historydiabetes mallitusSurgical Historyneck cyst removal 1972Surgical HistoryProcedure:Breast Cyst;Disease:Surgical Historybladder cancer axkrluv7805Egfoouiu HistoryProcedure:D&C;Disease:Surgical Historyear [id number] Surgical HistoryProcedure:Bladder Cancer;Disease:1996Surgical Historybreast cyst 1996Surgical HistoryProcedure:Gallbladder;Disease:Surgical Historycarpal tunnel mhaemzx6194Qusdgpyx HistoryProcedure:Neck Cyst;Disease:Surgical HistoryD&C2002, 2009Surgical HistorySeptoplasty SMR Turbinates06/25/14Surgical Historycarpal tunnelSurgical Eixhwmrdypalogpqcuzcbu1240Dbxbwtha Lccjpwgmcizhvssdfk8359Wljkzttk Historycyst removal from earSurgical Historybreast cyst ywoophe2036Rmrqtyhk HistoryDML Steroid Injection Left TVC1Surgical Historypolyp removed from NY0946Iikblunraiwrhbn HistorySee Sx adjust Other Hospital course Narrative No data available for this section [facility] No data available for this section [facility] for referral (narrative)* (Routine) - Open SpecialtyDiagnoses / ProceduresReferred By ContactReferred To Contact Cardiology Diagnoses Chest pain, unspecified type Shortness of breath Procedures Nuclear stress test with myocardial perfusion Kraig Arevalo DO [address] [place] [address] Referral IDStatusReasonStart DateExpiration DateVisits RequestedVisits [id number]/22/20251/ [facility] for visit Narrative* (Routine) - OpenSpecialty Diagnoses / ProceduresReferred By ContactReferred To ContactCardiology Diagnoses Chest pain, unspecified type Shortness of breath Procedures Nuclear stress test with myocardial perfusion Kraig Arevalo DO [address] [place] [address] Referral IDStatusReasonStart DateExpiration DateVisits RequestedVisits [id number]// [facility] Summary Purpose Family History Relationship Condition Age at Onset Recorded Date/T krish mother Malignant neoplasm of colon Unknown Malignant neoplasm of breastUnknownDiabetes mellitusUnknownCoronary artery diseaseUnknownHypertensionUnknownHistory of strokeUnknownsisterMalignant neoplasm of breastUnknownbrotherDiabetes mellitusUnknownfatherDiabetes mellitus UnknownHeart diseaseUnknown Advance Directives Date ActivatedDate InactivatedComments06/02/2024 6:40 AM06/02/2024 11:09 AMDate ActivatedDate InactivatedComments06/19/2013 7:02 AM06/19/2013 4:52 PMName RelationshipHealthcare Agent RelationshipCommunicationAlvin WeidengerSpouse Primary Decision Maker* * TypeDate RecordedPatient RepresentativeExplanationAdvance Directives and Living WillPower of AttorneyCode StatusDate ActivatedDate InactivatedCommentsFull Code 06/19/2013 7:02 AM06/19/2013 4:52 PMTypeDate RecordedPatient Credit Union Field Examiner ExplanationACP-Advance DirectiveACP-Power of AttorneyTypeDate RecordedPatient RepresentativeExplanationACP-Advance DirectiveACP-Power of AttorneyCode Status Date ActivatedDate InactivatedCommentsFull Code06/19/2013 7:02 AM06/19/2013 4:52 PMTypeDate RecordedPatient RepresentativeExplanationAdvance Directives and Living WillPower of AttorneyNameRelationshipHealthcare Agent Relationship CommunicationAlvin WeidengerSpousePrimary Decision Maker* NameRelationshipHealthcare Agent RelationshipCommunicationAlvin WeidengerSpouse Primary Decision Maker* Advance Directive Response Recorded Date/ Time Advance Directives No April 12:29pm Date ActivatedDate InactivatedComments06/19/2013 7:02 AM06/19/2013 4:52 PMName RelationshipHealthcare Agent RelationshipCommunicationAlvin WeidengerSpouse Primary Decision Maker* * NameRelationshipHealthcare Agent RelationshipCommunicationAlvin WeidengerSpouse Primary Decision Maker* * Date ActivatedDate InactivatedComments06/02/2024 6:40 AMNameRelationshipHealthcare Agent RelationshipCommunicationAlvin WeidengerSpousePrimary Decision Maker* * Advance Directive Response Recorded Date/ Time Advance Directives No June 08, 2024 11:06am NameRelationshipHealthcare Agent RelationshipCommunicationAlvin WeidengerSpouse Primary Decision Maker* * NameRelationshipHealthcare Agent RelationshipCommunicationAlvin WeidengerSpouse Primary Decision Maker* * NameRelationshipHealthcare Agent RelationshipCommunicationAlvin WeidengerSpouse Primary Decision Maker* * NameRelationshipHealthcare Agent RelationshipCommunicationAlvin WeidengerSpouse Primary Decision Maker* * Date ActivatedDate InactivatedComments06/02/2024 6:40 AM06/02/2024 11:09 AMDate ActivatedDate InactivatedComments06/19/2013 7:02 AM06/19/2013 4:52 PMName RelationshipHealthcare Agent RelationshipCommunicationAlvin WeidengerSpouse Primary Decision Maker* * Assessments Diagnosis Metallic taste Disturbances of sensation of smell and taste Disturbance of smell and taste Disturbances of sensation of smell and taste Diagnosis Essential hypertension, benign Type 2 diabetes mellitus without complication, without long-term current use of insulin (HCC) Pure hypercholesterolemia Diagnosis Hypercalcemia Diagnosis Visit for screening mammogram Other screening mammogram Diagnosis Encounter for screening mammogram for breast cancer Reason for Referral StatusReasonSpecialtyDiagnoses / ProceduresReferred By ContactReferred To ContactClosedRadiology Diagnoses Visit for screening mammogram Procedures THIERNO RENEE DIGITAL SCREEN BILATERAL uSzanne Garcia MD [address] [place] [address] [facility] [address] [place] [address] StatusReasonSpecialtyDiagnoses / ProceduresReferred By ContactReferred To ContactClosedRadiology Diagnoses Encounter for screening mammogram for breast cancer Procedures THIERNO DIGITAL SCREEN W OR WO CAD BILATERAL Suzanne Garcia MD [address] [place] [address] SpecialtyDiagnoses / ProceduresReferred By ContactReferred To ContactRadiology Diagnoses Encounter for screening mammogram for malignant neoplasm of breast Procedures [facility] RENEE DIGITAL SCREEN BILATERAL Suzanne Garcia MD [address] [place] [address] Referral IDStatusReasonStart DateExpiration DateVisits RequestedVisits [id number]/16/202211/16/636760UktflqhauGoxkwyldl / Procedures Referred By ContactReferred To ContactCardiology Diagnoses Pre-op testing Procedures EKG [address], MD Carlos [address] [place] [address] Referral IDStatusReasonStart DateExpiration DateVisits RequestedVisits [id number]/19/202412/064951Lbiacekq IDStatusReasonStart Date Expiration DateVisits RequestedVisits [id number]/21/2024384978HizcgeyjdXzwafonjl / ProceduresReferred By ContactReferred To Contact Diagnoses Sinus bradycardia Sinus pause Procedures Extended cardiac holter monitor (3 days-14 day) [place] EXTERNAL ECG REC>48HR<7D REVIEW & INTERPRETATION [place] EXTERNAL ECG REC>48HR<7D RECORDING [place] EXTERNAL ECG REC>7D<15D RECORDING [place] EXTERNAL ECG REC>7D<15D REVIEW & INTERPRETATION Carlos Aguayo MD [address] [place] [address] Referral IDStatusReasonStart DateExpiration DateVisits RequestedVisits [id number] Required - RTA/934799XienanaynVhdttdtft / ProceduresReferred By ContactReferred To ContactCardiology Diagnoses Chest pain, unspecified type Shortness of breath Procedures Echo (TTE) complete (PRN contrast/bubble/strain/3D) [place] ECHO TTHRC R-T 2D W/WOM-MODE COMPL SPEC&COLR D [place] TTE W OR WO FOL WCON,DOPPLER Kraig Arevalo DO [address] [place] [address] Referral IDStatusReasonStart DateExpiration DateVisits RequestedVisits [id number] Required - RTA/ Chief Complaint and Reason for Visit Chief Complaint 1 year f/u- Cough Va riant Asthma GERD LINDSAY 2 mo f/u Asthma, CoughReason for VisitAllergic rhinitis Asthma exacerbation, mild GERD (gastroesophageal reflux disease) Obesity Peripheral eosinophilia BMI 39.0-39.9,adult Allergic rhinitis GERD (gastroesophageal reflux disease) Mild intermittent asthma, uncomplicated Obesity Peripheral eosinophilia Chief Complaint Cough, sinus drainag e Chief Complaint 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 EPIC Reason for Visit (unrecogniz ed section and content) StatusReasonSpecialtyDiagnoses / ProceduresReferred By ContactReferred To ContactClosedRadiology Diagnoses Visit for screening mammogram Procedures THIERNO RENEE DIGITAL SCREEN BILATERAL Suzanne Garcia MD [address] [place] [address] [facility] [address] [place] [address] StatusReasonSpecialtyDiagnoses / ProceduresReferred By ContactReferred To ContactClosedRadiology Diagnoses Encounter for screening mammogram for breast cancer Procedures THIERNO DIGITAL SCREEN W OR WO CAD BILATERAL Suzanne Garcia MD [address] [place] [address] SpecialtyDiagnoses / ProceduresReferred By ContactReferred To ContactRadiology Diagnoses Encounter for screening mammogram for malignant neoplasm of breast Procedures THIERNO RENEE DIGITAL SCREEN BILATERAL Suzanne Garcia MD [address] [place] [address] Referral IDStatusReasonStart DateExpiration DateVisits RequestedVisits [id number]/16/202211/16/594461QrsteihddPjobdjzlj / Procedures Referred By ContactReferred To ContactPhysical Therapist / Physical Therapy Diagnoses Acute pain of right shoulder Suzanne Garcia MD [address] [place] [address] [facility] [address] [place] [address] Referral IDStatusReasonStart DateExpiration DateVisits RequestedVisits [id number] Specialty Services Required /[id number] Foot CareHere for yearly diabetic foot check. ReasonCommentsCoughEstablished patient, coughReasonCommentsCough3 week tavia Referral IDStatusReasonStart DateExpiration DateVisits RequestedVisits [id number]/21/202412/661911BakxeyzkwCbhbtumzr / Procedures Referred By ContactReferred To Contact Diagnoses Encounter for screening colonoscopy Encounter for screening colonoscopy [Z12.11] Procedures AZ COLONOSCOPY FLX DX W/COLLJ SPEC WHEN PFRMD [place] COLSC FLX W/RMVL OF TUMOR POLYP LESION SNARE TQ [place] COLONOSCOPY W/BIOPSY SINGLE/MULTIPLE COLONOSCOPY Olivier, MD Carlos [address] [place] [address] [facility] [address] [place] [address] Referral IDStatusReasonStart DateExpiration DateVisits RequestedVisits [id number] / ProceduresReferred By ContactReferred To ContactCardiology Diagnoses Chest pain, unspecified type Shortness of breath Procedures Echo (TTE) complete (PRN contrast/bubble/strain/3D) [place] ECHO TTHRC R-T 2D W/WOM-MODE COMPL SPEC&COLR D AZ TTE W OR WO KATT ASHRAF Michael, DO [address] [place] [address] Referral IDStatusReasonStart DateExpiration DateVisits RequestedVisits [id number] Required - RTA/370516CizalcWlnfeeytFlkhqb-tp NailcareReasonCommentsToe PainRT 1st toe pain/black toenail Patient Care team informatio n (unrecognized section and content) Team MemberRelationshipSpecialtyStart DateEnd Date Suzanne Garcia MD [address] [place] [address] PCP - [facility] Medicine10/27/17Team MemberRelationshipSpecialtyStart DateEnd Date Suzanne Garcia MD [address] [place] [address] PCP - [facility]10/27/17Team MemberRelationshipSpecialtyStart DateEnd [facility] Suzanne Garcia MD [address] [phone] PCP - [facility]07/13/23Team MemberRelationshipSpecialtyStart DateEnd [facility] Suzanne Garcia MD [address] [phone] PCP - [facility]07/13/23 Team Status: Active Member Role Status Dates Suzanne Garcia MD Primary Care Provider Active Team Status: Inactive Member Role Status Dates Suzanne Garcia MD Primary Care Provider Active Start: September 30, 2023 End: September 30, 2023Blaise Lassiter DOAttrajiv ProviderActiveStart: September 30, 2023 End: September 30, 2023 Team Status: Inactive Member Role Status Dates Suzanne Garcia MD Primary Care Provider Active Start: December 09, 2023 End: December 09, 2023Vicki Hernandez ProviderActiveStart: December 09, 2023 End: December 09, 2023 Team Status: Inactive Member Role Status Dates Suzanne Garcia MD Primary Care Provider Active Start: March 09, 2024 End: March 09, 2024Jayleen Sanchez ProviderActiveStart: March 09, 2024 End: March 09, 2024Team MemberRelationshipSpecialtyStart End [facility] Suzanne Garcia MD [address] [place], [place] [phone] PCP - [facility]07/13/23 Haider Lopez MD [address] [place] [phone] Referring Physicianmily Azwrkpih34/21/24 Neftaly Mcmanus DO [address] [place] [id number] Lvwolaiszcslzq77/21/24Team MemberRelationshipSpecialtyStart [facility] Suzanne Garcia MD [address] [place], [place] [phone] PCP - [facility] Medicine07/13/23 Haider Lopez MD [address] [place] [phone] Referring Physicianmi Cwlmorka63/21/24 Neftaly Mmcanus DO [address] [place] [address] Rulocyikqgnekw76/21/24Team MemberRelationshipSpecialtyStart DateEnd [facility] Suzanne Garcia MD [address] [place], [place] [phone] PCP - [facility] Medicine07/13/23 Haider Lopez MD [address] [place] [address] [facility]erring [facility] Qmwtznco17/21/24 Neftaly Mcmanus DO [address] [place] [address] Ddadrenrshysfp78/21/24Team MemberRelationshipSpecialtyStart DateEnd Date Suzanne Garcia MD [address] [place] [phone] [facility]10/27/17Team MemberRelationshipSpecialtyStart DateEnd Date Suzanne Garcia MD [address] [place] [phone] PCP - Generalmi Medicine10/27/17Team MemberRelationshipSpecialtyStart DateEnd Date Suzanne Garcia MD [address] [phone] [facility]/27/17Team MemberRelationshipSpecialtyStart DateEnd Date Suzanne Garcia MD [address] [phone] PCP - [facility] Medicine10/27/17 Team Status: Inactive Member Role Status Dates Suzanne Garcia MD Primary Care Provider Active Start: June 08, 2024 End: June 08, 2024Blaise Lassiter DOAttending ProviderActiveStart: June 08, 2024 End: June 08, 2024Team MemberRelationshipSpecialtyStart DateEnd Date Suzanne Garcia MD [address] [place] [phone] PCP - GeneralFamily Medicine10/27/17Team MemberRelationshipSpecialtyStart DateEnd [facility] Suzanne Garcia MD [address] [place] [phone] PCP - [facility] Medicine10/27/17Team MemberRelationshipSpecialtyStart DateEnd Date Suzanne Garcia MD [address] [phone] PCP - [facility] Medicine10/27/17Team MemberRelationshipSpecialtyStart DateEnd [facility] Suzanne Garcia MD [address] [place] [address] PCP - [facility] Medicine10/27/17Team MemberRelationshipSpecialtyStart DateEnd [facility] Suzanne Garcia MD [address] [place], [place] [phone] PCP - [facility] Medicine07/13/23 Haider Lopez MD [address] [phone] Referring PhysicianFamily Nlppzjna49/21/24 Neftaly Mcmanus DO [address] [place] [address] Rtgmybiizbehhi44/21/24 Blaise Lassiter MD [address] [place] [address] Referring PhysicianPulmonary Disease07/19/24Team MemberRelationshipSpecialtyStart DateEnd [facility] Suzanne Garcia MD [address] [place], [place] [phone] PCP - [facility] Medicine07/13/23 Haider Lopez MD [address] 1947[address] Referring Physicianmi Itmwpnuq42/21/24 Neftaly Mcmanus DO [address] [place] [phone] Jljqgkdsjrupjz82/21/24 Blaise Lassiter MD [address] [place] [phone] Referring PhysicianPulmonary Disease07/19/24Team MemberRelationshipSpecialtyStart DateEnd [facility] Suzanne Garcia MD [address] [place] [address] [facility]10/27/17Team MemberRelationshipSpecialtyStart DateEnd [facility] Suzanne Garcia MD [address] [place], [place] [phone] [facility]07/13/23 Haider Lopez MD [address] [place] [address] [phone] Referring Physicianmi Pblonzmd35/21/24 Neftaly Mcmanus DO [address] [place] [address] Incacsytokmlkp94/21/24 Blaise Lassiter DO [address] [place] [address] Referring PhysicianPulmonary Disease07/19/24Team MemberRelationshipSpecialtyStart DateEnd Date Suznane Garcia MD [address] [place] [address] PCP - GeneralFamily Medicine07/13/23 Haider Lopez MD [address] [place] [address] [place] [address] Referring PhysicianFamily Phydzsxq97/21/24 Neftaly Mcmanus DO [address] [place] [address] Scrzjouitzniww63/21/24 Blaise Lassiter DO [address] [place] [address] Referring PhysicianPulmonary Disease07/19/24 Goals (unrecognized section and content) Goals may be documented in a n alternate section Scheduled Active and Recently Administ ered Medications (unrecognized section and content) Medication Order05/31///07/2024 sodium chloride flush 0.9 % injection 5-40 mL 5-40 mL, IntraVENous, EVERY 12 HOURS SCHEDULED (2 times per day), First dose on Wed06/02/24 at 0900,Until Discontinued, For Line Patency: Peripheral IV = [...] or Central Line = 20 mL/lumen, Pre-procedure(GI) * 0900 (Due) * 2100 (Due) Medication Order/ lactated ringers infusion IntraVENous, at 75 mL/hr, CONTINUOUS, Starting on Wed06/02/24 at 0700, Pre-procedure(GI) * 0700 (Due) Medication Order05/31/// 0.9 % sodium chloride infusion 25 mL, [...] as the IV push. Flush volume is determinedby type of infusion therapy being given. For [...] BE BASED ON THE PRIMARY CLINICAL RECORDS. [facility]. provides no warranty or guarantee of the accuracy or completeness of information in this document.
== END 2025-05-08 10:05 | disposition home or self-care (01) ==
LOC: CT 10:04
PROVIDERS: PCP Family Medicine; Visit Provider Internal Medicine
DX: R91.8 Other nonspecific abnormal finding of lung field (principal)
CPT/HCPCS: 71250

== ENCOUNTER 2025-05-25 10:26 | Outpatient (OUT) | payer MEDICARE, SELFPAY ==
--- OUTSIDE RECORDS SUMMARY | 2025-05-16 09:59 | XMS_ITS | Encounter Summary ---
Author Organization [facility] Address [address], [address] [place] [address] Care Team Providers Care Bottom Loader Name Role Phone Lizabeth Douglas MD Primary Care Provider [phone] Reason for Visit * ReasonCommentsEducation Class Encounter Details DateTypeDepartmentCare Team (Latest Contact Info)Ipowsyidyzs31/17/2025 9:59 AM EST - 05/16/2025 11:59 PM ESTHospital Encounter [facility] Diabetic Education [address] [place] [address] Discharge Disposition: Home or Self Care Social History Tobacco UseTypesPacks/DayYears UsedDateSmoking Tobacco: NeverPassive Smoke Exposure: NeverSmokeless Tobacco: NeverAlcohol UseStandard Drinks/WeekComments Never0 (1 standard drink = 0.6 oz pure alcohol)[facility] UtilitiesAnswerDate Recorded In the past 12 months has the electric, gas, oil, or water company threatened to shut off services in your home?No07/24/2024UDIT-CAnswerDate RecordedQ1: How often do you have a drink containing alcohol?Never04/12/2024Q2: How many drinks containing alcohol do you have on a typical day when you are drinking?Patient does not drink04/12/2024Q3: How often do you have six or more drinks on one occasion?Never04/12/2024Overall Financial Resource Strain (CARDIA)AnswerDate RecordedHow hard is it for you to pay for the very basics like food, housing, medical care, and heating?Not hard at all07/08/2023HQ-2AnswerDate RecordedPHQ-9 Total Lhsll526Exercise Vital SignAnswerDate RecordedOn average, how many days per week do you engage in moderate to strenuous exercise (like a brisk [employer])?0 days04/12/2024On average, how many minutes do you engage in exercise at this level?0 min04/12/2024Hunger Vital SignAnswerDate RecordedWithin the past 12 months, you worried that your food would run out before you got the money to buy more.Never true07/24/2024Within the past 12 months, the food you bought just didn't last and you didn't have money to get more.Never true07/24/2024PRAPARE - TransportationAnswerDate RecordedIn the past 12 months, has lack of transportation kept you from medical appointments or from getting medications?No 07/24/2024In the past 12 months, has lack of transportation kept you from meetings, work, or from getting things needed for daily living?No07/24/2024 Housing Stability Vital SignAnswerDate RecordedUnable to Pay for Housing in the Last YearNot on file07/08/2023Number of Places Lived in the Last YearNot on file 07/08/2023In the last 12 months, was there a time when you did not have a steady place to sleep or slept in [facility] (including now)?No07/08/2023Housing Stability Vital SignAnswerDate RecordedIn the last 12 months, was there a time when you were not able to pay the mortgage or rent on time?No07/24/2024In the past 12 months, how many times have you moved where you were living? At any time in the past 12 months, were you homeless or living in a long term (including now)?No07/24/2024UDIT-CAnswerDate RecordedQ1: How often do you have a drink containing alcohol?Never04/17/2025Q2: How many drinks containing alcohol do you have on a typical day when you are drinking?Patient does not drink 04/17/2025Q3: How often do you have six or more drinks on one occasion?Never 04/17/2025Exercise Vital SignAnswerDate RecordedOn average, how many days per week do you engage in moderate to strenuous exercise (like a brisk walk)?4 days 04/17/2025On average, how many minutes do you engage in exercise at this level? 50 min04/17/2025Food InsecurityAnswerDate RecordedWithin the past 12 months, you worried that your food would run out before you got the money to buymore.1 07/24/2024Within the past 12 months, the food you bought just didn't last and you didn't have money to get more.Interpersonal Safety Domain Source: IP Abuse ScreeningAnswerDate RecordedPhysical qzgqoKtyzct92/03/2025Verbal abuse Brtyax4506/02/2024Emotional oaokmQqrkhk34/03/2025Financial mljayZrbscp37/03/2025 Sexual jagxmJebsjr47/03/2025CommentsNoSex and Gender InformationValue Date RecordedSex Assigned at KdpqvBsyiuv35/05/2025 9:37 AM EDTLegal SexFemale 07/10/2012 1:22 PM ESTGender LxbwsggvOgmrkd43/05/2025 9:37 AM EDTSexual MibokdvguqpJrxgvpvq65/05/2025 9:38 AM EDTdocumented as of this encounter Last Filed Vital Signs Vital SignReadingTime TakenCommentsBlood Pressure--Pulse--Temperature-- Respiratory Rate--Oxygen Saturation--Inhaled Oxygen Concentration--Mgfqzd627 kg (235 lb 12.8 oz)05/16/2025 10:05 AM PPTPbjkcy254.8 cm (5' 4.5 )05/16/2025 10:05 AM ESTBody Mass Index39.8505/16/2025 10:05 AM ESTdocumented in this encounter Medications at Time of Discharge MedicationSigDispense QuantityRefillsLast FilledStart DateEnd Date lisinopril (PRINIVIL;ZESTRIL) 10 MG tablet Take 1 tablet by mouth daily 90 tablet 05/08/2025 dapagliflozin (FARXIGA) 10 MG tablet Take 0.5 tablets by mouth every morning Dispensed from samples Lot # [id number] exp date 11/28/27 21 tablet 04/23/2025 glimepiride (AMARYL) 4 MG tablet TAKE 1 TABLET BY MOUTH EVERY DAY IN THE MORNING 90 tablet meloxicam (MOBIC) 15 MG tablet TAKE 1 TABLET BY MOUTH EVERY DAY 90 tablet metoprolol succinate (TOPROL XL) 25 MG extended release tablet TAKE 1 TABLET BY MOUTH EVERY DAY 90 tablet hydroCHLOROthiazide (HYDRODIURIL) 25 MG tablet TAKE 1 TABLET BY MOUTH EVERY DAY 90 tablet lovastatin (MEVACOR) 40 MG tablet TAKE 1 TABLET BY MOUTH EVERY DAY AT NIGHT 90 tablet metFORMIN (GLUCOPHAGE-XR) 500 MG extended release tablet TAKE 2 TABLETS BY MOUTH EVERY DAY WITH BREAKFAST 180 tablet fluticasone (FLONASE) 50 MCG/ACT nasal spray 2 sprays by Nasal route daily azelastine HCl (ASTEPRO) 0.15 % SOLN by Nasal route 1 spray each nostril daily esomeprazole (NEXIUM) 40 MG delayed release capsule Take 1 capsule by mouth every morning (before breakfast)09/30/2023 ZINC PO Take by mouth VITAMIN D PO Take by mouth daily GLUCOSAMINE-CHONDROITIN PO Take by mouth vitamin C (ASCORBIC ACID) 500 MG tablet Take 1 tablet by mouth daily Cinnamon 500 MG TABS Take by mouth daily [place]-3 Fatty Acids (FISH OIL) 1000 MG CAPS Take 1 capsule by mouth daily vitamin E 400 UNIT capsule Take 1 capsule by mouth daily cetirizine (ZYRTEC) 10 MG tablet Take 1 tablet by mouth in the morning and at bedtimedocumented as of this encounter Progress Notes * Rayna Huertas RN - 05/16/2025 10:00 AM EST Diabetes Self-Management Education Record Progress Note: Kathyrn here alone for diabetes education classes 2 and 3. She was diagnosed with type2 DM approx 10 years ago and recently had a jump in her A1C. Discussed some of the causes of her A1C increasing from the 8-9% range up to slightly over 12%. Discussed that diabetes is a progressive disease and that it usually changes over time. She remembers she had recently taken prednisone twice for allergies; once in Jan and once in Feb. Also, she had not been exercising d/t her running her toe into her 's steel toed boot and finding it painful to continue walking as she had been doing previous to the injury. States she still has pain and was told it will take up to 6 months to heal but walking is tolerable when she wraps her toe and wears comfortable shoes. For the past week she has been wearing a Dexcom G7 sensor. Shown and discussed Dexcom report and she is able to see on the daily graph how her glucose is affected by being active and by what she eats. 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 She continues taking Farxiga 5 mg, glimepiride 4 mg daily, and metformin XR (2) 500 mg daily. Reinforced the best time to take her glimepiride is before she eats. Reviewed target numbers and hyperglycemia. Her glucose reading in this office was 250 at 10:17. She had half a hamburger (no bun) this morning at 4:00 AM as she was cooking her 's lunch for work, then at 7:00 she had a granola bar which she enjoys every morning. Reviewed kasper points of healthy eating and carbohydrate counting. She had been mostly snacking throughout the day and eating one meal at supper but admits when she had eaten breakfast at support group last week she noticed she did not eat as much at supper that evening and her glucose numbers were lower. Since then she has been trying to figure out some meal options that she can easily just grab and go. Options given and provided with Planning Healthy Meals fold-out by [employer]. With her daily schedule and food preferences in mind, discussed possibly having a serving of proteinwith her granola bar when she first gets up in the morning, or having her granola bar when she getsup at 2:30 AM then later having a serving of protein and a piece of fruit after her morning chores are completed, which would be around 7:00 AM. Encouraged to try both ways and check her glucose while she has the Dexcom to see which works best for her. All topics for classes 2 and 3 discussed. Diabetes education 3 month follow up scheduled for 07-31-24 10:00 AM. Encouraged to call with questions or concerns. Conversation map Monitoring Your Blood Glucose utilized. Topics: What blood glucose and insulin are Blood glucose targets and how you feel when your blood glucose is in and out of your target ranges Monitoring and knowing your A1C What can make blood glucose go up and down and preventing high and low blood glucose Using your monitoring results to manage your diabetes Sick days with diabetes Dining out and special events Diabetes disaster planning Conversation map Continuing Your Journey with Diabetes utilized. Topics: The natural course of diabetes Recognizing the fact that it may become more difficult to keep your blood glucose within your target range The potential long-term complications of diabetes How to delay or reduce the risk of long-term complications by keeping your blood glucose on target The importance of checking for long-term complications and knowing your ABCs How oral diabetes medications work How other diabetes medications work Defining the different types of insulin Lab Results Component Value Date LABA1C 12.1 04/17/2025 LABA1C 8.5 (H) 10/17/2024 LABA1C 9.8 07/24/2024 Lab Results Component Value Date MALBCR Can not be calculated 10/17/2024 CREATININE 0.8 10/17/2024 Wt Readings from Last 3 Encounters: 05/16/25 107 kg (235 lb 12.8 oz) 05/09/25 106.3 kg (234 lb 6.4 oz) 04/24/25 106.1 kg (234 lb) Participant Name: Kathryn Giordano Referring Provider: Lizabeth Douglas MD Jeff to learning: Considerations: []Language []Emotional []Health Literacy []Cognitive []Memory changes []Financial []Cultural []Yarsanism []Vision []Hearing []Speech []Lack of desire []Literacy []Psycho- social [x]None [] Covid-19 group restrictions If considerations are noted, accommodations made: N/A Identified barriers to learning/self management: None The following information was discussed: [x] Diabetes disease process and treatment options [x] Healthy nutrition, carbohydrate counting, meal planning [x] Monitoring blood glucose and other parameters; interpreting and using results [x] Acute complications--prevention, detection and treatment [x] Medication management and safety [x] Diabetes distress and support [x] Exercise for Health, Reducing Risks for Heart Disease, Diabetes and Heart Health; Incorporatingphysical activity into lifestyle [x] Preventing, through risk reduction behaviors, detecting, and treating chronic complications [x] Sick Day management [x] Developing personalized strategies to address psychosocial issues and concerns [x] Developing personalized strategies to promote health and behavior change through goalsetting, behavior change strategies aimed at risk reduction [x] Special situations--disaster planning, travel, social activities [x] Foot, skin, and dental care Session Assessment & Evaluation Ratings: 1=Needs Instruction 2=Needs Review 3=Comprehends Kasper Points 4=Demonstrates Understanding/Competency NC=Not Covered N/A=Not Applicable Initial Assess Date: 05-09-25 2nd Visit Date: 05/16/25 3rd Visit Date: 4th Visit Date: Comments S.O.C=Stage of Change/Readiness to change: Pre=Pre-contemplation stage--not thinking about changing C=Contemplation stage--ambivalent about changing P=Preparation stage--prepared to made a specific change A=Action stage--committed to modify behaviors M=Maintenance and relapse prevention--incorporating new behavior Participant Stated Goal Exercise for 30 minutes 3-5 times each week. Participant Stated Goal S.O.C [] PRE [] C [] P [] A [x] M S.O.C [] PRE [] C [] P [] A [] M S.O.C [] PRE [] C [] P [] A [x] M S.O.C [] PRE [] C [] P [] A [] M S.O.C [] PRE [] C [] P [] A [] M S.O.C [] PRE [] C [] P [] A [] M S.O.C [] PRE [] C [] P [] A [] M S.O.C [] PRE [] C [] P [] A [] M Current main goal attainment frequency: [] Never [] Some [] Half [x] Most [] All Participant confidence to master goal this visit: [x] Excellent [] Good [] Fair [] Poor Current main goal attainment frequency: [] Never [] Some [] Half [] Most [] All Participant confidence to master goal this visit: [] Excellent [] Good [] Fair [] Poor Session Topics & Learning Objectives: Comments: Diabetes pathophysiology: Define diabetes & prediabetes; identify own type of diabetes; list 3 options for treating diabetes. Rating [x] 1 [] 2 [] 3 [] 4 [] NC [] N/A Rating [] 1 [] 2 [x] 3 [] 4 [] NC [] N/A Rating [] 1 [] 2 [] 3 [] 4 [] NC [] N/A Rating [] 1 [] 2 [] 3 [] 4 [] NC [] N/A Healthy Eating: Describe effect of type, amount & timing of food on blood glucose; List 3 methods for planning meals. Rating [x] 1 [] 2 [] 3 [] 4 [] NC [] N/A Rating [] 1 [] 2 [x] 3 [] 4 [] NC [] N/A Rating [] 1 [] 2 [] 3 [] 4 [] NC [] N/A Rating [] 1 [] 2 [] 3 [] 4 [] NC [] N/A Being Active: State effect of exercise on blood glucose levels. Rating [x] 1 [] 2 [] 3 [] 4 [] NC [] N/A Rating [] 1 [] 2 [x] 3 [] 4 [] NC [] N/A Rating [] 1 [] 2 [] 3 [] 4 [] NC [] N/A Rating [] 1 [] 2 [] 3 [] 4 [] NC [] N/A Taking Medications: State effect of diabetes medicines on diabetes; name diabetes medication being taking, action, timing & side effects. Rating [x] 1 [] 2 [] 3 [] 4 [] NC [] N/A Rating [] 1 [] 2 [x] 3 [] 4 [] NC [] N/A Rating [] 1 [] 2 [] 3 [] 4 [] NC [] N/A Rating [] 1 [] 2 [] 3 [] 4 [] NC [] N/A Insulin/injectable- Appropriate injection site; proper storage; proper technique; safe needle disposal. Rating [x] 1 [] 2 [] 3 [] 4 [] NC [] N/A Rating [] 1 [] 2 [x] 3 [] 4 [] NC [] N/A Rating [] 1 [] 2 [] 3 [] 4 [] NC [] N/A Rating [] 1 [] 2 [] 3 [] 4 [] NC [] N/A Monitoring glucose, interpreting and using results: Identify recommended blood glucose targets and personal targets. Rating [x] 1 [] 2 [] 3 [] 4 [] NC [] N/A Rating [] 1 [] 2 [x] 3 [] 4 [] NC [] N/A Rating [] 1 [] 2 [] 3 [] 4 [] NC [] N/A Rating [] 1 [] 2 [] 3 [] 4 [] NC [] N/A Acute Complications: List symptoms and treatment of hyper- and hypoglycemia, DKA, sick day guidelines, guidelines for severe weather or situation crisis and diabetes supply management. Rating [x] 1 [] 2 [] 3 [] 4 [] NC [] N/A Rating [] 1 [] 2 [] 3 [] 4 [] NC [] N/A Rating [] 1 [] 2 [] 3 [] 4 [] NC [] N/A Rating [] 1 [] 2 [] 3 [] 4 [] NC [] N/A Chronic Complications: Define the relationship of blood glucose levels to rodent exterminator complications of diabetes and screening and prevention measures. Rating [x] 1 [] 2 [] 3 [] 4 [] NC [] N/A Rating [] 1 [] 2 [x] 3 [] 4 [] NC [] N/A Rating [] 1 [] 2 [] 3 [] 4 [] NC [] N/A Rating [] 1 [] 2 [] 3 [] 4 [] NC [] N/A Lifestyle and Healthy Coping: Describe lifestyle and healthy coping strategies to promote diabetes self-management. Rating [x] 1 [] 2 [] 3 [] 4 [] NC [] N/A Rating [] 1 [] 2 [] 3 [] 4 [] NC [] N/A Rating [] 1 [] 2 [] 3 [] 4 [] NC [] N/A Rating [] 1 [] 2 [] 3 [] 4 [] NC [] N/A Diabetes Distress and Support: Recognize diabetes distress and be able to identify support options. Rating [x] 1 [] 2 [] 3 [] 4 [] NC [] N/A Rating [] 1 [] 2 [] 3 [] 4 [] NC [] N/A Rating [] 1 [] 2 [] 3 [] 4 [] NC [] N/A Rating [] 1 [] 2 [] 3 [] 4 [] NC [] N/A Time spent with patient: 85 minutes Next Appointment: 06-11-25 at 10:30 AM; 07-31-25 at 10:00 AM Instruction Method: [x]Lecture/Discussion []Power Point Presentation [x]Handouts []Return Demonstration Education Materials/Equipment Provided: [x]Self-Management - Initial assessment - ADA ??? Where do I Begin? Living with Type 2 diabetes booklet; What is Diabetes handout; Diet meal planning basics, Glucose target ranges, hyper/hypoglycemia signs/symptoms and treatment handout; Diabetes zones; Support plan resource list. [x]Self-Management Class 1 - ???How To Thrive: A Guide for Your Journey with Diabetes booklet. Healthy Interactions Conversation Map On The Road To Better Managing Your Diabetes ; Diabetes Distressand Coping handout; Exercise handouts; Meal Planning handout; Know Your Numbers/Diabetes Care Checklist , [x] Self-Management Class 2 - Traveling with Diabetes , ???Dining Out With Diabetes?? , Diabetes Disaster Planning , ???High Blood Sugar?? , ???Low Blood Sugar?? . Healthy Interactions Map Monitoring Your Blood Glucose. [x] Self-Management Class 3 - Risk Factors for CVD , foot care tips sheet and How to pick the right shoe , Medications Used To Treat Diabetes , How To Care For Your Teeth and Gums , Vaccinations For Adults with Diabetes , Type 2 diabetes and the role of GLP-1 ; Kidney Health handout. Healthy Interactions Map Continuing Your Journey . []Self-Management - 3 month follow-up []Glucose Meter [x] CGM Dexcom G7 []Insulin Kit []Other Handouts/Booklets given: [x] How To Thrive: A Guide for Your Journey with Diabetes [x] Daily Diabetic Meal Planning Guide [x] Nutrition in the Fast [employer] [x] Resources for People With Diabetes [] Other Diabetes Self Management Support Plan: To assist and support your continued progress in managing your diabetes following education- ( ) Gym or exercise program of your choice. (Suggestions: [employer], Circuit training, any exercise facility and your local Physical Therapy or Cardiac Rehabilitation exercise Program) ( ) Library ( x ) ADA website: Http://www.diabetes.org ( ) Http: //www.[employer].Shirley Mae's/-janes/faq.htm ( ) Diabetes Forecast [place] you may get this information on the ADA web site. ( ) Diabetes Interview - [place] ( ) Diabetes Self Management (bi-monthly magazine) ( ) Support group: ( ) Support group: Sharla first Wednesday of the month at 9 am and Graeme second Wednesday of the month at 9 am ( ) Health Journeys Image Paths (relaxation tapes for people with Diabetes) ( ) Your suggestions: Rayna Huertas RN [facility] Diabetes clinic educator 05/16/2025 1:54 PM documented in this encounter Plan of Treatment DateTypeDepartmentCare Team (Latest Contact Info)Txqvsvwwctl37/12/2026 10:30 AM ESTAppointment [facility] Diet and Nutrition [address] [place] [phone] Jesus Butler, RD, LD 07/17/2025 10:30 AM ESTOffice Visit [facility] Hand [address] [place] [id number] Jamarcus Arevalo DO [address] [place] [address] 6 month f/u no hnjqros7407/23/2025 11:00 AM ESTOffice Visit [facility] [address] [place] [address] Lizabeth Douglas MD [address] [phone] 3 mos - DM - A1c07/24/2025 1:30 PM ESTOffice [facility] [address] [place] [address] Blaise Lassiter DO [address] [place] [address] 3 MO F/U ASTHMA/OSA07/31/2025 10:00 AM ESTAppointment [facility] Diabetic Education [address] [place] [address] documented as of this encounter Visit Diagnoses Not on filedocumented in this encounter Additional Health Concerns AssessmentNoted TimeA fall risk assessment has been completed for the patient 04/17/2025 9:53 AM ESTdocumented as of this encounter Care Teams Team MemberRelationshipSpecialtyStart DateEnd Date Lizabeth Douglas MD [address] [place] [address] PCP - GeneralFamily Medicine10/27/17documented as of this encounter
--- OUTSIDE RECORDS SUMMARY | 2025-05-25 10:29 | XMS_ITS | Encounter Summary ---
Author Organization [facility] Address [address], [address] [place] [address] Care Team Providers Care Ammonia Refrigeration Technician Name Role Phone Lizabeth Douglas MD Primary Care Provider [phone] Encounter Details DateTypeDepartmentCare Team (Latest Contact Info)Ntravaerwxu72/10/2025Orders Only [facility] Pulmonology [address] [place], [place] [id number] Dl House MA Multiple pulmonary nodules Social History Tobacco UseTypesPacks/DayYears UsedDateSmoking Tobacco: NeverPassive Smoke Exposure: NeverSmokeless Tobacco: NeverAlcohol UseStandard Drinks/WeekComments Never0 (1 standard drink = 0.6 oz pure alcohol)[facility] UtilitiesAnswerDate Recorded In the past 12 months has the Spark, gas, oil, or water [employer] threatened to shut off services in your [...] and heating?Not hard at all07/08/2023HQ-2AnswerDate RecordedPHQ-9 Total Bsyuf083Exercise Vital SignAnswerDate RecordedOn average, how many days [...] steady place to sleep or slept in [facility] (including now)?No07/08/2023Housing Stability Vital SignAnswerDate RecordedIn the last 12 months, was there a time when you were not able to pay the mortgage or rent on time?No07/24/2024In the past 12 months, how many times have you moved where you were living? At any time in the past 12 months, were you homeless or living in a senior care (including now)?No07/24/2024UDIT-CAnswerDate RecordedQ1: How often do you [...] Safety Domain Source: IP Abuse ScreeningAnswerDate RecordedPhysical hgiinFcpbof03/03/2025Verbal abuse Zitrxo5506/02/2024Emotional ibiwtHzoagj80/03/2025Financial uczjnHbagrx82/03/2025 Sexual bcvqwJmdonv91/03/2025CommentsNoSex and Gender InformationValue Date RecordedSex Assigned at ApgojQisdok32/05/2025 9:37 AM EDTLegal SexFemale 07/10/2012 1:22 PM ESTGender MtsvnwkwUdawgr82/05/2025 9:37 AM EDTSexual UfxliqeuualSlfqgkng45/05/2025 9:38 AM EDTdocumented as of this encounter Plan of Treatment DateTypeDepartmentCare Team (Latest Contact Info)Nuruxkethqt54/12/2026 10:30 AM ESTAppointment [facility] Diet and Nutrition [address] [place] [address] Jesus Butler, RD, LD 07/17/2025 10:[address] [facility] [employer] Machine As[employer]er [address] [place] [phone] Jamarcus Arevalo DO [address] [place] [address] 6 month f/u no kifvoui4707/23/2025 11:00 AM ESTOffice Visit [facility] [address] [place] [address] Lizabeth Douglas MD [address] [place] [address] 3 mos - DM - A1c07/24/2025 1:30 PM ESTOffice Visit [facility] Pulmonology [address] [place] [address] Blaise Lassiter DO [address] [facility] [address] [place] [address] 3 MO F/U ASTHMA/OSA07/31/2025 10:00 AM ESTAppointment [facility] [address] [place] [address] documented as of this encounter Procedures Procedure NamePriorityDate/TimeAssociated DiagnosisCommentsCT CHEST WO CONTRAST Lxqlghy0505/08/2025 Multiple pulmonary nodules documented in this encounter Results * CT CHEST WO CONTRAST (05/08/2025)Anatomical RegionLateralityModalityChest Computed Tomography Narrative Authorizing ProviderResult TypeResult StatusNatjatin Maikol DOIMG CT ORDERABLES Final Result documented in this encounter Visit Diagnoses Diagnosis Multiple pulmonary nodules Other nonspecific abnormal finding of lung field documented in this encounter Additional Health Concerns AssessmentNoted TimeA fall risk assessment has been completed for the patient 04/17/2025 9:53 AM ESTdocumented as of this encounter Care Teams Team MemberRelationshipSpecialtyStart DateEnd Date Lizabeth Douglas MD [address] [place] [address] PCP - GeneralFamily Medicine10/27/17documented as of this encounter
--- OUTSIDE RECORDS SUMMARY | 2025-05-25 10:29 | XMS_ITS | Encounter Summary ---
Author Organization [facility] Address [address], [address] [place] [address] Care Team Providers Care Senior Health Consultant Name Role Phone Lizabeth Douglas MD Primary Care Provider [phone] Reason for Referral * Imaging (Routine) - Pending ReviewSpecialtyDiagnoses / ProceduresReferred By ContactReferred To ContactRadiology Diagnoses Multiple pulmonary nodules Procedures CT CHEST WO CONTRAST Blaise Lassiter DO [address] [place] [address] Phone: tel: fax: Referral IDStatusReasonStart DateExpiration DateVisits RequestedVisits [id number] Review Encounter Details DateTypeDepartmentCare Team (Latest Contact Info)Lfdrsswmhdu89/11/2025Telephone [facility] Pulmonology [address] [place] [address] Blaise Lassiter DO [address] [place] [address] Social History Tobacco UseTypesPacks/DayYears UsedDateSmoking Tobacco: NeverPassive Smoke Exposure: NeverSmokeless Tobacco: NeverAlcohol UseStandard Drinks/WeekComments Never0 (1 standard drink = 0.6 oz pure alcohol)[facility] UtilitiesAnswerDate Recorded In the past 12 months [...] and heating?Not hard at all07/08/2023HQ-2AnswerDate RecordedPHQ-9 Total Wigar262Exercise Vital SignAnswerDate RecordedOn average, how many days [...] Lived in the Last YearNot on file 02/08/2024In the last 12 months, was there a time when you did not have a steady place to sleep or slept in ashelter (including now)?No07/08/2023Housing Stability Vital SignAnswerDate RecordedIn the last 12 months, was there a time when you were not able to pay the mortgage or rent on time?No07/24/2024In the past 12 months, how many times have you moved where you were living? At any time in the past 12 months, were you homeless or living in a longterm (including now)?No07/24/2024UDIT-CAnswerDate RecordedQ1: How often do you [...] Safety Domain Source: IP Abuse ScreeningAnswerDate RecordedPhysical uowcaHbdact45/03/2025Verbal abuse Tbobwe1106/02/2024Emotional ajfddOzvyzn46/03/2025Financial raqmnDbvfth89/03/2025 Sexual zqofnNhyxdi43/03/2025CommentsNoSex and Gender InformationValue Date RecordedSex Assigned at FnlquNzuaij99/05/2025 9:37 AM EDTLegal SexFemale 07/10/2012 1:22 PM ESTGender IgivebuhDhvtly13/05/2025 9:37 AM EDTSexual NmrohcdawctAmvvmvss97/05/2025 9:38 AM EDTdocumented as of this encounter Plan of Treatment DateTypeDepartmentCare Team (Latest Contact Info)Tsuthmsocvz29/12/2026 10:30 AM ESTAppointment [facility] Diet and Nutrition [address] [place] [address] Jesus Butler, RD, LD 07/17/2025 10:30 AM ESTOffice Visit [facility] Cash Processor [address] [place] [phone] Jamarcus Arevalo DO [address] [place] [address] 6 month f/u no zayruyg5607/23/2025 11:00 AM ESTOffice Visit [facility] [place] [address] [place] [phone] Lizabeth Douglas MD [address] [place] [id number] 3 mos - DM - A1c07/24/2025 1:30 PM ESTOffice Visit [facility] Pulmonology [address] [place] [address] [address] [place] [address] Blaise Lassiter DO [address] [place] [address] 3 [place] F/U ASTHMA/OSA07/31/2025 10:00 AM ESTAppointment [facility] Diabetic Education [address] [place] [address] NameTypePriorityAssociated DiagnosesOrder ScheduleCT CHEST WO CONTRASTImaging Routine Multiple pulmonary nodules Expected: 11/08/2025, Expires: 05/10/2026documented as of this encounter Visit Diagnoses Diagnosis Multiple pulmonary nodules- Primary Other nonspecific abnormal finding of lung field documented in this encounter Additional Health Concerns AssessmentNoted TimeA fall risk assessment has been completed for the patient 04/17/2025 9:53 AM ESTdocumented as of this encounter Care Teams Team MemberRelationshipSpecialtyStart DateEnd Date Lizabeth Douglas MD [address] [place] [address] PCP - GeneralFamily Medicine10/27/17documented as of this encounter
--- OUTSIDE RECORDS SUMMARY | 2025-05-25 10:30 | XMS_ITS | Clinical Summary ---
Author Organization [facility] Address [address], [address] [place] [address] Care Team Providers Care Field Installer Name Role Phone Lizabeth Douglas MD Primary Care Provider [phone] Allergies Active AllergyReactionsCriticalityNoted DateCommentsLosartanSwelling,RashLow 11/29/2013Montelukast QmktdtKgjaSza14/15/2011 Medications MedicationSigDispense QuantityRefillsLast FilledStart DateEnd DateStatus cetirizine (ZYRTEC) 10 MG tablet Take 1 tablet by mouth in the morning and at bedtimeActive vitamin E 400 UNIT capsule Take 1 capsule by mouth dailyActive Cinnamon 500 MG TABS Take by mouth dailyActive Jenks-3 Fatty Acids (FISH OIL) 1000 MG CAPS Take 1 capsule by mouth dailyActive vitamin C (ASCORBIC ACID) 500 MG tablet Take 1 tablet by mouth dailyActive GLUCOSAMINE-CHONDROITIN PO Take by mouthActive VITAMIN D PO Take by mouth dailyActive ZINC PO Take by mouthActive esomeprazole (NEXIUM) 40 MG delayed release capsule Take 1 capsule by mouth every morning (before breakfast)4Active fluticasone (FLONASE) 50 MCG/ACT nasal spray 2 sprays by Nasal route dailyActive azelastine HCl (ASTEPRO) 0.15 % SOLN by Nasal route 1 spray each nostril dailyActive lovastatin (MEVACOR) 40 MG tablet TAKE 1 TABLET BY MOUTH EVERY DAY AT NIGHT 90 tablet 5Active metFORMIN (GLUCOPHAGE-XR) 500 MG extended release tablet TAKE 2 TABLETS BY MOUTH EVERY DAY WITH BREAKFAST 180 tablet 5Active metoprolol succinate (TOPROL XL) 25 MG extended release tablet TAKE 1 TABLET BY MOUTH EVERY DAY 90 tablet 5Active hydroCHLOROthiazide (HYDRODIURIL) 25 MG tablet TAKE 1 TABLET BY MOUTH EVERY DAY 90 tablet 5Active meloxicam (MOBIC) 15 MG tablet TAKE 1 TABLET BY MOUTH EVERY DAY 90 tablet 5Active glimepiride (AMARYL) 4 MG tablet TAKE 1 TABLET BY MOUTH EVERY DAY IN THE MORNING 90 tablet 5Active dapagliflozin (FARXIGA) 10 MG tablet Take 0.5 tablets by mouth every morning Dispensed from samples Lot # [id number] exp date 11/28/27 21 tablet 5Active lisinopril (PRINIVIL;ZESTRIL) 10 MG tablet Take 1 tablet by mouth daily 90 tablet 5Active lisinopril (PRINIVIL;ZESTRIL) 10 MG tablet Take 1 tablet by mouth daily05/08/2025Discontinued(REORDER) Active Problems ProblemNoted DateDiagnosed DateMultiple pulmonary ysycetj9204/24/2025 Assessment & Plan (04/24/2025 2:02 PM EST): HRCT 11/02/2024 noted multiple pulmonary nodules, largest 9mm in LLL. Overall suggested granulomatousdisease. 6-month F/U CT recommended. I reordered it through the [facility] EMR. She was previously evaluated for pulmonary by Dr. Biswas - I currently do not have those records available. Patient said she would bring them in. However, she is okay with getting a repeat CT chest because we do not know if any of these nodules are new or have increased in size. Obesity, class 3 (E66.813)04/17/2025ody mass index [BMI] 40.0-44.9, adult (Z68.41)04/17/2025Type 2 diabetes pkxoycdn02/01/2023ost-menopausal bleeding 06/02/2013History of colonic ajzkjb1906/02/2013Esophageal oalavu2803/14/2011llergic rhinitis, unspecified seasonality, unspecified jwrevqk8203/14/2011 Assessment & Plan (04/24/2025 2:02 PM EST): She states her sinus congestion improved with the regimen suggested last visit. She was encouraged to keep it up, and continue with allergy immunotherapy. AM -Saline rinse -Flonase 2 squirts each nostril -Astapro 1 squirt each nostril PM -Saline rinse -Astapro 1 squirt each nostril Pure vgdbtmkvvuyjrmpdwgmo14/15/2011 Assessment & Plan (01/15/2025 10:35 AM EDT): {A/P Summary:3362997782} Essential hypertension, cpdgll6603/14/2011 Assessment & Plan (01/15/2025 10:35 AM EDT): {A/P Summary:4951783136} Assessment & Plan (06/21/2024 11:01 AM EST): Elevated today and will have her check blood pressure twice a day for a week If this continues to be greater than 130/80 consistently at home would adjust antihypertensive regimen increasing lisinopril to 10 mg daily LINDSAY (obstructive sleep apnea) Assessment & Plan (04/24/2025 2:02 PM EST): A hrws-hn-amwl encounter was performed with the patient today in order to document continued need for positive airway pressure (PAP). -Current DME: [facility] -Sleep study: PSG on 07/03/2024 with AHI 21 (3% Medicare) & 18.6 (4% Medicare) -Most recent titration: PAP titration 07/11/2024, titrated to BiPAP @ IPAP 48rrS2T & EPAP 08dnY2R -Compliance was reviewed from 03/20/2025 to -Total days used: 30/30 (100%) days -Total days of use >4 hours: 30/30 (100%) days with median use of 8 hours 10 minutes -Current model: AirCurve 10 VAuto -Current mode: BiPAP @ IPAP 23bxV5H & EPAP 36kfJ0G -Residual AHI: 0.8 -Median air leak: 8.2L/min -Mask/harness fitting: No issues -Sleep quality with PAP: Better -Residual daytime hypersomnolence: Decreased -Recommendations: Patient lowered the humidity last visit, but that made her cough a little worse instead of better. I recommended she adjust her humidity back to the prior setting (6). She is able to adjust this on her own. Otherwise, continue with current settings. -This documentation authorizes that the patient's DME may request to renew, reorder, and/or replacetubing, mask, filter, any other associated supplies, and the PAP device (if applicable). Assessment & Plan (03/27/2025 5:21 PM EDT): Xlib-sm-sixs encounter performed with the patient to document continued need for PAP therapy. -Current DME: [facility] -PSG 07/03/2024 ; Initial AHI: 21 (3% criteria), 18.6 (4% criteria) -PAP titration: 07/11/2024 BiPAP @ 20/01faV1Q -Compliance was reviewed from 02/25/2025 - 03/26/2025 -Total days used: 30/30 (100%) -Total of all days >4 hours of use: 30/30 (100%) -Current model, mode, & set pressure: AirCurve 10 VAuto BiPAP 20/16 -Residual AHI: 0.9 -Air leak (median): 8.5L/min -Mask/harness fitting: No significant complaints today -Sleep quality: Improved with BiPAP -Daytime hypersomnolence: Decreased with BiPAP use -Recommendations: She continues to have superb compliance without any issues. No plans to change anything today. -The patient was reminded to continue to wear the PAP @ bedtime and with any naps. -This rvkr-ru-dilr visit comes with my authorization that the patient's DME may request to renew, reorder, and/or replace tubing, supplies, mask, and/or PAP device (if applicable). Moderate persistent asthma, uncomplicated Assessment & Plan (04/24/2025 2:02 PM EST): Coughing has improved after prednisone taper, but it is now returning. There is no dyspnea or wheezing. Lungs remain clear. She has identified corn dust as the most likely trigger (which she suspected last visit). She is around it daily, but does not wear a mask. She has not been away for the corn for a long enough period to see if the coughing improves. The coughing does not seem severe enough to begin biologic therapy. She continues to get immunotherapy from Dr. Roach. I recommended she use an N-95 or KN-95 mask when around the corn dust (or anywhere in the barn or where there could be organic dust) to see if that helps. F/U CT chest due in the next 2 weeks can help evaluate any new findings to evaluate the cough (? hypersensitivity pneumonitis). She was encouraged to use albuterol if needed. Peripheral eosinophilia Assessment & Plan (04/24/2025 2:02 PM EST): Eosinophils: -06/09/2024: 300 -03/09/2019: 300 -01/14/2019: 300 Recommended using a mask and continuing with allergy immunotherapy for the time being. Assessment & Plan (03/27/2025 5:21 PM EDT): Eosinophils: -06/09/2024: 300 -03/09/2019: 300 -01/14/2019: 300 Question anti-IL-5 therapy if she remains symptomatic despite allergy immunotherapy. 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 As there is no known association of pulmonary disease with atypical p- ANCA, I will defer to her PCP whether or not she requires another rheumatology referral. 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 LPRD (laryngopharyngeal reflux disease) Assessment & Plan (04/24/2025 2:02 PM EST): No complaints of GERD today. Assessment & Plan (03/27/2025 5:21 PM EDT): No complaints today DM2 (diabetes mellitus, type 2) Assessment & Plan (04/24/2025 2:02 PM EST): Steroids prescribed for this patient's underlying pulmonary disease can adversely affect blood glucose levels, inducing hyperglycemia and/or worsening underlying diabetes. She was encouraged to follow-up with her primary care provider to create a management plan. Assessment & Plan (03/27/2025 5:21 PM EDT): Steroids prescribed for this patient's underlying pulmonary disease can adversely affect blood glucose levels, inducing hyperglycemia and/or worsening underlying diabetes. she was encouraged to follow-up with her primary care provider to create a management plan. Resolved Problems ProblemNoted DateDiagnosed DateResolved DateModerate persistent asthma with acute mhfqsgsiwrvc13 Assessment & Plan (03/27/2025 5:21 PM EDT): Patient's major symptom is coughing. Suspect provoked due to allergens in the air (corn and soybeandust). She does not appear acutely ill. She does have sinus congestion and nasal intonation on examination today. This is very similar to her episode right when she began seeing allergy. Will prescribe her a course of prednisone to see if that calms her symptoms. Use albuterol. Orders: predniSONE (DELTASONE) 20 MG tablet; Take 3 tablets by mouth daily for 3 days, THEN 2 tablets dailyfor 3 days, THEN 1 tablet daily for 3 days. Severe persistent asthma with ybndlhuiinpm86/09/202402/Erythema of breast Burning yejvsgpqf21Acute sinusitis Malignant neoplasm of dome of urinary rsendfw0803/14/2011 10/13/2022Impaired fasting ezzdjfy05 Encounters DateTypeDepartmentCare HqgiFcxqvecxpyz50/ 9:59 AM EST - 05/16/2025 11:59 PM ESTHospital Encounter [facility] [address] [place] [address] Discharge Disposition: Home or Self Care05/10/2025Telephone [facility]monology [address] [place] [address] [address] [place] [address] Blaise Lassiter Other05/10/2025Telephone [facility] Pul[facility]ology [address] [place] [address] Damiansa BlaiseDO 05/09/2025 10:30 AM EST - 05/09/2025 11:59 PM ESTHospital Encounter [facility] [address] [place] [address] Discharge Disposition: Home or Self Care05/09/2025Orders Only [facility]monology [address] [place] [address] [address] [place] [address] Dl House MA Multiple pulmonary tsutaka5705/08/2025Refill [address] [address] Lizabeth Douglas MD Medication Cxjkay1604/24/2025 1:30 PM ESTOffice Visit [facility] [address] [place] [address] Blaise Lassiter, LINDSAY (obstructive sleep apnea) (Primary Dx); Moderate persistent asthma, uncomplicated; Multiple pulmonary nodules; Peripheral eosinophilia; Allergic rhinitis, unspecified seasonality, unspecified trigger; Abnormal ANCA (antineutrophil cytoplasmic antibody); LPRD (laryngopharyngeal reflux disease); DM2 (diabetes mellitus, type 2); Morbid xzwezay4504/23/2025Telephone [address] [address] Lizabeth Douglas MD Xkmukrvh24/18/2025 10:00 AM ESTOffice Visit [address] [phone] Lizabeth Douglas MD Medicare annual wellness visit, subsequent (Primary Dx); Type 2 diabetes mellitus with hyperglycemia, without long-term current use of insulin (HCC); Essential hypertension, benign; Gastroesophageal reflux disease without esophagitis; Pure hypercholesterolemia; Moderate persistent asthma with acute exacerbation; Traumatic subungual ecchymosis of left great toe; Other sleep apnea; Obesity, class 3 (E66.813); Body mass index [BMI] 40.0-44.9, adult (Z68.41); Need for influenza vaccination; Encounter for screening mammogram for malignant neoplasm of dkkvzx2603/29/2025 Abstract [facility] Pulmon[facility] [address] [place] [address] Blaise Lassiter DO 03/27/2025 3:00 PM EDTOffice Visit [facility] [address] [place] [address] Blaise Lassiter DO Moderate persistent asthma with acute exacerbation (Primary Dx); LINDSAY (obstructive sleep apnea); Peripheral eosinophilia; Abnormal ANCA (antineutrophil cytoplasmic antibody); LPRD (laryngopharyngeal reflux disease); DM2 (Diabetes mellitus type 2)03/10/2025[facility] [address] [place] [address] Lizabeth Douglas MD Medication Bhtdbd3903/04/2025[facility] [address] [place] [address] Lizabeth Douglas MD Medication Refillfrom Last 3 Months Immunizations ImmunizationAdministration DatesNext DueCOVID-19, Inactive, J&J, (age 18y+) 08/09/2020,08/09/2020OVID-19, Inactive, PFIZER PURPLE top, DILUTE for use, (age 12 y+)05/30/2021,05/30/2021Influenza, FLUAD, (age 65 y+), IM, Quadv, 0.5mL 04/14/2022,04/08/2021Influenza, FLUARIX, FLULAVAL, FLUZONE (age 6 mo+) and AFLURIA, (age 3 y+), Quadv PF, 0.5mL04/10/2020,04/11/2019,04/12/2018Influenza, FLUCELVAX, (age 6 mo+) IM, Trivalent PF, 0.5mL04/17/2025,04/12/2024Influenza, FLUCELVAX, (age 6 mo+), MDCK, Quadv PF, 0.5mL3Pneumococcal, PPSV23, PNEUMOVAX 23, (age 2y+), SC/IM, 0.5mL04/08/2021 Family History Medical HistoryRelationNameCommentsDiabetesFatherHigh Blood PressureFatherBreast CancerMotherCancerMotherbreast x4, colonHigh Blood PressureMotherBreast Cancer SisterRelationNameStatusCommentsFatherMotherDeceasedSisterAlive Social History Tobacco UseTypesPacks/DayYears UsedDateSmoking Tobacco: NeverPassive Smoke Exposure: NeverSmokeless Tobacco: NeverAlcohol UseStandard Drinks/WeekComments Never0 (1 standard drink = 0.6 oz pure alcohol)[facility] UtilitiesAnswerDate Recorded In the past 12 months has the [employer], gas, oil, or water [employer] threatened to shut off services in your [...] and heating?Not hard at all07/08/2023HQ-2AnswerDate RecordedPHQ-9 Total Xoxbv733Exercise Vital SignAnswerDate RecordedOn average, how many days per week do you engage in moderate to strenuous exercise (like a brisk walk)?0 days04/12/2024On average, how many minutes do you engage in exercise at this level?0 min04/12/2024Hunger Vital SignAnswerDate RecordedWithin the past 12 months, you worried that your food would run out before you got the money to buymore.Never true07/24/2024Within the past 12 months, the food [...] steady place to sleep or slept in [facility] (including now)?No07/08/2023Housing Stability Vital SignAnswerDate RecordedIn the last 12 months, was there a time when you were not able to pay the mortgage or rent on time?No07/24/2024In the past 12 months, how many times have you moved where you were living? At any time in the past 12 months, were you homeless or living in a custodial (including now)?No07/24/2024UDIT-CAnswerDate RecordedQ1: How often do you [...] Safety Domain Source: IP Abuse ScreeningAnswerDate RecordedPhysical otfogBirduv93/03/2025Verbal abuse Xosmet2706/02/2024Emotional whqweVandoc70/03/2025Financial xhubhIvdbwa96/03/2025 Sexual uikqjLguoyc52/03/2025CommentsNoSex and Gender InformationValue Date RecordedSex Assigned at RucowNtnmif75/05/2025 9:37 AM EDTLegal SexFemale 07/10/2012 1:22 PM ESTGender RhebuvptGejweu99/05/2025 9:37 AM EDTSexual LgfneyvedbzBzrzfuov87/05/2025 9:38 AM EDT Last Filed Vital Signs Vital SignReadingTime TakenCommentsBlood Tbjwxbet741/7804/24/2025 1:10 PM EST Kexud657204/24/2025 1:10 PM WOLBumjxpfadis16.9 ??C (96.6 ??F)04/24/2025 1:10 PM ESTRespiratory Fuks464706/24/2024 1:10 PM ESTOxygen Fwoxpnwpne59%04/24/2025 1:10 PM ESTon room airInhaled Oxygen Concentration--Bfgxgj329 kg (235 lb 12.8 oz) 05/16/2025 10:05 AM WZYJivdtp856.8 cm (5' 4.5 )05/16/2025 10:05 AM ESTBody Mass Index39.8505/16/2025 10:05 AM EST Plan of Treatment DateTypeDepartmentCare Team (Latest Contact Info)Gzsesjplbkp12/12/2026 10:30 AM ESTAppointment [facility] Diet and Nutrition [address] [place] [address] Jesus Butler, RD, LD 07/17/2025 10:30 AM ESTOffice Visit [facility] Supervisor [address] [place] [phone] Mickey DO Jamarcus [address] [place] [address] 6 month f/u no thzcaes0107/23/2025 11:[address] [facility] [address] [facility] [place] [phone] Lizabeth Douglas MD [address] [place] [address] 3 mos - DM - A1c07/24/2025 1:30 PM ESTOffice Visit [facility] [address] [place] [address] [address] [place] [address] Blaise Lassiter [address] [facility] [address] [place] [address] 3 MO F/U ASTHMA/OSA07/31/2025 10:00 AM ESTAppointment [facility] [address] [place] [address] Health MaintenanceDue DateLast DoneCommentsHepatitis C dywepy7002/12/1974 DTaP/Tdap/Td vaccine (1 - Tdap)02/12/1975FIT/FOBT: Average risk02/12/2001Fecal- DNA (Cologuard): Average risk02/12/2001Sigmoidoscopy/CT nqwpllyubvvn91/15/2001 Shingles vaccine (1 of 2)02/12/2006Respiratory Syncytial Virus (RSV) or age 60 yrs+ (1 - Risk 60-74 years 1-dose series)2016Pneumococcal 50+ years Vaccine (2 of 2 - PCV)/1COVID-19 Vaccine ( - season)51, 05/30/2021, 08/09/2020, Additional history exists Breast cancer dmmhli175107/23/2023, 05/20/2023, 05/19/2022, Additional history existsDiabetic retinal exam, 06/02/2022, 06/10/2021, Additional history bjiyemR2X test (Diabetic or Prediabetic)07/18/2025 04/17/2025, 10/17/2024, 07/24/2024, Additional history existsDiabetic Alb to Cr ratio (uACR) test, 10/04/2023, 09/25/2022, Additional history existsGFR test (Diabetes, CKD 3-4, OR last GFR 15-59)10/17/2025 10/17/2024, 06/02/2024, 10/04/2023, Additional history xilhorPyoqgp68/20/2026 10/17/2024, 10/04/2023, 09/25/2022, Additional history existsDepression Screen , 04/17/2025Diabetic foot exam, 10/07/2023, 04/14/2022, Additional history existsAnnual Wellness Visit (Medicare), 04/12/2024, 9251Kiteryqxube43/03/2035 06/02/2024, 06/19/2013Colorectal Cancer Yqzxlj635Cervical cancer screen DiscontinuedHPV (without or with Pap)Gljpwplesbpg88/13/2018Pap smearDiscontinued 04/12/2018, 11/24/2013, 08/27/2011Pneumococcal 0-49 years VaccineDiscontinued 1DEXA (modify frequency per FRAX score)Thzerryrw21/03/2021Flu vaccine Dhzzkzfgz40/18/2025, 04/12/2024, 04/06/2023, Additional history existsHepatitis A vaccineAged OutNo longer eligible based on patient's age to complete this topicHepatitis B vaccineAged OutNo longer eligible based on patient's age to complete this topicHib vaccineAged OutNo longer eligible based on patient's age to complete this topicMeningococcal (ACWY) vaccineAged OutNo longer eligible based on patient's age to complete this topicMeningococcal B vaccineAged OutNo longer eligible based on patient's age to complete this topicPolio vaccineAged OutNo longer eligible based on patient's age to complete this topic Procedures Procedure NamePriorityDate/TimeAssociated DiagnosisCommentsCT CHEST WO CONTRAST Mxxicgi2905/08/2025 Multiple pulmonary nodules POCT GLYCOSYLATED HEMOGLOBIN (HGB A1C)Cuxhixh0004/17/2025 11:03 AM EST Type 2 diabetes mellitus with hyperglycemia, without long-term current use of insulin (HCC) COMPREHENSIVE METABOLIC SBJBLNttuhmy02/20/2025 8:48 AM EDT Type 2 diabetes mellitus with hyperglycemia, without long-term current use of insulin (HCC) LIPID DFCTTJcepfys22/20/2025 8:48 AM EDT Type 2 diabetes mellitus with hyperglycemia, without long-term current use of insulin (HCC) ALBUMIN/CREATININE RATIO, JPEEWVvjqlrm77/20/2025 8:48 AM EDT Type 2 diabetes mellitus with hyperglycemia, without long-term current use of insulin (HCC) DIABETES EYE NUWKKhmyjoa62/07/2025 1:58 PM ESTMAM RENEE DIGITAL SCREEN VJZGPXCCQXbkfmkl82/23/2024 10:32 AM EST Encounter for screening mammogram for malignant neoplasm of breast DEXA LNBGHdpvdia55/03/2021GYN SYFSTKAQXngzoti95/13/2018 9:45 AM EST HUMAN PAPILLOMAVIRUS (HPV) DNA PROBE THIN PREP HIGH IGUURpiaqlf28/13/2018 9:24 AM EST NOFQPOTXPWFAfeuhyh04/20/2014 Colon cancer screening from Last 3 Months or Most Recently Relevant to Health Maintenance Results * CT CHEST WO CONTRAST (05/08/2025)Anatomical RegionLateralityModalityChest Computed Tomography Narrative Authorizing ProviderResult TypeResult StatusNatjatin [facility] ORDERABLES Final Result * (ABNORMAL) POCT glycosylated hemoglobin (Hb A1C) (04/17/2025 11:03 AM EST) ComponentValueRef RangeTest MethodAnalysis TimePerformed AtPathologist SignatureHemoglobin A1C12.1%Specimen (Source)Anatomical Location / Laterality Collection Method / VolumeCollection TimeReceived TimeBLOOD SPECIMEN / Unknown 04/17/2025 11:03 AM EST Narrative Authorizing ProviderResult TypeResult StatusLizabeth Douglas MDPOINT OF CARE TEST ORDERABLESFinal Result * Albumin/Creatinine Ratio, Urine (10/17/2024 8:48 AM EDT)ComponentValueRef RangeTest MethodAnalysis TimePerformed AtPathologist SignatureAlbumin Urine<12 0 - 20 mg/L10/17/2024 8:48 AM EDTMERCY LABORATORIESCreatinine, Ur99.728.0 - 217.0 mg/dL10/17/2024 8:48 AM EDTMERCY LABORATORIESComment:Reference range defined for 1st morning urineMicroalb/Occupational Therapy Professor. RatioCan not be calculated0.0 - 25.0 mcg/mg creat10/17/2024 8:48 AM EDTMERCY LABORATORIESSpecimen (Source) Anatomical Location / LateralityCollection Method / VolumeCollection Time Received TimeUrine (Urine)10/17/2024 8:48 AM EDT10/17/2024 8:49 AM EDT Narrative Authorizing ProviderResult TypeResult Mendoza Douglas MDURINE ORDERABLES Final ResultPerforming OrganizationAddressCity/State/ZIP CodePhone Number [facility] [address] [place] [address], [facility] [phone] [facility] [address] [place], [place] [address] [phone] * Lipid Panel (10/17/2024 8:48 AM EDT)ComponentValueRef RangeTest MethodAnalysis TimePerformed AtPathologist SignatureCholesterol, Wziyq6916 - 199 mg/dL 10/17/2024 8:48 AM EDTMERCY LABORATORIESComment: Cholesterol Guidelines: <200 Desirable 200-240 ??Borderline >240 Undesirable HDL55>40 mg/dL10/17/2024 8:48 AM EDTMERCY LABORATORIESComment: HDL Guidelines: <40 Undesirable 40-59 ?Borderline >59 Desirable LDL Wahvwgwhcti529 - 100 mg/dL10/17/2024 8:48 AM EDTMERCY LABORATORIESComment: LDL Guidelines: <100 Desirable 100-129 ?? Near to/above Desirable 130-159 ?? Borderline >159 Undesirable Direct (measured) LDL and calculated LDL are not interchangeable tests. Chol/HDL Ratio2.9<5.005 8:48 AM EDTMERCY JGXDPACOTOYDFjwiquymhqcfu932 <150 mg/dL10/17/2024 8:48 AM EDTMERCY LABORATORIESComment: Triglyceride Guidelines: <150 Desirable 150-199 ??Borderline 200-499 ??High >499 Very high Based on AHA Guidelines for fasting triglyceride, February 2012. LBLX637 - 30 mg/dL10/17/2024 8:48 AM EDTMERCY LABORATORIESSpecimen (Source) Anatomical Location / LateralityCollection Method / VolumeCollection Time Received TimeBloodBLOOD SPECIMEN / Tugzvpf4510/17/2024 8:48 AM EDT10/17/2024 8:49 AM EDT Narrative Authorizing ProviderResult TypeResult StatusNancy L Verlindsay MDCHEMISTRY ORDERABLESFinal ResultPerforming OrganizationAddressCity/State/ZIP CodePhone Number [facility] [address] [place] [address], [facility] [phone] [employer] [address] [place] [address], [facility] [phone] * (ABNORMAL) Comprehensive Metabolic Panel (10/17/2024 8:48 AM EDT)Component ValueRef RangeTest MethodAnalysis TimePerformed AtPathologist SignatureSodium 801043 - 144 mmol/L10/17/2024 8:48 AM R&L LABPotassium4.4 3.7 - 5.3 mmol/L10/17/2024 8:48 AM R&L FSVKltdaxox94462 - 107 mmol/L10/17/2024 8:48 AM CiviQARD XSKFD69799 - 31 mmol/L 10/17/2024 8:48 AM R&L LABAnion Bfh948 - 17 mmol/L 10/17/2024 8:48 AM EDTMERCY [facility]ALTH [facility] MTFEcuwswr736(H)70 - 99 mg/dL 10/17/2024 8:48 AM EDTMERCStockpulse [place] DVKTQL191 - 23 mg/dL10/17/2024 8:48 AM EDTMERCY [employer] [place] LABCreatinine0.80.5 - 0.9 mg/dL10/17/2024 8:48 AM EDTMAdnavance Technologies OLIVER LABEst, Glom Filt Rate80>60 mL/min/1.30v19910/17/2024 8:48 AM [employer] [facility] LABComment: ? These results are not intended for use in patients <18 years of age. ? eGFR results are calculated without a race factor using the 2020 CKD-EPI equation. Careful clinical correlation is recommended, particularly when comparing to results calculated using previous equations. The CKD-EPI equation is less accurate in patients with extremes of muscle mass, extra-renal metabolism of creatine, excessive creatine ingestion, or following therapy that affects renal tubular secretion. Calcium9.88.6 - 10.4 mg/dL10/17/2024 8:48 AM [employer] [facility] LABTotal Protein7.06.4 - 8.3 g/dL10/17/2024 8:48 AM [employer] [facility] LABAlbumin3.9 3.5 - 5.2 g/dL10/17/2024 8:48 AM [employer] [facility] LABAlbumin/Globulin Ratio1.31.0 - 2.505 8:48 AM [employer] OL[facility] LABTotal Bilirubin 0.50.3 - 1.2 mg/dL10/17/2024 8:48 AM [facility]DE[facility] LABAlkaline Ttxwbwdrgqj2473 - 104 U/L10/17/2024 8:48 AM [employer] [facility] ZLQKLI375 - 33 U/L10/17/2024 8:48 AM [facility] IMOJPO52<32 U/L10/17/2024 8:48 AM [employer] [facility] LABSpecimen (Source)Anatomical Location / Laterality Collection Method / VolumeCollection TimeReceived TimeBloodBLOOD SPECIMEN / Dauknlw14/ 8:48 AM EDT10/17/2024 8:49 AM EDT Narrative Authorizing ProviderResult TypeResult StatusLizabeth Douglas MDCHEMISTRY ORDERABLESFinal ResultPerforming OrganizationAddressCity/State/ZIP CodePhone Number [facility] [address] [place] [id number], [facility] [phone] * DIABETES EYE EXAM (06/06/2024 1:58 PM EST) Narrative Authorizing ProviderResult TypeResult StatusHistorical Provider [facility] MAINTENANCEFinal Result * [facility] DIGITAL SCREEN BILATERAL (05/22/2024 10:32 AM EST)Anatomical Region LateralityModalityBreastBilateralMammographySpecimen (Source)Anatomical Location / LateralityCollection Method / VolumeCollection TimeReceived Time 05/22/2024 10:32 AM EST Impressions 05/23/2024 1:57 PM EST OVERALL ASSESSMENT: BIRADS: 1 Negative, no evidence of malignancy. A letter of notification will be mailed to the patient. Performing Facility: [facility] [address] [place] [address] Narrative 05/23/2024 1:57 PM EST HISTORY: Screening. Family history of breast carcinoma. [...] skin lesions and linear markers represent scars.) Authorizing ProviderResult TypeResult StatusLizabeth Douglas MDIMG MAMMOGRAPHY ORDERABLESFinal Result * DEXA SCAN (05/02/2021)Anatomical RegionLateralityModalityOther Narrative Authorizing ProviderResult TypeResult StatusHistorical Provider [facility] MAINTENANCEFinal Result * CLEAN OUT DRILLER HELPER Cytology (04/12/2018 9:45 AM EST)ComponentValueRef RangeTest Method Analysis TimePerformed AtPathologist SignatureCytology Report(NOTE) [id number] [facility] ANATOMIC PATHOLOGY [address] ??[place], [place] [address] GYNECOLOGIC CYTOLOGY REPORT Patient Name: KATHRYN HARGROVE MR#: [id number] Specimen #[id number] Source: 1: Cervical material, (ThinPrep vial, Imaging-assisted review) Clinical History Postmenopausal Z12.4 Encounter for screening for malignant neoplasm of cervix Co-Test: ??ThinPrep Pap with high risk HPV testing INTERPRETATION Cervical material, (ThinPrep vial, Imaging-assisted review): Specimen Adequacy: ?Satisfactory for evaluation. ?- Endocervical/transformation zone component present. Descriptive Diagnosis: ?Negative for intraepithelial lesion or malignancy. Comments: ?High Risk HPV testing was ordered. Lithographer Apprentice: ?? BRENDA Potter(ASCP) Electronically Signed Out milagro/04/28/2018 Procedure/Addendum HPV Procedure Report ? Date Ordered: ? 04/13/2018 ? Status: Signed Out ?Date Complete: ? 04/13/2018 ? By: BRENDA Funez(ASCP) ?Date Reported: ? 04/29/2018 ? INTERPRETATION Clarice HPV DNA High Risk ? HPV Sample ? Thin Prep ?(Ref Range) HPV Type 16 ? Not Detected ?(Not Detected) HPV Type 18 ? Not Detected ?(Not Detected) Other High Risk HPV ? Not Detected ?(Not Detected) ??This test amplifies and detects DNA of 14 high-risk HPV types associated with cervical cancer and its precursor lesions (HPV types 16, 18, 31, 33, 35, 39, 45, 51, 52, 56, 58, 59, 66, and 68). Sensitivity may be affected by specimen collection methods, stage of infection, and the presence of interfering substances. ??Results should be interpreted in conjunction with other available laboratory and clinical data. ??A negative high-risk HPV result does not exclude the possibility of future cytologic HSIL or underlying CIN2-3 or cancer. This test is intended for medical purposes only and is not valid for the evaluation of suspected sexual abuse or for other forensic purposes. ??04/29/2018 12:00 AM [facility] LABORATORIESSpecimen (Source)Anatomical Location / LateralityCollection Method / VolumeCollection TimeReceived Time04/12/2018 9:45 AM EST04/13/2018 9:45 AM EST Narrative Authorizing ProviderResult TypeResult StatusNancy Connie Douglas MDPATHOLOGY/CYTOLOGY ORDERABLESEdited Result - FinalPerforming OrganizationAddressCity/State/ZIP CodePhone Number [facility] [address] [address], [facility] [phone] [place] [id number] [address] [phone] * Human papillomavirus (HPV) DNA probe thin prep high risk (04/12/2018 9:24 AM EST)ComponentValueRef RangeTest MethodAnalysis TimePerformed AtPathologist SignatureHPV SOURCECERVICAL EKHVUPAS97/14/2018 9:24 AM [employer] HPV Sample.THIN PREP04/13/2018 9:24 AM ESTM[facility] LABORATORIESHPV, Genotype 16 Not RajkqwrbSWPXTO94/14/2018 3:22 PM [facility] LABORATORIESHPV, Genotype 18Not DoutbnxqPNIQJD22/14/2018 3:22 PM [facility] LABORATORIESHPV, High Risk OtherNot SjakfpywUUCLBW46/14/2018 3:22 PM [facility] LABORATORIESHPV, Interpretation 04/13/2018 3:22 PM E[facility] LABORATORIESComment: This test amplifies and detects DNA of 14 high-risk HPV types associated with cervical cancer and its precursor lesions (HPV types 16,18, 31, 33, 35, 39, 45, 51, 52, 56, 58, 59, 66, and 68). ? Sensitivity may be affected by specimen collection methods, stage of infection, and the presence of interfering substances. Results should be interpreted in conjunction with other available laboratory and clinical data. A negative high-risk HPV result does not exclude the possibility of future cytologic HSIL or underlying CIN2-3 or cancer. ? This test is intended for medical purposes only and is not valid for the evaluation of suspected sexual abuse or for other forensic purposes. Specimen (Source)Anatomical Location / LateralityCollection Method / Volume Collection TimeReceived Time04/12/2018 9:24 AM EST04/13/2018 9:24 AM EST Narrative Authorizing ProviderResult TypeResult StatusNanroberto Douglas MDHEMATOLOGY ORDERABLESFinal ResultPerforming OrganizationAddressCity/State/ZIP CodePhone Number [facility] [address] [facility] [place] [address], [facility] [phone] [place] [id number], [facility] [phone] * HM COLONOSCOPY (06/19/2013) Narrative Alexandre Zamora - 06/19/2013 [facility] ? [address] [place], [place] ??[address] ? OPERATIVE REPORT ?? Patient: KATHRYN HARGROVE ? Reg#: ??[id number] ?? Date: ?1955 Patient Status: ? Clinic Code: Room: ? Adm: ?06/19/2013 Sex: ? F ?Dis: Attending: ? Jamarcus Dailey M.D. ?Date of Surgery: ??06/19/2013 Dct By: ?Jamarcus Dailey M.D. PCP Phys: ?Lizabeth Douglas M.D. ?? Document#: ? [id number] ?Job#: ? [id number] Date/Time Typed: 06/20/2013 10:58 A ? By: ? dfw Date/Time Dct: ?? 06/19/2013 ?10:04 A ?PC ?Facility: ? M0 ?? SURGEON: Jamarcus Dailey M.D. ?? PREOPERATIVE DIAGNOSIS: Gastroesophageal reflux disease and history of colon polyps. ?? POSTOPERATIVE DIAGNOSES: 1. ??Polyps in the body of the stomach x9. 2. ??Colonic polyp x2 at 20 cm, which was approximately the proctosigmoid junction. ?? PROCEDURES: 1. ??Esophagogastroduodenoscopy. 2. ??CLOtesting of the gastric antrum. 3. ??Cold grasp polypectomy x9 in the body of the stomach. 4. ??Colonoscopy. 5. ??Cold grasp polypectomy x2 at the proctosigmoid junction, which was approximately 20 cm. ?? ANESTHESIA: General endotracheal. ?? BRIEF DESCRIPTION OF PROCEDURE: At the conclusion of Dr. Tinsley's procedure, the patient remained under general endotracheal anesthesia. ??She was positioned in a left lateral decubitus position. ??A flexible endoscope was entered into the oral cavity and advanced under direct visualization to the 2nd portion of the duodenum. The scope was then slowly withdrawn and the contents inspected meticulously. ??There were no abnormalities appreciated within the duodenum. Pulling back into the stomach, there was no evidence of gastritis. ??No evidence of ulceration. ??Retroflexion of the scope did not reveal any abnormalities. ??Pulling the scope slowly back, the gastric mucosa was inspected meticulously. ??In the body of the stomach, there were several small polyps. ??Counting the polyps, there was approximately 9 polyps. These were removed using a cold grasp biopsy forceps and a cold snare. Pulling back towards the GE junction, there was no abnormalities. ??The esophagus appeared within normal limits as well. ??The scope was then removed and the patient was prepared for colonoscopy. ??A digital rectal examination was performed. ??There were no abnormalities appreciated on digital rectal examination. ??A flexible colonoscopy was then introduced into the anus and advanced to the ileocecal junction under direct visualization. ??It was noted that colonic prep was excellent. ??The scope was then slowly withdrawn and the colonic mucosa inspected for abnormalities. ??It was noted that the patient had 2 polyps at approximately 20 cm from the anal verge, which was at the proctosigmoid junction. ??Both polyps were removed using a cold grasp biopsy forceps. ??Retroflexion within the rectum revealed very mild nonbleeding, non-thrombosed, noninfected, internal hemorrhoids. ??Scope was then removed. ??Patient was awakened and taken to the PACU in good and stable condition. ?? Of note, CLOtesting was performed at the gastric antrum because of the patient's complaints of intractable GERD. ??There was minimal blood loss. ?? COMPLICATIONS: None. ?? SPECIMENS: Gastric and colonic polyps. ?? DISPOSITION: The patient will be discharged home and follow-up in Dr. Dailey's clinic in approximately 2 weeks. ? In order to promptly notify physicians concerning their patients, this unconfirmed document is being released. ??It is not considered final until reviewed and signed. ? Authorizing ProviderResult TypeResult StatusJeremy Sarah DOHEALTH MAINTENANCE Final Result from Last 3 Months or Most Recently Relevant to Health Maintenance Insurance Advance Directives * Full Code (Latest Code Status on File) Date ActivatedDate InactivatedComments06/02/2024 6:40 AM06/02/2024 11:09 AM * Full Code Date ActivatedDate InactivatedComments06/19/2013 7:02 AM06/19/2013 4:52 PM NameRelationshipHealthcare Agent RelationshipCommunicationAlvin WeidengerSpouse Primary Decision Maker* * Care Teams Team MemberRelationshipSpecialtyStart DateEnd Date Lizabeth Douglas MD [address] [place] [address] PCP - GeneralFamily Medicine10/27/17
--- OUTSIDE RECORDS SUMMARY | 2025-05-25 10:30 | XMS_ITS | Clinical Summary ---
Author Organization [facility] Address [address] [place] [address] Care Team Providers Care Bell Tier Name Role Phone Lizabeth Douglas MD Primary Care Provider [phone] Haider Lopez MD Unavailable [phone] Neftaly Mcmanus DO Unavailable [phone] Blaise Lassiter DO Unavailable [phone] Allergies Active AllergyReactionsCriticalityNoted DateCommentsLosartanRash,SwellingLow 11/29/20130365MrezexaatxrUekzUcy80/15/2011 Medications MedicationSigDispense QuantityRefillsLast FilledStart DateEnd DateStatus Ascorbic Acid (vitamin C) 500 MG tablet Take 1 tablet by mouth DailyActive cetirizine (ZyrTEC) 10 MG tablet Take 1 tablet by mouth DailyActive CINNAMON PO Take by mouthActive glimepiride (Amaryl) 2 MG tablet Take 1 tablet by mouth in the morning.03/15/2023ctive hydroCHLOROthiazide (HYDRODiuril) 25 MG tablet Take 1 tablet by mouth Daily06/04/2023ctive lisinopril 10 MG tablet Take 1 tablet by mouth Daily06/04/2023ctive lovastatin (Mevacor) 40 MG tablet Take 40 mg by mouth at ccjrtaq2506/04/2023ctive meloxicam (Mobic) 15 MG tablet Take 1 tablet by mouth Daily06/30/2023ctive metFORMIN XR (Glucophage-XR) 500 MG 24 hr tablet 06/03/2023ctive metoprolol succinate XL (Toprol-XL) 25 MG 24 hr tablet Take 1 tablet by mouth Daily06/04/2023ctive omega-3 (Fish Oil) 1000 MG capsule Take 3 capsules by mouth DailyActive alpha tocopherol (Vitamin E) 400 units capsule Take 1 capsule by mouth DailyActive Multiple Vitamins-Minerals (ZINC PO) Take by mouthActive VITAMIN D PO Take by mouthActive GLUCOSAMINE-CHONDROITIN PO Take by mouthActive zinc gluconate 50 MG tablet Take 50 mg by mouth DailyActive esomeprazole (NexIUM) [address] capsule Take 40 mg by mouth in the morning. Take before meals.09/30/2023ctive Arnuity Ellipta 100 MCG/ACT inhaler Active Active Problems ProblemNoted DateDiagnosed DateHistory of bladder qeatba7607/13/2023eviated nasal iyikoy9407/09/2023Lumbar degenerative disc pwdmzkn7407/09/2023olyneuropathy due to type 2 diabetes leyoeyfs95/09/2024Type 2 diabetes jzrlavft89/01/2023sthma 03/14/2011Esophageal tkonrp3103/14/2011Essential hypertension, onjkcr1603/14/2011 Pure rlnbmmwrsbzomkfuomjl68/15/2011 Resolved Problems ProblemNoted DateDiagnosed DateResolved DateBMI 39.0-39.9,adult03/17/2024 03/17/20244390Xnjheqg59Mild intermittent asthma, uncomplicated eripheral krnosjoqksga22 Encounters DateTypeDepartmentCare HsewBomadxcpdty10/04/2025 11:00 AM ESTOffice Visit [facility] [address] [place] [phone] Fidel Garcia DPM Contusion of left great toe with damage to nail, initial encounter (Primary Dx); Diabetic polyneuropathy associated with type 2 diabetes mellitus (HCC); Onychomycosis; Pain in both feet04/03/2025amboo flowsheet [facility] [address] [place] [phone] Fidel Garcia DPM 04/03/2025Travelfrom Last 3 Months Immunizations ImmunizationAdministration DatesNext DueInfluenza, Dyxaerqeayb71/12/2019, 04/12/2018Influenza, injectable, MDCK, preservative free, aegljarkvsth65/07/2023 Pneumococcal Polysaccharide CDBY393606/08/2020 Family History Medical HistoryRelationNameCommentsDiabetesFatherhtnFatherCancerMotherhtnMother RelationNameStatusCommentsFatherMother Social History Tobacco UseTypesPacks/DayYears UsedDateSmoking Tobacco: NeverSmokeless Tobacco: Never Tobacco Cessation:Counseling Given: Not Answered Alcohol UseStandard Drinks/WeekCommentsNever0 (1 standard drink = 0.6 oz pure alcohol)CommentsUnknownSex and Gender InformationValueDate RecordedSex Assigned at BirthNot on fileLegal NsiMratpu80/15/2023 7:21 PM EDTGender Identity Not on fileSexual OrientationNot on file Last Filed Vital Signs Vital SignReadingTime TakenCommentsBlood Ppsglyqu567/7711 10:58 AM EST Ygcil252104/03/2025 10:58 AM ESTTemperature--Respiratory Foju955707/13/2023 9:47 AM ESTOxygen Saturation--Inhaled Oxygen Concentration--Niaeco034 kg (240 lb) 04/03/2025 10:58 AM SPPEkfzed519.1 cm (5' 5 )04/03/2025 10:58 AM ESTBody Mass Index39.9404/03/2025 10:58 AM EST Plan of Treatment DateTypeDepartmentCare Team (Latest Contact Info)Urrtayoqsvs27/14/2026 9:00 AM EDTProcedure Visit [facility] [address] [place] [address] Fidel Garcia DPM [address] [place] [address] Health MaintenanceDue DateLast DoneCommentsCT Rcjgyqazdxmt1955FIT-DNA 1955FIT1955FOBT1955 1755Jbjtfiyxnqvku1955Pneumococcal Vaccine: 65+ Years (2 of 2 - PCV)Influenza Vaccine (#1) 5106/12/2023, 04/06/2023, 04/11/2019, Additional history existsMammogram 5107/23/2023, 05/22/2024, 05/20/2023, Additional history exists Zgbnobfhhya48/03/60700606/02/2024, 06/19/2013, 12/29/2006Colorectal Cancer Hchzuchdh49/03/2035Diabetes: Hemoglobin L6LWwvriqntwerc59/20/2025, 10/04/2023, 09/25/2022, Additional history exists Insurance Care Teams Team MemberRelationshipSpecialtyStart DateEnd Date Lizabeth Douglas MD [address] [place] [address] PCP - GeneralFamily Medicine07/13/23 Haider Lopez MD [facility] [place] [address] Referring PhysicianFamily Ljhjorrj34/21/24 Neftaly Mcmanus DO [address] [place] [address] Ouavokvlmulszm61/21/24 Blaise Lassiter DO [address] [place] [address] Referring PhysicianPulmonary Disease07/19/24
--- OUTSIDE RECORDS SUMMARY | 2025-05-25 10:30 | XMS_ITS | Patient Health Record ---
Author Organization [facility] in [place] Address [address] [place] [address] Care Team Providers Care Landscape Designer Name Role Phone Lizabeth Douglas MD Primary Care Provider Jodie Nelson Unavailable [phone] Allergies Allergen (clinical drug ingredient) Drug/Non Drug Allergy documented on EMR Reaction Allergy Type Onset Date Status montelukast Montelukast Rash, Hives Drug Allergy Active Results Component Value Reference Range Notes CT Chest High Resolution Reviewed date:11/02/2024 12:16:28 PM Interpretation: Performing Lab: Notes/Report: CT chest wo con (Not yet rev iewed by provider) Interpretation: Performing Lab: Notes/Report: Source Facility: [place] [address] CT Scan Report Signed Patient: TULIO HARGROVE MR#: [id number] : 1955 Acct:[id number] Age/Sex: 70 / F ADM Date: 05/08/25 Loc: CT Attending Dr: Jodie Cedeño D.O. Ordering Physician: Jodie Cedeño D.O. Date of Service: 05/08/25 Procedure(s): CT chest wo con Accession Number(s): [id number] cc: Lizabeth Douglas M.D. [place] [address] Patient Name: TULIO HARGROVE MRN: [id number] date: 1955 Sex: F Assigned Patient Location: CT Current Patient Location: CT Accession/Order Number: [id number] Exam Date: 05/08/2025 10:28 Report Date: 05/08/2025 17:59 At the request of: JODIE CEDEÑO DO Procedure: CT chest wo con CT CHEST WITHOUT IV CONTRAST: CLINICAL HISTORY: Multiple Pulmonary Nodules COMPARISON: 11/02/2024 TECHNIQUE: Spiral images were obtained through the chest without IV contrast. This CT exam was performed using one or more following dose reduction techniques: Automated exposure control, adjustment of the mA and/or kV according to patient size, or use of iterative reconstruction technique. FINDINGS: Mediastinum:Cardiac megaly. Triple vessel coronary artery calcifications. Trace pericardial fluid. No pathologically enlarged mediastinal or hilar adenopathy. Lungs:Lungs are clear. No focal disc desiccation or pneumothorax. Minimal groundglass opacity within the subpleural aspect of the right lateral frontal lobe noted of doubtful clinical significance. Stable basilar predominant nodularity including a subpleural nodule left lower lobe currently 1 cm in size, producing 9 mm, not significant changed. Minimal nodularity left lower lobe 4 mm in size. C3 over size, not significantly changed. 8mm nodule right lower lobe, previously 6 mm also NOT significantly change. There is minimal predominantly granulomatous calcified nodules within the medial aspect of the right middle lobe likely chronic finding. Abd:Cholecystectomy. Focal liver lesion noted near the falciform ligaments 2.1 cm in size this may present a cyst versus focal fatty replacement. Consider ultrasound. Soft tissues/Bones: Multilevel degenerative changes throughout the thoracic spine. [] CT/CT chest wo con IMPRESSION: Stable bibasilar predominance pulmonary nodules. These measure slightly larger as examination is thought to be due to differences in technique rather than true progression. Continued surveillance recommended. Focal hypoattenuation involving the liver noted 2.1 cm in size possibly cysts of focal fatty replacement. This can be further characterize with ultrasound when clinically feasible. Impression dictated by: Ramana Olivera M.D. 05/08/2025 5:59 PM Dictation Location: [place] [address] Electronically authenticated by: [id number] Y Date: 05/08/2025 17:59 Dictated By: Ramana Olivera M.D. Signed By: 05/08/25 180 DD/ 1759 TD/TT: Principal Security Architect: CT chest high res Reviewed date:11/02/2024 10:40:43 AM Interpretation: Performing Lab: Notes/Report: Source Facility: [place] [address] CT Scan Report Signed Patient: TULIO HARGROVE MR#: [id number] : 1955 Acct:[id number] Age/Sex: 69 / F ADM Date: 11/02/24 Loc: CT Attending Dr: Jodie Cedeño D.O. Ordering Physician: Jodie Cedeño D.O. Date of Service: 11/02/24 Procedure(s): CT chest high res Accession Number(s): [id number] cc: Lizabeth Douglas M.D. [place] [address] Patient Name: TULIO HARGROVE MRN: [facility]:[id number] date: 1955 Sex: F Assigned Patient Location: CT Current Patient Location: CT Accession/Order Number: [id number] Exam Date: 11/02/2024 09:47 Report Date: 11/02/2024 10:03 At the request of: JODIE CEDEÑO DO Procedure: CT chest high res RESOLUTION CT CHEST WITHOUT CONTRAST COMPARISON: None CLINICAL DATA: Chronic cough. Eosinophilia Spiral axial unenhanced images were obtained through the chest. Images were reconstructed at 1 mm sections at 10 mm increments. Patient was also scanned in prone position with high-resolution technique. Images were reviewed using both narrow and wide window settings. This CT exam was performed using one or more following dose reduction techniques: Automated exposure control, adjustment of the mA and/or kV according to patient size, or use of iterative reconstruction technique. The heart is top normal in size. No pericardial effusion is present. Mild coronary disease is seen. There is no aortic aneurysm. There is mild plaque at the aortic arch and proximal great vessels. There are small nonpathologic calcified and noncalcified mediastinal lymph nodes. There are also calcified right hilar granulomas. Bronchial wall calcification is present. Subtle dextroscoliotic curvature and mild degenerative changes are visualized at the spine. There is minor basilar atelectasis or scarring. No consolidation, pleural effusion or pneumothorax is seen. No interstitial or obstructive disease is identified. There is no bronchiectasis. A 6 mm noncalcified nodule is present within the right lower lobe. There is a subpleural nodule at the lateral left lower lobe measuring approximately 9 mm in greatest dimension. There is also a small 4 mm nodule in close proximity. A calcified granuloma is seen at the right middle lobe. Limited cuts through the upper abdomen show calcified hepatic and splenic granulomas. CT/CT chest high res IMPRESSION: GRANULOMATOUS CHANGES. MINOR ATELECTASIS AND/OR SCARRING. INCIDENTAL PULMONARY NODULARITY, DESCRIBED. [address] FOLLOW-UP COULD BE CONSIDERED. NO ACUTE FINDINGS. Impression dictated by: Tulio Pinto M.D. 11/02/2024 10:03 AM Dictation Location: [place] [address] Electronically authenticated by: [id number] Y Date: 11/02/2024 10:03 Dictated By: Tulio Pinto M.D. Signed By: 11/02/24 1006 DD/ 1003 TD/TT: Principal Security Architect: Reason For Referral Reason Allergic rhinitis an d asthma - previously on allergy immunotherapy ; please evaluate for allergy testing Diagnosis 1 Moderate persistent asthma, uncomplicated (J45.40) Diagnosis 2 Allergic rhinitis (J 30.9) Referral Organization [facility] Referring Provider First Name Jodie Referring Provider Last Name Maikol Referring Provider Speciality Pulmonolog y Referred Provider Ezequiel Roach Referred Provider Specialty Allergy/Immu nology General Notes [facility] 11/16 04:25:16 PM >Referral faxed to 's office., [facility] 11/21/2024 11:58:39 AM >I called and left a voicemail to find out if the referral was received and if the patient has been scheduled ?, [facility] 11/22/2024 02:40:43 PM >I received a voicemail from 's office stating they contacted the patient and scheduled the patient for 01/05/2025 at 0920. The office can be reached at [phone]., [facility] 01/08/2025 08:44:54 AM >Consult note received via fax from 's office. Scanned into chart. Referral closed. Referral Priority Routine Referral Appointment Date 01/05/2025 Medications Medication SIG (Take, Route, Frequency, Duration) Notes Start Date End Date Status Vitamin D 25 MCG (1000 UT) 1 tablet Orally Once a day ActiveFish Oil 1000 MG1 capsule Orally Three times a dayActiveVitamin E 400 UNIT 1 capsule Orally Once a dayActivehydroCHLOROthiazide 25 MGOral; Duration: 90 DaysActiveLisinopril 10 MG1 tablet Orally Once a day; Duration: 90 daysActive Glimepiride 4 MGOral; Duration: 90 DaysActiveZinc 50 MG1 tablet Orally Once a dayActiveGlucosamine Chond Cmp Advanced -as directed OrallyActiveTrelegy Ellipta 200-62.5-25 MCG/ACT1 puff Inhalation Once a dayActivemetFORMIN HCl ER 500 MG Oral; Duration: 90 DaysActiveAlbuterol Sulfate HFA 108 (90 Base) MCG/ACT2 puffs as needed Inhalation every 4 hrsActiveMetoprolol Succinate ER 25 MGOral; Duration: 90 DaysActiveLovastatin 40 MGOral; Duration: 90 DaysActiveMeloxicam 15 MGOral; Duration: 90 DaysActiveCinnamon 500 MGas directed OrallyActiveVitamin C 500 MGas directed OrallyActiveEsomeprazole Magnesium 40 MGTAKE 1 CAPSULE BY MOUTH EVERY EVENING FOR 90 DAYS Oral; Duration: 90 DaysActive Immunizations Vaccine Route Administration Date Status Comme nts Flu, Flucelvax (00291) 6 mos and older, single-dose syringe (8992-2370) Unknown 04/12/2024 Administered Pneumococcal (Pneumovax 23)Xugdfzz29/09/0191WpiblckgwqukSOIX-YLA-4 (COVID 19 Pfizer 30mcg/0.3mL)Lqijcno40/31/2021Administered Social History Tobacco Use: Social History Observation Description Date Details (start date - stop date) Never Smoker NA - NA Tobacco Control (Standard) Question Answer Notes Tobacco use: Nonsmoker Problems Problem Type SNOMED Code ICD Code Onset Dates Problem Status W/U Status Risk Notes Problem Uncomplicated modera te persistent asthma (264881918) Moderate persistent asthma, uncomplicated (J45.40) ActiveconfirmedProblemMorbid obesity (297395352)Morbid obesity (E66.01)Active confirmedProblemObstructive sleep apnea syndrome (19274935)LINDSAY (obstructive sleep apnea) (G47.33)ActiveconfirmedProblemAllergic rhinitis (10778628)Allergic rhinitis (J30.9)ActiveconfirmedProblemDiabetes mellitus type 2 (disorder) (70030589)DM2 (diabetes mellitus, type 2) (E11.9)ActiveconfirmedProblemIncreased immunoglobulin (479925161)Elevated IgE level (R76.8)ActiveconfirmedProblem Multiple pulmonary nodules (289359251)Multiple pulmonary nodules (R91.8)Active confirmedProblemAbnormal ANCA test (R76.8)ActiveconfirmedProblem Laryngopharyngeal reflux (975971935)LPRD (laryngopharyngeal reflux disease) (K21.9)ActiveconfirmedProblemCalcified lymph nodes (243612589)Calcified lymph nodes (I89.8)ActiveconfirmedProblemPeripheral eosinophilia (D72.19)Active confirmed Vital Signs Heart Rate 73 /min 11/15/2024 Jfexjgwbltk79.0 degrees Abhjngskbs61/18/2025Respiratory Rate18 /min11/15/2024 Blood pressure dqjakmjps79 mm Hg11/15/20241687Wyhvyrql21 %11/15/20240406Jkadwh96.0 in 11/15/2024lood pressure jghjkalo613 mm Hg11/15/20248490Cgmuiw048.0 lbs11/15/2024MI 40.5 kg/m211/15/2024 Encounters Encounter Location Date Provider Diagnosis [facility] [address] [place] [address] 08/24/2024 [facility] [address] [place] [address]/17/20[facility] [address] [place] [address] 09/27/2024Jodie CedeñoOSA (obstructive sleep apnea) G47.33 ; Moderate persistent asthma, uncomplicated J45.40 ; Allergic rhinitis J30.9 ; Abnormal ANCA test R76.8 ; Peripheral eosinophilia D72.19 and LPRD (laryngopharyngeal reflux disease) K21.9[facility] [address] [place] [address] [facility]01[facility]24[facility], [facility] J45.40 ; Chronic cough R05.3 ; LINDSAY (obstructive sleep apnea) G47.33 ; Allergic rhinitis J30.9 ; Abnormal ANCA test R76.8 ; Peripheral eosinophilia D72.19 ; LPRD (laryngopharyngeal reflux disease) K21.9 and Morbid obesity E66.01[facility] [address] [address]/[facility] Moderate persistent asthma, uncomplicated J45.40 ; Chronic cough R05.3 ; Multiple pulmonary itzcnjoA57.8 ; Calcified lymph nodes I89.8 ; LINDSAY (obstructive sleep apnea) G47.33 ; Allergic rhinitis J30.9 ; Abnormal ANCA test R76.8 ; Peripheral eosinophilia D72.19 ; LPRD (laryngopharyngeal reflux disease) K21.9 and Morbid obesity E66.01 Assessments Encounter Date Diagnosis (ICD Code) Assessment Notes Treatment Notes Treatment Clinical Notes Section Notes 11/01/2024 Moderate persistent asthma, unco mplicated (ICD-10 - J45.40) Prior treatments (all ineffective): Dulera, Symbicort, Advair, Arnuity See above. Will try Trelegy 200. She was counseled to rinse after use. May need to conisder biologic therapy in the future. 5Chronic cough (ICD-10 - R05.3) Chronic cough for >10 years. She has been treated for asthma, GERD/LPR, and PND/UACS without anysignificant improvement in symptoms. Previously on allergy immunotherapy several decades ago; most recently, she claims that the camp cook told her there was nothing else that could be done. Etiologyis unclear. Discussed options at this time: -Referral to another camp cook for second opinion -HRCT -Biologic (e.g. Nucala, [...] need PAT and anesthesia will be involved. 11/15/2024Moderate persistent asthma, uncomplicated (ICD-10 - J45.40) Prior treatments (all ineffective): Trelegy 200, Dulera, Symbicort, Advair, Arnuity Patient is wheezy today. No response to any inhaler. PFT technically normal. Referral to camp cook.Chronic prednisone therapy - would like to avoid. Biologic? Referral to cardiology? Stop Trelegy since she voices no benefit from use. 09/27/2024OSA (obstructive sleep apnea) (ICD-10 - G47.33) Bwvs-da-sjjd encounter performed with the patient to document continued need for PAP therapy. -Current DME: [facility] -PSG 07/03/2024 ; Initial AHI: 21 (3% criteria), 18.6 (4% criteria) -PAP titration: 07/11/2024 BiPAP @ 20/40dmS9Q -Compliance was reviewed from 08/21/2024 - 09/19/2024 [...] of LINDSAY with BiPAP use. She is havinga good subjective response. Only concern is a mild air leak - she is getting a new mask which should hopefully fix the issue. No issues otherwise with pressures. -The patient was reminded to continue to wear the PAP @ bedtime and with any naps. -This iuti-tr-impm visit comes with my authorization that the patient's DME may request to renew, reorder, and/or replace tubing, supplies, mask, and/or PAP device (if applicable). 09/27/2024Moderate persistent asthma, uncomplicated (ICD-10 - J45.40) Prior [...] may need to consider either referral to camp cook for allergy testing or a biologic (e.g. Dupixent, Fasenra). 5Allergic rhinitis (ICD-10 - J30.9) Patient admits Flonase [...] no improvement, consider biologic or referral to camp cook for allergy testing - she states she previously was on allergy immunotherapy. 11/15/2024hronic cough (ICD-10 - R05.3) Chronic cough for >10 years. Treatment failures include Trelegy 200, PPI. No ILD or bronchiectasis noted on HRCT. PFT technically normal. She does have some benefit from restarting a nasal regimen. Discussed bronchoscopy last visit, but she had issues with anesthesiology, so it would need to be performed with great care. She admits to prior allergy immunotherapy in the past. Eosinophils are elevated, so discussed allergy component with cough? Discussed options. Patient elected to proceed with referral back to camp cook. She requested a second opinion. Will refer to Dr. Roach for evaluation and immunotherapy if indicated. Hold on any further w/up until she is evaluated. If Dr. Roach does not feel there is anything he can do from his standpoint, then may look into biologic therapy vs. bronchoscopy (leaning towards biologics). 11/15/2024Multiple pulmonary nodules (ICD-10 - R91.8) HRCT 11/02/2024 revealed several pulmonary nodules: -LLL: 9mm -RLL: 6mm -LLL: 4mm -RML: Calcified granuloma Utilizing a solitary pulmonary nodule risk calculator ([facility] Model), risk of malignancy of the nodule/largest nodule is 4.6%. She is a lifelong nonsmoker. According to Fleischner Society Guidelines, recommended F/U for this patient is [address] chest without contrast (better for nodules than HRCT). 11/01/2024OSA (obstructive sleep apnea) (ICD-10 - G47.33) Tnfe-rx-bskm encounter performed with the patient to document continued need for PAP therapy. -Current DME: [facility] -PSG 07/03/2024 ; Initial AHI: 21 (3% criteria), 18.6 (4% criteria) -PAP titration: 07/11/2024 BiPAP @ 20/75tiO0Z -Compliance was reviewed from 09/26/2024 - 10/25/2024 [...] of LINDSAY with BiPAP use. She is havinga good subjective response. Only concern is a mild air leak - she is getting a new mask which should hopefully fix the issue. No issues otherwise with pressures. -The patient was reminded to continue to wear the PAP @ bedtime and with any naps. -This cbej-wy-xsmk visit comes with my authorization that the patient's DME may request to renew, reorder, and/or replace tubing, supplies, mask, and/or PAP device (if applicable). 11/01/2024llergic rhinitis (ICD-10 - J30.9) Nasal regimen with saline rinse, Flonase, and Astapro did not have any significant improvement. 11/15/2024alcified lymph nodes (ICD-10 - I89.8) Calcified mediastinal and right hilar lymph nodes Suggestive of old granulomatous disease. Discussed testing for fungus and sarcoidosis as a possibility. 09/27/2024bnormal ANCA test (ICD-10 - R76.8) 06/09/2024: Atypical pANCA 1:640 with MPO >8. These are not associated with any known pulmonary disease at this time. They can be seen in primarysclerosing cholangitis, autoimmune hepatitis, and ulcerative colitis. Patient has some vague abdominal symptoms - she is going to discuss these results with her PCP. 09/27/2024Peripheral eosinophilia (ICD-10 - D72.19) Eosinophils: -06/09/2024: 300 -03/09/2019: 300 -01/14/2019: 300 Mild elevation in eosinophils. Associated with allergies? Potential biologic candidate in the future? 11/15/2024OSA (obstructive sleep apnea) (ICD-10 - G47.33) Rcey-wa-tbeb encounter performed with the patient to document continued need for PAP therapy. -Current DME: [facility] -PSG 07/03/2024 ; Initial AHI: 21 (3% criteria), 18.6 (4% criteria) -PAP titration: 07/11/2024 BiPAP @ 20/63guB0S -Compliance was reviewed from 10/16/2024 - 11/14/2024 -Total days used: (100%) -Total of all days >4 hours of use: 30 (100%) -Current model, mode, & set pressure: AirCurve 10 VAuto BiPAP 20/16 -Residual AHI: 1.1 -Air leak (median): 9.4L/min -Mask/harness fitting: No issues today -Sleep quality: Improved with BiPAP -Daytime hypersomnolence: IImproved -Recommendations: Superb compliance. She voiced she is very happy with her BiPAP and the response she had from it. -The patient was reminded to continue to wear the PAP @ bedtime and with any naps. -This wner-ip-qhvt visit comes with my authorization that the patient's DME may request to renew, reorder, and/or replace tubing, supplies, mask, and/or PAP device (if applicable). 11/01/2024bnormal ANCA test (ICD-10 - R76.8) 06/09/2024: Atypical pANCA 1:640 with MPO >8. Correlation with cough is unclear. EGPA typically would have an eosinophil count greater than 300, but I cannot R/O anything at this point. May need to consider biologic to treat (e.g. Nucala) if further w/up is unremarkable. 11/01/2024Peripheral eosinophilia (ICD-10 - D72.19) Eosinophils: -06/09/2024: 300 -03/09/2019: 300 -01/14/2019: 300 May consider biologic treatment in the future despite unremarkable PFT. 11/15/2024llergic rhinitis (ICD-10 - J30.9) Now stating nasal regimen with saline rinse, Flonase, and Astapro has some improvement (previously denied any). Will refer to camp cook. 09/27/2024LPRD (laryngopharyngeal reflux disease) (ICD-10 - K21.9) Symptoms of LPR/GERD resolved with LINDSAY use, but cough remained. She stopped PPI without any worsening cough or recurrence of reflux symptoms. 11/15/2024bnormal ANCA test (ICD-10 - R76.8) 06/09/2024: Atypical pANCA 1:640 with MPO >8. Unclear relationship with asthma. No other evidence for eosinophilic granulomatosis with polyangiitis (EGPA, formerly known as Churg-Charles). 11/01/2024LPRD (laryngopharyngeal reflux disease) (ICD-10 - K21.9) Potential contributor to cough, but she denies any symptoms of reflux at this time. 11/01/2024Morbid obesity (ICD-10 - E66.01) Patient's weight is inducing a restrictive pulmonary physiology. Weight loss indicated: Decrease calories, increase activity. 11/15/2024Peripheral eosinophilia (ICD-10 - D72.19) Eosinophils: -06/09/2024: 300 -03/09/2019: 300 -01/14/2019: 300 11/15/2024LPRD (laryngopharyngeal reflux disease) (ICD-10 - K21.9) Potential contributor to cough, but she denies any symptoms of reflux at this time. 11/15/2024Morbid obesity (ICD-10 - E66.01) Patient's weight is inducing a restrictive pulmonary physiology. Weight loss indicated: Decrease calories, increase activity. Plan Of Treatment Pending Test Test Name Order Date CT chest wo con 05/08/2025 Future Test Test Name Order Date CT Chest w/o contrast 05/01/2025 Insurance Providers Payer Name Payer Address Payer Phone Subscriber Number Group Number Insured Name Patient Relationship to Insured Coverage Start Date Coverage End Date [place] [address] [place] [address] [id number] Marie Hargrove - patient is the insuredAETNA SUPPLEMENT PLANPO [address] [address] [place], [place] [id number], KarenSelf - patient is the insured Medical (General) History Medical History History ICD Code LINDSAY (obstructive sleep apnea) G47.33 Moderate persistent asthma, uncomplicate d J45.40 Peripheral eosinophilia D72.19 LPRD (laryngopharyngeal reflux disease) K21.9 GERD (gastroesophageal reflux disease) K 21.9 OA (osteoarthritis) M19.90 HTN (hypertension) I10 DM2 (diabetes mellitus, type 2) E11.9 HLD (hyperlipidemia) E78.5 Elevated IgE level R76.8 Abnormal ANCA test R76.8 Allergic rhinitis J30.9 Cervical spinal stenosis M48.02 Calcified lymph nodes I89.8 Multiple pulmonary nodules R91.8 History of bladder cancer Z85.51 Morbid obesity E66.01 Surgical History Surgery Date(Month/Year) dilatation and curettage cholecystectomycyst removal-neckdeviated septum repaircarpal tunnel release-rightexcision of vocal cord nodulebladder surgery
--- NOTE | 2025-05-25 11:06 | MM_ITS ---
Patient Name: TULIO HARGROVE MR#: [id number] : 1955 Exam Date: 05/25/2025 Ordering Doctor: SUZANNE GARCIA RADIOLOGY REPORT PROCEDURE: MM TOMOSYNTHESIS SCREENING BI COMPARISON: MM TOMOSYNTHESIS SCREENING BI, 05/22/2024. MM TOMOSYNTHESIS SCREENING BI, 05/20/2023. MM TOMOSYNTHESIS SCREENING BI, 05/19/2022. MG MAMM SCREEN 3D JAMIE CAD, 05/02/2021. INDICATIONS: Screening Calculator Name NCI Breast Cancer Risk Assessment Tool 5 Year Breast Cancer Risk 10.90% Lifetime Breast Cancer Risk 29.90% Personal Breast Cancer No Personal Ovarian Cancer No Treatments None Family Cancers Sister with breast cancer at age 58; Mother with breast cancer at age 62; Mother with colon cancer at age 80. LOCATION: [facility] BREAST COMPOSITION: There are scattered areas of fibroglandular density. FINDINGS: DIAGNOSTIC CATEGORY 1--NEGATIVE. RIGHT BREAST: No significant suspicious finding. LEFT BREAST: No significant suspicious finding. RECOMMENDATIONS: ROUTINE MAMMOGRAM AND CLINICAL EVALUATION IN 12 MONTHS. Dictated by: Ramana Olivera MD on 05/25/2025 at 12:42 Approved by: Ramana Olivera MD on 05/25/2025 at 12:44
== END 2025-05-25 10:27 | disposition home or self-care (01) ==
LOC: MAMMO 10:26
PROVIDERS: PCP Family Medicine; Visit Provider Family Medicine
DX: Z12.31 Encounter for screening mammogram for malignant neoplasm of breast (principal); Z80.3 Family history of malignant neoplasm of breast; Z80.0 Family history of malignant neoplasm of digestive organs
CPT/HCPCS: 77063; 77067